=== PATIENT | female | born 1940 | race Caucasian/White ===

== ENCOUNTER → 2024-11-09 | Outpatient (CLI) | payer MEDICARE, SELFPAY ==
[2024-11-09 16:51] LABS: Collection Type, Urine Clean Catch; Squamous Epithelial Cell,Urine 0 /hpf (0-5)
[2024-11-09 17:40] LABS: Basophils % (Auto) 0 % (0-2.5); Eosinophils % (Auto) 0 % (0-10); Hematocrit 33.7 % (36.0-46.0); Hemoglobin 11.5 g/dL (12.0-16.0); Immature Granulocytes % (Auto) 2 % (0-0); Immature Granulocytes Auto 0.25 Thou/mm3 (0.00-0.00); Lymphocytes # (Auto) 0.7 Thou/mm3 (1.0-4.8); Lymphocytes % (Auto) 6 % (10-50); Mean Corpuscular HGB Conc 34.1 g/dl (31.0-37.0); Mean Corpuscular Hemoglobin 39.8 pg (25.0-35.0); Mean Corpuscular Volume 117 fL (80-100); Monocytes # (Auto) 0.1 Thou/mm3 (0.0-0.8); Monocytes % (Auto) 1 % (0-12); Neutrophils # (Auto) 10.2 Thou/mm3 (1.8-7.7); Neutrophils % (Auto) 90 % (37-80); Nucleated Red Blood Cell % 0 /100 WBC (0); Platelet Count 463 Thou/mm3 (140-440); RDW Standard Deviation 72.8 fL (36.4-46.3); Red Blood Count 2.89 Miln/mm3 (4.00-5.20); White Blood Count 11.3 Thou/mm3 (3.6-11.0)
[2024-11-09 17:53] LABS: B-Type Natriuretic Peptide 296 pg/mL (0-100)
[2024-11-09 18:02] LABS: Bacteria,Urine Rare; Bilirubin,Urine Negative (Negative); Blood,Urine Negative (Negative); Clarity,Urine Clear (Clear/Hazy); Color,Urine Lt-Yellow (Lt Yel-Yel); Glucose, Urine Negative (Negative); Hyaline Casts,Urine < 1 /hpf (0-1); Ketones,Urine Negative (Negative); Leukocyte Esterase,Urine Positive (Negative); Nitrite,Urine Negative (Negative); PH,Urine 6.5 (5.0-7.0); Protein,Urine Negative (Neg - Trace); RBC,Urine 1 /hpf (0-3); Specific Gravity,Urine 1.009 (1.001-1.035); Urobilinogen,Urine Negative mg/dL (0.0-1.0); WBC,Urine 2 /hpf (0-5)
[2024-11-09 18:11] LABS: Alanine Aminotransferase 16 U/L (10-49); Albumin/Globulin Ratio 1.5 (1.2-2.2); Alkaline Phosphatase 40 U/L (46-116); Anion Gap 7 (7-16); Aspartate Amino Transferase 26 U/L (0-34); BUN/Creatinine Ratio 20 Ratio (12-20); Bilirubin,Total 1.2 mg/dL (0.3-1.2); Blood Urea Nitrogen 22 mg/dL (9-23); Calcium 9.2 mg/dL (8.3-10.6); Calcium (Corrected) 9.2 mg/dL (8.5-10.1); Carbon Dioxide 29.4 mMol/L (20.0-31.0); Chloride 98 mMol/L (98-107); Creatinine (Component) 1.1 mg/dL (0.6-1.3); Globulin 2.6 gm/dL (2.3-3.5); Glucose 92 mg/dL (74-106); Osmolality,Calculated 271 (275-295); Potassium 4.9 mMol/L (3.4-5.1); Sodium 134 mMol/L (136-145); Total Protein 6.6 gm/dL (5.7-8.2); Troponin I < 0.020 ng/mL (0.0-0.045); eGFR 50 See Note
[2024-11-09 18:33] LABS: D-Dimer < 250 ng/mL (<600)
== END | disposition home or self-care (01) ==
LOC: COPL 16:17
PROVIDERS: PCP Specialist; Referring Provider Specialist; Visit Provider Specialist
DX: R22.43 Localized swelling, mass and lump, lower limb, bilateral (principal); R07.9 Chest pain, unspecified; R41.0 Disorientation, unspecified
CPT/HCPCS: 36415; 80053; 81001; 83880; 84484; 85025; 85379; 87077; 87086; 87186

== ENCOUNTER 2024-12-07 09:56 | Emergency (ER) | payer MEDICARE, SELFPAY ==
[2024-12-07 10:06] VITALS: BP 181/70; PULSE 83; RESP 18; TEMP 36.9; O2SAT 96
--- NOTE | 2024-12-07 11:02 | EKG_ITS ---
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: : 1940 Requested By: Landry Norton Order Number: [id number] Reading MD: Landry Norton Measurements Intervals Susan Rate: 84 P: MO: QRS: -54 QRSD: 91 T: 87 QT: 360 QTc: 426 Interpretive Statements ATRIAL FLUTTER/TACHYCARDIA LEFT AXIS DEVIATION [QRS AXIS < -30] POSSIBLE ANTERIOR MYOCARDIAL INFARCTION , PROBABLY OLD [30 ms Q WAVE IN V3/V4, OR R < 0.2 mV IN V4] Compared to ECG 01/14/2023 10:09:15 Left-axis deviation now present Atrial fibrillation no longer present Ventricular premature complex(es) no longer present Aberrant conduction of supraventricular beat(s) no longer present Myocardial infarct finding still present /store/S0/[id number].pdf
--- NOTE | 2024-12-07 11:02 | XR_ITS ---
Examination: PA chest single view Technique: Upright PA chest single view Exam date and time: December 07, 2024, 11:10 AM Indications: Onset of bleeding beginning 3 days ago. Findings: Moderate CHF. Mild enlargement cardiac contour. Prominent vascular congestion. Perihilar basilar edema. Consider superimposed pneumonia right base Impression: Moderate CHF Consider superimposed pneumonia right base.
--- NOTE | 2024-12-07 11:02 | PD.EDRME ---
Rapid Medical Screening Exam [facility] Arrival date/time: 12/07/24 09:56 CC: Shortness of breath HPI progressive worsening over the past 3 days now sitting upright oxygen increased from 2 to 3 L nasal cannula has a history of pulmonary fibrosis, COPD, CHF and is residing in a assisted care facility. Denies fever or chest pain. Chief Complaint: Shortness of Breath/Dyspnea Time Seen by Provider: 12/07/24 11:01 Vital signs: Vital Signs Temperature 98.4 F 12/07/24 10:06 Pulse Rate 83 12/07/24 10:06 Respiratory Rate 18 12/07/24 10:06 Blood Pressure 181/70 H 12/07/24 10:06 Pulse Oximetry (%) 96 12/07/24 10:06 Oxygen Delivery Method Nasal Cannula 12/07/24 10:06
[2024-12-07 11:33] LABS: Collection Type, Urine Clean Catch; Squamous Epithelial Cell,Urine 0 /hpf (0-5)
[2024-12-07 11:47] LABS: Bilirubin,Urine Negative (Negative); Blood,Urine Negative (Negative); Clarity,Urine Clear (Clear/Hazy); Color,Urine Lt-Yellow (Lt Yel-Yel); Glucose, Urine Negative (Negative); Ketones,Urine Negative (Negative); Leukocyte Esterase,Urine Negative (Negative); Nitrite,Urine Negative (Negative); Protein,Urine Trace (Neg - Trace); RBC,Urine 4 /hpf (0-3); Specific Gravity,Urine 1.011 (1.001-1.035); Urobilinogen,Urine Negative mg/dL (0.0-1.0); WBC,Urine 2 /hpf (0-5)
[2024-12-07 12:07] LABS: Basophils % (Auto) 0 % (0-2.5); Eosinophils % (Auto) 0 % (0-10); Hematocrit 32.8 % (36.0-46.0); Hemoglobin 11.1 g/dL (12.0-16.0); Immature Granulocytes % (Auto) 2 % (0-0); Immature Granulocytes Auto 0.22 Thou/mm3 (0.00-0.00); Lymphocytes # (Auto) 0.5 Thou/mm3 (1.0-4.8); Lymphocytes % (Auto) 5 % (10-50); Mean Corpuscular HGB Conc 33.8 g/dl (31.0-37.0); Mean Corpuscular Hemoglobin 39.5 pg (25.0-35.0); Mean Corpuscular Volume 117 fL (80-100); Monocytes # (Auto) 0.1 Thou/mm3 (0.0-0.8); Monocytes % (Auto) 1 % (0-12); Neutrophils # (Auto) 9.3 Thou/mm3 (1.8-7.7); Neutrophils % (Auto) 91 % (37-80); Nucleated Red Blood Cell % 0 /100 WBC (0); Platelet Count 350 Thou/mm3 (140-440); RDW Standard Deviation 71.6 fL (36.4-46.3); Red Blood Count 2.81 Miln/mm3 (4.00-5.20); White Blood Count 10.2 Thou/mm3 (3.6-11.0)
[2024-12-07 12:23] LABS: INR 1.3 (0.9-1.3); Partial Thromboplastin Time 34.5 Seconds (22.0-36.0); Prothrombin Time 13.7 Seconds (9.0-12.2)
[2024-12-07 12:39] LABS: Alanine Aminotransferase 14 U/L (10-49); Albumin, Serum 3.7 gm/dL (3.4-4.8); Albumin/Globulin Ratio 1.4 (1.2-2.2); Alkaline Phosphatase 40 U/L (46-116); Anion Gap 7 (7-16); Aspartate Amino Transferase 27 U/L (0-34); BUN/Creatinine Ratio 20 Ratio (12-20); Bilirubin,Total 1.4 mg/dL (0.3-1.2); Blood Urea Nitrogen 16 mg/dL (9-23); Calcium 9.4 mg/dL (8.3-10.6); Calcium (Corrected) 9.6 mg/dL (8.5-10.1); Carbon Dioxide 28.1 mMol/L (20.0-31.0); Chloride 98 mMol/L (98-107); Creatinine (Component) 0.8 mg/dL (0.6-1.3); Globulin 2.7 gm/dL (2.3-3.5); Glucose 102 mg/dL (74-106); Magnesium 1.5 mg/dL (1.6-2.6); Osmolality,Calculated 267 (275-295); Potassium 4.2 mMol/L (3.4-5.1); Sodium 133 mMol/L (136-145); Total Protein 6.4 gm/dL (5.7-8.2); Troponin I < 0.020 ng/mL (0.0-0.045); eGFR > 60 See Note
[2024-12-07 12:52] LABS: Amphetamine/Methamp Scrn,U Negative (Negative); Barbiturate Screen,Urine Negative (Negative); Benzodiazepines Screen,Urine Negative (Negative); Benzoylecgonine Screen, Ur Negative (Negative); Opiate Screen,Urine Negative (Negative); THC Screen,Urine Negative (Negative)
[2024-12-07 12:54] LABS: B-Type Natriuretic Peptide 301 pg/mL (0-100)
[2024-12-07 14:16] LABS: Fentanyl Screen,Urine Negative (Negative)
[2024-12-07 15:14] LABS: LDH (Lactate Dehydrogenase) 402 U/L (120-246)
[2024-12-07 15:38] VITALS: BP 123/69; PULSE 79; RESP 18; TEMP 36.6; O2SAT 100
--- NOTE | 2024-12-07 16:45 | EDNOTE_ITS ---
<Statement entered by Marlene Guerra MD - 12/07/24 17:38> As co-signing physician, I was present and available for consult prn. I concur with the plan and care as documented by the midlevel provider. ED SOB =RME/HPI General Chief Complaint: Shortness of Breath/Dyspnea Stated Complaint: SOB Time Seen by Provider: 12/07/24 11:01 Arrival date/time: 12/07/24 09:56 RME / HPI RME / HPI Narrative: 84-year-old female patient, with significant history of pulmonary fibrosis, COPD, congestive heart failure, residing in an assisted penitentiary, came in for evaluation regarding worsening shortness of breath. Has been having worsening shortness of breath for the last 3 days, worse this morning associated with cough. Denies any chest pain denies any fever denies any other complaints no medication was taken prior to arrival. Patient is on oxygen 24/7 2 to 3 L nasal cannula. Related Data Home Medications ?Medication ?Instructions ?Recorded ?Confirmed allopurinol 300 mg tablet 300 mg PO QDAY 10/11/1801/17 alpha lipoic acid 600 mg capsule 600 mg PO QDAY 07/09/23 atorvastatin 40 mg tablet 40 mg PO QDAY 01/14/2308/30 benazepril 10 mg tablet 10 mg PO BID 01/14/23 carvedilol 12.5 mg tablet 12.5 mg PO TID 01/14/2301/17 cetirizine 10 mg tablet 10 mg PO QDAY 01/14/2308/30 cholecalciferol (vitamin D3) 125 5,000 unit PO QDAY 08/30/23 mcg (5,000 unit) tablet (Vitamin D3) famotidine 40 mg tablet 40 mg PO QDAY 01/14/2308/30 folic acid 1 mg tablet 1 mg PO TID 01/14/23 3 mirabegron 50 mg tablet,extended 50 mg PO QDAY 3 08/30/23 release 24 hr (Myrbetriq) montelukast 10 mg tablet 10 mg PO QDAY 01/14/2308/30 omeprazole 40 mg capsule,delayed 40 mg PO QDAY 3 08/30/23 release apixaban 2.5 mg tablet (Eliquis) 2.5 mg PO BID 3 08/30/23 nitroglycerin 0.4 mg sublingual 0.4 mg buccal Q5M PRN Chest Pain 01/15/23 08/30/23 tablet ondansetron HCl 4 mg tablet 4 mg PO QDAY PRN Nausea 08/30/23 albuterol sulfate 90 mcg/actuation 1 inh inhalation BI D 07/09/23 08/30/23 aerosol inhaler bumetanide 1 mg tablet 1 mg PO QDAY 07/09/23 fluticasone 250 mcg-salmeterol 50 1 inh inhalation BID 07/09/23 08/30/23 mcg/dose blistr powdr for inhalation (Advair Diskus) guaifenesin 600 mg tablet,extended 600 mg PO BID 07/0907/09/23 release hydroxyurea 500 mg capsule 1,000 mg PO HS 07/09/2301/17 potassium chloride 10 mEq 10 meq PO QDAY 07/09/2306/27 capsule,extended release Previous Rx's ?Medication ?Instructions ?Recorded aspirin 81 mg tablet,delayed 81 mg PO QDAY #30 tabs release levofloxacin 500 mg tablet 500 mg PO Q24H 7 days #7 ta bs 12/07/24 Allergies Allergy/AdvReac Type Severity Reaction Status Date / Time iodine Allergy Severe Swelling Verified 12/07/24 10:25 of Lip/Tongue/Throat shellfish derived Allergy Severe Swelling Verified 12/07/24 10:25 of Lip/Tongue/Throat Review of Systems Review of Systems Narrative Review of Systems: Review of system reviewed and within normal limits except mentioned in HPI ED Exam Narrative Physical exam: VITAL SIGNS: Reviewed. GENERAL APPEARANCE: Alert and interactive, follows commands, no acute distress, cachectic HEAD AND FACE: Non-traumatic. ENT: PERRL, pink conjunctivitis, eyelid no trauma, Mucous membrane moist. NECK: Supple, nontender, no nuchal rigidity. CHEST: No tenderness, no crepitus, no paradoxical movement, no retractions. LUNGS: Clear, well ventilated, symmetric, no rales, no wheezing, no ronchi, no stridor, good breath sounds bilaterally. HEART: Regular rate, regular rhythm, no murmur, no gallops. ABDOMEN: Soft, positive bowel sounds, nondistended, no guarding, nontender, no rebound, no masses, RECTAL: Deferred. GENITAL: Deferred. NEUROLOGICAL: Gross motor function intact sensory function intact, Appropriate for age. MUSCULOSKELETAL: low back nontender, full range of motion. EXTREMITIES: Nontender, full range of motion. Bilateral lower extremity +2 edema SKIN: Color pink, dry, no rash, no lacerations, no abrasions, no contusions. LYMPHATICS: Deferred. Course Quality Measures none Orders Category Date Time Status Bedside COVID-19 Antigen Test NOW Care 12/07/24 11:02 Active Bedside Influenza A&B Antigen Test NOW Care 12/07/24 11:02 Completed EKG (ED ONLY) *Do not use* NOW Care 12/07/24 11:02 Completed EKG (ED Only) Stat Exams 12/07/24 11:02 Draft XR chest 1V Stat Exams 12/07/24 11:02 Completed B-Type Natriuretic Peptide Stat Lab 12/07/24 11:46 Completed CBC Stat Lab 12/07/24 11:46 Completed Comprehensive Metabolic Panel Stat Lab 12/07/24 11:46 Completed Drug Screen,Urine Stat Lab 12/07/24 11:27 Completed LDH (Lactate Dehydrogenase) Stat Lab 12/07/24 11:46 Completed Magnesium Stat Lab 12/07/24 11:46 Completed Partial Thromboplastin Time Stat Lab 12/07/24 11:46 Completed Prothrombin Time with INR Stat Lab 12/07/24 11:46 Completed Troponin I Stat Lab 12/07/24 11:46 Completed Urinalysis Stat Lab 12/07/24 11:27 Completed Vital Signs Vital signs: Vital Signs Temperature 98.4 F 12/07/24 10:06 Pulse Rate 83 12/07/24 10:06 Respiratory Rate 18 12/07/24 10:06 Blood Pressure 181/70 H 12/07/24 10:06 Pulse Oximetry (%) 96 12/07/24 10:06 Oxygen Delivery Method Nasal Cannula 12/07/24 10:06 Shortness of Breath / Dyspnea MDM Narrative MDM Narrative:: 84-year-old female patient, with 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 Has been having worsening shortness of breath for the last 3 days, worse this morning associated with cough. Denies any chest pain denies any fever denies any other complaints no medication was taken prior to arrival. Patient is on oxygen 24/7 2 to 3 L nasal cannula. Patient's laboratory workup came back with no leukocytosis, the rest of the labs unremarkable. Urinalysis no UTI. Chest x-ray showed beginning right base pneumonia, congestive heart failure. Results discussed with the patient and family. Patient will be sent home on Levaquin. Currently patient told me that her symptoms is better. Satting 100% on 2 L nasal cannula Patient data External records reviewed:: None Clinical information provided by:: patient Social determinants that could affect healthcare access:: none Patient has the following chronic illnesses:: COPD, pulmonary fibrosis, congestive heart failure How is presenting disease/condition affected by chronic disease/condition?: exacerbated by Evaluation data The following diagnostics were reviewed and interpreted by me:: lab results, radiology exam(s) and EKG tracing(s) Lab and/or radiology exams considered but not ordered:: None Interpretation Summary: See results in MDM. EKG showed normal sinus rhythm, no ST segment elevation or depression noted. Medications / Prescriptions Medications or Prescriptions considered but not ordered:: None Medication administrations:: None Consultations Consultation(s) initiated? (list below): No Diagnosis Shortness of Breath Differential Diagnosis: acute exacerbation of chronic obstructive airways disease, congestive heart failure and community acquired pneumonia Most likely diagnosis given after review of the tests above:: Shortness of breath, pneumonia Admission Indicated Admission indicated?: not indicated Admission Request Was there a request for admission?: No Disposition Plan Disposition Plan: Discharge Discharge Attestation Discharge Attestation: The patient and all family members were given an opportunity to ask questions and understood the discharge instructions. Discharge instructions specifically effects, indications for sooner follow up or return to the emergency department, and the expected course of current diagnosis. Patient condition: Stable Discharge Plan Plan Patient Disposition: HOME (Self Care) Disposition Comment: Stable Prescriptions/Referrals Prescriptions/Med Rec: New levofloxacin 500 mg tablet 500 mg PO Q24H 7 Days Qty: 7 0RF No Action allopurinol 300 mg Tablet 300 mg PO QDAY alpha lipoic acid 600 mg Capsule 600 mg PO QDAY omeprazole 40 mg capsule,delayed release(DR/EC) 40 mg PO QDAY atorvastatin 40 mg tablet 40 mg PO QDAY cetirizine 10 mg Tablet 10 mg PO QDAY famotidine 40 mg tablet 40 mg PO QDAY folic acid 1 mg tablet 1 mg PO TID montelukast 10 mg tablet 10 mg PO QDAY benazepril 10 mg tablet 10 mg PO BID cholecalciferol (vitamin D3) [Vitamin D3] 125 mcg (5,000 unit) Tablet 5,000 unit PO QDAY Myrbetriq 50 mg tablet extended release 24 hr 50 mg PO QDAY carvedilol 12.5 mg tablet 12.5 mg PO TID ondansetron HCl 4 mg tablet 4 mg PO QDAY PRN (Reason: Nausea) Patient Comments: TAKE 1 TABLET BY MOUTH EVERY DAY NEEDED FOR NAUSEA AND VOMITING FOR 15 DAYS nitroglycerin 0.4 mg tablet, sublingual 0.4 mg BUCCAL Q5M PRN (Reason: Chest Pain) Patient Comments: 1 TABLET SUBLINGUAL EVERY 5 MINUTES NEEDED CHEST PAIN MAXIMUM OF 3 DOSES 30 DAYS Eliquis 2.5 mg tablet 2.5 mg PO BID aspirin 81 mg tablet,delayed release (DR/EC) 81 mg PO QDAY Qty: 30 3RF hydroxyurea 500 mg capsule 1,000 mg PO HS fluticasone propion-salmeterol [Advair Diskus] 250-50 mcg/dose Blister With Device 1 inh INHALATION BID potassium chloride 10 mEq capsule, extended release 10 meq PO QDAY guaifenesin 600 mg Tablet Extended Release 600 mg PO BID bumetanide 1 mg tablet 1 mg PO QDAY albuterol sulfate 90 mcg/actuation Hfa Aerosol Inhaler 1 inh INHALATION BID Referrals: Burak Hebert MD [Primary Care Provider] - In 1 week Problem List Clinical Impression: Shortness of breath, Pneumonia Patient/Caregiver Discharge Instructions Discharge Activity: activity as tolerated Education Materials: ED Shortness of Breath (Dyspnea), ED Pneumonia (Adult) Additional Instructions: Thank you for the opportunity for serving you today. You are stable for discharged . You are advised to: Follow-up with your PCP in 1 to 2 days Return to ED for worsening of symptoms Print Language: French Stand Alone Forms: [facility]ena Award Info., Patient Portal Info Letter PA/AMAURI Supervising Physician SOLIS/AMAURI Supervising Physician: MD Mari
== END 2024-12-07 17:23 | disposition home or self-care (01) ==
PROVIDERS: Registered Nurse General Practice; Emergency Provider Emergency Medicine; PCP Specialist
DX: J18.9 Pneumonia, unspecified organism (principal); J44.0 Chronic obstructive pulmonary disease with (acute) lower respiratory infection; I50.9 Heart failure, unspecified; Z99.81 Dependence on supplemental oxygen
CPT/HCPCS: 36415; 71045; 80053; 80307; 81001; 83615; 83735; 83880; 84484; 85025; 85610; 85730; 87400; 87811; 93005; 99283

== ENCOUNTER 2024-12-18 07:34 | Observation (INO) | payer MEDICARE, SELFPAY ==
[2024-12-18] VITALS (8 sets, daily range): BP systolic 132–170; BP diastolic 57–83; PULSE 62–88; RESP 14–20; TEMP 36.4–37.1; O2SAT 92–100; BMI 24.0; BMI 23.8
--- NOTE | 2024-12-18 08:15 | XR_ITS ---
Examination: Venous duplex lower extremity sonogram, bilateral. Date and time of exam: December 18, 2024 1022 hours INDICATIONS: Bilateral leg pain redness and swelling beginning 2 days ago Technique: Multiple sonographic images of the deep venous system have been obtained. B-mode/2-D grayscale imaging of vascular structures and Doppler spectral analysis (waveforms) and color performed Both legs are examined. Findings: Deep venous systems do not demonstrate abnormal echogenicity. All visualized deep veins exhibit compressibility. All visualized deep veins exhibit augmentation. Leg edema Impression: Negative for deep vein thrombosis
--- NOTE | 2024-12-18 08:17 | PD.EDADULT ---
ED General RME/HPI General Chief complaint: Extremity Injury, Lower Stated complaint: RIGHT LEG PAIN Time Seen by Provider: 12/18/24 07:50 Arrival date/time: 12/18/24 07:34 RME / HPI RME / HPI narrative: DR. MOROCHO MAIN ED EVALUATION: 84 year old female with past medical history significant for pulmonary fibrosis, COPD, and congestive heart failure presents to the Emergency Department BIBA concerned about her right leg having ecchymosis and/or bruising under swelling but also states her left legs been swollen also. She has no known trauma. There was no known external bleeding. She does not recall any procedure done to that leg she was just in the hospital diagnosed with a pneumonia was put on levofloxacin. Patient states the strong antibiotic that she just got is the cause of this. Related Data Home Medications ?Medication ?Instructions ?Recorded ?Confirmed allopurinol 300 mg tablet 300 mg PO QDAY 10/11/18 08/30/23 alpha lipoic acid 600 mg capsule 600 mg PO QDAY 01/14/23 07/09/23 atorvastatin 40 mg tablet 40 mg PO QDAY 01/14/23 08/30/23 benazepril 10 mg tablet 10 mg PO BID 01/14/23 08/30/23 carvedilol 12.5 mg tablet 12.5 mg PO TID 01/14/23 08/30/23 cetirizine 10 mg tablet 10 mg PO QDAY 01/14/23 08/30/23 cholecalciferol (vitamin D3) 125 5,000 unit PO QDAY 01/14/23 08/30/23 mcg (5,000 unit) tablet (Vitamin D3) famotidine 40 mg tablet 40 mg PO QDAY 01/14/23 08/30/23 folic acid 1 mg tablet 1 mg PO TID 01/14/23 08/30/23 mirabegron 50 mg tablet,extended 50 mg PO QDAY 01/14/23 08/30/23 release 24 hr (Myrbetriq) montelukast 10 mg tablet 10 mg PO QDAY 01/14/23 08/30/23 omeprazole 40 mg capsule,delayed 40 mg PO QDAY 01/14/23 08/30/23 release apixaban 2.5 mg tablet (Eliquis) 2.5 mg PO BID 01/15/23 08/30/23 nitroglycerin 0.4 mg sublingual 0.4 mg buccal Q5M PRN Chest Pain 01/15/23 08/30/23 tablet ondansetron HCl 4 mg tablet 4 mg PO QDAY PRN Nausea 01/15/23 08/30/23 albuterol sulfate 90 mcg/actuation 1 inh inhalation BID 07/09/23 08/30/23 aerosol inhaler bumetanide 1 mg tablet 1 mg PO QDAY 07/09/23 08/30/23 fluticasone 250 mcg-salmeterol 50 1 inh inhalation BID 07/09/23 08/30/23 mcg/dose blistr powdr for inhalation (Advair Diskus) guaifenesin 600 mg tablet,extended 600 mg PO BID 07/09/23 07/09/23 release hydroxyurea 500 mg capsule 1,000 mg PO HS 07/09/23 08/30/23 potassium chloride 10 mEq 10 meq PO QDAY 07/09/23 07/09/23 capsule,extended release Previous Rx's ?Medication ?Instructions ?Recorded aspirin 81 mg tablet,delayed 81 mg PO QDAY #30 tabs 01/16/23 release Allergies Allergy/AdvReac Type Severity Reaction Status Date / Time iodine Allergy Severe Swelling Verified 12/07/24 10:25 of Lip/Tongue/Throat shellfish derived Allergy Severe Swelling Verified 12/07/24 10:25 of Lip/Tongue/Throat Review of Systems Review of Systems Systems Reviewed: All systems reviewed, normal except as documented Narrative Review of Systems: Constitutional: DENIES: fevers; Eyes: DENIES: loss of vision; Head/Ear/Nose: DENIES: loss of hearing. Throat: DENIES: dysphagia. Cardiovascular: DENIES: chest pain, dyspnea, or syncope. Respiratory: DENIES: shortness of breath; Gastrointestinal: DENIES: rectal bleeding or melena. Genitourinary: DENIES: dysuria (painful or difficult urination); Musculoskeletal: DENIES: arthralgia (pain in a joint); Skin: POSITIVES: right leg having ecchymosis and/or bruising under swelling but also states her left legs been swollen also; DENIES: rash; Neurological: DENIES: loss of function or movement; Psychiatric: DENIES: recent major life stressor, emotional problem, illicit drug use or abuse; Endocrinology: DENIES: weight change,; Hematologic/Lymphatic: DENIES: abnormal bruising. Allergic/Immunologic: DENIES: urticaria (hives). Past Medical History Past Medical History NEUROLOGIC: Positive Neurological Disorders, Cerebrovascular Accident, Transient Ischemic Attacks (TIA) and Peripheral Neuropathy; Negative Head Trauma CARDIAC: Positive Cardiac Arrhythmia, Atrial Fibrillation, Coronary Artery Disease, Edema, Deep Vein Thrombosis and Hypertension RESPIRATORY: Positive Asthma, Bronchitis and Pulmonary Fibrosis GASTROINTESTINAL: Positive Gastrointestinal Disorders, Gall Bladder Disease (removed), Gastrointestinal Bleed, Ulcer, Hiatal Hernia and Gastroesophageal Reflux Disease GENITOURINARY: Positive Genitourinary Disorders and Kidney Stones MUSCULOSKELETAL: Positive Musculoskeletal Disorders, Arthritis and Fibromyalgia ENT: Positive Cataracts and Deafness ([place]); Negative Glaucoma, Blind, Retinal Detachment, Macular Degeneration, Ear Infection, Head Trauma or Eye Prosthesis ENDOCRINE: Negative Endocrine Disorders, Diabetes Mellitus Type 1, Diabetes Mellitus Type 2, Hypoglycemia, Durham's Syndrome, Kevin's Disease, Hyperthyroidism, Hypothyroidism, Parathyroid Disease, Pituitary Disease, Systemic Lupus Erythematosus, Syndrome of Inappropriate Antidiuretic Hormone (SIADH), Adrenal Disease or Graves' Disease HEMATOLOGIC: Positive Blood Disorders and Clotting Problems; Negative Anemia, Leukemia, Hemophilia, Thalassemia or Sickle Cell Disease OTHER HISTORY: Positive Autoimmune Disease, Falls, Chemotherapy, Chicken Pox and Cancer Family History FAMILY HISTORY: Positive Family Respiratory Disorders, Family Cardiac Disorders, Family Gastrointestinal Problems, Family Cancer and Family Surgery; Negative Family Neurologic Problems, Family Psychiatric Problems or Family Anesthesia Reaction Surgical History SURGICAL: Positive Coronary Stent (4 total) and Hysterectomy; Negative Cardiac Surgery, Open Heart Surgery, Coronary Artery Bypass Graft, Valve Replacement, Vascular Surgery, Cardiac Catheterization, Pacemaker, Angiogram, Auto Implanted Cardiovert Defib, Carotid Endarterectomy, Endocrine Surgery, Thyroidectomy, Ear Surgery, Tympanostomy Tube, Eye Surgery, Nose Surgery, Oral Surgery, Tonsillectomy, Adenoidectomy, Cochlear Implant, Corneal Transplant, Throat Surgery, Abdominal Surgery, Tracheostomy, Gastric Bypass Surgery, Gastrostomy, Bowel Surgery, Nephrectomy, Transurethral Resection, Joint Replacement, Amputation, Open Reduction Internal Fixation, Arthroscopy, Neurologic Surgery, Brain Shunt, Mastectomy, Lumpectomy, Tubal Ligation, Section or Vasectomy Social History SMOKING STATUS: Never smoker SUBSTANCE USE: does not use ALCOHOL: Never ED Exam Narrative Physical exam: Physical Exam: General: The vital signs were reviewed. The patient is non-toxic, in no apparent distress and appears healthy with a patent airway, no respiratory distress and has no apparent circulatory problems. Head & Scalp: Normocephalic, atraumatic. Face: Appears normal and is without lesions, deformity. Ears: Left external pinna appears normal. Right external pinna appears normal. Eyes: The sclera is anicteric. No obvious photophobia. The Left and Right Orbit/Lid/Conjunctiva appears normal without swelling, discoloration or injection. Nose: The nose is without deformity, discharge or tenderness; Throat: Appears normal. The mucous membranes are pink and moist without exudates, redness or mass seen. The tongue appears normal. Neck: The neck is supple and no apparent mass or adenopathy. Chest: The chest wall is normal in size and symmetry and has no chest wall tenderness or crepitus. The patient displays normal ventilator effort without retractions, accessory muscle use and has adequate air movement bilaterally with no wheezes and no rales. Cardiovascular: Regular rate and rhythm; No murmurs, rubs, or gallops; Gastrointestinal: The abdomen appears normal. No obvious hernias or mass. The abdomen is soft and benign, non-distended, with no pain, no guarding and no rebound tenderness. Bowel sounds are present and normal sounding. No CVA tenderness. Genitourinary: Back/Spine: Extremities/Musculoskeletal/lymphatic: Bilateral lower leg are large probably chronicly this way but the right posterior leg from the calf up to the thigh posteriorly and laterally has a large amount of ecchymosis with no clear etiology is there is no wound or break in the skin seen. There does not appear to be any lymphangitis and it seems to be a dependent ecchymosis. Note patient is on Xarelto. The bilateral upper and lower extremities are warm. There is no evidence of arterial insufficiency. There is no evidence of venous insufficiency/edema. The patient spontaneously moves bilateral upper and lower extremities with no pain and no limitation of movement. There is no apparent, injury or trauma. Skin: The skin is warm, dry and intact. No rashes. No petechia. No purpura. No abnormal bruising. The color is appropriate with no cyanosis. Mental status/Psychiatric: Mental status is appropriate for age. The patient has no apparent delusions, visual hallucinations, no apparent audible hallucinations. The patient has no apparent suicidal thoughts/ideation and no apparent homicidal thoughts/ideation. Neurological: The patient is awake, alert, interactive, cordial, cooperative and is oriented to name and situation. The patient follows commands and answers historical question with no impairment. There is no visual disturbance apparent. The pupils are equal and reactive bilaterally with normal eye movements and no diplopia The bilateral upper and lower extremities have normal strength, normal range of motion and normal functioning. The gait, station and balance appear to be baseline with no acute change Course Quality Measures none Orders Category Date Time Status US venous doppler LE BI Stat Exams 12/18/24 08:15 Completed B-Type Natriuretic Peptide Stat Lab 12/18/24 09:05 Completed Blood Culture (Lab) Stat Lab 12/18/24 09:11 Received CBC Stat Lab 12/18/24 09:05 Completed Comprehensive Metabolic Panel Stat Lab 12/18/24 09:05 Completed Lactate (Lactic Acid) Stat Lab 12/18/24 09:05 Completed PTT [Partial Thromboplastin Time] Stat Lab 12/18/24 09:05 Completed Prothrombin Time with INR Stat Lab 12/18/24 09:05 Completed Troponin I Stat Lab 12/18/24 09:05 Completed Urinalysis Stat Lab 12/18/24 14:40 Completed Urinalysis, C/S if Indicated Stat Lab 12/18/24 14:40 Completed Venous Blood Gas Stat Lab 12/18/24 09:05 Completed Vital Signs Vital signs: Vital Signs Temperature 98.1 F 12/18/24 07:49 Pulse Rate 79 12/18/24 07:49 Respiratory Rate 15 12/18/24 07:49 Blood Pressure 170/83 H 12/18/24 07:49 Pulse Oximetry (%) 97 12/18/24 07:49 Oxygen Delivery Method Nasal Cannula 12/18/24 07:49 Oxygen Flow Rate 2 12/18/24 07:49 [facility] Patient data External records reviewed:: EMS form Clinical information provided by:: patient and EMS Social determinants that could affect healthcare access:: none Patient has the following chronic illnesses:: Pulmonary fibrosis, COPD, and congestive heart failure. She was just in the hospital diagnosed with a pneumonia was put on levofloxacin. How is presenting disease/condition affected by chronic disease/condition?: exacerbated by Evaluation data The following diagnostics were reviewed and interpreted by me:: lab results and radiology exam(s) Lab and/or radiology exams considered but not ordered:: none Interpretation Summary: See above under MDM narrative. RADIOLOGY Procedure(s): US venous doppler LE BI Accession Number(s): [id number] cc: Burak Hebert MD; Charles Morocho MD; Saeid Zavala MD~ Examination: Venous duplex lower extremity sonogram, bilateral. Date and time of exam: December 18, 2024 1022 hours INDICATIONS: Bilateral leg pain redness and swelling beginning 2 days ago Technique: Multiple sonographic images of the deep venous system have been obtained. B-mode/2-D grayscale imaging of vascular structures and Doppler spectral analysis (waveforms) and color performed Both legs are examined. Findings: Deep venous systems do not demonstrate abnormal echogenicity. All visualized deep veins exhibit compressibility. All visualized deep veins exhibit augmentation. Leg edema Impression: Negative for deep vein thrombosis Dictated By: Saeid Zavala MD Medications Medications considered but not ordered:: none Medication administrations:: Medication Administration History Acetaminophen (Acetaminophen 325 Mg Tablet) 650 mg PO Q6H PRN PRN Reason: Pain 1-3 and/or Fever >100.1 Stop: 01/17/25 13:46 Doxycycline Hyclate (Doxycycline 100 Mg Tablet) 100 mg PO BID [facility] Stop: 12/25/24 20:59 Ceftriaxone Sodium/Dextrose (Rocephin/D5w 1gm Iv Premix) 1 gm in 50 mls @ 100 mls/hr IV QDAY [facility] Stop: 12/25/24 14:44 Last Admin: 12/18/24 15:19 Dose: 100 mls/hr Documented By: LIA Ondansetron HCl (Ondansetron Inj 2 Mg/Ml Inj 2 Ml) 4 mg IV Q6H PRN; Protocol PRN Reason: NAUSEA OR VOMITING Stop: 01/17/25 13:46 Sennosides (Senna Tablet) 1 tab PO QDAY [facility]; Protocol Stop: 01/18/25 08:59 Discontinued Medications Heparin Sodium (Porcine) (Heparin Sod Inj 5000 Unit/Ml Vial) 5,000 unit SC Q12HR HEIKE Stop: 01/01/25 20:59 see above Consultations Consultation(s) initiated? (list below): Yes Consultation #1 (Physician, Specialty, Details): Discussed test HPI, PMHx, lab, radiology results and/or management with Dr. Iraheta. She will come and evaluate the patient at bedside. Time: 12:35 Consultation #2 (Physician, Specialty, Details): Discussed test HPI, PMHx, lab, radiology results and/or management with hospitalist. Will admit for further evaluation and management. Accepts patient for admission. Time: 13:40 Diagnosis Differential Diagnosis ED Complaint MDM: echymosis, medication side effect, CHF Most likely diagnosis given after review of the tests above:: See below. Admission Indicated Admission indicated?: indicated Explain why admission is indicated or not indicated:: Diagnoses meet admission criteria. Admission Request Was there a request for admission?: Yes Admission Attestation Admission request attestation: Discussed case with [] from Hospitalist service regarding admission. Discussed patients ED course, exam findings, labs, and radiology results. The Hospitalist [agrees,declines] to accept the patient for admission. Disposition Plan Disposition Plan: Admit Medical Decision Making MDM Narrative MDM Narrative: Patient presents with concerns of her purple discoloration of her right leg from the calf to the thigh posteriorly medially with the foot appears uninvolved ankle is spared there is no obvious redness or lymphangitic streak but a most likely a gravity dependent ecchymosis from lying flat. Patient is on Xarelto and appears to be superficial blood of an unknown etiology. Nonetheless she is concerned about her legs having blood clots she is on Eliquis she has had coronary disease and a stroke in the past. Medical workup reveals bilateral Doppler ultrasounds of lower extremities revealing no DVT. White count is 5.7 hemoglobin is 10.4 baselines are from 10.6-11.3. MCV is elevated at 116 going to add on to workup her macrocytosis. PT is 14.0 and INR is 1.3 PTT is 36.5 slightly elevated sodium 132 potassium 4.5 chloride 96 CO2 is 29 BUN 18 creatinine 0.8. Total bilirubin is 1.3 but this is close to her baseline. BNP slightly elevated 377 but this is close to baseline. No urine has been collected as of 1230 hrs. I went back and reevaluated rolled the patient and inspected the butt and back area there is no ecchymosis there. There is a few small scattered ecchymosis on the body otherwise. At this time it is unclear why she has this purpuric rapidly increasing subcutaneous what appears to be ecchymosis but cannot 100% exclude cellulitis though it is not tender in all the blood test rule out against anything like neck Fash or anything else I called the hospital spoke with Dr. Iraheta and she is albert come down and evaluate this patient. Dr. Iraheta came down then later the hospitalist team came down and they evaluated this patient and felt it was best to put the patient in for observation since is on clear what is going on on 1 level just seems like ecchymosis but there is no etiology for this pattern of bruising or layering out of blood and since patient says it is advancing rapidly they can monitor the changes as pen alamo were placed. Daax Tomlin, am scribing for and in the presence of Dr. Morocho. Differential Diagnosis Differential Diagnosis: echymosis, medication side effect, CHF Lab Data 12/18/24 09:05 12/18/24 09:05 Labs: Lab Results 12/18/24 Range/Units 09:05 WBC 5.7 (3.6-11.0) Thou/mm3 RBC 2.63 L (4.00-5.20) Miln/mm3 Hgb 10.4 L (12.0-16.0) g/dL Hct 30.4 L (36.0-46.0) % MCV 116 H (80-100) fL MCH 39.5 H (25.0-35.0) pg MCHC 34.2 (31.0-37.0) g/dl RDW Std Deviation 69.4 H (36.4-46.3) fL Plt Count 244 D (140-440) Thou/mm3 Neut % (Auto) 90 H (37-80) % Lymph % (Auto) 5 L (10-50) % Baldwin % (Auto) 3 (0-12) % Eos % (Auto) 0 (0-10) % Baso % (Auto) 1 (0-2.5) % Neut # (Auto) 5.1 (1.8-7.7) Thou/mm3 Lymph # (Auto) 0.3 L (1.0-4.8) Thou/mm3 Baldwin # (Auto) 0.2 (0.0-0.8) Thou/mm3 Eos # (Auto) 0.0 (0.0-0.5) Thou/mm3 Baso # (Auto) 0.0 (0.0-0.2) Thou/mm3 Immature Gran # (Auto) 0.11 H (0.00-0.00) Thou/mm3 Absolute Nucleated RBC 0.00 (0.00-0.00) Thou/mm3 Immature Gran % 2 H (0-0) % Nucleated RBC % 0 (0) /100 WBC PT 14.0 H (9.0-12.2) Seconds INR 1.3 (0.9-1.3) APTT 36.5 H (22.0-36.0) Seconds VBG pH 7.40 (7.33-7.66) VBG pCO2 51 (36-56) mmHg VBG pO2 28 (15-58) mmHg VBG O2 Sat (Sid) 51 L (96-97) % VBG Base Excess 6 H (-3-3) Sodium 132 L (136-145) mMol/L Potassium 4.5 (3.4-5.1) mMol/L Chloride 96 L (98-107) mMol/L Carbon Dioxide 29.3 (20.0-31.0) mMol/L Anion Gap 7 (7-16) BUN 18 (9-23) mg/dL Creatinine 0.8 (0.6-1.3) mg/dL Estim Creat Clear Calc 45.2 L (>60) mL/min eGFR > 60 (60 - ) See Note BUN/Creatinine Ratio 23 H (12-20) Ratio Glucose 99 (74-106) mg/dL Calculated Osmolality 266 L (275-295) Lactic Acid 1.0 (0.4-2.0) mMol/L Calcium 9.5 (8.3-10.6) mg/dL Corrected Calcium 10.0 (8.5-10.1) mg/dL Total Bilirubin 1.3 H (0.3-1.2) mg/dL AST 21 (0-34) U/L ALT 9 L (10-49) U/L Alkaline Phosphatase 35 L (46-116) U/L Troponin I < 0.020 (0.0-0.045) ng/mL B-Natriuretic Peptide 377 H (0-100) pg/mL Total Protein 5.7 (5.7-8.2) gm/dL Albumin 3.4 (3.4-4.8) gm/dL Globulin 2.3 (2.3-3.5) gm/dL Albumin/Globulin Ratio 1.5 (1.2-2.2) Discharge Plan Plan Patient Disposition: Admit Acute Care w/in Hospital Disposition Comment: Hospitalist to it sort out Problem List Clinical Impression: Ecchymosis, Congestive heart failure, Anticoagulated, History of CVA in adulthood, History of CAD (coronary artery disease)
[2024-12-18 09:34] LABS: Base Excess, Venous 6 (-3-3); O2 Saturation, Venous 51 % (96-97); PCO2, Venous 51 mmHg (36-56); PO2, Venous 28 mmHg (15-58)
[2024-12-18 09:39] LABS: Basophils % (Auto) 1 % (0-2.5); Eosinophils % (Auto) 0 % (0-10); Hematocrit 30.4 % (36.0-46.0); Hemoglobin 10.4 g/dL (12.0-16.0); Immature Granulocytes % (Auto) 2 % (0-0); Immature Granulocytes Auto 0.11 Thou/mm3 (0.00-0.00); Lymphocytes # (Auto) 0.3 Thou/mm3 (1.0-4.8); Lymphocytes % (Auto) 5 % (10-50); Mean Corpuscular HGB Conc 34.2 g/dl (31.0-37.0); Mean Corpuscular Hemoglobin 39.5 pg (25.0-35.0); Mean Corpuscular Volume 116 fL (80-100); Monocytes # (Auto) 0.2 Thou/mm3 (0.0-0.8); Monocytes % (Auto) 3 % (0-12); Neutrophils # (Auto) 5.1 Thou/mm3 (1.8-7.7); Neutrophils % (Auto) 90 % (37-80); Nucleated Red Blood Cell % 0 /100 WBC (0); Platelet Count 244 Thou/mm3 (140-440); RDW Standard Deviation 69.4 fL (36.4-46.3); Red Blood Count 2.63 Miln/mm3 (4.00-5.20); White Blood Count 5.7 Thou/mm3 (3.6-11.0)
[2024-12-18 10:02] LABS: B-Type Natriuretic Peptide 377 pg/mL (0-100)
[2024-12-18 10:05] LABS: Alanine Aminotransferase 9 U/L (10-49); Albumin, Serum 3.4 gm/dL (3.4-4.8); Albumin/Globulin Ratio 1.5 (1.2-2.2); Alkaline Phosphatase 35 U/L (46-116); Anion Gap 7 (7-16); Aspartate Amino Transferase 21 U/L (0-34); BUN/Creatinine Ratio 23 Ratio (12-20); Bilirubin,Total 1.3 mg/dL (0.3-1.2); Blood Urea Nitrogen 18 mg/dL (9-23); Calcium 9.5 mg/dL (8.3-10.6); Carbon Dioxide 29.3 mMol/L (20.0-31.0); Chloride 96 mMol/L (98-107); Creatinine (Component) 0.8 mg/dL (0.6-1.3); Estimated Creatinine Clearance 45.2 mL/min (>60); Globulin 2.3 gm/dL (2.3-3.5); Glucose 99 mg/dL (74-106); Osmolality,Calculated 266 (275-295); Potassium 4.5 mMol/L (3.4-5.1); Sodium 132 mMol/L (136-145); Total Protein 5.7 gm/dL (5.7-8.2); Troponin I < 0.020 ng/mL (0.0-0.045); eGFR > 60 See Note
[2024-12-18 10:10] LABS: INR 1.3 (0.9-1.3); Partial Thromboplastin Time 36.5 Seconds (22.0-36.0)
--- NOTE | 2024-12-18 14:07 | PD.RESHP ---
Documentation for date of: 12/18/24 HPI History of Present Illness Chief complaint: Right leg hematoma History of present illness: 84-year-old female with past medical history of coronary artery disease status post x 4 stents placement, primary hypertension, polycythemia vera, chronic/persistent atrial fibrillation, CHF, chronic UTI on Levaquin, idiopathic pulmonary fibrosis on 2 to 3 L of home oxygen presenting to the ED on 12/18 with an episode of right, posterior lower extremity hematoma which surfaced 1 day ago. Patient is a resident at [facility] and states that yesterday while putting on her cotton pants she noticed that her right lower extremity, posterior side had a large hematoma starting from her calf up to her thigh. Patient denies having any trauma to the area or any recent falls but states that she was recently started on Levaquin for urinary tract infection and she attributes the new findings to that medication. Patient is also on Eliquis but she has been taking that for a long time for the atrial fibrillation. She also follows Dr. Fountain outpatient cardiology for management of her heart conditions. Patient also follows Dr. Crooks, seaming machine operator, for the polycythemia vera and she is on hydroxyurea for it. Patient denies having any concerning symptoms such as chest pain, abdominal pain, fever/chills, hematuria, melena/hematochezia or hematemesis. 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 Pertinent lab findings include WBC 5.7, hemoglobin 10.4 with MCV of 116, platelet 244, sodium 132, lactic acid 1.0, T. bili 1.3, AST 21, ALT 9, alk phosphatase 35, troponin within normal limits, BNP 377. Venous Doppler study showed negative for DVT and hip/pelvis x-ray shows moderate narrowing of the hip joints. Patient will be admitted for observation of the right lower extremity hematoma/possible cellulitis although less likely; moreover, will treat with IV antibiotics and warm compress. Exam Vital Signs Temp Pulse Resp BP Pulse Ox O2 Del Method O2 Flow Rate 97.5 F 76 14 138/57 H 97 Nasal Cannula 2 12/18/24 13:50 12/18/24 13:50 12/18/24 13:50 12/18/24 13:50 12/18/24 13:50 12/18/24 13:50 12/18/24 13:50 Narrative Exam Physical Exam: GENERAL: Awake, answering questions appropriately, appears stated age HEENT: NC/AT. Moist mucosa. PERRLA/EOMI. CARDIO: Heart RRR, no obvious murmurs, no JVD. PULM: No coughing or visible SOB but the patient is on 2 L nasal cannula. Lungs CTA B/L. GI: Abdomen soft, NT/ND, +BS. SKIN/MSK/EXT: Extensive posterior, right lower extremity ecchymosis from the medial thigh to the medial calf. No wounds/rashes/edema/amputations noted. +Pedal pulses present B/L. NEURO: Oriented x3, Moves extremities x4, no focal neurologic deficits noted. Results: Labs 12/19/24 06:00 12/19/24 06:00 Labs: Short CBC 12/18/24 Range/Units 09:05 WBC 5.7 (3.6-11.0) Thou/mm3 Hgb 10.4 L (12.0-16.0) g/dL Hct 30.4 L (36.0-46.0) % Plt Count 244 D (140-440) Thou/mm3 BMP 12/18/24 09:05 Sodium 132 L Potassium 4.5 Chloride 96 L Carbon Dioxide 29.3 BUN 18 Creatinine 0.8 Glucose 99 Calcium 9.5 Cardiac Enzymes 12/18/24 Range/Units 09:05 Troponin I < 0.020 (0.0-0.045) ng/mL Liver Function 12/18/24 Range/Units 09:05 Total Bilirubin 1.3 H (0.3-1.2) mg/dL AST 21 (0-34) U/L ALT 9 L (10-49) U/L Alkaline Phosphatase 35 L (46-116) U/L Albumin 3.4 (3.4-4.8) gm/dL ABG Interpretation ABG results: 12/18/24 09:05 VBG pH 7.40 VBG pCO2 51 VBG pO2 28 VBG Base Excess 6 H Quality Measures Quality Measures none Advance care planning discussed with:: patient and child Medications Home Medications and Allergies Home Medications ?Medication ?Instructions ?Recorded ?Confirmed ?Type allopurinol 300 mg tablet 300 mg PO QDAY 10/11/18 12/18/24 History alpha lipoic acid 600 mg capsule 600 mg PO QDAY 01/14/23 12/18/24 History atorvastatin 40 mg tablet 40 mg PO QDAY 01/14/23 12/18/24 History benazepril 10 mg tablet 10 mg PO BID PRN hypertension 01/14/23 12/18/24 History carvedilol 12.5 mg tablet 12.5 mg PO BID 01/14/23 12/18/24 History cetirizine 10 mg tablet 10 mg PO QDAY 01/14/23 12/18/24 History cholecalciferol (vitamin D3) 125 5,000 unit PO QDAY 01/14/23 12/18/24 History mcg (5,000 unit) tablet (Vitamin D3) famotidine 40 mg tablet 40 mg PO QDAY 01/14/23 12/18/24 History folic acid 1 mg tablet 1 mg PO TID 01/14/23 12/18/24 History mirabegron 50 mg tablet,extended 50 mg PO QDAY 01/14/23 12/18/24 History release 24 hr (Myrbetriq) montelukast 10 mg tablet 10 mg PO QDAY 01/14/23 12/18/24 History omeprazole 40 mg capsule,delayed 40 mg PO QDAY 01/14/23 12/18/24 History release apixaban 2.5 mg tablet (Eliquis) 2.5 mg PO BID 01/15/23 12/18/24 History nitroglycerin 0.4 mg sublingual 0.4 mg buccal Q5M PRN Chest Pain 01/15/23 12/18/24 History tablet ondansetron HCl 4 mg tablet 4 mg PO QDAY PRN Nausea 01/15/23 12/18/24 History albuterol sulfate 90 mcg/actuation 1 inh inhalation BID 07/09/23 12/18/24 History aerosol inhaler bumetanide 1 mg tablet 1 mg PO QDAY 07/09/23 12/18/24 History guaifenesin 600 mg tablet,extended 600 mg PO BID 07/09/23 12/18/24 History release hydroxyurea 500 mg capsule 1,000 mg PO HS 07/09/23 12/18/24 History budesonide 160 mcg-glycopyr 9 2 inh inhalation BID 12/18/24 12/18/24 History mcg-formot 4.8 mcg/actuation HFA inhaler (Breztri Aerosphere) Allergies Allergy/AdvReac Type Severity Reaction Status Date / Time iodine Allergy Severe Swelling Verified 12/07/24 10:25 of Lip/Tongue/Throat shellfish derived Allergy Severe Swelling Verified 12/07/24 10:25 of Lip/Tongue/Throat Visit Medications Acetaminophen (Acetaminophen 325 Mg Tablet) 650 mg PO Q6H PRN PRN Reason: Pain 1-3 and/or Fever >100.1 Stop: 01/17/25 13:46 Heparin Sodium (Porcine) (Heparin Sod Inj 5000 Unit/Ml Vial) 5,000 unit SC Q12HR HEIKE Stop: 01/01/25 20:59 Ondansetron HCl (Ondansetron Inj 2 Mg/Ml Inj 2 Ml) 4 mg IV Q6H PRN; Protocol PRN Reason: NAUSEA OR VOMITING Stop: 01/17/25 13:46 Sennosides (Senna Tablet) 1 tab PO QDAY HEIKE; Protocol Stop: 01/18/25 08:59 Assessment & Plan Plan 84-year-old female with past medical history of coronary artery disease status post x 4 stents placement, primary hypertension, polycythemia vera, chronic/persistent atrial fibrillation, CHF, chronic UTI on Levaquin, idiopathic pulmonary fibrosis on 2 to 3 L of home oxygen presenting with an episode of right, posterior lower extremity hematoma which surfaced 1 day ago will be admitted for observation of the right lower extremity hematoma/possible cellulitis although less likely; moreover, will treat with IV antibiotics and warm compress. #Right lower extremity, posterior wound hematoma versus cellulitis Likely hematoma secondary to Eliquis use, trauma versus less likely tendon rupture secondary to Levaquin, cellulitis, lymphangitis Patient states that while putting on her pants yesterday she noticed that her right leg had a large hematoma; moreover, she denies any trauma or falls Patient was recently started on Levaquin for chronic UTIs Patient is able to ambulate using a walker at home and denies having any difficulties with ADLs WBC is within normal limits and the patient denies having any fever/chills at home Venous Doppler study is negative for any DVT Hip/pelvic x-ray is positive for some narrowing but no other concerning signs seen Plan: Started patient on broad-spectrum IV antibiotics, ceftriaxone and Doxy Warm compress Wound referral #Coronary artery disease, status post stent placement #Primary hypertension Patient has history of 4 stents placed in the past with Dr. Fountain Pending official med rec Plan: Will start home medications when appropriate #Polycythemia vera Patient follows with Dr. Crooks outpatient and is on hydroxyurea #Persistent atrial fibrillation Patient has chronic persistent atrial fibrillation on Eliquis; moreover currently in atrial fibrillation rate controlled, #Chronic UTI Patient recently started on Levaquin for chronic UTI; moreover, patient states that she has been having multiple UTIs for the past 2 years #Idiopathic pulmonary fibrosis Patient is on home oxygen, currently on oxygen saturating well in no acute respiratory distress Chronic medical conditions, not pertinent to the following presentation Plan: Will continue monitor for any acute changes Hospital Management: Lines: PIV Bowel: Senna Diet: Cardiac GI prophylaxis: Not needed DVT prophylaxis: Contraindicated at this point due to lower extremity hematoma Code: DNR, patient states to refer to POLST form Patient seen and assessed with attending Dr. Iraheta and senior resident Dr. Adilson Stoner, PGY-1 Attending Provider Attestation/Addendum Marian Tomlin, , attest that I was physically present for the woods portions of the service and evaluated the patient with the resident and I reviewed and discussed the case with the resident and agree with the resident's findings and plans of care as documented above Patient 84-year-old female with past medical history of CAD status post stent placement, hypertension, polycythemia vera, A-fib on chronic anticoagulation, CHF, recurrent UTI and idiopathic pulmonary fibrosis who uses 2 to 3 L on home O2 at home who was brought to the ED for erythema and edema of her right lower extremity. Patient denies any trauma or recent falls. She also states that she noted the lesion when she went to the bathroom. Her pants were loose and cotton. She does not feel that was the cause of her lesion. Patient reports pain in the area, but has b/l LE neuropathy. There is erythema in the medial aspect of the right thigh extending from mid thigh to mid lozoya, going to the posterior aspect of the LE. Patient has some edema in the region and tenderness to palpation, but no warmth. It appears to be a hematoma versus cellulitis. Will admit for observation and place warm compresses, elevate leg and start IV doxycycline and rocephin. If improvement is seen in AM, anticipate DC. Will hold eliquis for tonight and f/u H/H. Patient denies any fevers or chills otherwise.
--- NOTE | 2024-12-18 14:23 | XR_ITS ---
Examination: Bilateral hips, AP pelvis, 5 views Technique: AP, lateral views both hips, AP pelvis, 5 views Exam date and time: December 18, 2024 1329 hours INDICATIONS: Right hip pain today FINDINGS: Moderate narrowing hip joints Moderate osteopenia No hip or pelvic fracture IMPRESSION: Moderate narrowing hip joints
[2024-12-18 14:55] LABS: Collection Type, Urine Catheter; Squamous Epithelial Cell,Urine 0 /hpf (0-5); WBC,Urine 0 /hpf (0-5)
[2024-12-18 15:05] LABS: Bilirubin,Urine Negative (Negative); Blood,Urine Negative (Negative); Clarity,Urine Clear (Clear/Hazy); Color,Urine Lt-Yellow (Lt Yel-Yel); Culture Indicated,Urine Not Indicated; Glucose, Urine Negative (Negative); Ketones,Urine Negative (Negative); Leukocyte Esterase,Urine Negative (Negative); Nitrite,Urine Negative (Negative); PH,Urine 6.5 (5.0-7.0); Protein,Urine Negative (Neg - Trace); RBC,Urine 1 /hpf (0-3); Specific Gravity,Urine 1.013 (1.001-1.035); Urobilinogen,Urine Negative mg/dL (0.0-1.0)
[2024-12-18] MEDS: cefTRIAXone/D5w 1gm IV premix 1 GM/50 ML BAG IV (15:19)
--- NOTE | 2024-12-18 17:55 | PC.NURSE ---
telephone report received from Fatuma ROBISON. all questions answered.
--- NOTE | 2024-12-18 18:12 | PC.NURSE ---
pt to room from ED accompanied by son. mild headache, medicated with tylenol. no acute signs of distress.
[2024-12-18] MEDS: ACETAMINOPHEN 325 MG TABLET 650 MG PO (18:28)
[2024-12-18] MEDS: DOXYCYCLINE 100 MG TABLET PO (20:53)
[2024-12-18] MEDS: GABAPENTIN 100 MG CAPSULE PO (22:49)
[2024-12-19] VITALS (7 sets, daily range): BP systolic 124–181; BP diastolic 68–114; PULSE 72–97; RESP 18–21; TEMP 36.4–36.9; O2SAT 90–96
[2024-12-19 06:23] LABS: Basophils % (Auto) 0 % (0-2.5); Eosinophils % (Auto) 0 % (0-10); Hematocrit 32.6 % (36.0-46.0); Hemoglobin 11.1 g/dL (12.0-16.0); Immature Granulocytes % (Auto) 2 % (0-0); Immature Granulocytes Auto 0.15 Thou/mm3 (0.00-0.00); Lymphocytes # (Auto) 0.3 Thou/mm3 (1.0-4.8); Lymphocytes % (Auto) 4 % (10-50); Mean Corpuscular Hemoglobin 39.6 pg (25.0-35.0); Mean Corpuscular Volume 116 fL (80-100); Monocytes # (Auto) 0.2 Thou/mm3 (0.0-0.8); Monocytes % (Auto) 2 % (0-12); Neutrophils # (Auto) 7.1 Thou/mm3 (1.8-7.7); Neutrophils % (Auto) 91 % (37-80); Nucleated Red Blood Cell % 0 /100 WBC (0); Platelet Count 265 Thou/mm3 (140-440); RDW Standard Deviation 67.7 fL (36.4-46.3); White Blood Count 7.7 Thou/mm3 (3.6-11.0)
[2024-12-19 06:43] LABS: Alanine Aminotransferase 12 U/L (10-49); Albumin, Serum 3.5 gm/dL (3.4-4.8); Albumin/Globulin Ratio 1.5 (1.2-2.2); Alkaline Phosphatase 38 U/L (46-116); Anion Gap 5 (7-16); Aspartate Amino Transferase 22 U/L (0-34); BUN/Creatinine Ratio 18 Ratio (12-20); Bilirubin,Total 1.5 mg/dL (0.3-1.2); Blood Urea Nitrogen 14 mg/dL (9-23); Calcium 9.1 mg/dL (8.3-10.6); Calcium (Corrected) 9.5 mg/dL (8.5-10.1); Carbon Dioxide 28.6 mMol/L (20.0-31.0); Chloride 96 mMol/L (98-107); Creatinine (Component) 0.8 mg/dL (0.6-1.3); Estimated Creatinine Clearance 45.2 mL/min (>60); Globulin 2.4 gm/dL (2.3-3.5); Glucose 92 mg/dL (74-106); Osmolality,Calculated 261 (275-295); Potassium 4.7 mMol/L (3.4-5.1); Sodium 130 mMol/L (136-145); Total Protein 5.9 gm/dL (5.7-8.2); eGFR > 60 See Note
[2024-12-19] MEDS: carVEDILOL 12.5 MG TABLET PO (08:13)
[2024-12-19] MEDS: SENNA TABLET 1 TAB PO (08:14)
[2024-12-19] MEDS: cefTRIAXone/D5w 1gm IV premix 1 GM/50 ML BAG IV (08:14)
[2024-12-19] MEDS: DOXYCYCLINE 100 MG TABLET PO (08:14)
[2024-12-19] MEDS: BUMETANIDE 0.5 MG TABLET 1 MG PO (08:14)
[2024-12-19] MEDS: ONDANSETRON INJ 2 MG/ML INJ 2 ML 4 MG IV (08:14)
[2024-12-19] MEDS: MONTELUKAST SODIUM 10 MG TABLET PO (08:15)
--- NOTE | 2024-12-19 10:54 | XR_ITS ---
Examination: Ultrasound soft tissue extremity right thigh TECHNIQUE: Grayscale sonographic images soft tissue right thigh Exam date and time: December 19, 2024 1217 hours INDICATIONS: Redness swelling and pain medial right thigh extending to the medial calf note is beginning 3 days ago FINDINGS: Diffuse edema at the area of concern No soft tissue abscess IMPRESSION: No soft tissue abscess or hematoma
--- NOTE | 2024-12-19 13:42 | PD.RESPRO ---
Documentation for date of: 12/19/24 Exam Vital Signs Temp Pulse Resp BP Pulse Ox O2 Del Method O2 Flow Rate 97.6 F 80 21 H 124/68 96 Nasal Cannula 2 12/19/24 12:00 12/19/24 12:00 12/19/24 12:00 12/19/24 12:00 12/19/24 12:00 12/19/24 12:00 12/19/24 12:00 Objective Labs 12/19/24 06:00 12/19/24 06:00 Labs: Laboratory Results - last 24 hr 12/18/24 12/19/24 14:40 06:00 WBC 7.7 RBC 2.80 L Hgb 11.1 L Hct 32.6 L MCV 116 H MCH 39.6 H MCHC 34.0 RDW Std Deviation 67.7 H Plt Count 265 Neut % (Auto) 91 H Lymph % (Auto) 4 L [place] % (Auto) 2 Eos % (Auto) 0 Baso % (Auto) 0 Neut # (Auto) 7.1 Lymph # (Auto) 0.3 L [place] # (Auto) 0.2 Eos # (Auto) 0.0 Baso # (Auto) 0.0 Immature Gran # (Auto) 0.15 H Absolute Nucleated RBC 0.00 Immature Gran % 2 H Nucleated RBC % 0 Sodium 130 L Potassium 4.7 Chloride 96 L Carbon Dioxide 28.6 Anion Gap 5 L BUN 14 Creatinine 0.8 Estim Creat Clear Calc 45.2 L eGFR > 60 BUN/Creatinine Ratio 18 Glucose 92 Calculated Osmolality 261 L Calcium 9.1 Corrected Calcium 9.5 Total Bilirubin 1.5 H AST 22 ALT 12 Alkaline Phosphatase 38 L Total Protein 5.9 Albumin 3.5 Globulin 2.4 Albumin/Globulin Ratio 1.5 Ur Collection Type Catheter Urine Color Lt-Yellow Urine Clarity Clear Urine pH 6.5 Ur Specific [place] 1.013 Urine Protein Negative Urine Glucose (UA) Negative Urine Ketones Negative Urine Blood Negative Urine Nitrite Negative Urine Bilirubin Negative Urine Urobilinogen (Auto) Negative Ur Leukocyte Esterase Negative Urine RBC 1 Urine WBC 0 Ur Squamous Epith Cells 0 Urine Bacteria None Ur Culture Indicated? Not Indicated ABG Interpretation ABG results: 12/18/24 09:05 VBG pH 7.40 VBG pCO2 51 VBG pO2 28 VBG Base Excess 6 H Quality Measures Quality Measures none Assessment & Plan Assessment Current Active Medications: Generic Name Dose Route Start Last Admin Trade Name Freq PRN Reason Stop Dose Admin Acetaminophen 650 mg 12/18/24 13:47 12/18/24 18:28 Acetaminophen 325 Mg Tablet PO 01/17/25 13:46 650 mg Q6H PRN Administration Pain 1-3 and/or Fever >100.1 Bumetanide 1 mg 12/19/24 09:00 12/19/24 08:14 Bumetanide 0.5 Mg Tablet PO 01/18/25 08:59 1 mg QDAY HEIKE Administration Carvedilol 12.5 mg 12/19/24 09:00 12/19/24 08:13 Carvedilol 12.5 Mg Tablet PO 01/18/25 08:59 12.5 mg BID HEIKE Administration Doxycycline Hyclate 100 mg 12/18/24 21:00 12/19/24 08:14 Doxycycline 100 Mg Tablet PO 12/25/24 20:59 100 mg BID HEIKE Administration Ceftriaxone Sodium/Dextrose 1 gm in 50 mls @ 100 mls/hr 12/18/24 14:45 12/19/24 08:14 Rocephin/D5w 1gm Iv Premix IV 12/25/24 14:44 100 mls/hr QDAY HEIKE Administration Lisinopril 10 mg 12/19/24 07:57 Lisinopril 2.5 Mg Tablet PO 01/18/25 07:56 BID PRN HYPERTENSION SBP >145 Montelukast Sodium 10 mg 12/19/24 09:00 12/19/24 08:15 Montelukast Sodium 10 Mg Tablet PO 01/18/25 08:59 10 mg QDAY HEIKE Administration Ondansetron HCl 4 mg 12/18/24 13:47 12/19/24 08:14 Ondansetron Inj 2 Mg/Ml Inj 2 Ml IV 01/17/25 13:46 4 mg Q6H PRN Administration NAUSEA OR VOMITING Protocol Sennosides 1 tab 12/19/24 09:00 12/19/24 08:14 Senna Tablet PO 01/18/25 08:59 1 tab QDAY HEIKE Administration Protocol
--- NOTE | 2024-12-19 15:02 | ESDS_ITS ---
<Statement entered by Marian Iraheta DO - 12/20/24 08:57> I, Marian Iraheta DO, attest that I was physically present for the woods portions of the service and evaluated the patient with the resident and I reviewed and discussed the case with the resident and agree with the resident's findings and plans of care as documented above <Statement entered by Ariana Hansen MD - 12/20/24 08:09> Patient was seen and examined by me personally. I have reviewed the below documentation by the team resident and agree with its findings with any exceptions as below. Discharge plan was discussed with the attending, Dr. Iraheta. Ariana Hansen, PGY-2 Planned Discharge Date 12/19/24 DS: Providers Provider Date of admission: 12/18/24 13:47 Primary care physician: Burak Hebert MD Admitting Provider: Marian Iraheta DO Attending Provider on Admission: Marian Iraheta DO Consults: 12/18/24 13:49 Referral Wound Care Routine Comment: Warm compress on R leg hematoma Attending Provider on DC: Yong Stoner MD Discharging Provider: Yong Stoner MD DS: Diagnosis Problem List Completed Was Problem List Reviewed/Reconciled?: Yes Hospital Course Hospital Course Hospital course: 84-year-old female with past medical history of coronary artery disease status post stents x 4, primary hypertension, polycythemia vera, chronic persistent atrial fibrillation, CHF, chronic UTI on Levaquin, idiopathic pulmonary fibrosis on 2 to 3 L of home oxygen presented to the ED on 12/18 with episode of right posterior lower extremity hematoma versus cellulitis. In the ED, patient was hypertensive with a blood pressure 170/83, rest of the vitals were stable. Pertinent lab findings included hemoglobin 10.4 with MCV of 116, lactic acid 1.0, troponin within normal limits, BNP 377 and venous Doppler study was negative for any DVT along with hip pelvis x-ray which showed moderate narrowing of the hip joints. Patient was admitted for observation of the right lower extremity hematoma versus possible cellulitis and started on IV antibiotics and warm compression. Overnight the patient did not have any acute events and made significant improvement; moreover, region which was marked was not expanding and in fact was improving. Patient will be discharged from the hospital with an appointment with her PCP on 12/20 with the following strict instructions. Please complete antbiotic regimen for 5 days with cephalexin 500mg by mouth four times a day and doxycycline 100mg by mouth twice a day Please follow-up with wound care regarding the right lower extremity hematoma Use warm compress on the affected leg and keep leg elevated Continue taking all your home medications as prescribed Follow-up with your PCP within 1-2 weeks If your symptoms worsen or if you develop new chest pain, shortness of breath, difficulty ambulating or urinary/fecal incompetence - please come back to the ED immediately. Hospital Diagnosis: #Right lower extremity, posterior wound hematoma versus cellulitis #Coronary artery disease, status post stent placement #Primary hypertension #Polycythemia vera #Persistent atrial fibrillation #Chronic UTI #Idiopathic pulmonary fibrosis Yong Stoner, PGY-1 Status at Discharge Overall status at discharge: patient is progressing back to baseline Time Spent with Patient Time attestation: Total time spent providing and/or coordinating discharge services: 45 minutes Time spent: Greater than 30 minutes Exam Vital Signs Temp Pulse Resp BP Pulse Ox O2 Del Method O2 Flow Rate 97.6 F 80 21 H 124/68 96 Nasal Cannula 2 12/19/24 12:00 12/19/24 12:00 12/19/24 12:00 12/19/24 12:00 12/19/24 12:12/19/24 12:00 12/19/24 12:00 Narrative Exam Physical Exam: GENERAL: Awake, answering questions appropriately, appears stated age HEENT: NC/AT. Moist mucosa. PERRLA/EOMI. CARDIO: Heart RRR, no obvious murmurs, no JVD. PULM: No coughing or visible SOB but the patient is on 2 L nasal cannula. Lungs CTA B/L. GI: Abdomen soft, NT/ND, +BS. SKIN/MSK/EXT: Extensive posterior, right lower extremity ecchymosis from the medial thigh to the medial calf improving. No wounds/rashes/edema/amputations noted. +Pedal pulses present B/L. NEURO: Oriented x3, Moves extremities x4, no focal neurologic deficits noted. Discharge Plan Plan Patient Disposition: Home w/HOME HEALTH Patient condition on transfer: Stable Care Plan Goals: Please complete antbiotic regimen for 5 days with cephalexin 500mg by mouth four times a day and doxycycline 100mg by mouth twice a day Please follow-up with wound care regarding the right lower extremity hematoma Use warm compress on the affected leg and keep leg elevated Continue taking all your home medications as prescribed Follow-up with your PCP within 1-2 weeks If your symptoms worsen or if you develop new chest pain, shortness of breath, difficulty ambulating or urinary/fecal incompetence - please come back to the ED immediately. Prescriptions/Referrals Prescriptions/Med Rec: New doxycycline hyclate 100 mg Tablet 100 mg PO BID 5 Days Qty: 10 0RF cephalexin 500 mg capsule 500 mg PO QID 5 Days Qty: 20 0RF Continued allopurinol 300 mg Tablet 300 mg PO QDAY alpha lipoic acid 600 mg Capsule 600 mg PO QDAY omeprazole 40 mg capsule,delayed release(DR/EC) 40 mg PO QDAY atorvastatin 40 mg tablet 40 mg PO QDAY cetirizine 10 mg Tablet 10 mg PO QDAY famotidine 40 mg tablet 40 mg PO QDAY folic acid 1 mg tablet 1 mg PO TID montelukast 10 mg tablet 10 mg PO QDAY benazepril 10 mg tablet 10 mg PO BID PRN (Reason: hypertension) Rx Instructions: sbp >145 cholecalciferol (vitamin D3) [Vitamin D3] 125 mcg (5,000 unit) Tablet 5,000 unit PO QDAY mirabegron [Myrbetriq] 50 mg tablet extended release 24 hr 50 mg PO QDAY carvedilol 12.5 mg tablet 12.5 mg PO BID ondansetron HCl 4 mg tablet 4 mg PO QDAY PRN (Reason: Nausea) Patient Comments: TAKE 1 TABLET BY MOUTH EVERY DAY NEEDED FOR NAUSEA AND VOMITING FOR 15 DAYS nitroglycerin 0.4 mg tablet, sublingual 0.4 mg BUCCAL Q5M PRN (Reason: Chest Pain) Patient Comments: 1 TABLET SUBLINGUAL EVERY 5 MINUTES NEEDED CHEST PAIN MAXIMUM OF 3 DOSES 30 DAYS Eliquis 2.5 mg tablet 2.5 mg PO BID hydroxyurea 500 mg capsule 1,000 mg PO HS guaifenesin 600 mg Tablet Extended Release 600 mg PO BID bumetanide 1 mg tablet 1 mg PO QDAY albuterol sulfate 90 mcg/actuation Hfa Aerosol Inhaler 1 inh INHALATION BID Breztri Aerosphere 160-9-4.8 mcg/actuation HFA aerosol inhaler 2 inh inhalation BID Referrals: Burak Hebert MD [Primary Care Provider] - Doc - Wound Care,Generic [Physician] - Patient/Caregiver Discharge Instructions Education Materials: ED Contusion, Lower Extremity, ED Hematoma Print Language: [place] Stand Alone Forms: Mena Award Info., Patient Portal Info Letter, Work/Release Restrictions Discharge Order Discharge Orders: Discharge (Routine); Ordered 12/19/24 Ordered By: Yong Stoner Quality Discharge Quality Measures none (VTE prophylaxis encounter indicated as the patient had hematoma, SCDs were not appropriate nor were medications.)
--- NOTE | 2024-12-19 15:02 | PC.SS ---
SS met with patient regarding her d/c plan.? Pt is alert/oriented.? Pt was admitted for R Leg Hematoma.? Pt confirmed demographic and contact information is correct on facesheet.? Pt resides alone at [facility] but has a caregiver.? Pt ambulates using a walker.? Pt states she requires assistance sometimes with ADLs.? Pt staes she utilizes O2 at home and her son has portable O2 ready for transport.? SS provided verbal d/c options for d/c to home or SNF.? Pt refused SNF and her request is to return home upon dc.? Pt states her son can provide transport.? Pt named her son, Sammy Mccormack medical decision maker if he is unable.? Bedside nurse, Celestina is aware to contact patient's son after 5:30 to citrus picker pt.? Pt followed up with PCP 1 month ago. D/C plan:? Return home Next of Kin: Sammy Mccormack, son, phone# [phone] PCP:? Dr. Burak Hebert Address:? Correct on facesheet HH: No preference
--- NOTE | 2024-12-20 08:55 | PC.CC ---
Addendum entered by Phoebe Wing RN 12/20/24 10:48: Start of care date is 12/22/24. Addendum entered by Phoebe Wing RN 12/20/24 09:12: [facility] accepted the pt. Booked [facility]. Pending start of care date. Original Note: No preference of HH agency per SS notes. HH referral sent on [facility]. Awaiting responses. Pending Start of care date.
== END 2024-12-19 17:45 | disposition home health service (06) ==
LOC: SERX 08:20 → SERHOLD 13:54 → S3SX 12-19 07:34 → SERHOLD 12-19 09:22
PROVIDERS: Admitting Provider Internal Medicine; Emergency Provider Emergency Medicine; PCP Specialist; Visit Provider Internal Medicine
DX: S80.11XA Contusion of right lower leg, initial encounter (principal); I25.10 Atherosclerotic heart disease of native coronary artery without angina pectoris; D45 Polycythemia vera; I48.19 Other persistent atrial fibrillation; N39.0 Urinary tract infection, site not specified; J84.112 Idiopathic pulmonary fibrosis; I11.0 Hypertensive heart disease with heart failure; I50.9 Heart failure, unspecified
CPT/HCPCS: 36415; 73521; 76882; 80053; 81001; 82803; 83605; 83880; 84484; 85025; 85610; 85730; 87040; 93970; 96365; 99285; G0378; J0696; J2405; A9270

== ENCOUNTER 2025-02-10 15:09 | Inpatient (IN) | payer MEDICARE, SELFPAY ==
[2025-02-10] VITALS (11 sets, daily range): BP systolic 150–164; BP diastolic 72–84; PULSE 81–96; RESP 16–20; TEMP 36.5–36.8; O2SAT 84–100; BMI 21.6
--- NOTE | 2025-02-10 15:25 | XR_ITS ---
Examination: AP single view Technique one AP portable semiupright chest single view Date and time: February 10, 2025 1632 hours Comparison December 07, 2024 INDICATIONS: Chronic shortness of breath. FINDINGS: Moderate CHF Mild to moderate enlargement cardiac contour, pulmonary vascular congestion with perihilar edema Superimposed pneumonia at the right base Moderate bilateral pleural effusions 26 mm masslike area in the left midlung Prominent osteopenia IMPRESSION: Moderate CHF Significant pneumonia right base Recommend CT chest without contrast follow-up to exclude 26 mm pulmonary mass in the left upper lobe
--- NOTE | 2025-02-10 15:26 | PD.EDRME ---
Rapid Medical Screening Exam RME Arrival date/time: 02/10/25 15:09 Time Seen by Provider: 02/10/25 15:20 Vital signs: Vital Signs Temperature 98.0 F 02/10/25 15:10 Pulse Rate 96 02/10/25 15:10 Respiratory Rate 17 02/10/25 15:10 Blood Pressure 158/84 H 02/10/25 15:10 Pulse Oximetry (%) 100 02/10/25 15:10 84-year-old female with asthma , COPD , on 2 L of oxygen regularly who presents to the emergency room with concerns of low oxygen saturations at home. Patient states she has been short of breath for possibly several days, is currently on antibiotics for reason she does not and is not aware of. Patient possibly has a dementia limited history. She notes that her chest feels crowded and is unclear as to whether or not this is painful. On exam notes decreased breath sounds, by basilar Rales, trace bilateral lower extremity pitting edema. Focused workup and treatment has been initiated will be seen by additional provider.
--- NOTE | 2025-02-10 16:14 | PD.EDADULT ---
ED General RME/HPI General Chief complaint: Shortness of Breath/Dyspnea Stated complaint: SOB Time Seen by Provider: 02/10/25 15:20 Arrival date/time: 02/10/25 15:09 RME / HPI RME / HPI narrative: This patient is a 84-year-old female with past medical history of CAD post stents, hypertension, polycythemia vera, A-fib, CHF, chronic UTIs, pulmonary fibrosis on 4 L of oxygen was brought in by EMS with trouble breathing from past couple of weeks associated with lower extremity swelling. EMS stated that patient was recently diagnosed with right base pneumonia and was started on cefuroxime 500 mg twice daily which she was taking by her primary care doctor. She also started having new cough without phlegm. She was given albuterol breathing treatment x 3 and was placed on 6 L oxygen as she was desaturating as low as 70% and started improving to 84% to 90%. While assessment with the patient she reported that she had been having trouble breathing and uses 3-4 pillows to sleep at night and also had associated chest tightness rated as 3/10. She also endorsed to have cough without expectoration. She denied any fever chills. She endorsed pain in the epigastrium rated as 4/10 nonradiating related with a food intake associated with loose stools without blood from last 5 days. She also endorsed some nausea. She follows up Dr. Silva her PCP as outpatient. No burning in the urine was reported. Patients' son reported that she is still taking hydroxyurea for Polycythemia vera. PMH: As above PSH: Hysterectomy, cholecystectomy SH: Denies smoking, drinking alcohol or illicit drug use. Allergies: Allergic to shellfish causes angioedema Home medications: Allopurinol, omeprazole, atorvastatin, famotidine, montelukast, benazepril, mirabegron, Eliquis 2.5 twice daily, Bumex 1 mg once a day Differentials included shortness of breath related to fluid overload related to heart failure and pulmonary fibrosis and ?pneumonia or pleural effusion, diarrhea related to medication/viral, GERD Vitals showed blood pressure 158/84, pulse 96, respiratory rate 17. Patient was afebrile and saturating well on 6 L nasal cannula. Patient was given IV Lasix 40 mg x 1.CBC, CMP, troponin I and chest x-ray 2 view were ordered. Will follow-up with results. 16:53 CBC showed leukocytosis white count 15.1, macrocytic anemia hemoglobin 11.2. MCV 110. Thrombocytosis platelet count 545 chemistry panel is pending. Chest x-ray is significant for right-sided pleural effusion. 17:09 patient was given dose of Rocephin and doxycycline x 1 due to elevated white count and pneumonia seen on the left side with right-sided pleural effusion. She would need thoracentesis for Rt side Pleural effusion. admitted under care of hospitalist team. She was also found to have elevated troponin I 0.052. CHEM panel showed sodium 133, potassium 4.2, chloride 97, bicarbonate 28.4. Kidney functions showed BUN 25 and creatinine 0.9. Blood glucose 112. Total bilirubin 1.4. EKG showed A-fib with heart rate 88 with QTc 436. Left anterior fascicular block. 17:12 Discussed case with hospitalist team regarding admission. Discussed patient's ED course, exam findings, labs and radiology results. Hospitalist team agreed to accept the patient for admission. MD complaint: Trouble breathing with lower extremity swelling Onset (ago): week(s) (2-3) Radiation: non-radiation Severity: mild Severity scale (1-10): 5 Quality: aching Consistency: constant Relieving factors: none Exacerbating factors: eating Associated symptoms: chest pain, cough, nausea/vomiting, shortness of breath and other (Epigastric pain and loose stool) Treatments prior to arrival: other (Breathing treatments with albuterol x 3 and oxygen) Related Data Home Medications ?Medication ?Instructions ?Recorded ?Confirmed allopurinol 300 mg tablet 300 mg PO QDAY 10/11/18 02/10/25 alpha lipoic acid 600 mg capsule 600 mg PO QDAY 01/14/23 02/10/25 benazepril 10 mg tablet 10 mg PO BID PRN hypertension 01/14/23 02/11/25 carvedilol 12.5 mg tablet 12.5 mg PO BID 01/14/23 02/10/25 cetirizine 10 mg tablet 10 mg PO QDAY 01/14/23 02/10/25 cholecalciferol (vitamin D3) 125 5,000 unit PO QDAY 01/14/23 02/10/25 mcg (5,000 unit) tablet (Vitamin D3) folic acid 1 mg tablet 1 mg PO TID 01/14/23 02/10/25 mirabegron 50 mg tablet,extended 50 mg PO QDAY 01/14/23 02/10/25 release 24 hr (Myrbetriq) montelukast 10 mg tablet 10 mg PO QDAY 01/14/23 02/10/25 omeprazole 40 mg capsule,delayed 40 mg PO QDAY 01/14/23 02/10/25 release apixaban 2.5 mg tablet (Eliquis) 2.5 mg PO BID 01/15/23 02/10/25 nitroglycerin 0.4 mg sublingual 0.4 mg buccal Q5M PRN Chest Pain 01/15/23 02/11/25 tablet albuterol sulfate 90 mcg/actuation 1 inh inhalation BID 07/09/23 02/10/25 aerosol inhaler bumetanide 1 mg tablet 1 mg PO QDAY 07/09/23 02/10/25 guaifenesin 600 mg tablet,extended 600 mg PO BID 07/09/23 02/10/25 release hydroxyurea 500 mg capsule 1,000 mg PO HS 07/09/23 02/10/25 budesonide 160 mcg-glycopyr 9 2 inh inhalation BID 12/18/24 02/11/25 mcg-formot 4.8 mcg/actuation HFA inhaler (Breztri Aerosphere) Allergies Allergy/AdvReac Type Severity Reaction Status Date / Time iodine Allergy Severe Swelling Verified 02/10/25 15:35 of Lip/Tongue/Throat shellfish derived Allergy Severe Swelling Verified 02/10/25 15:35 of Lip/Tongue/Throat Review of Systems Review of Systems Systems Reviewed: All systems reviewed, normal except as documented Past Medical History Past Medical History NEUROLOGIC: Positive Neurological Disorders, Cerebrovascular Accident, Transient Ischemic Attacks (TIA) and Peripheral Neuropathy; Negative Head Trauma CARDIAC: Positive Cardiac Arrhythmia, Atrial Fibrillation, Coronary Artery Disease, Edema, Deep Vein Thrombosis and Hypertension RESPIRATORY: Positive Asthma, Bronchitis and Pulmonary Fibrosis GASTROINTESTINAL: Positive Gastrointestinal Disorders, Gall Bladder Disease (removed), Gastrointestinal Bleed, Ulcer, Hiatal Hernia and Gastroesophageal Reflux Disease GENITOURINARY: Positive Genitourinary Disorders and Kidney Stones MUSCULOSKELETAL: Positive Musculoskeletal Disorders, Arthritis and Fibromyalgia ENT: Positive Cataracts and Deafness (MENTASTA); Negative Glaucoma, Blind, Retinal Detachment, Macular Degeneration, Ear Infection, Head Trauma or Eye Prosthesis ENDOCRINE: Negative Endocrine Disorders, Diabetes Mellitus Type 1, Diabetes Mellitus Type 2, Hypoglycemia, Providence's Syndrome, Sussex's Disease, Hyperthyroidism, Hypothyroidism, Parathyroid Disease, Pituitary Disease, Systemic Lupus Erythematosus, Syndrome of Inappropriate Antidiuretic Hormone (SIADH), Adrenal Disease or Graves' Disease HEMATOLOGIC: Positive Blood Disorders and Clotting Problems; Negative Anemia, Leukemia, Hemophilia, Thalassemia or Sickle Cell Disease OTHER HISTORY: Positive Autoimmune Disease, Falls, Chemotherapy, Chicken Pox and Cancer Family History FAMILY HISTORY: Positive Family Respiratory Disorders, Family Cardiac Disorders, Family Gastrointestinal Problems, Family Cancer and Family Surgery; Negative Family Neurologic Problems, Family Psychiatric Problems or Family Anesthesia Reaction Surgical History SURGICAL: Positive Coronary Stent (4 total) and Hysterectomy; Negative Cardiac Surgery, Open Heart Surgery, Coronary Artery Bypass Graft, Valve Replacement, Vascular Surgery, Cardiac Catheterization, Pacemaker, Angiogram, Auto Implanted Cardiovert Defib, Carotid Endarterectomy, Endocrine Surgery, Thyroidectomy, Ear Surgery, Tympanostomy Tube, Eye Surgery, Nose Surgery, Oral Surgery, Tonsillectomy, Adenoidectomy, Cochlear Implant, Corneal Transplant, Throat Surgery, Abdominal Surgery, Tracheostomy, Gastric Bypass Surgery, Gastrostomy, Bowel Surgery, Nephrectomy, Transurethral Resection, Joint Replacement, Amputation, Open Reduction Internal Fixation, Arthroscopy, Neurologic Surgery, Brain Shunt, Mastectomy, Lumpectomy, Tubal Ligation, Section or Vasectomy Social History SMOKING STATUS: Never smoker SUBSTANCE USE: does not use ALCOHOL: Never ED Exam Narrative Physical exam: GENERAL APPEARANCE: AxOx4, generally well-appearing female in mild distress due to shortness of breath. Saturating well on 6 L NC. HEENT: NC, AT. MMM. EOMI, clear conjunctiva, oropharynx clear. JVD NECK: Supple without lymphadenopathy. No stiffness or restricted ROM. HEART: Irregular rate and irregular rhythm, normal S1/S2, Holosystolic murmur heard on apex LUNGS: Dec BS on ausc on Rt side of Lungs. Patient was wheezing before breathing treatments. ABDOMEN: Soft, mild epigastric tenderness, nondistended with good bowel sounds heard. BACK: No CVAT, no obvious deformity. EXTREMITIES: Bilateral lower extremity edema 3+ pitting in nature up to knees with chronic venous changes NEUROLOGICAL: Grossly nonfocal. Alert and oriented, moving all 4 extremities. CN not formally tested but appear grossly intact. Skin: Warm and dry without any rash. Psych: Appropriate mood and affect Course Course Course Narrative: This patient is a 84-year-old female with past medical history of CAD post stents, hypertension, polycythemia vera, A-fib, CHF, chronic UTIs, pulmonary fibrosis on 4 L of oxygen was brought in by EMS with trouble breathing from past couple of weeks associated with lower extremity swelling. EMS stated that patient was recently diagnosed with right base pneumonia and was started on cefuroxime 500 mg twice daily which she was taking by her primary care doctor. She also started having new cough without phlegm. She was given albuterol breathing treatment x 3 and was placed on 6 L oxygen as she was desaturating as low as 70% and started improving to 84% to 90%. While assessment with the patient she reported that she had been having trouble breathing and uses 3-4 pillows to sleep at night and also had associated chest tightness rated as 3/10. She also endorsed to have cough without expectoration. She denied any fever chills. She endorsed pain in the epigastrium rated as 4/10 nonradiating related with a food intake associated with loose stools without blood from last 5 days. She also endorsed some nausea. She follows up Dr. Silva as outpatient. No burning in the urine was reported. Differentials included shortness of breath related to fluid overload related to heart failure and pulmonary fibrosis and pneumonia or Pleural effusion , diarrhea related to medication/viral, GERD, Hypertensive emergency, Elevated Trop I Vitals showed blood pressure 158/84, pulse 96, respiratory rate 17. Patient was afebrile and saturating well on 6 L nasal cannula. Patient was given IV Lasix 40 mg x 1.CBC, CMP, troponin I and chest x-ray 2 view were ordered. Will follow-up with results. 16:53 CBC showed leukocytosis white count 15.1, macrocytic anemia hemoglobin 11.2. MCV 110. Thrombocytosis platelet count 545 chemistry panel is pending. Chest x-ray is significant for right-sided pleural effusion. 17:09 patient was given dose of Rocephin and doxycycline x 1 due to elevated white count and pneumonia seen on the left side with right-sided pleural effusion. She would need thoracentesis for Rt side Pleural effusion. admitted under care of hospitalist team. She was also found to have elevated troponin I 0.052. CHEM panel showed sodium 133, potassium 4.2, chloride 97, bicarbonate 28.4. Kidney functions showed BUN 25 and creatinine 0.9. Blood glucose 112. Total bilirubin 1.4. EKG showed A-fib with heart rate 88 with QTc 436. Left anterior fascicular block. 17:12 Discussed case with hospitalist team regarding admission. Discussed patient's ED course, exam findings, labs and radiology results. Hospitalist team agreed to accept the patient for admission. Quality Measures none Orders Category Date Time Status EKG (ED ONLY) *Do not use* NOW Care 02/10/25 16:27 Completed EKG (ED Only) Stat Exams 02/10/25 16:26 Draft XR chest 1V Stat Exams 02/10/25 15:25 Completed CBC Stat Lab 02/10/25 16:15 Completed CMP [Comprehensive Metabolic Panel] Stat Lab 02/10/25 16:15 Completed Troponin I Stat Lab 02/10/25 16:15 Completed Doxycycline [Vibramycin] Med 02/10/25 17:06 Discontinued 100 mg PO X1 ONE Furosemide Inj [Lasix Inj] Med 02/10/25 15:24 Discontinued 40 mg IVP X1 ONE cefTRIAXone/D5w 1gm IV premix [Rocephin/D5w 1gm IV Med 02/10/25 17:06 Discontinued premix] 1 gm in 50 ml IV X1 Vital Signs Vital signs: Vital Signs Temperature 98.0 F 02/10/25 15:10 Pulse Rate 96 02/10/25 15:10 Respiratory Rate 17 02/10/25 15:10 Blood Pressure 158/84 H 02/10/25 15:10 Pulse Oximetry (%) 100 02/10/25 15:10 Discharge Plan Plan Patient Disposition: Admit Acute Care w/in Hospital Problem List Clinical Impression: Shortness of breath, Pleural effusion on right, Community acquired pneumonia MDM Narrative MDM hospital course (for use when minimal MDM required): This patient is a 84-year-old female with past medical history of CAD post stents, hypertension, polycythemia vera, A-fib, CHF, chronic UTIs, pulmonary fibrosis on 4 L of oxygen was brought in by EMS with trouble breathing from past couple of weeks associated with lower extremity swelling. EMS stated that patient was recently diagnosed with right base pneumonia and was started on cefuroxime 500 mg twice daily which she was taking by her primary care doctor. She also started having new cough without phlegm. She was given albuterol breathing treatment x 3 and was placed on 6 L oxygen as she was desaturating as low as 70% and started improving to 84% to 90%. While assessment with the patient she reported that she had been having trouble breathing and uses 3-4 pillows to sleep at night and also had associated chest tightness rated as 3/10. She also endorsed to have cough without expectoration. She denied any fever chills. She endorsed pain in the epigastrium rated as 4/10 nonradiating related with a food intake associated with loose stools without blood from last 5 days. She also endorsed some nausea. She follows up Dr. Silva as outpatient. No burning in the urine was reported. Differentials included shortness of breath related to fluid overload related to heart failure and pulmonary fibrosis and pneumonia or pleural effusion , diarrhea related to medication/viral, GERD,Hypertensive emergency, Elevated Trop I Vitals showed blood pressure 158/84, pulse 96, respiratory rate 17. Patient was afebrile and saturating well on 6 L nasal cannula. Patient was given IV Lasix 40 mg x 1.CBC, CMP, troponin I and chest x-ray 2 view were ordered. Will follow-up with results. 16:53 CBC showed leukocytosis white count 15.1, macrocytic anemia hemoglobin 11.2. MCV 110. Thrombocytosis platelet count 545 chemistry panel is pending. Chest x-ray is significant for right-sided pleural effusion. 17:09 patient was given dose of Rocephin and doxycycline x 1 due to elevated white count and pneumonia seen on the left side with right-sided pleural effusion. She would need thoracentesis for Rt side Pleural effusion. admitted under care of hospitalist team. She was also found to have elevated troponin I 0.052. CHEM panel showed sodium 133, potassium 4.2, chloride 97, bicarbonate 28.4. Kidney functions showed BUN 25 and creatinine 0.9. Blood glucose 112. Total bilirubin 1.4. EKG showed A-fib with heart rate 88 with QTc 436. Left anterior fascicular block. 17:12 Discussed case with hospitalist team regarding admission. Discussed patient's ED course, exam findings, labs and radiology results. Hospitalist team agreed to accept the patient for admission. Imaging Imaging Interpretation(s): Chest x-ray significant for right-sided pleural effusion. Medication Administration(s) Medication Administration History Acetaminophen (Acetaminophen 325 Mg Tablet) 650 mg PO Q6H PRN PRN Reason: PAIN OR FEVER > 100.4 Stop: 03/12/25 17:58 Last Admin: 02/11/25 21:27 Dose: 650 mg Documented By: JULEE Albuterol/Ipratropium (Albuterol/Ipratropium (Duoneb) Rt Luciana 3 Ml Nebu) 3 ml INH Q4HRRT PRN PRN Reason: shortness of breath, wheezing Stop: 03/12/25 18:59 Allopurinol (Allopurinol 100 Mg Tablet) 300 mg PO QDAY HEIKE Stop: 03/13/25 08:59 Last Admin: 02/11/25 08:36 Dose: 300 mg Documented By: ROXI Apixaban (Apixaban 2.5 Mg Tablet) 2.5 mg PO BID HEIKE Stop: 03/12/25 20:59 Last Admin: 02/11/25 20:35 Dose: 2.5 mg Documented By: Admin: 02/11/25 08:34 Dose: 2.5 mg Documented By: Admin: 02/10/25 21:13 Dose: 2.5 mg Documented By: JOSEPH Bumetanide (Bumetanide Inj 0.25 Mg/Ml Vial 4 Ml) 1 mg IVP BID HEIKE Stop: 03/12/25 20:59 Last Admin: 02/11/25 20:35 Dose: 1 mg Documented By: Admin: 02/11/25 08:37 Dose: 1 mg Documented By: Admin: 02/10/25 21:13 Dose: 1 mg Documented By: JOSEPH Folic Acid (Folic Acid 1 Mg Tablet) 1 mg PO TID HEIKE Stop: 03/12/25 21:59 Last Admin: 02/12/25 05:24 Dose: 1 mg Documented By: Admin: 02/11/25 20:47 Dose: 1 mg Documented By: Admin: 02/11/25 14:30 Dose: 1 mg Documented By: Admin: 02/11/25 05:16 Dose: 1 mg Documented By: Admin: 02/10/25 21:13 Dose: 1 mg Documented By: JOSEPH Guaifenesin (Guaifenesin Er 600 Mg Tabcr) 600 mg PO BID HEIKE Stop: 03/12/25 20:59 Last Admin: 02/11/25 20:35 Dose: 600 mg Documented By: Admin: 02/11/25 08:34 Dose: 600 mg Documented By: Admin: 02/10/25 21:14 Dose: 600 mg Documented By: JOSEPH Heparin Sodium (Porcine) (Heparin Sod Inj 5000 Unit/Ml Vial) 5,000 unit SC BID HEIKE Stop: 02/24/25 20:59 Last Admin: 02/11/25 20:35 Dose: 5,000 unit Documented By: JULEE Co-signed By: VENUS Admin: 02/11/25 08:43 Dose: 5,000 unit Documented By: ROXI Co-signed By: STERLING Admin: 02/10/25 21:15 Dose: 5,000 unit Documented By: JOSEPH Co-signed By: ADITYA Hydroxyurea (Hydroxyurea 500 Mg Capsule) 1,000 mg PO HEIKE Stop: 03/12/25 20:59 Last Admin: 02/11/25 21:18 Dose: 1,000 mg Documented By: Admin: 02/10/25 21:15 Dose: 1,000 mg Documented By: JOSEPH Azithromycin 500 mg/ Sodium (Chloride) 250 mls @ 250 mls/hr IV QDAY@2100 HEIKE Stop: 02/18/25 20:59 Last Admin: 02/11/25 20:33 Dose: 250 mls/hr Documented By: JULEE Ceftriaxone Sodium/Dextrose (Rocephin/D5w 1gm Iv Premix) 1 gm in 50 mls @ 100 mls/hr IV QDAY@1400 HEIKE Stop: 02/18/25 08:59 Last Admin: 02/11/25 16:38 Dose: Not Given Documented By: STERLING Non-Admin Reason: initial dose ended at 1155 too close in time Infusion: 02/11/25 16:38 Dose: Infused Documented By: Admin: 02/11/25 08:50 Dose: 100 mls/hr Documented By: ROXI Comments: Medication given early as a computer downtime today. 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 Magnesium Sulfate (Magnesium Sulfate Ivpb) 4 gm in 50 mls @ 12.5 mls/hr IV X1 ONE Stop: 02/12/25 11:42 Montelukast Sodium (Montelukast Sodium 10 Mg Tablet) 10 mg PO HS HEIKE Stop: 03/13/25 20:59 Last Admin: 02/11/25 20:35 Dose: 10 mg Documented By: JULEE Home Medication- Please Speak With Patient Caregiver To Have Rx Brought To [facility] 600 mg PO QDAY [facility] Stop: 03/13/25 08:59 Last Admin: 02/11/25 08:37 Dose: Not Given Documented By: ROXI Non-Admin Reason: Medication Not Available Ondansetron HCl (Ondansetron Inj 2 Mg/Ml Inj 2 Ml) 4 mg IV Q6H PRN; Protocol PRN Reason: NAUSEA OR VOMITING Stop: 03/12/25 17:58 Pantoprazole Sodium (Pantoprazole 40 Mg Tablet) 40 mg PO QDAY [facility]1983 Stop: 03/13/25 08:59 Last Admin: 02/11/25 08:35 Dose: 40 mg Documented By: ROXI Vitamin D (Cholecalciferol (Vitamin D3) 1,000 Iu Tablet) 5,000 iu PO QDAY [facility], [facility]1983 Stop: 03/13/25 08:59 Last Admin: 02/11/25 08:34 Dose: 5,000 iu Documented By: ROXI Discontinued Medications Albuterol (Albuterol Inh 8 Gm) 1 puff INH BID PRN PRN Reason: SHORTNESS OF BREATH Stop: 03/12/25 20:59 Doxycycline Hyclate (Doxycycline 100 Mg Tablet) 100 mg PO X1 ONE Stop: 02/10/25 17:07 Last Admin: 02/10/25 17:25 Dose: 100 mg Documented By: ATA Furosemide (Furosemide Inj 10 Mg/Ml 4ml Vial) 40 mg IVP X1 ONE Stop: 02/10/25 15:25 Last Admin: 02/10/25 16:28 Dose: 40 mg Documented By: ATA Ceftriaxone Sodium/Dextrose (Rocephin/D5w 1gm Iv Premix) 1 gm in 50 mls @ 100 mls/hr IV X1 ONE Stop: 02/10/25 17:35 Last Infusion: 02/10/25 17:54 Dose: Infused Documented By: [facility] Admin: 02/10/25 17:27 Dose: 100 mls/hr Documented By: ATA Ceftriaxone Sodium/Dextrose (Rocephin/D5w 1gm Iv Premix) 1 gm in 50 mls @ 100 mls/hr IV QDAY@1400 [facility] Stop: 02/18/25 13:59 Azithromycin 500 mg/ Sodium (Chloride) 250 mls @ 250 mls/hr IV X1 ONE Stop: 02/10/25 19:14 Last Infusion: 02/10/25 20:00 Dose: Infused Documented By: Admin: 02/10/25 18:41 Dose: 250 mls/hr Documented By: SM Azithromycin 500 mg/ Sodium (Chloride) 250 mls @ 250 mls/hr IV X1 ONE Stop: 02/11/25 09:59 Magnesium Sulfate (Magnesium Sulfate Ivpb) 4 gm in 50 mls @ 12.5 mls/hr IV X1 ONE Stop: 02/11/25 11:54 Last Infusion: 02/11/25 16:41 Dose: Infused Documented By: Admin: 02/11/25 08:53 Dose: 12.5 mls/hr Documented By: WB Potassium Chloride (Potassium Chloride 20 Meq Tabcr) 20 meq PO X1 ONE Stop: 02/11/25 07:56 Last Admin: 02/11/25 08:35 Dose: 20 meq Documented By: WB Diagnosis Diagnoses ruled out and/or further discussions: 17:09 patient was given dose of Rocephin and doxycycline x 1 due to elevated white count and pneumonia seen on the left side with right-sided pleural effusion. She would need thoracentesis for Rt side Pleural effusion. admitted under care of hospitalist team.
--- NOTE | 2025-02-10 16:26 | EKG_ITS ---
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: : [id number] Requested By: Mele Meyer Order Number: [id number] Reading MD: Mele eMyer Measurements Intervals [place] Rate: 88 P: VT: QRS: -65 QRSD: 103 T: 118 QT: 391 QTc: 474 Interpretive Statements ATRIAL FIBRILLATION PATTERN CONSISTENT WITH PULMONARY DISEASE LEFT ANTERIOR FASCICULAR BLOCK [QRS AXIS <= -45, QR IN I, RS IN II] NONSPECIFIC ST & T-WAVE ABNORMALITY Compared to ECG 12/07/2024 11:10:15 Left anterior fascicular block now present T-wave abnormality now present Atrial flutter no longer present Left-axis deviation no longer present Myocardial infarct finding no longer present /store/[id number]
[2025-02-10] MEDS: FUROSEMIDE INJ 10 MG/ML 4ML VIAL 40 MG IVP (16:28)
[2025-02-10 16:32] LABS: Basophils # (Auto) 0.1 Thou/mm3 (0.0-0.2); Basophils % (Auto) 0 % (0-2.5); Eosinophils # (Auto) 0.1 Thou/mm3 (0.0-0.5); Eosinophils % (Auto) 1 % (0-10); Hematocrit 32.4 % (36.0-46.0); Hemoglobin 11.2 g/dL (12.0-16.0); Immature Granulocytes % (Auto) 2 % (0-0); Lymphocytes # (Auto) 0.5 Thou/mm3 (1.0-4.8); Lymphocytes % (Auto) 4 % (10-50); Mean Corpuscular HGB Conc 34.6 g/dl (31.0-37.0); Mean Corpuscular Hemoglobin 37.8 pg (25.0-35.0); Mean Corpuscular Volume 110 fL (80-100); Monocytes # (Auto) 0.3 Thou/mm3 (0.0-0.8); Monocytes % (Auto) 2 % (0-12); Neutrophils # (Auto) 13.8 Thou/mm3 (1.8-7.7); Neutrophils % (Auto) 92 % (37-80); Nucleated Red Blood Cell # 0.04 Thou/mm3 (0.00-0.00); Nucleated Red Blood Cell % 0 /100 WBC (0); Platelet Count 545 Thou/mm3 (140-440); RDW Standard Deviation 62.8 fL (36.4-46.3); Red Blood Count 2.96 Miln/mm3 (4.00-5.20); White Blood Count 15.1 Thou/mm3 (3.6-11.0)
[2025-02-10 16:57] LABS: Albumin, Serum 3.8 gm/dL (3.4-4.8); Albumin/Globulin Ratio 1.4 (1.2-2.2); Alkaline Phosphatase 42 U/L (46-116); Anion Gap 8 (7-16); Aspartate Amino Transferase 21 U/L (0-34); BUN/Creatinine Ratio 28 Ratio (12-20); Bilirubin,Total 1.4 mg/dL (0.3-1.2); Blood Urea Nitrogen 25 mg/dL (9-23); Calcium 8.6 mg/dL (8.3-10.6); Calcium (Corrected) 8.8 mg/dL (8.5-10.1); Carbon Dioxide 28.4 mMol/L (20.0-31.0); Chloride 97 mMol/L (98-107); Creatinine (Component) 0.9 mg/dL (0.6-1.3); Estimated Creatinine Clearance 41.9 mL/min (>60); Globulin 2.7 gm/dL (2.3-3.5); Glucose 112 mg/dL (74-106); Osmolality,Calculated 271 (275-295); Potassium 4.2 mMol/L (3.4-5.1); Sodium 133 mMol/L (136-145); Total Protein 6.5 gm/dL (5.7-8.2); eGFR > 60 See Note
[2025-02-10 16:58] LABS: Alanine Aminotransferase 10 U/L (10-49)
[2025-02-10 17:07] LABS: Troponin I 0.052 ng/mL (0.0-0.045)
[2025-02-10] MEDS: DOXYCYCLINE 100 MG TABLET PO (17:25)
[2025-02-10] MEDS: cefTRIAXone/D5w 1gm IV premix 1 GM/50 ML BAG IV (17:27)
--- NOTE | 2025-02-10 18:05 | ECHO_ITS ---
Transthoracic Echo Report Ht (in): 65 Wt (lb): 130 Exam Location: Echo Lab Status: Emergency Hose Inspector: Tarsha Hampton Indications: Procedure Performed: BP: / HR: Technical Quality: Technically difficult study MEASUREMENTS (Male / Female) Normal Values 2D ECHO LV Diastolic Diameter PLAX 3.7 cm 4.2 - 5.9 / 3.9 - 5.3 cm LV Systolic Diameter PLAX 2.7 cm IVS Diastolic Thickness 1.2 cm 0.6 - 1.0 / 0.6 - 0.9 cm LVPW Diastolic Thickness 1.2 cm 0.6 - 1.0 / 0.6 - 0.9 cm LV Relative Wall Thickness 0.6 LVOT Diameter 1.7 cm Aortic Root Diameter 2.4 cm LA Systolic Diameter LX 3.8 cm 3.0 - 4.0 / 2.7 - 3.8 cm LA Volume Index 60.3 cm?/m? 16 - 28 cm?/m? DOPPLER AV Peak Velocity 300.3 cm/s AV Peak Gradient 36.1 mmHg AV Mean Gradient 20.3 mmHg AV Velocity Time Integral 60.5 cm LVOT Peak Velocity 132.0 cm/s LVOT Peak Gradient 7.0 mmHg LVOT Velocity Time Integral 29.4 cm AV Area Cont Eq vti 1.1 cm? AV Area Cont Eq pk 1.0 cm? MV Peak Velocity 170.0 cm/s MV Peak Gradient 11.6 mmHg MV Mean Velocity 90.9 cm/s MV Mean Gradient 4.0 mmHg MV Area PHT 3.3 cm? MR Peak Velocity 574.5 cm/s MR Peak Gradient 132.0 mmHg Mitral E Point Velocity 146.0 cm/s LV E' Lateral Velocity 7.3 cm/s Mitral E to LV E' Lateral Ratio 20.0 LV E' Septal Velocity 5.4 cm/s Mitral E to LV E' Septal Ratio 26.8 TR Peak Velocity 415.0 cm/s TR Peak Gradient 68.9 mmHg FINDINGS Left Ventricle Normal left ventricular size, systolic function with no obvious regional wall motion abnormalities. Mild LVH. The ejection fraction is visually estimated at 55%. Right Ventricle The right ventricle is normal in size.the right ventricular systolic function is severely decreased. The estimated right ventricular systolic pressure, 56 mmHg. RAP 15. Left Atrium The left atrial cavity size is severely increased. Right Atrium The right atrial cavity size is moderately increased. Atrial Septum The interatrial septum appears normal with no evidence of a shunt. Aorta The aorta is normal by two-dimensional, color flow and Doppler interrogation. Mitral Valve [id number] mitral regurgitation. Moderate thickening of the mitral valve leaflets. Aortic Valve Severe thickening of the aortic valve leaflets. Moderate aortic valve stenosis, mean gradient 20.3 mmHg, ANITRA 1.1 cm?. Tricuspid Valve The tricuspid valve is normal by two-dimensional, color flow and Doppler interrogation. There is moderate tricuspid regurgitation. Pulmonic Valve The pulmonic valve is not well visualized. There is no significant pulmonic valve regurgitation. Vessels Dilated inferior vena cava. Pericardium The pericardium is normal by two-dimensional imaging. There is no significant pericardial effusion. CONCLUSIONS Indication: CHF exacerbation Aortic root appears mildly dilated. Aortic valve leaflets are heavy calcification appears to have severe calcific aortic stenosis opening appears with only 1 to 2 mm in both parasternal long axis view and apical views. Peak aortic velocity measured 3.2 m/s but was not parallel to the jet most likely Mr. Severe calcific aortic stenosis. Heavy mitral annulus calcification mitral valve thickening with evidence of mild to moderate 1-2+ mitral regurgitation. Normal-sized left ventricle with evidence of concentric left ventricle hypertrophy with normal left ventricle wall motion normal ejection fraction of 65%. RV is normal in size., right ventricle appears to be mildly dilated with RV dysfunction . The estimated right ventricular systolic pressure, 56 mmHg. RAP 15. There is significant biatrial enlargement. Moderate tricuspid regurgitation. Inferior vena cava is dilated. Nevin Richards (Electronically Signed) Final Date: 11 Feb 2025 19:41
--- NOTE | 2025-02-10 18:08 | PD.RESHP ---
Documentation for date of: 02/10/25 [facility] History of Present Illness History of present illness: Shereen Mccormack is an 84-year-old female with a past medical history of CAD status post stents, HFpEF (60-65% on 04/2023), A-fib on Eliquis, CVA 2018, polycythemia vera, pulmonary fibrosis on 2 L home O2 (baseline SpO2 95%), hypertension, gout, chronic UTIs who presents on 02/10 with worsening shortness of breath and lower extremity edema. She presented to the ED on 12/07/2024 for shortness of breath and CXR at that time showed possible pneumonia in the right base and was discharged with 7 days of levofloxacin. She was also recently seen by her PCP who prescribed cefuroxime on 01/31 for 10 days. Symptoms initially improved but over the past week she has experienced worsening shortness of breath with associated nonproductive cough. Denies fever, chills, sweats. However, she has noticed worsening lower extremity edema and does endorse orthopnea but no PND. States that she is been requiring more oxygen as of late as well. She is normally on 2 L but has had to go up as high as 4 L of home O2 and desaturates into the mid 80s with minimal exertion. Per chart review, upon EMS arrival she was saturating in the 70s and after albuterol breathing treatment x 3 and 6 L NC, she improved to 90%. In the ED, BP 158/84, afebrile, saturating 100% on 4 L NC. Leukocytosis of 15, macrocytic anemia with hemoglobin of 11 and MCV 110, platelets 545. T. bili 1.4 (elevated since 12/07), troponin 0.05, BNP 633. CXR showed moderate CHF, pneumonia of right base, moderate bilateral pleural effusions, 26 mm masslike area in left lung. EKG showed irregular rhythm but sinus with heart rate of 88. PMHx: CAD s/p stents, HFpEF (6 5% on 04/2023), A-fib on Eliquis, CVA 2018, polycythemia vera, pulmonary fibrosis on 2 L home O2, hypertension, gout, chronic UTIs Medications: Albuterol inhaler, allopurinol, bumetanide, carvedilol, cetirizine, Eliquis, folic acid, hydroxyurea, montelukast, omeprazole FHx: Denies family history of cancer, UT, stroke SHx: Denies cigarettes, alcohol use, illicit drug use PSHx: Total abdominal hysterectomy, cholecystectomy Review of Systems Review of Systems Systems Reviewed: All systems reviewed, normal except as documented Exam Vital Signs Temp Pulse Resp BP Pulse Ox O2 Flow Rate 97.7 F 82 16 162/74 H 99 4 02/10/25 17:59 02/10/25 17:59 02/10/25 17:59 02/10/25 17:59 02/10/25 17:59 02/10/25 17:31 Narrative Exam General: AOx3, no acute distress, able to speak full sentences, 4 L NC HEENT: NC/AT, mucous membranes moist, bilateral sclera anicteric Cardiovascular: systolic murmur in left sternal border, irregular rhythm, S1/S2 present Pulmonary: diminished right lung sounds, crackles in left lung bases, no wheezing; 4 L NC, not in respiratory distress Abdominal: soft, non-tender, non-distended, no rebound/guarding, normal bowel sounds present Musculoskeletal: normal ROM, 2+ BLE pitting edema Skin: shiny skin, missing toenails on bilateral feet, warm and dry, intact, no rashes Neuro: CN II-XII intact, no focal deficits Results: Labs 02/11/25 04:15 02/10/25 16:15 Labs: Short CBC 02/10/25 Range/Units 16:15 WBC 15.1 H (3.6-11.0) Thou/mm3 Hgb 11.2 L (12.0-16.0) g/dL Hct 32.4 L (36.0-46.0) % Plt Count 545 H (140-440) Thou/mm3 BMP 02/10/25 16:15 Sodium 133 L Potassium 4.2 Chloride 97 L Carbon Dioxide 28.4 BUN 25 H Creatinine 0.9 Glucose 112 H Calcium 8.6 Cardiac Enzymes 02/10/25 Range/Units 16:15 Troponin I 0.052 H* (0.0-0.045) ng/mL Liver Function 02/10/25 Range/Units 16:15 Total Bilirubin 1.4 H (0.3-1.2) mg/dL AST 21 (0-34) U/L ALT 10 (10-49) U/L Alkaline Phosphatase 42 L (46-116) U/L Albumin 3.8 (3.4-4.8) gm/dL Quality Measures Quality Measures none Advance care planning discussed with:: patient and child Medications Home Medications and Allergies Home Medications ?Medication ?Instructions ?Recorded ?Confirmed ?Type allopurinol 300 mg tablet 300 mg PO QDAY 10/11/18 02/10/25 History alpha lipoic acid 600 mg capsule 600 mg PO QDAY 01/14/23 02/10/25 History atorvastatin 40 mg tablet 40 mg PO QDAY 01/14/23 12/18/24 History benazepril 10 mg tablet 10 mg PO BID PRN hypertension 01/14/23 12/18/24 History carvedilol 12.5 mg tablet 12.5 mg PO BID 01/14/23 02/10/25 History cetirizine 10 mg tablet 10 mg PO QDAY 01/14/23 02/10/25 History cholecalciferol (vitamin D3) 125 5,000 unit PO QDAY 01/14/23 02/10/25 History mcg (5,000 unit) tablet (Vitamin D3) famotidine 40 mg tablet 40 mg PO QDAY 01/14/23 12/18/24 History folic acid 1 mg tablet 1 mg PO TID 01/14/23 02/10/25 History mirabegron 50 mg tablet,extended 50 mg PO QDAY 01/14/23 02/10/25 History release 24 hr (Myrbetriq) montelukast 10 mg tablet 10 mg PO QDAY 01/14/23 02/10/25 History omeprazole 40 mg capsule,delayed 40 mg PO QDAY 01/14/23 02/10/25 History release apixaban 2.5 mg tablet (Eliquis) 2.5 mg PO BID 01/15/23 02/10/25 History nitroglycerin 0.4 mg sublingual 0.4 mg buccal Q5M PRN Chest Pain 01/15/23 12/18/24 History tablet ondansetron HCl 4 mg tablet 4 mg PO QDAY PRN Nausea 01/15/23 12/18/24 History albuterol sulfate 90 mcg/actuation 1 inh inhalation BID 07/09/23 02/10/25 History aerosol inhaler bumetanide 1 mg tablet 1 mg PO QDAY 07/09/23 02/10/25 History guaifenesin 600 mg tablet,extended 600 mg PO BID 07/09/23 02/10/25 History release hydroxyurea 500 mg capsule 1,000 mg PO HS 07/09/23 02/10/25 History budesonide 160 mcg-glycopyr 9 2 inh inhalation BID 12/18/24 12/18/24 History mcg-formot 4.8 mcg/actuation HFA inhaler (Breztri Aerosphere) Allergies Allergy/AdvReac Type Severity Reaction Status Date / Time iodine Allergy Severe Swelling Verified 02/10/25 15:35 of Lip/Tongue/Throat shellfish derived Allergy Severe Swelling Verified 02/10/25 15:35 of Lip/Tongue/Throat Visit Medications Acetaminophen (Acetaminophen 325 Mg Tablet) 650 mg PO Q6H PRN PRN Reason: PAIN OR FEVER > 100.4 Stop: 03/12/25 17:58 Albuterol/Ipratropium (Albuterol/Ipratropium (Duoneb) Rt Luciana 3 Ml Nebu) 3 ml INH Q4HRRT PRN PRN Reason: shortness of breath, wheezing Stop: 03/12/25 18:59 Heparin Sodium (Porcine) (Heparin Sod Inj 5000 Unit/Ml Vial) 5,000 unit SC BID HEIKE Stop: 02/24/25 20:59 Ondansetron HCl (Ondansetron Inj 2 Mg/Ml Inj 2 Ml) 4 mg IV Q6H PRN; Protocol PRN Reason: NAUSEA OR VOMITING Stop: 03/12/25 17:58 Pantoprazole Sodium (Pantoprazole 40 Mg Tablet) 40 mg PO QDAY [facility] Stop: 03/13/25 08:59 Discontinued Medications Doxycycline Hyclate (Doxycycline 100 Mg Tablet) 100 mg PO X1 ONE Stop: 02/10/25 17:07 Last Admin: 02/10/25 17:25 Dose: 100 mg Furosemide (Furosemide Inj 10 Mg/Ml 4ml Vial) 40 mg IVP X1 ONE Stop: 02/10/25 15:25 Last Admin: 02/10/25 16:28 Dose: 40 mg Ceftriaxone Sodium/Dextrose (Rocephin/D5w 1gm Iv Premix) 1 gm in 50 mls @ 100 mls/hr IV X1 ONE Stop: 02/10/25 17:35 Last Infusion: 02/10/25 17:54 Dose: Infused Assessment & Plan Plan Shereen Mccormack is an 84-year-old female with a past medical history of CAD status post stents, HFpEF (6 5% on 04/2023), A-fib on Eliquis, CVA 2018, polycythemia vera, pulmonary fibrosis on 2 L home O2 (baseline SpO2 95%), hypertension, gout, chronic UTIs who presents on 02/10 with worsening shortness of breath and lower extremity edema and admitted for pneumonia and CHF exacerbation #Community acquired pneumonia Presented to ED on 12/07/2024 for SOB and CXR at that time showed possible pneumonia in right base and discharged with 7 days levofloxacin. Also seen by PCP afterwards and prescribed cefuroxime on 01/31 for 10 days. Symptoms initially improved but over the past week SOB worsened with associated nonproductive cough. Denies fever, chills, sweats. States that she is been requiring more oxygen as of late. Normally on 2 L but has had to go up as high as 4 L of home O2 and desaturates into the mid 80s with minimal exertion. WBC 15, CXR showed moderate CHF, pneumonia of right base, moderate bilateral pleural effusions, 26 mm masslike area in left lung. ? Ceftriaxone and azithromycin (02/10-) ? Follow-up blood cultures #Acute decompensated CHF exacerbation #HFpEF (EF 60-65% in 2022) #NSTEMI II, demand ischemia Noticed worsening lower extremity edema and does endorse orthopnea but no PND in association with above symptoms. BNP 633, troponin 0.052. ? Cardiology consulted, appreciate recommendations ? Bumex 1 mg IV twice daily ? Hold home coreg in setting of CHF exacerbation ? Strict I/O's, fluid restriction (1.5 L/day), low sodium diet ? Echo ordered ? Trend troponins until negative delta #Pulmonary fibrosis on 2 L home O2 ? Duonebs q4h prn ? Montelukast 10 mg p.o. HS ? Outpatient follow-up ? Recommend outpatient referral to pulmonology #CAD s/p stents #CVA ? Med rec does not have aspirin or statin #A-fib on eliquis ? Eliquis 2.5 mg p.o. BID #Polycythemia vera ? Hydroxyurea 1,000 mg p.o. HS #GERD ? Pantoprazole 40 mg p.o. daily #Hypertension ? Pending med rec #Gout ? Allopurinol 300 mg p.o. daily Hospital management: Disposition: CAP pneumonia on IV abx, CHF exacerbation Fluids: none Diet: cardiac, low sodium diet Lines: PIV DVT prophylaxis: heparin SC BID GI prophylaxis: pantoprazole p.o. CODE STATUS: DNR ----- After examining the patient and reviewing their clinical data, they would benefit from being admitted to the hospital for further management. Plan discussed with attending physician Dr. Franco Alvarez MD PGY-1 Internal Medicine Attending Provider Attestation/Addendum I reviewed labs, imaging, EKG, home medications and prior available records. Face to face evaluation was performed by me. I have personally examined the patient and discussed assessment and plan with the IM team. I reviewed the resident note and agree with the plan with exceptions as below. Patient is a 84-year-old female with extensive cardiac history who presented with a chief complaint of shortness of breath. She was found to have acute on chronic hypoxic respiratory failure in the setting of CHF exacerbation and possible community-acquired pneumonia. Acute hypoxic respiratory failure CHF exacerbation HFpEF EF 60% in 2022 Non-STEMI Right-sided pleural effusion CAD status post stenting Pulmonary fibrosis Pulmonary hypertension Atrial fibrillation with controlled ventricular rhythm Chronic hypoxic respiratory failure Start IV Bumex 1 mg twice daily Monitor I's and O's Continue oxygen and wean off as tolerated Consulted cardiology Trend troponin Ordered echocardiogram Started IV ceftriaxone/azithromycin Started Tai
[2025-02-10 18:40] LABS: B-Type Natriuretic Peptide 633 pg/mL (0-100)
[2025-02-10] MEDS: AZITHROMYCIN INJ 500 MG in SODIUM CHLORIDE 0.9% 250 ML 250 ML 250 MG IV (18:41)
[2025-02-10] MEDS: BUMETANIDE INJ 0.25 MG/ML VIAL 4 ML 1 MG IVP (21:13)
[2025-02-10] MEDS: FOLIC ACID 1 MG TABLET PO (21:13)
[2025-02-10] MEDS: APIXABAN 2.5 MG TABLET PO (21:13)
[2025-02-10] MEDS: guaiFENesin ER 600 MG TABCR PO (21:14)
[2025-02-10] MEDS: HYDROXYUREA 500 MG CAPSULE 1000 MG PO (21:15)
[2025-02-10] MEDS: HEPARIN SOD INJ 5000 UNIT/ML VIAL SC (21:15)
--- NOTE | 2025-02-10 22:43 | PC.CC ---
THAO King attempted to complete an initial assessment with pt, but pt was unable to speak due to being out of breath and tired. SS to complete initial assessment.
--- NOTE | 2025-02-10 23:01 | PC.NURSE ---
Report given to ENRIQUETA Meltonmechanical project engineer
[2025-02-11] VITALS (10 sets, daily range): BP systolic 114–152; BP diastolic 62–86; PULSE 73–101; RESP 16–19; TEMP 36.2–37.3; O2SAT 93–97; BMI 22.4
[2025-02-11 00:01] LABS: Troponin I 0.055 ng/mL (0.0-0.045)
[2025-02-11] MEDS: FOLIC ACID 1 MG TABLET PO ×3 (05:16→20:47)
[2025-02-11 05:40] LABS: Basophils % (Auto) 0 % (0-2.5); Eosinophils % (Auto) 0 % (0-10); Hemoglobin 10.4 g/dL (12.0-16.0); Immature Granulocytes % (Auto) 2 % (0-0); Immature Granulocytes Auto 0.25 Thou/mm3 (0.00-0.00); Lymphocytes # (Auto) 0.6 Thou/mm3 (1.0-4.8); Lymphocytes % (Auto) 5 % (10-50); Mean Corpuscular HGB Conc 33.5 g/dl (31.0-37.0); Mean Corpuscular Hemoglobin 38.1 pg (25.0-35.0); Mean Corpuscular Volume 114 fL (80-100); Monocytes # (Auto) 0.2 Thou/mm3 (0.0-0.8); Monocytes % (Auto) 2 % (0-12); Neutrophils % (Auto) 90 % (37-80); Nucleated Red Blood Cell # 0.04 Thou/mm3 (0.00-0.00); Nucleated Red Blood Cell % 0 /100 WBC (0); Platelet Count 424 Thou/mm3 (140-440); RDW Standard Deviation 64.5 fL (36.4-46.3); Red Blood Count 2.73 Miln/mm3 (4.00-5.20); White Blood Count 11.1 Thou/mm3 (3.6-11.0)
[2025-02-11 06:28] LABS: Alanine Aminotransferase 9 U/L (10-49); Albumin, Serum 3.4 gm/dL (3.4-4.8); Albumin/Globulin Ratio 1.4 (1.2-2.2); Alkaline Phosphatase 40 U/L (46-116); Anion Gap 8 (7-16); Aspartate Amino Transferase 21 U/L (0-34); BUN/Creatinine Ratio 29 Ratio (12-20); Bilirubin,Total 1.1 mg/dL (0.3-1.2); Blood Urea Nitrogen 23 mg/dL (9-23); Calcium 8.5 mg/dL (8.3-10.6); Carbon Dioxide 30.1 mMol/L (20.0-31.0); Cardiac Risk Estimate 3.5 RATIO (3.7-5.6); Chloride 97 mMol/L (98-107); Cholesterol 104 mg/dL (132-200); Creatinine (Component) 0.8 mg/dL (0.6-1.3); Estimated Creatinine Clearance 47.1 mL/min (>60); Globulin 2.4 gm/dL (2.3-3.5); Glucose 89 mg/dL (74-106); HDL Cholesterol 30 mg/dL (40-60); LDL Cholesterol,Calculated 55 mg/dL (0-130); Magnesium 1.4 mg/dL (1.6-2.6); Osmolality,Calculated 272 (275-295); Phosphorous 3.3 mg/dL (2.4-5.1); Potassium 3.8 mMol/L (3.4-5.1); Sodium 135 mMol/L (136-145); Total Protein 5.8 gm/dL (5.7-8.2); Triglycerides 95 mg/dL (30-150); eGFR > 60 See Note
[2025-02-11 06:32] LABS: Troponin I 0.047 ng/mL (0.0-0.045)
[2025-02-11 06:54] LABS: Path Review Blood Smear Sent to Pathologist
--- NOTE | 2025-02-11 07:16 | PC.SS ---
SS follow up note; Patient is on IV ABX. Pending Cultures.
--- NOTE | 2025-02-11 07:23 | PD.RESPRO ---
Documentation for date of: 02/11/25 Subjective Subjective Interval history: No acute overnight events noted. Seen and examined at bedside and patient states that her shortness of breath has improved. Denies any chest pain, fever, chills, nausea, vomiting. Vital signs stable for her, on 2 L NC saturating 94%, afebrile. K 3.8, Mg 1.4, troponin downtrended. TG 95, cholesterol 104, LDL 55, HDL 30. Blood culture spending. Otherwise, continue with diuresis, IV antibiotics, and follow-up cultures. Exam Vital Signs Temp Pulse Resp BP Pulse Ox O2 Del Method O2 Flow Rate 97.1 F 73 16 128/66 97 Nasal Cannula 2 02/11/25 04:20 02/11/25 04:20 02/11/25 04:20 02/11/25 04:20 02/11/25 04:20 02/11/25 04:20 02/11/25 04:20 Narrative Exam General: AOx3, no acute distress, able to speak full sentences, 4 L NC HEENT: NC/AT, mucous membranes moist, bilateral sclera anicteric Cardiovascular: systolic murmur in left sternal border, irregular rhythm, S1/S2 present Pulmonary: diminished right lung sounds, crackles in left lung bases, no wheezing; 4 L NC, not in respiratory distress Abdominal: soft, non-tender, non-distended, no rebound/guarding, normal bowel sounds present Musculoskeletal: normal ROM, 2+ BLE pitting edema Skin: shiny skin, missing toenails on bilateral feet, warm and dry, intact, no rashes Neuro: CN II-XII intact, no focal deficits Objective Labs 02/11/25 04:15 02/11/25 04:15 Labs: Laboratory Results - last 24 hr 02/10/25 02/10/25 02/11/25 16:15 22:50 04:15 WBC 15.1 H 11.1 H RBC 2.96 L 2.73 L Hgb 11.2 L 10.4 L Hct 32.4 L 31.0 L MCV 110 H 114 H MCH 37.8 H 38.1 H MCHC 34.6 33.5 RDW Std Deviation 62.8 H 64.5 H Plt Count 545 H 424 D Neut % (Auto) 92 H 90 H Lymph % (Auto) 4 L 5 L [place] % (Auto) 2 2 Eos % (Auto) 1 0 Baso % (Auto) 0 0 Neut # (Auto) 13.8 H 10.0 H Lymph # (Auto) 0.5 L 0.6 L [place] # (Auto) 0.3 0.2 Eos # (Auto) 0.1 0.0 Baso # (Auto) 0.1 0.0 Immature Gran # (Auto) 0.30 H 0.25 H Absolute Nucleated RBC 0.04 H 0.04 H Immature Gran % 2 H 2 H Nucleated RBC % 0 0 Smear Path Review Sent to Pathologist Sodium 133 L 135 L Potassium 4.2 3.8 Chloride 97 L 97 L Carbon Dioxide 28.4 30.1 Anion Gap 8 8 BUN 25 H 23 Creatinine 0.9 0.8 Estim Creat Clear Calc 41.9 L 47.1 L eGFR > 60 > 60 BUN/Creatinine Ratio 28 H 29 H Glucose 112 H 89 Calculated Osmolality 271 L 272 L Calcium 8.6 8.5 Corrected Calcium 8.8 9.0 Phosphorus 3.3 Magnesium 1.4 L Total Bilirubin 1.4 H 1.1 AST 21 21 ALT 10 9 L Alkaline Phosphatase 42 L 40 L Troponin I 0.052 H* 0.055 H* 0.047 H* B-Natriuretic Peptide 633 H* Total Protein 6.5 5.8 Albumin 3.8 3.4 Globulin 2.7 2.4 Albumin/Globulin Ratio 1.4 1.4 Triglycerides 95 Cholesterol 104 L LDL Cholesterol, Calc 55 HDL Cholesterol 30 L Cholesterol/HDL Ratio 3.5 L Quality Measures Quality Measures none Advance care planning discussed with:: patient Assessment & Plan Assessment Current Active Medications: Generic Name Dose Route Start Last Admin Trade Name Freq PRN Reason Stop Dose Admin Acetaminophen 650 mg 02/10/25 17:59 Acetaminophen 325 Mg Tablet PO 03/12/25 17:58 Q6H PRN PAIN OR FEVER > 100.4 Albuterol/Ipratropium 3 ml 02/10/25 17:59 Albuterol/Ipratropium (Duoneb) Rt Luciana 3 Ml Nebu INH 03/12/25 18:59 Q4HRRT PRN shortness of breath, wheezing Allopurinol 300 mg 02/11/25 09:00 Allopurinol 100 Mg Tablet PO 03/13/25 08:59 QDAY HEIKE Apixaban 2.5 mg 02/10/25 21:00 02/10/25 21:13 Apixaban 2.5 Mg Tablet PO 03/12/25 20:59 2.5 mg BID HEIKE Administration Bumetanide 1 mg 02/10/25 21:00 02/10/25 21:13 Bumetanide Inj 0.25 Mg/Ml Vial 4 Ml IVP 03/12/25 20:59 1 mg BID HEIKE Administration Folic Acid 1 mg 02/10/25 22:00 02/11/25 05:16 Folic Acid 1 Mg Tablet PO 03/12/25 21:59 1 mg TID HEIKE Administration Guaifenesin 600 mg 02/10/25 21:00 02/10/25 21:14 Guaifenesin Er 600 Mg Tabcr PO 03/12/25 20:59 600 mg BID HEIKE Administration Heparin Sodium (Porcine) 5,000 unit 02/10/25 21:00 02/10/25 21:15 Heparin Sod Inj 5000 Unit/Ml Vial SC 02/24/25 20:59 5,000 unit BID HEIKE Administration Hydroxyurea 1,000 mg 02/10/25 21:00 02/10/25 21:15 Hydroxyurea 500 Mg Capsule PO 03/12/25 20:59 1,000 mg HS HEIKE Administration Azithromycin 500 mg/ Sodium 250 mls @ 250 mls/hr 02/11/25 21:00 Chloride IV 02/18/25 20:59 QDAY@2100 [facility] Ceftriaxone Sodium/Dextrose 1 gm in 50 mls @ 100 mls/hr 02/11/25 09:00 Rocephin/D5w 1gm Iv Premix IV 02/18/25 08:59 QDAY@1400 [facility] Montelukast Sodium 10 mg 02/11/25 21:00 Montelukast Sodium 10 Mg Tablet PO 03/13/25 20:59 HS [facility] Home Medication- 600 mg 02/11/25 09:00 Please Speak With PO 03/13/25 08:59 Patient Caregiver To QDAY [facility] Have Rx Brought To [facility] Ondansetron HCl 4 mg 02/10/25 17:59 Ondansetron Inj 2 Mg/Ml Inj 2 Ml IV 03/12/25 17:58 Q6H PRN NAUSEA OR VOMITING Protocol Pantoprazole Sodium 40 mg 02/11/25 09:00 Pantoprazole 40 Mg Tablet PO 03/13/25 08:59 QDAY [facility] Vitamin D 5,000 iu 02/11/25 09:00 Cholecalciferol (Vitamin D3) 1,000 Iu Tablet PO 03/13/25 08:59 QDAY [facility] Plan Shereen Mccormack is an 84-year-old female with a past medical history of CAD status post stents, HFpEF (6 5% on 04/2023), A-fib on Eliquis, CVA 2018, polycythemia vera, pulmonary fibrosis on 2 L home O2 (baseline SpO2 95%), hypertension, gout, chronic UTIs who presents on 02/10 with worsening shortness of breath and lower extremity edema and admitted for pneumonia and CHF exacerbation #Community acquired pneumonia Presented to ED on 12/07/2024 for SOB and CXR at that time showed possible pneumonia in right base and discharged with 7 days levofloxacin. Also seen by PCP afterwards and prescribed cefuroxime on 01/31 for 10 days. Symptoms initially improved but over the past week SOB worsened with associated nonproductive cough. Denies fever, chills, sweats. States that she is been requiring more oxygen as of late. Normally on 2 L but has had to go up as high as 4 L of home O2 and desaturates into the mid 80s with minimal exertion. WBC 15, CXR showed moderate CHF, pneumonia of right base, moderate bilateral pleural effusions, 26 mm masslike area in left lung. ? Ceftriaxone and azithromycin (02/10-) ? Follow-up blood cultures #Acute decompensated CHF exacerbation #HFpEF (EF 60-65% in 2022) #NSTEMI II, demand ischemia Noticed worsening lower extremity edema and does endorse orthopnea but no PND in association with above symptoms. BNP 633, troponin 0.052. ? Cardiology consulted, appreciate recommendations ? Bumex 1 mg IV twice daily ? Hold home coreg in setting of CHF exacerbation ? Strict I/O's, fluid restriction (1.5 L/day), low sodium diet ? Echo ordered #Pulmonary fibrosis on 2 L home O2 ? Duonebs q4h prn ? Montelukast 10 mg p.o. HS ? Outpatient follow-up ? Recommend outpatient referral to pulmonology #CAD s/p stents #CVA ? Patient states she does not take aspirin or statin and not on home medication list #A-fib on eliquis ? Eliquis 2.5 mg p.o. BID #Polycythemia vera ? Hydroxyurea 1,000 mg p.o. HS #GERD ? Pantoprazole 40 mg p.o. daily #Hypertension ? Pending med rec #Gout ? Allopurinol 300 mg p.o. daily Hospital management: Disposition: CAP pneumonia on IV abx, CHF exacerbation Fluids: none Diet: cardiac, low sodium diet Lines: PIV DVT prophylaxis: heparin SC BID GI prophylaxis: pantoprazole p.o. CODE STATUS: DNR ----- Plan discussed with attending physician Dr. Franco Alvarez MD PGY-1 Internal Medicine Attending Provider Attestation/Addendum I reviewed labs, imaging, EKG, home medications and prior available records. Face to face evaluation was performed by me. I have personally examined the patient and discussed assessment and plan with the IM team. I reviewed the resident note and agree with the plan with exceptions as below. Patient is a 84-year-old female with extensive cardiac history who presented with a chief complaint of shortness of breath. She was found to have acute on chronic hypoxic respiratory failure in the setting of CHF exacerbation and possible community-acquired pneumonia. Acute hypoxic respiratory failure CHF exacerbation HFpEF EF 60% in 2022 Non-STEMI Right-sided pleural effusion CAD status post stenting Pulmonary fibrosis Pulmonary hypertension Atrial fibrillation with controlled ventricular rhythm Chronic hypoxic respiratory failure Start IV Bumex 1 mg twice daily Monitor I's and O's Continue oxygen and wean off as tolerated Consulted cardiology Trend troponin: Peaked Ordered echocardiogram Started IV ceftriaxone/azithromycin Follow-up cultures: Negative to date Started Tai
--- NOTE | 2025-02-11 07:32 | PC.SS ---
Patient Shereen Mccormack is a 84 Year old female admitted for Pneumonia, Pleural Effusion.?Patient confirmed demographic and contact information. Patient resides alone at [facility], however reports she has a occasional caregiver. ?Patient reports she utilizes a walker to assist with ambulation.?Patient reports she does requires minimal assistance completing ADL's. Patient states she utilizes O2 at 2L.? Pt states she wishes to return back to [facility] when medically cleared.? Pt named her son, Sammy Mccormack medical decision maker. ? D/C plan:? Return home Next of Kin: Sammy Mccormack, son, phone# [phone] PCP:? Dr. Burak Hebert
[2025-02-11] MEDS: guaiFENesin ER 600 MG TABCR PO ×2 (08:34→20:35)
[2025-02-11] MEDS: CHOLECALCIFEROL (Vitamin D3) 1,000 IU TABLET 5000 IU PO (08:34)
[2025-02-11] MEDS: APIXABAN 2.5 MG TABLET PO ×2 (08:34→20:35)
[2025-02-11] MEDS: PANTOPRAZOLE 40 MG TABLET PO (08:35)
[2025-02-11] MEDS: POTASSIUM CHLORIDE 20 mEq TABCR PO (08:35)
[2025-02-11] MEDS: allopurinoL 100 MG TABLET 300 MG PO (08:36)
[2025-02-11] MEDS: BUMETANIDE INJ 0.25 MG/ML VIAL 4 ML 1 MG IVP ×2 (08:37→20:35)
[2025-02-11] MEDS: HEPARIN SOD INJ 5000 UNIT/ML VIAL SC ×2 (08:43→20:35)
[2025-02-11] MEDS: cefTRIAXone/D5w 1gm IV premix 1 GM/50 ML BAG IV (08:50)
[2025-02-11] MEDS: Magnesium Sulfate 4 GM Ivpb 4 GM/50 ML BAG IV (08:53)
[2025-02-11] MEDS: ACETAMINOPHEN 325 MG TABLET 650 MG PO ×2 (14:35→21:27)
--- NOTE | 2025-02-11 16:46 | PC.NURSE ---
[facility] 0900 to 1600.
[2025-02-11] MEDS: AZITHROMYCIN INJ 500 MG in SODIUM CHLORIDE 0.9% 250 ML 250 ML 250 MG IV (20:33)
[2025-02-11] MEDS: MONTELUKAST SODIUM 10 MG TABLET PO (20:35)
[2025-02-11] MEDS: HYDROXYUREA 500 MG CAPSULE 1000 MG PO (21:18)
[2025-02-12] VITALS (12 sets, daily range): BP systolic 136–161; BP diastolic 74–94; PULSE 81–120; RESP 16–21; TEMP 36.2–36.9; O2SAT 93–96; BMI 27.1
--- NOTE | 2025-02-12 | XR_ITS ---
Examination: AP chest single view TECHNIQUE: AP upright portable chest single view Date and time: February 12, 2025 1510 hours Comparison February 10, 2025 INDICATIONS: Post right thoracentesis. FINDINGS: No pneumothorax postright thoracentesis Normal heart size Pulmonary mass left midlung again identified IMPRESSION: No pneumothorax postright thoracentesis today
--- NOTE | 2025-02-12 01:06 | ESCONSULT_ITS ---
RE: TORREY SALMON : 1940 DATE OF CONSULTATION: 02/11/2025 CONSULTING PHYSICIANS: and hospitalist team. REASON FOR CONSULTATION: Evaluation of shortness of breath, possible pneumonia and congestive heart failure. CHIEF COMPLAINT: Shortness of breath. HISTORY OF PRESENT ILLNESS: The patient is an 84-year-old female very well known to me for many years, more than 20 years, has a longstanding history of multiple medical problems including known CAD, status post multiple stent placements and most recent stent placement with an angioplasty was in 2017. She has a longstanding history of polycythemia vera and medical management and also history of hypertension, chronic atrial fibrillation, interstitial lung disease, pulmonary fibrosis, on home oxygen therapy, lives in assisted living center, hypertension, hyperuricemia and multiple medical issues. Doing fairly well until recently. She presented to the hospital because of shortness of breath on minimal exertion. Shortness of breath was quite significant. Also has been losing some weight as well. The patient was having infiltrate in the right lung and diagnosed with heart failure and pneumonia and admitted to the hospital for further management and evaluation. The patient also has history of moderate to severe aortic stenosis in the past. Previous stent placed in RCA, LAD multiple times. ALLERGIES: NONE. The patient's EKG does show evidence of atrial fibrillation, nonspecific ST segment changes, rate controlled well. Initial lab data reviewed, showed evidence of white count mildly elevated at 15.1, now down to 11. Chemistry panel showed BNP elevation to 633. Troponin slightly elevated at 0.05 and 0.04. MEDICATIONS: At home, the patient is on: 1. Allopurinol 300 daily. 2. Benazepril 10 mg for blood pressure management. 3. Bumetanide 1 mg daily. 4. Carvedilol 12.5 mg twice daily. 5. Eliquis 2.5 mg b.i.d. for AFib. 6. Hydroxyurea 1000 mg at bedtime for polycythemia vera. 7. Myrbetriq 50 mg daily. 8. Omeprazole 40 daily. 9. Folic acid 1 mg daily. 10. Vitamin D 5000 units daily. PAST MEDICAL HISTORY: CAD, status post stent placement of the left anterior descending artery initially in 2005, subsequently stent placed in the right coronary artery in 2007. In 2017, had angioplasty of the left anterior descending artery proximal, mid segments. All of them at a [facility] hospital. History of polycythemia vera, hypertension, chronic interstitial lung disease, chronic atrial fibrillation, hyperuricemia. SOCIAL HISTORY: The patient lives in longterm facility. Has been losing some weight, poor appetite. Does not smoke or drink alcoholic beverages. FAMILY HISTORY: Nothing contributory. REVIEW OF SYSTEMS: CARDIOVASCULAR: Shortness of breath, no chest pain, fatigue and tiredness. GASTROINTESTINAL: No history of vomiting, nausea or bleeding. Genitourinary: No history of frequency or dysuria. Central Nervous System: No neurologic symptoms. PHYSICAL EXAMINATION: GENERAL: Well-nourished elderly female, thin-built female who is alert, awake, in no acute distress. Chronically ill. VITAL SIGNS: Her weight is about 160 pounds, height 5 feet 5 inches, BMI is 27. Blood pressure 142/86, pulse rate is 90 and irregular, respiratory rate is 18, temperature normal, saturation 94% on room air. HEAD: Atraumatic. NECK: Supple. No JVD. CHEST: Symmetrical. LUNGS: Decreased breath sounds on the right side mostly, dullness on right side. HEART: S1, S2 irregular. A loud systolic murmur at the aortic area. ABDOMEN: Thin and soft. EXTREMITIES: Mild edema of both feet. AND RECTAL: Not performed. NEUROLOGIC: . Electrocardiogram showed atrial fibrillation, nonspecific changes. Enzymes 0.05. BNP is elevated at more than 600. Chest x-ray showed evidence of mild cardiomegaly, congestive heart failure pattern, right pleural effusion and possible pneumonia, left pleural effusion also seen. Cardiac echo performed this evening showed evidence of fairly severe aortic stenosis, aortic velocity 3.2 meters per second, but the valve is not opening at all, suggestive of critical aortic stenosis. Echo missed the severity of aortic stenosis. The patient also has right heart enlargement. Right ventricle, right atrium were enlarged with evidence of moderate pulmonary hypertension. PA pressure mmHg. There is heavy calcification of mitral valve annulus along with moderate mitral regurgitation. There is a definite worsening aortic stenosis. IMPRESSION/ASSESSMENT: 1. Shortness of breath secondary to congestive heart failure and possible pneumonia. 2. Interstitial lung disease, pulmonary fibrosis. 3. Severe and critical aortic stenosis, significant worsening from previous study, now appears to be severe aortic stenosis with evidence of mild to moderate aortic regurgitation. 4. Mitral regurgitation. 5. Coronary artery disease, status post multivessel stent placement of left anterior descending and right coronary artery in the past with mild troponin elevation. 6. Congestive heart failure with preserved ejection fraction. RECOMMENDATIONS: The patient will continue on medical management. The patient may have a fairly significant pleural effusion. Consider thoracentesis of the right chest. The patient does have fairly severe aortic stenosis, definite worsening of aortic stenosis from the last year. Aortic velocity is 3.2 meters per second, but appears to be even worse than the velocity as the aortic valve opening is only 1 mm to 2 mm on the short axis and long axis view. The patient also will be continued on apixaban 2.5 b.i.d., bumetanide 1 mg twice daily for heart failure, antibody therapy for possible pneumonia, ceftriaxone. We will see if we can get any fluid on ultrasound-guided thoracentesis tomorrow. Once the patient has stabilized medically, I will discuss about options of right and left-heart cardiac catheterization. She may benefit from TAVR. The patient still has significant and critical aortic stenosis on echocardiogram examination. I would like to confirm on cardiac catheterization. She may benefit from transcutaneous aortic valve replacement once the condition is stabilized. I would like to thank you for referring this patient for cardiovascular evaluation. I will be glad to follow the patient with you. DT: 23:07:47 TT: 23:43:00 Ref: [id number] - TID: [id number]
[2025-02-12] MEDS: FOLIC ACID 1 MG TABLET PO ×3 (05:24→21:05)
[2025-02-12 06:53] LABS: Basophils # (Auto) 0.1 Thou/mm3 (0.0-0.2); Basophils % (Auto) 1 % (0-2.5); Eosinophils # (Auto) 0.1 Thou/mm3 (0.0-0.5); Eosinophils % (Auto) 0 % (0-10); Hemoglobin 11.6 g/dL (12.0-16.0); Immature Granulocytes % (Auto) 1 % (0-0); Immature Granulocytes Auto 0.19 Thou/mm3 (0.00-0.00); Lymphocytes # (Auto) 0.6 Thou/mm3 (1.0-4.8); Lymphocytes % (Auto) 4 % (10-50); Mean Corpuscular HGB Conc 33.1 g/dl (31.0-37.0); Mean Corpuscular Hemoglobin 37.7 pg (25.0-35.0); Mean Corpuscular Volume 114 fL (80-100); Monocytes # (Auto) 0.2 Thou/mm3 (0.0-0.8); Monocytes % (Auto) 1 % (0-12); Neutrophils # (Auto) 12.6 Thou/mm3 (1.8-7.7); Neutrophils % (Auto) 92 % (37-80); Nucleated Red Blood Cell % 0 /100 WBC (0); Platelet Count 480 Thou/mm3 (140-440); RDW Standard Deviation 65.8 fL (36.4-46.3); Red Blood Count 3.08 Miln/mm3 (4.00-5.20); White Blood Count 13.6 Thou/mm3 (3.6-11.0)
[2025-02-12 07:14] LABS: Alanine Aminotransferase 9 U/L (10-49); Albumin, Serum 3.7 gm/dL (3.4-4.8); Albumin/Globulin Ratio 1.4 (1.2-2.2); Alkaline Phosphatase 43 U/L (46-116); Anion Gap 8 (7-16); Aspartate Amino Transferase 19 U/L (0-34); BUN/Creatinine Ratio 26 Ratio (12-20); Bilirubin,Total 1.4 mg/dL (0.3-1.2); Blood Urea Nitrogen 23 mg/dL (9-23); Calcium 8.8 mg/dL (8.3-10.6); Carbon Dioxide 31.7 mMol/L (20.0-31.0); Chloride 95 mMol/L (98-107); Creatinine (Component) 0.9 mg/dL (0.6-1.3); Estimated Creatinine Clearance 45.8 mL/min (>60); Globulin 2.6 gm/dL (2.3-3.5); Glucose 109 mg/dL (74-106); Magnesium 1.6 mg/dL (1.6-2.6); Osmolality,Calculated 274 (275-295); Phosphorous 3.2 mg/dL (2.4-5.1); Potassium 4.2 mMol/L (3.4-5.1); Sodium 135 mMol/L (136-145); Total Protein 6.3 gm/dL (5.7-8.2); eGFR > 60 See Note
--- NOTE | 2025-02-12 07:44 | ESPR_ITS ---
Documentation for date of: 02/12/25 Subjective Subjective Interval history: Overnight, no acute events reported. Patient seen and examined at bedside. Per x-ray, patient does appear to have some pleural fluid on right chest. Patient also is unable to lay flat, and is requiring oxygen. Patient states that she is laying flat, she is going to choke. Cardiology recommended patient to undergo a right and left heart catheterization for possible TAVR in the future. Echo showed: Aortic root mildly dilated, aortic valve leaflets are heavily calcified with severe calcific aortic stenosis at opening, heavy mitral annulus calcification mitral valve thickening with evidence of mild to moderate 1-2+ mitral regurgitation, normal-sized left ventricle with evidence of concentric left ventricle hypertrophy with normal left ventricle wall motion normal ejection fraction of 65%, mild RV ventricle dilatuion with RV dysfunction, significant biatrial enlargement, moderate tricuspid regurgitation, and inferior vena cava is dilated. Patient is aware of the findings from echocardiogram and is concerned about the contrast used during angiogram due to her allergy to shellfish. However, patient is willing to have thoracentesis procedure as patient does feel congested. In addition, labs today show elevated T. bili of 1.4, and low Mag, will replete. All questions asked and answered. Exam Vital Signs Temp Pulse Resp BP Pulse Ox O2 Del Method O2 Flow Rate 97.2 F 85 17 136/75 H 96 Nasal Cannula 2 02/12/25 04:00 02/12/25 04:00 02/12/25 04:00 02/12/25 04:00 02/12/25 04:00 02/12/25 04:00 02/12/25 04:00 Narrative Exam General: AOx3, in mild acute distress, able to speak full sentences, 4 L NC HEENT: NC/AT, mucous membranes moist, bilateral sclera anicteric Cardiovascular: systolic murmur in left sternal border, irregular rhythm, S1/S2 present Pulmonary: diminished right lung sounds, crackles in left lung bases, no wheezing; 4 L NC Abdominal: soft, non-tender, non-distended, no rebound/guarding, normal bowel sounds present Musculoskeletal: normal ROM, 2+ BLE pitting edema Skin: shiny skin, missing toenails on bilateral feet, warm and dry, intact, no rashes Neuro: CN II-XII intact, no focal deficits Objective Labs 02/12/25 05:39 02/12/25 05:39 Labs: Laboratory Results - last 24 hr 02/12/25 05:39 WBC 13.6 H RBC 3.08 L Hgb 11.6 L Hct 35.0 L MCV 114 H MCH 37.7 H MCHC 33.1 RDW Std Deviation 65.8 H Plt Count 480 H D Neut % (Auto) 92 H Lymph % (Auto) 4 L [place] % (Auto) 1 Eos % (Auto) 0 Baso % (Auto) 1 Neut # (Auto) 12.6 H Lymph # (Auto) 0.6 L [place] # (Auto) 0.2 Eos # (Auto) 0.1 Baso # (Auto) 0.1 Immature Gran # (Auto) 0.19 H Absolute Nucleated RBC 0.00 Immature Gran % 1 H Nucleated RBC % 0 Sodium 135 L Potassium 4.2 Chloride 95 L Carbon Dioxide 31.7 H Anion Gap 8 BUN 23 Creatinine 0.9 Estim Creat Clear Calc 45.8 L eGFR > 60 BUN/Creatinine Ratio 26 H Glucose 109 H Calculated Osmolality 274 L Calcium 8.8 Corrected Calcium 9.0 Phosphorus 3.2 Magnesium 1.6 Total Bilirubin 1.4 H AST 19 ALT 9 L Alkaline Phosphatase 43 L Total Protein 6.3 Albumin 3.7 Globulin 2.6 Albumin/Globulin Ratio 1.4 Quality Measures Quality Measures none Advance care planning discussed with:: patient Assessment & Plan Assessment Current Active Medications: Generic Name Dose Route Start Last Admin Trade Name Freq PRN Reason Stop Dose Admin Acetaminophen 650 mg 02/10/25 17:59 02/11/25 21:27 Acetaminophen 325 Mg Tablet PO 03/12/25 17:58 650 mg Q6H PRN Administration PAIN OR FEVER > 100.4 Albuterol/Ipratropium 3 ml 02/10/25 17:59 Albuterol/Ipratropium (Duoneb) Rt Luciana 3 Ml Nebu INH 03/12/25 18:59 Q4HRRT PRN shortness of breath, wheezing Allopurinol 300 mg 02/11/25 09:00 02/11/25 08:36 Allopurinol 100 Mg Tablet PO 03/13/25 08:59 300 mg QDAY HEIKE Administration Apixaban 2.5 mg 02/10/25 21:00 02/11/25 20:35 Apixaban 2.5 Mg Tablet PO 03/12/25 20:59 2.5 mg BID HEIKE Administration Bumetanide 1 mg 02/10/25 21:00 02/11/25 20:35 Bumetanide Inj 0.25 Mg/Ml Vial 4 Ml IVP 03/12/25 20:59 1 mg BID HEIKE Administration Folic Acid 1 mg 02/10/25 22:00 02/12/25 05:24 Folic Acid 1 Mg Tablet PO 03/12/25 21:59 1 mg TID HEIKE Administration Guaifenesin 600 mg 02/10/25 21:00 02/11/25 20:35 Guaifenesin Er 600 Mg Tabcr PO 03/12/25 20:59 600 mg BID HEIKE Administration Heparin Sodium (Porcine) 5,000 unit 02/10/25 21:00 02/11/25 20:35 Heparin Sod Inj 5000 Unit/Ml Vial SC 02/24/25 20:59 5,000 unit BID HEIKE Administration Hydroxyurea 1,000 mg 02/10/25 21:00 02/11/25 21:18 Hydroxyurea 500 Mg Capsule PO 03/12/25 20:59 1,000 mg HS HEIKE Administration Azithromycin 500 mg/ Sodium 250 mls @ 250 mls/hr 02/11/25 21:00 02/11/25 20:33 Chloride IV 02/18/25 20:59 250 mls/hr QDAY@2100 HEIKE Administration Ceftriaxone Sodium/Dextrose 1 gm in 50 mls @ 100 mls/hr 02/11/25 09:00 02/11/25 16:38 Rocephin/D5w 1gm Iv Premix IV 02/18/25 08:59 Infused QDAY@1400 HEIKE Infusion Magnesium Sulfate 4 gm in 50 mls @ 12.5 mls/hr 02/12/25 07:43 Magnesium Sulfate Ivpb IV 02/12/25 11:42 X1 ONE Montelukast Sodium 10 mg 02/11/25 21:00 02/11/25 20:35 Montelukast Sodium 10 Mg Tablet PO 03/13/25 20:59 10 mg HS HEIKE Administration Home Medication- 600 mg 02/11/25 09:00 02/11/25 08:37 Please Speak With PO 03/13/25 08:59 Not Given Patient Caregiver To QDAY HEIKE Have Rx Brought To [facility] Ondansetron HCl 4 mg 02/10/25 17:59 Ondansetron Inj 2 Mg/Ml Inj 2 Ml IV 03/12/25 17:58 Q6H PRN NAUSEA OR VOMITING Protocol Pantoprazole Sodium 40 mg 02/11/25 09:00 02/11/25 08:35 Pantoprazole 40 Mg Tablet PO 03/13/25 08:59 40 mg QDAY HEIKE Administration Vitamin D 5,000 iu 02/11/25 09:00 02/11/25 08:34 Cholecalciferol (Vitamin D3) 1,000 Iu Tablet PO 03/13/25 08:59 5,000 iu QDAY HEIKE Administration Plan Shereen Mccormack is an 84-year-old female with a past medical history of CAD status post stents, HFpEF (6 5% on 04/2023), A-fib on Eliquis, CVA 2017, polycythemia vera, pulmonary fibrosis on 2 L home O2 (baseline SpO2 95%), hypertension, gout, chronic UTIs who presents on 02/10 with worsening shortness of breath and lower extremity edema and admitted for pneumonia and CHF exacerbation #Community acquired pneumonia Presented to ED on 12/07/2024 for SOB and CXR at that time showed possible pneumonia in right base and discharged with 7 days levofloxacin. Also seen by PCP afterwards and prescribed cefuroxime on 01/31 for 10 days. Symptoms initially improved but over the past week SOB worsened with associated nonproductive cough. Denies fever, chills, sweats. States that she is been requiring more oxygen as of late. Normally on 2 L but has had to go up as high as 4 L of home O2 and desaturates into the mid 80s with minimal exertion. WBC 15, CXR showed moderate CHF, pneumonia of right base, moderate bilateral pleural effusions, 26 mm masslike area in left lung. Blood cultures negative in the last 24 hours ? Ceftriaxone and azithromycin (02/10-) ? Follow-up blood cultures #Acute decompensated CHF exacerbation #HFpEF (EF 60-65% in 2022) #NSTEMI II, demand ischemia Noticed worsening lower extremity edema and does endorse orthopnea but no PND in association with above symptoms. BNP 633, troponin 0.052. Echo showed: Aortic root mildly dilated, aortic valve leaflets are heavily calcified with severe calcific aortic stenosis at opening, heavy mitral annulus calcification mitral valve thickening with evidence of mild to moderate 1-2+ mitral regurgitation, normal-sized left ventricle with evidence of concentric left ventricle hypertrophy with normal left ventricle wall motion normal ejection fraction of 65%, mild RV ventricle dilatuion with RV dysfunction, significant biatrial enlargement, moderate tricuspid regurgitation, and inferior vena cava is dilated. ? Cardiology consulted, appreciate recommendations ? Bumex 1 mg IV twice daily ? Hold home coreg in setting of CHF exacerbation ? Strict I/O's, fluid restriction (1.5 L/day), low sodium diet ? At this time, will order right thoracentesis to see if patient is able to decrease her oxygen requirements for possible right/left heart catheterization procedure #Pulmonary fibrosis on 2 L home O2 ? Duonebs q4h prn ? Montelukast 10 mg p.o. HS ? Outpatient follow-up ? Recommend outpatient referral to pulmonology #CAD s/p stents #CVA ? Patient states she does not take aspirin or statin and not on home medication list #A-fib on eliquis ? Eliquis 2.5 mg p.o. BID #Polycythemia vera ? Hydroxyurea 1,000 mg p.o. HS #GERD ? Pantoprazole 40 mg p.o. daily #Hypertension ? Pending med rec #Gout ? Allopurinol 300 mg p.o. daily Hospital management: Disposition: CAP pneumonia on IV abx, CHF exacerbation Fluids: none Diet: cardiac, low sodium diet Lines: PIV DVT prophylaxis: heparin SC BID GI prophylaxis: pantoprazole p.o. CODE STATUS: DNR Patient's plan and care discussed with my attending, Dr. Franco Chowdhury MD PGY-2 Attending Provider Attestation/Addendum I reviewed labs, imaging, EKG, home medications and prior available records. Face to face evaluation was performed by me. I have personally examined the patient and discussed assessment and plan with the IM team. I reviewed the resident note and agree with the plan with exceptions as below. Patient is a 84-year-old female with extensive cardiac history who presented with a chief complaint of shortness of breath. She was found to have acute on chronic hypoxic respiratory failure in the setting of CHF exacerbation and possible community-acquired pneumonia. Acute hypoxic respiratory failure CHF exacerbation HFpEF EF 60% in 2022 Non-STEMI Right-sided pleural effusion CAD status post stenting Pulmonary fibrosis Pulmonary hypertension Atrial fibrillation with controlled ventricular rhythm Chronic hypoxic respiratory failure Status post cardiac catheterization that showed severe aortic stenosis and preserved EF Discussed with cardiology: Will evaluate for repair. Plan for cardiac catheterization Ordered IR guided thoracentesis for the right-sided effusion Continue IV Bumex 1 mg twice daily Monitor I's and O's Continue oxygen and wean off as tolerated Cardiology is following Trend troponin: Peaked Continue IV ceftriaxone/azithromycin Follow-up cultures: Negative to date Continue Tai
--- NOTE | 2025-02-12 07:49 | XR_ITS ---
Examination: Ultrasound-guided right thoracentesis Ultrasound right hemithorax Ultrasound left hemithorax Date and time: February 12, 2025 1428 hours INDICATIONS: Difficulty breathing this week, moderate bilateral pleural effusions on chest x-ray February 10, 2025 TECHNIQUE AND FINDINGS: Grayscale sonographic images right and left hemithoraces, large right moderate left pleural effusions Informed consent provided. Timeout performed. Skin prepped over the right hemithorax and sterile drape applied maximum sterile barrier technique hand hygiene ultrasound sterile technique 1% lidocaine administered for local anesthesia Utilizing ultrasonographic guidance 5 [place] catheter placed in the right pleural space 1600 cc pleural fluid removed Estimated blood loss 0 cc IMPRESSION: Successful ultrasound-guided right thoracentesis, 1600 cc pleural fluid removed
[2025-02-12 08:23] LABS: INR 1.3 (0.9-1.3); Partial Thromboplastin Time 34.2 Seconds (22.0-36.0); Prothrombin Time 13.9 Seconds (9.0-12.2)
[2025-02-12] MEDS: CHOLECALCIFEROL (Vitamin D3) 1,000 IU TABLET 5000 IU PO (09:04)
[2025-02-12] MEDS: APIXABAN 2.5 MG TABLET PO ×2 (09:04→20:52)
[2025-02-12] MEDS: BUMETANIDE INJ 0.25 MG/ML VIAL 4 ML 1 MG IVP ×2 (09:04→20:52)
[2025-02-12] MEDS: PANTOPRAZOLE 40 MG TABLET PO (09:05)
[2025-02-12] MEDS: guaiFENesin ER 600 MG TABCR PO ×2 (09:05→20:53)
[2025-02-12] MEDS: allopurinoL 100 MG TABLET 300 MG PO (09:05)
[2025-02-12] MEDS: Magnesium Sulfate 4 GM Ivpb 4 GM/50 ML BAG IV (09:06)
[2025-02-12] MEDS: HEPARIN SOD INJ 5000 UNIT/ML VIAL SC ×2 (09:06→20:53)
--- NOTE | 2025-02-12 12:28 | ESPR_ITS ---
<Statement entered by Tiffani Fountain MD - 02/13/25 08:30> I personally examined evaluated the patient has multiple medical problems including known CAD multiple stents placed and aortic stenosis cardiac echo showed fairly significant worsening of aortic no severe aortic stenosis will probably require intervention at a later date patient's current status is stable she is feeling little better with the current regimens antibiotics her symptoms are due to combination of factors including aortic stenosis and congestive heart failure we will continue medical management IV antibiotics once she is feeling better discharged home to have further evaluation as an outpatient with cardiac catheterization to assess if she is a candidate for TAVR procedure evaluate the patient with resident physician Dr. Hill will continue to monitor the patient closely while in the hospital Documentation for date of: 02/12/25 Subjective Subjective Interval history: Patient was seen and examined at bedside. No acute overnight events. Patient continues to complain of shortness of breath, she is on 4 L NC. Patient is in A-fib but rate controlled at 100s. Otherwise her vital signs are stable. Pending IR guided thoracocentesis. Continue current management with antibiotics for pneumonia. Continue apixaban and Bumex. Resume home Coreg. Possible cardiac catheterization during this admission and very likely will need TAVR. Exam Vital Signs Temp Pulse Resp BP Pulse Ox O2 Del Method O2 Flow Rate 98.5 F 89 20 154/80 H 93 L Nasal Cannula 2 02/12/25 08:00 02/12/25 12:00 02/12/25 08:00 02/12/25 09:04 02/12/25 08:00 02/12/25 08:00 02/12/25 08:00 Narrative Exam Gen: Well-developed and well-nourished female. HEENT: NCAT, PERRLA, EOMI, MMM, anicteric conjunctivae. CVS: normal S1 and S2. Irregularly irregular. Systolic murmur best heard over right sternal border. Resp: Decreased breath sounds over right lung. No rhonchi, rales, crackles or wheezing. Abd: soft, non-tender, non-distended. BS+ in all 4 quadrants. MSK: Good ROM in BUE & BLE. No rash. 2+ pitting edema BLE. Neuro: CN II-XII grossly intact. Strength 5/5 in BUE & BLE. Alert and oriented x3. Psych: appropriate mood and affect. Objective Labs 02/12/25 05:39 02/12/25 05:39 Labs: Laboratory Results - last 24 hr 02/12/25 05:39 WBC 13.6 H RBC 3.08 L Hgb 11.6 L Hct 35.0 L MCV 114 H MCH 37.7 H MCHC 33.1 RDW Std Deviation 65.8 H Plt Count 480 H D Neut % (Auto) 92 H Lymph % (Auto) 4 L [place] % (Auto) 1 Eos % (Auto) 0 Baso % (Auto) 1 Neut # (Auto) 12.6 H Lymph # (Auto) 0.6 L [place] # (Auto) 0.2 Eos # (Auto) 0.1 Baso # (Auto) 0.1 Immature Gran # (Auto) 0.19 H Absolute Nucleated RBC 0.00 Immature Gran % 1 H Nucleated RBC % 0 PT 13.9 H INR 1.3 APTT 34.2 Sodium 135 L Potassium 4.2 Chloride 95 L Carbon Dioxide 31.7 H Anion Gap 8 BUN 23 Creatinine 0.9 Estim Creat Clear Calc 45.8 L eGFR > 60 BUN/Creatinine Ratio 26 H Glucose 109 H Calculated Osmolality 274 L Calcium 8.8 Corrected Calcium 9.0 Phosphorus 3.2 Magnesium 1.6 Total Bilirubin 1.4 H AST 19 ALT 9 L Alkaline Phosphatase 43 L Total Protein 6.3 Albumin 3.7 Globulin 2.6 Albumin/Globulin Ratio 1.4 Quality Measures Quality Measures VTE prophylaxis Advance care planning discussed with:: patient Assessment & Plan Assessment Current Active Medications: Generic Name Dose Route Start Last Admin Trade Name Freq PRN Reason Stop Dose Admin Acetaminophen 650 mg 02/10/25 17:59 02/11/25 21:27 Acetaminophen 325 Mg Tablet PO 03/12/25 17:58 650 mg Q6H PRN Administration PAIN OR FEVER > 100.4 Albuterol/Ipratropium 3 ml 02/10/25 17:59 Albuterol/Ipratropium (Duoneb) Rt Luciana 3 Ml Nebu INH 03/12/25 18:59 Q4HRRT PRN shortness of breath, wheezing Allopurinol 300 mg 02/11/25 09:00 02/12/25 09:05 Allopurinol 100 Mg Tablet PO 03/13/25 08:59 300 mg QDAY HEIKE Administration Apixaban 2.5 mg 02/10/25 21:00 02/12/25 09:04 Apixaban 2.5 Mg Tablet PO 03/12/25 20:59 2.5 mg BID HEIKE Administration Bumetanide 1 mg 02/10/25 21:00 02/12/25 09:04 Bumetanide Inj 0.25 Mg/Ml Vial 4 Ml IVP 03/12/25 20:59 1 mg BID HEIKE Administration Folic Acid 1 mg 02/10/25 22:00 02/12/25 05:24 Folic Acid 1 Mg Tablet PO 03/12/25 21:59 1 mg TID HEIKE Administration Guaifenesin 600 mg 02/10/25 21:00 02/12/25 09:05 Guaifenesin Er 600 Mg Tabcr PO 03/12/25 20:59 600 mg BID HEIKE Administration Heparin Sodium (Porcine) 5,000 unit 02/10/25 21:00 02/12/25 09:06 Heparin Sod Inj 5000 Unit/Ml Vial SC 02/24/25 20:59 5,000 unit BID HEIKE Administration Hydroxyurea 1,000 mg 02/10/25 21:00 02/11/25 21:18 Hydroxyurea 500 Mg Capsule PO 03/12/25 20:59 1,000 mg HS HEIKE Administration Azithromycin 500 mg/ Sodium 250 mls @ 250 mls/hr 02/11/25 21:00 02/11/25 20:33 Chloride IV 02/18/25 20:59 250 mls/hr QDAY@2100 HEIKE Administration Ceftriaxone Sodium/Dextrose 1 gm in 50 mls @ 100 mls/hr 02/11/25 09:00 02/11/25 16:38 Rocephin/D5w 1gm Iv Premix IV 02/18/25 08:59 Infused QDAY@1400 HEIKE Infusion Montelukast Sodium 10 mg 02/11/25 21:00 02/11/25 20:35 Montelukast Sodium 10 Mg Tablet PO 03/13/25 20:59 10 mg HS HEIKE Administration Home Medication- 600 mg 02/11/25 09:00 02/12/25 11:44 Please Speak With PO 03/13/25 08:59 Not Given Patient Caregiver To QDAY HEIKE Have Rx Brought To [facility] Ondansetron HCl 4 mg 02/10/25 17:59 Ondansetron Inj 2 Mg/Ml Inj 2 Ml IV 03/12/25 17:58 Q6H PRN NAUSEA OR VOMITING Protocol Pantoprazole Sodium 40 mg 02/11/25 09:00 02/12/25 09:05 Pantoprazole 40 Mg Tablet PO 03/13/25 08:59 40 mg QDAY HEIKE Administration Vitamin D 5,000 iu 02/11/25 09:00 02/12/25 09:04 Cholecalciferol (Vitamin D3) 1,000 Iu Tablet PO 03/13/25 08:59 5,000 iu QDAY HEIKE Administration Plan Patient is 84 years old female with past medical history of CAD status post stents, HFpEF (65% on 04/2023), A-fib on Eliquis, CVA 2018, polycythemia vera, pulmonary fibrosis on 2 L home O2 (baseline SpO2 95%), hypertension, gout, chronic UTIs, aortic stenosis presented to the ED due to worsening shortness of breath over the last 2 weeks and was admitted for further management and evaluation. #Severe aortic stenosis. #Acute decompensated CHF exacerbation. #HFpEF (EF 60-65% in 2022). Patient presented with chief complaint of shortness of breath worsening significantly over the last 2 weeks. On admission labs showed BNP 633, troponin 0.052. Prior echo in 2022 showed ejection fraction 65%. At home patient is taking carvedilol 12.5 mg twice daily, Bumex 1 mg daily. Echo showed Aortic root appears mildly dilated. Aortic valve leaflets are heavy calcification appears to have severe calcific aortic stenosis opening appears with only 1 to 2 mm in both parasternal long axis view and apical views. Peak aortic velocity measured 3.2 m/s but was not parallel to the jet most likely Mr. Severe calcific aortic stenosis. Heavy mitral annulus calcification mitral valve thickening with evidence of mild to moderate 1-2+ mitral regurgitation. Normal- sized left ventricle with evidence of concentric left ventricle hypertrophy with normal left ventricle wall motion normal ejection fraction of 65%. RV is normal in size., right ventricle appears to be mildly dilated with RV dysfunction. The estimated right ventricular systolic pressure, 56 mmHg. RAP 15. There is significant biatrial enlargement. Moderate tricuspid regurgitation. Inferior vena cava is dilated. Plan: ? resume home Coreg 12.5 mg BID. ? Bumex 1 mg IV twice daily. ? Strict I/O's, fluid restriction (1.5 L/day), low sodium diet, and daily weights. ? Continue current management for pneumonia and proceed with thoracocentesis. Patient will need to have left heart catheterization due to severe aortic stenosis and possible need for TAVR. # Troponinemia. #CAD s/p stents placement. # History of CVA ? Patient states she does not take aspirin or statin and not on home medication list. ? Troponin peaked at 0.055 and down trended, last reading 0.047. #A-fib on Eliquis. -Patient is irregularly irregular appears to be in A-fib, rate controlled at 100's. Plan: ? Continue home Eliquis 2.5 mg p.o. BID. #Polycytemia vera. - continue hydroxyuria. Management of other problems as per primary team. Plan of care discussed with attending Dr. Fountain. Sergio Herbert MD, PGY 2. Disclaimer: This note was dictated by speech recognition. Minor errors in chute worker may be present due to voice recognition software.
--- NOTE | 2025-02-12 15:27 | PC.SS ---
SS follow up note: Pending IR guided thoracocentesis. Possible discharge within 3-4 Days. Patient will discharge home when medically cleared.
[2025-02-12] MEDS: cefTRIAXone/D5w 1gm IV premix 1 GM/50 ML BAG IV (15:46)
[2025-02-12 16:23] LABS: Amylase,Pleural Fluid 32 IU/L; Glucose,Pleural Fluid 132 mg/dL; LDH,Pleural Fluid 99 IU/L; Protein Total,Pleural Fluid < 2.0 g/dL
[2025-02-12 16:43] LABS: Pleural Fluid RBC 0 /cmm; Pleural Fluid WBC 144 /cmm
[2025-02-12 16:57] LABS: Pleural Fluid Appearance Clear; Pleural Fluid Color Yellow; Pleural Fluid Mononuclear 60 %; Pleural Fluid Polynuclear 40 %
[2025-02-12] MEDS: carVEDILOL 12.5 MG TABLET PO (17:20)
[2025-02-12] MEDS: ACETAMINOPHEN 325 MG TABLET 650 MG PO (19:21)
[2025-02-12] MEDS: AZITHROMYCIN INJ 500 MG in SODIUM CHLORIDE 0.9% 250 ML 250 ML 250 MG IV (20:52)
[2025-02-12] MEDS: MONTELUKAST SODIUM 10 MG TABLET PO (20:53)
[2025-02-12] MEDS: HYDROXYUREA 500 MG CAPSULE 1000 MG PO (20:53)
[2025-02-13] VITALS (13 sets, daily range): BP systolic 119–145; BP diastolic 67–80; PULSE 70–94; RESP 13–18; TEMP 36.3–37.3; O2SAT 95–99; BMI 27.1
[2025-02-13] MEDS: FOLIC ACID 1 MG TABLET PO ×3 (05:24→21:00)
[2025-02-13 05:53] LABS: Basophils # (Auto) 0.1 Thou/mm3 (0.0-0.2); Basophils % (Auto) 0 % (0-2.5); Eosinophils % (Auto) 0 % (0-10); Hematocrit 34.8 % (36.0-46.0); Hemoglobin 11.4 g/dL (12.0-16.0); Immature Granulocytes % (Auto) 2 % (0-0); Immature Granulocytes Auto 0.29 Thou/mm3 (0.00-0.00); Lymphocytes # (Auto) 0.5 Thou/mm3 (1.0-4.8); Lymphocytes % (Auto) 4 % (10-50); Mean Corpuscular HGB Conc 32.8 g/dl (31.0-37.0); Mean Corpuscular Hemoglobin 37.4 pg (25.0-35.0); Mean Corpuscular Volume 114 fL (80-100); Monocytes # (Auto) 0.2 Thou/mm3 (0.0-0.8); Monocytes % (Auto) 1 % (0-12); Neutrophils # (Auto) 11.9 Thou/mm3 (1.8-7.7); Neutrophils % (Auto) 92 % (37-80); Nucleated Red Blood Cell # 0.02 Thou/mm3 (0.00-0.00); Nucleated Red Blood Cell % 0 /100 WBC (0); Platelet Count 500 Thou/mm3 (140-440); RDW Standard Deviation 64.3 fL (36.4-46.3); Red Blood Count 3.05 Miln/mm3 (4.00-5.20)
[2025-02-13 06:26] LABS: Alanine Aminotransferase 7 U/L (10-49); Albumin, Serum 3.4 gm/dL (3.4-4.8); Albumin/Globulin Ratio 1.3 (1.2-2.2); Alkaline Phosphatase 43 U/L (46-116); Anion Gap 6 (7-16); Aspartate Amino Transferase 20 U/L (0-34); BUN/Creatinine Ratio 30 Ratio (12-20); Bilirubin,Total 1.5 mg/dL (0.3-1.2); Blood Urea Nitrogen 24 mg/dL (9-23); Calcium 8.7 mg/dL (8.3-10.6); Calcium (Corrected) 9.2 mg/dL (8.5-10.1); Carbon Dioxide 32.7 mMol/L (20.0-31.0); Chloride 94 mMol/L (98-107); Creatinine (Component) 0.8 mg/dL (0.6-1.3); Estimated Creatinine Clearance 51.6 mL/min (>60); Globulin 2.6 gm/dL (2.3-3.5); Glucose 100 mg/dL (74-106); Magnesium 1.9 mg/dL (1.6-2.6); Osmolality,Calculated 270 (275-295); Phosphorous 3.5 mg/dL (2.4-5.1); Potassium 3.8 mMol/L (3.4-5.1); Sodium 133 mMol/L (136-145); eGFR > 60 See Note
--- NOTE | 2025-02-13 09:00 | ESPR_ITS ---
Documentation for date of: 02/13/25 Subjective Subjective Interval history: Overnight, no acute events reported. Patient states that her breathing is a lot better after 1.6 L of fluid with pulled out from her right lungs. Patient is progressing back to her baseline oxygen requirements. Will reach out to cardiology for further recommendations on angiogram either inpatient or outpatient. Patient also informed about her enlarging pulmonary mass that is 26 mm in the left upper lobe. Patient was informed that she can follow-up outpatient in regards to having a biopsy. Anticipate discharge within 24 hours. Patient's family would also like physical therapy evaluation. Exam Vital Signs Temp Pulse Resp BP Pulse Ox O2 Del Method O2 Flow Rate 97.6 F 80 17 134/69 H 98 Nasal Cannula 2 02/13/25 04:00 02/13/25 04:00 02/13/25 04:00 02/13/25 04:00 02/13/25 04:00 02/13/25 04:00 02/13/25 04:00 Narrative Exam General: AOx3, in mild acute distress, able to speak full sentences, 4 L NC HEENT: NC/AT, mucous membranes moist, bilateral sclera anicteric Cardiovascular: systolic murmur in left sternal border, irregular rhythm, S1/S2 present Pulmonary: diminished right lung sounds, crackles in left lung bases, no wheezing; 4 L NC Abdominal: soft, non-tender, non-distended, no rebound/guarding, normal bowel sounds present Musculoskeletal: normal ROM, 2+ BLE pitting edema Skin: shiny skin, missing toenails on bilateral feet, warm and dry, intact, no rashes Neuro: CN II-XII intact, no focal deficits Objective Labs 02/13/25 04:10 02/13/25 04:10 Labs: Laboratory Results - last 24 hr 02/12/25 02/13/25 15:50 04:10 WBC 13.0 H RBC 3.05 L Hgb 11.4 L Hct 34.8 L MCV 114 H MCH 37.4 H MCHC 32.8 RDW Std Deviation 64.3 H Plt Count 500 H Neut % (Auto) 92 H Lymph % (Auto) 4 L [place] % (Auto) 1 Eos % (Auto) 0 Baso % (Auto) 0 Neut # (Auto) 11.9 H Lymph # (Auto) 0.5 L [place] # (Auto) 0.2 Eos # (Auto) 0.0 Baso # (Auto) 0.1 Immature Gran # (Auto) 0.29 H Absolute Nucleated RBC 0.02 H Immature Gran % 2 H Nucleated RBC % 0 Sodium 133 L Potassium 3.8 Chloride 94 L Carbon Dioxide 32.7 H Anion Gap 6 L BUN 24 H Creatinine 0.8 Estim Creat Clear Calc 51.6 L eGFR > 60 BUN/Creatinine Ratio 30 H Glucose 100 Calculated Osmolality 270 L Calcium 8.7 Corrected Calcium 9.2 Phosphorus 3.5 Magnesium 1.9 Total Bilirubin 1.5 H AST 20 ALT 7 L Alkaline Phosphatase 43 L Total Protein 6.0 Albumin 3.4 Globulin 2.6 Albumin/Globulin Ratio 1.3 Pleural Color Yellow Pleural Appearance Clear Pleural WBC 144 Pleural RBC 0 Pleural Polynuclear WBC 40 Pleural Mononuclear WBC 60 Pleural Total Protein < 2.0 Pleural LDH 99 Pleural Glucose 132 Pleural Amylase 32 Quality Measures Quality Measures VTE prophylaxis Advance care planning discussed with:: patient Assessment & Plan Assessment Current Active Medications: Generic Name Dose Route Start Last Admin Trade Name Freq PRN Reason Stop Dose Admin Acetaminophen 650 mg 02/10/25 17:59 02/12/25 19:21 Acetaminophen 325 Mg Tablet PO 03/12/25 17:58 650 mg Q6H PRN Administration PAIN OR FEVER > 100.4 Albuterol/Ipratropium 3 ml 02/10/25 17:59 Albuterol/Ipratropium (Duoneb) Rt Luc[place] 3 Ml Nebu INH 03/12/25 18:59 Q4HRRT PRN shortness of breath, wheezing Allopurinol 300 mg 02/11/25 09:00 02/12/25 09:05 Allopurinol 100 Mg Tablet PO 03/13/25 08:59 300 mg QDAY HEIKE Administration Apixaban 2.5 mg 02/10/25 21:00 02/12/25 20:52 Apixaban 2.5 Mg Tablet PO 03/12/25 20:59 2.5 mg BID HEIKE Administration Bumetanide 1 mg 02/10/25 21:00 02/12/25 20:52 Bumetanide Inj 0.25 Mg/Ml Vial 4 Ml IVP 03/12/25 20:59 1 mg BID HEIKE Administration Carvedilol 12.5 mg 02/12/25 17:30 02/12/25 17:20 Carvedilol 12.5 Mg Tablet PO 03/14/25 17:29 12.5 mg BIDWM HEIKE Administration Folic Acid 1 mg 02/10/25 22:00 02/13/25 05:24 Folic Acid 1 Mg Tablet PO 03/12/25 21:59 1 mg TID HEIKE Administration Guaifenesin 600 mg 02/10/25 21:00 02/12/25 20:53 Guaifenesin Er 600 Mg Tabcr PO 03/12/25 20:59 600 mg BID HEIKE Administration Heparin Sodium (Porcine) 5,000 unit 02/10/25 21:00 02/12/25 20:53 Heparin Sod Inj 5000 Unit/Ml Vial SC 02/24/25 20:59 5,000 unit BID HEIKE Administration Hydroxyurea 1,000 mg 02/10/25 21:00 02/12/25 20:53 Hydroxyurea 500 Mg Capsule PO 03/12/25 20:59 1,000 mg HS HEIKE Administration Azithromycin 500 mg/ Sodium 250 mls @ 250 mls/hr 02/11/25 21:00 02/12/25 20:52 Chloride IV 02/18/25 20:59 250 mls/hr QDAY@2100 HEIKE Administration Ceftriaxone Sodium/Dextrose 1 gm in 50 mls @ 100 mls/hr 02/11/25 09:00 02/12/25 15:46 Rocephin/D5w 1gm Iv Premix IV 02/18/25 08:59 100 mls/hr QDAY@1400 HEIKE Administration Montelukast Sodium 10 mg 02/11/25 21:00 02/12/25 20:53 Montelukast Sodium 10 Mg Tablet PO 03/13/25 20:59 10 mg HS HEIKE Administration Home Medication- 600 mg 02/11/25 09:00 02/12/25 11:44 Please Speak With PO 03/13/25 08:59 Not Given Patient Caregiver To QDAY HEIKE Have Rx Brought To [facility] Ondansetron HCl 4 mg 02/10/25 17:59 Ondansetron Inj 2 Mg/Ml Inj 2 Ml IV 03/12/25 17:58 Q6H PRN NAUSEA OR VOMITING Protocol Pantoprazole Sodium 40 mg 02/11/25 09:00 02/12/25 09:05 Pantoprazole 40 Mg Tablet PO 03/13/25 08:59 40 mg QDAY HEIKE Administration Vitamin D 5,000 iu 02/11/25 09:00 02/12/25 09:04 Cholecalciferol (Vitamin D3) 1,000 Iu Tablet PO 03/13/25 08:59 5,000 iu QDAY HEIKE Administration Plan Shereen Mccormack is an 84-year-old female with a past medical history of CAD status post stents, HFpEF (6 5% on 04/2023), A-fib on Eliquis, CVA 2018, polycythemia vera, pulmonary fibrosis on 2 L home O2 (baseline SpO2 95%), hypertension, gout, chronic UTIs who presents on 02/10 with worsening shortness of breath and lower extremity edema and admitted for pneumonia and CHF exacerbation #Community acquired pneumonia Presented to ED on 12/07/2024 for SOB and CXR at that time showed possible pneumonia in right base and discharged with 7 days levofloxacin. Also seen by PCP afterwards and prescribed cefuroxime on 01/31 for 10 days. Symptoms initially improved but over the past week SOB worsened with associated nonproductive cough. Denies fever, chills, sweats. States that she is been requiring more oxygen as of late. Normally on 2 L but has had to go up as high as 4 L of home O2 and desaturates into the mid 80s with minimal exertion. WBC 15, CXR showed moderate CHF, pneumonia of right base, moderate bilateral pleural effusions, 26 mm masslike area in left lung. Blood cultures negative in the last 24 hours ? Ceftriaxone and azithromycin (02/10-) ? Follow-up blood cultures #Acute decompensated CHF exacerbation #HFpEF (EF 60-65% in 2022) #NSTEMI II, demand ischemia Noticed worsening lower extremity edema and does endorse orthopnea but no PND in association with above symptoms. BNP 633, troponin 0.052. Echo showed: Aortic root mildly dilated, aortic valve leaflets are heavily calcified with severe calcific aortic stenosis at opening, heavy mitral annulus calcification mitral valve thickening with evidence of mild to moderate 1-2+ mitral regurgitation, normal-sized left ventricle with evidence of concentric left ventricle hypertrophy with normal left ventricle wall motion normal ejection fraction of 65%, mild RV ventricle dilatuion with RV dysfunction, significant biatrial enlargement, moderate tricuspid regurgitation, and inferior vena cava is dilated. Removed 1.6L pleural fluid from right lung. Fluid analysis showed transudative effusion. ? Cardiology consulted, appreciate recommendations ? Bumex 1 mg IV twice daily ? Hold home coreg in setting of CHF exacerbation ? 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 Duonebs q4h prn ? Montelukast 10 mg p.o. HS ? Outpatient follow-up ? Recommend outpatient referral to pulmonology #CAD s/p stents #CVA ? Patient states she does not take aspirin or statin and not on home medication list #A-fib on eliquis ? Eliquis 2.5 mg p.o. BID #Polycythemia vera ? Hydroxyurea 1,000 mg p.o. HS #GERD ? Pantoprazole 40 mg p.o. daily #Hypertension ? Pending med rec #Gout ? Allopurinol 300 mg p.o. daily Hospital management: Disposition: CAP pneumonia on IV abx, CHF exacerbation Fluids: none Diet: cardiac, low sodium diet Lines: PIV DVT prophylaxis: heparin SC BID GI prophylaxis: pantoprazole p.o. CODE STATUS: DNR Patient's plan and care discussed with my attending, Dr. Monserrat Chowdhury MD PGY-2 Attending Provider Attestation/Addendum I attest that I was physically present for the evaluation, physical examination, lab and imaging review of the patient with the residents. I discussed the case with the residents and agree with the findings and plans of care as documented above. At bedside today, patient states she is feeling better, her shortness of breath have improved. Patient had thoracentesis yesterday with removal of 1.6 L fluid, pleural fluid studies are suggestive of transudative effusion. Continues to be on Rocephin and azithromycin, pending culture results. Continues to be on diuresis with Bumex 1 mg twice daily, fluid restriction and low-sodium diet. Patient noted to have 26 mm left upper lobe mass on chest x-ray, informed the patient and her son about the mass in detail and need for further workup outpatient. Continues to be rate controlled on Eliquis and carvedilol. Cardiology following closely, plans to perform cardiac catheterization outpatient after discharge. Awaiting PT evaluation and liver ultrasound. Maynor German MD
[2025-02-13] MEDS: carVEDILOL 12.5 MG TABLET PO ×2 (09:21→17:15)
[2025-02-13] MEDS: Magnesium Sulfate 1 gm Ivpb 1 GM/100 ML BAG IV (09:22)
[2025-02-13] MEDS: guaiFENesin ER 600 MG TABCR PO ×2 (09:22→20:54)
[2025-02-13] MEDS: CHOLECALCIFEROL (Vitamin D3) 1,000 IU TABLET 5000 IU PO (09:22)
[2025-02-13] MEDS: allopurinoL 100 MG TABLET 300 MG PO (09:22)
[2025-02-13] MEDS: PANTOPRAZOLE 40 MG TABLET PO (09:22)
[2025-02-13] MEDS: APIXABAN 2.5 MG TABLET PO ×2 (09:22→20:54)
[2025-02-13] MEDS: POTASSIUM CHLORIDE 20 mEq TABCR PO (09:22)
[2025-02-13] MEDS: HEPARIN SOD INJ 5000 UNIT/ML VIAL SC (09:22)
[2025-02-13] MEDS: BUMETANIDE INJ 0.25 MG/ML VIAL 4 ML 1 MG IVP ×2 (09:23→20:54)
--- NOTE | 2025-02-13 10:00 | PC.SS ---
Update: Patient had fluid removed yesterday. Angiogram is pending.
[2025-02-13] MEDS: cefTRIAXone/D5w 1gm IV premix 1 GM/50 ML BAG IV (13:07)
--- NOTE | 2025-02-13 13:50 | ESPR_ITS ---
<Statement entered by Tiffani Fountain MD - 02/14/25 12:44> I personally examined evaluate the patient who has congestive heart failure with aortic stenosis and has fairly large right pleural effusion underwent thoracentesis successfully breathing improved a lot more than 1.5 L fluid was removed evaluate the patient with resident physician Dr. Hill agree with the treatment plan recommendation as documented patient will require cardiac workup as an outpatient for aortic stenosis assess if she is a candidate for TAVR procedure but no need to do angiogram or catheterization during this hospitalization Documentation for date of: 02/13/25 Subjective Subjective Interval history: Patient was seen and examined at the bedside. No acute overnight events. Patient underwent thoracocentesis yesterday with 1600 cc of fluid removal. Continue current management for pneumonia. Patient will need to have cardiac catheterization outpatient and possible TAVR. She is on Bumex 1 mg IV twice daily, her edema is improving. Carvedilol was resumed yesterday. Continue current regimen. Exam Vital Signs Temp Pulse Resp BP Pulse Ox O2 Del Method O2 Flow Rate 98.3 F 84 18 145/80 H 97 Nasal Cannula 2 02/13/25 12:00 02/13/25 12:13 02/13/25 12:13 02/13/25 12:00 02/13/25 12:13 02/13/25 12:00 02/13/25 12:13 Narrative Exam Gen: Well-developed and well-nourished female. HEENT: NCAT, PERRLA, EOMI, MMM, anicteric conjunctivae. CVS: normal S1 and S2. Irregularly irregular. Systolic murmur best heard over right sternal border. Resp: Decreased breath sounds over right lung. No rhonchi, rales, crackles or wheezing. Abd: soft, non-tender, non-distended. BS+ in all 4 quadrants. MSK: Good ROM in BUE & BLE. No rash. 2+ pitting edema BLE. Neuro: CN II-XII grossly intact. Strength 5/5 in BUE & BLE. Alert and oriented x3. Psych: appropriate mood and affect. Objective Labs 02/13/25 04:10 02/13/25 04:10 Labs: Laboratory Results - last 24 hr 02/12/25 02/13/25 15:50 04:10 WBC 13.0 H RBC 3.05 L Hgb 11.4 L Hct 34.8 L MCV 114 H MCH 37.4 H MCHC 32.8 RDW Std Deviation 64.3 H Plt Count 500 H Neut % (Auto) 92 H Lymph % (Auto) 4 L [place] % (Auto) 1 Eos % (Auto) 0 Baso % (Auto) 0 Neut # (Auto) 11.9 H Lymph # (Auto) 0.5 L [place] # (Auto) 0.2 Eos # (Auto) 0.0 Baso # (Auto) 0.1 Immature Gran # (Auto) 0.29 H Absolute Nucleated RBC 0.02 H Immature Gran % 2 H Nucleated RBC % 0 Sodium 133 L Potassium 3.8 Chloride 94 L Carbon Dioxide 32.7 H Anion Gap 6 L BUN 24 H Creatinine 0.8 Estim Creat Clear Calc 51.6 L eGFR > 60 BUN/Creatinine Ratio 30 H Glucose 100 Calculated Osmolality 270 L Calcium 8.7 Corrected Calcium 9.2 Phosphorus 3.5 Magnesium 1.9 Total Bilirubin 1.5 H AST 20 ALT 7 L Alkaline Phosphatase 43 L Total Protein 6.0 Albumin 3.4 Globulin 2.6 Albumin/Globulin Ratio 1.3 Pleural Color Yellow Pleural Appearance Clear Pleural WBC 144 Pleural RBC 0 Pleural Polynuclear WBC 40 Pleural Mononuclear WBC 60 Pleural Total Protein < 2.0 Pleural LDH 99 Pleural Glucose 132 Pleural Amylase 32 Quality Measures Quality Measures VTE prophylaxis Advance care planning discussed with:: patient Assessment & Plan Assessment Current Active Medications: Generic Name Dose Route Start Last Admin Trade Name Freq PRN Reason Stop Dose Admin Acetaminophen 650 mg 02/10/25 17:59 02/12/25 19:21 Acetaminophen 325 Mg Tablet PO 03/12/25 17:58 650 mg Q6H PRN Administration PAIN OR FEVER > 100.4 Albuterol/Ipratropium 3 ml 02/10/25 17:59 Albuterol/Ipratropium (Duoneb) Rt Luciana 3 Ml Nebu INH 03/12/25 18:59 Q4HRRT PRN shortness of breath, wheezing Allopurinol 300 mg 02/11/25 09:00 02/13/25 09:22 Allopurinol 100 Mg Tablet PO 03/13/25 08:59 300 mg QDAY HEIKE Administration Apixaban 2.5 mg 02/10/25 21:00 02/13/25 09:22 Apixaban 2.5 Mg Tablet PO 03/12/25 20:59 2.5 mg BID HEIKE Administration Bumetanide 1 mg 02/10/25 21:00 02/13/25 09:23 Bumetanide Inj 0.25 Mg/Ml Vial 4 Ml IVP 03/12/25 20:59 1 mg BID HEIKE Administration Carvedilol 12.5 mg 02/12/25 17:30 02/13/25 09:21 Carvedilol 12.5 Mg Tablet PO 03/14/25 17:29 12.5 mg BIDWM HEIKE Administration Folic Acid 1 mg 02/10/25 22:00 02/13/25 13:07 Folic Acid 1 Mg Tablet PO 03/12/25 21:59 1 mg TID HEIKE Administration Guaifenesin 600 mg 02/10/25 21:00 02/13/25 09:22 Guaifenesin Er 600 Mg Tabcr PO 03/12/25 20:59 600 mg BID HEIKE Administration Hydroxyurea 1,000 mg 02/10/25 21:00 02/12/25 20:53 Hydroxyurea 500 Mg Capsule PO 03/12/25 20:59 1,000 mg HS HEIKE Administration Azithromycin 500 mg/ Sodium 250 mls @ 250 mls/hr 02/11/25 21:00 02/12/25 20:52 Chloride IV 02/18/25 20:59 250 mls/hr QDAY@2100 HEIKE Administration Ceftriaxone Sodium/Dextrose 1 gm in 50 mls @ 100 mls/hr 02/11/25 09:00 02/13/25 13:07 Rocephin/D5w 1gm Iv Premix IV 02/18/25 08:59 100 mls/hr QDAY@1400 HEIKE Administration Montelukast Sodium 10 mg 02/11/25 21:00 02/12/25 20:53 Montelukast Sodium 10 Mg Tablet PO 03/13/25 20:59 10 mg HS HEIKE Administration Home Medication- 600 mg 02/11/25 09:00 02/13/25 09:23 Please Speak With PO 03/13/25 08:59 Not Given Patient Caregiver To QDAY HEIKE Have Rx Brought To [facility] Ondansetron HCl 4 mg 02/10/25 17:59 Ondansetron Inj 2 Mg/Ml Inj 2 Ml IV 03/12/25 17:58 Q6H PRN NAUSEA OR VOMITING Protocol Pantoprazole Sodium 40 mg 02/11/25 09:00 05/20/25 09:22 Pantoprazole 40 Mg Tablet PO 03/13/25 08:59 40 mg QDAY HEIKE Administration Vitamin D 5,000 iu 02/11/25 09:00 02/13/25 09:22 Cholecalciferol (Vitamin D3) 1,000 Iu Tablet PO 03/13/25 08:59 5,000 iu QDAY HEIKE Administration Plan Patient is 84 years old female with past medical history of CAD status post stents, HFpEF (65% on 04/2023), A-fib on Eliquis, CVA 2018, polycythemia vera, pulmonary fibrosis on 2 L home O2 (baseline SpO2 95%), hypertension, gout, chronic UTIs, aortic stenosis presented to the ED due to worsening shortness of breath over the last 2 weeks and was admitted for further management and evaluation. #Severe aortic stenosis. #HFpEF (EF 60-65% in 2022). Patient presented with chief complaint of shortness of breath worsening significantly over the last 2 weeks. On admission labs showed BNP 633, troponin 0.052. Prior echo in 2022 showed ejection fraction 65%. At home patient is taking carvedilol 12.5 mg twice daily, Bumex 1 mg daily. Echo showed Aortic root appears mildly dilated. Aortic valve leaflets are heavy calcification appears to have severe calcific aortic stenosis opening appears with only 1 to 2 mm in both parasternal long axis view and apical views. Peak aortic velocity measured 3.2 m/s but was not parallel to the jet most likely Mr. Severe calcific aortic stenosis. Heavy mitral annulus calcification mitral valve thickening with evidence of mild to moderate 1-2+ mitral regurgitation. Normal- sized left ventricle with evidence of concentric left ventricle hypertrophy with normal left ventricle wall motion normal ejection fraction of 65%. RV is normal in size., right ventricle appears to be mildly dilated with RV dysfunction. The estimated right ventricular systolic pressure, 56 mmHg. RAP 15. There is significant biatrial enlargement. Moderate tricuspid regurgitation. Inferior vena cava is dilated. Plan: ? Continue home Coreg 12.5 mg BID. ? Bumex 1 mg IV twice daily. ? Strict I/O's, fluid restriction (1.5 L/day), low sodium diet, and daily weights. ? Continue current management for pneumonia. Patient will need to have left heart catheterization outpatient after discharge due to severe aortic stenosis and possible need for TAVR. # Troponinemia. #CAD s/p stents placement. # History of CVA ? Patient states she does not take aspirin or statin and not on home medication list. ? Troponin peaked at 0.055 and down trended, last reading 0.047. #A-fib on Eliquis. -Patient is irregularly irregular appears to be in A-fib, rate controlled at 100's. Plan: ? Continue home Eliquis 2.5 mg p.o. BID. #Polycytemia vera. - continue hydroxyuria. Management of other problems as per primary team. Plan of care discussed with attending Dr. Fountain. Sergio Herbert MD, PGY 2. Disclaimer: This note was dictated by speech recognition. Minor errors in alternative dispute resolution mediator may be present due to voice recognition software.
--- NOTE | 2025-02-13 14:29 | PC.SS ---
Update: Cardiology recommendations pending. Possible liver ultrasound tomorrow. D/C tomorrow.
--- NOTE | 2025-02-13 14:40 | XR_ITS ---
Examination: Abdomen sonogram, Limited Date and time of exam: February 13, 2025 1628 hours INDICATIONS: Elevated total bilirubin on laboratory examination today Technique: Real-time godoy scale transabdominal sonographic images of the upper abdomen obtained. Findings: Absent gallbladder Common bile duct 0.5 cm no stones Pancreatic head 1.4 cm Liver 17.7 cm smooth contour trace ascites Normal hepatopedal portal venous flow Patent IVC IMPRESSION: Normal common bile duct Moderate hepatomegaly Trace ascites
--- NOTE | 2025-02-13 16:31 | PC.PT ---
Patient is safe to ambulate to the bathroom with a FWW and 1 staff assist along with her O2. RN made aware.
[2025-02-13] MEDS: AZITHROMYCIN INJ 500 MG in SODIUM CHLORIDE 0.9% 250 ML 250 ML 250 MG IV (20:54)
[2025-02-13] MEDS: HYDROXYUREA 500 MG CAPSULE 1000 MG PO (20:54)
[2025-02-13] MEDS: MONTELUKAST SODIUM 10 MG TABLET PO (20:55)
[2025-02-14] VITALS (13 sets, daily range): BP systolic 108–158; BP diastolic 55–79; PULSE 72–94; RESP 16–25; TEMP 36.1–36.4; O2SAT 95–99; BMI 21.7
--- NOTE | 2025-02-14 04:16 | PC.NURSE ---
gave report to Will RN for patient transfer to room 364.
[2025-02-14] MEDS: FOLIC ACID 1 MG TABLET PO ×3 (05:07→21:00)
[2025-02-14 06:01] LABS: Basophils % (Auto) 0 % (0-2.5); Eosinophils % (Auto) 0 % (0-10); Hemoglobin 10.4 g/dL (12.0-16.0); Immature Granulocytes % (Auto) 2 % (0-0); Immature Granulocytes Auto 0.23 Thou/mm3 (0.00-0.00); Lymphocytes # (Auto) 0.6 Thou/mm3 (1.0-4.8); Lymphocytes % (Auto) 5 % (10-50); Mean Corpuscular HGB Conc 33.5 g/dl (31.0-37.0); Mean Corpuscular Hemoglobin 37.8 pg (25.0-35.0); Mean Corpuscular Volume 113 fL (80-100); Monocytes # (Auto) 0.2 Thou/mm3 (0.0-0.8); Monocytes % (Auto) 2 % (0-12); Neutrophils # (Auto) 11.5 Thou/mm3 (1.8-7.7); Neutrophils % (Auto) 92 % (37-80); Nucleated Red Blood Cell # 0.02 Thou/mm3 (0.00-0.00); Nucleated Red Blood Cell % 0 /100 WBC (0); Platelet Count 370 Thou/mm3 (140-440); RDW Standard Deviation 63.9 fL (36.4-46.3); Red Blood Count 2.75 Miln/mm3 (4.00-5.20); White Blood Count 12.6 Thou/mm3 (3.6-11.0)
[2025-02-14 06:35] LABS: Alanine Aminotransferase < 7 U/L (10-49); Albumin, Serum 3.2 gm/dL (3.4-4.8); Albumin/Globulin Ratio 1.3 (1.2-2.2); Alkaline Phosphatase 36 U/L (46-116); Anion Gap 8 (7-16); Aspartate Amino Transferase 23 U/L (0-34); BUN/Creatinine Ratio 33 Ratio (12-20); Blood Urea Nitrogen 30 mg/dL (9-23); Calcium 8.4 mg/dL (8.3-10.6); Carbon Dioxide 32.4 mMol/L (20.0-31.0); Chloride 93 mMol/L (98-107); Creatinine (Component) 0.9 mg/dL (0.6-1.3); Estimated Creatinine Clearance 40.2 mL/min (>60); Globulin 2.4 gm/dL (2.3-3.5); Glucose 101 mg/dL (74-106); Magnesium 1.6 mg/dL (1.6-2.6); Osmolality,Calculated 272 (275-295); Phosphorous 3.4 mg/dL (2.4-5.1); Potassium 4.2 mMol/L (3.4-5.1); Sodium 133 mMol/L (136-145); Total Protein 5.6 gm/dL (5.7-8.2); eGFR > 60 See Note
[2025-02-14] MEDS: carVEDILOL 12.5 MG TABLET PO ×2 (07:22→17:42)
[2025-02-14] MEDS: CHOLECALCIFEROL (Vitamin D3) 1,000 IU TABLET 5000 IU PO (08:59)
[2025-02-14] MEDS: guaiFENesin ER 600 MG TABCR PO ×2 (08:59→20:55)
[2025-02-14] MEDS: APIXABAN 2.5 MG TABLET PO ×2 (09:00→20:55)
[2025-02-14] MEDS: allopurinoL 100 MG TABLET 300 MG PO (09:00)
[2025-02-14] MEDS: BUMETANIDE INJ 0.25 MG/ML VIAL 4 ML 1 MG IVP ×2 (09:00→20:55)
[2025-02-14] MEDS: Magnesium Sulfate 2 GM Ivpb 2 GM/50 ML BAG IV (09:14)
[2025-02-14] MEDS: PANTOPRAZOLE 40 MG TABLET PO (09:35)
--- NOTE | 2025-02-14 12:06 | PC.SS ---
Addendum entered by ANGEL Velez 02/14/25 16:55: Updated patient's son Sammy via phone call on current status for SNF placement as patient requested this. Patient requires authorization for placement. Sammy verbalized understanding. Addendum entered by ANGEL Velez 02/14/25 16:39: Provided SNF choices to patient, she selected [facility]. Reached out to Debo at [facility] to determine if she can begin insurance authorization process. Pending response. Addendum entered by ANGEL Velez 02/14/25 14:34: PASRR completed. Addendum entered by ANGEL Velez 02/14/25 12:22: SNF inquiry sent via [employer]. Pending responses. Addendum entered by ANGEL Velez 02/14/25 12:11: Per bedside RN Tiffanie, medical team to cancel DC orders. recommendation for SNF. Original Note: SS spoke with [facility] staff, they inform they can transport the patient before 1pm.
[2025-02-14] MEDS: cefTRIAXone/D5w 1gm IV premix 1 GM/50 ML BAG IV (13:07)
--- NOTE | 2025-02-14 13:10 | PD.RESPRO ---
Documentation for date of: 02/14/25 Subjective Subjective Interval history: No acute events overnight. Seen and examined at bedside patient does not have any complaints. Plan for discharge today but shares that she is worried going home to [facility] by herself and spoke to son over the phone who is also worried. Requested PT to reevaluate given falls that she has had when walking to and from the restroom given that she is on a diuretic and recommended to be discharged to intermediate facility. line out worker aware and working on insurances at this time. Exam Vital Signs Temp Pulse Resp BP Pulse Ox O2 Del Method O2 Flow Rate 97.3 F 83 20 129/66 96 Nasal Cannula 2 02/14/25 12:00 02/14/25 12:00 02/14/25 12:00 02/14/25 12:00 02/14/25 12:00 02/14/25 12:00 02/14/25 12:00 Narrative Exam General: AOx3, in mild acute distress, able to speak full sentences, 2 L NC HEENT: NC/AT, mucous membranes moist, bilateral sclera anicteric Cardiovascular: systolic murmur in left sternal border, irregular rhythm, S1/S2 present Pulmonary: diminished right lung sounds, crackles in left lung bases, no wheezing; 2 L NC Abdominal: soft, non-tender, non-distended, no rebound/guarding, normal bowel sounds present Musculoskeletal: normal ROM, 1+ BLE pitting edema Skin: shiny skin, missing toenails on bilateral feet, warm and dry, intact, no rashes Neuro: CN II-XII intact, no focal deficits Objective Labs 02/14/25 04:47 02/14/25 04:47 Labs: Laboratory Results - last 24 hr 02/14/25 04:47 WBC 12.6 H RBC 2.75 L Hgb 10.4 L Hct 31.0 L MCV 113 H MCH 37.8 H MCHC 33.5 RDW Std Deviation 63.9 H Plt Count 370 D Neut % (Auto) 92 H Lymph % (Auto) 5 L [place] % (Auto) 2 Eos % (Auto) 0 Baso % (Auto) 0 Neut # (Auto) 11.5 H Lymph # (Auto) 0.6 L [place] # (Auto) 0.2 Eos # (Auto) 0.0 Baso # (Auto) 0.0 Immature Gran # (Auto) 0.23 H Absolute Nucleated RBC 0.02 H Immature Gran % 2 H Nucleated RBC % 0 Sodium 133 L Potassium 4.2 Chloride 93 L Carbon Dioxide 32.4 H Anion Gap 8 BUN 30 H Creatinine 0.9 Estim Creat Clear Calc 40.2 L eGFR > 60 BUN/Creatinine Ratio 33 H Glucose 101 Calculated Osmolality 272 L Calcium 8.4 Corrected Calcium 9.0 Phosphorus 3.4 Magnesium 1.6 Total Bilirubin 1.0 D AST 23 ALT < 7 L Alkaline Phosphatase 36 L Total Protein 5.6 L Albumin 3.2 L Globulin 2.4 Albumin/Globulin Ratio 1.3 Quality Measures Quality Measures VTE prophylaxis Advance care planning discussed with:: patient and child Assessment & Plan Assessment Current Active Medications: Generic Name Dose Route Start Last Admin Trade Name Freq PRN Reason Stop Dose Admin Acetaminophen 650 mg 02/10/25 17:59 02/12/25 19:21 Acetaminophen 325 Mg Tablet PO 03/12/25 17:58 650 mg Q6H PRN Administration PAIN OR FEVER > 100.4 Albuterol/Ipratropium 3 ml 02/10/25 17:59 Albuterol/Ipratropium (Duoneb) Rt Luciana 3 Ml Nebu INH 03/12/25 18:59 Q4HRRT PRN shortness of breath, wheezing Allopurinol 300 mg 02/11/25 09:00 02/14/25 09:00 Allopurinol 100 Mg Tablet PO 03/13/25 08:59 300 mg QDAY HEIKE Administration Apixaban 2.5 mg 02/10/25 21:00 02/14/25 09:00 Apixaban 2.5 Mg Tablet PO 03/12/25 20:59 2.5 mg BID HEIKE Administration Bumetanide 1 mg 02/10/25 21:00 02/14/25 09:00 Bumetanide Inj 0.25 Mg/Ml Vial 4 Ml IVP 03/12/25 20:59 1 mg BID HEIKE Administration Carvedilol 12.5 mg 02/12/25 17:30 02/14/25 07:22 Carvedilol 12.5 Mg Tablet PO 03/14/25 17:29 12.5 mg BIDWM HEIKE Administration Folic Acid 1 mg 02/10/25 22:00 02/14/25 13:07 Folic Acid 1 Mg Tablet PO 03/12/25 21:59 1 mg TID HEIKE Administration Guaifenesin 600 mg 02/10/25 21:00 02/14/25 08:59 Guaifenesin Er 600 Mg Tabcr PO 03/12/25 20:59 600 mg BID HEIKE Administration Hydroxyurea 1,000 mg 02/10/25 21:00 02/13/25 20:54 Hydroxyurea 500 Mg Capsule PO 03/12/25 20:59 1,000 mg HS HEIKE Administration Azithromycin 500 mg/ Sodium 250 mls @ 250 mls/hr 02/11/25 21:00 02/13/25 20:54 Chloride IV 02/18/25 20:59 250 mls/hr QDAY@2100 HEIKE Administration Ceftriaxone Sodium/Dextrose 1 gm in 50 mls @ 100 mls/hr 02/11/25 09:00 02/14/25 13:07 Rocephin/D5w 1gm Iv Premix IV 02/18/25 08:59 100 mls/hr QDAY@1400 HEIKE Administration Montelukast Sodium 10 mg 02/11/25 21:00 02/13/25 20:55 Montelukast Sodium 10 Mg Tablet PO 03/13/25 20:59 10 mg HS HEIKE Administration Home Medication- 600 mg 02/11/25 09:00 02/14/25 09:33 Please Speak With PO 03/13/25 08:59 Not Given Patient Caregiver To QDAY HEIKE Have Rx Brought To [facility] Ondansetron HCl 4 mg 02/10/25 17:59 Ondansetron Inj 2 Mg/Ml Inj 2 Ml IV 03/12/25 17:58 Q6H PRN NAUSEA OR VOMITING Protocol Pantoprazole Sodium 40 mg 02/11/25 09:00 02/14/25 09:35 Pantoprazole 40 Mg Tablet PO 03/13/25 08:59 40 mg QDAY HEIKE Administration Vitamin D 5,000 iu 02/11/25 09:00 02/14/25 08:59 Cholecalciferol (Vitamin D3) 1,000 Iu Tablet PO 03/13/25 08:59 5,000 iu QDAY HEIKE Administration Plan Shereen Mccormack is an 84-year-old female with a past medical history of CAD status post stents, HFpEF (6 5% on 04/2023), A-fib on Eliquis, CVA 2017, polycythemia vera, pulmonary fibrosis on 2 L home O2 (baseline SpO2 95%), hypertension, gout, chronic UTIs who presents on 02/10 with worsening shortness of breath and lower extremity edema and admitted for pneumonia and CHF exacerbation #Community acquired pneumonia, suspect bacterial vs viral #Right-sided pleural effusion s/p thoracentesis Presented to ED on 12/07/2024 for SOB and CXR at that time showed possible pneumonia in right base and discharged with 7 days levofloxacin. Also seen by PCP afterwards and prescribed cefuroxime on 01/31 for 10 days. Symptoms initially improved but over the past week SOB worsened with associated nonproductive cough. Denies fever, chills, sweats. States that she is been requiring more oxygen as of late. Normally on 2 L but has had to go up as high as 4 L of home O2 and desaturates into the mid 80s with minimal exertion. WBC 15, CXR showed moderate CHF, pneumonia of right base, moderate bilateral pleural effusions, 26 mm masslike area in left lung. Status-post right-sided thoracentesis with removal of 1.6 L of fluid and transudative in nature per fluid analysis. ? Ceftriaxone and azithromycin (02/10-) ? Blood cultures: NGTD ? Medically cleared for discharge, currently awaiting SNF placement #Acute decompensated CHF exacerbation #HFpEF (EF 60-65% in 2022) #NSTEMI II, demand ischemia Noticed worsening lower extremity edema and does endorse orthopnea but no PND in association with above symptoms. BNP 633, troponin 0.052. Echo showed: Aortic root mildly dilated, aortic valve leaflets are heavily calcified with severe calcific aortic stenosis at opening, heavy mitral annulus calcification mitral valve thickening with evidence of mild to moderate 1-2+ mitral regurgitation, normal-sized left ventricle with evidence of concentric left ventricle hypertrophy with normal left ventricle wall motion normal ejection fraction of 65%, mild RV ventricle dilatuion with RV dysfunction, significant biatrial enlargement, moderate tricuspid regurgitation, and inferior vena cava is dilated. Removed 1.6L pleural fluid from right lung. Fluid analysis showed transudative effusion. ? Cardiology consulted, appreciate recommendations ? Bumex 1 mg IV twice daily ? Carvedilol 12.5 mg p.o. twice daily ? 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 Informed patient and patient's son on findings ? Patient can follow up outpatient for CT and biopsy if preferred #Pulmonary fibrosis on 2 L home O2 ? Duonebs q4h prn ? Montelukast 10 mg p.o. HS ? Outpatient follow-up ? Recommend outpatient referral to pulmonology #CAD s/p stents #CVA ? Patient states she does not take aspirin or statin and not on home medication list #A-fib on eliquis ? Eliquis 2.5 mg p.o. BID #Polycythemia vera ? Hydroxyurea 1,000 mg p.o. HS #GERD ? Pantoprazole 40 mg p.o. daily #Hypertension ? Pending med rec #Gout ? Allopurinol 300 mg p.o. daily Hospital management: Disposition: pending SNF placement Fluids: none Diet: cardiac, low sodium diet Lines: PIV DVT prophylaxis: heparin SC BID GI prophylaxis: pantoprazole p.o. CODE STATUS: DNR ----- Plan discussed with attending physician Dr. Monserrat Alvarez MD PGY-1 Internal Medicine Attending Provider Attestation/Addendum I attest that I was physically present for the evaluation, physical examination, lab and imaging review of the patient with the residents. I discussed the case with the residents and agree with the findings and plans of care as documented above. At bedside today, patient states he is feeling well and denies new complaints. Has been saturating well on 2 L nasal cannula. Lab results show improving WBC count. She also has improving bilirubin level. Liver ultrasound was done yesterday which only showed moderate hepatomegaly. PT was done, recommended continuation of physical therapy. Patient is medically stable for discharge, awaiting SNF placement. Maynor German MD
--- NOTE | 2025-02-14 13:19 | ESPR_ITS ---
<Statement entered by Tiffani Fountain MD - 02/15/25 13:01> I personally examined and evaluated the patient she is doing a lot better now does not complain of chest pain shortness of breath heart failure symptoms improved significantly pleural effusion was drained successfully. She does have severe aortic stenosis require workup later patient is clinically improved but she has generalized weakness fatigue and shortness of breath on minimal exertion due to conditioning issues will require physical therapy rehabilitation possible discharge to SNF [facility] facility for a week or so and I will see her for follow-up following discharge from SNF. Agree with the treatment plan recommendations probably by Dr. Hill PGY 2 will continue to monitor the patient thank you Documentation for date of: 02/14/25 Subjective Subjective Interval history: Patient was seen and examined at the bedside. No overnight events. She is doing better, her edema has improved. Vitals are stable. Patient is pending [facility] authorization, will need to follow up with Dr. Fountian in 1 week for possible left heart cath and further assessment for TAVR. Exam Vital Signs Temp Pulse Resp BP Pulse Ox O2 Del Method O2 Flow Rate 97.3 F 83 20 129/66 96 Nasal Cannula 2 02/14/25 12:00 02/14/25 12:00 02/14/25 12:00 02/14/25 12:00 02/14/25 12:00 02/14/25 12:00 02/14/25 12:00 Narrative Exam Gen: Well-developed and well-nourished female. HEENT: NCAT, PERRLA, EOMI, MMM, anicteric conjunctivae. CVS: normal S1 and S2. Irregularly irregular. Systolic murmur best heard over right sternal border. Resp: Decreased breath sounds over right lung. No rhonchi, rales, crackles or wheezing. Abd: soft, non-tender, non-distended. BS+ in all 4 quadrants. MSK: Good ROM in BUE & BLE. No rash. 1+ pitting edema BLE. Neuro: CN II-XII grossly intact. Strength 5/5 in BUE & BLE. Alert and oriented x3. Psych: appropriate mood and affect. Objective Labs 02/14/25 04:47 02/14/25 04:47 Labs: Laboratory Results - last 24 hr 02/14/25 04:47 WBC 12.6 H RBC 2.75 L Hgb 10.4 L Hct 31.0 L MCV 113 H MCH 37.8 H MCHC 33.5 RDW Std Deviation 63.9 H Plt Count 370 D Neut % (Auto) 92 H Lymph % (Auto) 5 L [place] % (Auto) 2 Eos % (Auto) 0 Baso % (Auto) 0 Neut # (Auto) 11.5 H Lymph # (Auto) 0.6 L [place] # (Auto) 0.2 Eos # (Auto) 0.0 Baso # (Auto) 0.0 Immature Gran # (Auto) 0.23 H Absolute Nucleated RBC 0.02 H Immature Gran % 2 H Nucleated RBC % 0 Sodium 133 L Potassium 4.2 Chloride 93 L Carbon Dioxide 32.4 H Anion Gap 8 BUN 30 H Creatinine 0.9 Estim Creat Clear Calc 40.2 L eGFR > 60 BUN/Creatinine Ratio 33 H Glucose 101 Calculated Osmolality 272 L Calcium 8.4 Corrected Calcium 9.0 Phosphorus 3.4 Magnesium 1.6 Total Bilirubin 1.0 D AST 23 ALT < 7 L Alkaline Phosphatase 36 L Total Protein 5.6 L Albumin 3.2 L Globulin 2.4 Albumin/Globulin Ratio 1.3 Quality Measures Quality Measures VTE prophylaxis Advance care planning discussed with:: patient Assessment & Plan Assessment Current Active Medications: Generic Name Dose Route Start Last Admin Trade Name Freq PRN Reason Stop Dose Admin Acetaminophen 650 mg 02/10/25 17:59 02/12/25 19:21 Acetaminophen 325 Mg Tablet PO 03/12/25 17:58 650 mg Q6H PRN Administration PAIN OR FEVER > 100.4 Albuterol/Ipratropium 3 ml 02/10/25 17:59 Albuterol/Ipratropium (Duoneb) Rt Luciana 3 Ml Nebu INH 03/12/25 18:59 Q4HRRT PRN shortness of breath, wheezing Allopurinol 300 mg 02/11/25 09:00 02/14/25 09:00 Allopurinol 100 Mg Tablet PO 03/13/25 08:59 300 mg QDAY HEIKE Administration Apixaban 2.5 mg 02/10/25 21:00 02/14/25 09:00 Apixaban 2.5 Mg Tablet PO 03/12/25 20:59 2.5 mg BID HEIKE Administration Bumetanide 1 mg 02/10/25 21:00 02/14/25 09:00 Bumetanide Inj 0.25 Mg/Ml Vial 4 Ml IVP 03/12/25 20:59 1 mg BID HEIKE Administration Carvedilol 12.5 mg 02/12/25 17:30 02/14/25 07:22 Carvedilol 12.5 Mg Tablet PO 03/14/25 17:29 12.5 mg BIDWM HEIKE Administration Folic Acid 1 mg 02/10/25 22:00 02/14/25 13:07 Folic Acid 1 Mg Tablet PO 03/12/25 21:59 1 mg TID HEIKE Administration Guaifenesin 600 mg 02/10/25 21:00 02/14/25 08:59 Guaifenesin Er 600 Mg Tabcr PO 03/12/25 20:59 600 mg BID HEIKE Administration Hydroxyurea 1,000 mg 02/10/25 21:00 02/13/25 20:54 Hydroxyurea 500 Mg Capsule PO 03/12/25 20:59 1,000 mg HS HEIKE Administration Azithromycin 500 mg/ Sodium 250 mls @ 250 mls/hr 02/11/25 21:00 02/13/25 20:54 Chloride IV 02/18/25 20:59 250 mls/hr QDAY@2100 HEIKE Administration Ceftriaxone Sodium/Dextrose 1 gm in 50 mls @ 100 mls/hr 02/11/25 09:00 02/14/25 13:07 Rocephin/D5w 1gm Iv Premix IV 02/18/25 08:59 100 mls/hr QDAY@1400 HEIKE Administration Montelukast Sodium 10 mg 02/11/25 21:00 02/13/25 20:55 Montelukast Sodium 10 Mg Tablet PO 03/13/25 20:59 10 mg HS HEIKE Administration Home Medication- 600 mg 02/11/25 09:00 02/14/25 09:33 Please Speak With PO 03/13/25 08:59 Not Given Patient Caregiver To QDAY HEIKE Have Rx Brought To [facility] Ondansetron HCl 4 mg 02/10/25 17:59 Ondansetron Inj 2 Mg/Ml Inj 2 Ml IV 03/12/25 17:58 Q6H PRN NAUSEA OR VOMITING Protocol Pantoprazole Sodium 40 mg 02/11/25 09:00 02/14/25 09:35 Pantoprazole 40 Mg Tablet PO 03/13/25 08:59 40 mg QDAY HEIKE Administration Vitamin D 5,000 iu 02/11/25 09:00 02/14/25 08:59 Cholecalciferol (Vitamin D3) 1,000 Iu Tablet PO 03/13/25 08:59 5,000 iu QDAY HEIKE Administration Plan Patient is 84 years old female with past medical history of CAD status post stents, HFpEF (65% on 04/2023), A-fib on Eliquis, CVA 2018, polycythemia vera, pulmonary fibrosis on 2 L home O2 (baseline SpO2 95%), hypertension, gout, chronic UTIs, aortic stenosis presented to the ED due to worsening shortness of breath over the last 2 weeks and was admitted for further management and evaluation. #Severe aortic stenosis. #HFpEF (EF 60-65% in 2022). Patient presented with chief complaint of shortness of breath worsening significantly over the last 2 weeks. On admission labs showed BNP 633, troponin 0.052. Prior echo in 2022 showed ejection fraction 65%. At home patient is taking carvedilol 12.5 mg twice daily, Bumex 1 mg daily. Echo showed Aortic root appears mildly dilated. Aortic valve leaflets are heavy calcification appears to have severe calcific aortic stenosis opening appears with only 1 to 2 mm in both parasternal long axis view and apical views. Peak aortic velocity measured 3.2 m/s but was not parallel to the jet most likely Mr. Severe calcific aortic stenosis. Heavy mitral annulus calcification mitral valve thickening with evidence of mild to moderate 1-2+ mitral regurgitation. Normal- sized left ventricle with evidence of concentric left ventricle hypertrophy with normal left ventricle wall motion normal ejection fraction of 65%. RV is normal in size., right ventricle appears to be mildly dilated with RV dysfunction. The estimated right ventricular systolic pressure, 56 mmHg. RAP 15. There is significant biatrial enlargement. Moderate tricuspid regurgitation. Inferior vena cava is dilated. Plan: ? Continue home Coreg 12.5 mg BID. ? Bumex 1 mg IV twice daily. Can be discharged on Bumex 1 mg PO QD. ? Strict I/O's, fluid restriction (1.5 L/day), low sodium diet, and daily weights. ? Continue current management for pneumonia. Patient will need to have left heart catheterization outpatient after discharge due to severe aortic stenosis and possible need for TAVR. #Troponinemia. #CAD s/p stents placement. #History of CVA ? Patient states she does not take aspirin or statin and not on home medication list. ? Troponin peaked at 0.055 and down trended, last reading 0.047. #A-fib on Eliquis. -Patient is irregularly irregular appears to be in A-fib, rate controlled at 100's. Plan: ? Continue home Eliquis 2.5 mg PO BID and Coreg 12.5 mg PO BID. #Polycytemia vera. - continue home hydroxyuria. Management of other problems as per primary team. Plan of care discussed with attending Dr. Fountain. Sergio Herbert MD, PGY 2. Disclaimer: This note was dictated by speech recognition. Minor errors in fiber drier operator may be present due to voice recognition software.
[2025-02-14] MEDS: MONTELUKAST SODIUM 10 MG TABLET PO (20:54)
[2025-02-14] MEDS: HYDROXYUREA 500 MG CAPSULE 1000 MG PO (20:55)
[2025-02-14] MEDS: AZITHROMYCIN INJ 500 MG in SODIUM CHLORIDE 0.9% 250 ML 250 ML 250 MG IV (20:58)
[2025-02-14] MEDS: ACETAMINOPHEN 325 MG TABLET 650 MG PO (22:07)
[2025-02-15] VITALS (11 sets, daily range): BP systolic 114–156; BP diastolic 57–77; PULSE 67–81; RESP 15–20; TEMP 36.1–36.9; O2SAT 95–99; BMI 14.0
[2025-02-15 05:53] LABS: Basophils # (Auto) 0.1 Thou/mm3 (0.0-0.2); Basophils % (Auto) 0 % (0-2.5); Eosinophils # (Auto) 0.1 Thou/mm3 (0.0-0.5); Eosinophils % (Auto) 1 % (0-10); Hematocrit 30.5 % (36.0-46.0); Hemoglobin 10.3 g/dL (12.0-16.0); Immature Granulocytes % (Auto) 2 % (0-0); Immature Granulocytes Auto 0.25 Thou/mm3 (0.00-0.00); Lymphocytes # (Auto) 0.6 Thou/mm3 (1.0-4.8); Lymphocytes % (Auto) 4 % (10-50); Mean Corpuscular HGB Conc 33.8 g/dl (31.0-37.0); Mean Corpuscular Hemoglobin 36.8 pg (25.0-35.0); Mean Corpuscular Volume 109 fL (80-100); Monocytes # (Auto) 0.2 Thou/mm3 (0.0-0.8); Monocytes % (Auto) 2 % (0-12); Neutrophils # (Auto) 11.9 Thou/mm3 (1.8-7.7); Neutrophils % (Auto) 91 % (37-80); Nucleated Red Blood Cell % 0 /100 WBC (0); Platelet Count 305 Thou/mm3 (140-440); RDW Standard Deviation 62.1 fL (36.4-46.3); White Blood Count 13.1 Thou/mm3 (3.6-11.0)
[2025-02-15] MEDS: FOLIC ACID 1 MG TABLET PO ×2 (05:56→14:58)
[2025-02-15 06:06] LABS: Alanine Aminotransferase 8 U/L (10-49); Albumin, Serum 3.2 gm/dL (3.4-4.8); Albumin/Globulin Ratio 1.3 (1.2-2.2); Alkaline Phosphatase 35 U/L (46-116); Anion Gap 10 (7-16); Aspartate Amino Transferase 27 U/L (0-34); BUN/Creatinine Ratio 30 Ratio (12-20); Bilirubin,Total 0.8 mg/dL (0.3-1.2); Blood Urea Nitrogen 24 mg/dL (9-23); Calcium 8.5 mg/dL (8.3-10.6); Calcium (Corrected) 9.1 mg/dL (8.5-10.1); Carbon Dioxide 29.2 mMol/L (20.0-31.0); Chloride 90 mMol/L (98-107); Creatinine (Component) 0.8 mg/dL (0.6-1.3); Estimated Creatinine Clearance 45.2 mL/min (>60); Globulin 2.4 gm/dL (2.3-3.5); Glucose 100 mg/dL (74-106); Magnesium 1.7 mg/dL (1.6-2.6); Osmolality,Calculated 262 (275-295); Phosphorous 3.9 mg/dL (2.4-5.1); Potassium 3.9 mMol/L (3.4-5.1); Sodium 129 mMol/L (136-145); Total Protein 5.6 gm/dL (5.7-8.2); eGFR > 60 See Note
[2025-02-15] MEDS: CHOLECALCIFEROL (Vitamin D3) 1,000 IU TABLET 5000 IU PO (08:18)
[2025-02-15] MEDS: PANTOPRAZOLE 40 MG TABLET PO (08:19)
[2025-02-15] MEDS: APIXABAN 2.5 MG TABLET PO (08:19)
[2025-02-15] MEDS: guaiFENesin ER 600 MG TABCR PO (08:19)
[2025-02-15] MEDS: carVEDILOL 12.5 MG TABLET PO ×2 (08:20→17:50)
[2025-02-15] MEDS: allopurinoL 100 MG TABLET 300 MG PO (08:20)
[2025-02-15] MEDS: BUMETANIDE INJ 0.25 MG/ML VIAL 4 ML 1 MG IVP (08:21)
--- NOTE | 2025-02-15 09:23 | ESPR_ITS ---
Documentation for date of: 02/15/25 Subjective Subjective Interval history: No acute overnight events. Seen and examined at bedside and states that her shortness of breath is improved compared to when she came in. Also states that she experiences intermittent dysuria but has finished course of antibiotics, including ceftriaxone. Vital signs stable, WBC waxes and wanes around 12-13, hemoglobin stable. Na noted to be slowly downtrending, now at 129 so will remove sodium restriction on diet and decrease bumex from BID to daily. Otherwise, still pending SNF authorization at this time. Exam Vital Signs Temp Pulse Resp BP Pulse Ox O2 Del Method O2 Flow Rate 97.3 F 80 18 156/76 H 99 Nasal Cannula 2 02/15/25 08:00 02/15/25 08:21 02/15/25 08:00 02/15/25 08:21 02/15/25 08:00 02/15/25 08:00 02/15/25 08:00 Narrative Exam General: AOx3, in mild acute distress, able to speak full sentences, 2 L NC HEENT: NC/AT, mucous membranes moist, bilateral sclera anicteric Cardiovascular: systolic murmur in left sternal border, irregular rhythm, S1/S2 present Pulmonary: diminished right lung sounds, crackles in left lung bases, no wheezing; 2 L NC Abdominal: soft, non-tender, non-distended, no rebound/guarding, normal bowel sounds present Musculoskeletal: normal ROM, 1+ BLE pitting edema Skin: shiny skin, missing toenails on bilateral feet, warm and dry, intact, no rashes Neuro: CN II-XII intact, no focal deficits Objective Labs 02/15/25 05:14 02/15/25 05:14 Labs: Laboratory Results - last 24 hr 02/15/25 05:14 WBC 13.1 H RBC 2.80 L Hgb 10.3 L Hct 30.5 L MCV 109 H MCH 36.8 H MCHC 33.8 RDW Std Deviation 62.1 H Plt Count 305 D Neut % (Auto) 91 H Lymph % (Auto) 4 L [place] % (Auto) 2 Eos % (Auto) 1 Baso % (Auto) 0 Neut # (Auto) 11.9 H Lymph # (Auto) 0.6 L [place] # (Auto) 0.2 Eos # (Auto) 0.1 Baso # (Auto) 0.1 Immature Gran # (Auto) 0.25 H Absolute Nucleated RBC 0.00 Immature Gran % 2 H Nucleated RBC % 0 Sodium 129 L Potassium 3.9 Chloride 90 L Carbon Dioxide 29.2 Anion Gap 10 BUN 24 H Creatinine 0.8 Estim Creat Clear Calc 45.2 L eGFR > 60 BUN/Creatinine Ratio 30 H Glucose 100 Calculated Osmolality 262 L Calcium 8.5 Corrected Calcium 9.1 Phosphorus 3.9 Magnesium 1.7 Total Bilirubin 0.8 AST 27 ALT 8 L Alkaline Phosphatase 35 L Total Protein 5.6 L Albumin 3.2 L Globulin 2.4 Albumin/Globulin Ratio 1.3 Quality Measures Quality Measures VTE prophylaxis Advance care planning discussed with:: patient Assessment & Plan Assessment Current Active Medications: Generic Name Dose Route Start Last Admin Trade Name Freq PRN Reason Stop Dose Admin Acetaminophen 650 mg 02/10/25 17:59 02/14/25 22:07 Acetaminophen 325 Mg Tablet PO 03/12/25 17:58 650 mg Q6H PRN Administration PAIN OR FEVER > 100.4 Albuterol/Ipratropium 3 ml 02/10/25 17:59 Albuterol/Ipratropium (Duoneb) Rt Luciana 3 Ml Nebu INH 03/12/25 18:59 Q4HRRT PRN shortness of breath, wheezing Allopurinol 300 mg 02/11/25 09:00 02/15/25 08:20 Allopurinol 100 Mg Tablet PO 03/13/25 08:59 300 mg QDAY HEIKE Administration Apixaban 2.5 mg 02/10/25 21:00 02/15/25 08:19 Apixaban 2.5 Mg Tablet PO 03/12/25 20:59 2.5 mg BID HEIKE Administration Azithromycin 500 mg 02/15/25 21:00 Azithromycin 250 Mg Tablet PO 02/18/25 20:59 QPM HEIKE Bumetanide 1 mg 02/10/25 21:00 02/15/25 08:21 Bumetanide Inj 0.25 Mg/Ml Vial 4 Ml IVP 03/12/25 20:59 1 mg BID HEIKE Administration Carvedilol 12.5 mg 02/12/25 17:30 02/15/25 08:20 Carvedilol 12.5 Mg Tablet PO 03/14/25 17:29 12.5 mg BIDWM HEIKE Administration Folic Acid 1 mg 02/10/25 22:00 02/15/25 05:56 Folic Acid 1 Mg Tablet PO 03/12/25 21:59 1 mg TID HEIKE Administration Guaifenesin 600 mg 02/10/25 21:00 02/15/25 08:19 Guaifenesin Er 600 Mg Tabcr PO 03/12/25 20:59 600 mg BID HEIKE Administration Hydroxyurea 1,000 mg 02/10/25 21:00 02/14/25 20:55 Hydroxyurea 500 Mg Capsule PO 03/12/25 20:59 1,000 mg HS HEIKE Administration Ceftriaxone Sodium/Dextrose 1 gm in 50 mls @ 100 mls/hr 02/11/25 09:00 02/14/25 13:07 Rocephin/D5w 1gm Iv Premix IV 02/18/25 08:59 100 mls/hr QDAY@1400 HEIKE Administration Montelukast Sodium 10 mg 02/11/25 21:00 02/14/25 20:54 Montelukast Sodium 10 Mg Tablet PO 03/13/25 20:59 10 mg HS HEIKE Administration Home Medication- 600 mg 02/11/25 09:00 02/14/25 09:33 Please Speak With PO 03/13/25 08:59 Not Given Patient Caregiver To QDAY HEIKE Have Rx Brought To [facility] Ondansetron HCl 4 mg 02/10/25 17:59 Ondansetron Inj 2 Mg/Ml Inj 2 Ml IV 03/12/25 17:58 Q6H PRN NAUSEA OR VOMITING Protocol Pantoprazole Sodium 40 mg 02/11/25 09:00 02/15/25 08:19 Pantoprazole 40 Mg Tablet PO 03/13/25 08:59 40 mg QDAY HEIKE Administration Vitamin D 5,000 iu 02/11/25 09:00 02/15/25 08:18 Cholecalciferol (Vitamin D3) 1,000 Iu Tablet PO 03/13/25 08:59 5,000 iu QDAY HEIKE Administration Plan Shereen Mccormack is an 84-year-old female with a past medical history of CAD status post stents, HFpEF (6 5% on 04/2023), A-fib on Eliquis, CVA 2018, polycythemia vera, pulmonary fibrosis on 2 L home O2 (baseline SpO2 95%), hypertension, gout, chronic UTIs who presents on 02/10 with worsening shortness of breath and lower extremity edema and admitted for pneumonia and CHF exacerbation #Community acquired pneumonia, suspect bacterial vs viral #Right-sided pleural effusion s/p thoracentesis Presented to ED on 12/07/2024 for SOB and CXR at that time showed possible pneumonia in right base and discharged with 7 days levofloxacin. Also seen by PCP afterwards and prescribed cefuroxime on 01/31 for 10 days. Symptoms initially improved but over the past week SOB worsened with associated nonproductive cough. Denies fever, chills, sweats. States that she is been requiring more oxygen as of late. Normally on 2 L but has had to go up as high as 4 L of home O2 and desaturates into the mid 80s with minimal exertion. WBC 15, CXR showed moderate CHF, pneumonia of right base, moderate bilateral pleural effusions, 26 mm masslike area in left lung. Status-post right-sided thoracentesis with removal of 1.6 L of fluid and transudative in nature per fluid analysis. Ceftriaxone and azithromycin (02/10-02/15) ? Medically cleared for discharge, currently awaiting SNF placement ? Blood cultures: NGTD #Acute decompensated CHF exacerbation #HFpEF (EF 60-65% in 2022) #NSTEMI II, demand ischemia Noticed worsening lower extremity edema and does endorse orthopnea but no PND in association with above symptoms. BNP 633, troponin 0.052. Echo showed: Aortic root mildly dilated, aortic valve leaflets are heavily calcified with severe calcific aortic stenosis at opening, heavy mitral annulus calcification mitral valve thickening with evidence of mild to moderate 1-2+ mitral regurgitation, normal-sized left ventricle with evidence of concentric left ventricle hypertrophy with normal left ventricle wall motion normal ejection fraction of 65%, mild RV ventricle dilatuion with RV dysfunction, significant biatrial enlargement, moderate tricuspid regurgitation, and inferior vena cava is dilated. Removed 1.6L pleural fluid from right lung. Fluid analysis showed transudative effusion. ? Cardiology consulted, appreciate recommendations ? Bumex 1 mg IV daily ? Carvedilol 12.5 mg p.o. twice daily ? Strict I/O's, fluid restriction (1.5 L/day), low sodium diet #Hypotonic hyponatremia ? Sodium restriction removed from diet ? 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 Informed patient and patient's son on findings ? Patient can follow up outpatient for CT and biopsy if preferred #Pulmonary fibrosis on 2 L home O2 ? Duonebs q4h prn ? Montelukast 10 mg p.o. HS ? Outpatient follow-up ? Recommend outpatient referral to pulmonology #CAD s/p stents #CVA ? Patient states she does not take aspirin or statin and not on home medication list #A-fib on eliquis ? Eliquis 2.5 mg p.o. BID #Polycythemia vera ? Hydroxyurea 1,000 mg p.o. HS #GERD ? Pantoprazole 40 mg p.o. daily #Hypertension ? Pending med rec #Gout ? Allopurinol 300 mg p.o. daily Hospital management: Disposition: pending SNF placement Fluids: none Diet: cardiac, low sodium diet Lines: PIV DVT prophylaxis: heparin SC BID GI prophylaxis: pantoprazole p.o. CODE STATUS: DNR ----- Plan discussed with attending physician Dr. Monserrat Alvarez MD PGY-1 Internal Medicine Attending Provider Attestation/Addendum I attest that I was physically present for the evaluation, physical examination, lab and imaging review of the patient with the residents. I discussed the case with the residents and agree with the findings and plans of care as documented above. At bedside today, patient is complaints. Saturating well on 2 L nasal cannula. Lab results have been stable except for mild hyponatremia, sodium of 129 today. Possibly secondary to aggressive diuresis, we will decrease her Bumex dosing from 1 mg twice daily to once daily. Patient is stable for discharge insurance authorization for SNF placement. Maynor German MD
--- NOTE | 2025-02-15 16:42 | PC.SS ---
Addendum entered by ANGLE Velez 02/15/25 16:55: PASRR sent via file exchange to [facility]. Addendum entered by ANGEL Velez 02/15/25 16:52: Bed side nurse Debo Ellison at [facility], patient son Sammy and patient updated with ETA 1800. Original Note: SS received a call from Debo at [facility] informing that insurance authorization for SNF was obtained. Notified patient's son Sammy to make aware, he is agreeable with d/c to SNF today. Medical team aware and DC orders are in. Patient requires transportation to be arranged as she is on 2L of O2. OC obtained by transfer nurse. ETA with [facility] 1800.
--- NOTE | 2025-02-15 17:22 | ESDS_ITS ---
Planned Discharge Date 02/15/25 DS: Providers Provider Date of admission: 02/10/25 17:54 Primary care physician: Burak Hebert MD Admitting Provider: Derick Gamez MD Attending Provider on Admission: Maynor German MD Consults: 02/10/25 18:07 Consult to Cardiology Stat Comment: CHF exacerbation Consulting Provider: Tiffani Fountain 02/11/25 03:36 Referral Wound Care Routine Comment: Instructions: new admit with blisters, some popped, on top of toes, bilateral 02/13/25 11:37 Referral Physical Therapy Routine Comment: Physician Instructions: Attending Provider on DC: Sharad Alvarez MD Discharging Provider: Sharad Alvarez MD DS: Diagnosis Problem List Completed Was Problem List Reviewed/Reconciled?: Yes Hospital Course Hospital Course Hospital course: Shereen Mccormack is an 84-year-old female with a past medical history of CAD status post stents, HFpEF (60-65% on 04/2023), A-fib on Eliquis, CVA 2017, polycythemia vera, pulmonary fibrosis on 2 L home O2 (baseline SpO2 95%), hypertension, gout, chronic UTIs who presents on 02/10 with worsening shortness of breath and lower extremity edema. She presented to the ED on 12/07/2024 for shortness of breath and CXR at that time showed possible pneumonia in the right base and was discharged with 7 days of levofloxacin. She was also recently seen by her PCP who prescribed cefuroxime on 01/31 for 10 days. Symptoms initially improved after one week she has experienced worsening shortness of breath with associated nonproductive cough. Denies fever, chills, sweats. However, she has noticed worsening lower extremity edema and does endorse orthopnea but no PND. States that she is been requiring more oxygen as of late as well. She is normally on 2 L but has had to go up as high as 4 L of home O2 and desaturates into the mid 80s with minimal exertion. Per chart review, upon EMS arrival she was saturating in the 70s and after albuterol breathing treatment x 3 and 6 L NC, she improved to 90%. Throughout hospital course, no acute events occurred. She was started on received a 6-day course of ceftriaxone and azithromycin, and blood cultures obtained on 02/10 remain negative. WBC down trended from initial value on admission but remains slightly elevated, but did not spike any fevers. Patient additionally underwent right-sided thoracentesis with removal of 1.6 L of fluid and per fluid analysis, effusion transudative in nature. Given symptoms of decompensated heart failure, cardiology consulted and Bumex was increased from 1 mg daily to BID and eventually restarted her home Coreg after shortness of breath improved. Also noted to have a pulmonary mass measuring 26 mm in the left upper lobe and recommended to follow-up outpatient for CT-guided biopsy. Patient eventually returned to her baseline oxygen requirements of 2 L nasal cannula and was ready for discharge with home health PT. However, she and her son expressed concerns regarding frequent urination and difficulty with going back and forth to the restroom. Thus, upon PT reevaluation, recommended to be discharged to SNF. Will discharge with Bumex 1 mg daily per original dosage as she appeared euvolemic at time of discharge and will not require further antibiotics. 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 Continue taking all other home medications as prescribed ? Follow-up with PCP within 1-2 weeks of discharge ? Obtain referral for biopsy of lung mass as seen on imaging ? Please get a repeat BMP in 3-4 days ? Follow-up with cardiology within 1-2 weeks of discharge for possible cardiac catheterization and possible TAVR ? If you do not have a PCP, you can follow-up at the [facility] (you can call [phone] to make an appointment) ? If you wish to follow-up with Dr. Alvarez, schedule appointment on Wednesday afternoons ? Return to ED if symptoms worsen or recur ----- Plan discussed with attending physician Dr. Monserrat Alvarez MD PGY-1 Internal Medicine Time Spent with Patient Time attestation: Total time spent providing and/or coordinating discharge services: Time spent: Less than 30 minutes Exam Vital Signs Temp Pulse Resp BP Pulse Ox O2 Del Method O2 Flow Rate 98.3 F 67 18 114/57 L 99 Nasal Cannula 2 02/15/25 16:00 02/15/25 16:00 02/15/25 16:00 02/15/25 16:00 02/15/25 16:00 02/15/25 16:00 02/15/25 16:00 Narrative Exam General: AOx3, in mild acute distress, able to speak full sentences, 2 L NC HEENT: NC/AT, mucous membranes moist, bilateral sclera anicteric Cardiovascular: systolic murmur in left sternal border, irregular rhythm, S1/S2 present Pulmonary: clear to auscultation bilaterally, on 2 L NC Abdominal: soft, non-tender, non-distended, no rebound/guarding, normal bowel sounds present Musculoskeletal: normal ROM, 1+ BLE pitting edema Skin: shiny skin, missing toenails on bilateral feet, warm and dry, intact, no rashes Neuro: CN II-XII intact, no focal deficits Discharge Plan Plan Patient Disposition: Xfer Skilled Nsg Fac (SNF) Care Plan Goals: ? Continue taking all other home medications as prescribed ? Follow-up with PCP within 1-2 weeks of discharge ? Obtain referral for biopsy of lung mass as seen on imaging ? Please get a repeat BMP in 3-4 days ? Follow-up with cardiology within 1-2 weeks of discharge for possible cardiac catheterization and possible TAVR ? If you do not have a PCP, you can follow-up at the [facility] (you can call [phone] to make an appointment) ? If you wish to follow-up with Dr. Alvarez, schedule appointment on Wednesday afternoons ? Return to ED if symptoms worsen or recur Prescriptions/Referrals Prescriptions/Med Rec: Continued allopurinol 300 mg Tablet 300 mg PO QDAY alpha lipoic acid 600 mg Capsule 600 mg PO QDAY omeprazole 40 mg capsule,delayed release(/EC) 40 mg PO QDAY cetirizine 10 mg Tablet 10 mg PO QDAY folic acid 1 mg tablet 1 mg PO TID montelukast 10 mg tablet 10 mg PO QDAY benazepril 10 mg tablet 10 mg PO BID PRN (Reason: hypertension) Rx Instructions: sbp >145 cholecalciferol (vitamin D3) [Vitamin D3] 125 mcg (5,000 unit) Tablet 5,000 unit PO QDAY mirabegron [Myrbetriq] 50 mg tablet extended release 24 hr 50 mg PO QDAY carvedilol 12.5 mg tablet 12.5 mg PO BID nitroglycerin 0.4 mg tablet, sublingual 0.4 mg BUCCAL Q5M PRN (Reason: Chest Pain) Patient Comments: 1 TABLET SUBLINGUAL EVERY 5 MINUTES NEEDED CHEST PAIN MAXIMUM OF 3 DOSES 30 DAYS Eliquis 2.5 mg tablet 2.5 mg PO BID hydroxyurea 500 mg capsule 1,000 mg PO HS guaifenesin 600 mg Tablet Extended Release 600 mg PO BID bumetanide 1 mg tablet 1 mg PO QDAY albuterol sulfate 90 mcg/actuation Hfa Aerosol Inhaler 1 inh INHALATION BID Breztri Aerosphere 160-9-4.8 mcg/actuation HFA aerosol inhaler 2 inh inhalation BID Referrals: Burak Hebert MD [Primary Care Provider] - Patient/Caregiver Discharge Instructions Education Materials: Thoracentesis Dc Print Language: Maltese Stand Alone Forms: [facility]ena Award Info., Patient Portal Info Letter Discharge Order Discharge Orders: Discharge (Routine); Ordered 02/15/25 Ordered By: Yong Stoner Quality Discharge Quality Measures VTE prophylaxis Attestestation MD Attestation I attest that I was physically present for the evaluation, physical examination, lab and imaging review of the patient with the residents. I discussed the case with the residents and agree with the findings and plans of care as documented above. Maynor German MD
--- NOTE | 2025-02-15 17:26 | ESPR_ITS ---
<Statement entered by Tiffani Fountain MD - 02/16/25 09:01> The patient is clinically doing well continues to improve congestive heart failure symptom improved not have any chest pain or shortness of breath has severe aortic stenosis will be addressed as an outpatient patient still generally weak recommended rehabilitation for a week or so awaiting the transfer to group home facility patient appears clinically well compensated reduce the dose of Bumex to 1 mg which is appropriate Documentation for date of: 02/15/25 Subjective Subjective Interval history: Patient was seen and examined at the bedside. No acute overnight events. She has no new complaints today. Here Bumex was decreased to 1 mg once a day, patient appears to be euvolemic. Patient is pending placement for SNF. Continue current management. Can be discharged on home medications. Exam Vital Signs Temp Pulse Resp BP Pulse Ox O2 Del Method O2 Flow Rate 98.3 F 67 18 114/57 L 99 Nasal Cannula 2 02/15/25 16:00 02/15/25 16:00 02/15/25 16:00 02/15/25 16:00 02/15/25 16:00 02/15/25 16:00 02/15/25 16:00 Narrative Exam Gen: Well-developed and well-nourished female. HEENT: NCAT, PERRLA, EOMI, MMM, anicteric conjunctivae. CVS: normal S1 and S2. Irregularly irregular. Systolic murmur best heard over right sternal border. Resp: Decreased breath sounds over right lung. No rhonchi, rales, crackles or wheezing. Abd: soft, non-tender, non-distended. BS+ in all 4 quadrants. MSK: Good ROM in BUE & BLE. No rash. 1+ pitting edema BLE. Neuro: CN II-XII grossly intact. Strength 5/5 in BUE & BLE. Alert and oriented x3. Psych: appropriate mood and affect. Objective Labs 02/15/25 05:14 02/15/25 05:14 Labs: Laboratory Results - last 24 hr 02/15/25 05:14 WBC 13.1 H RBC 2.80 L Hgb 10.3 L Hct 30.5 L MCV 109 H MCH 36.8 H MCHC 33.8 RDW Std Deviation 62.1 H Plt Count 305 D Neut % (Auto) 91 H Lymph % (Auto) 4 L Harlan % (Auto) 2 Eos % (Auto) 1 Baso % (Auto) 0 Neut # (Auto) 11.9 H Lymph # (Auto) 0.6 L Harlan # (Auto) 0.2 Eos # (Auto) 0.1 Baso # (Auto) 0.1 Immature Gran # (Auto) 0.25 H Absolute Nucleated RBC 0.00 Immature Gran % 2 H Nucleated RBC % 0 Sodium 129 L Potassium 3.9 Chloride 90 L Carbon Dioxide 29.2 Anion Gap 10 BUN 24 H Creatinine 0.8 Estim Creat Clear Calc 45.2 L eGFR > 60 BUN/Creatinine Ratio 30 H Glucose 100 Calculated Osmolality 262 L Calcium 8.5 Corrected Calcium 9.1 Phosphorus 3.9 Magnesium 1.7 Total Bilirubin 0.8 AST 27 ALT 8 L Alkaline Phosphatase 35 L Total Protein 5.6 L Albumin 3.2 L Globulin 2.4 Albumin/Globulin Ratio 1.3 Quality Measures Quality Measures VTE prophylaxis Advance care planning discussed with:: patient Assessment & Plan Assessment Current Active Medications: Generic Name Dose Route Start Last Admin Trade Name Freq PRN Reason Stop Dose Admin Acetaminophen 650 mg 02/10/25 17:59 02/14/25 22:07 Acetaminophen 325 Mg Tablet PO 03/12/25 17:58 650 mg Q6H PRN Administration PAIN OR FEVER > 100.4 Albuterol/Ipratropium 3 ml 02/10/25 17:59 Albuterol/Ipratropium (Duoneb) Rt Luciana 3 Ml Nebu INH 03/12/25 18:59 Q4HRRT PRN shortness of breath, wheezing Allopurinol 300 mg 02/11/25 09:00 02/15/25 08:20 Allopurinol 100 Mg Tablet PO 03/13/25 08:59 300 mg QDAY HEIKE Administration Apixaban 2.5 mg 02/10/25 21:00 02/15/25 08:19 Apixaban 2.5 Mg Tablet PO 03/12/25 20:59 2.5 mg BID HEIKE Administration Bumetanide 1 mg 02/16/25 09:00 Bumetanide Inj 0.25 Mg/Ml Vial 4 Ml IVP 03/18/25 08:59 QDAY HEIKE Carvedilol 12.5 mg 02/12/25 17:30 02/15/25 08:20 Carvedilol 12.5 Mg Tablet PO 03/14/25 17:29 12.5 mg BIDWM HEIKE Administration Folic Acid 1 mg 02/10/25 22:00 02/15/25 14:58 Folic Acid 1 Mg Tablet PO 03/12/25 21:59 1 mg TID HEIKE Administration Guaifenesin 600 mg 02/10/25 21:00 02/15/25 08:19 Guaifenesin Er 600 Mg Tabcr PO 03/12/25 20:59 600 mg BID HEIKE Administration Hydroxyurea 1,000 mg 02/10/25 21:00 02/14/25 20:55 Hydroxyurea 500 Mg Capsule PO 03/12/25 20:59 1,000 mg HS HEIKE Administration Montelukast Sodium 10 mg 02/11/25 21:00 02/14/25 20:54 Montelukast Sodium 10 Mg Tablet PO 03/13/25 20:59 10 mg HS HEIKE Administration Home Medication- 600 mg 02/11/25 09:00 02/15/25 09:00 Please Speak With PO 03/13/25 08:59 Not Given Patient Caregiver To QDAY HEIKE Have Rx Brought To [facility] Ondansetron HCl 4 mg 02/10/25 17:59 Ondansetron Inj 2 Mg/Ml Inj 2 Ml IV 03/12/25 17:58 Q6H PRN NAUSEA OR VOMITING Protocol Pantoprazole Sodium 40 mg 02/11/25 09:00 02/15/25 08:19 Pantoprazole 40 Mg Tablet PO 03/13/25 08:59 40 mg QDAY HEIKE Administration Vitamin D 5,000 iu 02/11/25 09:00 02/15/25 08:18 Cholecalciferol (Vitamin D3) 1,000 Iu Tablet PO 03/13/25 08:59 5,000 iu QDAY HEIKE Administration Plan Patient is 84 years old female with past medical history of CAD status post stents, HFpEF (65% on 04/2023), A-fib on Eliquis, CVA 2018, polycythemia vera, pulmonary fibrosis on 2 L home O2 (baseline SpO2 95%), hypertension, gout, chronic UTIs, aortic stenosis presented to the ED due to worsening shortness of breath over the last 2 weeks and was admitted for further management and evaluation. #Severe aortic stenosis. #HFpEF (EF 60-65% in 2022). Patient presented with chief complaint of shortness of breath worsening significantly over the last 2 weeks. On admission labs showed BNP 633, troponin 0.052. Prior echo in 2022 showed ejection fraction 65%. At home patient is taking carvedilol 12.5 mg twice daily, Bumex 1 mg daily. Echo showed Aortic root appears mildly dilated. Aortic valve leaflets are heavy calcification appears to have severe calcific aortic stenosis opening appears with only 1 to 2 mm in both parasternal long axis view and apical views. Peak aortic velocity measured 3.2 m/s but was not parallel to the jet most likely Mr. Severe calcific aortic stenosis. Heavy mitral annulus calcification mitral valve thickening with evidence of mild to moderate 1-2+ mitral regurgitation. Normal- sized left ventricle with evidence of concentric left ventricle hypertrophy with normal left ventricle wall motion normal ejection fraction of 65%. RV is normal in size., right ventricle appears to be mildly dilated with RV dysfunction. The estimated right ventricular systolic pressure, 56 mmHg. RAP 15. There is significant biatrial enlargement. Moderate tricuspid regurgitation. Inferior vena cava is dilated. Plan: ? Continue home Coreg 12.5 mg BID. ? Bumex 1 mg IV QD. Can be discharged on Bumex 1 mg PO QD. ? Strict I/O's, fluid restriction (1.5 L/day), low sodium diet, and daily weights. ? Continue current management for pneumonia. Patient will need to have left heart catheterization outpatient after discharge due to severe aortic stenosis and possible need for TAVR. #Troponinemia. #CAD s/p stents placement. #History of CVA ? Patient states she does not take aspirin or statin and not on home medication list. ? Troponin peaked at 0.055 and down trended, last reading 0.047. #A-fib on Eliquis. -Patient is irregularly irregular appears to be in A-fib, rate controlled at 100's. Plan: ? Continue home Eliquis 2.5 mg PO BID and Coreg 12.5 mg PO BID. #Polycytemia vera. - continue home hydroxyuria. Management of other problems as per primary team. Plan of care discussed with attending Dr. Fountain. Sergio Herbert MD, PGY 2. Disclaimer: This note was dictated by speech recognition. Minor errors in rubber and pounder may be present due to voice recognition software.
== END 2025-02-15 18:00 | disposition skilled nursing facility (03) | DRG 280 ==
LOC: SERX 17:04 → SERHOLD 18:14 → S2NX 23:24 → S3NX 02-14 04:46
PROVIDERS: Admitting Provider Student in an Organized Health Care Education/Training Program; Emergency Provider Emergency Medicine; PCP Specialist; Visit Provider Student in an Organized Health Care Education/Training Program
DX: I11.0 Hypertensive heart disease with heart failure (principal); I50.33 Acute on chronic diastolic (congestive) heart failure; I21.A1 Myocardial infarction type 2; J96.21 Acute and chronic respiratory failure with hypoxia; I48.20 Chronic atrial fibrillation, unspecified; J84.9 Interstitial pulmonary disease, unspecified; E87.1 Hypo-osmolality and hyponatremia; J91.8 Pleural effusion in other conditions classified elsewhere; D45 Polycythemia vera; I27.20 Pulmonary hypertension, unspecified; J84.10 Pulmonary fibrosis, unspecified; M10.9 Gout, unspecified; D53.9 Nutritional anemia, unspecified; I25.10 Atherosclerotic heart disease of native coronary artery without angina pectoris; Z95.5 Presence of coronary angioplasty implant and graft; Z86.73 Personal history of transient ischemic attack (TIA), and cerebral infarction without residual deficits; Z79.01 Long term (current) use of anticoagulants; K21.9 Gastro-esophageal reflux disease without esophagitis; Z66 Do not resuscitate; Z99.81 Dependence on supplemental oxygen; I08.0 Rheumatic disorders of both mitral and aortic valves; I44.4 Left anterior fascicular block; Z91.013 Allergy to seafood; Z75.1 Person awaiting admission to adequate facility elsewhere; Z79.899 Other long term (current) drug therapy; Z90.710 Acquired absence of both cervix and uterus
CPT/HCPCS: 36415; 71045; 76705; 80053; 80061; 82150; 82945; 83615; 83735; 83880; 84100; 84157; 84295; 84484; 85025; 85610; 85730; 87040; 87070; 87075; 87205; 87811; 89051; 93005; 93306; 94664; 96365; 96366; 96372; 96375; 97162; 99285; C1729; J0456; J0696; J1644; J1938; J3475; J3490; J7050; A9270

== ENCOUNTER 2025-03-07 13:49 | Inpatient (IN) | payer MEDICARE, SELFPAY ==
[2025-03-07] VITALS (14 sets, daily range): BP systolic 111–179; BP diastolic 64–99; PULSE 80–93; RESP 14–20; TEMP 36.2–36.7; O2SAT 91–98; BMI 24.2
--- NOTE | 2025-03-07 14:14 | EKG_ITS ---
[facility] Test Date: 2025-03-07 Pat Name: TORREY SALMON Department: Room: - Gender: Female Director Of Accounting: : 1940 Requested By: Charles Morocho Order Number: [id number] Reading MD: Charles Morocho Measurements Intervals [place] Rate: 91 P: CT: QRS: -70 QRSD: 102 T: 93 QT: 391 QTc: 481 Interpretive Statements ATRIAL FIBRILLATION LEFT ANTERIOR FASCICULAR BLOCK [QRS AXIS <= -45, QR IN I, RS IN II] POSSIBLE ANTERIOR MYOCARDIAL INFARCTION , OF INDETERMINATE AGE [30 ms Q WAVE IN V3/V4, OR R < 0.2 mV IN V4] Compared to ECG 02/10/2025 17:01:00 Myocardial infarct finding now present T-wave abnormality no longer present /store/S0/[id number].pdf
--- NOTE | 2025-03-07 14:14 | XR_ITS ---
Examination: AP chest single view Technique one AP portable upright chest single view Date and time: March 07, 2025 1507 hours Comparison February 12, 2025 INDICATIONS: Chest pain shortness of breath weakness today FINDINGS: Moderate CHF Mild enlargement cardiac contour Prominent vascular congestion with perihilar edema Consider superimposed pneumonia both lungs Pulmonary mass in the left midlung again noted, 19 mm Prominent osteopenia IMPRESSION: Moderate CHF Superimposed pneumonia both lungs Pulmonary mass left midlung measures actually smaller, 19 mm, compared to 28 mm on February 02, 2025
--- NOTE | 2025-03-07 14:17 | PD.EDADULT ---
ED General RME/HPI General Chief complaint: Syncope / Near Syncope Stated complaint: SYNCOPAL EPISODE Time Seen by Provider: 03/07/25 14:14 Arrival date/time: 03/07/25 13:49 RME / HPI RME / HPI narrative: DR. MOROCHO MAIN ED EVALUATION: 84 year old female presents to the Emergency Department BIBA with complaint of syncopal episode today. Patient comes from rehab center for a past stroke. Also, rehab was concerned for bilateral leg weakness. Patient reports right hand pain after fall last week. PMHx: CAD status post stents, HFpEF (65% on 04/2023), A-fib on Eliquis, CVA 2017, polycythemia vera, pulmonary fibrosis on 2 L home O2 (baseline SpO2 95%), hypertension, gout, chronic UTIs, aortic stenosis. Social Hx: No tobacco, alcohol, or substance use. Related Data Home Medications ?Medication ?Instructions ?Recorded ?Confirmed allopurinol 300 mg tablet 300 mg PO QDAY 10/11/18 02/10/25 alpha lipoic acid 600 mg capsule 600 mg PO QDAY 01/14/23 02/10/25 benazepril 10 mg tablet 10 mg PO BID PRN hypertension 01/14/23 02/11/25 carvedilol 12.5 mg tablet 12.5 mg PO BID 01/14/23 02/10/25 cetirizine 10 mg tablet 10 mg PO QDAY 01/14/23 02/10/25 cholecalciferol (vitamin D3) 125 5,000 unit PO QDAY 01/14/23 02/10/25 mcg (5,000 unit) tablet (Vitamin D3) folic acid 1 mg tablet 1 mg PO TID 01/14/23 02/10/25 mirabegron 50 mg tablet,extended 50 mg PO QDAY 01/14/23 02/10/25 release 24 hr (Myrbetriq) montelukast 10 mg tablet 10 mg PO QDAY 01/14/23 02/10/25 omeprazole 40 mg capsule,delayed 40 mg PO QDAY 01/14/23 02/10/25 release apixaban 2.5 mg tablet (Eliquis) 2.5 mg PO BID 01/15/23 02/10/25 nitroglycerin 0.4 mg sublingual 0.4 mg buccal Q5M PRN Chest Pain 01/15/23 02/11/25 tablet albuterol sulfate 90 mcg/actuation 1 inh inhalation BID 07/09/23 02/10/25 aerosol inhaler bumetanide 1 mg tablet 1 mg PO QDAY 07/09/23 02/10/25 guaifenesin 600 mg tablet,extended 600 mg PO BID 07/09/23 02/10/25 release hydroxyurea 500 mg capsule 1,000 mg PO HS 07/09/23 02/10/25 budesonide 160 mcg-glycopyr 9 2 inh inhalation BID 12/18/24 02/11/25 mcg-formot 4.8 mcg/actuation HFA inhaler (Breztri Aerosphere) Allergies Allergy/AdvReac Type Severity Reaction Status Date / Time iodine Allergy Severe Swelling Verified 02/10/25 15:35 of Lip/Tongue/Throat shellfish derived Allergy Severe Swelling Verified 02/10/25 15:35 of Lip/Tongue/Throat Review of Systems Review of Systems Systems Reviewed: All systems reviewed, normal except as documented Narrative Review of Systems: Constitutional: DENIES: fevers; Eyes: DENIES: loss of vision; Head/Ear/Nose: DENIES: loss of hearing. Throat: DENIES: dysphagia. Cardiovascular: DENIES: chest pain, dyspnea, or syncope. Respiratory: DENIES: shortness of breath; Gastrointestinal: DENIES: rectal bleeding or melena. Genitourinary: DENIES: dysuria (painful or difficult urination); Musculoskeletal: POSITIVES: right hand pain after fall last week Skin: DENIES: rash; Neurological: POSITIVES: syncopal episode; bilateral leg weakness Psychiatric: DENIES: recent major life stressor, emotional problem, illicit drug use or abuse; Endocrinology: DENIES: weight change,; Hematologic/Lymphatic: DENIES: abnormal bruising. Allergic/Immunologic: DENIES: urticaria (hives). Past Medical History Past Medical History NEUROLOGIC: Positive Neurological Disorders, Cerebrovascular Accident, Transient Ischemic Attacks (TIA) and Peripheral Neuropathy CARDIAC: Positive Cardiac Disorders, Myocardial Infarction, Cardiac Arrhythmia, Atrial Fibrillation, Angina, Coronary Artery Disease, Atherosclerotic Heart Disease, Aneurysm, Congestive Heart Failure, Edema, Deep Vein Thrombosis, Hypertension, Hypotension and Varicose Veins RESPIRATORY: Positive Asthma, Bronchitis and Pulmonary Fibrosis GASTROINTESTINAL: Positive Gastrointestinal Disorders, Gall Bladder Disease, Gastrointestinal Bleed, Ulcer, Hiatal Hernia and Gastroesophageal Reflux Disease GENITOURINARY: Positive Genitourinary Disorders and Kidney Stones MUSCULOSKELETAL: Positive Musculoskeletal Disorders, Muscular Dystrophy, Arthritis and Fibromyalgia ENT: Positive Cataracts and Deafness HEMATOLOGIC: Positive Blood Disorders and Clotting Problems OTHER HISTORY: Positive Autoimmune Disease, Falls, Chemotherapy, Chicken Pox and Cancer Family History FAMILY HISTORY: Positive Family Respiratory Disorders, Family Cardiac Disorders, Family Gastrointestinal Problems, Family Cancer and Family Surgery Surgical History SURGICAL: Positive Coronary Stent Social History SMOKING STATUS: Never smoker SUBSTANCE USE: does not use ALCOHOL: Never ED Exam Narrative Physical exam: Physical Exam: General: The vital signs were reviewed. The patient is non-toxic, in no apparent distress and appears healthy with a patent airway, no respiratory distress and has no apparent circulatory problems. Head & Scalp: Normocephalic, atraumatic. Face: Appears normal and is without lesions, deformity. Ears: Left external pinna appears normal. Right external pinna appears normal. Eyes: The sclera is anicteric. No obvious photophobia. The Left and Right Orbit/Lid/Conjunctiva appears normal without swelling, discoloration or injection. Nose: The nose is without deformity, discharge or tenderness; Throat: Appears normal. The mucous membranes are pink and moist without exudates, redness or mass seen. The tongue appears normal. Neck: The neck is supple and no apparent mass or adenopathy. Chest: The chest wall is normal in size and symmetry and has no chest wall tenderness or crepitus. The patient displays normal ventilator effort without retractions, accessory muscle use and has adequate air movement bilaterally with no wheezes and no rales. Cardiovascular: Regular rate and rhythm; No murmurs, rubs, or gallops; Gastrointestinal: The abdomen appears normal. No obvious hernias or mass. The abdomen is soft and benign, non-distended, with no pain, no guarding and no rebound tenderness. Bowel sounds are present and normal sounding. No CVA tenderness. Genitourinary: Back/Spine: Normal inspection nontender Extremities/Musculoskeletal/lymphatic: The right hand has ecchymosis and swelling especially in the fingers just distal to the MCP and the 2nd and 3rd fingers. There is some tenderness there there is no obvious deformity. The wrist is intact there is no snuffbox tenderness. The forearm elbow arm and shoulder clavicle on the right side are unremarkable. The left arm is unremarkable with full range of motion at all components. The bilateral upper and lower extremities are warm. There is no evidence of arterial insufficiency. There is no evidence of venous insufficiency/edema. The patient spontaneously moves bilateral upper and lower extremities with no pain and no limitation of movement. Except as pain and swelling to the right hand with decreased There is no apparent, injury or trauma. Skin: The skin is warm, dry and intact. No rashes. No petechia. No purpura. No abnormal bruising. The color is appropriate with no cyanosis. Mental status/Psychiatric: Mental status is appropriate for age. The patient has no apparent delusions, visual hallucinations, no apparent audible hallucinations. The patient has no apparent suicidal thoughts/ideation and no apparent homicidal thoughts/ideation. Neurological: The patient is awake, alert, interactive, cordial, cooperative and is oriented to name and situation. The patient follows commands and answers historical question with no impairment. There is no visual disturbance apparent. The pupils are equal and reactive bilaterally with normal eye movements and no diplopia The bilateral upper and lower extremities have normal strength, normal range of motion and normal functioning. The gait, station and balance were not tested due to acuity Course Quality Measures none Orders Category Date Time Status EKG (ED ONLY) *Do not use* NOW Care 03/07/25 14:[address] head/brain wo con Stat Exams 03/07/25 17:34 Taken EKG (ED Only) Stat Exams 03/07/25 14:14 Draft XR chest 1V portable Stat Exams 03/07/25 14:14 Completed XR hand comp RT min 3V Stat Exams 03/07/25 14:47 Completed B-Type Natriuretic Peptide Stat Lab 03/07/25 14:41 Completed Blood Culture (Lab) Stat Lab 03/07/25 14:36 Ordered CBC Stat Lab 03/07/25 14:41 Completed Comprehensive Metabolic Panel Stat Lab 03/07/25 14:41 Completed Drug Screen,Urine Stat Lab 03/07/25 15:45 Completed Lactate (Lactic Acid) Stat Lab 03/07/25 14:41 Completed Lipase Stat Lab 03/07/25 14:41 Completed Magnesium Stat Lab 03/07/25 14:41 Completed Troponin I Stat Lab 03/07/25 14:41 Completed Urinalysis Stat Lab 03/07/25 15:45 Completed Urinalysis, C/S if Indicated Stat Lab 03/07/25 15:45 Completed Urine Culture Stat Lab 03/07/25 15:45 Received Venous Blood Gas Stat Lab 03/07/25 14:41 Completed Furosemide Inj [Lasix Inj] Med 03/07/25 17:34 Discontinued 40 mg IVP X1 ONE Vital Signs Vital signs: Vital Signs Temperature 98.1 F 03/07/25 13:51 Pulse Rate 86 03/07/25 13:51 Respiratory Rate 16 03/07/25 13:51 Blood Pressure 179/99 H 03/07/25 13:51 Pulse Oximetry (%) 96 03/07/25 13:51 Oxygen Delivery Method Nasal Cannula 03/07/25 13:51 Oxygen Flow Rate 6 03/07/25 13:51 Discharge Plan Plan Patient Disposition: Admit Acute Care w/in Hospital Prescriptions/Referrals Prescriptions/Med Rec: No Action allopurinol 300 mg Tablet 300 mg PO QDAY alpha lipoic acid 600 mg Capsule 600 mg PO QDAY omeprazole 40 mg capsule,delayed release(DR/EC) 40 mg PO QDAY cetirizine 10 mg Tablet 10 mg PO QDAY folic acid 1 mg tablet 1 mg PO TID montelukast 10 mg tablet 10 mg PO QDAY benazepril 10 mg tablet 10 mg PO BID PRN (Reason: hypertension) Rx Instructions: sbp >145 cholecalciferol (vitamin D3) [Vitamin D3] 125 mcg (5,000 unit) Tablet 5,000 unit PO QDAY mirabegron [Myrbetriq] 50 mg tablet extended release 24 hr 50 mg PO QDAY carvedilol 12.5 mg tablet 12.5 mg PO BID nitroglycerin 0.4 mg tablet, sublingual 0.4 mg BUCCAL Q5M PRN (Reason: Chest Pain) Patient Comments: 1 TABLET SUBLINGUAL EVERY 5 MINUTES NEEDED CHEST PAIN MAXIMUM OF 3 DOSES 30 DAYS Eliquis 2.5 mg tablet 2.5 mg PO BID hydroxyurea 500 mg capsule 1,000 mg PO HS guaifenesin 600 mg Tablet Extended Release 600 mg PO BID bumetanide 1 mg tablet 1 mg PO QDAY albuterol sulfate 90 mcg/actuation Hfa Aerosol Inhaler 1 inh INHALATION BID Breztri Aerosphere 160-9-4.8 mcg/actuation HFA aerosol inhaler 2 inh inhalation BID Referrals: Burak Hebert MD [Primary Care Provider] - In 1 week Problem List Clinical Impression: Syncope, Congestive heart failure, Multiple falls, Multiple contusions, Hand injury, Bilateral leg weakness Patient/Caregiver Discharge Instructions Print Language: Georgian Stand Alone Forms: Mena Award Info., Patient Portal Info Letter MDM Narrative [facility] hospital course: I, Daxa Knapp, am scribing for and in the presence of Dr. Morocho. Patient 84-year-old whose in rehab who had a syncopal event while going to the bathroom. There was a short episode of LOC reported today. Patient does not recall that. She also had a similar event last week where she injured her right hand and has ecchymosis. Evidently she passed out or had some similar event then. Medical workup is ordered and pending. Clinical Information Provided by patient and EMS Medical Records Reviewed [facility] Meds/Rx Considered, not Ordered None Labs/Rad/Tests considered, not Ordered None Chronic Illness/Social Conditions Add or document further as needed: CAD status post stents, HFpEF (65% on 04/2023), A-fib on Eliquis, CVA 2017, polycythemia vera, pulmonary fibrosis on 2 L home O2 (baseline SpO2 95%), hypertension, gout, chronic UTIs, aortic stenosis. EKG Interpretation EKG #1: Date/time of EK03/07/25 1421 hours EKG interpretation: atrial fibrillation, rate 91, no STEMI Lab Interpretation Labs: see narrative above Imaging Imaging interpretation: see narrative above Radiology reports / interpretation(s): Procedure(s): XR chest 1V portable Accession Number(s): [id number] cc: Burak Hebert MD; Charles Morocho MD; Saeid Zavala MD~ Examination: AP chest single view Technique one AP portable upright chest single view Date and time: March 07, 2025 1507 hours Comparison February 12, 2025 INDICATIONS: Chest pain shortness of breath weakness today FINDINGS: Moderate CHF Mild enlargement cardiac contour Prominent vascular congestion with perihilar edema Consider superimposed pneumonia both lungs Pulmonary mass in the left midlung again noted, 19 mm Prominent osteopenia IMPRESSION: Moderate CHF Superimposed pneumonia both lungs Pulmonary mass left midlung measures actually smaller, 19 mm, compared to 28 mm on February 02, 2025 Dictated By: Saeid Zavala MD Procedure(s): XR hand comp RT min 3V Accession Number(s): [id number] cc: Burak Hebert MD; Charles Morocho MD; Saeid Zavala MD~ Examination: Hand, right 3 views Technique: Hand AP, oblique, lateral 3 views Date and time of exam: March 07, 2025 1808 hours INDICATIONS: Hand pain months FINDINGS: Severe osteopenia Differential narrowing of the metacarpophalangeal joints Significant arthritic change involving the interphalangeal joints fusion distal interphalangeal joint fourth digit No fractures No cortical bone destruction IMPRESSION: Diffuse significant arthritic change, differential would include rheumatoid arthritis Dictated By: Saeid Zavala MD Medication Administration(s) none Medication Administration History Discontinued Medications Furosemide (Furosemide Inj 10 Mg/Ml 4ml Vial) 40 mg IVP X1 ONE Stop: 03/07/25 17:35 Consultations/Discussions re: Management Consult #1: Date/time: 03/07/25 6:07 pm Physician, specialty, service, details: Discussed test HPI, PMHx, lab, radiology results and/or management with resident working with the hospitalist. Will admit for further evaluation and management. Accepts patient for admission. Diagnosis Differential diagnosis: fall, dehydration, electrolyte imbalance Most likely dx, and/or detailed dx discussion: Syncope CHF Multiple falls Multiple contusions Hand injury Bilateral leg weakness Dispositon Disposition: Admit
--- NOTE | 2025-03-07 14:47 | XR_ITS ---
Examination: Hand, right 3 views Technique: Hand AP, oblique, lateral 3 views Date and time of exam: March 07, 2025 1808 hours INDICATIONS: Hand pain months FINDINGS: Severe osteopenia Differential narrowing of the metacarpophalangeal joints Significant arthritic change involving the interphalangeal joints fusion distal interphalangeal joint fourth digit No fractures No cortical bone destruction IMPRESSION: Diffuse significant arthritic change, differential would include rheumatoid arthritis
[2025-03-07 14:49] LABS: Base Excess, Venous 5 (-3-3); O2 Saturation, Venous 84 % (96-97); PCO2, Venous 37 mmHg (36-56); PO2, Venous 43 mmHg (15-58); pH, Venous 7.49 (7.33-7.66)
[2025-03-07 14:50] LABS: Lactate (Lactic Acid) 1.7 mMol/L (0.4-2.0)
[2025-03-07 14:55] LABS: Basophils % (Auto) 0 % (0-2.5); Eosinophils # (Auto) 0.1 Thou/mm3 (0.0-0.5); Eosinophils % (Auto) 1 % (0-10); Hematocrit 32.2 % (36.0-46.0); Hemoglobin 10.7 g/dL (12.0-16.0); Immature Granulocytes % (Auto) 2 % (0-0); Immature Granulocytes Auto 0.25 Thou/mm3 (0.00-0.00); Lymphocytes # (Auto) 0.6 Thou/mm3 (1.0-4.8); Lymphocytes % (Auto) 4 % (10-50); Mean Corpuscular HGB Conc 33.2 g/dl (31.0-37.0); Mean Corpuscular Hemoglobin 37.2 pg (25.0-35.0); Mean Corpuscular Volume 112 fL (80-100); Monocytes # (Auto) 0.2 Thou/mm3 (0.0-0.8); Monocytes % (Auto) 2 % (0-12); Neutrophils # (Auto) 12.2 Thou/mm3 (1.8-7.7); Neutrophils % (Auto) 91 % (37-80); Nucleated Red Blood Cell # 0.03 Thou/mm3 (0.00-0.00); Nucleated Red Blood Cell % 0 /100 WBC (0); Platelet Count 454 Thou/mm3 (140-440); RDW Standard Deviation 67.3 fL (36.4-46.3); Red Blood Count 2.88 Miln/mm3 (4.00-5.20); White Blood Count 13.3 Thou/mm3 (3.6-11.0)
[2025-03-07 15:14] LABS: Alanine Aminotransferase 13 U/L (10-49); Albumin, Serum 3.4 gm/dL (3.4-4.8); Albumin/Globulin Ratio 1.5 (1.2-2.2); Alkaline Phosphatase 47 U/L (46-116); Anion Gap 8 (7-16); BUN/Creatinine Ratio 28 Ratio (12-20); Blood Urea Nitrogen 22 mg/dL (9-23); Calcium 8.4 mg/dL (8.3-10.6); Calcium (Corrected) 8.9 mg/dL (8.5-10.1); Carbon Dioxide 29.3 mMol/L (20.0-31.0); Chloride 96 mMol/L (98-107); Creatinine (Component) 0.8 mg/dL (0.6-1.3); Estimated Creatinine Clearance 48.9 mL/min (>60); Globulin 2.3 gm/dL (2.3-3.5); Glucose 121 mg/dL (74-106); Lipase 29 U/L (12-53); Magnesium 1.2 mg/dL (1.6-2.6); Osmolality,Calculated 270 (275-295); Sodium 133 mMol/L (136-145); Total Protein 5.7 gm/dL (5.7-8.2); Troponin I 0.027 ng/mL (0.0-0.045); eGFR > 60 See Note
[2025-03-07 15:15] LABS: B-Type Natriuretic Peptide 704 pg/mL (0-100)
[2025-03-07 15:51] LABS: Collection Type, Urine Clean Catch
[2025-03-07 15:56] LABS: Bilirubin,Urine Negative (Negative); Blood,Urine Negative (Negative); Clarity,Urine Clear (Clear/Hazy); Color,Urine Lt-Yellow (Lt Yel-Yel); Glucose, Urine Negative (Negative); Hyaline Casts,Urine < 1 /hpf (0-1); Ketones,Urine Negative (Negative); Leukocyte Esterase,Urine Positive (Negative); Nitrite,Urine Negative (Negative); Protein,Urine 1+ (Neg - Trace); RBC,Urine 6 /hpf (0-3); Squamous Epithelial Cell,Urine < 1 /hpf (0-5); Urobilinogen,Urine Negative mg/dL (0.0-1.0); WBC,Urine 20 /hpf (0-5)
[2025-03-07 16:03] LABS: Culture Indicated,Urine Yes
[2025-03-07 16:15] LABS: Amphetamine/Methamp Scrn,U Negative (Negative); Barbiturate Screen,Urine Negative (Negative); Benzodiazepines Screen,Urine Negative (Negative); Benzoylecgonine Screen, Ur Negative (Negative); Fentanyl Screen,Urine Negative (Negative); Opiate Screen,Urine Negative (Negative); THC Screen,Urine Negative (Negative)
--- NOTE | 2025-03-07 17:34 | XR_ITS ---
Examination: CT brain head without contrast. 2-D sagittal coronal reconstructions Date and time of exam:March 07, 2025 8007 hours Comparison May 23, 2019 INDICATIONS: Patient fell today with injury to the head, followed by headache and nausea CTDI: vol (mGy):45.4 DLP: (mGycm):916 Technique: Multiple CT axial sections of the brain have been obtained, 5 mm slice thickness. Contrast has not been administered. 2-D sagittal, coronal reconstructions have been obtained Low dose protocols were performed. One or more of the following dose reduction techniques were used; automated exposure control, adjustment of the mA and/or KV according to patient size, use of iterative reconstruction technique. Findings: No significant ventricular enlargement. Again noted old infarct right basal ganglia Intra-axial or extra-axial hemorrhage density is not seen. No mass effect or midline shift Basal cisterns are not remarkable. Fourth ventricle is midline. Cranial vault intact. Impression: Negative for acute hemorrhage, mass effect or midline shift
--- NOTE | 2025-03-07 18:40 | PD.RESEVENT ---
Documentation for date of: 03/07/25 Event Note Event Note: 17:[address] Morocho to request admission for ED 5, 84-year-old female came due to fall/syncope and found to have possible CHF exacerbation requiring O2. As patient presented with a fall and is on Eliquis, ED provider will order head CT. 18:[address] returned negative, will hand off admission to night hospitalist team. Patient plan of care was discussed with the attending physician, Dr. Castro. Ariana Hansen, PGY-2
[2025-03-07] MEDS: FUROSEMIDE INJ 10 MG/ML 4ML VIAL 40 MG IVP (19:25)
--- NOTE | 2025-03-07 20:05 | PD.RESHP ---
Documentation for date of: 03/07/25 [facility] History of Present Illness Chief complaint: syncopal episode History of present illness: 84-year-old female with a past medical history of severe aortic stenosis, CAD status post stents, HFpEF (60-65% on 04/2023), A-fib on Eliquis, CVA 2018, polycythemia vera, pulmonary fibrosis on 2 L home O2 (baseline SpO2 95%), hypertension, gout, chronic UTIs was admitted to the hospital on 03/07/2025 after coming to the ER with a syncopal episode. Patient is a very poor historian, but was able to give some history and the rest of the history was taken from patient's son who is her surrogate. Per patient she was back at the rehab center and she has been getting better, but today she was walking to the bathroom and all of a sudden she just remembers waking up in an ambulance. Patient mentioned that she has had a cough ever since she was discharged last month and that has been present on and off throughout the days. She states that her breathing is okay and she has not had any issues. She denied any chest pain, dizziness, palpitations, nausea, vomiting prior to the syncopal episode. Patient has that we speak to her son as he could give us more information. We spoke with the patient's son who stated that the staff at the rehab center told him that patient today had a fall and seemed that she lost consciousness and then she later woke up with feelings like she had a stroke therefore they decided to bring her to the ER. Of note patient was recently discharged on 02/15/2025 and she was supposed to follow-up with cardiology for possible cardiac catheterization and possible TAVR for her aortic stenosis. ED course: Initially patient came in hypertensive and afebrile. Initial labs were remarkable for leukocytosis, low hemoglobin, hyponatremia, hypomagnesemia, and elevated BNP. Patient's imaging included chest x-ray which showed CHF pattern and some possible superimposed pneumonia of both lungs, but is more consistent with pulmonary edema. Additional imaging can have an x-ray which was significant only for arthritic changes, head CT which was unremarkable, and EKG which showed A-fib. PMH: As above Social Hx: Denies any drugs, smoking, alcohol Allergies: Shellfish derived products Surgical Hx: Cholecystectomy and stent placement Review of Systems Review of Systems Narrative Review of Systems: Constitutional: Denies sweats, Denies weight loss/gain, Denies fever, Denies chills. HEENT: Denies hearing loss, Denies ear pain, Denies postnasal drip, Denies double vision, Denies blurry vision. Respiratory: Denies shortness of breath, Admits cough, Denies wheezing. Cardiovascular: Denies chest pain, Denies palpitations, Admits sudden loss of consciousness. GI: Denies blood in stool, Denies constipation, Denies abdominal pain, Denies difficulty swallowing, Denies nausea or vomit. : Denies urinary incontinence, Denies pain while urinating, Denies increased urinary frequency. MSK: Denies joint pain, Denies joint swelling, Denies numbness. Skin: Denies rash, Denies itching, Denies easy bruising. Neuro: Denies headaches, Denies dizziness, Denies seizures. Past Medical History Past Medical History NEUROLOGIC: Positive Neurological Disorders, Cerebrovascular Accident, Transient Ischemic Attacks (TIA) and Peripheral Neuropathy CARDIAC: Positive Cardiac Disorders, Myocardial Infarction, Cardiac Arrhythmia, Atrial Fibrillation, Angina, Coronary Artery Disease, Atherosclerotic Heart Disease, Aneurysm, Congestive Heart Failure, Edema, Deep Vein Thrombosis, Hypertension, Hypotension and Varicose Veins RESPIRATORY: Positive Asthma, Bronchitis and Pulmonary Fibrosis GASTROINTESTINAL: Positive Gastrointestinal Disorders, Gall Bladder Disease, Gastrointestinal Bleed, Ulcer, Hiatal Hernia and Gastroesophageal Reflux Disease GENITOURINARY: Positive Genitourinary Disorders and Kidney Stones MUSCULOSKELETAL: Positive Musculoskeletal Disorders, Muscular Dystrophy, Arthritis and Fibromyalgia ENT: Positive Cataracts and Deafness HEMATOLOGIC: Positive Blood Disorders and Clotting Problems OTHER HISTORY: Positive Autoimmune Disease, Falls, Chemotherapy, Chicken Pox and Cancer Family History FAMILY HISTORY: Positive Family Respiratory Disorders, Family Cardiac Disorders, Family Gastrointestinal Problems, Family Cancer and Family Surgery Surgical History SURGICAL: Positive Coronary Stent Social History SMOKING STATUS: Never smoker SUBSTANCE USE: does not use ALCOHOL: Never Exam Vital Signs Temp Pulse Resp BP Pulse Ox O2 Del Method O2 Flow Rate 98.0 F 80 17 155/83 H 94 L Nasal Cannula 6 03/07/25 18:00 03/07/25 19:25 03/07/25 18:00 03/07/25 19:25 03/07/25 18:00 03/07/25 18:00 03/07/25 18:00 Narrative Exam General: A/O x3, no acute distress Eyes: PERRL, EOMI. Anicteric, vision grossly intact. Ears: No ear pain, no ear discharge, Hearing grossly intact. Nose: No nasal discharge. Mouth/Throat: Moist mucous membranes, no redness, no lesions. Neck: Neck supple, non-tender, no cervical lymphadenopathy. Lungs: Clear CANDE to auscultation and percussion, No accessory muscle use. Cardio: Normal S1/S2, regular rhythm, systolic murmur appreciated, no JVD Abdomen: Soft, non-tender, no palpable masses, peristalsis present, no guarding or rebound. Extremities: Symmetrical, no significant deformities, 1+ peripheral edema , non-tender, peripheral pulses presents. Skin: No rashes, no lesions, warm to touch. Neuro: No focal neurological deficits. motor and sensory intact Psych: Cooperative, appropriate mood and effect. Results: Labs 03/08/25 05:05 03/07/25 14:41 Labs: Short CBC 03/07/25 Range/Units 14:41 WBC 13.3 H (3.6-11.0) Thou/mm3 Hgb 10.7 L (12.0-16.0) g/dL Hct 32.2 L (36.0-46.0) % Plt Count 454 H D (140-440) Thou/mm3 BMP 03/07/25 14:41 Sodium 133 L Potassium 4.0 Chloride 96 L Carbon Dioxide 29.3 BUN 22 Creatinine 0.8 Glucose 121 H Calcium 8.4 Cardiac Enzymes 03/07/25 Range/Units 14:41 Troponin I 0.027 (0.0-0.045) ng/mL Liver Function 03/07/25 Range/Units 14:41 Total Bilirubin 1.0 (0.3-1.2) mg/dL ALT 13 (10-49) U/L Alkaline Phosphatase 47 (46-116) U/L Albumin 3.4 (3.4-4.8) gm/dL Urine 03/07/25 Range/Units 15:45 Urine Color Lt-Yellow (Lt Yel-Yel) Urine Clarity Clear (Clear/Hazy) Urine pH 6.0 (5.0-7.0) Ur Specific [place] 1.010 (1.001-1.035) Urine Protein 1+ A (Neg - Trace) Urine Glucose (UA) Negative (Negative) ABG Interpretation ABG results: 03/07/25 14:41 VBG pH 7.49 VBG pCO2 37 VBG pO2 43 VBG Base Excess 5 H Quality Measures Quality Measures none Advance care planning discussed with:: patient and child Medications Home Medications and Allergies Home Medications ?Medication ?Instructions ?Recorded ?Confirmed ?Type allopurinol 300 mg tablet 300 mg PO QDAY 10/11/18 02/10/25 History alpha lipoic acid 600 mg capsule 600 mg PO QDAY 01/14/23 02/10/25 History benazepril 10 mg tablet 10 mg PO BID PRN hypertension 01/14/23 02/11/25 History carvedilol 12.5 mg tablet 12.5 mg PO BID 01/14/23 02/10/25 History cetirizine 10 mg tablet 10 mg PO QDAY 01/14/23 02/10/25 History cholecalciferol (vitamin D3) 125 5,000 unit PO QDAY 01/14/23 02/10/25 History mcg (5,000 unit) tablet (Vitamin D3) folic acid 1 mg tablet 1 mg PO TID 01/14/23 02/10/25 History mirabegron 50 mg tablet,extended 50 mg PO QDAY 01/14/23 02/10/25 History release 24 hr (Myrbetriq) montelukast 10 mg tablet 10 mg PO QDAY 01/14/23 02/10/25 History omeprazole 40 mg capsule,delayed 40 mg PO QDAY 01/14/23 02/10/25 History release apixaban 2.5 mg tablet (Eliquis) 2.5 mg PO BID 01/15/23 02/10/25 History nitroglycerin 0.4 mg sublingual 0.4 mg buccal Q5M PRN Chest Pain 01/15/23 02/11/25 History tablet albuterol sulfate 90 mcg/actuation 1 inh inhalation BID 07/09/23 02/10/25 History aerosol inhaler bumetanide 1 mg tablet 1 mg PO QDAY 07/09/23 02/10/25 History guaifenesin 600 mg tablet,extended 600 mg PO BID 07/09/23 02/10/25 History release hydroxyurea 500 mg capsule 1,000 mg PO HS 07/09/23 02/10/25 History budesonide 160 mcg-glycopyr 9 2 inh inhalation BID 12/18/24 02/11/25 History mcg-formot 4.8 mcg/actuation HFA inhaler (Breztri Barak ITCphere) Allergies Allergy/AdvReac Type Severity Reaction Status Date / Time iodine Allergy Severe Swelling Verified 02/10/25 15:35 of Lip/Tongue/Throat shellfish derived Allergy Severe Swelling Verified 02/10/25 15:35 of Lip/Tongue/Throat Visit Medications Acetaminophen (Acetaminophen 325 Mg Tablet) 650 mg PO Q6H PRN PRN Reason: pain and Fever >100.4 Stop: 04/06/25 19:54 Hydrocodone Bitart/Acetaminophen (Hydrocodone/Apap 5/325 Tablet) 1 tab PO Q4HR PRN PRN Reason: PAIN SCALE 4-10(Mod-Sev Stop: 03/12/25 19:54 Albuterol/Ipratropium (Albuterol/Ipratropium (Duoneb) Rt Luciana 3 Ml Nebu) 3 ml INH Q4HRRT PRN PRN Reason: SOB or Wheezing Stop: 04/06/25 22:59 Bumetanide (Bumetanide Inj 0.25 Mg/Ml Vial 4 Ml) 1 mg IVP BID HEIKE Stop: 04/06/25 20:59 Magnesium Sulfate (Magnesium Sulfate Ivpb) 4 gm in 50 mls @ 12.5 mls/hr IV X1 ONE Stop: 03/07/25 23:59 Ondansetron HCl (Ondansetron Inj 2 Mg/Ml Inj 2 Ml) 4 mg IVP Q6H PRN; Protocol PRN Reason: NAUSEA OR VOMITING Stop: 04/06/25 19:54 Discontinued Medications Furosemide (Furosemide Inj 10 Mg/Ml 4ml Vial) 40 mg IVP X1 ONE Stop: 03/07/25 17:35 Last Admin: 03/07/25 19:25 Dose: 40 mg Assessment & Plan Plan 84-year-old female with a past medical history of severe aortic stenosis, CAD status post stents, HFpEF (65% EF on 01/2025), A-fib on Eliquis, CVA 2017, polycythemia vera, pulmonary fibrosis on 2 L home O2 (baseline SpO2 95%), hypertension, gout, chronic UTIs was admitted to the hospital on 03/07/2025 for syncopal episode likely in the setting of severe aortic stenosis and for acute decompensated heart failure exacerbation. #Syncopal episode #Acute decompensated heart failure exacerbation #Hx of severe aortic stenosis #Hx of HFpEF (65% EF on 01/2025) #Hx of CAD s/p stents #Hx of A-fib (on Eliquis) Patient came in after having a syncopal episode today in the rehab center where she went to the bathroom. Patient does have a history of severe aortic stenosis seen on echo on previous admission on January and she was supposed to follow-up with cardiology for possible TAVR. Patient has not follow-up with cardiology for TAVR as per patient's son. Patient head CT was negative and EKG showed A-fib. Patient's chest x-ray again showed CHF pattern and some possible superimposed pneumonia, but seems more like pulmonary edema than actual pneumonia. Patient has 1+ peripheral edema Plan: Admit to telemetry Bumex 1 mg twice daily IV Restart carvedilol 12.5 mg twice daily and Eliquis 2.5 mg twice daily Strict ALEX's Daily weights Low-sodium diet Fluid restrictions at 1800 Keep potassium magnesium above 4 and 2 respectively Order procalcitonin to evaluate if patient could be having underlying pneumonia, will start antibiotics if procalcitonin comes back elevated, otherwise more likely CHF exacerbation. Cardiology consulted, appreciate commendations Will continue to monitor Chronic diseases: #Hx of polycythemia vera #Hx of pulmonary fibrosis on 2 L home O2 #Hx of gout #Hx of chronic UTIs #Hx of CVA 2018 #Hx of hypertension #Hx of macrocytic anemia No active signs of bleeding and hemoglobin stable Blood pressure was mildly elevated on admission Pending med reconciliation for rest of medications Disposition: Patient admitted to telemetry for syncopal episode. Diet: Cardiac, 1800 ml GI prophylaxis: protonix DVT prophylaxis: Eliquis Code:DNR/DNI Case disclosed with Attending Dr. Franco Bajwa PGY1 Disclaimer: Even though this this note was dictated by speech recognition and even though it was carefully revised there may still be minor errors in gold blower due to voice recognition software. Attending Provider Attestation/Addendum I reviewed labs, imaging, EKG, home medications and prior available records. Face to face evaluation was performed by me. I have personally examined the patient and discussed assessment and plan with the IM team. I reviewed the resident note and agree with the plan with exceptions as below. Syncope Acute hypoxic respiratory failure Aortic stenosis HFpEF exacerbation History of CVA Polycythemia vera Pulmonary fibrosis Atrial fibrillation on Eliquis Leukocytosis Syncope is likely in setting of hypoxia versus aortic stenosis Start IV diuresis Send procalcitonin. Low threshold to start antibiotics to cover for bilateral pneumonia Trend WBC Consult cardiology Monitor H&H Continue oxygen as needed and wean off as tolerated Resume home Eliquis
[2025-03-07 20:42] LABS: Procalcitonin 0.13 ng/ml (0.0-0.49)
[2025-03-07] MEDS: Magnesium Sulfate 4 GM Ivpb 4 GM/50 ML BAG IV (20:47)
[2025-03-07] MEDS: APIXABAN 2.5 MG TABLET PO (20:47)
[2025-03-07] MEDS: BUMETANIDE INJ 0.25 MG/ML VIAL 4 ML 1 MG IVP (20:47)
--- NOTE | 2025-03-07 21:06 | PC.NURSE ---
pt resting quietly. meds have been given. call light given to pt with instructions how to use.
[2025-03-08] VITALS (16 sets, daily range): BP systolic 119–176; BP diastolic 60–94; PULSE 77–112; RESP 15–20; TEMP 36.1–36.7; O2SAT 93–99; BMI 24.2
--- NOTE | 2025-03-08 00:12 | PC.NURSE ---
Patient arrived to unit with belongings but not with her home medications. Nurse asked patient if she know the medications that she takes from home. Patient replied I don't know the medication I take at home. There is so many of them. Nurse notified patient that since she does not know the medication that she takes at home, her son would be able to bring her medication from home.
[2025-03-08] MEDS: SIMETHICONE 80 MG CHEW PO (00:35)
--- NOTE | 2025-03-08 04:18 | PC.NURSE ---
Late post: at time of admission of patient, patient was asked if she had her home medications with her. To which he patient replied yes, but my son has it with him when I was in the ER. Nurse asked patient if she is able to recall her medication that she takes at home. Patient replied no. Nurse asked patient if her son is able to bring her medication to the hospital when he comes and visit. Patient replied yes.
[2025-03-08] MEDS: HYDROcodone/APAP 5/325 TABLET 1 TAB PO ×2 (04:27→10:48)
[2025-03-08] MEDS: ALBUTEROL/IPRATROPIUM (Duoneb) RT SOL 3 ML NEBU INH (04:28)
[2025-03-08 05:55] LABS: Basophils # (Auto) 0.1 Thou/mm3 (0.0-0.2); Basophils % (Auto) 0 % (0-2.5); Eosinophils % (Auto) 0 % (0-10); Hematocrit 36.3 % (36.0-46.0); Hemoglobin 12.2 g/dL (12.0-16.0); Immature Granulocytes % (Auto) 3 % (0-0); Immature Granulocytes Auto 0.45 Thou/mm3 (0.00-0.00); Lymphocytes # (Auto) 0.6 Thou/mm3 (1.0-4.8); Lymphocytes % (Auto) 4 % (10-50); Mean Corpuscular HGB Conc 33.6 g/dl (31.0-37.0); Mean Corpuscular Volume 110 fL (80-100); Monocytes # (Auto) 0.2 Thou/mm3 (0.0-0.8); Monocytes % (Auto) 1 % (0-12); Neutrophils # (Auto) 15.7 Thou/mm3 (1.8-7.7); Neutrophils % (Auto) 92 % (37-80); Nucleated Red Blood Cell # 0.04 Thou/mm3 (0.00-0.00); Nucleated Red Blood Cell % 0 /100 WBC (0); Platelet Count 482 Thou/mm3 (140-440); RDW Standard Deviation 66.5 fL (36.4-46.3)
[2025-03-08 06:24] LABS: Alanine Aminotransferase 11 U/L (10-49); Albumin, Serum 3.7 gm/dL (3.4-4.8); Albumin/Globulin Ratio 1.4 (1.2-2.2); Alkaline Phosphatase 53 U/L (46-116); Anion Gap 12 (7-16); BUN/Creatinine Ratio 26 Ratio (12-20); Bilirubin,Total 1.6 mg/dL (0.3-1.2); Blood Urea Nitrogen 18 mg/dL (9-23); Calcium (Corrected) 9.2 mg/dL (8.5-10.1); Chloride 93 mMol/L (98-107); Creatinine (Component) 0.7 mg/dL (0.6-1.3); Estimated Creatinine Clearance 55.9 mL/min (>60); Globulin 2.6 gm/dL (2.3-3.5); Glucose 123 mg/dL (74-106); Magnesium 1.7 mg/dL (1.6-2.6); Osmolality,Calculated 273 (275-295); Potassium 3.5 mMol/L (3.4-5.1); Sodium 135 mMol/L (136-145); Total Protein 6.3 gm/dL (5.7-8.2); eGFR > 60 See Note
[2025-03-08] MEDS: BUMETANIDE INJ 0.25 MG/ML VIAL 4 ML 1 MG IVP ×2 (09:24→20:39)
[2025-03-08] MEDS: PANTOPRAZOLE 40 MG TABLET PO (09:25)
[2025-03-08] MEDS: carVEDILOL 12.5 MG TABLET PO ×2 (09:25→17:41)
[2025-03-08] MEDS: APIXABAN 2.5 MG TABLET PO ×2 (09:25→20:38)
[2025-03-08] MEDS: Magnesium Sulfate 4 GM Ivpb 4 GM/50 ML BAG IV (09:26)
[2025-03-08] MEDS: POTASSIUM CHLORIDE 20 mEq TABCR 40 MEQ PO (09:26)
--- NOTE | 2025-03-08 11:13 | PC.SS ---
Pt is from [facility]. SS spoke to son who is requesting pt to return to [facility] upon dc. SS has spoken to Debo at [facility] who explained pt will require PT evaluation for insurance authorization to return to [facility] due to already having a notice of Medicare non coverage.
--- NOTE | 2025-03-08 11:22 | XR_ITS ---
Examination: Abdomen sonogram, complete Date and time of exam: March 08, 2025 1543 hours INDICATIONS: Right-sided abdominal pain today. Technique: Multiple real-time grayscale transabdominal sonographic images of the abdomen have been obtained. Findings: Absent gallbladder Common bile duct 0.6 cm Pancreatic head 3.8 cm Aorta is not enlarged Liver 18.7 cm lobular contour fatty infiltration Normal hepatopedal portal venous on Date and IVC Right kidney incompletely visualized 20 mm mid pole cyst 70 mm upper pole cyst Left kidney 11.8 cm cortex 1.6 cm 4.7 cm lower pole cyst Spleen 17.0 cm IMPRESSION: No common bile duct stones Cirrhosis Significant splenomegaly Prominent pancreas, clinical correlation advised, consider CT abdomen postcontrast follow-up
--- NOTE | 2025-03-08 11:38 | PC.SS ---
SS met with patient and spoken to her son, Sammy (by phone) regarding d/c plan. Pt is alert/oriented. Pt was admitted for Syncopal Episode. Pt is from [facility] and will require insurance authorization upon dc. Pt confirmed demographic and contact information is correct on facesheet. Pt resides with. Pt ambulates utilizing a walker. Pt requires assistance with all ADLs. Pt named her son, Sammy Mccormack medical decision maker if she is unable. SS provided verbal options for d/c to home or SNF. Pt is currently on 3 liters of O2. Pt utilizes O2 at SNF. Per Debo at [facility], pt will require PT evaluation for insurance authorization upon d.c. Dr. Hansen is aware. D/C plan: Return to [facility] Next of Kin: Sammy Mccormack, son, phone# [phone] PCP: Dr. Burak Hebert Address: Correct on facesheet
--- NOTE | 2025-03-08 11:41 | PD.RESPRO ---
Documentation for date of: 03/08/25 Subjective Subjective Interval history: No acute overnight evetns reported, pt is seen and examined at bedside this morning. Pt continues to have shortness of breath, currently saturating 96% on 4L oxygen. Pt denies diziness, orthopnea, PND adn is able to lay flat. Pt states due to her comorbidities and age she and her son Sammy had decided against the TAVR procedure. Pt states the syncopal episode was isolated episode not recurrent. she states she landed on her hand which caused bruising. Denies any pain. vitals and labs are reviewed. Exam Vital Signs Temp Pulse Resp BP Pulse Ox O2 Del Method O2 Flow Rate 97.0 F 94 15 149/91 H 94 L Nasal Cannula 3 03/08/25 08:00 03/08/25 09:03/08/25 08:00 03/08/25 09:03/08/25 08:00 03/08/25 08:00 03/08/25 08:00 Narrative Exam GENERAL: A&Ox3 . Awake, Not in acute distress NEURO: no focal neurological deficits HEENT: Atraumatic, Normocephalic. mucous membranes moist. Eyes open, symmetrical, & clear HEART: systolic murmur heard LUNGS: Clear to auscultation with no wheezing or crackles. ABDOMEN: soft, non-distended, non-tender, bowel sounds heard, no guarding or rebound tenderness SKIN: No Rash or ecchymoses EXTREMITIES: 1+ non pitting edema bilaterally in LE, no tenderness, able to move all 4 extremities, pedal pulses palpated Objective Labs 03/20/25 04:35 03/20/25 04:35 Labs: Laboratory Results - last 24 hr 03/07/25 03/07/25 03/08/25 14:41 15:45 05:05 WBC 13.3 H 17.0 H RBC 2.88 L 3.30 L Hgb 10.7 L 12.2 Hct 32.2 L 36.3 MCV 112 H 110 H MCH 37.2 H 37.0 H MCHC 33.2 33.6 RDW Std Deviation 67.3 H 66.5 H Plt Count 454 H D 482 H Neut % (Auto) 91 H 92 H Lymph % (Auto) 4 L 4 L [place] % (Auto) 2 1 Eos % (Auto) 1 0 Baso % (Auto) 0 0 Neut # (Auto) 12.2 H 15.7 H Lymph # (Auto) 0.6 L 0.6 L [place] # (Auto) 0.2 0.2 Eos # (Auto) 0.1 0.0 Baso # (Auto) 0.0 0.1 Immature Gran # (Auto) 0.25 H 0.45 H Absolute Nucleated RBC 0.03 H 0.04 H Immature Gran % 2 H 3 H Nucleated RBC % 0 0 VBG pH 7.49 VBG pCO2 37 VBG pO2 43 VBG O2 Sat (Sid) 84 L VBG Base Excess 5 H Sodium 133 L 135 L Potassium 4.0 3.5 D Chloride 96 L 93 L Carbon Dioxide 29.3 30.0 Anion Gap 8 12 BUN 22 18 Creatinine 0.8 0.7 Estim Creat Clear Calc 48.9 L 55.9 L eGFR > 60 > 60 BUN/Creatinine Ratio 28 H 26 H Glucose 121 H 123 H Calculated Osmolality 270 L 273 L Lactic Acid 1.7 Calcium 8.4 9.0 Corrected Calcium 8.9 9.2 Magnesium 1.2 L 1.7 Total Bilirubin 1.0 1.6 H D ALT 13 11 Alkaline Phosphatase 47 53 Troponin I 0.027 B-Natriuretic Peptide 704 H* Total Protein 5.7 6.3 Albumin 3.4 3.7 Globulin 2.3 2.6 Albumin/Globulin Ratio 1.5 1.4 Lipase 29 Procalcitonin 0.13 Ur Collection Type Clean Catch Urine Color Lt-Yellow Urine Clarity Clear Urine pH 6.0 Ur Specific [place] 1.010 Urine Protein 1+ A Urine Glucose (UA) Negative Urine Ketones Negative Urine Blood Negative Urine Nitrite Negative Urine Bilirubin Negative Urine Urobilinogen (Auto) Negative Ur Leukocyte Esterase Positive Urine RBC 6 H Urine WBC 20 H Ur Squamous Epith Cells < 1 Urine Bacteria None Hyaline Casts < 1 Ur Culture Indicated? Yes Urine Opiates Screen Negative Urine Fentanyl Screen Negative Ur Barbiturates Screen Negative U Amphetamin/Meth Scrn Negative U Benzodiazepines Scrn Negative U Cocaine Metab Screen Negative U Marijuana (THC) Screen Negative ABG Interpretation ABG results: 03/07/25 14:41 VBG pH 7.49 VBG pCO2 37 VBG pO2 43 VBG Base Excess 5 H Quality Measures Quality Measures none Advance care planning discussed with:: patient Assessment & Plan Assessment Current Active Medications: Generic Name Dose Route Start Last Admin Trade Name Freq PRN Reason Stop Dose Admin Acetaminophen 650 mg 03/08/25 09:19 Acetaminophen 325 Mg Tablet PO 04/06/25 19:54 Q6H PRN pain(1-3) and Fever >100.4 Hydrocodone Bitart/Acetaminophen 1 tab 03/07/25 19:55 03/08/25 10:48 Hydrocodone/Apap 5/325 Tablet PO 03/12/25 19:54 1 tab Q4HR PRN Administration PAIN SCALE 4-10(Mod-Sev Albuterol/Ipratropium 3 ml 03/07/25 19:55 03/08/25 04:28 Albuterol/Ipratropium (Duoneb) Rt Luciana 3 Ml Nebu INH 04/06/25 22:59 3 ml Q4HRRT PRN Administration SOB or Wheezing Apixaban 2.5 mg 03/07/25 21:00 03/08/25 09:25 Apixaban 2.5 Mg Tablet PO 04/06/25 20:59 2.5 mg BID HEIKE Administration Bumetanide 1 mg 03/07/25 21:00 03/08/25 09:24 Bumetanide Inj 0.25 Mg/Ml Vial 4 Ml IVP 04/06/25 20:59 1 mg BID HEIKE Administration Carvedilol 12.5 mg 03/08/25 08:00 03/08/25 09:25 Carvedilol 12.5 Mg Tablet PO 04/07/25 07:59 12.5 mg BIDWM EHIKE Administration Magnesium Sulfate 4 gm in 50 mls @ 12.5 mls/hr 03/08/25 08:44 03/08/25 09:26 Magnesium Sulfate Ivpb IV 03/08/25 12:43 12.5 mls/hr X1 ONE Administration Ondansetron HCl 4 mg 03/07/25 19:55 Ondansetron Inj 2 Mg/Ml Inj 2 Ml IVP 04/06/25 19:54 Q6H PRN NAUSEA OR VOMITING Protocol Pantoprazole Sodium 40 mg 03/08/25 09:00 03/08/25 09:25 Pantoprazole 40 Mg Tablet PO 04/07/25 08:59 40 mg QDAY HEIKE Administration Plan Ms. Mccormack is a 84-year-old female with a past medical history of severe aortic stenosis, CAD status post stents, HFpEF (65% EF on 01/2025), A-fib on Eliquis, CVA 2018, polycythemia vera, pulmonary fibrosis on 2 L home O2 (baseline SpO2 95%), hypertension, gout, chronic UTIs was admitted to the hospital on 03/07/2025 for syncopal episode likely in the setting of severe aortic stenosis and for acute decompensated heart failure exacerbation. #Syncopal episode #Acute decompensated heart failure exacerbation #Hx of severe aortic stenosis #Hx of HFpEF (65% EF on 01/2025) #Hx of CAD s/p stents #Hx of A-fib (on Eliquis) Patient came in after having a syncopal episode today in the rehab center where she went to the bathroom. Patient does have a history of severe aortic stenosis seen on echo on previous admission on January and she was supposed to follow-up with cardiology for possible TAVR. Patient has not follow-up with cardiology for TAVR as per patient's son. Patient head CT was negative and EKG showed A-fib. Patient's chest x-ray again showed CHF pattern and some possible superimposed pneumonia, but seems more like pulmonary edema than actual pneumonia. Patient has 1+ peripheral edema Plan: Admit to telemetry Bumex 1 mg twice daily IV Restart carvedilol 12.5 mg twice daily and Eliquis 2.5 mg twice daily Strict ALEX's Daily weights Low-sodium diet Fluid restrictions at 1800 Keep potassium magnesium above 4 and 2 respectively Order procalcitonin to evaluate if patient could be having underlying pneumonia, will start antibiotics if procalcitonin comes back elevated, otherwise more likely CHF exacerbation. Cardiology consulted, appreciate commendations Will continue to monitor Chronic diseases: #Hx of polycythemia vera #Hx of pulmonary fibrosis on 2 L home O2 #Hx of gout #Hx of chronic UTIs #Hx of CVA 2018 #Hx of hypertension #Hx of macrocytic anemia No active signs of bleeding and hemoglobin stable Blood pressure was mildly elevated on admission Pending med reconciliation for rest of medications Disposition: Patient admitted to telemetry for syncopal episode. Diet: Cardiac, 1800 ml GI prophylaxis: protonix DVT prophylaxis: Eliquis Code:DNR/DNI Assessment and plan discussed with my attending physician Dr. Matthew Ladd (PGY-1)- Internal medicine resident Attending Provider Attestation/Addendum 84-year-old female with multiple comorbidities including hypertension, atrial fibrillation on Eliquis, coronary artery disease status post stents, heart failure with preserved EF with EF 65%, severe aortic stenosis who is currently following up with outpatient cardiology for possible TAVR, pulmonary fibrosis on 2 L supplemental oxygen at home who presented status post syncopal episode with differential diagnoses including severe aortic stenosis versus decompensated heart failure. As of now, we are diuresing the patient with improvement in symptoms and for severe aortic stenosis cardiology has been consulted and appreciate their recommendations. Furthermore, patient also noted to have significant pleural effusion requiring thoracentesis and likely related to possible CHF exacerbation.I reviewed above note and agree with findings and plans. I have also personally examined the patient with medicine team and went over assessment and plan with medical team including public health internship and resident physician.
[2025-03-09] VITALS (13 sets, daily range): BP systolic 131–171; BP diastolic 64–90; PULSE 64–97; RESP 15–20; TEMP 36.1–36.3; O2SAT 94–99
[2025-03-09] MEDS: ALBUTEROL/IPRATROPIUM (Duoneb) RT SOL 3 ML NEBU INH (05:24)
[2025-03-09 05:55] LABS: Basophils # (Auto) 0.1 Thou/mm3 (0.0-0.2); Basophils % (Auto) 0 % (0-2.5); Eosinophils # (Auto) 0.1 Thou/mm3 (0.0-0.5); Eosinophils % (Auto) 0 % (0-10); Hematocrit 31.8 % (36.0-46.0); Immature Granulocytes % (Auto) 2 % (0-0); Immature Granulocytes Auto 0.32 Thou/mm3 (0.00-0.00); Lymphocytes # (Auto) 0.6 Thou/mm3 (1.0-4.8); Lymphocytes % (Auto) 4 % (10-50); Mean Corpuscular HGB Conc 34.6 g/dl (31.0-37.0); Mean Corpuscular Hemoglobin 36.7 pg (25.0-35.0); Mean Corpuscular Volume 106 fL (80-100); Monocytes # (Auto) 0.2 Thou/mm3 (0.0-0.8); Monocytes % (Auto) 1 % (0-12); Neutrophils % (Auto) 92 % (37-80); Nucleated Red Blood Cell % 0 /100 WBC (0); Platelet Count 428 Thou/mm3 (140-440); RDW Standard Deviation 63.8 fL (36.4-46.3); White Blood Count 15.3 Thou/mm3 (3.6-11.0)
[2025-03-09 06:31] LABS: Alanine Aminotransferase 9 U/L (10-49); Albumin, Serum 3.3 gm/dL (3.4-4.8); Albumin/Globulin Ratio 1.4 (1.2-2.2); Alkaline Phosphatase 46 U/L (46-116); Anion Gap 10 (7-16); Aspartate Amino Transferase 20 U/L (0-34); BUN/Creatinine Ratio 24 Ratio (12-20); Bilirubin,Total 1.4 mg/dL (0.3-1.2); Blood Urea Nitrogen 17 mg/dL (9-23); Calcium 8.6 mg/dL (8.3-10.6); Calcium (Corrected) 9.2 mg/dL (8.5-10.1); Carbon Dioxide 30.6 mMol/L (20.0-31.0); Chloride 94 mMol/L (98-107); Creatinine (Component) 0.7 mg/dL (0.6-1.3); Estimated Creatinine Clearance 56.6 mL/min (>60); Globulin 2.4 gm/dL (2.3-3.5); Glucose 103 mg/dL (74-106); Magnesium 1.7 mg/dL (1.6-2.6); Osmolality,Calculated 271 (275-295); Potassium 3.7 mMol/L (3.4-5.1); Sodium 135 mMol/L (136-145); Total Protein 5.7 gm/dL (5.7-8.2); eGFR > 60 See Note
--- NOTE | 2025-03-09 07:22 | ESCONSULT_ITS ---
RE: TORREY SALMON : 1940 DATE OF CONSULTATION: 03/08/2025 CONSULTING PHYSICIANS: Dr. eDrick Gamez. REASON FOR CONSULTATION: Evaluation of syncopal episode, aortic stenosis. HISTORY OF PRESENT ILLNESS: The patient is very well known to me. He has a very long-standing history of known coronary artery disease for more than 20 years, long-standing history of multiple medical issues including CAD, status post multiple stent placements in LAD, angioplasty, the last procedure was in 2017, chronic atrial fibrillation, interstitial fibrosis, interstitial lung disease and stent placement in LAD multiple times and right coronary artery stent placement as well. She was recently hospitalized, in fact, only 3 weeks ago. She was in the hospital 02/10/2025 until 02/15/2025 with a diagnosis of pneumonia, large right pleural effusion. Thoracentesis performed. She was given antibiotics and discharged home to a residential facility on 02/15/2025. At that time, echocardiogram showed what appeared to be heavily calcified severely stenotic aortic valve, aortic velocity 3.2 m per second, possibly severe aortic stenosis, and mild to moderate mitral regurgitation. Ejection fraction was 65%. She was mostly having atrial fibrillation as well as pneumonia, treated and released and she was doing fairly well, recovering slowly until today. The patient presented to the hospital because she was apparently extremely weak. She had a syncopal episode according to the nursing staff at the long-term. The patient does not recall the event, but the patient was told that she might have passed out. She had extreme generalized weakness and was not able to hold herself. She apparently walked to the bathroom and all of a sudden, she just remembers waking up in the ambulance. Clearly had a syncopal episode. She did not complain of any cough or expectoration. She does not have any chest pain. She has signs of dizziness. She complains of palpitations. She is known to have chronic atrial fibrillation. There is clear suggestion that the patient might have lost consciousness, but there is no documentation of tachycardia or bradycardia. She is admitted with a diagnosis of syncopal episode, etiology uncertain, possibly from aortic stenosis and diagnosis of acutely decompensated congestive heart failure, preserved ejection fraction. I reviewed the chest x-ray. There is still evidence of small pleural effusion and there may be some pneumonia as well. ALLERGIES: UNKNOWN. MEDICATIONS: The patient is on multiple medications as listed. She takes allopurinol 300 daily. She has a history of polycythemia, on hydroxyurea 1000 mg at bedtime. Also takes inhalers, albuterol and budesonide. Apixaban 2.5 b.i.d. for chronic AFib and benazepril 10 mg daily, carvedilol 12.5 mg b.i.d. for hypertension, vitamin D3, folic acid supplements, Myrbetriq 50 mg every day, montelukast 10 mg every day, omeprazole 40 daily, bumetanide 1 mg daily. PAST MEDICAL HISTORY: Known history of chronic paroxysmal atrial fibrillation for many years, CAD, stent placement to RCA and LAD, last procedure was 2017. History of polycythemia vera, congestive heart failure, preserved ejection fraction, history of possible stroke, pulmonary fibrosis diagnosed recently and has been on 2 L oxygen via nasal cannula. SOCIAL HISTORY: The patient lives in a residential facility since last admission. Nonsmoker. Does not drink any alcoholic beverages. FAMILY HISTORY: Noncontributory. PHYSICAL EXAMINATION: GENERAL: Well-nourished, chronically ill, acutely ill female, thin, alert, awake, in no acute distress. VITAL SIGNS: Her blood pressure is 119/60, pulse rate is 95, respirations 18, temperature 97. HEENT: Head is atraumatic. NECK: Supple. No JVD. CHEST: Symmetrical. LUNGS: Decreased breath sounds on right side, coarse crackles. HEART: S1, S2 irregular. Atrial fibrillation. ABDOMEN: Thin and soft. EXTREMITIES: Mild edema. GENITOURINARY AND RECTAL: Not performed. CENTRAL NERVOUS SYSTEM: The patient is alert, awake, no acute distress. No focal neurologic deficits. IMPRESSION/ASSESSMENT: 1. Syncopal episode, possibly secondary to aortic valve stenosis. 2. Right lower lobe infiltrate and interstitial lung disease and pleural effusion. 3. Congestive heart failure, preserved ejection fraction. 4. Polycythemia vera, on hydroxyurea. 5. Hypertension. 6. Early dementia. RECOMMENDATIONS/DISCUSSION: The patient is an 84-year-old lady known to me. Has a long-standing history of multivessel CAD, stent placement in the past. Has ejection fraction normal, but severe calcific aortic stenosis, possibly causing syncopal episodes. The patient will require right and left heart cardiac catheterization and coronary angiogram once she is stabilized medically. She does have white count elevation of 17,000 and possible right lower lobe infiltrate. Might consider giving antibiotics as well for pneumonia. If the patient is able to undergo right and left heart cardiac catheterization in preparation for TAVR, especially if she is willing to go through it, we may consider doing right and left heart cardiac catheterization, either this admission or possibly following discharge once she is stronger. As far as the medical management is concerned, continue the present medications including her home medication for hypertension. Strongly recommend antibiotic therapy as the white count is going up steadily. We would like to thank for referring this patient for cardiovascular evaluation. We will be glad to follow the patient with you. DT: 21:36:35 TT: 22:24:00 Ref: [id number] - TID: [id number]
[2025-03-09] MEDS: BUMETANIDE INJ 0.25 MG/ML VIAL 4 ML 1 MG IVP ×2 (08:10→20:58)
[2025-03-09] MEDS: PANTOPRAZOLE 40 MG TABLET PO (08:10)
[2025-03-09] MEDS: carVEDILOL 12.5 MG TABLET PO ×2 (08:10→19:31)
[2025-03-09 09:19] LABS: INR 1.3 (0.9-1.3); Partial Thromboplastin Time 35.3 Seconds (22.0-36.0)
--- NOTE | 2025-03-09 09:28 | PC.SS ---
Addendum entered by Marci Villanueva 03/09/25 15:41: LOYD communicated with Debo at [facility] she has started insurance authorization. Original Note: Follow up note: NPO last night. Cath today. LOYD has sent inquiry to [facility] using [facility] for insurance authorization. LOYD has informed Debo from [facility].
--- NOTE | 2025-03-09 10:15 | XR_ITS ---
Examination: Carotid arterial duplex scan, ultrasound. Date and time of exam: March 09, 2025 1051 hours INDICATIONS: Syncopal episode 3 days ago Technique: Multiple sonographic images have been obtained of the carotid arteries and vertebral arteries, B-mode/grayscale imaging and Doppler spectral analysis and color flow Peak systolic and diastolic velocities have been recorded. Systolic diastolic ratios have been calculated. Findings: Right peak systolic velocities: Distal internal carotid artery peak systolic velocity is 0.8 M/sec Proximal internal carotid artery peak systolic velocity is 0.8 M/sec Carotid bifurcation peak systolic velocity is 0.5 M/sec External carotid artery peak systolic velocity is 0.4 M/sec Vertebral artery flow is antegrade. Left peak systolic velocities: Distal internal carotid artery peak systolic velocity is 0.4 M/sec Proximal internal carotid artery peak systolic velocity is 0.3 M/sec Carotid bifurcation peak systolic velocity is 0.5 M/sec External carotid artery peak systolic velocity is 0.7 M/sec Vertebral artery flow is antegrade Doppler waveform analysis demonstrates no spectral broadening Impression: Right internal carotid artery demonstrates 0-10% stenosis. Left internal carotid artery demonstrates 0-10% stenosis.
--- NOTE | 2025-03-09 11:05 | CHAP ---
Patient was visited by the Spiritual Care Volunteer who prayed for them. (Volunteer was in the hospital from 09:30-11:05)
--- NOTE | 2025-03-09 17:03 | PD.RESPRO ---
Documentation for date of: 03/09/25 Subjective Subjective Interval history: No acute overnight events reported. Patient seen and examined at bedside this morning. Currently patient is saturating 95% on 2 L of oxygen. Although patient's chest x-ray are suspicious for pneumonia however patient received antibiotics treatment 2 weeks ago currently patient is afebrile and has remained afebrile, denies coughing, no white count, oxygen requirement has decreased therefore we will continue to monitor without antibiotics. If patient's symptoms worsen then we will consider adding a course of antibiotics. Vitals are stable, labs are reviewed. Pending further cardio recs regarding if patient will undergo cardiac catheterization during this hospitalization. Patient states she was unable to sleep last night due to constant disturbance and noise and requested if she can try melatonin at night. Will add melatonin as needed. Patient has no other complaints Exam Vital Signs Temp Pulse Resp BP Pulse Ox O2 Del Method O2 Flow Rate 97.3 F 91 16 131/64 H 94 L Nasal Cannula 3 03/09/25 12:25 03/09/25 12:25 03/09/25 12:03/09/25 12:03/09/25 12:25 03/09/25 12:03/09/25 12:25 Narrative Exam GENERAL: A&Ox3 . Awake, Not in acute distress NEURO: no focal neurological deficits HEENT: Atraumatic, Normocephalic. mucous membranes moist. Eyes open, symmetrical, & clear HEART: systolic murmur heard LUNGS: Clear to auscultation with no wheezing or crackles. ABDOMEN: soft, non-distended, non-tender, bowel sounds heard, no guarding or rebound tenderness SKIN: No Rash or ecchymoses EXTREMITIES: 1+ non pitting edema bilaterally in LE, no tenderness, able to move all 4 extremities, pedal pulses palpated Objective Labs 03/13/25 05:42 03/13/25 05:42 Labs: Laboratory Results - last 24 hr 03/09/25 04:40 WBC 15.3 H RBC 3.00 L Hgb 11.0 L Hct 31.8 L MCV 106 H MCH 36.7 H MCHC 34.6 RDW Std Deviation 63.8 H Plt Count 428 D Neut % (Auto) 92 H Lymph % (Auto) 4 L [place] % (Auto) 1 Eos % (Auto) 0 Baso % (Auto) 0 Neut # (Auto) 14.0 H Lymph # (Auto) 0.6 L [place] # (Auto) 0.2 Eos # (Auto) 0.1 Baso # (Auto) 0.1 Immature Gran # (Auto) 0.32 H Absolute Nucleated RBC 0.00 Immature Gran % 2 H Nucleated RBC % 0 PT 14.0 H INR 1.3 APTT 35.3 Sodium 135 L Potassium 3.7 Chloride 94 L Carbon Dioxide 30.6 Anion Gap 10 BUN 17 Creatinine 0.7 Estim Creat Clear Calc 56.6 L eGFR > 60 BUN/Creatinine Ratio 24 H Glucose 103 Calculated Osmolality 271 L Calcium 8.6 Corrected Calcium 9.2 Magnesium 1.7 Total Bilirubin 1.4 H AST 20 ALT 9 L Alkaline Phosphatase 46 Total Protein 5.7 Albumin 3.3 L Globulin 2.4 Albumin/Globulin Ratio 1.4 ABG Interpretation ABG results: 03/07/25 14:41 VBG pH 7.49 VBG pCO2 37 VBG pO2 43 VBG Base Excess 5 H Quality Measures Quality Measures none Advance care planning discussed with:: patient Assessment & Plan Assessment Current Active Medications: Generic Name Dose Route Start Last Admin Trade Name Freq PRN Reason Stop Dose Admin Acetaminophen 650 mg 03/08/25 09:19 Acetaminophen 325 Mg Tablet PO 04/06/25 19:54 Q6H PRN pain(1-3) and Fever >100.4 Hydrocodone Bitart/Acetaminophen 1 tab 03/07/25 19:55 03/08/25 10:48 Hydrocodone/Apap 5/325 Tablet PO 03/12/25 19:54 1 tab Q4HR PRN Administration PAIN SCALE 4-10(Mod-Sev Albuterol/Ipratropium 3 ml 03/07/25 19:55 03/09/25 05:24 Albuterol/Ipratropium (Duoneb) Rt Luciana 3 Ml Nebu INH 04/06/25 22:59 3 ml Q4HRRT PRN Administration SOB or Wheezing Apixaban 2.5 mg 03/07/25 21:00 03/09/25 09:00 Apixaban 2.5 Mg Tablet PO 04/06/25 20:59 Not Given BID HEIKE Bumetanide 1 mg 03/07/25 21:00 03/09/25 08:10 Bumetanide Inj 0.25 Mg/Ml Vial 4 Ml IVP 04/06/25 20:59 1 mg BID HEIKE Administration Carvedilol 12.5 mg 03/08/25 08:00 03/09/25 08:10 Carvedilol 12.5 Mg Tablet PO 04/07/25 07:59 12.5 mg BIDWM HEIKE Administration Ondansetron HCl 4 mg 03/07/25 19:55 Ondansetron Inj 2 Mg/Ml Inj 2 Ml IVP 04/06/25 19:54 Q6H PRN NAUSEA OR VOMITING Protocol Pantoprazole Sodium 40 mg 03/08/25 09:00 03/09/25 08:10 Pantoprazole 40 Mg Tablet PO 04/07/25 08:59 40 mg QDAY HEIKE Administration Plan Ms. Mccormack is a 84-year-old female with a past medical history of severe aortic stenosis, CAD status post stents, HFpEF (65% EF on 01/2025), A-fib on Eliquis, CVA 2017, polycythemia vera, pulmonary fibrosis on 2 L home O2 (baseline SpO2 95%), hypertension, gout, chronic UTIs was admitted to the hospital on 03/07/2025 for syncopal episode likely in the setting of severe aortic stenosis and for acute decompensated heart failure exacerbation. #Syncopal episode #Acute decompensated heart failure exacerbation #Hx of severe aortic stenosis #Hx of HFpEF (65% EF on 01/2025) #Hx of CAD s/p stents #Hx of A-fib (on Eliquis) Patient came in after having a syncopal episode today in the rehab center where she went to the bathroom. Patient does have a history of severe aortic stenosis seen on echo on previous admission on January and she was supposed to follow-up with cardiology for possible TAVR. Patient has not follow-up with cardiology for TAVR as per patient's son. Patient head CT was negative and EKG showed A-fib. Patient's chest x-ray again showed CHF pattern and some possible superimposed pneumonia, but seems more like pulmonary edema than actual pneumonia. Patient has 1+ peripheral edema Plan: Admit to telemetry Bumex 1 mg twice daily IV Restart carvedilol 12.5 mg twice daily and Eliquis 2.5 mg twice daily Strict ALEX's Daily weights Low-sodium diet Fluid restrictions at 1800 Keep potassium magnesium above 4 and 2 respectively Order procalcitonin to evaluate if patient could be having underlying pneumonia, will start antibiotics if procalcitonin comes back elevated, otherwise more likely CHF exacerbation. Cardiology consulted, appreciate commendations Will continue to monitor #Hx of polycythemia vera #Hx of pulmonary fibrosis on 2 L home O2 #Hx of gout #Hx of chronic UTIs #Hx of CVA 2018 #Hx of hypertension #Hx of macrocytic anemia No active signs of bleeding and hemoglobin stable Blood pressure was mildly elevated on admission Pending med reconciliation for rest of medications Disposition: Patient admitted to telemetry for syncopal episode. Diet: Cardiac, 1800 ml GI prophylaxis: protonix DVT prophylaxis: Eliquis Code:DNR/DNI Assessment and plan discussed with my attending physician Dr. Danielle Ladd (PGY-1)- Internal medicine resident Attending Provider Attestation/Addendum Face to face evaluation was performed by me. I have personally seen and examined the patient. I discussed the assessment and plan with the entire medicine team. I reviewed available medical records, imaging studies, laboratory results. I agree with the above subjective data, objective findings, assessment and plan except as corrected by me or noted below Syncope, could be cardiac from severe aortic stenosis Severe arctic stenosis Acute hypoxic respiratory failure Acute on chronic diastolic heart failure decompensated coronary artery disease Cough - IV diuresis Bumex, cardiology on board appreciate help - Considering adding antibiotics procalcitonin was not elevated - Cardiology recommending left heart catheterization if patient is agreeable?timing to be decided More than > 30 minutes spent on the encounter
[2025-03-09] MEDS: MELATONIN 3 MG TABLET PO (21:52)
[2025-03-09] MEDS: BENZONATATE 100 MG CAPSULE PO (22:11)
[2025-03-10] VITALS (15 sets, daily range): BP systolic 111–154; BP diastolic 62–81; PULSE 68–86; RESP 14–20; TEMP 36.1–36.3; O2SAT 94–98; BMI 23.2
[2025-03-10 06:27] LABS: Basophils # (Auto) 0.1 Thou/mm3 (0.0-0.2); Basophils % (Auto) 0 % (0-2.5); Eosinophils # (Auto) 0.1 Thou/mm3 (0.0-0.5); Eosinophils % (Auto) 0 % (0-10); Hematocrit 32.6 % (36.0-46.0); Hemoglobin 11.2 g/dL (12.0-16.0); Immature Granulocytes % (Auto) 3 % (0-0); Immature Granulocytes Auto 0.36 Thou/mm3 (0.00-0.00); Lymphocytes # (Auto) 0.5 Thou/mm3 (1.0-4.8); Lymphocytes % (Auto) 4 % (10-50); Mean Corpuscular HGB Conc 34.4 g/dl (31.0-37.0); Mean Corpuscular Volume 108 fL (80-100); Monocytes # (Auto) 0.2 Thou/mm3 (0.0-0.8); Monocytes % (Auto) 2 % (0-12); Neutrophils # (Auto) 12.9 Thou/mm3 (1.8-7.7); Neutrophils % (Auto) 91 % (37-80); Nucleated Red Blood Cell # 0.02 Thou/mm3 (0.00-0.00); Nucleated Red Blood Cell % 0 /100 WBC (0); Platelet Count 412 Thou/mm3 (140-440); RDW Standard Deviation 67.2 fL (36.4-46.3); Red Blood Count 3.03 Miln/mm3 (4.00-5.20); White Blood Count 14.1 Thou/mm3 (3.6-11.0)
[2025-03-10 07:09] LABS: Alanine Aminotransferase < 7 U/L (10-49); Albumin, Serum 3.3 gm/dL (3.4-4.8); Albumin/Globulin Ratio 1.5 (1.2-2.2); Alkaline Phosphatase 45 U/L (46-116); Anion Gap 11 (7-16); Aspartate Amino Transferase 17 U/L (0-34); BUN/Creatinine Ratio 21 Ratio (12-20); Bilirubin,Total 1.4 mg/dL (0.3-1.2); Blood Urea Nitrogen 15 mg/dL (9-23); Calcium 8.6 mg/dL (8.3-10.6); Calcium (Corrected) 9.2 mg/dL (8.5-10.1); Carbon Dioxide 31.6 mMol/L (20.0-31.0); Chloride 92 mMol/L (98-107); Creatinine (Component) 0.7 mg/dL (0.6-1.3); Estimated Creatinine Clearance 51.7 mL/min (>60); Globulin 2.2 gm/dL (2.3-3.5); Glucose 103 mg/dL (74-106); Magnesium 1.4 mg/dL (1.6-2.6); Osmolality,Calculated 270 (275-295); Potassium 3.4 mMol/L (3.4-5.1); Sodium 135 mMol/L (136-145); Total Protein 5.5 gm/dL (5.7-8.2); eGFR > 60 See Note
[2025-03-10] MEDS: carVEDILOL 12.5 MG TABLET PO ×2 (09:20→17:51)
[2025-03-10] MEDS: BUMETANIDE INJ 0.25 MG/ML VIAL 4 ML 1 MG IVP ×2 (09:21→20:19)
[2025-03-10] MEDS: PANTOPRAZOLE 40 MG TABLET PO (09:21)
[2025-03-10] MEDS: guaiFENesin ER 600 MG TABCR PO ×2 (09:21→20:21)
--- NOTE | 2025-03-10 11:11 | PC.NURSE ---
per Dr Hansen, hold eliquis for now, she will check with Dr. Richards re: possible angiogram
[2025-03-10] MEDS: POTASSIUM CHLORIDE 20 mEq TABCR 40 MEQ PO (11:20)
[2025-03-10] MEDS: Magnesium Sulfate 4 GM Ivpb 4 GM/50 ML BAG IV (11:20)
[2025-03-10] MEDS: cefTRIAXone/D5w 1gm IV premix 1 GM/50 ML BAG IV (13:05)
[2025-03-10] MEDS: APIXABAN 2.5 MG TABLET PO ×2 (13:05→20:21)
[2025-03-10] MEDS: AZITHROMYCIN INJ 500 MG in SODIUM CHLORIDE 0.9% 250 ML 250 ML 250 MG IV (13:56)
--- NOTE | 2025-03-10 14:28 | ESPR_ITS ---
Documentation for date of: 03/10/25 Subjective Subjective Interval history: No acute events overnight.?Patient seen and examined at bedside this AM.?Patient reports that she had cough at night, benzonatate was initiated which helped with symptoms. Due to cough with phelgm, IV antibiotics ceftriaxone and azithromycin were initiated for suspicion of pneumonia. Patient reports that melatonin also helped her sleep. Labs and vitals were reviewed. No fevers overnight. Patient remains on 3L nasal cannula. WBC is downtrending.?Potassium 3.4 repleted with 40 mEq and magnesium 1.4 repleted with 4 g IV. Fluids output has not been recorded as patient is incontinent using brief. Will continue diuresis with Bumex 1 mg BID and monitor labs closely. Patient is expressing hesitancy towards having cath procedure, she does not feel that it is worth the risk at her current age as she would not want aggressive intervention. She feels that it has been difficult to express her opinion to the doctors as she wants to go along with the plan. Discussed with Cardiology, will follow up with recommendations. Continue Eliquis for now. No further complaints at this time. Review of systems otherwise negative except what is mentioned above. Exam Vital Signs Temp Pulse Resp BP Pulse Ox O2 Del Method O2 Flow Rate 97.1 F 68 15 111/63 96 Nasal Cannula 3 03/10/25 12:00 03/10/25 12:00 03/10/25 12:00 03/10/25 12:00 03/10/25 12:00 03/10/25 12:00 03/10/25 12:00 Narrative Exam GENERAL: A&Ox3 . Awake, Not in acute distress NEURO: no focal neurological deficits HEENT: Atraumatic, Normocephalic. mucous membranes moist. Eyes open, symmetrical, & clear HEART: systolic murmur heard LUNGS: Clear to auscultation with no wheezing or crackles. ABDOMEN: soft, non-distended, non-tender, bowel sounds heard, no guarding or rebound tenderness SKIN: No Rash or ecchymoses EXTREMITIES: 1+ non pitting edema bilaterally in LE, no tenderness, able to move all 4 extremities, pedal pulses palpated Objective Labs 03/13/25 05:42 03/13/25 05:42 Labs: Laboratory Results - last 24 hr 03/10/25 05:20 WBC 14.1 H RBC 3.03 L Hgb 11.2 L Hct 32.6 L MCV 108 H MCH 37.0 H MCHC 34.4 RDW Std Deviation 67.2 H Plt Count 412 Neut % (Auto) 91 H Lymph % (Auto) 4 L [place] % (Auto) 2 Eos % (Auto) 0 Baso % (Auto) 0 Neut # (Auto) 12.9 H Lymph # (Auto) 0.5 L [place] # (Auto) 0.2 Eos # (Auto) 0.1 Baso # (Auto) 0.1 Immature Gran # (Auto) 0.36 H Absolute Nucleated RBC 0.02 H Immature Gran % 3 H Nucleated RBC % 0 Sodium 135 L Potassium 3.4 Chloride 92 L Carbon Dioxide 31.6 H Anion Gap 11 BUN 15 Creatinine 0.7 Estim Creat Clear Calc 51.7 L eGFR > 60 BUN/Creatinine Ratio 21 H Glucose 103 Calculated Osmolality 270 L Calcium 8.6 Corrected Calcium 9.2 Magnesium 1.4 L Total Bilirubin 1.4 H AST 17 ALT < 7 L Alkaline Phosphatase 45 L Total Protein 5.5 L Albumin 3.3 L Globulin 2.2 L Albumin/Globulin Ratio 1.5 ABG Interpretation ABG results: 03/07/25 14:41 VBG pH 7.49 VBG pCO2 37 VBG pO2 43 VBG Base Excess 5 H Quality Measures Quality Measures none Advance care planning discussed with:: patient Assessment & Plan Assessment Current Active Medications: Generic Name Dose Route Start Last Admin Trade Name Freq PRN Reason Stop Dose Admin Acetaminophen 650 mg 03/08/25 09:19 Acetaminophen 325 Mg Tablet PO 04/06/25 19:54 Q6H PRN pain(1-3) and Fever >100.4 Hydrocodone Bitart/Acetaminophen 1 tab 03/07/25 19:55 03/08/25 10:48 Hydrocodone/Apap 5/325 Tablet PO 03/12/25 19:54 1 tab Q4HR PRN Administration PAIN SCALE 4-10(Mod-Sev Albuterol/Ipratropium 3 ml 03/07/25 19:55 03/09/25 05:24 Albuterol/Ipratropium (Duoneb) Rt Luciana 3 Ml Nebu INH 04/06/25 22:59 3 ml Q4HRRT PRN Administration SOB or Wheezing Apixaban 2.5 mg 03/07/25 21:00 03/10/25 13:05 Apixaban 2.5 Mg Tablet PO 04/06/25 20:59 2.5 mg BID HEIKE Administration Benzonatate 100 mg 03/09/25 21:57 03/09/25 22:11 Benzonatate 100 Mg Capsule PO 04/08/25 21:56 100 mg Q8HR PRN Administration COUGH Protocol Bumetanide 1 mg 03/07/25 21:00 03/10/25 09:21 Bumetanide Inj 0.25 Mg/Ml Vial 4 Ml IVP 04/06/25 20:59 1 mg BID HEIKE Administration Carvedilol 12.5 mg 03/08/25 08:00 03/10/25 09:20 Carvedilol 12.5 Mg Tablet PO 04/07/25 07:59 12.5 mg BIDWM HEIKE Administration Guaifenesin 600 mg 03/10/25 09:00 03/10/25 09:21 Guaifenesin Er 600 Mg Tabcr PO 04/09/25 08:59 600 mg BID HEIKE Administration Ceftriaxone Sodium/Dextrose 1 gm in 50 mls @ 100 mls/hr 03/10/25 12:37 03/10/25 13:05 Rocephin/D5w 1gm Iv Premix IV 03/17/25 12:36 100 mls/hr QDAY HEIKE Administration Azithromycin 500 mg/ Sodium 250 mls @ 250 mls/hr 03/10/25 12:37 03/10/25 13:56 Chloride IV 03/17/25 12:36 250 mls/hr QDAY HEIKE Administration Melatonin 3 mg 03/09/25 17:21 Melatonin 3 Mg Tablet PO 04/08/25 20:59 HS PRN insomnia Ondansetron HCl 4 mg 03/07/25 19:55 Ondansetron Inj 2 Mg/Ml Inj 2 Ml IVP 04/06/25 19:54 Q6H PRN NAUSEA OR VOMITING Protocol Pantoprazole Sodium 40 mg 03/08/25 09:00 03/10/25 09:21 Pantoprazole 40 Mg Tablet PO 04/07/25 08:59 40 mg QDAY HEIKE Administration Plan Ms. Mccormack is a 84-year-old female with a past medical history of severe aortic stenosis, CAD status post stents, HFpEF (65% EF on 01/2025), A-fib on Eliquis, CVA 2018, polycythemia vera, pulmonary fibrosis on 2 L home O2 (baseline SpO2 95%), hypertension, gout, chronic UTIs was admitted to the hospital on 03/07/2025 for syncopal episode likely in the setting of severe aortic stenosis and for acute decompensated heart failure exacerbation. #Syncopal episode #Acute decompensated heart failure exacerbation #Hx of severe aortic stenosis #Hx of HFpEF (65% EF on 01/2025) #Hx of CAD s/p stents #Hx of A-fib (on Eliquis) Patient came in after having a syncopal episode today in the rehab center where she went to the bathroom. Patient does have a history of severe aortic stenosis seen on echo on previous admission on January and she was supposed to follow-up with cardiology for possible TAVR. Patient has not follow-up with cardiology for TAVR as per patient's son. Patient head CT was negative and EKG showed A-fib. Patient's chest x-ray again showed CHF pattern and some possible superimposed pneumonia, but seems more like pulmonary edema than actual pneumonia. Patient has 1+ peripheral edema -Continue Bumex 1 mg twice daily IV -Continue carvedilol 12.5 mg twice daily -Continue Eliquis 2.5 mg twice daily -Strict ALEX's -Daily weights -Cardiac diet, dysphagia 3 chopped -Fluid restrictions at 1800 -Keep potassium magnesium above 4 and 2 respectively -Cardiology following, appreciate recommendations -Will continue to monitor #Hx of polycythemia vera #Hx of pulmonary fibrosis on 2 L home O2 #Hx of gout #Hx of chronic UTIs #Hx of CVA 2018 #Hx of hypertension #Hx of macrocytic anemia No active signs of bleeding and hemoglobin stable Blood pressure was mildly elevated on admission -Holding home benazepril due to normotension Disposition: Patient admitted to telemetry for syncopal episode. Diet: Cardiac, 1800 ml GI prophylaxis: protonix DVT prophylaxis: Eliquis Code:DNR/DNI Patient plan of care was discussed with the attending physician, Dr. Santos. Ariana Hansen, PGY-2 Attending Provider Attestation/Addendum Face to face evaluation was performed by me. I have personally seen and examined the patient. I discussed the assessment and plan with the entire medicine team. I reviewed available medical records, imaging studies, laboratory results. I agree with the above subjective data, objective findings, assessment and plan except as corrected by me or noted below Syncope, could be cardiac from severe aortic stenosis Severe arctic stenosis Acute hypoxic respiratory failure Acute on chronic diastolic heart failure decompensated coronary artery disease Cough - IV diuresis Bumex, cardiology on board appreciate help consider weaning down Bumex - Empiric antibiotics added / monitor clinical course closely - Cardiology recommending left heart catheterization if patient is agreeable?timing to be decided More than > 30 minutes spent on the encounter
--- NOTE | 2025-03-10 15:51 | PC.SS ---
SS follow up note; Cardiolist following, on IV dieresis. Patient will discharge back to [facility], Auth pending
[2025-03-10] MEDS: POTASSIUM CHL 10 mEq IVPB 10 MEQ/100 ML BAG 100 MEQ IV ×2 (17:08→20:09)
[2025-03-10] MEDS: MELATONIN 3 MG TABLET PO (20:21)
[2025-03-11] VITALS (11 sets, daily range): BP systolic 120–156; BP diastolic 69–77; PULSE 81–97; RESP 14–19; TEMP 36.1–36.6; O2SAT 94–97; BMI 23.8
--- NOTE | 2025-03-11 00:16 | ESPR_ITS ---
RE: TORREY MCCORMACK : 1940 DATE OF SERVICE: 03/10/2025 SUBJECTIVE: Torrey Mccormack appears to be doing reasonably well, but still having a lot of weakness and shortness of breath. She does not complain of any chest pain. Still having a lot of cough and phlegm. The patient has extensive infiltrate in the right lung, possible pneumonia. Started on antibiotic therapy, saturating well. Initial white count was high, though it is trending downwards. The patient is still feeling extremely weak, not able to do coronary angiogram. The patient has severe clinical and critical aortic stenosis, definitely contributing to her shortness of breath. ALLERGIES: NONE. MEDICATIONS: She was started on antibiotic therapy upon discussion with resident physician. OBJECTIVE: Vital Signs: Blood pressure 140/60, pulse 74. Neck: Supple. Lungs: Decreased breath sounds. Heart: S1, S2. regular. Loud systolic murmur is heard. Abdomen: Thin and soft. Extremities: Mild edema. IMPRESSION: 1. Right lower lobe pneumonia, possibly causing shortness of breath. 2. Severe and critical aortic stenosis. 3. Coronary artery disease status post multivessel stent placement. 4. General weakness. 5. History of polycythemia. RECOMMENDATIONS: Continue intravenous antibiotic therapy. She has chronic atrial fibrillation, Eliquis will be continued. If the patient is not willing to have any intervention, we will not require coronary angiogram, but if she does have willingness to intervene, we will do cardiac catheterization but not right now. DT: 21:03:38 TT: 00:14:00 Ref: [id number] - TID: [id number]
[2025-03-11 06:27] LABS: Basophils # (Auto) 0.1 Thou/mm3 (0.0-0.2); Basophils % (Auto) 0 % (0-2.5); Eosinophils # (Auto) 0.1 Thou/mm3 (0.0-0.5); Eosinophils % (Auto) 0 % (0-10); Hematocrit 31.7 % (36.0-46.0); Hemoglobin 11.2 g/dL (12.0-16.0); Immature Granulocytes % (Auto) 2 % (0-0); Immature Granulocytes Auto 0.31 Thou/mm3 (0.00-0.00); Lymphocytes # (Auto) 0.6 Thou/mm3 (1.0-4.8); Lymphocytes % (Auto) 3 % (10-50); Mean Corpuscular HGB Conc 35.3 g/dl (31.0-37.0); Mean Corpuscular Hemoglobin 38.4 pg (25.0-35.0); Mean Corpuscular Volume 109 fL (80-100); Monocytes # (Auto) 0.4 Thou/mm3 (0.0-0.8); Monocytes % (Auto) 2 % (0-12); Neutrophils # (Auto) 17.3 Thou/mm3 (1.8-7.7); Neutrophils % (Auto) 93 % (37-80); Nucleated Red Blood Cell # 0.02 Thou/mm3 (0.00-0.00); Nucleated Red Blood Cell % 0 /100 WBC (0); Platelet Count 352 Thou/mm3 (140-440); RDW Standard Deviation 66.8 fL (36.4-46.3); Red Blood Count 2.92 Miln/mm3 (4.00-5.20); White Blood Count 18.6 Thou/mm3 (3.6-11.0)
[2025-03-11] MEDS: BUMETANIDE INJ 0.25 MG/ML VIAL 4 ML 1 MG IVP (08:03)
[2025-03-11] MEDS: cefTRIAXone/D5w 1gm IV premix 1 GM/50 ML BAG IV (08:03)
[2025-03-11] MEDS: AZITHROMYCIN INJ 500 MG in SODIUM CHLORIDE 0.9% 250 ML 250 ML 250 MG IV (08:03)
[2025-03-11] MEDS: guaiFENesin ER 600 MG TABCR PO ×2 (08:04→20:22)
[2025-03-11] MEDS: MONTELUKAST SODIUM 10 MG TABLET PO (08:04)
[2025-03-11] MEDS: APIXABAN 2.5 MG TABLET PO ×2 (08:05→20:22)
[2025-03-11] MEDS: allopurinoL 100 MG TABLET 300 MG PO (08:05)
[2025-03-11] MEDS: carVEDILOL 12.5 MG TABLET PO ×2 (08:05→18:52)
[2025-03-11] MEDS: PANTOPRAZOLE 40 MG TABLET PO (08:05)
[2025-03-11 10:18] LABS: Alanine Aminotransferase < 7 U/L (10-49); Albumin, Serum 3.5 gm/dL (3.4-4.8); Albumin/Globulin Ratio 1.5 (1.2-2.2); Alkaline Phosphatase 50 U/L (46-116); Anion Gap 9 (7-16); Aspartate Amino Transferase 19 U/L (0-34); BUN/Creatinine Ratio 19 Ratio (12-20); Bilirubin,Total 1.1 mg/dL (0.3-1.2); Blood Urea Nitrogen 15 mg/dL (9-23); Calcium 8.6 mg/dL (8.3-10.6); Carbon Dioxide 29.7 mMol/L (20.0-31.0); Chloride 91 mMol/L (98-107); Creatinine (Component) 0.8 mg/dL (0.6-1.3); Estimated Creatinine Clearance 45.2 mL/min (>60); Globulin 2.4 gm/dL (2.3-3.5); Glucose 144 mg/dL (74-106); Magnesium 1.5 mg/dL (1.6-2.6); Osmolality,Calculated 264 (275-295); Phosphorous 3.2 mg/dL (2.4-5.1); Sodium 130 mMol/L (136-145); Total Protein 5.9 gm/dL (5.7-8.2); eGFR > 60 See Note
--- NOTE | 2025-03-11 10:18 | PD.RESPRO ---
Documentation for date of: 03/11/25 Subjective Subjective Interval history: No acute overnight events reported patient seen and examined at bedside this morning. Patient is currently saturating above 94% on 2 L oxygen. Patient states she is very tired because she did not sleep last night. She continues to have some shortness of breath but denies any chest pain, palpitation or dizziness. 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 Will continue to monitor patient for improvement. Per cardiology recommendation, will continue to monitor patient's symptomatic improvement and will continue IV antibiotics and when patient is well will consider cardiac cath likely outpatient. Vitals are stable labs are reviewed leukocyte count is uptrending 18.6 patient is currently on azithromycin and Rocephin for treatment of pneumonia. Due to hyponatremia noted in labs (Na 130) will decrease bumex to once daily). Exam Vital Signs Temp Pulse Resp BP Pulse Ox O2 Del Method O2 Flow Rate 97.4 F 81 16 156/75 H 94 L Nasal Cannula 2 03/11/25 08:00 03/11/25 08:05 03/11/25 08:00 03/11/25 08:05 03/11/25 08:00 03/11/25 08:00 03/11/25 08:00 Narrative Exam GENERAL: A&Ox3 . Awake, Not in acute distress NEURO: no focal neurological deficits HEENT: Atraumatic, Normocephalic. mucous membranes moist. Eyes open, symmetrical, & clear HEART: systolic murmur heard LUNGS: Clear to auscultation with no wheezing or crackles. ABDOMEN: soft, non-distended, non-tender, bowel sounds heard, no guarding or rebound tenderness SKIN: No Rash or ecchymoses EXTREMITIES: 1+ non pitting edema bilaterally in LE, no tenderness, able to move all 4 extremities, pedal pulses palpated Objective Labs 03/13/25 05:42 03/13/25 05:42 Labs: Laboratory Results - last 24 hr 03/11/25 05:50 WBC 18.6 H RBC 2.92 L Hgb 11.2 L Hct 31.7 L MCV 109 H MCH 38.4 H MCHC 35.3 RDW Std Deviation 66.8 H Plt Count 352 D Neut % (Auto) 93 H Lymph % (Auto) 3 L [place] % (Auto) 2 Eos % (Auto) 0 Baso % (Auto) 0 Neut # (Auto) 17.3 H Lymph # (Auto) 0.6 L [place] # (Auto) 0.4 Eos # (Auto) 0.1 Baso # (Auto) 0.1 Immature Gran # (Auto) 0.31 H Absolute Nucleated RBC 0.02 H Immature Gran % 2 H Nucleated RBC % 0 ABG Interpretation ABG results: 03/07/25 14:41 VBG pH 7.49 VBG pCO2 37 VBG pO2 43 VBG Base Excess 5 H Quality Measures Quality Measures none Advance care planning discussed with:: patient Assessment & Plan Assessment Current Active Medications: Generic Name Dose Route Start Last Admin Trade Name Freq PRN Reason Stop Dose Admin Acetaminophen 650 mg 03/08/25 09:19 Acetaminophen 325 Mg Tablet PO 04/06/25 19:54 Q6H PRN pain(1-3) and Fever >100.4 Hydrocodone Bitart/Acetaminophen 1 tab 03/07/25 19:55 03/08/25 10:48 Hydrocodone/Apap 5/325 Tablet PO 03/12/25 19:54 1 tab Q4HR PRN Administration PAIN SCALE 4-10(Mod-Sev Albuterol/Ipratropium 3 ml 03/07/25 19:55 03/09/25 05:24 Albuterol/Ipratropium (Duoneb) Rt Luciana 3 Ml Nebu INH 04/06/25 22:59 3 ml Q4HRRT PRN Administration SOB or Wheezing Allopurinol 300 mg 03/11/25 09:00 03/11/25 08:05 Allopurinol 100 Mg Tablet PO 04/10/25 08:59 300 mg QDAY HEIKE Administration Apixaban 2.5 mg 03/07/25 21:00 03/11/25 08:05 Apixaban 2.5 Mg Tablet PO 04/06/25 20:59 2.5 mg BID HEIKE Administration Benzonatate 100 mg 03/09/25 21:57 03/09/25 22:11 Benzonatate 100 Mg Capsule PO 04/08/25 21:56 100 mg Q8HR PRN Administration COUGH Protocol Bumetanide 1 mg 03/07/25 21:00 03/11/25 08:03 Bumetanide Inj 0.25 Mg/Ml Vial 4 Ml IVP 04/06/25 20:59 1 mg BID HEIKE Administration Carvedilol 12.5 mg 03/08/25 08:00 03/11/25 08:05 Carvedilol 12.5 Mg Tablet PO 04/07/25 07:59 12.5 mg BIDWM HEIKE Administration Guaifenesin 600 mg 03/10/25 09:00 03/11/25 08:04 Guaifenesin Er 600 Mg Tabcr PO 04/09/25 08:59 600 mg BID HEIKE Administration Ceftriaxone Sodium/Dextrose 1 gm in 50 mls @ 100 mls/hr 03/10/25 12:37 03/11/25 08:03 Rocephin/D5w 1gm Iv Premix IV 03/17/25 12:36 100 mls/hr QDAY HEIKE Administration Azithromycin 500 mg/ Sodium 250 mls @ 250 mls/hr 03/10/25 12:37 03/11/25 08:03 Chloride IV 03/17/25 12:36 250 mls/hr QDAY HEIKE Administration Melatonin 3 mg 03/09/25 17:21 03/10/25 20:21 Melatonin 3 Mg Tablet PO 04/08/25 20:59 3 mg HS PRN Administration insomnia Montelukast Sodium 10 mg 03/11/25 09:00 03/11/25 08:04 Montelukast Sodium 10 Mg Tablet PO 04/10/25 08:59 10 mg QDAY HEIKE Administration Nitroglycerin 0.4 mg 03/10/25 16:53 Nitroglycerin 0.4 Mg Subl Btl #25 SL 03/15/25 16:52 Q5M PRN Chest Pain Ondansetron HCl 4 mg 03/07/25 19:55 Ondansetron Inj 2 Mg/Ml Inj 2 Ml IVP 04/06/25 19:54 Q6H PRN NAUSEA OR VOMITING Protocol Pantoprazole Sodium 40 mg 03/08/25 09:00 03/11/25 08:05 Pantoprazole 40 Mg Tablet PO 04/07/25 08:59 40 mg QDAY HEIKE Administration Plan Ms. Mccormack is a 84-year-old female with a past medical history of severe aortic stenosis, CAD status post stents, HFpEF (65% EF on 01/2025), A-fib on Eliquis, CVA 2017, polycythemia vera, pulmonary fibrosis on 2 L home O2 (baseline SpO2 95%), hypertension, gout, chronic UTIs was admitted to the hospital on 03/07/2025 for syncopal episode likely in the setting of severe aortic stenosis and for acute decompensated heart failure exacerbation. #Acute hypoxic respiratory failure #Community-acquired pneumonia - Although patient's oxygen requirement increased from her home oxygen of 2 L to 4 L on admission. Patient's symptoms were initially likely attributed to acute CHF exacerbation. However chest x-ray is suspicious for superimposed pneumonia and patient did complain of cough with increased phlegm. Plan: - DuoNebs as needed - Supplemental oxygen - Patient is afebrile therefore no blood cultures were needed as previous blood cultures from March 07 had no growth at 48 hours - Started ceftriaxone and azithromycin on 03/10- #Syncopal episode #Acute decompensated heart failure exacerbation #Hx of severe aortic stenosis #Hx of HFpEF (65% EF on 01/2025) #Hx of CAD s/p stents #Hx of A-fib (on Eliquis) Patient came in after having a syncopal episode today in the rehab center where she went to the bathroom. Patient does have a history of severe aortic stenosis seen on echo on previous admission on January and she was supposed to follow-up with cardiology for possible TAVR. Patient has not follow-up with cardiology for TAVR as per patient's son. Patient head CT was negative and EKG showed A-fib. Patient's chest x-ray again showed CHF pattern and some possible superimposed pneumonia, but seems more like pulmonary edema than actual pneumonia. Patient has 1+ peripheral edema -Continue Bumex 1 mg IV once daily -Continue carvedilol 12.5 mg twice daily -Continue Eliquis 2.5 mg twice daily -Strict ALEX's -Daily weights -Cardiac diet, dysphagia 3 chopped -Fluid restrictions at 1800 -Keep potassium magnesium above 4 and 2 respectively -Cardiology following, appreciate recommendations -Will continue to monitor #Hx of polycythemia vera #Hx of pulmonary fibrosis on 2 L home O2 #Hx of gout #Hx of chronic UTIs #Hx of CVA 2018 #Hx of hypertension #Hx of macrocytic anemia No active signs of bleeding and hemoglobin stable Blood pressure was mildly elevated on admission -Holding home benazepril due to normotension Disposition: Patient admitted to telemetry for syncopal episode. Diet: Cardiac, 1800 ml GI prophylaxis: protonix DVT prophylaxis: Eliquis Code:DNR/DNI Assessment and plan discussed with my attending physician Dr. Danielle Ladd (PGY-1)- Internal medicine resident Attending Provider Attestation/Addendum Face to face evaluation was performed by me. I have personally seen and examined the patient. I discussed the assessment and plan with the entire medicine team. I reviewed available medical records, imaging studies, laboratory results. I agree with the above subjective data, objective findings, assessment and plan except as corrected by me or noted below Syncope, could be cardiac from severe aortic stenosis Severe arctic stenosis Acute hypoxic respiratory failure Acute on chronic diastolic heart failure decompensated coronary artery disease Cough Hyponatremia suspect multifactorial could be hypovolemic from diuresis as well as SIADH from pulmonary edema and pneumonia. - IV diuresis Bumex , dosage decreased to 1 mg daily cardiology on board. Greatly appreciate help - Continue antibiotics as ordered - Cardiology recommending left heart catheterization if patient is agreeable?timing to be decided More than > 30 minutes spent on the encounter
[2025-03-11] MEDS: Magnesium Sulfate 4 GM Ivpb 4 GM/50 ML BAG IV (11:57)
--- NOTE | 2025-03-11 19:59 | ESPR_ITS ---
RE: TORREY MCCORMACK : 1940 DATE OF SERVICE: 03/11/2025 SUBJECTIVE: Torrey Mccormack is an 84-year-old had multiple medical problems including , chronic atrial fibrillation, coronary artery disease, and severe aortic stenosis. She presented with definite generalized weakness and tiredness. She has had white blood cell count elevation, today once again 18.6. Chest x-ray on admission showed pneumonia. Did not have a repeat chest x-ray since then. She was tried on multiple antibiotics yesterday. Clinically, she is not doing _ well. She is really weak and complains of cough but no expectoration. OBJECTIVE: Vital Signs: Blood pressure 148/74, pulse . Neck: Supple. No JVD. Lungs: Clear. Heart: Heart sounds are regular. Systolic murmur is heard loud of aortic stenosis. Abdomen: Thin and soft. Extremities: Mild edema. Neurologic: Overall, she lost a lot of weight with muscle mass and failure to thrive. IMPRESSION: 1. Extensive right lower lobe pneumonia. 2. Chronic atrial fibrillation. 3. Severe calcific aortic stenosis. 4. Failure to thrive with significant weight loss. RECOMMENDATIONS: 1. Continue antibiotic therapy. 2. No plans for cardiac catheterization since she is too weak and she may not be a candidate for transcatheter aortic valve replacement at this point unless she improves significantly. DT: 18:02:22 TT: 19:57:00 Ref: [id number] - TID: [id number] [facility]
[2025-03-11] MEDS: BENZONATATE 100 MG CAPSULE PO (20:22)
[2025-03-11] MEDS: MELATONIN 3 MG TABLET PO (20:22)
[2025-03-12] VITALS (12 sets, daily range): BP systolic 115–147; BP diastolic 65–95; PULSE 73–128; RESP 18–22; TEMP 36.1–36.6; O2SAT 95–99; BMI 23.8; BMI 13.0
[2025-03-12 06:11] LABS: Basophils # (Auto) 0.1 Thou/mm3 (0.0-0.2); Basophils % (Auto) 0 % (0-2.5); Eosinophils # (Auto) 0.1 Thou/mm3 (0.0-0.5); Eosinophils % (Auto) 0 % (0-10); Hematocrit 32.5 % (36.0-46.0); Immature Granulocytes % (Auto) 2 % (0-0); Immature Granulocytes Auto 0.42 Thou/mm3 (0.00-0.00); Lymphocytes # (Auto) 0.7 Thou/mm3 (1.0-4.8); Lymphocytes % (Auto) 3 % (10-50); Mean Corpuscular HGB Conc 33.8 g/dl (31.0-37.0); Mean Corpuscular Hemoglobin 36.5 pg (25.0-35.0); Mean Corpuscular Volume 108 fL (80-100); Monocytes # (Auto) 0.4 Thou/mm3 (0.0-0.8); Monocytes % (Auto) 2 % (0-12); Neutrophils % (Auto) 93 % (37-80); Nucleated Red Blood Cell % 0 /100 WBC (0); Platelet Count 493 Thou/mm3 (140-440); RDW Standard Deviation 67.4 fL (36.4-46.3); Red Blood Count 3.01 Miln/mm3 (4.00-5.20); White Blood Count 25.7 Thou/mm3 (3.6-11.0)
[2025-03-12 06:45] LABS: Alanine Aminotransferase < 7 U/L (10-49); Albumin, Serum 3.2 gm/dL (3.4-4.8); Albumin/Globulin Ratio 1.5 (1.2-2.2); Alkaline Phosphatase 47 U/L (46-116); Anion Gap 11 (7-16); Aspartate Amino Transferase 18 U/L (0-34); BUN/Creatinine Ratio 18 Ratio (12-20); Blood Urea Nitrogen 14 mg/dL (9-23); Calcium 8.3 mg/dL (8.3-10.6); Calcium (Corrected) 8.9 mg/dL (8.5-10.1); Carbon Dioxide 28.5 mMol/L (20.0-31.0); Chloride 91 mMol/L (98-107); Creatinine (Component) 0.8 mg/dL (0.6-1.3); Estimated Creatinine Clearance 45.2 mL/min (>60); Globulin 2.2 gm/dL (2.3-3.5); Glucose 108 mg/dL (74-106); Osmolality,Calculated 262 (275-295); Sodium 130 mMol/L (136-145); Total Protein 5.4 gm/dL (5.7-8.2); eGFR > 60 See Note
[2025-03-12] MEDS: ALBUTEROL/IPRATROPIUM (Duoneb) RT SOL 3 ML NEBU INH ×2 (07:12→21:02)
[2025-03-12] MEDS: MONTELUKAST SODIUM 10 MG TABLET PO (08:18)
[2025-03-12] MEDS: allopurinoL 100 MG TABLET 300 MG PO (08:18)
[2025-03-12] MEDS: APIXABAN 2.5 MG TABLET PO ×2 (08:18→20:48)
[2025-03-12] MEDS: cefTRIAXone/D5w 1gm IV premix 1 GM/50 ML BAG IV (08:18)
[2025-03-12] MEDS: guaiFENesin ER 600 MG TABCR PO ×2 (08:18→20:49)
[2025-03-12] MEDS: PANTOPRAZOLE 40 MG TABLET PO (08:18)
[2025-03-12] MEDS: SODIUM CHLORIDE 1 GM TABLET PO (08:19)
[2025-03-12] MEDS: BUMETANIDE INJ 0.25 MG/ML VIAL 4 ML 1 MG IVP (08:19)
[2025-03-12] MEDS: carVEDILOL 12.5 MG TABLET PO ×2 (08:19→16:44)
[2025-03-12] MEDS: AZITHROMYCIN INJ 500 MG in SODIUM CHLORIDE 0.9% 250 ML 250 ML 250 MG IV (08:47)
--- NOTE | 2025-03-12 10:01 | XR_ITS ---
Examination: AP lateral chest 2 views TECHNIQUE: AP upright lateral chest 2 views Date and time: March 12, 2025 1114 hours Comparison March 07, 2025 INDICATIONS: Inpatient with pneumonia difficulty breathing this week. FINDINGS: Mild enlargement cardiac contour with prominent vascular congestion including central vascular engorgement Perihilar basilar edema with significant pleural effusions noted on the lateral view Pulmonary mass left midlung again noted, 19 mm IMPRESSION: Mild heart failure Bilateral pneumonia Bilateral significant pleural effusions
[2025-03-12 10:27] LABS: Magnesium 2.1 mg/dL (1.6-2.6)
--- NOTE | 2025-03-12 11:07 | ESPR_ITS ---
RE: TORREY MCCORMACK : 1940 DATE OF SERVICE: 03/12/2025 SUBJECTIVE: Torrey Mccormack is an 84-year-old with a history of multiple medical problems admitted to the hospital with shortness of breath and cough, found to have pneumonia. White blood cell count continues to go up. She was quite lethargic yesterday. Today, she is little better. Still white blood cell count is 25,000 today despite antibiotics. Primary team already giving broad-spectrum antibiotics. She was continued on ceftriaxone and azithromycin. Diuretics dose have reduced because of hyponatremia. OBJECTIVE: Vital Signs: Blood pressure 140/90, pulse rate 95. Neck: Supple. No jugular venous distention. Lungs: Decreased breath sounds. No rales or rhonchi. Heart: S1, S2. Irregularly irregular, atrial fibrillation. Abdomen: Thin, soft. Extremities: No edema. ASSESSMENT: 1. Right lower lobe pneumonia. 2. Atrial fibrillation, chronic. 3. Coronary artery disease, multivessel stent placement. 4. Severe aortic stenosis. RECOMMENDATIONS: Continue antibiotic therapy. Aggressive management of pneumonia. The patient is extremely frail and weak. No plans for coronary angiogram or cardiac catheterization. DT: 10:05:10 TT: 11:06:00 Ref: [id number] - TID: [id number]
--- NOTE | 2025-03-12 11:37 | PD.RESPRO ---
Documentation for date of: 03/12/25 Subjective Subjective Interval history: No acute overnight events reported. Patient seen and examined at bedside this morning. Patient appears to be well rested and states that she was able to get some sleep. Patient is saturating above 94% on 2 L of oxygen, continues to have some shortness of breath. Family is at bedside and patient endorses to feeling significantly better than yesterday. Labs are reviewed patient's leukocyte count is uptrending to 25.7 we will continue IV antibiotics and order repeat chest x-rays and will order CT scan to further evaluate the pulmonary mass that was found on previous imaging. The remainder of the labs are stable with the exception of sodium at 130 we will order salt tablet and Bumex was decreased to once daily yesterday. will order PT for further evaluation of pt's mobility and strength. Exam Vital Signs Temp Pulse Resp BP Pulse Ox O2 Del Method O2 Flow Rate 97.1 F 95 18 141/95 H 96 Nasal Cannula 2 03/12/25 08:00 03/12/25 08:19 03/12/25 08:00 03/12/25 08:19 03/12/25 08:00 03/12/25 08:00 03/12/25 08:00 Narrative Exam GENERAL: A&Ox3 . Awake, Not in acute distress NEURO: no focal neurological deficits HEENT: Atraumatic, Normocephalic. mucous membranes moist. Eyes open, symmetrical, & clear HEART: systolic murmur heard LUNGS: Clear to auscultation with no wheezing or crackles. ABDOMEN: soft, non-distended, non-tender, bowel sounds heard, no guarding or rebound tenderness SKIN: No Rash or ecchymoses EXTREMITIES: 1+ non pitting edema bilaterally in LE, no tenderness, able to move all 4 extremities, pedal pulses palpated Objective Labs 03/13/25 05:42 03/13/25 05:42 Labs: Laboratory Results - last 24 hr 03/12/25 03/12/25 05:30 09:22 WBC 25.7 H D RBC 3.01 L Hgb 11.0 L Hct 32.5 L MCV 108 H MCH 36.5 H MCHC 33.8 RDW Std Deviation 67.4 H Plt Count 493 H D Neut % (Auto) 93 H Lymph % (Auto) 3 L [place] % (Auto) 2 Eos % (Auto) 0 Baso % (Auto) 0 Neut # (Auto) 24.0 H Lymph # (Auto) 0.7 L [place] # (Auto) 0.4 Eos # (Auto) 0.1 Baso # (Auto) 0.1 Immature Gran # (Auto) 0.42 H Absolute Nucleated RBC 0.00 Immature Gran % 2 H Nucleated RBC % 0 Sodium 130 L Potassium 4.0 Chloride 91 L Carbon Dioxide 28.5 Anion Gap 11 BUN 14 Creatinine 0.8 Estim Creat Clear Calc 45.2 L eGFR > 60 BUN/Creatinine Ratio 18 Glucose 108 H Calculated Osmolality 262 L Calcium 8.3 Corrected Calcium 8.9 Magnesium 2.1 Total Bilirubin 1.0 AST 18 ALT < 7 L Alkaline Phosphatase 47 Total Protein 5.4 L Albumin 3.2 L Globulin 2.2 L Albumin/Globulin Ratio 1.5 Procalcitonin 0.10 ABG Interpretation ABG results: 03/07/25 14:41 VBG pH 7.49 VBG pCO2 37 VBG pO2 43 VBG Base Excess 5 H Quality Measures Quality Measures none Advance care planning discussed with:: patient Assessment & Plan Assessment Current Active Medications: Generic Name Dose Route Start Last Admin Trade Name Freq PRN Reason Stop Dose Admin Acetaminophen 650 mg 03/08/25 09:19 Acetaminophen 325 Mg Tablet PO 04/06/25 19:54 Q6H PRN pain(1-3) and Fever >100.4 Hydrocodone Bitart/Acetaminophen 1 tab 03/07/25 19:55 03/08/25 10:48 Hydrocodone/Apap 5/325 Tablet PO 03/12/25 19:54 1 tab Q4HR PRN Administration PAIN SCALE 4-10(Mod-Sev Albuterol/Ipratropium 3 ml 03/07/25 19:55 03/12/25 07:12 Albuterol/Ipratropium (Duoneb) Rt Luciana 3 Ml Nebu INH 04/06/25 22:59 3 ml Q4HRRT PRN Administration SOB or Wheezing Allopurinol 300 mg 03/11/25 09:00 03/12/25 08:18 Allopurinol 100 Mg Tablet PO 04/10/25 08:59 300 mg QDAY HEIKE Administration Apixaban 2.5 mg 03/07/25 21:00 03/12/25 08:18 Apixaban 2.5 Mg Tablet PO 04/06/25 20:59 2.5 mg BID HEIKE Administration Benzonatate 100 mg 03/09/25 21:57 03/11/25 20:22 Benzonatate 100 Mg Capsule PO 04/08/25 21:56 100 mg Q8HR PRN Administration COUGH Protocol Bumetanide 1 mg 03/11/25 12:15 03/12/25 08:19 Bumetanide Inj 0.25 Mg/Ml Vial 4 Ml IVP 04/10/25 12:14 1 mg QDAY HEIKE Administration Carvedilol 12.5 mg 03/08/25 08:00 03/12/25 08:19 Carvedilol 12.5 Mg Tablet PO 04/07/25 07:59 12.5 mg BIDWM HEIKE Administration Guaifenesin 600 mg 03/10/25 09:00 03/12/25 08:18 Guaifenesin Er 600 Mg Tabcr PO 04/09/25 08:59 600 mg BID HEIKE Administration Ceftriaxone Sodium/Dextrose 1 gm in 50 mls @ 100 mls/hr 03/10/25 12:37 03/12/25 08:18 Rocephin/D5w 1gm Iv Premix IV 03/17/25 12:36 100 mls/hr QDAY HEIKE Administration Azithromycin 500 mg/ Sodium 250 mls @ 250 mls/hr 03/10/25 12:37 03/12/25 08:47 Chloride IV 03/17/25 12:36 250 mls/hr QDAY HEIKE Administration Melatonin 3 mg 03/09/25 17:21 03/11/25 20:22 Melatonin 3 Mg Tablet PO 04/08/25 20:59 3 mg HS PRN Administration insomnia Montelukast Sodium 10 mg 03/11/25 09:00 03/12/25 08:18 Montelukast Sodium 10 Mg Tablet PO 04/10/25 08:59 10 mg QDAY HEIKE Administration Nitroglycerin 0.4 mg 03/10/25 16:53 Nitroglycerin 0.4 Mg Subl Btl #25 SL 03/15/25 16:52 Q5M PRN Chest Pain Ondansetron HCl 4 mg 03/07/25 19:55 Ondansetron Inj 2 Mg/Ml Inj 2 Ml IVP 04/06/25 19:54 Q6H PRN NAUSEA OR VOMITING Protocol Pantoprazole Sodium 40 mg 03/08/25 09:00 03/12/25 08:18 Pantoprazole 40 Mg Tablet PO 04/07/25 08:59 40 mg QDAY HEIKE Administration Plan Ms. Mccormack is a 84-year-old female with a past medical history of severe aortic stenosis, CAD status post stents, HFpEF (65% EF on 01/2025), A-fib on Eliquis, CVA 2018, polycythemia vera, pulmonary fibrosis on 2 L home O2 (baseline SpO2 95%), hypertension, gout, chronic UTIs was admitted to the hospital on 03/07/2025 for syncopal episode likely in the setting of severe aortic stenosis and for acute decompensated heart failure exacerbation. #Acute hypoxic respiratory failure #Community-acquired pneumonia #Pleural effusions, bilateral - Although patient's oxygen requirement increased from her home oxygen of 2 L to 4 L on admission. Patient's symptoms were initially likely attributed to acute CHF exacerbation. However chest x-ray is suspicious for superimposed pneumonia and patient did complain of cough with increased phlegm. Plan: - DuoNebs as needed - Supplemental oxygen - Patient is afebrile therefore no blood cultures were needed as previous blood cultures from March 07 had no growth at 48 hours - Started ceftriaxone and azithromycin on 03/10- -Repeat chest xray showed bilateraly pleural effusions, will order CT without contrast (as pt is allergic to contrast) to evaluation if effusions are large enough to require thoracenthesis. #Syncopal episode #Acute decompensated heart failure exacerbation #Hx of severe aortic stenosis #Hx of HFpEF (65% EF on 01/2025) #Hx of CAD s/p stents #Hx of A-fib (on Eliquis) Patient came in after having a syncopal episode today in the rehab center where she went to the bathroom. Patient does have a history of severe aortic stenosis seen on echo on previous admission on January and she was supposed to follow-up with cardiology for possible TAVR. Patient has not follow-up with cardiology for TAVR as per patient's son. Patient head CT was negative and EKG showed A-fib. Patient's chest x-ray again showed CHF pattern and some possible superimposed pneumonia, but seems more like pulmonary edema than actual pneumonia. Patient has 1+ peripheral edema -Continue Bumex 1 mg IV once daily -Continue carvedilol 12.5 mg twice daily -Continue Eliquis 2.5 mg twice daily -Strict ALEX's -Daily weights -Cardiac diet, dysphagia 3 chopped -Fluid restrictions at 1800 -Keep potassium magnesium above 4 and 2 respectively -Cardiology following, appreciate recommendations -Will continue to monitor #Pulmonary mass, left lung -chest xrays reveals 19mm pulmonary mass which appears to be decreasing in size. -CT ordered to evaluate the mass in the left lung #Hx of polycythemia vera #Hx of pulmonary fibrosis on 2 L home O2 #Hx of gout #Hx of chronic UTIs #Hx of CVA 2018 #Hx of hypertension #Hx of macrocytic anemia No active signs of bleeding and hemoglobin stable Blood pressure was mildly elevated on admission -Holding home benazepril due to normotension Disposition: Patient admitted to telemetry for syncopal episode. Diet: Cardiac, 1800 ml and high protein ensure GI prophylaxis: protonix DVT prophylaxis: Eliquis Code:DNR/DNI Assessment and plan discussed with my attending physician Dr. Danielle Ladd (PGY-1)- Internal medicine resident Attending Provider Attestation/Addendum Face to face evaluation was performed by me. I have personally seen and examined the patient. I discussed the assessment and plan with the entire medicine team. I reviewed available medical records, imaging studies, laboratory results. I agree with the above subjective data, objective findings, assessment and plan except as corrected by me or noted below Syncope, could be cardiac from severe aortic stenosis Severe arctic stenosis Acute hypoxic respiratory failure Acute on chronic diastolic heart failure decompensated coronary artery disease Cough Hyponatremia suspect multifactorial could be hypovolemic from diuresis as well as SIADH from pulmonary edema and pneumonia. - IV diuresis Bumex , dosage decreased to 1 mg daily cardiology on board. Greatly appreciate help - Continue antibiotics as ordered - Cardiology recommending left heart catheterization if patient is agreeable?timing to be decided - Check urine electrolytes , Consider nephrology consultation if hyponatremia worsens - obtain lung imaging More than > 30 minutes spent on the encounter check urine electrolytes
[2025-03-12] MEDS: BENZONATATE 100 MG CAPSULE PO (13:58)
--- NOTE | 2025-03-12 15:16 | XR_ITS ---
Examination: CT chest, without intravenous contrast. Sagittal and coronal 2-D reconstructions. Exam date and time: March 12, 2025 1630 hours Comparison December 28, 2022 INDICATIONS: Shortness of breath chest pain this week, bilateral pleural effusions, 19 mm pulmonary mass left mid lung on chest x-ray March 12, 2025 CTDI:vol (mGy) 7.72 DLP: (mGycm) 289 Technique: Multiple 3.0 mm axial sections of the chest to been obtained. Bone and lung density settings are obtained. Sagittal and coronal 2-D reconstructions have been obtained. Low dose protocols were performed. One or more of the following dose reduction techniques were used; automated exposure control, adjustment of the mA and/or KV according to patient size, use of iterative reconstruction technique. Findings: Thoracic aortic calcification, no thoracic aortic aneurysm dilatation Heavy calcification left main and left anterior descending and left circumflex right coronary arteries Mild to moderate enlargement cardiac contour with vascular congestion, large right mild left pleural effusions Atelectasis right lower lobe Pulmonary mass spiculated margins left upper lobe image 165 6 mm pulmonary nodule right upper lobe image 165 3 mm pulmonary nodule left upper lobe image 80 Partially visualized hepatosplenomegaly Absent gallbladder No pancreatic mass Atrophic appearing right kidney Prominent osteopenia IMPRESSION: Heart failure pattern with large right pleural effusion Pulmonary masses as above, the largest 20 mm in the left upper lobe with spiculated margins, highest on the differential list lung cancer
--- NOTE | 2025-03-12 16:29 | PC.SS ---
Follow up note: SS followed up with Debo at [facility] who states she has contacted patient's health insurance and they are requesting a peer to peer. SS has provided Dr. Ladd with the information for peer to peer phone# [phone] option 5. Ref# [id number]. Per Dr. Ladd when pt is closer to d/c they (patient's health insurance) will review information.
[2025-03-12] MEDS: MELATONIN 3 MG TABLET PO (20:47)
[2025-03-12] MEDS: ACETAMINOPHEN 325 MG TABLET 650 MG PO (20:48)
[2025-03-13] VITALS (10 sets, daily range): BP systolic 120–167; BP diastolic 66–82; PULSE 63–93; RESP 17–21; TEMP 36.1–36.5; O2SAT 97–99
[2025-03-13 06:02] LABS: Basophils # (Auto) 0.1 Thou/mm3 (0.0-0.2); Basophils % (Auto) 0 % (0-2.5); Eosinophils # (Auto) 0.1 Thou/mm3 (0.0-0.5); Eosinophils % (Auto) 1 % (0-10); Hemoglobin 10.6 g/dL (12.0-16.0); Immature Granulocytes % (Auto) 2 % (0-0); Lymphocytes # (Auto) 0.8 Thou/mm3 (1.0-4.8); Lymphocytes % (Auto) 3 % (10-50); Mean Corpuscular HGB Conc 34.2 g/dl (31.0-37.0); Mean Corpuscular Hemoglobin 37.3 pg (25.0-35.0); Mean Corpuscular Volume 109 fL (80-100); Monocytes # (Auto) 0.5 Thou/mm3 (0.0-0.8); Monocytes % (Auto) 2 % (0-12); Neutrophils # (Auto) 22.1 Thou/mm3 (1.8-7.7); Neutrophils % (Auto) 92 % (37-80); Nucleated Red Blood Cell % 0 /100 WBC (0); Platelet Count 482 Thou/mm3 (140-440); RDW Standard Deviation 66.1 fL (36.4-46.3); Red Blood Count 2.84 Miln/mm3 (4.00-5.20)
[2025-03-13 06:36] LABS: Alanine Aminotransferase < 7 U/L (10-49); Albumin/Globulin Ratio 1.4 (1.2-2.2); Alkaline Phosphatase 43 U/L (46-116); Anion Gap 7 (7-16); Aspartate Amino Transferase 13 U/L (0-34); BUN/Creatinine Ratio 24 Ratio (12-20); Bilirubin,Total 0.8 mg/dL (0.3-1.2); Blood Urea Nitrogen 19 mg/dL (9-23); Calcium 8.1 mg/dL (8.3-10.6); Calcium (Corrected) 8.9 mg/dL (8.5-10.1); Carbon Dioxide 30.6 mMol/L (20.0-31.0); Chloride 91 mMol/L (98-107); Creatinine (Component) 0.8 mg/dL (0.6-1.3); Estimated Creatinine Clearance 45.2 mL/min (>60); Globulin 2.1 gm/dL (2.3-3.5); Glucose 107 mg/dL (74-106); Osmolality,Calculated 261 (275-295); Sodium 129 mMol/L (136-145); Total Protein 5.1 gm/dL (5.7-8.2); eGFR > 60 See Note
[2025-03-13] MEDS: allopurinoL 100 MG TABLET 300 MG PO (08:18)
[2025-03-13] MEDS: guaiFENesin ER 600 MG TABCR PO ×2 (08:19→21:24)
[2025-03-13] MEDS: PANTOPRAZOLE 40 MG TABLET PO (08:20)
[2025-03-13] MEDS: APIXABAN 2.5 MG TABLET PO (08:20)
[2025-03-13] MEDS: MONTELUKAST SODIUM 10 MG TABLET PO (08:20)
[2025-03-13] MEDS: BUMETANIDE INJ 0.25 MG/ML VIAL 4 ML 1 MG IVP (08:20)
[2025-03-13] MEDS: carVEDILOL 12.5 MG TABLET PO ×2 (08:20→16:51)
[2025-03-13] MEDS: cefTRIAXone/D5w 1gm IV premix 1 GM/50 ML BAG IV (08:21)
[2025-03-13] MEDS: AZITHROMYCIN INJ 500 MG in SODIUM CHLORIDE 0.9% 250 ML 250 ML 250 MG IV (09:23)
[2025-03-13 10:06] LABS: Chloride,Urine Random 36.1 mMol/L (55.0-125.0); Potassium,Urine Random 31 mMol/L (12-62); Sodium,Urine Random 31.7 mMol/L (20.0-110.0)
--- NOTE | 2025-03-13 10:43 | CHAP ---
Patient was [facility] a spiritual care volunteer [facility] 1030 and received comfort, encouragement and/or prayer.
--- NOTE | 2025-03-13 11:30 | PC.SS ---
Addendum entered by ANGEL Velez 03/14/25 14:50: Patient will require insurance authorization to return back to [facility], however Debo at [facility] informs to be submit for insurance authorization closer to discharge. Patient's insurance is [employer] phone: [phone]. Addendum entered by ANGEL Velez 03/13/25 15:10: Rounding note: possible biopsy and pending thorasenthesis later this week on 03/15. Original Note: SS follow up: sent updated clinicals to [facility] via [employer].
--- NOTE | 2025-03-13 11:42 | ESCONSULT_ITS ---
HPI Data of Consult Consult date: 03/13/25 Requesting Physician: oYung Santos MD Admitting Provider: Derick Gamez MD Attending Provider: Young Santos MD Primary Care Provider: Burak Hebert MD Consult Narrative Reason for consult: DAYAN History of present illness: Shereen is a 84-year-old female with a past medical history of severe aortic stenosis, CAD status post stents, HFpEF (60-65% on 04/2023), A-fib on Eliquis, CVA 2018, polycythemia vera, pulmonary fibrosis on 2 L home O2 (baseline SpO2 95%), pulmonary mass, hypertension, gout, chronic UTIs who was admitted to [facility] on 03/07/2025 after a syncopal episode. It was noted that patient was recently discharged from hospital in January 2025 and was supposed to get cardiac catheterization and TAVR for aortic stenosis leading to her recurrent respiratory failure. She was recently admitted into rehab after her hospitalization and came again after her syncopal episode. She was taking her medicines as prescribed. Her package pick up is Dr. Fountain. She does not want aggressive treatment at this time, and is agreeable to getting a thoracentesis, however does not want cardiac catheterization at this time. She endorses about 130 pound weight loss over the past 3 years (unsure if this is true). She says she was 3 years ago from her . She denies being on any SSRIs. She denies having history of low sodium. No other complaints this time. ED Course: Initially patient came in hypertensive and afebrile. Initial labs were remarkable for leukocytosis, low hemoglobin, hyponatremia, hypomagnesemia, and elevated BNP. Patient's imaging included chest x-ray which showed CHF pattern and some possible superimposed pneumonia of both lungs, but is more consistent with pulmonary edema. Additional imaging can have an x-ray which was significant only for arthritic changes, head CT which was unremarkable, and EKG which showed A-fib. PMHx: As above Surgeries: Cholecystectomy, CAD s/p 4x Stents Meds:Pending Med rec Allergies: Shellfish derived products Family Hx: Limited Family Hx Social Hx: Born in [place], came to [place] in 60s, was for 60+ years, 3 years ago, has never been a heavy drinker, no smoking history, no history of oral or IV drug use. 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 cc:: cc: Young Santos MD Review of Systems Review of Systems Narrative Review of Systems: 12 point reviewed and is otherwise negative unless stated directly in HPI Exam Vital Signs Temp Pulse Resp BP Pulse Ox O2 Del Method O2 Flow Rate 97 F 70 18 167/80 H 97 Nasal Cannula 3 03/13/25 04:00 03/13/25 08:20 03/13/25 04:00 03/13/25 08:20 03/13/25 04:00 03/13/25 04:00 03/13/25 04:00 Narrative Exam General: AAOx3, NAD, elderly pleasant woman wearing glasses, poor musculature, appears to be weak HEENT: Moist mucous membranes, conjunctiva clear, EOMI, PERRLA, Cardiovascular: S1, S2, EJM, irregularly irregular, radial pulses +2 bilat Pulmonary: Poor airway entry and right lower lobe, some breath sounds heard in right lobe, no cough GI: No tenderness to light or deep palpitation, no guarding, rigidity, rebound tenderness or distension Extremities: +1 pitting edema in lower extremities bilaterally, dorsalis pedis pulses +2 bilaterally Skin: Poor skin turgor (likely related to age) Neuro: AAOx3, no focal motor or sensory deficits in the UE or LE bilat Psych: Good judgement, thought and behavior. Cooperative Results Labs 03/13/25 05:42 03/13/25 05:42 Labs: Short CBC 03/13/25 Range/Units 05:42 WBC 24.0 H (3.6-11.0) Thou/mm3 Hgb 10.6 L (12.0-16.0) g/dL Hct 31.0 L (36.0-46.0) % Plt Count 482 H (140-440) Thou/mm3 BMP 03/13/25 05:42 Sodium 129 L Potassium 4.0 Chloride 91 L Carbon Dioxide 30.6 BUN 19 Creatinine 0.8 Glucose 107 H Calcium 8.1 L Liver Function 03/13/25 Range/Units 05:42 Total Bilirubin 0.8 (0.3-1.2) mg/dL AST 13 (0-34) U/L ALT < 7 L (10-49) U/L Alkaline Phosphatase 43 L (46-116) U/L Albumin 3.0 L (3.4-4.8) gm/dL ABG Interpretation ABG results: 03/07/25 14:41 VBG pH 7.49 VBG pCO2 37 VBG pO2 43 VBG Base Excess 5 H Quality Measures Quality Measures none Advance care planning discussed with:: patient Medications Home Medications and Allergies Home Medications ?Medication ?Instructions ?Recorded ?Confirmed ?Type allopurinol 300 mg tablet 300 mg PO QDAY 10/11/1802/25 History alpha lipoic acid 600 mg capsule 600 mg PO QDAY 03/08/25 History benazepril 10 mg tablet 10 mg PO BID PRN hypertensio n 01/14/23 03/08/25 History carvedilol 12.5 mg tablet 12.5 mg PO BID 01/14/2302/25 History cetirizine 10 mg tablet 10 mg PO QDAY 01/14/2303/08 History cholecalciferol (vitamin D3) 125 5,000 unit PO QDAY 03/08/25 History mcg (5,000 unit) tablet (Vitamin D3) folic acid 1 mg tablet 1 mg PO TID 01/14/23 5 History mirabegron 50 mg tablet,extended 50 mg PO QDAY 3 03/08/25 History release 24 hr (Myrbetriq) montelukast 10 mg tablet 10 mg PO QDAY 01/14/2303/08 History omeprazole 40 mg capsule,delayed 40 mg PO QDAY 3 03/08/25 History release apixaban 2.5 mg tablet (Eliquis) 2.5 mg PO BID 3 03/08/25 History nitroglycerin 0.4 mg sublingual 0.4 mg buccal Q5M PRN Chest Pain 01/15/23 03/08/25 History tablet albuterol sulfate 90 mcg/actuation 1 inh inhalation BI D 07/09/23 03/08/25 History aerosol inhaler bumetanide 1 mg tablet 1 mg PO QDAY 07/09/23 History guaifenesin 600 mg tablet,extended 600 mg PO BID 07/0903/08/25 History release hydroxyurea 500 mg capsule 1,000 mg PO HS 07/09/2309/20 History budesonide 160 mcg-glycopyr 9 2 inh inhalation BID 03/08/25 History mcg-formot 4.8 mcg/actuation HFA inhaler (Breztri Aerosphere) Allergies Allergy/AdvReac Type Severity Reaction Status Date / Time iodine Allergy Severe Swelling Verified 03/12/25 19:50 of Lip/Tongue/Throat shellfish derived Allergy Severe Swelling Verified 03/12/25 19:50 of Lip/Tongue/Throat Visit Medications Acetaminophen (Acetaminophen 325 Mg Tablet) 650 mg PO Q6H PRN PRN Reason: pain(1-3) and Fever >100.4 Stop: 04/06/25 19:54 Last Admin: 03/12/25 20:48 Dose: 650 mg Albuterol/Ipratropium (Albuterol/Ipratropium (Duoneb) Rt Luciana 3 Ml Nebu) 3 ml INH Q4HRRT PRN PRN Reason: SOB or Wheezing Stop: 04/06/25 22:59 Last Admin: 03/12/25 21:02 Dose: 3 ml Allopurinol (Allopurinol 100 Mg Tablet) 300 mg PO QDAY [facility] Stop: 04/10/25 08:59 Last Admin: 03/13/25 08:18 Dose: 300 mg Benzonatate (Benzonatate 100 Mg Capsule) 100 mg PO Q8HR PRN; Protocol PRN Reason: COUGH Stop: 04/08/25 21:56 Last Admin: 03/12/25 13:58 Dose: 100 mg Bumetanide (Bumetanide Inj 0.25 Mg/Ml Vial 4 Ml) 1 mg IVP QDAY [facility] Stop: 04/10/25 12:14 Last Admin: 03/13/25 08:20 Dose: 1 mg Carvedilol (Carvedilol 12.5 Mg Tablet) 12.5 mg PO BIDWM [facility] Stop: 04/07/25 07:59 Last Admin: 03/13/25 08:20 Dose: 12.5 mg Guaifenesin (Guaifenesin Er 600 Mg Tabcr) 600 mg PO BID [facility] Stop: 04/09/25 08:59 Last Admin: 03/13/25 08:19 Dose: 600 mg Heparin Sodium (Porcine) (Heparin Sod Inj 5000 Unit/Ml Vial) 5,000 unit SC Q8HR [facility] Stop: 03/27/25 13:59 Ceftriaxone Sodium/Dextrose (Rocephin/D5w 1gm Iv Premix) 1 gm in 50 mls @ 100 mls/hr IV QDAY [facility] Stop: 03/17/25 12:36 Last Admin: 03/13/25 08:21 Dose: 100 mls/hr Azithromycin 500 mg/ Sodium (Chloride) 250 mls @ 250 mls/hr IV QDAY [facility] Stop: 03/17/25 12:36 Last Admin: 03/13/25 09:23 Dose: 250 mls/hr Melatonin (Melatonin 3 Mg Tablet) 3 mg PO HS PRN PRN Reason: insomnia Stop: 04/08/25 20:59 Last Admin: 03/12/25 20:47 Dose: 3 mg Montelukast Sodium (Montelukast Sodium 10 Mg Tablet) 10 mg PO QDAY [facility] Stop: 04/10/25 08:59 Last Admin: 03/13/25 08:20 Dose: 10 mg Nitroglycerin (Nitroglycerin 0.4 Mg Subl Btl #25) 0.4 mg SL Q5M PRN PRN Reason: Chest Pain Stop: 03/15/25 16:52 Ondansetron HCl (Ondansetron Inj 2 Mg/Ml Inj 2 Ml) 4 mg IVP Q6H PRN; Protocol PRN Reason: NAUSEA OR VOMITING Stop: 04/06/25 19:54 Pantoprazole Sodium (Pantoprazole 40 Mg Tablet) 40 mg PO QDAY [facility] Stop: 04/07/25 08:59 Last Admin: 03/13/25 08:20 Dose: 40 mg Discontinued Medications Acetaminophen (Acetaminophen 325 Mg Tablet) 650 mg PO Q6H PRN PRN Reason: pain and Fever >100.4 Stop: 04/06/25 19:54 Hydrocodone Bitart/Acetaminophen (Hydrocodone/Apap 5/325 Tablet) 1 tab PO Q4HR PRN PRN Reason: PAIN SCALE 4-10(Mod-Sev Stop: 03/12/25 19:54 Last Admin: 03/08/25 10:48 Dose: 1 tab Apixaban (Apixaban 2.5 Mg Tablet) 2.5 mg PO BID [facility] Stop: 04/06/25 20:59 Last Admin: 03/13/25 08:20 Dose: 2.5 mg Benzonatate (Benzonatate 100 Mg Capsule) 100 mg PO X1 ONE; Protocol Stop: 03/10/25 06:02 Bumetanide (Bumetanide Inj 0.25 Mg/Ml Vial 4 Ml) 1 mg IVP BID [facility] Stop: 04/06/25 20:59 Last Admin: 03/11/25 08:03 Dose: 1 mg Furosemide (Furosemide Inj 10 Mg/Ml 4ml Vial) 40 mg IVP X1 ONE Stop: 03/07/25 17:35 Last Admin: 03/07/25 19:25 Dose: 40 mg Magnesium Sulfate (Magnesium Sulfate Ivpb) 4 gm in 50 mls @ 12.5 mls/hr IV X1 ONE Stop: 03/07/25 23:59 Last Admin: 03/07/25 20:47 Dose: 12.5 mls/hr Magnesium Sulfate (Magnesium Sulfate Ivpb) 4 gm in 50 mls @ 12.5 mls/hr IV X1 ONE Stop: 03/08/25 12:43 Last Admin: 03/08/25 09:26 Dose: 12.5 mls/hr Magnesium Sulfate (Magnesium Sulfate Ivpb) 4 gm in 50 mls @ 12.5 mls/hr IV X1 ONE Stop: 03/10/25 14:26 Magnesium Sulfate (Magnesium Sulfate Ivpb) 4 gm in 50 mls @ 12.5 mls/hr IV X1 ONE Stop: 03/10/25 14:26 Last Admin: 03/10/25 11:20 Dose: 12.5 mls/hr Potassium Chloride (Kcl Ivpb) 10 meq in 100 mls @ 100 mls/hr IV Q1H HEIKE Stop: 03/10/25 14:27 Last Admin: 03/10/25 22:22 Dose: Not Given Magnesium Sulfate (Magnesium Sulfate Ivpb) 4 gm in 50 mls @ 12.5 mls/hr IV X1 ONE Stop: 03/11/25 14:43 Last Admin: 03/11/25 11:57 Dose: 12.5 mls/hr Melatonin (Melatonin 3 Mg Tablet) 3 mg PO HS ONE Stop: 03/09/25 21:46 Last Admin: 03/09/25 21:52 Dose: 3 mg Potassium Chloride (Potassium Chloride 20 Meq Tabcr) 40 meq PO X1 ONE Stop: 03/08/25 08:44 Last Admin: 03/08/25 09:26 Dose: 40 meq Potassium Chloride (Potassium Chloride 20 Meq Tabcr) 40 meq PO X1 ONE Stop: 03/10/25 10:27 Last Admin: 03/10/25 11:20 Dose: 40 meq Simethicone (Simethicone 80 Mg Chew) 80 mg PO X1 ONE Stop: 03/08/25 00:24 Last Admin: 03/08/25 00:35 Dose: 80 mg Sodium Chloride (Sodium Chloride Rt 10% 15 Ml Nebu) 5 ml INH X1 ONE Stop: 03/10/25 14:29 Sodium Chloride (Sodium Chloride 1 Gm Tablet) 1 gm PO X1 ONE Stop: 03/12/25 08:07 Last Admin: 03/12/25 08:19 Dose: 1 gm Assessment & Plan Plan Assessment Shereen is a 84-year-old female with a past medical history of severe aortic stenosis, CAD status post stents, HFpEF (60-65% on 04/2023), A-fib on Eliquis, CVA 2018, polycythemia vera, pulmonary fibrosis on 2 L home O2 (baseline SpO2 95%), pulmonary mass, hypertension, gout, chronic UTIs #Hypoosmolar hypervolemic hyponatremia Serum osmolarity: 261 Urine sodium normal, urine chloride low, urine potassium normal This is usually unexpected with diuresis with Bumex There could be diuresis resistance or not enough diuretic or the timing of the urine was taken after Bumex was given Unlikely SIADH as patient's urine sodium is also low Hyponatremia likely related to heart failure and diuresis This could be a combination of water retention with RAAS and heart failure and also diuresis Plan: ? Continue CMP ? Consider rechecking urine lytes ? Free water restriction ? Continue with diuresis ? Daily weights #Acute hypoxic respiratory failure #Community-acquired pneumonia #Pleural effusions, bilateral #Syncopal episode #Acute decompensated heart failure exacerbation #Hx of severe aortic stenosis #Hx of HFpEF (65% EF on 01/2025) #Hx of CAD s/p stents #Hx of A-fib (on Eliquis) #Pulmonary mass, left lung #Hx of polycythemia vera #Hx of pulmonary fibrosis on 2 L home O2 #Hx of gout #Hx of chronic UTIs #Hx of CVA 2018 #Hx of hypertension #Hx of macrocytic anemia Above handeled by primary hospitalist team Patient seen and care discussed with my attending physician, Dr. Last Herbert, PGY-1 Attending Provider Attestation/Addendum Patient seen and examined with resident physician Dr. Garcia, Note reviewed, agree with findings and recommendations. Patient with hypervolemic hyponatremia in the setting of CHF. Urine sodium low due to RAAS activation. Agree with diuretics. Thank you Derick for allowing me to participate in the care of Ms. Mccormack
--- NOTE | 2025-03-13 12:12 | PD.RESPRO ---
Documentation for date of: 03/13/25 Subjective Subjective Interval history: No overnight events reported. Patient seen and examined at bedside this morning. Patient is currently saturating above 92% on 3L of oxygen. Patient denies any shortness of breath or cough. Patient states she feels a little better and is well rested. She has no complaints. Informed the patient regarding chest x-ray findings and CT findings of pulmonary nodules and possibly needing a another thoracentesis, if agreeable then lung mass biopsy. Patient requested to update son Sammy who I informed via phone. Son was aware of the lung mass found on chest xrays previously, updated him of CT findings which are consistent with large right pleural effusions and additional masses seen on CT. IR is not available tomorrow therefore will schedule thoracentesis for and will order cell cytology for the pleural effusion. Per patient's son stated they will think about the lung biopsy and will let the team know by . Although patient's Bumex was decreased to once daily 2 days ago due to mild hyponatremia sodium was 130 at that time patient continue to show no improvement in the sodium and today's lab sodium was 129 despite salt tablets as well as Bumex decreased to once daily. Will consult nephrology for further recommendations as patient may need hypertonic saline however patient does have history of heart failure as well as severe aortic stenosis and we have already decreased the Bumex to once daily. Urine electrolytes are ordered. Patient has no complaints she is alert and oriented and is not altered. labs are reviewed. Exam Vital Signs Temp Pulse Resp BP Pulse Ox O2 Del Method O2 Flow Rate 97 F 70 18 167/80 H 97 Nasal Cannula 3 03/13/25 04:00 03/13/25 08:20 03/13/25 04:00 03/13/25 08:20 03/13/25 04:00 03/13/25 04:00 03/13/25 04:00 Narrative Exam GENERAL: A&Ox3 . Awake, Not in acute distress NEURO: no focal neurological deficits HEENT: Atraumatic, Normocephalic. mucous membranes moist. Eyes open, symmetrical, & clear HEART: systolic murmur heard LUNGS: Clear to auscultation with no wheezing or crackles. ABDOMEN: soft, non-distended, non-tender, bowel sounds heard, no guarding or rebound tenderness SKIN: No Rash or ecchymoses EXTREMITIES: 1+ non pitting edema bilaterally in LE, no tenderness, able to move all 4 extremities, pedal pulses palpated Objective Labs 03/13/25 05:42 03/13/25 05:42 Labs: Laboratory Results - last 24 hr 03/13/25 03/13/25 05:42 09:35 WBC 24.0 H RBC 2.84 L Hgb 10.6 L Hct 31.0 L MCV 109 H MCH 37.3 H MCHC 34.2 RDW Std Deviation 66.1 H Plt Count 482 H Neut % (Auto) 92 H Lymph % (Auto) 3 L [place] % (Auto) 2 Eos % (Auto) 1 Baso % (Auto) 0 Neut # (Auto) 22.1 H Lymph # (Auto) 0.8 L [place] # (Auto) 0.5 Eos # (Auto) 0.1 Baso # (Auto) 0.1 Immature Gran # (Auto) 0.40 H Absolute Nucleated RBC 0.00 Immature Gran % 2 H Nucleated RBC % 0 Sodium 129 L Potassium 4.0 Chloride 91 L Carbon Dioxide 30.6 Anion Gap 7 BUN 19 Creatinine 0.8 Estim Creat Clear Calc 45.2 L eGFR > 60 BUN/Creatinine Ratio 24 H Glucose 107 H Calculated Osmolality 261 L Calcium 8.1 L Corrected Calcium 8.9 Total Bilirubin 0.8 AST 13 ALT < 7 L Alkaline Phosphatase 43 L Total Protein 5.1 L Albumin 3.0 L Globulin 2.1 L Albumin/Globulin Ratio 1.4 Ur Random Sodium 31.7 Ur Random Potassium 31 Ur Random Chloride 36.1 L ABG Interpretation ABG results: 03/07/25 14:41 VBG pH 7.49 VBG pCO2 37 VBG pO2 43 VBG Base Excess 5 H Quality Measures Quality Measures none Advance care planning discussed with:: patient and child Assessment & Plan Assessment Current Active Medications: Generic Name Dose Route Start Last Admin Trade Name Freq PRN Reason Stop Dose Admin Acetaminophen 650 mg 03/08/25 09:19 03/12/25 20:48 Acetaminophen 325 Mg Tablet PO 04/06/25 19:54 650 mg Q6H PRN Administration pain(1-3) and Fever >100.4 Albuterol/Ipratropium 3 ml 03/07/25 19:55 03/12/25 21:02 Albuterol/Ipratropium (Duoneb) Rt Luciana 3 Ml Nebu INH 04/06/25 22:59 3 ml Q4HRRT PRN Administration SOB or Wheezing Allopurinol 300 mg 03/11/25 09:00 03/13/25 08:18 Allopurinol 100 Mg Tablet PO 04/10/25 08:59 300 mg QDAY HEIKE Administration Benzonatate 100 mg 03/09/25 21:57 03/12/25 13:58 Benzonatate 100 Mg Capsule PO 04/08/25 21:56 100 mg Q8HR PRN Administration COUGH Protocol Bumetanide 1 mg 03/11/25 12:15 03/13/25 08:20 Bumetanide Inj 0.25 Mg/Ml Vial 4 Ml IVP 04/10/25 12:14 1 mg QDAY HEIKE Administration Carvedilol 12.5 mg 03/08/25 08:00 03/13/25 08:20 Carvedilol 12.5 Mg Tablet PO 04/07/25 07:59 12.5 mg BIDWM HEIKE Administration Guaifenesin 600 mg 03/10/25 09:00 03/13/25 08:19 Guaifenesin Er 600 Mg Tabcr PO 04/09/25 08:59 600 mg BID HEIKE Administration Heparin Sodium (Porcine) 5,000 unit 03/13/25 14:00 Heparin Sod Inj 5000 Unit/Ml Vial SC 03/27/25 13:59 Q8HR HEIKE Ceftriaxone Sodium/Dextrose 1 gm in 50 mls @ 100 mls/hr 03/10/25 12:37 03/13/25 08:21 Rocephin/D5w 1gm Iv Premix IV 03/17/25 12:36 100 mls/hr QDAY HEIKE Administration Azithromycin 500 mg/ Sodium 250 mls @ 250 mls/hr 03/10/25 12:37 03/13/25 09:23 Chloride IV 03/17/25 12:36 250 mls/hr QDAY HEIKE Administration Melatonin 3 mg 03/09/25 17:21 03/12/25 20:47 Melatonin 3 Mg Tablet PO 04/08/25 20:59 3 mg HS PRN Administration insomnia Montelukast Sodium 10 mg 03/11/25 09:00 03/13/25 08:20 Montelukast Sodium 10 Mg Tablet PO 04/10/25 08:59 10 mg QDAY HEIKE Administration Nitroglycerin 0.4 mg 03/10/25 16:53 Nitroglycerin 0.4 Mg Subl Btl #25 SL 03/15/25 16:52 Q5M PRN Chest Pain Ondansetron HCl 4 mg 03/07/25 19:55 Ondansetron Inj 2 Mg/Ml Inj 2 Ml IVP 04/06/25 19:54 Q6H PRN NAUSEA OR VOMITING Protocol Pantoprazole Sodium 40 mg 03/08/25 09:00 03/13/25 08:20 Pantoprazole 40 Mg Tablet PO 04/07/25 08:59 40 mg QDAY HEIKE Administration Plan Ms. Mccormack is a 84-year-old female with a past medical history of severe aortic stenosis, CAD status post stents, HFpEF (65% EF on 01/2025), A-fib on Eliquis, CVA 2017, polycythemia vera, pulmonary fibrosis on 2 L home O2 (baseline SpO2 95%), hypertension, gout, chronic UTIs was admitted to the hospital on 03/07/2025 for syncopal episode likely in the setting of severe aortic stenosis and for acute decompensated heart failure exacerbation. #Euvolemic hypoosmolar hyponatremia - Sodium 129, serum osmolality 261 - Patient's diuretics (Bumex 1 mg twice daily) is decreased to once daily - Urine electrolytes ordered - Nephrology consulted, appreciate recommendations #Acute hypoxic respiratory failure #Community-acquired pneumonia #Pleural effusions, right - Although patient's oxygen requirement increased from her home oxygen of 2 L to 4 L on admission. Patient's symptoms were initially likely attributed to acute CHF exacerbation. However chest x-ray is suspicious for superimposed pneumonia and patient did complain of cough with increased phlegm. Plan: - DuoNebs as needed - Supplemental oxygen - Patient is afebrile therefore no blood cultures were needed as previous blood cultures from March 07 had no growth at 48 hours - Started ceftriaxone and azithromycin on 03/10- -Repeat chest xray showed bilateraly pleural effusions, will order CT without contrast (as pt is allergic to contrast) to evaluation if effusions are large enough to require thoracenthesis. #Pulmonary mass, left and lung -chest x-rays reveals 19mm pulmonary mass which appears to be decreasing in size. -CT of chest wo contrast - Heart failure pattern with large right pleural effusion, Pulmonary mass spiculated margins left upper lobe , 6 mm pulmonary nodule right upper lobe, 3 mm pulmonary nodule left upper -US guided thoracenthesis with cell cytology ordered for -Per son, decision to biopsy the mass is pending #Syncopal episode #Acute decompensated heart failure exacerbation #Hx of severe aortic stenosis #Hx of HFpEF (65% EF on 01/2025) #Hx of CAD s/p stents #Hx of A-fib (on Eliquis) Patient came in after having a syncopal episode today in the rehab center where she went to the bathroom. Patient does have a history of severe aortic stenosis seen on echo on previous admission on January and she was supposed to follow-up with cardiology for possible TAVR. Patient has not follow-up with cardiology for TAVR as per patient's son. Patient head CT was negative and EKG showed A-fib. Patient's chest x-ray again showed CHF pattern and some possible superimposed pneumonia, but seems more like pulmonary edema than actual pneumonia. Patient has 1+ peripheral edema -Continue Bumex 1 mg IV once daily -Continue carvedilol 12.5 mg twice daily -Continue Eliquis 2.5 mg twice daily -Strict ALEX's -Daily weights -Cardiac diet, dysphagia 3 chopped -Fluid restrictions at 1800 -Keep potassium magnesium above 4 and 2 respectively -Cardiology following, appreciate recommendations -Will continue to monitor #Hx of polycythemia vera #Hx of pulmonary fibrosis on 2 L home O2 #Hx of gout #Hx of chronic UTIs #Hx of CVA 2018 #Hx of hypertension #Hx of macrocytic anemia No active signs of bleeding and hemoglobin stable Blood pressure was mildly elevated on admission -Holding home benazepril due to normotension Disposition: Patient admitted to telemetry for syncopal episode. Diet: Cardiac, 1800 ml and high protein ensure GI prophylaxis: protonix DVT prophylaxis: Eliquis Code:DNR/DNI Assessment and plan discussed with my attending physician Dr. Danielle Ladd (PGY-1)- Internal medicine resident Attending Provider Attestation/Addendum Face to face evaluation was performed by me. I have personally seen and examined the patient. I discussed the assessment and plan with the entire medicine team. I reviewed available medical records, imaging studies, laboratory results. I agree with the above subjective data, objective findings, assessment and plan except as corrected by me or noted below Syncope Severe Aortic Stenosis Acute on chronic diastolic HF, exacerbated Lung mass Lung nodules Cough Acute hypoxic respite failure with pulmonary edema CAP, bacterial likely GPC Hyponatremia, likely combination of hypobulimic from diuresis as well as SIADH from the above - Lung mass 2 cm, multiple lung nodules - On diuresis, consult nephrology for hyponatremia, sodium 129 - Cardiology on board, [facility] per cardiology recs and timing - Finish antibiotic course, wean oxygen as able - lung mass 2 cm as well as other nodules per radiology report?recommend further workup with biopsy once more stable, as well as obtain CT abdomen pelvis without contrast?she is allergic to iodine contrast apparently. Patient is aware of this plan. - Monitor labs and vitals and clinical course closely More than > 30 minutes spent on the encounter
[2025-03-13 12:44] LABS: Cocci Serology, IgM Negative (Negative)
--- NOTE | 2025-03-13 13:16 | PD.ADDDSCHGE ---
Addendum Discharge Addendum Date of report being addended: 03/13/25 Narrative: Face to face evaluation was performed by me. I have personally seen and examined the patient. I discussed the assessment and plan with the entire medicine team. I reviewed available medical records, imaging studies, laboratory results. I agree with the above subjective data, objective findings, assessment and plan except as corrected by me or noted below Syncope Severe Aortic Stenosis Acute on chronic diastolic HF, exacerbated Lung mass Lung nodules Cough Acute hypoxic respite failure with pulmonary edema CAP, bacterial likely GPC Hyponatremia, likely combination of hypobulimic from diuresis as well as SIADH from the above - Lung mass 2 cm, multiple lung nodules - On diuresis, consult nephrology for hyponatremia, sodium 129 - Cardiology on board, [facility] per cardiology recs and timing - Finish antibiotic course, wean oxygen as able - lung mass 2 cm as well as other nodules per radiology report?recommend further workup with biopsy once more stable, as well as obtain CT abdomen pelvis without contrast?she is allergic to iodine contrast apparently. Patient is aware of this plan. - Monitor labs and vitals and clinical course closely More than > 30 minutes spent on the encounter
[2025-03-13] MEDS: HEPARIN SOD INJ 5000 UNIT/ML VIAL SC ×2 (13:17→21:41)
--- NOTE | 2025-03-13 13:40 | XR_ITS ---
Examination: CT abdomen and pelvis without contrast. Coronal 3-D reconstructions. Sagittal 2-D reconstructions. Date and time of exam:March 13, 2025 1418 hours INDICATIONS: Clinical diagnosis malignancy, CT chest bilateral pulmonary masses March 12, 2025 CTDI: vol (mGy): 8.02 DLP: (mGycm): 443 Technique: Axial images of the abdomen have been obtained, 3 mm slice thickness Intravenous contrast material has not been administered. Low dose protocols were performed. One or more of the following dose reduction techniques were used; automated exposure control, adjustment of the mA and/or KV according to patient size, use of iterative reconstruction technique. Findings: Please see the CT chest report, large right moderate left pleural effusions Liver is mildly irregular in contour and enlarged, at least 16 cm Mild splenomegaly Absent gallbladder No pancreatic mass End-stage atrophic left kidney Mild left hydronephrosis without visualized ureteral calculi, which may relate to markedly distended urinary bladder Heavy abdominal aortic calcification no aneurysmal dilatation No pericecal inflammatory change Normal appendix Colonic diverticulosis Fat-containing femoral hernia No pelvic mass Prominent osteopenia Focal areas of radiolucency in both hips IMPRESSION: Hepatosplenomegaly Suspect primary hepatocellular disease End-stage atrophic left kidney Mild left hydronephrosis, likely related to significantly distended urinary bladder Normal appendix No bowel obstruction Colonic diverticulosis, no diverticulitis 3 cm focal areas of radiolucency in both hips, recommend MRI pelvis follow-up pre and postcontrast
[2025-03-13] MEDS: ALBUTEROL/IPRATROPIUM (Duoneb) RT SOL 3 ML NEBU INH (13:48)
[2025-03-13] MEDS: ACETAMINOPHEN 325 MG TABLET 650 MG PO (16:09)
[2025-03-13] MEDS: HYDROcodone/APAP 5/325 TABLET 1 TAB PO (19:32)
[2025-03-13] MEDS: MELATONIN 3 MG TABLET PO (21:25)
[2025-03-14] VITALS (13 sets, daily range): BP systolic 116–147; BP diastolic 57–81; PULSE 66–86; RESP 16–22; TEMP 36.1–36.6; O2SAT 94–99; BMI 23.3
--- NOTE | 2025-03-14 00:53 | ESPR_ITS ---
RE: TORREY SALMON : 1940 DATE OF SERVICE: 03/13/2025 Torrey is an 84-year-old lady with a history of chronic AFib, hypertension, CAD, multiple problems including polycythemia vera. Came to the hospital with severe shortness of breath and pneumonia. Still having problems with breathing, cough, shortness of breath. Not having any chest pain. White count continues to be slightly high. Hemoglobin 10. Platelet count is 482 . Clinically, she is still having some shortness of breath, weakness, general tiredness and fatigue, but improving gradually. Bumex dose was decreased already, tolerating well. Not having any heart failure exacerbation. PHYSICAL EXAMINATION: Vital Signs: On today's exam, blood pressure 160/80, pulse 60, temperature normal. Neck: Supple. Lungs: Decreased breath sounds. No rales. Heart: S1, S2 regular, distant. Abdomen: Thin and soft. Extremities: No edema. IMPRESSION/ASSESSMENT: 1. Hypoxic respiratory failure secondary to pneumonia. 2. Pleural effusion, recent admission. 3. Hyponatremia, resolved. Slightly low, but improving. 4. Congestive heart failure with preserved ejection fraction. 5. Chronic atrial fibrillation. 6. Severe and critical aortic stenosis. RECOMMENDATIONS: Continue medical management. She is still too weak to have angiogram. We will probably do as an outpatient if she improves significantly in overall condition. DT: 23:44:53 TT: 00:26:00 Ref: [id number] - TID: [id number]
[2025-03-14 05:23] LABS: Basophils # (Auto) 0.1 Thou/mm3 (0.0-0.2); Basophils % (Auto) 0 % (0-2.5); Eosinophils # (Auto) 0.2 Thou/mm3 (0.0-0.5); Eosinophils % (Auto) 1 % (0-10); Hematocrit 31.3 % (36.0-46.0); Hemoglobin 10.8 g/dL (12.0-16.0); Immature Granulocytes % (Auto) 2 % (0-0); Immature Granulocytes Auto 0.46 Thou/mm3 (0.00-0.00); Lymphocytes # (Auto) 0.9 Thou/mm3 (1.0-4.8); Lymphocytes % (Auto) 4 % (10-50); Mean Corpuscular HGB Conc 34.5 g/dl (31.0-37.0); Mean Corpuscular Hemoglobin 36.6 pg (25.0-35.0); Mean Corpuscular Volume 106 fL (80-100); Monocytes # (Auto) 0.6 Thou/mm3 (0.0-0.8); Monocytes % (Auto) 3 % (0-12); Neutrophils % (Auto) 91 % (37-80); Nucleated Red Blood Cell % 0 /100 WBC (0); Platelet Count 534 Thou/mm3 (140-440); RDW Standard Deviation 63.9 fL (36.4-46.3); Red Blood Count 2.95 Miln/mm3 (4.00-5.20); White Blood Count 23.2 Thou/mm3 (3.6-11.0)
[2025-03-14] MEDS: HEPARIN SOD INJ 5000 UNIT/ML VIAL SC ×2 (05:39→13:11)
[2025-03-14 06:10] LABS: Alanine Aminotransferase < 7 U/L (10-49); Albumin, Serum 3.1 gm/dL (3.4-4.8); Albumin/Globulin Ratio 1.4 (1.2-2.2); Alkaline Phosphatase 51 U/L (46-116); Anion Gap 8 (7-16); Aspartate Amino Transferase 13 U/L (0-34); BUN/Creatinine Ratio 31 Ratio (12-20); Bilirubin,Total 0.6 mg/dL (0.3-1.2); Blood Urea Nitrogen 25 mg/dL (9-23); Calcium 8.3 mg/dL (8.3-10.6); Carbon Dioxide 30.5 mMol/L (20.0-31.0); Chloride 89 mMol/L (98-107); Creatinine (Component) 0.8 mg/dL (0.6-1.3); Estimated Creatinine Clearance 45.2 mL/min (>60); Globulin 2.2 gm/dL (2.3-3.5); Glucose 100 mg/dL (74-106); LDH (Lactate Dehydrogenase) 425 U/L (120-246); Magnesium 1.6 mg/dL (1.6-2.6); Osmolality,Calculated 259 (275-295); Sodium 127 mMol/L (136-145); Total Protein 5.3 gm/dL (5.7-8.2); eGFR > 60 See Note
[2025-03-14] MEDS: BUMETANIDE INJ 0.25 MG/ML VIAL 4 ML 1 MG IVP (08:16)
[2025-03-14] MEDS: PANTOPRAZOLE 40 MG TABLET PO (08:17)
[2025-03-14] MEDS: allopurinoL 100 MG TABLET 300 MG PO (08:17)
[2025-03-14] MEDS: guaiFENesin ER 600 MG TABCR PO ×2 (08:17→20:13)
[2025-03-14] MEDS: MONTELUKAST SODIUM 10 MG TABLET PO (08:17)
[2025-03-14] MEDS: carVEDILOL 12.5 MG TABLET PO ×2 (08:17→16:53)
[2025-03-14] MEDS: cefTRIAXone/D5w 1gm IV premix 1 GM/50 ML BAG IV (08:17)
[2025-03-14] MEDS: AZITHROMYCIN INJ 500 MG in SODIUM CHLORIDE 0.9% 250 ML 250 ML 250 MG IV (09:23)
--- NOTE | 2025-03-14 11:07 | PD.RESPRO ---
Documentation for date of: 03/14/25 Subjective Subjective Interval history: Shereen is a 84-year-old female with a past medical history of severe aortic stenosis, CAD status post stents, HFpEF (60-65% on 04/2023), A-fib on Eliquis, CVA 2018, polycythemia vera, pulmonary fibrosis on 2 L home O2 (baseline SpO2 95%), pulmonary mass, hypertension, gout, chronic UTIs who was admitted to [facility] on 03/07/2025 after a syncopal episode. It was noted that patient was recently discharged from hospital in January 2025 and was supposed to get cardiac catheterization and TAVR for aortic stenosis leading to her recurrent respiratory failure. She was recently admitted into rehab after her hospitalization and came again after her syncopal episode. She was taking her medicines as prescribed. Her typing element machine operator is Dr. Fountain. She does not want aggressive treatment at this time, and is agreeable to getting a thoracentesis, however does not want cardiac catheterization at this time. She endorses about 130 pound weight loss over the past 3 years (unsure if this is true). She says she was 3 years ago from her . She denies being on any SSRIs. She denies having history of low sodium. No other complaints this time. ED Course: Initially patient came in hypertensive and afebrile. Initial labs were remarkable for leukocytosis, low hemoglobin, hyponatremia, hypomagnesemia, and elevated BNP. Patient's imaging included chest x-ray which showed CHF pattern and some possible superimposed pneumonia of both lungs, but is more consistent with pulmonary edema. Additional imaging can have an x-ray which was significant only for arthritic changes, head CT which was unremarkable, and EKG which showed A-fib. 03/14/2025: Patient examined at bedside today. No acute overnight events. Patient reports she slept okay. She says she is still agreeable for thoracentesis tomorrow. Her sodium today is 127, potassium 4, bicarb 31, chloride 89, BUN/creatinine 25 and 0.8 respectively, glucose 100, calcium 9, magnesium 1.6, white count 23, hemoglobin 11. Urine output 1 L. Vitals are stable. Exam Vital Signs Temp Pulse Resp BP Pulse Ox O2 Del Method O2 Flow Rate 97.0 F 83 16 147/74 H 99 Nasal Cannula 3 03/14/25 08:00 03/14/25 08:17 03/14/25 08:00 03/14/25 08:17 03/14/25 08:00 03/14/25 08:00 03/14/25 08:00 Narrative Exam General: AAOx3, NAD, elderly pleasant woman wearing glasses, poor musculature, appears to be weak HEENT: Moist mucous membranes, conjunctiva clear, EOMI, PERRLA, Cardiovascular: S1, S2, EJM, irregularly irregular, radial pulses +2 bilat Pulmonary: Poor airway entry and right lower lobe, some breath sounds heard in right lobe, no cough GI: No tenderness to light or deep palpitation, no guarding, rigidity, rebound tenderness or distension Extremities: +1 pitting edema in lower extremities bilaterally, dorsalis pedis pulses +2 bilaterally Skin: Poor skin turgor (likely related to age) Neuro: AAOx3, no focal motor or sensory deficits in the UE or LE bilat Psych: Good judgement, thought and behavior. Cooperative Objective Labs 03/14/25 04:43 03/14/25 04:43 Labs: Laboratory Results - last 24 hr 03/13/25 03/14/25 11:00 04:43 WBC 23.2 H RBC 2.95 L Hgb 10.8 L Hct 31.3 L MCV 106 H MCH 36.6 H MCHC 34.5 RDW Std Deviation 63.9 H Plt Count 534 H D Neut % (Auto) 91 H Lymph % (Auto) 4 L [place] % (Auto) 3 Eos % (Auto) 1 Baso % (Auto) 0 Neut # (Auto) 21.0 H Lymph # (Auto) 0.9 L [place] # (Auto) 0.6 Eos # (Auto) 0.2 Baso # (Auto) 0.1 Immature Gran # (Auto) 0.46 H Absolute Nucleated RBC 0.00 Immature Gran % 2 H Nucleated RBC % 0 Sodium 127 L Potassium 4.0 Chloride 89 L Carbon Dioxide 30.5 Anion Gap 8 BUN 25 H Creatinine 0.8 Estim Creat Clear Calc 45.2 L eGFR > 60 BUN/Creatinine Ratio 31 H Glucose 100 Calculated Osmolality 259 L Calcium 8.3 Corrected Calcium 9.0 Magnesium 1.6 Total Bilirubin 0.6 AST 13 ALT < 7 L Alkaline Phosphatase 51 Lactate Dehydrogenase 425 H Total Protein 5.3 L Albumin 3.1 L Globulin 2.2 L Albumin/Globulin Ratio 1.4 Coccidioides IgM Ab Negative ABG Interpretation ABG results: 03/07/25 14:41 VBG pH 7.49 VBG pCO2 37 VBG pO2 43 VBG Base Excess 5 H Quality Measures Quality Measures none Advance care planning discussed with:: patient Assessment & Plan Assessment Current Active Medications: Generic Name Dose Route Start Last Admin Trade Name Freq PRN Reason Stop Dose Admin Acetaminophen 650 mg 03/08/25 09:19 03/13/25 16:09 Acetaminophen 325 Mg Tablet PO 04/06/25 19:54 650 mg Q6H PRN Administration pain(1-3) and Fever >100.4 Hydrocodone Bitart/Acetaminophen 1 tab 03/13/25 19:08 03/13/25 19:32 Hydrocodone/Apap 5/325 Tablet PO 03/18/25 19:07 1 tab Q6HR PRN Administration PAIN SCALE 4-10(Mod-Sev Albuterol/Ipratropium 3 ml 03/07/25 19:55 03/13/25 13:48 Albuterol/Ipratropium (Duoneb) Rt Luciana 3 Ml Nebu INH 04/06/25 22:59 3 ml Q4HRRT PRN Administration SOB or Wheezing Allopurinol 300 mg 03/11/25 09:00 03/14/25 08:17 Allopurinol 100 Mg Tablet PO 04/10/25 08:59 300 mg QDAY HEIKE Administration Benzonatate 100 mg 03/09/25 21:57 03/12/25 13:58 Benzonatate 100 Mg Capsule PO 04/08/25 21:56 100 mg Q8HR PRN Administration COUGH Protocol Bumetanide 1 mg 03/11/25 12:15 03/14/25 08:16 Bumetanide Inj 0.25 Mg/Ml Vial 4 Ml IVP 04/10/25 12:14 1 mg QDAY HEIKE Administration Carvedilol 12.5 mg 03/08/25 08:00 03/14/25 08:17 Carvedilol 12.5 Mg Tablet PO 04/07/25 07:59 12.5 mg BIDWM HEIKE Administration Guaifenesin 600 mg 03/10/25 09:00 03/14/25 08:17 Guaifenesin Er 600 Mg Tabcr PO 04/09/25 08:59 600 mg BID HEIKE Administration Heparin Sodium (Porcine) 5,000 unit 03/13/25 14:00 03/14/25 05:39 Heparin Sod Inj 5000 Unit/Ml Vial SC 03/27/25 13:59 5,000 unit Q8HR HEIKE Administration Ceftriaxone Sodium/Dextrose 1 gm in 50 mls @ 100 mls/hr 03/10/25 12:37 03/14/25 08:17 Rocephin/D5w 1gm Iv Premix IV 03/17/25 12:36 100 mls/hr QDAY HEIKE Administration Azithromycin 500 mg/ Sodium 250 mls @ 250 mls/hr 03/10/25 12:37 03/14/25 09:23 Chloride IV 03/17/25 12:36 250 mls/hr QDAY HEIKE Administration Melatonin 3 mg 03/09/25 17:21 03/13/25 21:25 Melatonin 3 Mg Tablet PO 04/08/25 20:59 3 mg HS PRN Administration insomnia Montelukast Sodium 10 mg 03/11/25 09:00 03/14/25 08:17 Montelukast Sodium 10 Mg Tablet PO 04/10/25 08:59 10 mg QDAY EHIKE Administration Nitroglycerin 0.4 mg 03/10/25 16:53 Nitroglycerin 0.4 Mg Subl Btl #25 SL 03/15/25 16:52 Q5M PRN Chest Pain Ondansetron HCl 4 mg 03/07/25 19:55 Ondansetron Inj 2 Mg/Ml Inj 2 Ml IVP 04/06/25 19:54 Q6H PRN NAUSEA OR VOMITING Protocol Pantoprazole Sodium 40 mg 03/08/25 09:00 03/14/25 08:17 Pantoprazole 40 Mg Tablet PO 04/07/25 08:59 40 mg QDAY HEIKE Administration Plan Assessment Shereen is a 84-year-old female with a past medical history of severe aortic stenosis, CAD status post stents, HFpEF (60-65% on 04/2023), A-fib on Eliquis, CVA 2018, polycythemia vera, pulmonary fibrosis on 2 L home O2 (baseline SpO2 95%), pulmonary mass, hypertension, gout, chronic UTIs. #Hypoosmolar hypervolemic hyponatremia Serum osmolarity: 259 Urine sodium normal, urine chloride low, urine potassium normal This is usually unexpected with diuresis with Bumex There could be diuresis resistance or not enough diuretic or the timing of the urine was taken after Bumex was given Unlikely SIADH as patient's urine sodium is also low Hyponatremia likely related to heart failure and diuresis This could be a combination of water retention with RAAS and heart failure and also diuresis 03/14/2025: Patient sodium today is 127, chloride 89, bicarb 30.5 Sodium continues to trend down, bicarb is increasing and patient may go into contraction alkalosis Patient will continue to need diuresis at this time Plan: ? Continue CMP ? Consider rechecking urine lytes ? Free water restriction ? Continue with diuresis ? Daily weights #Acute hypoxic respiratory failure #Community-acquired pneumonia #Pleural effusions, bilateral #Syncopal episode #Acute decompensated heart failure exacerbation #Hx of severe aortic stenosis #Hx of HFpEF (65% EF on 01/2025) #Hx of CAD s/p stents #Hx of A-fib (on Eliquis) #Pulmonary mass, left lung #Hx of polycythemia vera #Hx of pulmonary fibrosis on 2 L home O2 #Hx of gout #Hx of chronic UTIs #Hx of CVA 2018 #Hx of hypertension #Hx of macrocytic anemia Above handeled by primary hospitalist team Patient seen and care discussed with my attending physician, Dr. Last Herbert, PGY-1 Attending Provider Attestation/Addendum Patient seen and examined with resident physician Dr. Gracia, Note reviewed, agree with findings and recommendations. Patient with hypervolemic hyponatremia in the setting of CHF. Urine sodium low due to RAAS activation. Agree with diuretics. Markedly improved. Under Dr. Richards. Sodium 127-will start salt tablets as patient needs diuretics for her CHF. Congestive heart failure with hyponatremia portends poor prognosis.
[2025-03-14 13:25] LABS: Cocci Serology, IgG Negative (Negative)
--- NOTE | 2025-03-14 14:48 | PC.SS ---
Rounding note: patient is pending thorasenthesis planned for tomorrow 03/15.
--- NOTE | 2025-03-14 17:34 | ESPR_ITS ---
Documentation for date of: 03/14/25 Subjective Subjective Interval history: Patient seen at bedside. There are no acute overnight events. Her 02 saturation is 92% on 3L NC. She denies fevers and chills but still endorsing shortness of breath. Discussed that she will undergo thoracentesis tomorrow with IR and she is in agreement. She denies chest pain and abdominal pain. She is in agreement to continue to hold eliquis until after thoracentesis. Exam Vital Signs Temp Pulse Resp BP Pulse Ox O2 Del Method O2 Flow Rate 97.0 F 81 18 116/57 L 97 Nasal Cannula 3 03/14/25 16:00 03/14/25 16:53 03/14/25 16:00 03/14/25 16:53 03/14/25 16:00 03/14/25 16:00 03/14/25 16:00 Narrative Exam GENERAL: A&Ox3 . Awake, Not in acute distress NEURO: no focal neurological deficits HEENT: Atraumatic, Normocephalic. mucous membranes moist. Eyes open, symmetrical, & clear HEART: systolic murmur heard LUNGS: Clear to auscultation with no wheezing or crackles. ABDOMEN: soft, non-distended, non-tender, bowel sounds heard, no guarding or rebound tenderness SKIN: No Rash or ecchymoses EXTREMITIES: 1+ non pitting edema bilaterally in LE, no tenderness, able to move all 4 extremities, pedal pulses palpated Objective Labs 03/20/25 04:35 03/20/25 04:35 Labs: Laboratory Results - last 24 hr 03/13/25 03/14/25 11:00 04:43 WBC 23.2 H RBC 2.95 L Hgb 10.8 L Hct 31.3 L MCV 106 H MCH 36.6 H MCHC 34.5 RDW Std Deviation 63.9 H Plt Count 534 H D Neut % (Auto) 91 H Lymph % (Auto) 4 L [place] % (Auto) 3 Eos % (Auto) 1 Baso % (Auto) 0 Neut # (Auto) 21.0 H Lymph # (Auto) 0.9 L [place] # (Auto) 0.6 Eos # (Auto) 0.2 Baso # (Auto) 0.1 Immature Gran # (Auto) 0.46 H Absolute Nucleated RBC 0.00 Immature Gran % 2 H Nucleated RBC % 0 Sodium 127 L Potassium 4.0 Chloride 89 L Carbon Dioxide 30.5 Anion Gap 8 BUN 25 H Creatinine 0.8 Estim Creat Clear Calc 45.2 L eGFR > 60 BUN/Creatinine Ratio 31 H Glucose 100 Calculated Osmolality 259 L Calcium 8.3 Corrected Calcium 9.0 Magnesium 1.6 Total Bilirubin 0.6 AST 13 ALT < 7 L Alkaline Phosphatase 51 Lactate Dehydrogenase 425 H Total Protein 5.3 L Albumin 3.1 L Globulin 2.2 L Albumin/Globulin Ratio 1.4 Coccidioides IgG Ab Negative ABG Interpretation ABG results: 03/07/25 14:41 VBG pH 7.49 VBG pCO2 37 VBG pO2 43 VBG Base Excess 5 H Quality Measures Quality Measures none Advance care planning discussed with:: patient Assessment & Plan Assessment Current Active Medications: Generic Name Dose Route Start Last Admin Trade Name Freq PRN Reason Stop Dose Admin Acetaminophen 650 mg 03/08/25 09:19 03/13/25 16:09 Acetaminophen 325 Mg Tablet PO 04/06/25 19:54 650 mg Q6H PRN Administration pain(1-3) and Fever >100.4 Hydrocodone Bitart/Acetaminophen 1 tab 03/13/25 19:08 03/13/25 19:32 Hydrocodone/Apap 5/325 Tablet PO 03/18/25 19:07 1 tab Q6HR PRN Administration PAIN SCALE 4-10(Mod-Sev Albuterol/Ipratropium 3 ml 03/07/25 19:55 03/13/25 13:48 Albuterol/Ipratropium (Duoneb) Rt Luciana 3 Ml Nebu INH 04/06/25 22:59 3 ml Q4HRRT PRN Administration SOB or Wheezing Allopurinol 300 mg 03/11/25 09:00 03/14/25 08:17 Allopurinol 100 Mg Tablet PO 04/10/25 08:59 300 mg QDAY HEIKE Administration Benzonatate 100 mg 03/09/25 21:57 03/12/25 13:58 Benzonatate 100 Mg Capsule PO 04/08/25 21:56 100 mg Q8HR PRN Administration COUGH Protocol Bumetanide 1 mg 03/11/25 12:15 03/14/25 08:16 Bumetanide Inj 0.25 Mg/Ml Vial 4 Ml IVP 04/10/25 12:14 1 mg QDAY HEIKE Administration Carvedilol 12.5 mg 03/08/25 08:00 03/14/25 16:53 Carvedilol 12.5 Mg Tablet PO 04/07/25 07:59 12.5 mg BIDWM HEIKE Administration Guaifenesin 600 mg 03/10/25 09:00 03/14/25 08:17 Guaifenesin Er 600 Mg Tabcr PO 04/09/25 08:59 600 mg BID HEIKE Administration Ceftriaxone Sodium/Dextrose 1 gm in 50 mls @ 100 mls/hr 03/10/25 12:37 03/14/25 08:17 Rocephin/D5w 1gm Iv Premix IV 03/17/25 12:36 100 mls/hr QDAY HEIKE Administration Azithromycin 500 mg/ Sodium 250 mls @ 250 mls/hr 03/10/25 12:37 03/14/25 09:23 Chloride IV 03/17/25 12:36 250 mls/hr QDAY HEIKE Administration Melatonin 3 mg 03/09/25 17:21 03/13/25 21:25 Melatonin 3 Mg Tablet PO 04/08/25 20:59 3 mg HS PRN Administration insomnia Montelukast Sodium 10 mg 03/11/25 09:00 03/14/25 08:17 Montelukast Sodium 10 Mg Tablet PO 04/10/25 08:59 10 mg QDAY HEIKE Administration Nitroglycerin 0.4 mg 03/10/25 16:53 Nitroglycerin 0.4 Mg Subl Btl #25 SL 03/15/25 16:52 Q5M PRN Chest Pain Ondansetron HCl 4 mg 03/07/25 19:55 Ondansetron Inj 2 Mg/Ml Inj 2 Ml IVP 04/06/25 19:54 Q6H PRN NAUSEA OR VOMITING Protocol Pantoprazole Sodium 40 mg 03/08/25 09:00 03/14/25 08:17 Pantoprazole 40 Mg Tablet PO 04/07/25 08:59 40 mg QDAY HEIKE Administration Plan Ms. Mccormack is a 84-year-old female with a past medical history of severe aortic stenosis, CAD status post stents, HFpEF (65% EF on 01/2025), A-fib on Eliquis, CVA 2018, polycythemia vera, pulmonary fibrosis on 2 L home O2 (baseline SpO2 95%), hypertension, gout, chronic UTIs was admitted to the hospital on 03/07/2025 for syncopal episode likely in the setting of severe aortic stenosis and for acute decompensated heart failure exacerbation. #Euvolemic hypoosmolar hyponatremia - most likely 2/2 to diuretics - On admission: Sodium 129, serum osmolality 261 - Patient's diuretics (Bumex 1 mg twice daily) is decreased to once daily - Urine electrolytes ordered - Nephrology consulted, appreciate recommendations - Plan: Nephrology following, diuretic was decreased however sodium slightly declined to 127. Will follow-up nephro recommendations #Acute on Chronic hypoxic respiratory failure 2/2 CAP +/- CHF exacerbation #Community-acquired pneumonia #Pulmonary fibrosis #Pleural effusions, right - Baseline 02 requirement 2L NC, on admission requiring between 4L-5L - Patient Endorses productive cough, fevers, and shortness of breath - CXR: Bilateral Pneumonia most likely 2/2 GNRs Plan: - DuoNebs as needed - Continue Supplemental oxygen, wean as tolerated - Continue ceftriaxone and azithromycin on 03/10- -Plan: Patient will go for thoracentesis in am 03/15 with IR. Continue to hold home eliquis. Will send pleural fluid for cell count, protein, LDH, gram stain/culture, and cytology #Pulmonary mass #Pulmonary nodules - findings concerning for malignancy -chest x-rays reveals 19mm pulmonary mass which appears to be decreasing in size. -CT of chest wo contrast - Heart failure pattern with large right pleural effusion, Pulmonary mass spiculated margins left upper lobe , 6 mm pulmonary nodule right upper lobe, 3 mm pulmonary nodule left upper -US guided thoracenthesis with cell cytology ordered for -Per son, decision to biopsy the mass is pending, Continue goals of care #Syncopal episode #Acute decompensated heart failure exacerbation #HFpEF (65% EF on 01/2025) #severe aortic stenosis #Hx of CAD s/p stents #Hx A-fib (on Eliquis) Patient came in after having a syncopal episode today in the rehab center where she went to the bathroom. Patient does have a history of severe aortic stenosis seen on echo on previous admission on January and she was supposed to follow-up with cardiology for possible TAVR. Patient has not follow-up with cardiology for TAVR as per patient's son. Patient head CT was negative and EKG showed A-fib. -Continue Bumex 1 mg IV once daily -Continue carvedilol 12.5 mg twice daily -Hold Eliquis 2.5 mg twice daily for thoracentesis -Strict ALEX's -Daily weights -Cardiac diet, dysphagia 3 chopped -Fluid restrictions at 1800 -Keep potassium magnesium above 4 and 2 respectively -Cardiology following, appreciate recommendations -Will continue to monitor #Hx of gout #Hx of chronic UTIs #Hx of CVA 2018 #Hx of hypertension #Hx of macrocytic anemia No active signs of bleeding and hemoglobin stable Blood pressure was mildly elevated on admission -Holding home benazepril due to normotension, Continue allopurionol Disposition: Patient originally admitted to telemetry for syncopal episode, pending further work-up of pleural effusions and pulmonary masses. Diet: Cardiac, 1800 ml and high protein ensure GI prophylaxis: protonix DVT prophylaxis: Eliquis Code:DNR/DNI Assessment and plan discussed with my attending physician Dr. Matthew Ladd (PGY-1)- Internal medicine resident Attending Provider Attestation/Addendum 84-year-old female with multiple comorbidities including hypertension, atrial fibrillation on Eliquis, coronary artery disease status post stents, heart failure with preserved EF with EF 65%, severe aortic stenosis who is currently following up with outpatient cardiology for possible TAVR, pulmonary fibrosis on 2 L supplemental oxygen at home who presented status post syncopal episode with differential diagnoses including severe aortic stenosis versus decompensated heart failure. As of now, we are diuresing the patient with improvement in symptoms and for severe aortic stenosis cardiology has been consulted and appreciate their recommendations. Furthermore, patient also noted to have significant pleural effusion requiring thoracentesis and likely related to possible CHF exacerbation.I reviewed above note and agree with findings and plans. I have also personally examined the patient with medicine team and went over assessment and plan with medical team including r d internship and resident physician.
[2025-03-14] MEDS: HYDROcodone/APAP 5/325 TABLET 1 TAB PO (17:43)
[2025-03-15] VITALS (11 sets, daily range): BP systolic 122–155; BP diastolic 54–99; PULSE 71–89; RESP 14–22; TEMP 36.2–36.8; O2SAT 92–99; BMI 24.5
--- NOTE | 2025-03-15 01:18 | ESPR_ITS ---
RE: TORREY SALMON : 1940 DATE OF SERVICE: 03/12/2025 SUBJECTIVE: The patient is an 84-year-old lady admitted to the hospital with multiple problems, history of polycythemia, CAD with stent placement, aortic stenosis, and pneumonia. He came to the hospital with these findings. He continues to have shortness of breath. He has moved to a different room today. He does not complain of any chest pain or shortness of breath. He did have a pelvic CT because of abdominal discomfort which showed evidence of no bowel obstruction. There was some diverticulosis _hepatosplenomegaly and some liver disease present. There is also atrophic left kidney, mild hydronephrosis as well. Clinically, she is still having some shortness of breath. No chest pain, orthopnea, or PND. _ The CT scan of the chest showed a pulmonary mass, large 20 cm, in the left upper lobe with spiculated margins. There is also heart failure pattern with large right pleural effusion seen. X-ray continues to show evidence of pleural effusion and possible pneumonia. IMPRESSION: 1. Pneumonia with parapneumonic effusion. 2. Congestive heart failure. 3. Positive pulmonary mass. 4. Coronary artery disease with stent placement. 5. Aortic stenosis severe and critical. RECOMMENDATIONS: Continue medical management. He has multi-system disease. For now, he is not doing that well. We will continue supportive care and monitor the patient closely. DNR status is reinstituted. DT: 00:03:47 TT: 01:17:00 Ref: [id number] - TID: [id number] [facility]
--- NOTE | 2025-03-15 05:38 | PC.NURSE ---
0566 patient received to 264 alert oriented resting comfortably vss pt denies pain at this time
[2025-03-15 06:15] LABS: Basophils # (Auto) 0.1 Thou/mm3 (0.0-0.2); Basophils % (Auto) 0 % (0-2.5); Eosinophils # (Auto) 0.2 Thou/mm3 (0.0-0.5); Eosinophils % (Auto) 1 % (0-10); Hematocrit 32.5 % (36.0-46.0); Immature Granulocytes % (Auto) 3 % (0-0); Lymphocytes # (Auto) 0.9 Thou/mm3 (1.0-4.8); Lymphocytes % (Auto) 4 % (10-50); Mean Corpuscular HGB Conc 33.8 g/dl (31.0-37.0); Mean Corpuscular Hemoglobin 36.8 pg (25.0-35.0); Mean Corpuscular Volume 109 fL (80-100); Monocytes # (Auto) 0.5 Thou/mm3 (0.0-0.8); Monocytes % (Auto) 2 % (0-12); Neutrophils # (Auto) 20.3 Thou/mm3 (1.8-7.7); Neutrophils % (Auto) 90 % (37-80); Nucleated Red Blood Cell % 0 /100 WBC (0); Platelet Count 545 Thou/mm3 (140-440); RDW Standard Deviation 64.1 fL (36.4-46.3); Red Blood Count 2.99 Miln/mm3 (4.00-5.20); White Blood Count 22.5 Thou/mm3 (3.6-11.0)
[2025-03-15 06:18] LABS: Alanine Aminotransferase 7 U/L (10-49); Albumin, Serum 3.3 gm/dL (3.4-4.8); Albumin/Globulin Ratio 1.5 (1.2-2.2); Alkaline Phosphatase 49 U/L (46-116); Anion Gap 9 (7-16); Aspartate Amino Transferase 20 U/L (0-34); BUN/Creatinine Ratio 31 Ratio (12-20); Bilirubin,Total 0.7 mg/dL (0.3-1.2); Blood Urea Nitrogen 22 mg/dL (9-23); Calcium 8.4 mg/dL (8.3-10.6); Carbon Dioxide 29.3 mMol/L (20.0-31.0); Chloride 88 mMol/L (98-107); Creatinine (Component) 0.7 mg/dL (0.6-1.3); Estimated Creatinine Clearance 56.3 mL/min (>60); Globulin 2.2 gm/dL (2.3-3.5); Glucose 113 mg/dL (74-106); Magnesium 1.5 mg/dL (1.6-2.6); Osmolality,Calculated 257 (275-295); Potassium 4.3 mMol/L (3.4-5.1); Sodium 126 mMol/L (136-145); Total Protein 5.5 gm/dL (5.7-8.2); eGFR > 60 See Note
[2025-03-15] MEDS: cefTRIAXone/D5w 1gm IV premix 1 GM/50 ML BAG IV (08:23)
[2025-03-15] MEDS: carVEDILOL 12.5 MG TABLET PO ×2 (08:24→17:28)
[2025-03-15] MEDS: BUMETANIDE INJ 0.25 MG/ML VIAL 4 ML 1 MG IVP (08:24)
[2025-03-15] MEDS: SODIUM CHLORIDE 1 GM TABLET PO (08:24)
[2025-03-15] MEDS: allopurinoL 100 MG TABLET 300 MG PO (08:24)
[2025-03-15] MEDS: MONTELUKAST SODIUM 10 MG TABLET PO (08:25)
[2025-03-15] MEDS: AZITHROMYCIN INJ 500 MG in SODIUM CHLORIDE 0.9% 250 ML 250 ML 250 MG IV (08:25)
[2025-03-15] MEDS: PANTOPRAZOLE 40 MG TABLET PO (08:25)
[2025-03-15] MEDS: guaiFENesin ER 600 MG TABCR PO ×2 (08:25→20:06)
--- NOTE | 2025-03-15 10:20 | PD.PUCONS ---
[facility] Pulmonology Consult Data of Consult Requesting Physician: Saskia Castro MD Primary Care Provider: Burak Hebert MD Consult Narrative History of present illness: Shereen is a 84-year-old female with a past medical history of severe aortic stenosis, CAD status post stents, HFpEF (60-65% on 04/2023), A-fib on Eliquis, CVA 2018, polycythemia vera, pulmonary fibrosis on 2 L home O2 (baseline SpO2 95%), pulmonary mass, hypertension, gout, chronic UTIs who was admitted to [facility] on 03/07/2025 after a syncopal episode. It was noted that patient was recently discharged from hospital in January 2025 and was supposed to get cardiac catheterization and TAVR for aortic stenosis leading to her recurrent respiratory failure. She was recently admitted into rehab after her hospitalization and came again after her syncopal episode. She was taking her medicines as prescribed. Her moulder operator is Dr. Fountain. She does not want aggressive treatment at this time, and is agreeable to getting a thoracentesis, however does not want cardiac catheterization at this time. She endorses about 130 pound weight loss over the past 3 years (unsure if this is true). She says she was 3 years ago from her . She denies being on any SSRIs. She denies having history of low sodium. No other complaints this time. ED Course: Initially patient came in hypertensive and afebrile. Initial labs were remarkable for leukocytosis, low hemoglobin, hyponatremia, hypomagnesemia, and elevated BNP. Patient's imaging included chest x-ray which showed CHF pattern and some possible superimposed pneumonia of both lungs, but is more consistent with pulmonary edema. Additional imaging can have an x-ray which was significant only for arthritic changes, head CT which was unremarkable, and EKG which showed A-fib. 03/14/2025: Patient examined at bedside today. No acute overnight events. Patient reports she slept okay. She says she is still agreeable for thoracentesis tomorrow. Her sodium today is 127, potassium 4, bicarb 31, chloride 89, BUN/creatinine 25 and 0.8 respectively, glucose 100, calcium 9, magnesium 1.6, white count 23, hemoglobin 11. Urine output 1 L. Vitals are stable. cc:: cc: Saskia Castro MD Meds Home Medications and Allergies Home Medications ?Medication ?Instructions ?Recorded ?Confirmed ?Type allopurinol 300 mg tablet 300 mg PO QDAY 10/11/18 03/08/25 History alpha lipoic acid 600 mg capsule 600 mg PO QDAY 01/14/23 03/08/25 History benazepril 10 mg tablet 10 mg PO BID PRN hypertension 01/14/23 03/08/25 History carvedilol 12.5 mg tablet 12.5 mg PO BID 01/14/23 03/08/25 History cetirizine 10 mg tablet 10 mg PO QDAY 01/14/23 03/08/25 History cholecalciferol (vitamin D3) 125 5,000 unit PO QDAY 01/14/23 03/08/25 History mcg (5,000 unit) tablet (Vitamin D3) folic acid 1 mg tablet 1 mg PO TID 01/14/23 03/08/25 History montelukast 10 mg tablet 10 mg PO QDAY 01/14/23 03/08/25 History omeprazole 40 mg capsule,delayed 40 mg PO QDAY 01/14/23 03/08/25 History release apixaban 2.5 mg tablet (Eliquis) 2.5 mg PO BID 01/15/23 03/08/25 History nitroglycerin 0.4 mg sublingual 0.4 mg buccal Q5M PRN Chest Pain 01/15/23 03/08/25 History tablet albuterol sulfate 90 mcg/actuation 1 inh inhalation BID 07/09/23 03/08/25 History aerosol inhaler bumetanide 1 mg tablet 1 mg PO QDAY 07/09/23 03/08/25 History guaifenesin 600 mg tablet,extended 600 mg PO BID 07/09/23 03/08/25 History release hydroxyurea 500 mg capsule 1,000 mg PO HS 07/09/23 03/08/25 History budesonide 160 mcg-glycopyr 9 2 inh inhalation BID 12/18/24 03/08/25 History mcg-formot 4.8 mcg/actuation HFA inhaler (Breztri Aerosphere) Allergies Allergy/AdvReac Type Severity Reaction Status Date / Time iodine Allergy Severe Swelling Verified 03/12/25 19:50 of Lip/Tongue/Throat shellfish derived Allergy Severe Swelling Verified 03/12/25 19:50 of Lip/Tongue/Throat Exam Vital Signs Temp Pulse Resp BP Pulse Ox O2 Del Method O2 Flow Rate 98.2 F 81 15 133/73 H 95 Nasal Cannula 2 03/15/25 12:00 03/15/25 12:00 03/15/25 12:00 03/15/25 12:00 03/15/25 12:00 03/15/25 12:00 03/15/25 12:00 Results - Obstetric Anaesthetist Labs 03/23/25 04:58 03/23/25 04:58 Labs: Short CBC 03/15/25 Range/Units 05:13 WBC 22.5 H (3.6-11.0) Thou/mm3 Hgb 11.0 L (12.0-16.0) g/dL Hct 32.5 L (36.0-46.0) % Plt Count 545 H (140-440) Thou/mm3 BMP 03/15/25 05:13 Sodium 126 L Potassium 4.3 Chloride 88 L Carbon Dioxide 29.3 BUN 22 Creatinine 0.7 Glucose 113 H Calcium 8.4 Liver Function 03/15/25 Range/Units 05:13 Total Bilirubin 0.7 (0.3-1.2) mg/dL AST 20 (0-34) U/L ALT 7 L (10-49) U/L Alkaline Phosphatase 49 (46-116) U/L Albumin 3.3 L (3.4-4.8) gm/dL ABG Interpretation ABG results: 03/07/25 14:41 VBG pH 7.49 VBG pCO2 37 VBG pO2 43 VBG Base Excess 5 H Assessment & Plan Additional Plan Additional Plan: PLAN: See MD orders and discussion above. Will continue supportive care of the organ system problems, diagnoses, and failures noted above. [A central line continues to be necessary for infusion of medications and IV fluids, it is to be removed when other adequate venous access is accomplished.] [Cannot be safely managed without restraints as potential for harm secondary to inadvertent movement and loss of tubes and lines outweighs the burdens of restraint.] This patient is critically ill and required [] minutes of my time to provide documentation, evaluate, manage and maintain or prevent deterioration of the organ systems and problems noted above. This critical care time does not include time I spent performing procedures that are reported separately. [If barrios catheter present, it remains necessary to monitor urine output continuously, and/or divert urine from the skin. It will be removed per policy when it is not needed for these purposes.] Provider Notation Provider Notation: Although this document has been carefully reviewed, there may still be some phonetic and other typographical errors. These errors are purely grammatical due to imperfections in the software program and should not be construed in any way to compromise the substance of the patient's medical care during this visit. Thank you for the opportunity and privilege in assisting you with this patient's care and management.
[2025-03-15] MEDS: HYDROcodone/APAP 5/325 TABLET 1 TAB PO ×2 (11:49→17:27)
[2025-03-15 12:33] LABS: Band Neutrophils (Manual) 12 % (0-6); Lymphocytes (Manual) 4 % (20-44); Monocytes (Manual) 3 % (2-9); Neutrophils (Manual) 81 % (50-70)
--- NOTE | 2025-03-15 12:42 | XR_ITS ---
Examination: AP chest single view Technique one AP portable upright chest single view Date and time: March 15, 2025 at 1250 hours Comparison March 12, 2025 INDICATIONS: Status post thoracentesis FINDINGS: No pneumothorax post thoracentesis Mild enlargement cardiac contour with prominent vascular congestion Pneumonia left base Small bilateral pleural effusions IMPRESSION: No pneumothorax post thoracentesis
[2025-03-15 13:24] LABS: Pleural Fluid WBC 83 /cmm
[2025-03-15 13:25] LABS: Pleural Fluid Appearance Hazy; Pleural Fluid Color Yellow; Pleural Fluid Mononuclear 69 %; Pleural Fluid Polynuclear 31 %; Pleural Fluid RBC 224 /cmm
--- NOTE | 2025-03-15 13:43 | PD.RESPRO ---
Documentation for date of: 03/15/25 Subjective Subjective Interval history: No acute overnight events reported. Pt is seen and examined at bedside this morning. Pt continues to have SOB, saturating well on 3L of oxygen. Pt states she is tired because of lack of sleep. However appetite is stable. labs are reviewed, pt continues to have hyponatremia likely secondary to diueretics use. Per nephrology recommendations will transition Bumex IV to PO and started pt on salt tablets. Pt continues to have leukocyte count of 22.5, Hgb is stable. Pt underwent thoracenthesis and 1.9L of fluid was removed, pleural fluid was sent for cytology. will continue IV antibiotics and continue to monitor the pt. Exam Vital Signs Temp Pulse Resp BP Pulse Ox O2 Del Method O2 Flow Rate 98.2 F 81 15 133/73 H 95 Nasal Cannula 2 03/15/25 12:00 03/15/25 12:00 03/15/25 12:00 03/15/25 12:00 03/15/25 12:00 03/15/25 12:03/15/25 12:00 Narrative Exam GENERAL: A&Ox3 . Awake, Not in acute distress NEURO: no focal neurological deficits noted HEENT: Atraumatic, Normocephalic. mucous membranes moist. Eyes open, symmetrical, & clear HEART: systolic murmur heard LUNGS: Clear to auscultation with no wheezing or crackles. ABDOMEN: soft, non-distended, non-tender, bowel sounds heard, no guarding or rebound tenderness SKIN: No Rash or ecchymoses EXTREMITIES: 1+ non pitting edema bilaterally in LE, no tenderness, able to move all 4 extremities, pedal pulses palpated Objective Labs 03/20/25 04:35 03/20/25 04:35 Labs: Laboratory Results - last 24 hr 03/15/25 03/15/25 05:13 12:41 WBC 22.5 H RBC 2.99 L Hgb 11.0 L Hct 32.5 L MCV 109 H MCH 36.8 H MCHC 33.8 RDW Std Deviation 64.1 H Plt Count 545 H Neut % (Auto) 90 H Lymph % (Auto) 4 L Barnes % (Auto) 2 Eos % (Auto) 1 Baso % (Auto) 0 Neut # (Auto) 20.3 H Lymph # (Auto) 0.9 L Barnes # (Auto) 0.5 Eos # (Auto) 0.2 Baso # (Auto) 0.1 Immature Gran # (Auto) 0.60 H Absolute Nucleated RBC 0.00 Immature Gran % 3 H Neutrophils % (Manual) 81 H Monocytes % (Manual) 3 Nucleated RBC % 0 Band Neutrophils 12 H Lymphocytes (Manual) 4 L Sodium 126 L Potassium 4.3 Chloride 88 L Carbon Dioxide 29.3 Anion Gap 9 BUN 22 Creatinine 0.7 Estim Creat Clear Calc 56.3 L eGFR > 60 BUN/Creatinine Ratio 31 H Glucose 113 H Calculated Osmolality 257 L Calcium 8.4 Corrected Calcium 9.0 Magnesium 1.5 L Total Bilirubin 0.7 AST 20 ALT 7 L Alkaline Phosphatase 49 Total Protein 5.5 L Albumin 3.3 L Globulin 2.2 L Albumin/Globulin Ratio 1.5 Pleural Color Yellow Pleural Appearance Hazy Pleural WBC 83 Pleural RBC 224 Pleural Polynuclear WBC 31 Pleural Mononuclear WBC 69 ABG Interpretation ABG results: 03/07/25 14:41 VBG pH 7.49 VBG pCO2 37 VBG pO2 43 VBG Base Excess 5 H Quality Measures Quality Measures none Advance care planning discussed with:: patient and child Assessment & Plan Assessment Current Active Medications: Generic Name Dose Route Start Last Admin Trade Name Freq PRN Reason Stop Dose Admin Acetaminophen 650 mg 03/08/25 09:19 03/13/25 16:09 Acetaminophen 325 Mg Tablet PO 04/06/25 19:54 650 mg Q6H PRN Administration pain(1-3) and Fever >100.4 Hydrocodone Bitart/Acetaminophen 1 tab 03/13/25 19:08 03/15/25 11:49 Hydrocodone/Apap 5/325 Tablet PO 03/18/25 19:07 1 tab Q6HR PRN Administration PAIN SCALE 4-10(Mod-Sev Albuterol/Ipratropium 3 ml 03/07/25 19:55 03/13/25 13:48 Albuterol/Ipratropium (Duoneb) Rt Luciana 3 Ml Nebu INH 04/06/25 22:59 3 ml Q4HRRT PRN Administration SOB or Wheezing Allopurinol 300 mg 03/11/25 09:00 03/15/25 08:24 Allopurinol 100 Mg Tablet PO 04/10/25 08:59 300 mg QDAY HEIKE Administration Benzonatate 100 mg 03/09/25 21:57 03/12/25 13:58 Benzonatate 100 Mg Capsule PO 04/08/25 21:56 100 mg Q8HR PRN Administration COUGH Protocol Bumetanide 1 mg 03/16/25 09:00 Bumetanide 0.5 Mg Tablet PO 04/15/25 08:59 QDAY HEIKE Carvedilol 12.5 mg 03/08/25 08:00 03/15/25 08:24 Carvedilol 12.5 Mg Tablet PO 04/07/25 07:59 12.5 mg BIDWM HEIKE Administration Guaifenesin 600 mg 03/10/25 09:00 03/15/25 08:25 Guaifenesin Er 600 Mg Tabcr PO 04/09/25 08:59 600 mg BID HEIKE Administration Ceftriaxone Sodium/Dextrose 1 gm in 50 mls @ 100 mls/hr 03/10/25 12:37 03/15/25 08:23 Rocephin/D5w 1gm Iv Premix IV 03/17/25 12:36 100 mls/hr QDAY HEIKE Administration Azithromycin 500 mg/ Sodium 250 mls @ 250 mls/hr 03/10/25 12:37 03/15/25 08:25 Chloride IV 03/17/25 12:36 250 mls/hr QDAY HEIKE Administration Melatonin 3 mg 03/09/25 17:21 03/13/25 21:25 Melatonin 3 Mg Tablet PO 04/08/25 20:59 3 mg HS PRN Administration insomnia Montelukast Sodium 10 mg 03/11/25 09:00 03/15/25 08:25 Montelukast Sodium 10 Mg Tablet PO 04/10/25 08:59 10 mg QDAY HEIKE Administration Nitroglycerin 0.4 mg 03/10/25 16:53 Nitroglycerin 0.4 Mg Subl Btl #25 SL 03/15/25 16:52 Q5M PRN Chest Pain Ondansetron HCl 4 mg 03/07/25 19:55 Ondansetron Inj 2 Mg/Ml Inj 2 Ml IVP 04/06/25 19:54 Q6H PRN NAUSEA OR VOMITING Protocol Pantoprazole Sodium 40 mg 03/08/25 09:00 03/15/25 08:25 Pantoprazole 40 Mg Tablet PO 04/07/25 08:59 40 mg QDAY HEIKE Administration Sodium Chloride 1 gm 03/15/25 09:00 03/15/25 08:24 Sodium Chloride 1 Gm Tablet PO 04/14/25 08:59 1 gm QDAY HEIKE Administration Plan Ms. Mccormack is a 84-year-old female with a past medical history of severe aortic stenosis, CAD status post stents, HFpEF (65% EF on 01/2025), A-fib on Eliquis, CVA 2018, polycythemia vera, pulmonary fibrosis on 2 L home O2 (baseline SpO2 95%), hypertension, gout, chronic UTIs was admitted to the hospital on 03/07/2025 for syncopal episode likely in the setting of severe aortic stenosis and for acute decompensated heart failure exacerbation. #Euvolemic hypoosmolar hyponatremia - most likely 2/2 to diuretics - On admission: Sodium 129, serum osmolality 261 - Patient's diuretics (Bumex 1 mg twice daily) is decreased to once daily - Urine electrolytes WNL - Nephrology consulted, appreciate recommendations - Plan: Nephrology following, diuretic was decreased to 1mg PO daily and added salt tablets #Acute on Chronic hypoxic respiratory failure 2/2 CAP +/- CHF exacerbation #Community-acquired pneumonia #Pleural effusions, right #Pulmonary fibrosis - Baseline 02 requirement 2L NC, on admission requiring between 4L-5L - Patient Endorses productive cough, fevers, and shortness of breath - CXR: Bilateral Pneumonia most likely 2/2 GNRs -Pt is s/p thoracenthesis and 1.9L of plural fluid is removed. Plan: - DuoNebs as needed - Continue Supplemental oxygen, wean as tolerated - Continue ceftriaxone and azithromycin on 03/10- -Plan: Patient is s/p thoracentesis 03/15. Continue to hold home eliquis. Sent pleural fluid for cell count, protein, LDH, gram stain/culture, and cytology #Pulmonary mass #Pulmonary nodules - findings concerning for malignancy -chest x-rays reveals 19mm pulmonary mass which appears to be decreasing in size. -CT of chest wo contrast - Heart failure pattern with large right pleural effusion, Pulmonary mass spiculated margins left upper lobe , 6 mm pulmonary nodule right upper lobe, 3 mm pulmonary nodule left upper -US guided thoracenthesis with cell cytology ordered for -Per son, family and pt have decided to not undergo lung biopsy as pt is very frail and weak, will wait for cell cytology of the pleural fluid. #Syncopal episode #Acute decompensated heart failure exacerbation #HFpEF (65% EF on 01/2025) #severe aortic stenosis #Hx of CAD s/p stents #Hx A-fib (on Eliquis) Patient came in after having a syncopal episode today in the rehab center where she went to the bathroom. Patient does have a history of severe aortic stenosis seen on echo on previous admission on January and she was supposed to follow-up with cardiology for possible TAVR. Patient has not follow-up with cardiology for TAVR as per patient's son. Patient head CT was negative and EKG showed A-fib. -Continue Bumex 1 mg IV once daily -Continue carvedilol 12.5 mg twice daily -Hold Eliquis 2.5 mg twice daily for thoracentesis -Strict ALEX's -Daily weights -Cardiac diet, dysphagia 3 chopped -Fluid restrictions at 1800 -Keep potassium magnesium above 4 and 2 respectively -Cardiology following, appreciate recommendations -Will continue to monitor #Hx of gout #Hx of chronic UTIs #Hx of CVA 2017 #Hx of hypertension #Hx of macrocytic anemia No active signs of bleeding and hemoglobin stable Blood pressure was mildly elevated on admission -Holding home benazepril due to normotension, Continue allopurionol Disposition: Patient originally admitted to telemetry for syncopal episode, pending further work-up of pleural effusions and pulmonary masses. Diet: Cardiac, 1800 ml and high protein ensure GI prophylaxis: protonix DVT prophylaxis: Eliquis Code:DNR/DNI Assessment and plan discussed with my attending physician Dr. Matthew Ladd (PGY-1)- Internal medicine resident Attending Provider Attestation/Addendum 84-year-old female with multiple comorbidities including hypertension, atrial fibrillation on Eliquis, coronary artery disease status post stents, heart failure with preserved EF with EF 65%, severe aortic stenosis who is currently following up with outpatient cardiology for possible TAVR, pulmonary fibrosis on 2 L supplemental oxygen at home who presented status post syncopal episode with differential diagnoses including severe aortic stenosis versus decompensated heart failure. As of now, we are diuresing the patient with improvement in symptoms and for severe aortic stenosis cardiology has been consulted and appreciate their recommendations. Furthermore, patient also noted to have significant pleural effusion requiring thoracentesis and likely related to possible CHF exacerbation. As of now, patient's oxygen requirement is going down however continued to be fluid overloaded for which we will continue IV diuretic therapy. I reviewed above note and agree with findings and plans. I have also personally examined the patient with medicine team and went over assessment and plan with medical team including hospitality intern and resident physician.
--- NOTE | 2025-03-15 14:15 | PC.SS ---
Addendum entered by Nimco Keating 03/15/25 14:48: SS follow up note; SS was contacted by Debo from [facility] and informed SS that auth was submitted, auth # [id number]. Addendum entered by Nimco Keating 03/15/25 14:34: SS follow up note; SS faxed auth referral to [employer] at [phone]. SS also sent updated Clinicals to Debo from [facility] also to submitt. Original Note: SS follow up note; SS followed up with Patient's insurance is [employer] phone: [phone]. Julita from [employer] informed SS that insurance denied SNF on 03/12. contacted Debo from [facility] and she informed SS that at the time insurance had notified her that patient was not medically cleared and therefore auth could be resubmitted once patient was medically cleared. Debo informed SS that patient's insurance had reported that patient could appeal however it could take up to 10 days. Debo informed SS that she would resubmit for auth again. will sent all clinicals to Debo for her to resubmit for auth.
[2025-03-15 14:34] LABS: Glucose,Pleural Fluid 128 mg/dL; LDH,Pleural Fluid 92 IU/L; Protein Total,Pleural Fluid < 2.0 g/dL
--- NOTE | 2025-03-15 14:44 | ESOP_ITS ---
Procedures Procedure Date / Time 03/15/25 1444 Procedure Narrative Procedure Narrative: Attending Attestation: I was present for the entire procedure. Tolerated well with no blood loss. No immediate complications. No evidence of PTX on follow up chest film with re-expansion of the right lung completely. There is small meniscus sign suggesting minimal reminant pleural effusion. Thoracentesis Indication(s): symptomatic Pleural Effusion Informed consent obtained from: patient Time out done, and the following verified: correct patient, side and site, procedure and patient position Ultrasound used: Yes Procedure location: rt. post pleural space Amount pleural fluid removed (ml): 1,900 EBL(ml): 1 Procedure comment: PROCEDURE SUMMARY: Informed consent was obtained from the patient with consent form signed and placed in the chart. Bedside US was performed which identified an appropriate pocket sufficient for pleural drainage on the right side. The appropriate side was confirmed and marked with syringe suction. Alcohol-based playground worker was used, surgical hair net was worn, and mask was worn. Sterile gown and sterile gloves were donned in sterile technique and kept on throughout the procedure. The p atient was prepped and draped in a sterile manner using chlorhexidine scrub. 1% lidocaine was used to anesthesize the skin, subcutaneous tissue, superior aspect of the rib periosteum and parietal pleura. A finder needle was then introduced over the superior aspect of the rib to locate the pleural fluid; straw-colored pleural fluid was aspirated at a depth of approximately 1 cm. A 10-blade scalpel was used to iqra the skin at the insertion site. The [id number] needle was then introduced through the skin incision into the pleural space using negative aspiration pressure. The thoracentesis catheter was then threaded without difficulty. 50 ml of translucent straw colored fluid was removed without difficulty and part was sent for pleural fluid studies. Pleural fluid was subsequently drained into an evacuation suction bottle with the total amount measuring 800 ml. The catheter was then removed with pressure held to the site until no further bleeding or leakage was noted. No immediate complications were noted during the procedure and the patient tolerated the procedure very well. A post-procedure chest X-ray is pending at the time of this note. The fluid will be sent for studies including LDH, amylase, glucose, protein, cell count, culture, anaerobic culture, and gram stain. Estimated blood loss is 0 mL. Procedure completed with the supervising attending corduroy cutting supervisor, Dr. Barrett, and senior resident, Ariana Hansen PGY-2. Larry Ladd, PGY-1
--- NOTE | 2025-03-15 15:26 | ESPR_ITS ---
Documentation for date of: 03/15/25 Subjective Subjective Interval history: Shereen is a 84-year-old female with a past medical history of severe aortic stenosis, CAD status post stents, HFpEF (60-65% on 04/2023), A-fib on Eliquis, CVA 2018, polycythemia vera, pulmonary fibrosis on 2 L home O2 (baseline SpO2 95%), pulmonary mass, hypertension, gout, chronic UTIs who was admitted to [facility] on 03/07/2025 after a syncopal episode. It was noted that patient was recently discharged from hospital in January 2025 and was supposed to get cardiac catheterization and TAVR for aortic stenosis leading to her recurrent respiratory failure. She was recently admitted into rehab after her hospitalization and came again after her syncopal episode. She was taking her medicines as prescribed. Her occupational therapy aides teacher is Dr. Fountain. She does not want aggressive treatment at this time, and is agreeable to getting a thoracentesis, however does not want cardiac catheterization at this time. She endorses about 130 pound weight loss over the past 3 years (unsure if this is true). She says she was 3 years ago from her . She denies being on any SSRIs. She denies having history of low sodium. No other complaints this time. ED Course: Initially patient came in hypertensive and afebrile. Initial labs were remarkable for leukocytosis, low hemoglobin, hyponatremia, hypomagnesemia, and elevated BNP. Patient's imaging included chest x-ray which showed CHF pattern and some possible superimposed pneumonia of both lungs, but is more consistent with pulmonary edema. Additional imaging can have an x-ray which was significant only for arthritic changes, head CT which was unremarkable, and EKG which showed A-fib. 03/14/2025: Patient examined at bedside today. No acute overnight events. Patient reports she slept okay. She says she is still agreeable for thoracentesis tomorrow. Her sodium today is 127, potassium 4, bicarb 31, chloride 89, BUN/creatinine 25 and 0.8 respectively, glucose 100, calcium 9, magnesium 1.6, white count 23, hemoglobin 11. Urine output 1 L. Vitals are stable. 03/15/2025: Patient examined at bedside today. No acute overnight events. Patient reports he is ready for thoracentesis. Her sodium today is 126, potassium 4.3, chloride 88, bicarb 29, BUN/creatinine 22 and 0.7 respectively, glucose 113, white count 22, hemoglobin 11, urine output 1.7 L. Vitals are stable at this time Exam Vital Signs Temp Pulse Resp BP Pulse Ox O2 Del Method O2 Flow Rate 98.2 F 81 15 133/73 H 95 Nasal Cannula 2 03/15/25 12:00 03/15/25 12:00 03/15/25 12:00 03/15/25 12:00 03/15/25 12:00 03/15/25 12:00 03/15/25 12:00 Narrative Exam General: AAOx3, NAD, elderly pleasant woman wearing glasses, poor musculature, appears to be weak HEENT: Moist mucous membranes, conjunctiva clear, EOMI, PERRLA, Cardiovascular: S1, S2, EJM, irregularly irregular, radial pulses +2 bilat Pulmonary: Poor airway entry and right lower lobe, some breath sounds heard in right lobe, no cough GI: No tenderness to light or deep palpitation, no guarding, rigidity, rebound tenderness or distension Extremities: +1 pitting edema in lower extremities bilaterally, dorsalis pedis pulses +2 bilaterally Skin: Poor skin turgor (likely related to age) Neuro: AAOx3, no focal motor or sensory deficits in the UE or LE bilat Psych: Good judgement, thought and behavior. Cooperative Objective Labs 03/15/25 05:13 03/15/25 17:53 Labs: Laboratory Results - last 24 hr 03/15/25 03/15/25 05:13 12:41 WBC 22.5 H RBC 2.99 L Hgb 11.0 L Hct 32.5 L MCV 109 H MCH 36.8 H MCHC 33.8 RDW Std Deviation 64.1 H Plt Count 545 H Neut % (Auto) 90 H Lymph % (Auto) 4 L Bailey % (Auto) 2 Eos % (Auto) 1 Baso % (Auto) 0 Neut # (Auto) 20.3 H Lymph # (Auto) 0.9 L Bailey # (Auto) 0.5 Eos # (Auto) 0.2 Baso # (Auto) 0.1 Immature Gran # (Auto) 0.60 H Absolute Nucleated RBC 0.00 Immature Gran % 3 H Neutrophils % (Manual) 81 H Monocytes % (Manual) 3 Nucleated RBC % 0 Band Neutrophils 12 H Lymphocytes (Manual) 4 L Sodium 126 L Potassium 4.3 Chloride 88 L Carbon Dioxide 29.3 Anion Gap 9 BUN 22 Creatinine 0.7 Estim Creat Clear Calc 56.3 L eGFR > 60 BUN/Creatinine Ratio 31 H Glucose 113 H Calculated Osmolality 257 L Calcium 8.4 Corrected Calcium 9.0 Magnesium 1.5 L Total Bilirubin 0.7 AST 20 ALT 7 L Alkaline Phosphatase 49 Total Protein 5.5 L Albumin 3.3 L Globulin 2.2 L Albumin/Globulin Ratio 1.5 Pleural Color Yellow Pleural Appearance Hazy Pleural WBC 83 Pleural RBC 224 Pleural Polynuclear WBC 31 Pleural Mononuclear WBC 69 Pleural Total Protein < 2.0 Pleural LDH 92 Pleural Glucose 128 ABG Interpretation ABG results: 03/07/25 14:41 VBG pH 7.49 VBG pCO2 37 VBG pO2 43 VBG Base Excess 5 H Quality Measures Quality Measures none Advance care planning discussed with:: patient Assessment & Plan Assessment Current Active Medications: Generic Name Dose Route Start Last Admin Trade Name Freq PRN Reason Stop Dose Admin Acetaminophen 650 mg 03/08/25 09:19 03/13/25 16:09 Acetaminophen 325 Mg Tablet PO 04/06/25 19:54 650 mg Q6H PRN Administration pain(1-3) and Fever >100.4 Hydrocodone Bitart/Acetaminophen 1 tab 03/13/25 19:08 03/15/25 11:49 Hydrocodone/Apap 5/325 Tablet PO 03/18/25 19:07 1 tab Q6HR PRN Administration PAIN SCALE 4-10(Mod-Sev Albuterol/Ipratropium 3 ml 03/07/25 19:55 03/13/25 13:48 Albuterol/Ipratropium (Duoneb) Rt Luciana 3 Ml Nebu INH 04/06/25 22:59 3 ml Q4HRRT PRN Administration SOB or Wheezing Allopurinol 300 mg 03/11/25 09:00 03/15/25 08:24 Allopurinol 100 Mg Tablet PO 04/10/25 08:59 300 mg QDAY HEIKE Administration Benzonatate 100 mg 03/09/25 21:57 03/12/25 13:58 Benzonatate 100 Mg Capsule PO 04/08/25 21:56 100 mg Q8HR PRN Administration COUGH Protocol Bumetanide 1 mg 03/16/25 09:00 Bumetanide 0.5 Mg Tablet PO 04/15/25 08:59 QDAY HEIKE Carvedilol 12.5 mg 03/08/25 08:00 03/15/25 08:24 Carvedilol 12.5 Mg Tablet PO 04/07/25 07:59 12.5 mg BIDWM HEIKE Administration Guaifenesin 600 mg 03/10/25 09:00 03/15/25 08:25 Guaifenesin Er 600 Mg Tabcr PO 04/09/25 08:59 600 mg BID HEIKE Administration Ceftriaxone Sodium/Dextrose 1 gm in 50 mls @ 100 mls/hr 03/10/25 12:37 03/15/25 08:23 Rocephin/D5w 1gm Iv Premix IV 03/17/25 12:36 100 mls/hr QDAY HEIKE Administration Azithromycin 500 mg/ Sodium 250 mls @ 250 mls/hr 03/10/25 12:37 03/15/25 08:25 Chloride IV 03/17/25 12:36 250 mls/hr QDAY HEIKE Administration Melatonin 3 mg 03/09/25 17:21 03/13/25 21:25 Melatonin 3 Mg Tablet PO 04/08/25 20:59 3 mg HS PRN Administration insomnia Montelukast Sodium 10 mg 03/11/25 09:00 03/15/25 08:25 Montelukast Sodium 10 Mg Tablet PO 04/10/25 08:59 10 mg QDAY HEIKE Administration Nitroglycerin 0.4 mg 03/10/25 16:53 Nitroglycerin 0.4 Mg Subl Btl #25 SL 03/15/25 16:52 Q5M PRN Chest Pain Ondansetron HCl 4 mg 03/07/25 19:55 Ondansetron Inj 2 Mg/Ml Inj 2 Ml IVP 04/06/25 19:54 Q6H PRN NAUSEA OR VOMITING Protocol Pantoprazole Sodium 40 mg 03/08/25 09:00 03/15/25 08:25 Pantoprazole 40 Mg Tablet PO 04/07/25 08:59 40 mg QDAY HEIKE Administration Sodium Chloride 1 gm 03/15/25 09:00 03/15/25 08:24 Sodium Chloride 1 Gm Tablet PO 04/14/25 08:59 1 gm QDAY HEIKE Administration Plan Assessment Shereen is a 84-year-old female with a past medical history of severe aortic stenosis, CAD status post stents, HFpEF (60-65% on 04/2023), A-fib on Eliquis, CVA 2018, polycythemia vera, pulmonary fibrosis on 2 L home O2 (baseline SpO2 95%), pulmonary mass, hypertension, gout, chronic UTIs. #Hypoosmolar hypervolemic hyponatremia Urine sodium normal, urine chloride low, urine potassium normal This is usually unexpected with diuresis with Bumex There could be diuresis resistance or not enough diuretic or the timing of the urine was taken after Bumex was given Unlikely SIADH as patient's urine sodium is also low Hyponatremia likely related to heart failure and diuresis This could be a combination of water retention with RAAS and heart failure and also diuresis 03/14/2025: Patient sodium today is 127, chloride 89, bicarb 30.5 Sodium continues to trend down, bicarb is increasing and patient may go into contraction alkalosis Patient will continue to need diuresis at this time 03/15/2025: Serum osmolarity 257; serum sodium 126 Patient sodium will continue to decrease, we will address it with salt tabs at this time We will switch diuresis from IV to oral Patients that have heart failure and hyponatremia can have poor prognosis due to constant activation of RAAS (stress) Patient's most recent echo showed EF of 30%, this could be stress related or tachycardia cardiomyopathy, cardiology on case Plan: ? Continue CMP ? Free water restriction ? Continue with diuresis ? Daily weights ? Bumex 1 mg p.o. daily ? Salt tabs 1 g daily #Acute hypoxic respiratory failure #Community-acquired pneumonia #Pleural effusions, bilateral #Syncopal episode #Acute decompensated heart failure exacerbation #Hx of severe aortic stenosis #Hx of HFpEF (65% EF on 01/2025) #Hx of CAD s/p stents #Hx of A-fib (on Eliquis) #Pulmonary mass, left lung #Hx of polycythemia vera #Hx of pulmonary fibrosis on 2 L home O2 #Hx of gout #Hx of chronic UTIs #Hx of CVA 2018 #Hx of hypertension #Hx of macrocytic anemia Above handeled by primary hospitalist team Patient seen and care discussed with my attending physician, Dr. Last Herbert, PGY-1 Attending Provider Attestation/Addendum Patient seen and examined with resident physician Dr. Garcia. Note reviewed, agree with findings and recommendations. Patient currently seen in telemetry. Still having some shortness of breath. Going for thoracentesis. Edema improved. Sodium low-salt tablets added
[2025-03-15] MEDS: TAMSULOSIN HCL 0.4 MG CAPSULE PO (16:21)
[2025-03-15 18:15] LABS: Sodium 126 mMol/L (136-145)
[2025-03-15] MEDS: APIXABAN 2.5 MG TABLET PO (20:06)
[2025-03-15] MEDS: MELATONIN 3 MG TABLET PO (20:06)
--- NOTE | 2025-03-15 22:43 | ESPR_ITS ---
RE: TORREY MCCORMACK : 1940 DATE OF SERVICE: 03/15/2025 Torrey Mccormack is doing a little better. Does not complain of any chest pain or shortness of breath. She is transferred to telemetry now. She underwent a thoracentesis, 1900 of fluid removed successfully. The patient improved significantly. She is back in telemetry floor. Not complaining of any chest pain or shortness of breath. She is somewhat drowsy and sleepy today. PHYSICAL EXAMINATION: Vital Signs: Blood pressure 133/73, pulse . Neck: Supple. No JVD. Chest: Symmetrical. Lungs: Clear. Heart: Irregular atrial fibrillation. Abdomen: Thin and soft. Extremities: Mild edema. IMPRESSION/ASSESSMENT: 1. Large right pleural effusion secondary to congestive heart failure, improved, nearly 2 liters of fluid removed. 2. Severe aortic stenosis. 3. Multivessel coronary artery disease, multivessel stent placed. 4. Pneumonia. RECOMMENDATIONS: Continue present medical management. White count is still elevated at 22.5. Monitor renal function closely, which appears to be excellent. DT: 20:50:03 TT: 21:12:00 Ref: [id number] - TID: [id number]
[2025-03-16] VITALS (11 sets, daily range): BP systolic 97–158; BP diastolic 54–86; PULSE 58–85; RESP 16–19; TEMP 36.1–36.4; O2SAT 95–100; BMI 24.3
[2025-03-16 05:36] LABS: Basophils # (Auto) 0.1 Thou/mm3 (0.0-0.2); Basophils % (Auto) 0 % (0-2.5); Eosinophils # (Auto) 0.1 Thou/mm3 (0.0-0.5); Eosinophils % (Auto) 1 % (0-10); Hematocrit 32.7 % (36.0-46.0); Immature Granulocytes % (Auto) 2 % (0-0); Immature Granulocytes Auto 0.32 Thou/mm3 (0.00-0.00); Lymphocytes # (Auto) 0.8 Thou/mm3 (1.0-4.8); Lymphocytes % (Auto) 4 % (10-50); Mean Corpuscular HGB Conc 33.6 g/dl (31.0-37.0); Mean Corpuscular Hemoglobin 35.8 pg (25.0-35.0); Mean Corpuscular Volume 107 fL (80-100); Monocytes # (Auto) 0.4 Thou/mm3 (0.0-0.8); Monocytes % (Auto) 2 % (0-12); Neutrophils # (Auto) 16.7 Thou/mm3 (1.8-7.7); Neutrophils % (Auto) 90 % (37-80); Nucleated Red Blood Cell # 0.02 Thou/mm3 (0.00-0.00); Nucleated Red Blood Cell % 0 /100 WBC (0); Platelet Count 483 Thou/mm3 (140-440); RDW Standard Deviation 63.1 fL (36.4-46.3); Red Blood Count 3.07 Miln/mm3 (4.00-5.20); White Blood Count 18.5 Thou/mm3 (3.6-11.0)
[2025-03-16 06:00] LABS: Alanine Aminotransferase < 7 U/L (10-49); Albumin, Serum 3.1 gm/dL (3.4-4.8); Albumin/Globulin Ratio 1.4 (1.2-2.2); Alkaline Phosphatase 47 U/L (46-116); Anion Gap 6 (7-16); Aspartate Amino Transferase 18 U/L (0-34); BUN/Creatinine Ratio 26 Ratio (12-20); Bilirubin,Total 0.7 mg/dL (0.3-1.2); Blood Urea Nitrogen 21 mg/dL (9-23); Calcium 8.4 mg/dL (8.3-10.6); Calcium (Corrected) 9.1 mg/dL (8.5-10.1); Carbon Dioxide 31.5 mMol/L (20.0-31.0); Chloride 90 mMol/L (98-107); Creatinine (Component) 0.8 mg/dL (0.6-1.3); Globulin 2.2 gm/dL (2.3-3.5); Glucose 108 mg/dL (74-106); Magnesium 1.6 mg/dL (1.6-2.6); Osmolality,Calculated 259 (275-295); Potassium 4.2 mMol/L (3.4-5.1); Sodium 127 mMol/L (136-145); Total Protein 5.3 gm/dL (5.7-8.2); eGFR > 60 See Note
[2025-03-16] MEDS: Magnesium Sulfate 4 GM Ivpb 4 GM/50 ML BAG IV (08:09)
[2025-03-16] MEDS: cefTRIAXone/D5w 1gm IV premix 1 GM/50 ML BAG IV (08:10)
[2025-03-16] MEDS: TAMSULOSIN HCL 0.4 MG CAPSULE PO (08:10)
[2025-03-16] MEDS: guaiFENesin ER 600 MG TABCR PO ×2 (08:10→21:02)
[2025-03-16] MEDS: APIXABAN 2.5 MG TABLET PO ×2 (08:10→21:02)
[2025-03-16] MEDS: SODIUM CHLORIDE 1 GM TABLET PO ×2 (08:10→21:01)
[2025-03-16] MEDS: PANTOPRAZOLE 40 MG TABLET PO (08:11)
[2025-03-16] MEDS: MONTELUKAST SODIUM 10 MG TABLET PO (08:11)
[2025-03-16] MEDS: HYDROcodone/APAP 5/325 TABLET 1 TAB PO ×3 (08:11→21:02)
[2025-03-16] MEDS: BUMETANIDE 0.5 MG TABLET 1 MG PO (08:11)
[2025-03-16] MEDS: carVEDILOL 12.5 MG TABLET PO ×2 (08:12→17:02)
[2025-03-16] MEDS: AZITHROMYCIN INJ 500 MG in SODIUM CHLORIDE 0.9% 250 ML 250 ML 250 MG IV (08:12)
[2025-03-16] MEDS: allopurinoL 100 MG TABLET 300 MG PO (08:12)
--- NOTE | 2025-03-16 08:41 | PC.SS ---
Addendum entered by Marci Villanueva 03/16/25 10:04: SS was informed by Debo at [facility] they have received insurance authorization. Pt is aware. Original Note: Follow up note: Pt had thoracentesis. On IV antibiotic. Pt is from [facility] and is awaiting insurance authorization.
--- NOTE | 2025-03-16 11:40 | CHAP ---
Patient was visited by the Spiritual Care Volunteer who prayed for them. (Volunteer was in the hospital from 11:00-11:40)
--- NOTE | 2025-03-16 12:26 | ESPR_ITS ---
RE: TORREY MCCORMACK : 1940 DATE OF SERVICE: 03/16/2025 SUBJECTIVE: Torrey Mccormack is doing better today. She had pleural effusion drained yesterday, continues to improve. White count came down to 18.5, not having chest pain, still general weakness and fatigue, but no shortness of breath. OBJECTIVE: Vital Signs: Blood pressure 146/60, pulse 70, respirations 19, temperature normal, saturating well on one liter nasal cannula, significantly improved after . Lungs: Decreased breath sounds, but mostly improved. Heart: S1 and S2 irregular, atrial fibrillation, systolic murmur, aortic stenosis heard. Abdomen: Thin and soft. Extremities: No significant edema. IMPRESSION: 1. Pneumonia with parapneumonic effusion. 2. Congestive heart failure, preserved ejection fraction. 3. Severe aortic stenosis. 4. Polycythemia. RECOMMENDATIONS: Continue current regimen and monitor for IV antibiotics. Once she improves, I will plan on doing cardiac workup for aortic stenosis if she is willing to have a TAVR as an outpatient, but for now, no plans for cardiac intervention or coronary angiogram. DT: 11:17:51 TT: 12:05:00 Ref: [id number] - TID: [id number]
--- NOTE | 2025-03-16 14:49 | PD.RESPRO ---
Documentation for date of: 03/16/25 Subjective Subjective Interval history: No Acute overnight events reported. Pt is seen and examined at bedside this morning. Patient is saturating 97% on 1 L oxygen via nasal cannula. Patient endorses to significant improvement in her shortness of breath and overall feeling better since the thoracentesis. Patient is tolerating oral diet. Pleural fluid analysis are consistent with transudative effusions and the cell cytology is still pending. Labs are reviewed leukocyte count is downtrending to 18.5, sodium is 127 patient was started on salt tablets by nephrology team once daily which will increase to twice daily and Bumex p.o. once daily. Patient has been experiencing urinary retention and had undergone several straight cath. Decision is made to order Barrios and patient will need to follow-up with urology outpatient. Exam Vital Signs Temp Pulse Resp BP Pulse Ox O2 Del Method O2 Flow Rate 97.5 F 70 19 146/67 H 100 Nasal Cannula 1 03/16/25 08:00 03/16/25 08:12 03/16/25 08:00 03/16/25 08:12 03/16/25 08:00 03/16/25 08:00 03/16/25 08:00 Narrative Exam GENERAL: A&Ox3 . weak, frail, lethargic appearing, Not in acute distress NEURO: no focal neurological deficits noted HEENT: Atraumatic, Normocephalic. mucous membranes moist. Eyes open, symmetrical, & clear HEART: systolic murmur heard LUNGS: Clear to auscultation with no wheezing or crackles. ABDOMEN: soft, non-distended, non-tender, bowel sounds heard, no guarding or rebound tenderness SKIN: No Rash or ecchymoses EXTREMITIES: 1+ non pitting edema bilaterally in LE, no tenderness, able to move all 4 extremities, pedal pulses palpated Objective Labs 03/20/25 04:35 03/20/25 04:35 Labs: Laboratory Results - last 24 hr 03/15/25 03/16/25 03/16/25 17:53 05:00 05:09 WBC 18.5 H RBC 3.07 L Hgb 11.0 L Hct 32.7 L MCV 107 H MCH 35.8 H MCHC 33.6 RDW Std Deviation 63.1 H Plt Count 483 H D Neut % (Auto) 90 H Lymph % (Auto) 4 L [place] % (Auto) 2 Eos % (Auto) 1 Baso % (Auto) 0 Neut # (Auto) 16.7 H Lymph # (Auto) 0.8 L [place] # (Auto) 0.4 Eos # (Auto) 0.1 Baso # (Auto) 0.1 Immature Gran # (Auto) 0.32 H Absolute Nucleated RBC 0.02 H Immature Gran % 2 H Nucleated RBC % 0 Sodium 126 L 127 L Potassium 4.2 Chloride 90 L Carbon Dioxide 31.5 H Anion Gap 6 L BUN 21 Creatinine 0.8 Estim Creat Clear Calc 49.0 L eGFR > 60 BUN/Creatinine Ratio 26 H Glucose 108 H Calculated Osmolality 259 L Calcium 8.4 Corrected Calcium 9.1 Magnesium 1.6 Total Bilirubin 0.7 AST 18 ALT < 7 L Alkaline Phosphatase 47 Total Protein 5.3 L Albumin 3.1 L Globulin 2.2 L Albumin/Globulin Ratio 1.4 ABG Interpretation ABG results: 03/07/25 14:41 VBG pH 7.49 VBG pCO2 37 VBG pO2 43 VBG Base Excess 5 H Quality Measures Quality Measures none Advance care planning discussed with:: patient Assessment & Plan Assessment Current Active Medications: Generic Name Dose Route Start Last Admin Trade Name Freq PRN Reason Stop Dose Admin Acetaminophen 650 mg 03/08/25 09:19 03/13/25 16:09 Acetaminophen 325 Mg Tablet PO 04/06/25 19:54 650 mg Q6H PRN Administration pain(1-3) and Fever >100.4 Hydrocodone Bitart/Acetaminophen 1 tab 03/13/25 19:08 03/16/25 14:47 Hydrocodone/Apap 5/325 Tablet PO 03/18/25 19:07 1 tab Q6HR PRN Administration PAIN SCALE 4-10(Mod-Sev Albuterol/Ipratropium 3 ml 03/07/25 19:55 03/13/25 13:48 Albuterol/Ipratropium (Duoneb) Rt Luciana 3 Ml Nebu INH 04/06/25 22:59 3 ml Q4HRRT PRN Administration SOB or Wheezing Allopurinol 300 mg 03/11/25 09:00 03/16/25 08:12 Allopurinol 100 Mg Tablet PO 04/10/25 08:59 300 mg QDAY HEIKE Administration Apixaban 2.5 mg 03/15/25 21:00 03/16/25 08:10 Apixaban 2.5 Mg Tablet PO 04/14/25 20:59 2.5 mg BID HEIKE Administration Benzonatate 100 mg 03/09/25 21:57 03/12/25 13:58 Benzonatate 100 Mg Capsule PO 04/08/25 21:56 100 mg Q8HR PRN Administration COUGH Protocol Bumetanide 1 mg 03/16/25 09:00 03/16/25 08:11 Bumetanide 0.5 Mg Tablet PO 04/15/25 08:59 1 mg QDAY HEIKE Administration Carvedilol 12.5 mg 03/08/25 08:00 03/16/25 08:12 Carvedilol 12.5 Mg Tablet PO 04/07/25 07:59 12.5 mg BIDWM HEIKE Administration Guaifenesin 600 mg 03/10/25 09:00 03/16/25 08:10 Guaifenesin Er 600 Mg Tabcr PO 04/09/25 08:59 600 mg BID HEIKE Administration Ceftriaxone Sodium/Dextrose 1 gm in 50 mls @ 100 mls/hr 03/10/25 12:37 03/16/25 08:10 Rocephin/D5w 1gm Iv Premix IV 03/17/25 12:36 100 mls/hr QDAY HEIKE Administration Azithromycin 500 mg/ Sodium 250 mls @ 250 mls/hr 03/10/25 12:37 03/16/25 08:12 Chloride IV 03/17/25 12:36 250 mls/hr QDAY HEIKE Administration Melatonin 3 mg 03/15/25 21:00 03/15/25 20:06 Melatonin 3 Mg Tablet PO 04/14/25 20:59 3 mg HS HEIKE Administration Montelukast Sodium 10 mg 03/11/25 09:00 03/16/25 08:11 Montelukast Sodium 10 Mg Tablet PO 04/10/25 08:59 10 mg QDAY HEIKE Administration Ondansetron HCl 4 mg 03/07/25 19:55 Ondansetron Inj 2 Mg/Ml Inj 2 Ml IVP 04/06/25 19:54 Q6H PRN NAUSEA OR VOMITING Protocol Pantoprazole Sodium 40 mg 03/08/25 09:00 03/16/25 08:11 Pantoprazole 40 Mg Tablet PO 04/07/25 08:59 40 mg QDAY HEIKE Administration Sodium Chloride 1 gm 03/16/25 09:00 03/16/25 08:10 Sodium Chloride 1 Gm Tablet PO 04/15/25 08:59 1 gm BID HEIKE Administration Tamsulosin HCl 0.4 mg 03/15/25 16:00 03/16/25 08:10 Tamsulosin Hcl 0.4 Mg Capsule PO 04/14/25 15:59 0.4 mg QDAY HEIKE Administration Plan Ms. Mccormack is a 84-year-old female with a past medical history of severe aortic stenosis, CAD status post stents, HFpEF (65% EF on 01/2025), A-fib on Eliquis, CVA 2017, polycythemia vera, pulmonary fibrosis on 2 L home O2 (baseline SpO2 95%), hypertension, gout, chronic UTIs was admitted to the hospital on 03/07/2025 for syncopal episode likely in the setting of severe aortic stenosis and for acute decompensated heart failure exacerbation. #Acute on Chronic hypoxic respiratory failure 2/2 CAP +/- CHF exacerbation - improving #Community-acquired pneumonia #Pleural effusions, right s/p thoracenthesis #Pulmonary fibrosis - Baseline 02 requirement 2L NC, on admission requiring between 4L-5L - Patient Endorses productive cough, fevers, and shortness of breath - CXR: Bilateral Pneumonia with right pleural effusions -Pt is s/p thoracenthesis and 1.9L of plural fluid is removed on 03/15/25 Plan: -DuoNebs as needed -Continue Supplemental oxygen, wean as tolerated -Continue ceftriaxone 03/10- -Azithromycin on 03/10- 03/16 -Plan: Patient is s/p thoracentesis 03/15. Sent pleural fluid for cell count, protein, LDH, gram stain/culture, and cytology #Euvolemic hypoosmolar hyponatremia - most likely 2/2 to diuretics - On admission: Sodium 129, serum osmolality 261 - Patient's diuretics (Bumex 1 mg twice daily) is decreased to once daily - Urine electrolytes WNL - Nephrology consulted, appreciate recommendations - Plan: Nephrology following, diuretic was decreased to 1mg PO daily and added salt tablets BID #Pulmonary mass #Pulmonary nodules - findings concerning for malignancy -chest x-rays reveals 19mm pulmonary mass which appears to be decreasing in size. -CT of chest wo contrast - Heart failure pattern with large right pleural effusion, Pulmonary mass spiculated margins left upper lobe , 6 mm pulmonary nodule right upper lobe, 3 mm pulmonary nodule left upper -US guided thoracenthesis with cell cytology ordered for -Per son, family and pt have decided to not undergo lung biopsy as pt is very frail and weak, will wait for cell cytology of the pleural fluid. #Urinary Retention -Pt has urinary retention evident on CT scan of abdomen and pelvis -Bladder scans Q4H showed urinary retention requiring straight cath multiple times a day daily. -On 03/15 trail of tamsulosin was ordered without improvement -Barrios cath is ordered, pt will be discharged on barrios and will need outpatient urology appointment #Syncopal episode- resolved #Acute decompensated heart failure exacerbation #HFpEF (65% EF on 01/2025) #severe aortic stenosis #Hx of CAD s/p stents #Hx A-fib (on Eliquis) Patient came in after having a syncopal episode today in the rehab center where she went to the bathroom. Patient does have a history of severe aortic stenosis seen on echo on previous admission on January and she was supposed to follow-up with cardiology for possible TAVR. Patient has not follow-up with cardiology for TAVR as per patient's son. Patient head CT was negative and EKG showed A-fib. CHADsVASc 5 -Continue Bumex 1 mg IV once daily -Continue carvedilol 12.5 mg twice daily -Eliquis 2.5 mg twice daily -Strict ALEX's -Daily weights -Cardiac diet, dysphagia 3 chopped -Fluid restrictions at 1800 -Keep potassium magnesium above 4 and 2 respectively -Cardiology following, appreciate recommendations -Will continue to monitor #Hx of gout #Hx of chronic UTIs #Hx of CVA 2018 #Hx of hypertension #Hx of macrocytic anemia No active signs of bleeding and hemoglobin stable Blood pressure was mildly elevated on admission -Holding home benazepril due to normotension, Continue allopurionol Disposition: Patient originally admitted to telemetry for syncopal episode, pending further work-up of pleural effusions and pulmonary masses. Diet: Cardiac, 1800 ml and high protein ensure GI prophylaxis: protonix DVT prophylaxis: Eliquis Code:DNR/DNI Assessment and plan discussed with my attending physician Dr. Matthew Ladd (PGY-1)- Internal medicine resident Attending Provider Attestation/Addendum 84-year-old female with multiple comorbidities including hypertension, atrial fibrillation on Eliquis, coronary artery disease status post stents, heart failure with preserved EF with EF 65%, severe aortic stenosis who is currently following up with outpatient cardiology for possible TAVR, pulmonary fibrosis on 2 L supplemental oxygen at home who presented status post syncopal episode with differential diagnoses including severe aortic stenosis versus decompensated heart failure. As of now, we are diuresing the patient with improvement in symptoms and for severe aortic stenosis cardiology has been consulted and appreciate their recommendations. Furthermore, patient also noted to have significant pleural effusion requiring thoracentesis and likely related to possible CHF exacerbation. As of now, patient's oxygen requirement is going down however continued to be fluid overloaded for which we will continue IV diuretic therapy. I reviewed above note and agree with findings and plans. I have also personally examined the patient with medicine team and went over assessment and plan with medical team including inclusion internship and resident physician.
--- NOTE | 2025-03-16 14:56 | PD.RESPRO ---
Documentation for date of: 03/16/25 Subjective Subjective Interval history: Shereen is a 84-year-old female with a past medical history of severe aortic stenosis, CAD status post stents, HFpEF (60-65% on 04/2023), A-fib on Eliquis, CVA 2018, polycythemia vera, pulmonary fibrosis on 2 L home O2 (baseline SpO2 95%), pulmonary mass, hypertension, gout, chronic UTIs who was admitted to [facility] on 03/07/2025 after a syncopal episode. It was noted that patient was recently discharged from hospital in January 2025 and was supposed to get cardiac catheterization and TAVR for aortic stenosis leading to her recurrent respiratory failure. She was recently admitted into rehab after her hospitalization and came again after her syncopal episode. She was taking her medicines as prescribed. 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 She does not want aggressive treatment at this time, and is agreeable to getting a thoracentesis, however does not want cardiac catheterization at this time. She endorses about 130 pound weight loss over the past 3 years (unsure if this is true). She says she was 3 years ago from her . She denies being on any SSRIs. She denies having history of low sodium. No other complaints this time. ED Course: Initially patient came in hypertensive and afebrile. Initial labs were remarkable for leukocytosis, low hemoglobin, hyponatremia, hypomagnesemia, and elevated BNP. Patient's imaging included chest x-ray which showed CHF pattern and some possible superimposed pneumonia of both lungs, but is more consistent with pulmonary edema. Additional imaging can have an x-ray which was significant only for arthritic changes, head CT which was unremarkable, and EKG which showed A-fib. 03/14/2025: Patient examined at bedside today. No acute overnight events. Patient reports she slept okay. She says she is still agreeable for thoracentesis tomorrow. Her sodium today is 127, potassium 4, bicarb 31, chloride 89, BUN/creatinine 25 and 0.8 respectively, glucose 100, calcium 9, magnesium 1.6, white count 23, hemoglobin 11. Urine output 1 L. Vitals are stable. 03/15/2025: Patient examined at bedside today. No acute overnight events. Patient reports he is ready for thoracentesis. Her sodium today is 126, potassium 4.3, chloride 88, bicarb 29, BUN/creatinine 22 and 0.7 respectively, glucose 113, white count 22, hemoglobin 11, urine output 1.7 L. Vitals are stable at this time 03/16/2025: Patient examined at bedside, reported improvement in swelling, s/p thoracentesis, noted improvement in serum sodium, sodium 127, potassium 4.2, BUN 21, creatinine 0.8, increase salt tabs to twice daily. Patient serum sodium has been stable, can continue with salt tabs, continue Bumex 1 mg p.o., nephrology will sign off of the patient, please do not hesitate to contact again if any further queries. Exam Vital Signs Temp Pulse Resp BP Pulse Ox O2 Del Method O2 Flow Rate 97.5 F 70 19 146/67 H 100 Nasal Cannula 1 03/16/25 08:00 03/16/25 08:12 03/16/25 08:00 03/16/25 08:12 03/16/25 08:00 03/16/25 08:00 03/16/25 08:00 Narrative Exam General: AAOx3, NAD, elderly pleasant woman wearing glasses, poor musculature, appears to be weak HEENT: Moist mucous membranes, conjunctiva clear, EOMI, PERRLA, Cardiovascular: S1, S2, EJM, irregularly irregular, radial pulses +2 bilat Pulmonary: Poor airway entry and right lower lobe, some breath sounds heard in right lobe, no cough GI: No tenderness to light or deep palpitation, no guarding, rigidity, rebound tenderness or distension Extremities: +1 pitting edema in lower extremities bilaterally, dorsalis pedis pulses +2 bilaterally Skin: Poor skin turgor (likely related to age) Neuro: AAOx3, no focal motor or sensory deficits in the UE or LE bilat Psych: Good judgement, thought and behavior. Cooperative Objective Labs 03/18/25 06:05 03/18/25 06:05 Labs: Laboratory Results - last 24 hr 03/15/25 03/16/25 03/16/25 17:53 05:00 05:09 WBC 18.5 H RBC 3.07 L Hgb 11.0 L Hct 32.7 L MCV 107 H MCH 35.8 H MCHC 33.6 RDW Std Deviation 63.1 H Plt Count 483 H D Neut % (Auto) 90 H Lymph % (Auto) 4 L [place] % (Auto) 2 Eos % (Auto) 1 Baso % (Auto) 0 Neut # (Auto) 16.7 H Lymph # (Auto) 0.8 L [place] # (Auto) 0.4 Eos # (Auto) 0.1 Baso # (Auto) 0.1 Immature Gran # (Auto) 0.32 H Absolute Nucleated RBC 0.02 H Immature Gran % 2 H Nucleated RBC % 0 Sodium 126 L 127 L Potassium 4.2 Chloride 90 L Carbon Dioxide 31.5 H Anion Gap 6 L BUN 21 Creatinine 0.8 Estim Creat Clear Calc 49.0 L eGFR > 60 BUN/Creatinine Ratio 26 H Glucose 108 H Calculated Osmolality 259 L Calcium 8.4 Corrected Calcium 9.1 Magnesium 1.6 Total Bilirubin 0.7 AST 18 ALT < 7 L Alkaline Phosphatase 47 Total Protein 5.3 L Albumin 3.1 L Globulin 2.2 L Albumin/Globulin Ratio 1.4 ABG Interpretation ABG results: 03/07/25 14:41 VBG pH 7.49 VBG pCO2 37 VBG pO2 43 VBG Base Excess 5 H Quality Measures Quality Measures none Advance care planning discussed with:: patient Assessment & Plan Assessment Current Active Medications: Generic Name Dose Route Start Last Admin Trade Name Freq PRN Reason Stop Dose Admin Acetaminophen 650 mg 03/08/25 09:19 03/13/25 16:09 Acetaminophen 325 Mg Tablet PO 04/06/25 19:54 650 mg Q6H PRN Administration pain(1-3) and Fever >100.4 Hydrocodone Bitart/Acetaminophen 1 tab 03/13/25 19:08 03/16/25 14:47 Hydrocodone/Apap 5/325 Tablet PO 03/18/25 19:07 1 tab Q6HR PRN Administration PAIN SCALE 4-10(Mod-Sev Albuterol/Ipratropium 3 ml 03/07/25 19:55 03/13/25 13:48 Albuterol/Ipratropium (Duoneb) Rt Luciana 3 Ml Nebu INH 04/06/25 22:59 3 ml Q4HRRT PRN Administration SOB or Wheezing Allopurinol 300 mg 03/11/25 09:00 03/16/25 08:12 Allopurinol 100 Mg Tablet PO 04/10/25 08:59 300 mg QDAY HEIKE Administration Apixaban 2.5 mg 03/15/25 21:00 03/16/25 08:10 Apixaban 2.5 Mg Tablet PO 04/14/25 20:59 2.5 mg BID HEIKE Administration Benzonatate 100 mg 03/09/25 21:57 03/12/25 13:58 Benzonatate 100 Mg Capsule PO 04/08/25 21:56 100 mg Q8HR PRN Administration COUGH Protocol Bumetanide 1 mg 03/16/25 09:00 03/16/25 08:11 Bumetanide 0.5 Mg Tablet PO 04/15/25 08:59 1 mg QDAY HEIKE Administration Carvedilol 12.5 mg 03/08/25 08:00 03/16/25 08:12 Carvedilol 12.5 Mg Tablet PO 04/07/25 07:59 12.5 mg BIDWM HEIKE Administration Guaifenesin 600 mg 03/10/25 09:00 03/16/25 08:10 Guaifenesin Er 600 Mg Tabcr PO 04/09/25 08:59 600 mg BID HEIKE Administration Ceftriaxone Sodium/Dextrose 1 gm in 50 mls @ 100 mls/hr 03/10/25 12:37 03/16/25 08:10 Rocephin/D5w 1gm Iv Premix IV 03/17/25 12:36 100 mls/hr QDAY HEIKE Administration Azithromycin 500 mg/ Sodium 250 mls @ 250 mls/hr 03/10/25 12:37 03/16/25 08:12 Chloride IV 03/17/25 12:36 250 mls/hr QDAY HEIKE Administration Melatonin 3 mg 03/15/25 21:00 03/15/25 20:06 Melatonin 3 Mg Tablet PO 04/14/25 20:59 3 mg HS HEIKE Administration Montelukast Sodium 10 mg 03/11/25 09:00 03/16/25 08:11 Montelukast Sodium 10 Mg Tablet PO 04/10/25 08:59 10 mg QDAY HEIKE Administration Ondansetron HCl 4 mg 03/07/25 19:55 Ondansetron Inj 2 Mg/Ml Inj 2 Ml IVP 04/06/25 19:54 Q6H PRN NAUSEA OR VOMITING Protocol Pantoprazole Sodium 40 mg 03/08/25 09:00 03/16/25 08:11 Pantoprazole 40 Mg Tablet PO 04/07/25 08:59 40 mg QDAY HEIKE Administration Sodium Chloride 1 gm 03/16/25 09:00 03/16/25 08:10 Sodium Chloride 1 Gm Tablet PO 04/15/25 08:59 1 gm BID HEIKE Administration Tamsulosin HCl 0.4 mg 03/15/25 16:00 03/16/25 08:10 Tamsulosin Hcl 0.4 Mg Capsule PO 04/14/25 15:59 0.4 mg QDAY HEIKE Administration Plan Assessment Shereen is a 84-year-old female with a past medical history of severe aortic stenosis, CAD status post stents, HFpEF (60-65% on 04/2023), A-fib on Eliquis, CVA 2018, polycythemia vera, pulmonary fibrosis on 2 L home O2 (baseline SpO2 95%), pulmonary mass, hypertension, gout, chronic UTIs. #Hypoosmolar hypervolemic hyponatremia Urine sodium normal, urine chloride low, urine potassium normal This is usually unexpected with diuresis with Bumex There could be diuresis resistance or not enough diuretic or the timing of the urine was taken after Bumex was given Unlikely SIADH as patient's urine sodium is also low Hyponatremia likely related to heart failure and diuresis This could be a combination of water retention with RAAS and heart failure and also diuresis 03/14/2025: Patient sodium today is 127, chloride 89, bicarb 30.5 Sodium continues to trend down, bicarb is increasing and patient may go into contraction alkalosis Patient will continue to need diuresis at this time 03/15/2025: Serum osmolarity 257; serum sodium 126 Patient sodium will continue to decrease, we will address it with salt tabs at this time We will switch diuresis from IV to oral Patients that have heart failure and hyponatremia can have poor prognosis due to constant activation of RAAS (stress) Patient's most recent echo showed EF of 30%, this could be stress related or tachycardia cardiomyopathy, cardiology on case 03/16/2025: Noted improvement in swelling, s/p thoracentesis, noted improvement in serum sodium, sodium 127, potassium 4.2, BUN 21, creatinine 0.8, increase salt tabs to twice daily. Patient serum sodium has been stable, can continue with salt tabs, nephrology will sign off of the patient, please do not hesitate to contact again if any further queries. Plan: ? Continue CMP ? Free water restriction ? Continue with diuresis ? Daily weights ? Bumex 1 mg p.o. daily ? Salt tabs 1 g BID #Acute hypoxic respiratory failure #Community-acquired pneumonia #Pleural effusions, bilateral #Syncopal episode #Acute decompensated heart failure exacerbation #Hx of severe aortic stenosis #Hx of HFpEF (65% EF on 01/2025) #Hx of CAD s/p stents #Hx of A-fib (on Eliquis) #Pulmonary mass, left lung #Hx of polycythemia vera #Hx of pulmonary fibrosis on 2 L home O2 #Hx of gout #Hx of chronic UTIs #Hx of CVA 2018 #Hx of hypertension #Hx of macrocytic anemia Above handeled by primary hospitalist team Patient seen and care discussed with my attending physician, Dr. Last Carmona PGY2 Attending Provider Attestation/Addendum Patient seen and examined with resident physician Dr. Carmona. Note reviewed, agree with findings and recommendations. Patient currently seen in telemetry. Still having some shortness of breath. s/p thoracentesis. Edema improved. Sodium low-salt tablets added.
[2025-03-16] MEDS: MELATONIN 3 MG TABLET PO (21:02)
[2025-03-17] VITALS (16 sets, daily range): BP systolic 118–145; BP diastolic 60–74; PULSE 62–86; RESP 14–18; TEMP 36.1–36.2; O2SAT 90–99
[2025-03-17] MEDS: BUMETANIDE 0.5 MG TABLET 1 MG PO (08:29)
[2025-03-17] MEDS: carVEDILOL 12.5 MG TABLET PO ×2 (08:30→17:38)
[2025-03-17] MEDS: SODIUM CHLORIDE 1 GM TABLET PO ×2 (08:30→21:22)
[2025-03-17] MEDS: MONTELUKAST SODIUM 10 MG TABLET PO (08:30)
[2025-03-17] MEDS: APIXABAN 2.5 MG TABLET PO ×2 (08:30→21:22)
[2025-03-17] MEDS: TAMSULOSIN HCL 0.4 MG CAPSULE PO (08:32)
[2025-03-17] MEDS: PANTOPRAZOLE 40 MG TABLET PO (08:32)
[2025-03-17] MEDS: allopurinoL 100 MG TABLET 300 MG PO (08:32)
[2025-03-17] MEDS: guaiFENesin ER 600 MG TABCR PO ×2 (08:32→21:22)
[2025-03-17] MEDS: cefTRIAXone/D5w 1gm IV premix 1 GM/50 ML BAG IV (08:32)
[2025-03-17 09:15] LABS: Basophils % (Auto) 0 % (0-2.5); Eosinophils # (Auto) 0.2 Thou/mm3 (0.0-0.5); Eosinophils % (Auto) 1 % (0-10); Hematocrit 29.5 % (36.0-46.0); Hemoglobin 10.3 g/dL (12.0-16.0); Immature Granulocytes % (Auto) 2 % (0-0); Immature Granulocytes Auto 0.27 Thou/mm3 (0.00-0.00); Lymphocytes # (Auto) 0.5 Thou/mm3 (1.0-4.8); Lymphocytes % (Auto) 3 % (10-50); Mean Corpuscular HGB Conc 34.9 g/dl (31.0-37.0); Mean Corpuscular Volume 103 fL (80-100); Monocytes # (Auto) 0.6 Thou/mm3 (0.0-0.8); Monocytes % (Auto) 4 % (0-12); Neutrophils # (Auto) 15.8 Thou/mm3 (1.8-7.7); Neutrophils % (Auto) 91 % (37-80); Nucleated Red Blood Cell # 0.02 Thou/mm3 (0.00-0.00); Nucleated Red Blood Cell % 0 /100 WBC (0); Platelet Count 482 Thou/mm3 (140-440); RDW Standard Deviation 59.8 fL (36.4-46.3); Red Blood Count 2.86 Miln/mm3 (4.00-5.20); White Blood Count 17.4 Thou/mm3 (3.6-11.0)
[2025-03-17 09:28] LABS: Anion Gap 9 (7-16); BUN/Creatinine Ratio 30 Ratio (12-20); Blood Urea Nitrogen 24 mg/dL (9-23); Calcium 8.2 mg/dL (8.3-10.6); Chloride 88 mMol/L (98-107); Creatinine (Component) 0.8 mg/dL (0.6-1.3); Estimated Creatinine Clearance 50.7 mL/min (>60); Glucose 149 mg/dL (74-106); Magnesium 1.8 mg/dL (1.6-2.6); Osmolality,Calculated 258 (275-295); Potassium 4.2 mMol/L (3.4-5.1); Sodium 125 mMol/L (136-145); eGFR > 60 See Note
[2025-03-17] MEDS: AZITHROMYCIN INJ 500 MG in SODIUM CHLORIDE 0.9% 250 ML 250 ML 250 MG IV (10:17)
--- NOTE | 2025-03-17 13:03 | PD.RESPRO ---
Documentation for date of: 03/17/25 Subjective Subjective Interval history: CC: swelling of legs Patient is an 84-year-old female with a past medical history of CAD multi-vessel disease status post PCI LAD and RCA (2017), severe aortic stenosis, CHF HFpEF 65% (), chronic atrial fibrillation, history of hypertension, hyperlipidemia, gout history of CVA, interstitial fibrosis, interstitial lung with home oxygen 2 L, disease to the emergency room by EMS on 03/07/2025 with a chief complaint of syncopal episodes and bilateral leg swelling and weakness. Patient was admitted overnight for syncope acute on chronic decompensated heart failure. Nephrology consulted for hyper-osmolar hypo-volemic hyponatremia. Cardiology consulted for CHF exacerbation. 03/17/2025: No overnight events reported. Patient examined at bedside. Patient complaining of a temporal headache. Patient denied chest pain or shortness of breath. Patient denied palpitations. Patient still continues to have significant edema and most of it is in the sacral area. BNP also is 584. Her dry weight also did not change much since admission. Patient's sodium is still 125 and is minimally confused. Heart failure mostly secondary to the severe aortic stenosis in the setting of HFpEF. Recommend aggressive diuresis for now with Bumex 1 mg IV twice daily and fluid restriction of at least 1.5 L/day. Needs to be net -1 to 2 L/day. Exam Vital Signs Temp Pulse Resp BP Pulse Ox O2 Del Method O2 Flow Rate 97.1 F 72 18 129/65 99 Nasal Cannula 3 03/17/25 08:00 03/17/25 10:12 03/17/25 08:00 03/17/25 08:30 03/17/25 08:00 03/17/25 08:00 03/17/25 08:00 Narrative Exam General Appearance: Alert & Oriented X3, thin female who is lying in bed in no acute distress HEENT: Skull symmetrical and atraumatic. Conjunctivae pale pink and moist. Pupils equal, round, reactive to light and accommodation (PERRL). Cardio: Normal Rate and irregular rhythm with S1 and S2 heart sounds. Systolic Murmur noted. No bruits on carotid auscultation. Trace peripheral edema. Lungs: Symmetric with equal expansion. Chest and back non-tender. Breath sounds vesicular without crackles, wheezing or rhonchi Abdomen: Non-tender, Non-distended, Normal Reactive Bowel Sounds Neuro: Alert, cooperative, oriented to person, place, and time. Speech clear. CN grossly intact. Upper motor strength 5/5 and Lower motor strength 3/5. Sensation intact. Objective Labs 03/18/25 06:05 03/18/25 06:05 Labs: Laboratory Results - last 24 hr 03/17/25 08:44 WBC 17.4 H RBC 2.86 L Hgb 10.3 L Hct 29.5 L MCV 103 H MCH 36.0 H MCHC 34.9 RDW Std Deviation 59.8 H Plt Count 482 H Neut % (Auto) 91 H Lymph % (Auto) 3 L Chase % (Auto) 4 Eos % (Auto) 1 Baso % (Auto) 0 Neut # (Auto) 15.8 H Lymph # (Auto) 0.5 L Chase # (Auto) 0.6 Eos # (Auto) 0.2 Baso # (Auto) 0.0 Immature Gran # (Auto) 0.27 H Absolute Nucleated RBC 0.02 H Immature Gran % 2 H Nucleated RBC % 0 Sodium 125 L Potassium 4.2 Chloride 88 L Carbon Dioxide 28.0 Anion Gap 9 BUN 24 H Creatinine 0.8 Estim Creat Clear Calc 50.7 L eGFR > 60 BUN/Creatinine Ratio 30 H Glucose 149 H Calculated Osmolality 258 L Calcium 8.2 L Magnesium 1.8 ABG Interpretation ABG results: 03/07/25 14:41 VBG pH 7.49 VBG pCO2 37 VBG pO2 43 VBG Base Excess 5 H Quality Measures Quality Measures none Advance care planning discussed with:: patient Assessment & Plan Assessment Current Active Medications: Generic Name Dose Route Start Last Admin Trade Name Prashant PRN Reason Stop Dose Admin Acetaminophen 650 mg 03/08/25 09:19 03/13/25 16:09 Acetaminophen 325 Mg Tablet PO 04/06/25 19:54 650 mg Q6H PRN Administration pain(1-3) and Fever >100.4 Hydrocodone Bitart/Acetaminophen 1 tab 03/13/25 19:08 03/16/25 21:02 Hydrocodone/Apap 5/325 Tablet PO 03/18/25 19:07 1 tab Q6HR PRN Administration PAIN SCALE 4-10(Mod-Sev Albuterol/Ipratropium 3 ml 03/07/25 19:55 03/13/25 13:48 Albuterol/Ipratropium (Duoneb) Rt Luciana 3 Ml Nebu INH 04/06/25 22:59 3 ml Q4HRRT PRN Administration SOB or Wheezing Allopurinol 300 mg 03/11/25 09:00 03/17/25 08:32 Allopurinol 100 Mg Tablet PO 04/10/25 08:59 300 mg QDAY HEIKE Administration Apixaban 2.5 mg 03/15/25 21:00 03/17/25 08:30 Apixaban 2.5 Mg Tablet PO 04/14/25 20:59 2.5 mg BID HEIKE Administration Benzonatate 100 mg 03/09/25 21:57 03/12/25 13:58 Benzonatate 100 Mg Capsule PO 04/08/25 21:56 100 mg Q8HR PRN Administration COUGH Protocol Bumetanide 1 mg 03/16/25 09:00 03/17/25 08:29 Bumetanide 0.5 Mg Tablet PO 04/15/25 08:59 1 mg QDAY HEIKE Administration Carvedilol 12.5 mg 03/08/25 08:00 03/17/25 08:30 Carvedilol 12.5 Mg Tablet PO 04/07/25 07:59 12.5 mg BIDWM HEIKE Administration Guaifenesin 600 mg 03/10/25 09:00 03/17/25 08:32 Guaifenesin Er 600 Mg Tabcr PO 04/09/25 08:59 600 mg BID HEIKE Administration Melatonin 3 mg 03/15/25 21:00 03/16/25 21:02 Melatonin 3 Mg Tablet PO 04/14/25 20:59 3 mg HS HEIKE Administration Montelukast Sodium 10 mg 03/11/25 09:00 03/17/25 08:30 Montelukast Sodium 10 Mg Tablet PO 04/10/25 08:59 10 mg QDAY HEIKE Administration Ondansetron HCl 4 mg 03/07/25 19:55 Ondansetron Inj 2 Mg/Ml Inj 2 Ml IVP 04/06/25 19:54 Q6H PRN NAUSEA OR VOMITING Protocol Pantoprazole Sodium 40 mg 03/08/25 09:00 03/17/25 08:32 Pantoprazole 40 Mg Tablet PO 04/07/25 08:59 40 mg QDAY HEIKE Administration Sodium Chloride 1 gm 03/16/25 09:00 03/17/25 08:30 Sodium Chloride 1 Gm Tablet PO 04/15/25 08:59 1 gm BID HEIKE Administration Tamsulosin HCl 0.4 mg 03/15/25 16:00 03/17/25 08:32 Tamsulosin Hcl 0.4 Mg Capsule PO 04/14/25 15:59 0.4 mg QDAY HEIKE Administration Plan Patient is an 84-year-old female with a past medical history of CAD multi-vessel disease status post PCI LAD and RCA (2016), severe aortic stenosis, CHF HFpEF 65% (), chronic atrial fibrillation, history of hypertension, hyperlipidemia, gout history of CVA, interstitial fibrosis, interstitial lung with home oxygen 2 L, disease to the emergency room by EMS on 03/07/2025 with a chief complaint of syncopal episodes who was admitted for acute on chronic CHF exacerbation. #Acute on chronic congestive heart failure #CHF HFrEF EF 65% #Severe calcified aortic stenosis, 3.2 m/s #RSVP 56 mmHg #Pleural effusion status post thoracentesis (03/15/2025) Past medical history of congestive heart failure with sever aortic stenosis and pulmonary arterial hypertension. Patient may not be adherent to fluid restriction and salt restrictions. Patient would benefit from aortic valve replacement given severe aortic stenosis. Peak velocity of 3.2 m/s. Echo (02/10/2025)Aortic root appears mildly dilated.Aortic valve leaflets are heavy calcification appears to have severe calcific aortic stenosis opening appears with only 1 to 2 mm in both parasternal long axis view and apical views.Peak aortic velocity measured 3.2 m/s but was not parallel to the jet most likely Mr. Severe calcific aortic stenosis.Heavy mitral annulus calcification mitral valve thickening with evidence of mild to moderate 1-2+ mitral regurgitation.Normal-sized left ventricle with evidence of concentric left ventricle hypertrophy with normal left ventricle wall motion normal ejection fraction of 65%. RV is normal in size., right ventricle appears to be mildly dilated with RV dysfunction. The estimated right ventricular systolic pressure, 56 mmHg. RAP 15.There is significant biatrial enlargement. Moderate tricuspid regurgitation. current weight 71.2 kg, dry weight during previous discharge 61.008 BNP 704 TSH: not obtained Plan -Patient still continues to have significant edema and most of it is in the sacral area. BNP also is 584. Her dry weight also did not change much since admission. Patient's sodium is still 125 and is minimally confused. Heart failure mostly secondary to the severe aortic stenosis in the setting of HFpEF. Recommend aggressive diuresis for now with Bumex 1 mg IV twice daily and fluid restriction of at least 1.5 L/day. -Needs to be net -1 to 2 L/day. -Carvedilol 12.5 BID -K>4 and Mg >2 -SpO <90%, support PRN -Daily Weights, Strict Ins and Outs, Fluid Strictions (1500), Sodium Restriction 2 grams per day Regarding the severe aortic stenosis patient recommended to follow-up as outpatient with me for further evaluation of severe aortic stenosis but prior to that patient will need complete workup of her left lung pulmonary mass which is measured at close to 2 cm and appears spiculated raising a suspicion for cancer. Family does not want any kind of biopsy at the present point of time. Recommended to follow-up outpatient with oncology possible PET scan if needed. For now continue to treat the CHF exacerbation and afterload reduction. #Atrial fibrillation, rate controlled Past medical history of atrial fibrillation, rate controlled on carvedilol 12.5 mg BID and Eliquis 2.5 mg BID CHADSVAs 4 points Plan -Continue home medicating of Carvedilol and Eliquis -Monitor for signs of bleeding -K>4 and Mg >2 #CAD s/p PCI #Hyperlipidemia Given patient's past medical history of CAD s/p PCI continue patient would benefit from Aspirin and high intensity statins, age not being aplicable fo ACSVD. Lipid: Triglycerides 95, Choleterol 104, LDL 55, HDL 30 Plan -Continue home Atorvastin 40 mg HS, consider high intensivity of AST/ALTs permit -Asprin 81 mg qday #Hypertension Home medication of Benazepril Plan -continue home medication -Hold inf SBP <120 #Hypo-somolar Hypervolemic Hyponatremia Likely in the setting of congestive heart failure as patient appeared to be fluid overloaded upon admisison give urine sodium noted to 31, thus greater than >20 mEq of NA, which would place patient in renal failure, but this is unlikely given no failure noted. CT abdomen note dot have left kindy atrophic. Urine sodium likely off given use of diuretis. Hyponatremia likely in the setting of CHF vs Abdomen US noted for Cirrhosis. Na 125, Osmo 258 Sodium Deficit 495.8 mmol Plan -Per Nephrology -Water Restriction -Salt Tablet BID #Syncope On arrival patient complaing of syncopal event. Syncopal event likely secondary to acute on chronic chf exacerbation given pleural effusion noted once again as well as history of atrial fibrillation. CT head netative for acute hemorrhage or mass effect. L. and R. Carotid reported 0-10% stenosis. Plan -Treat undelrying, CHF exacerbation -consider orthostatic vitals -continue to monitor BP and heart rate. #CAP, likely GPC #Leukocytosis Bilateral pneumonia noted on chest x-ray Plan -Patient started Day 7 Ceftriaxone (03/10/2025) and azithromythin (03/10/2025) -MRSA Negative -Pleural Fluid No growthin, pending anaerobic #Macroytic Anemia Likely in the setting of of hydroxyurea treatment for polycythemia likely secondary to bone marrow supression. Previous Folate >24 (12/28/2022). Plan -consider B12 and Folate levels -Continue Folic Acid #Polycythemia Home medication of Hydroxyurea 1000 mg #Gout Allopurinol 300 mg #History of CVA 2017 #Pulmonary mass left midlung measures actually smaller, 19 mm, compared to 28 mm on February 02, 2025 Health Maintenance: Disp: Pt is currently admitted to floors for further management of CHF exacerbation and hyponatremia, cardiology following FEN: cardiac diet DVT: compression device Code: DNR - The patient's plan was discussed with attending Dr. Yves Trujillo MD PGY1 Internal Medicine Attending Provider Attestation/Addendum I have personally seen and examined the patient separately on the above date of service and discussed the plan of care with the resident. I reviewed the resident Dr. Allyssa Trujillo consultation progress note and agree with the resident findings and plan in the note above and have also edited the documentation to reflect my findings and plan. Patient still continues to have significant edema and most of it is in the sacral area. BNP also is 584. Her dry weight also did not change much since admission. Patient's sodium is still 125 and is minimally confused. Heart failure mostly secondary to the severe aortic stenosis in the setting of HFpEF. Recommend aggressive diuresis for now with Bumex 1 mg IV twice daily and fluid restriction of at least 1.5 L/day. Needs to be net -1 to 2 L/day. Strict input output, daily weights and 2 g sodium diet. Keep potassium greater than 4 and magnesium greater than 2.0 at all times. Regarding the severe aortic stenosis patient recommended to follow-up as outpatient with me for further evaluation of severe aortic stenosis but prior to that patient will need complete workup of her left lung pulmonary mass which is measured at close to 2 cm and appears spiculated raising a suspicion for cancer. Family does not want any kind of biopsy at the present point of time. Recommended to follow-up outpatient with oncology possible PET scan if needed. For now continue to treat the CHF exacerbation and afterload reduction. Management of rest of the medical conditions as per primary team and other consultants. Thank you for the consult and allowing me to participate in the care of the patient. Cardiology will continue to follow. Oumar Marinelli M.D. Interventional Cardiology
--- NOTE | 2025-03-17 14:18 | PD.RESDS ---
Planned Discharge Date 03/17/25 DS: Providers Provider Date of admission: 03/07/25 19:55 Primary care physician: Burak Hebert MD Admitting Provider: Derick Gamez MD Attending Provider on Admission: Saskia Castro MD Consults: 03/07/25 20:00 Consult to Cardiology Routine Comment: Consulting Provider: Tiffani Fountain 03/08/25 00:04 Referral [place] Routine Comment: 03/08/25 11:03 Referral Physical Therapy Routine Comment: Physician Instructions: 03/10/25 10:27 Referral Physical Therapy Routine Comment: Physician Instructions: 03/12/25 10:19 Referral Physical Therapy Routine Comment: Physician Instructions: 03/13/25 10:51 Consult to Nephrology Routine Comment: Consulting Provider: Jarrett Ni 03/15/25 09:50 Consult to Calendering Supervisor Routine Comment: US guided right thoracenthesis Consulting Provider: Nando Barrett I Attending Provider on DC: Ariana Hansen MD Discharging Provider: Ariana Hansen MD Hospital Course Hospital Course Hospital course: CC: swelling of legs Patient is an 84-year-old female with a past medical history of CAD multi-vessel disease status post PCI LAD and RCA (2017), severe aortic stenosis, CHF HFpEF 65% (), chronic atrial fibrillation, history of hypertension, hyperlipidemia, gout history of CVA, interstitial fibrosis, interstitial lung with home oxygen 2 L, disease to the emergency room by EMS on 03/07/2025 with a chief complaint of syncopal episodes and bilateral leg swelling and weakness. Patient was admitted overnight for syncope acute on chronic decompensated heart failure. Nephrology consulted for hyper-osmolar hypo-volemic hyponatremia. Cardiology consulted for CHF exacerbation. 03/17/2025: No overnight events reported. Patient examined at bedside. Patient complaining of a temporal headache. Patient denied chest pain or shortness of breath. Patient denied palpitations. Stated improved lower peripheral edema. Time Spent with Patient Time attestation: Total time spent providing and/or coordinating discharge services: Exam Vital Signs Temp Pulse Resp BP Pulse Ox O2 Del Method O2 Flow Rate 97.0 F 73 16 118/60 97 Room Air 3 03/17/25 12:00 03/17/25 13:29 03/17/25 12:00 03/17/25 12:03/17/25 12:00 03/17/25 12:00 03/17/25 08:00 Discharge Plan Plan Patient Disposition: Xfer Skilled Nsg Fac (SNF) Disposition Comment: [facility] Patient condition on transfer: Stable Care Plan Goals: Discharge recommendations: -Follow up with PCP within 1 week of discharge -Follow up with your Coarse Wire Drawer Dr. Fountain within 2-3 weeks of discharge -Follow up with your Honey Extractor Dr. Robison within 3-4 weeks of discharge Reynolds catheter instructions: -Patient will have Reynolds upon discharge due to bladder retention -Patient has been started on tamsulosin 0.4 mg qday to help with urination -On 03/21, perform bladder training on the patient for about 1 day by clamping for 1 hour, allowing the patient to void by unclamping, then increase clamp to 2 hours, then increase to 4 hours. Ask patient at each interval if they feel bladder fullness before unclamping to let void. Continue with 4 hour clamp intervals and after 24 hours total have passed, remove the Reynolds. Do not continue process more than 24 hours as this puts the patient at risk for UTIs and infections. The Reynolds should be removed by 03/22. -Reynolds can be removed earlier if there is any reason otherwise for removal -If patient continues to have urinary retention, have patient referred to a Urologist Hospital course: -Patient has completed a 1-week course of antibiotics for possible pneumonia -Patient has has a thoracentesis procedure with removal of about 1.7 L of fluid beneath the right lung -Please follow up with fluid cytology results from [facility] Pathology Medications: -Start taking salt tablets 1 g BID for low sodium level -Stop taking mirabegron as this can cause urinary retention -Continue rest of medications as previously prescribed -Return to the ED or call EMS if symptoms return and/or worsen Prescriptions/Referrals Prescriptions/Med Rec: New sodium chloride 1,000 mg tablet,soluble 1,000 mg PO QDAY Qty: 30 0RF Continued allopurinol 300 mg Tablet 300 mg PO QDAY alpha lipoic acid 600 mg Capsule 600 mg PO QDAY omeprazole 40 mg capsule,delayed release(DR/EC) 40 mg PO QDAY cetirizine 10 mg Tablet 10 mg PO QDAY folic acid 1 mg tablet 1 mg PO TID montelukast 10 mg tablet 10 mg PO QDAY benazepril 10 mg tablet 10 mg PO BID PRN (Reason: hypertension) Rx Instructions: sbp >145 cholecalciferol (vitamin D3) [Vitamin D3] 125 mcg (5,000 unit) Tablet 5,000 unit PO QDAY carvedilol 12.5 mg tablet 12.5 mg PO BID nitroglycerin 0.4 mg tablet, sublingual 0.4 mg BUCCAL Q5M PRN (Reason: Chest Pain) Patient Comments: 1 TABLET SUBLINGUAL EVERY 5 MINUTES NEEDED CHEST PAIN MAXIMUM OF 3 DOSES 30 DAYS Eliquis 2.5 mg tablet 2.5 mg PO BID hydroxyurea 500 mg capsule 1,000 mg PO HS guaifenesin 600 mg Tablet Extended Release 600 mg PO BID bumetanide 1 mg tablet 1 mg PO QDAY albuterol sulfate 90 mcg/actuation Hfa Aerosol Inhaler 1 inh INHALATION BID Breztri Aerosphere 160-9-4.8 mcg/actuation HFA aerosol inhaler 2 inh inhalation BID Discontinued mirabegron [Myrbetriq] 50 mg tablet extended release 24 hr 50 mg PO QDAY Referrals: Burak Hebert MD [Primary Care Provider] - Patient/Caregiver Discharge Instructions Discharge Activity: as per physical therapy, activity as tolerated and wear oxygen at all times Education Materials: Chest Lung Problems Dx, Reynolds Catheter Removal, Thoracentesis Dc, Aortic Stenosis, Pulmonary Fibrosis, ED Reynolds Catheter, Care, ED Pulmonary Nodule, Solitary Print Language: Belarusian Stand Alone Forms: [facility] Award Info., Patient Portal Info Letter Discharge Order Discharge Orders: Discharge (Routine); Ordered 03/17/25 Ordered By: Ariana Hansen
--- NOTE | 2025-03-17 15:16 | PC.SS ---
Addendum entered by Nohemi Jacobs 03/17/25 16:32: SS recieved call from [facility] who stated transportation ETA will be moved to 1730 due to being short staffed today. ENRIQUETA Ellison and AUGUSTA informed. SS received call from Patient's son Sammy who explained he was told patient was not being discharged due to a doctor tellling him patient's upper thigh and pelvic area is swollen. contacted Dr. Hansen to inform her of son's concern. Dr. Hansen stated patient to stay an additional night to due IV diuresing. [facility], patient's son Sammy, and ENRIQUETA Ellison informed of discharge cancellation. Addendum entered by Nohemi Jacobs 03/17/25 15:44: SS received call from patient's son Sammy, informed Sammy patient will be transporting to [facility] at [address]. Original Note: SS informed patient is ready for discharge, [facility] stated she can recieve patient today. [facility] contacted and transportation is scheduled for [address]. SS attempted to contact patient's son Sammy to inform of discharge, no answer. A message was left requesting a return call. AUGUSTA Corral and ENRIQUETA Ellison informed of ETA 1600 for transportation via [address].
[2025-03-17 16:04] LABS: B-Type Natriuretic Peptide 584 pg/mL (0-100)
--- NOTE | 2025-03-17 17:08 | ESPR_ITS ---
Documentation for date of: 03/17/25 Subjective Subjective Interval history: No acute events overnight.?Patient seen and examined at bedside this AM.?Patient feeling well. Labs and vitals were reviewed.?Sodium continues to be low at 125. Discussed with Nephrology team, could consider increasing the supplemental sodium. However, sodium may cause water retention. Must ensure fluid restriction. Patient was about to be discharged back to [facility], transport was set up. However Cardiology felt that patient was still fluid overloaded and not ready to discharge, given dependent edema, therefore repeat BNP was drawn and was 584. Cardiology felt that low sodium was due to fluid overload rather than from diuretic loss. Initiated IV Bumex again BID. Review of systems otherwise negative except what is mentioned above. Exam Vital Signs Temp Pulse Resp BP Pulse Ox O2 Del Method O2 Flow Rate 97.2 F 77 14 119/61 97 Nasal Cannula 3 03/17/25 16:00 03/17/25 16:45 03/17/25 16:00 03/17/25 16:00 03/17/25 16:00 03/17/25 16:00 03/17/25 16:00 Narrative Exam GENERAL: A&Ox3 . weak, frail, lethargic appearing, Not in acute distress NEURO: no focal neurological deficits noted HEENT: Atraumatic, Normocephalic. mucous membranes moist. Eyes open, symmetrical, & clear HEART: systolic murmur heard LUNGS: Clear to auscultation with no wheezing or crackles. ABDOMEN: soft, non-distended, non-tender, bowel sounds heard, no guarding or rebound tenderness SKIN: No Rash or ecchymoses EXTREMITIES: 1+ non pitting edema bilaterally in LE, no tenderness, able to move all 4 extremities, pedal pulses palpated Objective Labs 03/20/25 04:35 03/20/25 04:35 Labs: Laboratory Results - last 24 hr 03/17/25 08:44 WBC 17.4 H RBC 2.86 L Hgb 10.3 L Hct 29.5 L MCV 103 H MCH 36.0 H MCHC 34.9 RDW Std Deviation 59.8 H Plt Count 482 H Neut % (Auto) 91 H Lymph % (Auto) 3 L [place] % (Auto) 4 Eos % (Auto) 1 Baso % (Auto) 0 Neut # (Auto) 15.8 H Lymph # (Auto) 0.5 L [place] # (Auto) 0.6 Eos # (Auto) 0.2 Baso # (Auto) 0.0 Immature Gran # (Auto) 0.27 H Absolute Nucleated RBC 0.02 H Immature Gran % 2 H Nucleated RBC % 0 Sodium 125 L Potassium 4.2 Chloride 88 L Carbon Dioxide 28.0 Anion Gap 9 BUN 24 H Creatinine 0.8 Estim Creat Clear Calc 50.7 L eGFR > 60 BUN/Creatinine Ratio 30 H Glucose 149 H Calculated Osmolality 258 L Calcium 8.2 L Magnesium 1.8 B-Natriuretic Peptide 584 H* ABG Interpretation ABG results: 03/07/25 14:41 VBG pH 7.49 VBG pCO2 37 VBG pO2 43 VBG Base Excess 5 H Quality Measures Quality Measures none Advance care planning discussed with:: patient Assessment & Plan Assessment Current Active Medications: Generic Name Dose Route Start Last Admin Trade Name Freq PRN Reason Stop Dose Admin Acetaminophen 650 mg 03/08/25 09:19 03/13/25 16:09 Acetaminophen 325 Mg Tablet PO 04/06/25 19:54 650 mg Q6H PRN Administration pain(1-3) and Fever >100.4 Hydrocodone Bitart/Acetaminophen 1 tab 03/13/25 19:08 03/16/25 21:02 Hydrocodone/Apap 5/325 Tablet PO 03/18/25 19:07 1 tab Q6HR PRN Administration PAIN SCALE 4-10(Mod-Sev Albuterol/Ipratropium 3 ml 03/07/25 19:55 03/13/25 13:48 Albuterol/Ipratropium (Duoneb) Rt Luciana 3 Ml Nebu INH 04/06/25 22:59 3 ml Q4HRRT PRN Administration SOB or Wheezing Allopurinol 300 mg 03/11/25 09:00 03/17/25 08:32 Allopurinol 100 Mg Tablet PO 04/10/25 08:59 300 mg QDAY HEIKE Administration Apixaban 2.5 mg 03/15/25 21:00 03/17/25 08:30 Apixaban 2.5 Mg Tablet PO 04/14/25 20:59 2.5 mg BID HEIKE Administration Benzonatate 100 mg 03/09/25 21:57 03/12/25 13:58 Benzonatate 100 Mg Capsule PO 04/08/25 21:56 100 mg Q8HR PRN Administration COUGH Protocol Bumetanide 1 mg 03/17/25 21:00 Bumetanide Inj 0.25 Mg/Ml Vial 4 Ml IVP 04/16/25 20:59 BIDD HEIKE Carvedilol 12.5 mg 03/08/25 08:00 03/17/25 08:30 Carvedilol 12.5 Mg Tablet PO 04/07/25 07:59 12.5 mg BIDWM HEIKE Administration Guaifenesin 600 mg 03/10/25 09:00 03/17/25 08:32 Guaifenesin Er 600 Mg Tabcr PO 04/09/25 08:59 600 mg BID HEIKE Administration Melatonin 3 mg 03/15/25 21:00 03/16/25 21:02 Melatonin 3 Mg Tablet PO 04/14/25 20:59 3 mg HS HEIKE Administration Montelukast Sodium 10 mg 03/11/25 09:00 03/17/25 08:30 Montelukast Sodium 10 Mg Tablet PO 04/10/25 08:59 10 mg QDAY HEIKE Administration Ondansetron HCl 4 mg 03/07/25 19:55 Ondansetron Inj 2 Mg/Ml Inj 2 Ml IVP 04/06/25 19:54 Q6H PRN NAUSEA OR VOMITING Protocol Pantoprazole Sodium 40 mg 03/08/25 09:00 03/17/25 08:32 Pantoprazole 40 Mg Tablet PO 04/07/25 08:59 40 mg QDAY HEIKE Administration Sodium Chloride 1 gm 03/16/25 09:00 03/17/25 08:30 Sodium Chloride 1 Gm Tablet PO 04/15/25 08:59 1 gm BID HEIKE Administration Tamsulosin HCl 0.4 mg 03/15/25 16:00 03/17/25 08:32 Tamsulosin Hcl 0.4 Mg Capsule PO 04/14/25 15:59 0.4 mg QDAY HEIKE Administration Plan Ms. Mccormack is a 84-year-old female with a past medical history of severe aortic stenosis, CAD status post stents, HFpEF (65% EF on 01/2025), A-fib on Eliquis, CVA 2018, polycythemia vera, pulmonary fibrosis on 2 L home O2 (baseline SpO2 95%), hypertension, gout, chronic UTIs was admitted to the hospital on 03/07/2025 for syncopal episode likely in the setting of severe aortic stenosis and for acute decompensated heart failure exacerbation. #Acute on Chronic hypoxic respiratory failure 2/2 CAP +/- CHF exacerbation - improving #Community-acquired pneumonia #Pleural effusions, right s/p thoracenthesis #Pulmonary fibrosis - Baseline 02 requirement 2L NC, on admission requiring between 4L-5L - Patient Endorses productive cough, fevers, and shortness of breath - CXR: Bilateral Pneumonia with right pleural effusions -Pt is s/p thoracenthesis and 1.9L of plural fluid is removed on 03/15/25 -pleural fluid for cell count, protein, LDH transudative, gram stain/culture negative, and cytology pending Plan: -DuoNebs as needed -Continue Supplemental oxygen, wean as tolerated -Continue ceftriaxone 03/10- -Azithromycin on 03/10- 03/16 #Euvolemic hypoosmolar hyponatremia - most likely 2/2 to diuretics versus fluid overload - On admission: Sodium 129, serum osmolality 261 - Patient's diuretics increased to Bumex 1 mg twice daily - Urine electrolytes WNL - Nephrology consulted, appreciate recommendations - Plan: Nephrology following, continue salt tablets BID #Pulmonary mass #Pulmonary nodules - findings concerning for malignancy -chest x-rays reveals 19mm pulmonary mass which appears to be decreasing in size. -CT of chest wo contrast - Heart failure pattern with large right pleural effusion, Pulmonary mass spiculated margins left upper lobe , 6 mm pulmonary nodule right upper lobe, 3 mm pulmonary nodule left upper -US guided thoracenthesis with cell cytology ordered for -Per son, family and pt have decided to not undergo lung biopsy as pt is very frail and weak, will wait for cell cytology of the pleural fluid. #Urinary Retention -Pt has urinary retention evident on CT scan of abdomen and pelvis -Bladder scans Q4H showed urinary retention requiring straight cath multiple times a day daily. -On 03/15 trail of tamsulosin was ordered without improvement -Barrios cath is ordered, pt will be discharged on barrios and will need outpatient urology appointment #Syncopal episode- resolved #Acute decompensated heart failure exacerbation #HFpEF (65% EF on 01/2025) #severe aortic stenosis #Hx of CAD s/p stents #Hx A-fib (on Eliquis) Patient came in after having a syncopal episode today in the rehab center where she went to the bathroom. Patient does have a history of severe aortic stenosis seen on echo on previous admission on January and she was supposed to follow-up with cardiology for possible TAVR. Patient has not follow-up with cardiology for TAVR as per patient's son. Patient head CT was negative and EKG showed A-fib. CHADsVASc 5 -Continue Bumex 1 mg IV BID -Continue carvedilol 12.5 mg twice daily -Eliquis 2.5 mg twice daily -Strict ALEX's -Daily weights -Cardiac diet, dysphagia 3 chopped -Fluid restrictions at 1500 -Keep potassium magnesium above 4 and 2 respectively -Cardiology following, appreciate recommendations -Will continue to monitor #Hx of gout #Hx of chronic UTIs #Hx of CVA 2018 #Hx of hypertension #Hx of macrocytic anemia No active signs of bleeding and hemoglobin stable Blood pressure was mildly elevated on admission -Holding home benazepril due to normotension, Continue allopurionol Disposition: Patient originally admitted to telemetry for syncopal episode, pending further work-up of pleural effusions and pulmonary masses. Diet: Cardiac, 1800 ml and high protein ensure GI prophylaxis: protonix DVT prophylaxis: Eliquis Code:DNR/DNI Patient plan of care was discussed with the attending physician, Dr. Castro. Ariana Hansen, PGY-2 Attending Provider Attestation/Addendum 84-year-old female with multiple comorbidities including hypertension, atrial fibrillation on Eliquis, coronary artery disease status post stents, heart failure with preserved EF with EF 65%, severe aortic stenosis who is currently following up with outpatient cardiology for possible TAVR, pulmonary fibrosis on 2 L supplemental oxygen at home who presented status post syncopal episode with differential diagnoses including severe aortic stenosis versus decompensated heart failure. As of now, we are diuresing the patient with improvement in symptoms and for severe aortic stenosis cardiology has been consulted and appreciate their recommendations. Furthermore, patient also noted to have significant pleural effusion requiring thoracentesis and likely related to possible CHF exacerbation. As of now, patient's oxygen requirement is going down however continued to be fluid overloaded for which we will continue IV diuretic therapy. I reviewed above note and agree with findings and plans. I have also personally examined the patient with medicine team and went over assessment and plan with medical team including manager internet and resident physician.
[2025-03-17] MEDS: BUMETANIDE INJ 0.25 MG/ML VIAL 4 ML 1 MG IVP (21:22)
[2025-03-17] MEDS: MELATONIN 3 MG TABLET PO (21:22)
[2025-03-17] MEDS: HYDROcodone/APAP 5/325 TABLET 1 TAB PO (21:25)
--- NOTE | 2025-03-17 21:34 | PD.RESPRO ---
Documentation for date of: 03/17/25 Subjective Subjective Interval history: Shereen is a 84-year-old female with a past medical history of severe aortic stenosis, CAD status post stents, HFpEF (60-65% on 04/2023), A-fib on Eliquis, CVA 2018, polycythemia vera, pulmonary fibrosis on 2 L home O2 (baseline SpO2 95%), pulmonary mass, hypertension, gout, chronic UTIs who was admitted to [facility] on 03/07/2025 after a syncopal episode. It was noted that patient was recently discharged from hospital in January 2025 and was supposed to get cardiac catheterization and TAVR for aortic stenosis leading to her recurrent respiratory failure. She was recently admitted into rehab after her hospitalization and came again after her syncopal episode. She was taking her medicines as prescribed. 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 She does not want aggressive treatment at this time, and is agreeable to getting a thoracentesis, however does not want cardiac catheterization at this time. She endorses about 130 pound weight loss over the past 3 years (unsure if this is true). She says she was 3 years ago from her . She denies being on any SSRIs. She denies having history of low sodium. No other complaints this time. ED Course: Initially patient came in hypertensive and afebrile. Initial labs were remarkable for leukocytosis, low hemoglobin, hyponatremia, hypomagnesemia, and elevated BNP. Patient's imaging included chest x-ray which showed CHF pattern and some possible superimposed pneumonia of both lungs, but is more consistent with pulmonary edema. Additional imaging can have an x-ray which was significant only for arthritic changes, head CT which was unremarkable, and EKG which showed A-fib. 03/15/2025: Patient examined at bedside today. No acute overnight events. Patient reports he is ready for thoracentesis. Her sodium today is 126, potassium 4.3, chloride 88, bicarb 29, BUN/creatinine 22 and 0.7 respectively, glucose 113, white count 22, hemoglobin 11, urine output 1.7 L. Vitals are stable at this time 03/16/2025: Patient examined at bedside, reported improvement in swelling, s/p thoracentesis, noted improvement in serum sodium, sodium 127, potassium 4.2, BUN 21, creatinine 0.8, increase salt tabs to twice daily. Patient serum sodium has been stable, can continue with salt tabs, continue Bumex 1 mg p.o., nephrology will sign off of the patient, please do not hesitate to contact again if any further queries. 03/17/2025: Patient evaluated at the bedside reviewed, complaining of discomfort in her ankles. This a.m. serum sodium decreased to 125, patient is asymptomatic, mental status at baseline. I spoke to primary team, recommended increasing salt tabs to 3 times daily, patient is on a low-salt cardiac diet. Repeat labs in the a.m., will reassess tomorrow. Exam Vital Signs Temp Pulse Resp BP Pulse Ox O2 Del Method O2 Flow Rate 97.0 F 83 18 118/74 97 Nasal Cannula 3.5 03/17/25 20:00 03/17/25 21:22 03/17/25 20:00 03/17/25 21:22 03/17/25 20:00 03/17/25 20:00 03/17/25 20:00 Narrative Exam GENERAL: A&Ox3 . weak, frail, lethargic appearing, Not in acute distress NEURO: no focal neurological deficits noted HEENT: Atraumatic, Normocephalic. mucous membranes moist. Eyes open, symmetrical, & clear HEART: systolic murmur heard LUNGS: Clear to auscultation with no wheezing or crackles. ABDOMEN: soft, non-distended, non-tender, bowel sounds heard, no guarding or rebound tenderness SKIN: No Rash or ecchymoses EXTREMITIES: 1+ non pitting edema bilaterally in LE, no tenderness, able to move all 4 extremities, pedal pulses palpated Objective Labs 03/18/25 06:05 03/18/25 06:05 Labs: Laboratory Results - last 24 hr 03/17/25 08:44 WBC 17.4 H RBC 2.86 L Hgb 10.3 L Hct 29.5 L MCV 103 H MCH 36.0 H MCHC 34.9 RDW Std Deviation 59.8 H Plt Count 482 H Neut % (Auto) 91 H Lymph % (Auto) 3 L [place] % (Auto) 4 Eos % (Auto) 1 Baso % (Auto) 0 Neut # (Auto) 15.8 H Lymph # (Auto) 0.5 L [place] # (Auto) 0.6 Eos # (Auto) 0.2 Baso # (Auto) 0.0 Immature Gran # (Auto) 0.27 H Absolute Nucleated RBC 0.02 H Immature Gran % 2 H Nucleated RBC % 0 Sodium 125 L Potassium 4.2 Chloride 88 L Carbon Dioxide 28.0 Anion Gap 9 BUN 24 H Creatinine 0.8 Estim Creat Clear Calc 50.7 L eGFR > 60 BUN/Creatinine Ratio 30 H Glucose 149 H Calculated Osmolality 258 L Calcium 8.2 L Magnesium 1.8 B-Natriuretic Peptide 584 H* ABG Interpretation ABG results: 03/07/25 14:41 VBG pH 7.49 VBG pCO2 37 VBG pO2 43 VBG Base Excess 5 H Quality Measures Quality Measures none Advance care planning discussed with:: patient Assessment & Plan Assessment Current Active Medications: Generic Name Dose Route Start Last Admin Trade Name Freq PRN Reason Stop Dose Admin Acetaminophen 650 mg 03/08/25 09:19 03/13/25 16:09 Acetaminophen 325 Mg Tablet PO 04/06/25 19:54 650 mg Q6H PRN Administration pain(1-3) and Fever >100.4 Hydrocodone Bitart/Acetaminophen 1 tab 03/13/25 19:08 03/17/25 21:25 Hydrocodone/Apap 5/325 Tablet PO 03/18/25 19:07 1 tab Q6HR PRN Administration PAIN SCALE 4-10(Mod-Sev Albuterol/Ipratropium 3 ml 03/07/25 19:55 03/13/25 13:48 Albuterol/Ipratropium (Duoneb) Rt Luciana 3 Ml Nebu INH 04/06/25 22:59 3 ml Q4HRRT PRN Administration SOB or Wheezing Allopurinol 300 mg 03/11/25 09:00 03/17/25 08:32 Allopurinol 100 Mg Tablet PO 04/10/25 08:59 300 mg QDAY HEIKE Administration Apixaban 2.5 mg 03/15/25 21:00 03/17/25 21:22 Apixaban 2.5 Mg Tablet PO 04/14/25 20:59 2.5 mg BID HEIKE Administration Benzonatate 100 mg 03/09/25 21:57 03/12/25 13:58 Benzonatate 100 Mg Capsule PO 04/08/25 21:56 100 mg Q8HR PRN Administration COUGH Protocol Bumetanide 1 mg 03/17/25 21:00 03/17/25 21:22 Bumetanide Inj 0.25 Mg/Ml Vial 4 Ml IVP 04/16/25 20:59 1 mg BIDD HEIKE Administration Carvedilol 12.5 mg 03/08/25 08:00 03/17/25 17:38 Carvedilol 12.5 Mg Tablet PO 04/07/25 07:59 12.5 mg BIDWM HEIKE Administration Guaifenesin 600 mg 03/10/25 09:00 03/17/25 21:22 Guaifenesin Er 600 Mg Tabcr PO 04/09/25 08:59 600 mg BID HEIKE Administration Melatonin 3 mg 03/15/25 21:00 03/17/25 21:22 Melatonin 3 Mg Tablet PO 04/14/25 20:59 3 mg HS HEIKE Administration Montelukast Sodium 10 mg 03/11/25 09:00 03/17/25 08:30 Montelukast Sodium 10 Mg Tablet PO 04/10/25 08:59 10 mg QDAY HEIKE Administration Ondansetron HCl 4 mg 03/07/25 19:55 Ondansetron Inj 2 Mg/Ml Inj 2 Ml IVP 04/06/25 19:54 Q6H PRN NAUSEA OR VOMITING Protocol Pantoprazole Sodium 40 mg 03/08/25 09:00 03/17/25 08:32 Pantoprazole 40 Mg Tablet PO 04/07/25 08:59 40 mg QDAY HEIKE Administration Sodium Chloride 1 gm 03/16/25 09:00 03/17/25 21:22 Sodium Chloride 1 Gm Tablet PO 04/15/25 08:59 1 gm BID HEIKE Administration Tamsulosin HCl 0.4 mg 03/15/25 16:00 03/17/25 08:32 Tamsulosin Hcl 0.4 Mg Capsule PO 04/14/25 15:59 0.4 mg QDAY HEIKE Administration Plan Assessment Shereen is a 84-year-old female with a past medical history of severe aortic stenosis, CAD status post stents, HFpEF (60-65% on 04/2023), A-fib on Eliquis, CVA 2018, polycythemia vera, pulmonary fibrosis on 2 L home O2 (baseline SpO2 95%), pulmonary mass, hypertension, gout, chronic UTIs. #Hypoosmolar hypervolemic hyponatremia Urine sodium normal, urine chloride low, urine potassium normal This is usually unexpected with diuresis with Bumex There could be diuresis resistance or not enough diuretic or the timing of the urine was taken after Bumex was given Unlikely SIADH as patient's urine sodium is also low Hyponatremia likely related to heart failure and diuresis This could be a combination of water retention with RAAS and heart failure and also diuresis Plan: ? Continue CMP ? Free water restriction ? Continue with diuresis ? Daily weights ? Bumex 1 mg p.o. daily ? Salt tabs 1 g 3 times daily #Acute hypoxic respiratory failure #Community-acquired pneumonia #Pleural effusions, bilateral #Syncopal episode #Acute decompensated heart failure exacerbation #Hx of severe aortic stenosis #Hx of HFpEF (65% EF on 01/2025) #Hx of CAD s/p stents #Hx of A-fib (on Eliquis) #Pulmonary mass, left lung #Hx of polycythemia vera #Hx of pulmonary fibrosis on 2 L home O2 #Hx of gout #Hx of chronic UTIs #Hx of CVA 2017 #Hx of hypertension #Hx of macrocytic anemia Above handeled by primary hospitalist team Patient seen and care discussed with my attending physician, Dr. Last Carmona PGY2 Attending Provider Attestation/Addendum Patient seen and examined with resident physician Dr. Carmona. Note reviewed, agree with findings and recommendations. Patient currently seen in telemetry. Still having some shortness of breath. s/p thoracentesis. Edema improved. Sodium low-salt tablets increased to 2 times daily. 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 CHF with hyponatremia portends poor prognosis.
[2025-03-18] VITALS (14 sets, daily range): BP systolic 117–144; BP diastolic 49–89; PULSE 66–87; RESP 14–19; TEMP 36.1–36.6; O2SAT 95–100
--- NOTE | 2025-03-18 01:19 | PC.NURSE ---
MT reported that pt had a run of PVCs and bigeminy. Pt is lying down in bed and denies any chest pain, discomfort. Dr. Martinez was made aware. waiting for new orders for pt.
[2025-03-18] MEDS: Magnesium Sulfate 2 GM Ivpb 2 GM/50 ML BAG IV (01:41)
[2025-03-18] MEDS: BUMETANIDE INJ 0.25 MG/ML VIAL 4 ML 1 MG IVP ×3 (05:18→20:41)
[2025-03-18 06:32] LABS: Basophils % (Auto) 0 % (0-2.5); Eosinophils # (Auto) 0.2 Thou/mm3 (0.0-0.5); Eosinophils % (Auto) 1 % (0-10); Hematocrit 32.6 % (36.0-46.0); Immature Granulocytes % (Auto) 2 % (0-0); Immature Granulocytes Auto 0.35 Thou/mm3 (0.00-0.00); Lymphocytes # (Auto) 1.1 Thou/mm3 (1.0-4.8); Lymphocytes % (Auto) 6 % (10-50); Mean Corpuscular HGB Conc 33.7 g/dl (31.0-37.0); Mean Corpuscular Hemoglobin 36.4 pg (25.0-35.0); Mean Corpuscular Volume 108 fL (80-100); Monocytes # (Auto) 0.5 Thou/mm3 (0.0-0.8); Monocytes % (Auto) 3 % (0-12); Neutrophils # (Auto) 16.5 Thou/mm3 (1.8-7.7); Neutrophils % (Auto) 88 % (37-80); Nucleated Red Blood Cell % 0 /100 WBC (0); Platelet Count 473 Thou/mm3 (140-440); RDW Standard Deviation 62.7 fL (36.4-46.3); Red Blood Count 3.02 Miln/mm3 (4.00-5.20); White Blood Count 18.8 Thou/mm3 (3.6-11.0)
[2025-03-18 06:45] LABS: Anion Gap 8 (7-16); BUN/Creatinine Ratio 30 Ratio (12-20); Blood Urea Nitrogen 24 mg/dL (9-23); Calcium 8.2 mg/dL (8.3-10.6); Carbon Dioxide 30.2 mMol/L (20.0-31.0); Chloride 88 mMol/L (98-107); Creatinine (Component) 0.8 mg/dL (0.6-1.3); Estimated Creatinine Clearance 50.7 mL/min (>60); Glucose 130 mg/dL (74-106); Osmolality,Calculated 259 (275-295); Potassium 4.2 mMol/L (3.4-5.1); Sodium 126 mMol/L (136-145); eGFR > 60 See Note
--- NOTE | 2025-03-18 07:06 | XR_ITS ---
Examination: AP chest single view TECHNIQUE: AP portable upright chest single view Date and time: March 18, 2025 0718 hours Comparison March 15, 2025 INDICATIONS: Difficulty breathing this week. FINDINGS: Moderate CHF Mild to moderate enlargement cardiac contour. Prominent vascular congestion. Perihilar basilar edema. Consider superimposed pneumonia right base. Large right and moderate left pleural effusions Pulmonary mass in the left upper lobe Please see the CT chest report March 12, 2025 IMPRESSION: Moderate CHF Consider superimposed pneumonia right lung base
--- NOTE | 2025-03-18 07:32 | ESPR_ITS ---
Documentation for date of: 03/18/25 Subjective Subjective Interval history: Shereen is a 84-year-old female with a past medical history of severe aortic stenosis, CAD status post stents, HFpEF (60-65% on 04/2023), A-fib on Eliquis, CVA 2018, polycythemia vera, pulmonary fibrosis on 2 L home O2 (baseline SpO2 95%), pulmonary mass, hypertension, gout, chronic UTIs who was admitted to [facility] on 03/07/2025 after a syncopal episode. It was noted that patient was recently discharged from hospital in January 2025 and was supposed to get cardiac catheterization and TAVR for aortic stenosis leading to her recurrent respiratory failure. She was recently admitted into rehab after her hospitalization and came again after her syncopal episode. She was taking her medicines as prescribed. Her xerox machine operator is Dr. Fountain. She does not want aggressive treatment at this time, and is agreeable to getting a thoracentesis, however does not want cardiac catheterization at this time. She endorses about 130 pound weight loss over the past 3 years (unsure if this is true). She says she was 3 years ago from her . She denies being on any SSRIs. She denies having history of low sodium. No other complaints this time. ED Course: Initially patient came in hypertensive and afebrile. Initial labs were remarkable for leukocytosis, low hemoglobin, hyponatremia, hypomagnesemia, and elevated BNP. Patient's imaging included chest x-ray which showed CHF pattern and some possible superimposed pneumonia of both lungs, but is more consistent with pulmonary edema. Additional imaging can have an x-ray which was significant only for arthritic changes, head CT which was unremarkable, and EKG which showed A-fib. 03/15/2025: Patient examined at bedside today. No acute overnight events. Patient reports he is ready for thoracentesis. Her sodium today is 126, potassium 4.3, chloride 88, bicarb 29, BUN/creatinine 22 and 0.7 respectively, glucose 113, white count 22, hemoglobin 11, urine output 1.7 L. Vitals are stable at this time 03/16/2025: Patient examined at bedside, reported improvement in swelling, s/p thoracentesis, noted improvement in serum sodium, sodium 127, potassium 4.2, BUN 21, creatinine 0.8, increase salt tabs to twice daily. Patient serum sodium has been stable, can continue with salt tabs, continue Bumex 1 mg p.o., nephrology will sign off of the patient, please do not hesitate to contact again if any further queries. 03/17/2025: Patient evaluated at the bedside reviewed, complaining of discomfort in her ankles. This a.m. serum sodium decreased to 125, patient is asymptomatic, mental status at baseline. I spoke to primary team, recommended increasing salt tabs to 3 times daily, patient is on a low-salt cardiac diet. Repeat labs in the a.m., will reassess tomorrow. 03/18/2025 patient currently seen in medical floor. Resting comfortably. Sodium still low-gave salt tablets. Review of Systems Review of Systems Narrative Review of Systems: Denies any chest pain shortness of breath better. Does have gait imbalance. Exam Vital Signs Temp Pulse Resp BP Pulse Ox O2 Del Method O2 Flow Rate 36.1 C 82 19 134/89 H 97 Nasal Cannula 3.5 03/18/25 04:00 03/18/25 05:18 03/18/25 04:00 03/18/25 05:18 03/18/25 04:00 03/18/25 04:00 03/17/25 20:00 Narrative Exam GENERAL: A&Ox3 . weak, frail, lethargic appearing, Not in acute distress NEURO: no focal neurological deficits noted HEENT: Atraumatic, Normocephalic. mucous membranes moist. Eyes open, symmetrical, & clear HEART: systolic murmur heard LUNGS: Clear to auscultation with no wheezing or crackles. ABDOMEN: soft, non-distended, non-tender, bowel sounds heard, no guarding or rebound tenderness SKIN: No Rash or ecchymoses EXTREMITIES: 1+ non pitting edema bilaterally in LE, no tenderness, able to move all 4 extremities, pedal pulses palpated Objective Labs 03/21/25 05:23 03/21/25 05:23 Labs: Laboratory Results - last 24 hr 03/17/25 03/18/25 08:44 06:05 WBC 17.4 H 18.8 H RBC 2.86 L 3.02 L Hgb 10.3 L 11.0 L Hct 29.5 L 32.6 L MCV 103 H 108 H MCH 36.0 H 36.4 H MCHC 34.9 33.7 RDW Std Deviation 59.8 H 62.7 H Plt Count 482 H 473 H Neut % (Auto) 91 H 88 H Lymph % (Auto) 3 L 6 L [place] % (Auto) 4 3 Eos % (Auto) 1 1 Baso % (Auto) 0 0 Neut # (Auto) 15.8 H 16.5 H Lymph # (Auto) 0.5 L 1.1 [place] # (Auto) 0.6 0.5 Eos # (Auto) 0.2 0.2 Baso # (Auto) 0.0 0.0 Immature Gran # (Auto) 0.27 H 0.35 H Absolute Nucleated RBC 0.02 H 0.00 Immature Gran % 2 H 2 H Nucleated RBC % 0 0 Sodium 125 L 126 L Potassium 4.2 4.2 Chloride 88 L 88 L Carbon Dioxide 28.0 30.2 Anion Gap 9 8 BUN 24 H 24 H Creatinine 0.8 0.8 Estim Creat Clear Calc 50.7 L 50.7 L eGFR > 60 > 60 BUN/Creatinine Ratio 30 H 30 H Glucose 149 H 130 H Calculated Osmolality 258 L 259 L Calcium 8.2 L 8.2 L Magnesium 1.8 B-Natriuretic Peptide 584 H* ABG Interpretation ABG results: 03/07/25 14:41 VBG pH 7.49 VBG pCO2 37 VBG pO2 43 VBG Base Excess 5 H Assessment & Plan Additional Assessment & Plan Additional Plan: Shereen is a 84-year-old female with a past medical history of severe aortic stenosis, CAD status post stents, HFpEF (60-65% on 04/2023), A-fib on Eliquis, CVA 2018, polycythemia vera, pulmonary fibrosis on 2 L home O2 (baseline SpO2 95%), pulmonary mass, hypertension, gout, chronic UTIs. #Hypoosmolar hypervolemic hyponatremia Urine sodium normal, urine chloride low, urine potassium normal This is usually unexpected with diuresis with Bumex There could be diuresis resistance or not enough diuretic or the timing of the urine was taken after Bumex was given Unlikely SIADH as patient's urine sodium is also low Hyponatremia likely related to heart failure and diuresis This could be a combination of water retention with RAAS and heart failure and also diuresis Plan: ? Continue CMP ? Free water restriction ? Continue with diuresis ? Daily weights ? Bumex 1 mg p.o. daily ? Salt tabs 1 g 3 times daily #Acute hypoxic respiratory failure #Community-acquired pneumonia #Pleural effusions, bilateral #Syncopal episode #Acute decompensated heart failure exacerbation #Hx of severe aortic stenosis #Hx of HFpEF (65% EF on 01/2025) #Hx of CAD s/p stents #Hx of A-fib (on Eliquis) #Pulmonary mass, left lung #Hx of polycythemia vera #Hx of pulmonary fibrosis on 2 L home O2 #Hx of gout #Hx of chronic UTIs #Hx of CVA 2017 #Hx of hypertension #Hx of macrocytic anemia Above handeled by primary hospitalist team
[2025-03-18] MEDS: MONTELUKAST SODIUM 10 MG TABLET PO (08:12)
[2025-03-18] MEDS: Magnesium Sulfate 4 GM Ivpb 4 GM/50 ML BAG IV (08:12)
[2025-03-18] MEDS: carVEDILOL 12.5 MG TABLET PO ×2 (08:13→16:58)
[2025-03-18] MEDS: TAMSULOSIN HCL 0.4 MG CAPSULE PO (08:13)
[2025-03-18] MEDS: PANTOPRAZOLE 40 MG TABLET PO (08:13)
[2025-03-18] MEDS: APIXABAN 2.5 MG TABLET PO ×2 (08:13→20:39)
[2025-03-18] MEDS: SODIUM CHLORIDE 1 GM TABLET PO ×2 (08:13→20:39)
[2025-03-18] MEDS: allopurinoL 100 MG TABLET 300 MG PO (08:14)
--- NOTE | 2025-03-18 11:04 | PD.RESPRO ---
Documentation for date of: 03/18/25 Subjective Subjective Interval history: NO acute overnight events reported. Pt is seen and examined at bedside this morning. Pt appears to be comfortable, eating breakfast, saturating 95% on 3L oxygen. Pt continues to be tired. denies any chest pian, or palpitations, continues to have improvement in shortness of breath. Pt has discomfort in how LE, more prominent on right. Pt's right foot is in a brace and pillow for support under the ankles. total fluid balance is 1L, with total urine output of 1300ml . Labs are reviewed, WBC 18.8, sodium is 126. Bumex is increased to BID by the cardiology team, nephrology team wants to continue salt tabs BID. Will continue to monitor daily labs closely. Repeat CXR shows Large right and moderate left pleural effusions and Moderate CHF. Exam Vital Signs Temp Pulse Resp BP Pulse Ox O2 Del Method O2 Flow Rate 97.2 F 74 19 144/83 H 95 Nasal Cannula 3.5 03/18/25 08:00 03/18/25 08:13 03/18/25 08:00 03/18/25 08:13 03/18/25 08:00 03/18/25 08:00 03/17/25 20:00 Narrative Exam GENERAL: A&Ox3 . weak, frail, lethargic appearing, Not in acute distress NEURO: no focal neurological deficits noted HEENT: Atraumatic, Normocephalic. mucous membranes moist. Eyes open, symmetrical, & clear HEART: systolic murmur heard LUNGS: Clear to auscultation with no wheezing or crackles. ABDOMEN: soft, non-distended, non-tender, bowel sounds heard, no guarding or rebound tenderness SKIN: No Rash or ecchymoses EXTREMITIES: 1+ non pitting edema bilaterally in LE, tenderness bilaterally in LE , able to move all 4 extremities, pedal pulses palpated Objective Labs 03/20/25 04:35 03/20/25 04:35 Labs: Laboratory Results - last 24 hr 03/17/25 03/18/25 08:44 06:05 WBC 18.8 H RBC 3.02 L Hgb 11.0 L Hct 32.6 L MCV 108 H MCH 36.4 H MCHC 33.7 RDW Std Deviation 62.7 H Plt Count 473 H Neut % (Auto) 88 H Lymph % (Auto) 6 L [place] % (Auto) 3 Eos % (Auto) 1 Baso % (Auto) 0 Neut # (Auto) 16.5 H Lymph # (Auto) 1.1 [place] # (Auto) 0.5 Eos # (Auto) 0.2 Baso # (Auto) 0.0 Immature Gran # (Auto) 0.35 H Absolute Nucleated RBC 0.00 Immature Gran % 2 H Nucleated RBC % 0 Sodium 126 L Potassium 4.2 Chloride 88 L Carbon Dioxide 30.2 Anion Gap 8 BUN 24 H Creatinine 0.8 Estim Creat Clear Calc 50.7 L eGFR > 60 BUN/Creatinine Ratio 30 H Glucose 130 H Calculated Osmolality 259 L Calcium 8.2 L B-Natriuretic Peptide 584 H* ABG Interpretation ABG results: 03/07/25 14:41 VBG pH 7.49 VBG pCO2 37 VBG pO2 43 VBG Base Excess 5 H Quality Measures Quality Measures none Advance care planning discussed with:: patient and child (Son Sammy ) Assessment & Plan Assessment Current Active Medications: Generic Name Dose Route Start Last Admin Trade Name Freq PRN Reason Stop Dose Admin Acetaminophen 650 mg 03/08/25 09:19 03/13/25 16:09 Acetaminophen 325 Mg Tablet PO 04/06/25 19:54 650 mg Q6H PRN Administration pain(1-3) and Fever >100.4 Hydrocodone Bitart/Acetaminophen 1 tab 03/13/25 19:08 03/17/25 21:25 Hydrocodone/Apap 5/325 Tablet PO 03/18/25 19:07 1 tab Q6HR PRN Administration PAIN SCALE 4-10(Mod-Sev Albuterol/Ipratropium 3 ml 03/07/25 19:55 03/13/25 13:48 Albuterol/Ipratropium (Duoneb) Rt Luciana 3 Ml Nebu INH 04/06/25 22:59 3 ml Q4HRRT PRN Administration SOB or Wheezing Allopurinol 300 mg 03/11/25 09:00 03/18/25 08:14 Allopurinol 100 Mg Tablet PO 04/10/25 08:59 300 mg QDAY HEIKE Administration Apixaban 2.5 mg 03/15/25 21:00 03/18/25 08:13 Apixaban 2.5 Mg Tablet PO 04/14/25 20:59 2.5 mg BID HEIKE Administration Benzonatate 100 mg 03/09/25 21:57 03/12/25 13:58 Benzonatate 100 Mg Capsule PO 04/08/25 21:56 100 mg Q8HR PRN Administration COUGH Protocol Bumetanide 1 mg 03/17/25 21:00 03/18/25 05:18 Bumetanide Inj 0.25 Mg/Ml Vial 4 Ml IVP 04/16/25 20:59 1 mg BIDD HEIKE Administration Carvedilol 12.5 mg 03/08/25 08:00 03/18/25 08:13 Carvedilol 12.5 Mg Tablet PO 04/07/25 07:59 12.5 mg BIDWM HEIKE Administration Magnesium Sulfate 4 gm in 50 mls @ 12.5 mls/hr 03/18/25 07:47 03/18/25 08:12 Magnesium Sulfate Ivpb IV 03/18/25 11:46 12.5 mls/hr X1 ONE Administration Melatonin 3 mg 03/15/25 21:00 03/17/25 21:22 Melatonin 3 Mg Tablet PO 04/14/25 20:59 3 mg HS HEIKE Administration Montelukast Sodium 10 mg 03/11/25 09:00 03/18/25 08:12 Montelukast Sodium 10 Mg Tablet PO 04/10/25 08:59 10 mg QDAY HEIKE Administration Ondansetron HCl 4 mg 03/07/25 19:55 Ondansetron Inj 2 Mg/Ml Inj 2 Ml IVP 04/06/25 19:54 Q6H PRN NAUSEA OR VOMITING Protocol Pantoprazole Sodium 40 mg 03/08/25 09:00 03/18/25 08:13 Pantoprazole 40 Mg Tablet PO 04/07/25 08:59 40 mg QDAY HEIKE Administration Sodium Chloride 1 gm 03/16/25 09:00 03/18/25 08:13 Sodium Chloride 1 Gm Tablet PO 04/15/25 08:59 1 gm BID HEIKE Administration Tamsulosin HCl 0.4 mg 03/15/25 16:00 03/18/25 08:13 Tamsulosin Hcl 0.4 Mg Capsule PO 04/14/25 15:59 0.4 mg QDAY HEIKE Administration Plan Ms. Mccormack is a 84-year-old female with a past medical history of severe aortic stenosis, CAD status post stents, HFpEF (65% EF on 01/2025), A-fib on Eliquis, CVA 2018, polycythemia vera, pulmonary fibrosis on 2 L home O2 (baseline SpO2 95%), hypertension, gout, chronic UTIs was admitted to the hospital on 03/07/2025 for syncopal episode likely in the setting of severe aortic stenosis and for acute decompensated heart failure exacerbation. #Acute on Chronic hypoxic respiratory failure 2/2 CAP +/- CHF exacerbation - improving #Community-acquired pneumonia #Pleural effusions, right s/p thoracenthesis #Pulmonary fibrosis - Baseline 02 requirement 2L NC, on admission requiring between 4L-5L - Patient Endorses productive cough, fevers, and shortness of breath - CXR: Bilateral Pneumonia with right pleural effusions -Pt is s/p thoracenthesis and 1.9L of plural fluid is removed on 03/15/25 -pleural fluid for cell count, protein, LDH transudative, gram stain/culture negative, and cytology pending Plan: -DuoNebs as needed -Continue Supplemental oxygen, wean as tolerated -Azithromycin on 03/10- 03/16 -Continue ceftriaxone 03/10- #Hypoosmolar Hypervolemic hyponatremia - most likely 2/2 to diuretics versus fluid overload - On admission: Sodium 129, serum osmolality 261 - Patient's diuretics increased to Bumex 1 mg twice daily - Urine electrolytes WNL - Nephrology consulted, appreciate recommendations - Plan: Nephrology following, continue salt tablets BID #Pulmonary mass #Pulmonary nodules - findings concerning for malignancy -chest x-rays reveals 19mm pulmonary mass which appears to be decreasing in size. -CT of chest wo contrast - Heart failure pattern with large right pleural effusion, Pulmonary mass spiculated margins left upper lobe , 6 mm pulmonary nodule right upper lobe, 3 mm pulmonary nodule left upper -US guided thoracenthesis with cell cytology ordered -Per son, family and pt have decided to not undergo lung biopsy as pt is very frail and weak, will wait for cell cytology of the pleural fluid. #Urinary Retention -Pt has urinary retention evident on CT scan of abdomen and pelvis -Bladder scans Q4H showed urinary retention requiring straight cath multiple times a day daily. -On 03/15 trail of tamsulosin was ordered without improvement -Barrios cath is ordered, pt will be discharged on barrios and will need outpatient urology appointment #Syncopal episode- resolved #Acute decompensated heart failure exacerbation #HFpEF (65% EF on 01/2025) #severe aortic stenosis #Hx of CAD s/p stents #Hx A-fib (on Eliquis) Patient came in after having a syncopal episode today in the rehab center where she went to the bathroom. Patient does have a history of severe aortic stenosis seen on echo on previous admission on January and she was supposed to follow-up with cardiology for possible TAVR. Patient has not follow-up with cardiology for TAVR as per patient's son. Patient head CT was negative and EKG showed A-fib. CHADsVASc 5 -Continue Bumex 1 mg IV BID -Continue carvedilol 12.5 mg twice daily -Eliquis 2.5 mg twice daily -Strict ALEX's -Daily weights -Cardiac diet, dysphagia 3 chopped -Fluid restrictions at 1500 -Keep potassium magnesium above 4 and 2 respectively -Cardiology following, appreciate recommendations -Will continue to monitor #Primary Hypertension -Holding home benazepril due to normotension -Pt is on Coreg 12.5mg BID, SARAH is stable with systolic < 150, will continue to monitor closely and will add another agent if pt become hypertensive #Hx of Gout -Resumed home allopurinol #Macrocytic anemia -Hgb 11.0, Hct 32.6, MCV 108 No active signs of bleeding and hemoglobin stable #Hx of CVA 2018 -no residual deficit Disposition: Patient originally admitted to telemetry for syncopal episode, currently in AHRF 2/2 CHF exacerbation and bilateral pleural effusions Diet: Cardiac, 1800 ml and high protein ensure GI prophylaxis: protonix DVT prophylaxis: Eliquis Code:DNR/DNI Assessment and plan discussed with my attending physician Dr. Matthew Ladd ([id number])- Internal medicine resident Attending Provider Attestation/Addendum 84-year-old female with multiple comorbidities including hypertension, atrial fibrillation on Eliquis, coronary artery disease status post stents, heart failure with preserved EF with EF 65%, severe aortic stenosis who is currently following up with outpatient cardiology for possible TAVR, pulmonary fibrosis on 2 L supplemental oxygen at home who presented status post syncopal episode with differential diagnoses including severe aortic stenosis versus decompensated heart failure. As of now, we are diuresing the patient with improvement in symptoms and for severe aortic stenosis cardiology has been consulted and appreciate their recommendations. Furthermore, patient also noted to have significant pleural effusion requiring thoracentesis and likely related to possible CHF exacerbation. As of now, patient's oxygen requirement is going down however continued to be fluid overloaded for which we will continue IV diuretic therapy. Overnight, obtain an x-ray however Noted to have reaccumulationof pleural effusion requiring thoracenthesis. I reviewed above note and agree with findings and plans. I have also personally examined the patient with medicine team and went over assessment and plan with medical team including director internal audit and resident physician.
--- NOTE | 2025-03-18 13:29 | ESPR_ITS ---
Documentation for date of: 03/18/25 Subjective Subjective Interval history: Patient is an 84-year-old female with a past medical history of CAD multi-vessel disease status post PCI LAD and RCA (2017), severe aortic stenosis, CHF HFpEF 65% (), chronic atrial fibrillation, history of hypertension, hyperlipidemia, gout history of CVA, interstitial fibrosis, interstitial lung with home oxygen 2 L, disease to the emergency room by EMS on 03/07/2025 with a chief complaint of syncopal episodes and bilateral leg swelling and weakness. Patient was admitted overnight for syncope acute on chronic decompensated heart failure. Nephrology consulted for hyper-osmolar hypo-volemic hyponatremia. Cardiology consulted for CHF exacerbation. 03/17/2025: No overnight events reported. Patient examined at bedside. Patient complaining of a temporal headache. Patient denied chest pain or shortness of breath. Patient denied palpitations. Patient still continues to have significant edema and most of it is in the sacral area. BNP also is 584. Her dry weight also did not change much since admission. Patient's sodium is still 125 and is minimally confused. Heart failure mostly secondary to the severe aortic stenosis in the setting of HFpEF. Recommend aggressive diuresis for now with Bumex 1 mg IV twice daily and fluid restriction of at least 1.5 L/day. Needs to be net -1 to 2 L/day. 03/18/2025: Patient examined at bedside this morning. Patient stated she felt fluids was inside her lungs with some dyspnea. Per chart review, repeat chest x- ray obtained with left pleural effusion noted with possible superimpsed right base pneumonia. Continue diuresis. Upper thigh edema still noted. In and Outs: 2300/1300/+1000 Cumulative balance 9485 Exam Vital Signs Temp Pulse Resp BP Pulse Ox O2 Del Method O2 Flow Rate 97.4 F 76 18 123/63 96 Nasal Cannula 3 03/18/25 12:00 03/18/25 13:10 03/18/25 13:10 03/18/25 12:00 03/18/25 13:10 03/18/25 12:00 03/18/25 13:10 Narrative Exam General Appearance: Alert & Oriented X3, thin female who is lying in bed in no acute distress HEENT: Skull symmetrical and atraumatic. Conjunctivae pale pink and moist. Pupils equal, round, reactive to light and accommodation (PERRL). Cardio: Normal Rate and irregular rhythm with S1 and S2 heart sounds. Systolic Murmur noted. No bruits on carotid auscultation. Trace peripheral edema. Lungs: Symmetric with equal expansion. Chest and back non-tender. Breath sound with mild crackles noted this morning. Abdomen: Non-tender, Non-distended, Normal Reactive Bowel Sounds Neuro: Alert, cooperative, oriented to person, place, and time. Speech clear. CN grossly intact. Upper motor strength 5/5 and Lower motor strength 3/5. Sensation intact. Objective Labs 03/18/25 06:05 03/18/25 06:05 Labs: Laboratory Results - last 24 hr 03/17/25 03/18/25 08:44 06:05 WBC 18.8 H RBC 3.02 L Hgb 11.0 L Hct 32.6 L MCV 108 H MCH 36.4 H MCHC 33.7 RDW Std Deviation 62.7 H Plt Count 473 H Neut % (Auto) 88 H Lymph % (Auto) 6 L [place] % (Auto) 3 Eos % (Auto) 1 Baso % (Auto) 0 Neut # (Auto) 16.5 H Lymph # (Auto) 1.1 [place] # (Auto) 0.5 Eos # (Auto) 0.2 Baso # (Auto) 0.0 Immature Gran # (Auto) 0.35 H Absolute Nucleated RBC 0.00 Immature Gran % 2 H Nucleated RBC % 0 Sodium 126 L Potassium 4.2 Chloride 88 L Carbon Dioxide 30.2 Anion Gap 8 BUN 24 H Creatinine 0.8 Estim Creat Clear Calc 50.7 L eGFR > 60 BUN/Creatinine Ratio 30 H Glucose 130 H Calculated Osmolality 259 L Calcium 8.2 L B-Natriuretic Peptide 584 H* ABG Interpretation ABG results: 03/07/25 14:41 VBG pH 7.49 VBG pCO2 37 VBG pO2 43 VBG Base Excess 5 H Quality Measures Quality Measures none Advance care planning discussed with:: patient Assessment & Plan Assessment Current Active Medications: Generic Name Dose Route Start Last Admin Trade Name Freq PRN Reason Stop Dose Admin Acetaminophen 650 mg 03/08/25 09:19 03/13/25 16:09 Acetaminophen 325 Mg Tablet PO 04/06/25 19:54 650 mg Q6H PRN Administration pain(1-3) and Fever >100.4 Hydrocodone Bitart/Acetaminophen 1 tab 03/13/25 19:08 03/17/25 21:25 Hydrocodone/Apap 5/325 Tablet PO 03/18/25 19:07 1 tab Q6HR PRN Administration PAIN SCALE 4-10(Mod-Sev Albuterol/Ipratropium 3 ml 03/07/25 19:55 03/13/25 13:48 Albuterol/Ipratropium (Duoneb) Rt Luciana 3 Ml Nebu INH 04/06/25 22:59 3 ml Q4HRRT PRN Administration SOB or Wheezing Allopurinol 300 mg 03/11/25 09:00 03/18/25 08:14 Allopurinol 100 Mg Tablet PO 04/10/25 08:59 300 mg QDAY HEIKE Administration Apixaban 2.5 mg 03/15/25 21:00 03/18/25 08:13 Apixaban 2.5 Mg Tablet PO 04/14/25 20:59 2.5 mg BID HEIKE Administration Benzonatate 100 mg 03/09/25 21:57 03/12/25 13:58 Benzonatate 100 Mg Capsule PO 04/08/25 21:56 100 mg Q8HR PRN Administration COUGH Protocol Bumetanide 1 mg 03/17/25 21:00 03/18/25 05:18 Bumetanide Inj 0.25 Mg/Ml Vial 4 Ml IVP 04/16/25 20:59 1 mg BIDD HEIKE Administration Carvedilol 12.5 mg 03/08/25 08:00 03/18/25 08:13 Carvedilol 12.5 Mg Tablet PO 04/07/25 07:59 12.5 mg BIDWM HEIKE Administration Melatonin 3 mg 03/15/25 21:00 03/17/25 21:22 Melatonin 3 Mg Tablet PO 04/14/25 20:59 3 mg HS HEIKE Administration Montelukast Sodium 10 mg 03/11/25 09:00 03/18/25 08:12 Montelukast Sodium 10 Mg Tablet PO 04/10/25 08:59 10 mg QDAY HEIKE Administration Ondansetron HCl 4 mg 03/07/25 19:55 Ondansetron Inj 2 Mg/Ml Inj 2 Ml IVP 04/06/25 19:54 Q6H PRN NAUSEA OR VOMITING Protocol Pantoprazole Sodium 40 mg 03/08/25 09:00 03/18/25 08:13 Pantoprazole 40 Mg Tablet PO 04/07/25 08:59 40 mg QDAY HEIKE Administration Sodium Chloride 1 gm 03/16/25 09:00 03/18/25 08:13 Sodium Chloride 1 Gm Tablet PO 04/15/25 08:59 1 gm BID HEIKE Administration Tamsulosin HCl 0.4 mg 03/15/25 16:00 03/18/25 08:13 Tamsulosin Hcl 0.4 Mg Capsule PO 04/14/25 15:59 0.4 mg QDAY HEIKE Administration Plan Patient is an 84-year-old female with a past medical history of CAD multi-vessel disease status post PCI LAD and RCA (2016), severe aortic stenosis, CHF HFpEF 65% (), chronic atrial fibrillation, history of hypertension, hyperlipidemia, gout history of CVA, interstitial fibrosis, interstitial lung with home oxygen 2 L, disease to the emergency room by EMS on 03/07/2025 with a chief complaint of syncopal episodes who was admitted for acute on chronic CHF exacerbation. #Acute on chronic congestive heart failure #CHF HFrEF EF 65% #Severe calcified aortic stenosis, 3.2 m/s #RSVP 56 mmHg #Pleural effusion status post thoracentesis (03/15/2025) Past medical history of congestive heart failure with sever aortic stenosis and pulmonary arterial hypertension. Patient may not be adherent to fluid restriction and salt restrictions. Patient would benefit from aortic valve replacement given severe aortic stenosis. Peak velocity of 3.2 m/s. Cxr (03/18/2025): Mild to moderate enlargment of cardiac contour Prominent vascular congestion, perihilar basilar edema, consider superimposed pneumonia or right base. Large right and moderate left pleural effusion. Echo (02/10/2025)Aortic root appears mildly dilated.Aortic valve leaflets are heavy calcification appears to have severe calcific aortic stenosis opening appears with only 1 to 2 mm in both parasternal long axis view and apical views.Peak aortic velocity measured 3.2 m/s but was not parallel to the jet most likely Mr. Severe calcific aortic stenosis.Heavy mitral annulus calcification mitral valve thickening with evidence of mild to moderate 1-2+ mitral regurgitation.Normal-sized left ventricle with evidence of concentric left ventricle hypertrophy with normal left ventricle wall motion normal ejection fraction of 65%. RV is normal in size., right ventricle appears to be mildly dilated with RV dysfunction. The estimated right ventricular systolic pressure, 56 mmHg. RAP 15.There is significant biatrial enlargement. Moderate tricuspid regurgitation. current weight 71.2 kg, dry weight during previous discharge 61.008 BNP 704 TSH: not obtained In and Outs: 2300/1300/+1000 Cumulative balance 9485 Plan -Bumex 1 mg IV BID -Patient still continues to have significant edema and most of it is in the sacral area. BNP also is 584. Her dry weight also did not change much since admission. Patient's sodium is still 125 and is minimally confused. Heart failure mostly secondary to the severe aortic stenosis in the setting of HFpEF. Recommend aggressive diuresis for now with Bumex 1 mg IV twice daily and fluid restriction of at least 1.5 L/day. -Needs to be net -1 to 2 L/day. -Carvedilol 12.5 BID -K>4 and Mg >2 -SpO <90%, support PRN -Daily Weights, Strict Ins and Outs, Fluid Strictions (1500), Sodium Restriction 2 grams per day #Severe Aortic Stenosis Regarding the severe aortic stenosis patient recommended to follow-up as outpatient with me for further evaluation of severe aortic stenosis but prior to that patient will need complete workup of her left lung pulmonary mass which is measured at close to 2 cm and appears spiculated raising a suspicion for cancer. Family does not want any kind of biopsy at the present point of time. Recommended to follow-up outpatient with oncology possible PET scan if needed. For now continue to treat the CHF exacerbation and afterload reduction. #Atrial fibrillation, rate controlled Past medical history of atrial fibrillation, rate controlled on carvedilol 12.5 mg BID and Eliquis 2.5 mg BID CHADSVAs 4 points Plan -Continue home medicating of Carvedilol and Eliquis -Monitor for signs of bleeding -K>4 and Mg >2 #CAD s/p PCI #Hyperlipidemia Given patient's past medical history of CAD s/p PCI continue patient would benefit from Aspirin and high intensity statins, age not being aplicable fo ACSVD. Lipid: Triglycerides 95, Choleterol 104, LDL 55, HDL 30 Plan -Continue home Atorvastin 40 mg HS, consider high intensivity of AST/ALTs permit -Asprin 81 mg qday #Hypertension Home medication of Benazepril Plan -continue home medication -Hold inf SBP <120 #Hypo-somolar Hypervolemic Hyponatremia Likely in the setting of congestive heart failure as patient appeared to be fluid overloaded upon admisison give urine sodium noted to 31, thus greater than >20 mEq of NA, which would place patient in renal failure, but this is unlikely given no failure noted. CT abdomen note dot have left kindy atrophic. Urine sodium likely off given use of diuretis. Hyponatremia likely in the setting of CHF vs Abdomen US noted for Cirrhosis. Na 125, Osmo 258 -->126 (03/18/2025) Sodium Deficit 495.8 mmol Plan -Per Nephrology -Water Restriction -Salt Tablet BID #Syncope On arrival patient complaing of syncopal event. Syncopal event likely secondary to acute on chronic chf exacerbation given pleural effusion noted once again as well as history of atrial fibrillation. CT head netative for acute hemorrhage or mass effect. L. and R. Carotid reported 0-10% stenosis. Plan -Treat undelrying, CHF exacerbation -consider orthostatic vitals -continue to monitor BP and heart rate. #CAP, likely GPC #Leukocytosis Bilateral pneumonia noted on chest x-ray Cxr (03/18/2025): Mild to moderate enlargment of cardiac contour Prominent vascular congestion, perihilar basilar edema, consider superimposed pneumonia or right base. Large right and moderate left pleural effusion. Plan -Ceftriaxone (03/10/2025-03/18/2025) and azithromythin (03/10/2025) -MRSA Negative -Pleural Fluid No growthin, pending anaerobic #Macroytic Anemia Likely in the setting of of hydroxyurea treatment for polycythemia likely secondary to bone marrow supression. Previous Folate >24 (12/28/2022). Plan -consider B12 and Folate levels -Continue Folic Acid #Polycythemia Home medication of Hydroxyurea 1000 mg #Gout Allopurinol 300 mg #History of CVA 2018 #Pulmonary mass left midlung measures actually smaller, 19 mm, compared to 28 mm on February 02, 2025 Health Maintenance: Disp: Pt is currently admitted to floors for further management of CHF exacerbation and hyponatremia, cardiology following FEN: cardiac diet DVT: compression device Code: DNR - The patient's plan was discussed with attending Dr. Yves Trujillo MD PGY1 Internal Medicine Attending Provider Attestation/Addendum I have personally seen and examined the patient separately on the above date of service and discussed the plan of care with the resident. I reviewed the resident Dr. Allyssa Trujillo consultation progress note and agree with the resident findings and plan in the note above and have also edited the documentation to reflect my findings and plan. Patient still continues to have significant edema and most of it is in the sacral area. BNP also is 584. Her dry weight also did not change much since admission. Patient's sodium is still 125 and is minimally confused. Heart failure mostly secondary to the severe aortic stenosis in the setting of HFpEF. Recommend aggressive diuresis for now with Bumex 1 mg IV twice daily and fluid restriction of at least 1.5 L/day. Needs to be net -1 to 2 L/day. Strict input output, daily weights and 2 g sodium diet. Keep potassium greater than 4 and magnesium greater than 2.0 at all times. 03/18/2025-patient still continues to be fluid overloaded, complaining of shortness of breath and is net positive as per the input output chart. Repeat chest x-ray was performed today and showed worsening pleural effusions along with vascular congestion. Give additional Bumex 1 mg this evening and monitor the input output and again recommend to keep the intake to 1500 mL. Will monitor the and function along with input output tomorrow morning and increase Bumex if needed. Regarding the severe aortic stenosis patient recommended to follow-up as outpatient with me for further evaluation of severe aortic stenosis but prior to that patient will need complete workup of her left lung pulmonary mass which is measured at close to 2 cm and appears spiculated raising a suspicion for cancer. Family does not want any kind of biopsy at the present point of time. Recommended to follow-up outpatient with oncology possible PET scan if needed. For now continue to treat the CHF exacerbation and afterload reduction. Management of rest of the medical conditions as per primary team and other consultants. Thank you for the consult and allowing me to participate in the care of the patient. Cardiology will continue to follow. Oumar Marinelli M.D. Interventional Cardiology
[2025-03-18] MEDS: MELATONIN 3 MG TABLET PO (20:39)
[2025-03-18] MEDS: HYDROcodone/APAP 5/325 TABLET 1 TAB PO (20:40)
[2025-03-19] VITALS (15 sets, daily range): BP systolic 102–149; BP diastolic 55–75; PULSE 68–97; RESP 14–18; TEMP 36.1–36.2; O2SAT 90–100; BMI 26.3
[2025-03-19] MEDS: BUMETANIDE INJ 0.25 MG/ML VIAL 4 ML 1 MG IVP ×2 (05:47→11:28)
[2025-03-19 05:55] LABS: Basophils # (Auto) 0.1 Thou/mm3 (0.0-0.2); Basophils % (Auto) 0 % (0-2.5); Eosinophils # (Auto) 0.2 Thou/mm3 (0.0-0.5); Eosinophils % (Auto) 1 % (0-10); Hematocrit 30.6 % (36.0-46.0); Hemoglobin 10.4 g/dL (12.0-16.0); Immature Granulocytes % (Auto) 2 % (0-0); Immature Granulocytes Auto 0.35 Thou/mm3 (0.00-0.00); Lymphocytes % (Auto) 6 % (10-50); Mean Corpuscular Hemoglobin 36.2 pg (25.0-35.0); Mean Corpuscular Volume 107 fL (80-100); Monocytes # (Auto) 0.5 Thou/mm3 (0.0-0.8); Monocytes % (Auto) 3 % (0-12); Neutrophils # (Auto) 16.4 Thou/mm3 (1.8-7.7); Neutrophils % (Auto) 89 % (37-80); Nucleated Red Blood Cell # 0.02 Thou/mm3 (0.00-0.00); Nucleated Red Blood Cell % 0 /100 WBC (0); Platelet Count 513 Thou/mm3 (140-440); RDW Standard Deviation 60.7 fL (36.4-46.3); Red Blood Count 2.87 Miln/mm3 (4.00-5.20); White Blood Count 18.5 Thou/mm3 (3.6-11.0)
[2025-03-19 06:19] LABS: Anion Gap 7 (7-16); BUN/Creatinine Ratio 37 Ratio (12-20); Blood Urea Nitrogen 26 mg/dL (9-23); Calcium 8.2 mg/dL (8.3-10.6); Carbon Dioxide 30.3 mMol/L (20.0-31.0); Chloride 89 mMol/L (98-107); Creatinine (Component) 0.7 mg/dL (0.6-1.3); Estimated Creatinine Clearance 58.1 mL/min (>60); Glucose 107 mg/dL (74-106); Magnesium 1.6 mg/dL (1.6-2.6); Osmolality,Calculated 258 (275-295); Potassium 4.1 mMol/L (3.4-5.1); Sodium 126 mMol/L (136-145); eGFR > 60 See Note
[2025-03-19] MEDS: allopurinoL 100 MG TABLET 300 MG PO (09:41)
[2025-03-19] MEDS: MONTELUKAST SODIUM 10 MG TABLET PO (09:41)
[2025-03-19] MEDS: TAMSULOSIN HCL 0.4 MG CAPSULE PO (09:41)
[2025-03-19] MEDS: carVEDILOL 12.5 MG TABLET PO ×2 (09:42→16:37)
[2025-03-19] MEDS: SODIUM CHLORIDE 1 GM TABLET PO ×2 (09:42→20:35)
[2025-03-19] MEDS: APIXABAN 2.5 MG TABLET PO (09:42)
[2025-03-19] MEDS: PANTOPRAZOLE 40 MG TABLET PO (09:42)
--- NOTE | 2025-03-19 09:49 | ESPR_ITS ---
Documentation for date of: 03/19/25 Subjective Subjective Interval history: Patient is an 84-year-old female with a past medical history of CAD multi-vessel disease status post PCI LAD and RCA (2017), severe aortic stenosis, CHF HFpEF 65% (), chronic atrial fibrillation, history of hypertension, hyperlipidemia, gout history of CVA, interstitial fibrosis, interstitial lung with home oxygen 2 L, disease to the emergency room by EMS on 03/07/2025 with a chief complaint of syncopal episodes and bilateral leg swelling and weakness. Patient was admitted overnight for syncope acute on chronic decompensated heart failure. Nephrology consulted for hyper-osmolar hypo-volemic hyponatremia. Cardiology consulted for CHF exacerbation. 03/17/2025: No overnight events reported. Patient examined at bedside. Patient complaining of a temporal headache. Patient denied chest pain or shortness of breath. Patient denied palpitations. Patient still continues to have significant edema and most of it is in the sacral area. BNP also is 584. Her dry weight also did not change much since admission. Patient's sodium is still 125 and is minimally confused. Heart failure mostly secondary to the severe aortic stenosis in the setting of HFpEF. Recommend aggressive diuresis for now with Bumex 1 mg IV twice daily and fluid restriction of at least 1.5 L/day. Needs to be net -1 to 2 L/day. 03/18/2025: Patient examined at bedside this morning. Patient stated she felt fluids was inside her lungs with some dyspnea. Per chart review, repeat chest x- ray obtained with left pleural effusion noted with possible superimpsed right base pneumonia. Continue diuresis. Upper thigh edema still noted. In and Outs: 2300/1300/+1000 Cumulative balance 9485 03/19/2025: Patient examined at bedside. Patient denied chest pain or palpitations. Patient saturating well on 2 liters of oxygen. Patient is scheduled for thoracentesis. Eliquis now on hold. Additional dose of bumex 1 mg IV X 1 given and Bumex 2 mg IV BID. Continue to monitor kidney function. Exam Vital Signs Temp Pulse Resp BP Pulse Ox O2 Del Method O2 Flow Rate 97.1 F 76 16 149/75 H 98 Nasal Cannula 3 03/19/25 07:52 03/19/25 09:42 03/19/25 07:52 03/19/25 09:42 03/19/25 07:52 03/19/25 07:52 03/19/25 07:52 Narrative Exam General Appearance: Alert & Oriented X3, thin female who is lying in bed in no acute distress HEENT: Skull symmetrical and atraumatic. Conjunctivae pale pink and moist. Pupils equal, round, reactive to light and accommodation (PERRL). Cardio: Normal Rate and irregular rhythm with S1 and S2 heart sounds. Systolic Murmur noted. No bruits on carotid auscultation. Trace peripheral edema. Lungs: Symmetric with equal expansion. Chest and back non-tender. Breath sound with mild crackles noted this morning. Abdomen: Non-tender, Non-distended, Normal Reactive Bowel Sounds Neuro: Alert, cooperative, oriented to person, place, and time. Speech clear. CN grossly intact. Upper motor strength 5/5 and Lower motor strength 3/5. Sensation intact. Objective Labs 03/23/25 04:58 03/23/25 04:58 Labs: Laboratory Results - last 24 hr 03/19/25 05:13 WBC 18.5 H RBC 2.87 L Hgb 10.4 L Hct 30.6 L MCV 107 H MCH 36.2 H MCHC 34.0 RDW Std Deviation 60.7 H Plt Count 513 H D Neut % (Auto) 89 H Lymph % (Auto) 6 L Beckham % (Auto) 3 Eos % (Auto) 1 Baso % (Auto) 0 Neut # (Auto) 16.4 H Lymph # (Auto) 1.0 Beckham # (Auto) 0.5 Eos # (Auto) 0.2 Baso # (Auto) 0.1 Immature Gran # (Auto) 0.35 H Absolute Nucleated RBC 0.02 H Immature Gran % 2 H Nucleated RBC % 0 Sodium 126 L Potassium 4.1 Chloride 89 L Carbon Dioxide 30.3 Anion Gap 7 BUN 26 H Creatinine 0.7 Estim Creat Clear Calc 58.1 L eGFR > 60 BUN/Creatinine Ratio 37 H Glucose 107 H Calculated Osmolality 258 L Calcium 8.2 L Magnesium 1.6 ABG Interpretation ABG results: 03/07/25 14:41 VBG pH 7.49 VBG pCO2 37 VBG pO2 43 VBG Base Excess 5 H Quality Measures Quality Measures none Advance care planning discussed with:: patient Assessment & Plan Assessment Current Active Medications: Generic Name Dose Route Start Last Admin Trade Name Freq PRN Reason Stop Dose Admin Acetaminophen 650 mg 03/08/25 09:19 03/13/25 16:09 Acetaminophen 325 Mg Tablet PO 04/06/25 19:54 650 mg Q6H PRN Administration pain(1-3) and Fever >100.4 Hydrocodone Bitart/Acetaminophen 1 tab 03/18/25 19:54 03/18/25 20:40 Hydrocodone/Apap 5/325 Tablet PO 03/23/25 19:53 1 tab Q6HR PRN Administration PAIN SCALE 4-10(Mod-Sev Albuterol/Ipratropium 3 ml 03/07/25 19:55 03/13/25 13:48 Albuterol/Ipratropium (Duoneb) Rt Luciana 3 Ml Nebu INH 04/06/25 22:59 3 ml Q4HRRT PRN Administration SOB or Wheezing Allopurinol 300 mg 03/11/25 09:00 03/19/25 09:41 Allopurinol 100 Mg Tablet PO 04/10/25 08:59 300 mg QDAY HEIKE Administration Apixaban 2.5 mg 03/15/25 21:00 03/19/25 09:42 Apixaban 2.5 Mg Tablet PO 04/14/25 20:59 2.5 mg BID HEIKE Administration Benzonatate 100 mg 03/09/25 21:57 03/12/25 13:58 Benzonatate 100 Mg Capsule PO 04/08/25 21:56 100 mg Q8HR PRN Administration COUGH Protocol Bumetanide 1 mg 03/17/25 21:00 03/19/25 05:47 Bumetanide Inj 0.25 Mg/Ml Vial 4 Ml IVP 04/16/25 20:59 1 mg BIDD HEIKE Administration Carvedilol 12.5 mg 03/08/25 08:00 03/19/25 09:42 Carvedilol 12.5 Mg Tablet PO 04/07/25 07:59 12.5 mg BIDWM HEIKE Administration Melatonin 3 mg 03/15/25 21:00 03/18/25 20:39 Melatonin 3 Mg Tablet PO 04/14/25 20:59 3 mg HS HEIKE Administration Montelukast Sodium 10 mg 03/11/25 09:00 03/19/25 09:41 Montelukast Sodium 10 Mg Tablet PO 04/10/25 08:59 10 mg QDAY HEIKE Administration Ondansetron HCl 4 mg 03/07/25 19:55 Ondansetron Inj 2 Mg/Ml Inj 2 Ml IVP 04/06/25 19:54 Q6H PRN NAUSEA OR VOMITING Protocol Pantoprazole Sodium 40 mg 03/08/25 09:00 03/19/25 09:42 Pantoprazole 40 Mg Tablet PO 04/07/25 08:59 40 mg QDAY HEIKE Administration Sodium Chloride 1 gm 03/16/25 09:00 03/19/25 09:42 Sodium Chloride 1 Gm Tablet PO 04/15/25 08:59 1 gm BID HEIKE Administration Tamsulosin HCl 0.4 mg 03/15/25 16:00 03/19/25 09:41 Tamsulosin Hcl 0.4 Mg Capsule PO 04/14/25 15:59 0.4 mg QDAY HEIKE Administration Plan Patient is an 84-year-old female with a past medical history of CAD multi-vessel disease status post PCI LAD and RCA (2016), severe aortic stenosis, CHF HFpEF 65% (), chronic atrial fibrillation, history of hypertension, hyperlipidemia, gout history of CVA, interstitial fibrosis, interstitial lung with home oxygen 2 L, disease to the emergency room by EMS on 03/07/2025 with a chief complaint of syncopal episodes who was admitted for acute on chronic CHF exacerbation. #Acute on chronic congestive heart failure #CHF HFrEF EF 65% #Severe calcified aortic stenosis, 3.2 m/s #RSVP 56 mmHg #Pleural effusion status post thoracentesis (03/15/2025) Past medical history of congestive heart failure with sever aortic stenosis and pulmonary arterial hypertension. Patient may not be adherent to fluid restriction and salt restrictions. Patient would benefit from aortic valve replacement given severe aortic stenosis. Peak velocity of 3.2 m/s. Cxr (03/18/2025): Mild to moderate enlargment of cardiac contour Prominent vascular congestion, perihilar basilar edema, consider superimposed pneumonia or right base. Large right and moderate left pleural effusion. Echo (02/10/2025)Aortic root appears mildly dilated.Aortic valve leaflets are heavy calcification appears to have severe calcific aortic stenosis opening appears with only 1 to 2 mm in both parasternal long axis view and apical views.Peak aortic velocity measured 3.2 m/s but was not parallel to the jet most likely Mr. Severe calcific aortic stenosis.Heavy mitral annulus calcification mitral valve thickening with evidence of mild to moderate 1-2+ mitral regurgitation.Normal-sized left ventricle with evidence of concentric left ventricle hypertrophy with normal left ventricle wall motion normal ejection fraction of 65%. RV is normal in size., right ventricle appears to be mildly dilated with RV dysfunction. The estimated right ventricular systolic pressure, 56 mmHg. RAP 15.There is significant biatrial enlargement. Moderate tricuspid regurgitation. current weight 71.2 kg, dry weight during previous discharge 61.008 BNP 704 Ins and Outs: 1910/1680/230 Wt 71.753 Plan -Bumex 2 mg IV BID, monitor kidney function -Patient still continues to have significant edema and most of it is in the sacral area. BNP also is 584. Her dry weight also did not change much since admission. Patient's sodium is still 125 and is minimally confused. Heart failure mostly secondary to the severe aortic stenosis in the setting of HFpEF. -Recommend aggressive diuresis for now with Bumex 2 mg IV twice daily and fluid restriction of at least 1.5 L/day. -Needs to be net -1 to 2 L/day. -Carvedilol 12.5 BID -K>4 and Mg >2 -SpO <90%, support PRN -Daily Weights, Strict Ins and Outs, Fluid Strictions (1500), Sodium Restriction 2 grams per day #Severe Aortic Stenosis Regarding the severe aortic stenosis patient recommended to follow-up as outpatient with me for further evaluation of severe aortic stenosis but prior to that patient will need complete workup of her left lung pulmonary mass which is measured at close to 2 cm and appears spiculated raising a suspicion for cancer. Family does not want any kind of biopsy at the present point of time. Recommended to follow-up outpatient with oncology possible PET scan if needed. For now continue to treat the CHF exacerbation and afterload reduction. #Atrial fibrillation, rate controlled Past medical history of atrial fibrillation, rate controlled on carvedilol 12.5 mg BID and Eliquis 2.5 mg BID CHADSVAs 4 points Plan -Eliquis on HOLD given thoracentesis, plan resume after procedure if no amelia bleeding noted. -Continue home medicating of Carvedilol -Monitor for signs of bleeding -K>4 and Mg >2 #CAD s/p PCI #Hyperlipidemia Given patient's past medical history of CAD s/p PCI continue patient would benefit from Aspirin and high intensity statins, age not being aplicable fo ACSVD. Lipid: Triglycerides 95, Choleterol 104, LDL 55, HDL 30 Plan -Continue home Atorvastin 40 mg HS, consider high intensivity of AST/ALTs permit -Asprin 81 mg qday #Hypertension Home medication of Benazepril Plan -continue home medication -Hold inf SBP <120 #Hypo-somolar Hypervolemic Hyponatremia Likely in the setting of congestive heart failure as patient appeared to be fluid overloaded upon admisison give urine sodium noted to 31, thus greater than >20 mEq of NA, which would place patient in renal failure, but this is unlikely given no failure noted. CT abdomen note dot have left kindy atrophic. Urine sodium likely off given use of diuretis. Hyponatremia likely in the setting of CHF vs Abdomen US noted for Cirrhosis. Na 126 Plan -Per Nephrology -Water Restriction -Salt Tablet BID #Syncope On arrival patient complaing of syncopal event. Syncopal event likely secondary to acute on chronic chf exacerbation given pleural effusion noted once again as well as history of atrial fibrillation. CT head netative for acute hemorrhage or mass effect. L. and R. Carotid reported 0-10% stenosis. Plan -Treat undelrying, CHF exacerbation -consider orthostatic vitals -continue to monitor BP and heart rate. #CAP, likely GPC #Leukocytosis Bilateral pneumonia noted on chest x-ray Cxr (03/18/2025): Mild to moderate enlargment of cardiac contour Prominent vascular congestion, perihilar basilar edema, consider superimposed pneumonia or right base. Large right and moderate left pleural effusion. Plan -Ceftriaxone (03/10/2025-03/18/2025) and azithromythin (03/10/2025) -MRSA Negative -Pleural Fluid No growthin, pending anaerobic #Macroytic Anemia Likely in the setting of of hydroxyurea treatment for polycythemia likely secondary to bone marrow supression. Previous Folate >24 (12/28/2022). Plan -consider B12 and Folate levels -Continue Folic Acid #Polycythemia Home medication of Hydroxyurea 1000 mg #Gout Allopurinol 300 mg #History of CVA 2017 #Pulmonary mass left midlung measures actually smaller, 19 mm, compared to 28 mm on February 02, 2025 Health Maintenance: Disp: Pt is currently admitted to floors for further management of CHF exacerbation and hyponatremia, cardiology following FEN: cardiac diet DVT: compression device Code: DNR - The patient's plan was discussed with attending Dr. Yves Trujillo MD PGY1 Internal Medicine Attending Provider Attestation/Addendum I have personally seen and examined the patient separately on the above date of service and discussed the plan of care with the resident. I reviewed the resident Dr. Allyssa Trujillo consultation progress note and agree with the resident findings and plan in the note above and have also edited the documentation to reflect my findings and plan. Oumar Marinelli M.D. Interventional Cardiology
--- NOTE | 2025-03-19 11:19 | PC.SS ---
Addendum entered by Nohemi Jacobs 03/19/25 17:03: Rounding note: Patient will have another thoracentesis completed, will discharge in a few days. Per [facility], Auth. will be good up until tomorrow, 03/20/25. Original Note: consulted with [facility] to confirm how long auth is valid for. [facility] stated auth. is only good up until today,03/19/25. Request for auth. will need to be re-submitted.
--- NOTE | 2025-03-19 13:23 | ECHO_ITS ---
Transthoracic Echo Report Ht (in): 64 Wt (lb): 158 Exam Location: Echo Lab Status: Inpatient Distiller: Tasia Ko Indications: Procedure Performed: BP: 125 / 69 HR: 83 Technical Quality: Adequate. MEASUREMENTS (Male / Female) Normal Values 2D ECHO LVOT Diameter 1.8 cm DOPPLER AV Peak Velocity 292.3 cm/s AV Peak Gradient 34.2 mmHg AV Mean Gradient 23.7 mmHg AV Velocity Time Integral 56.0 cm LVOT Peak Velocity 81.7 cm/s LVOT Peak Gradient 2.7 mmHg LVOT Velocity Time Integral 21.1 cm LVOT Cardiac Index 2453.5 cm?/min?m? AV Area Cont Eq vti 1.0 cm? AV Area Cont Eq pk 0.7 cm? FINDINGS Right Ventricle . Aortic Valve The aortic valve is severely calcified with moderate aortic stenosis. Aortic Vmax of 2.92m/s and MPG of 23.7mmHg. Mild aortic regurgitation. CONCLUSIONS Indications: Aortic Stenosis Limited Aortic Valve Study AV severely calcified with moderate to severe . V Max of 3.2m/s. MPG 30 mmHg. Aortic valve area was 0.9 sq cm by VTI and Vmax indicating Severe and only shows minimal AV excursion with heavy calcification. LV function appears to be normal Oumar Marinelli (Electronically Signed) Final Date: 20 March 2025 10:51
--- NOTE | 2025-03-19 15:32 | ESPR_ITS ---
Documentation for date of: 03/19/25 Subjective Subjective Interval history: NO acute overnight events reported. Pt is seen and examined at bedside this morning. Pt is saturating 97% on 3L oxygen.Pt states she feels a little worse today, states she feels like she is unable to take deep breaths in. denies any chest pain, palpitations, and no changes in appetite. Pt does have mild shortness of breath. total fluid balance is 1.1L, with total urine output of 2.3L. Pt is scheduled to undergo thoracenhesis and pleural fluid will be sent for cytology tomorrow. Labs are reviewed, WBC 18.5, sodium is 126. Will continue to monitor daily labs closely. -son Sammy is updated with plan and is agreeable. Exam Vital Signs Temp Pulse Resp BP Pulse Ox O2 Del Method O2 Flow Rate 97.1 F 83 16 125/69 90 L Nasal Cannula 2 03/19/25 12:00 03/19/25 12:00 03/19/25 12:00 03/19/25 12:00 03/19/25 12:00 03/19/25 12:00 03/19/25 12:00 Narrative Exam GENERAL: A&Ox3 . weak, frail, lethargic appearing, Not in acute distress NEURO: no focal neurological deficits noted HEENT: Atraumatic, Normocephalic. mucous membranes moist. Eyes open, symmetrical, & clear HEART: systolic murmur heard LUNGS: Clear to auscultation with no wheezing or crackles. ABDOMEN: soft, non-distended, non-tender, bowel sounds heard, no guarding or rebound tenderness SKIN: No Rash or ecchymoses EXTREMITIES: non pitting edema bilaterally in LE, tenderness bilaterally in LE , able to move all 4 extremities, pedal pulses palpated Objective Labs 03/20/25 04:35 03/20/25 04:35 Labs: Laboratory Results - last 24 hr 03/19/25 05:13 WBC 18.5 H RBC 2.87 L Hgb 10.4 L Hct 30.6 L MCV 107 H MCH 36.2 H MCHC 34.0 RDW Std Deviation 60.7 H Plt Count 513 H D Neut % (Auto) 89 H Lymph % (Auto) 6 L [place] % (Auto) 3 Eos % (Auto) 1 Baso % (Auto) 0 Neut # (Auto) 16.4 H Lymph # (Auto) 1.0 [place] # (Auto) 0.5 Eos # (Auto) 0.2 Baso # (Auto) 0.1 Immature Gran # (Auto) 0.35 H Absolute Nucleated RBC 0.02 H Immature Gran % 2 H Nucleated RBC % 0 Sodium 126 L Potassium 4.1 Chloride 89 L Carbon Dioxide 30.3 Anion Gap 7 BUN 26 H Creatinine 0.7 Estim Creat Clear Calc 58.1 L eGFR > 60 BUN/Creatinine Ratio 37 H Glucose 107 H Calculated Osmolality 258 L Calcium 8.2 L Magnesium 1.6 ABG Interpretation ABG results: 03/07/25 14:41 VBG pH 7.49 VBG pCO2 37 VBG pO2 43 VBG Base Excess 5 H Quality Measures Quality Measures none Advance care planning discussed with:: patient and child Assessment & Plan Assessment Current Active Medications: Generic Name Dose Route Start Last Admin Trade Name Freq PRN Reason Stop Dose Admin Acetaminophen 650 mg 03/08/25 09:19 03/13/25 16:09 Acetaminophen 325 Mg Tablet PO 04/06/25 19:54 650 mg Q6H PRN Administration pain(1-3) and Fever >100.4 Hydrocodone Bitart/Acetaminophen 1 tab 03/18/25 19:54 03/18/25 20:40 Hydrocodone/Apap 5/325 Tablet PO 03/23/25 19:53 1 tab Q6HR PRN Administration PAIN SCALE 4-10(Mod-Sev Albuterol/Ipratropium 3 ml 03/07/25 19:55 03/13/25 13:48 Albuterol/Ipratropium (Duoneb) Rt Luciana 3 Ml Nebu INH 04/06/25 22:59 3 ml Q4HRRT PRN Administration SOB or Wheezing Allopurinol 300 mg 03/11/25 09:00 03/19/25 09:41 Allopurinol 100 Mg Tablet PO 04/10/25 08:59 300 mg QDAY HEIKE Administration Apixaban 2.5 mg 03/15/25 21:00 03/19/25 09:42 Apixaban 2.5 Mg Tablet PO 04/14/25 20:59 2.5 mg BID HEIKE Administration Benzonatate 100 mg 03/09/25 21:57 03/12/25 13:58 Benzonatate 100 Mg Capsule PO 04/08/25 21:56 100 mg Q8HR PRN Administration COUGH Protocol Bumetanide 2 mg 03/19/25 09:52 Bumetanide Inj 0.25 Mg/Ml Vial 4 Ml IVP 04/16/25 20:59 BIDD HEIKE Carvedilol 12.5 mg 03/08/25 08:00 03/19/25 09:42 Carvedilol 12.5 Mg Tablet PO 04/07/25 07:59 12.5 mg BIDWM HEIKE Administration Melatonin 3 mg 03/15/25 21:00 03/18/25 20:39 Melatonin 3 Mg Tablet PO 04/14/25 20:59 3 mg HS HEIKE Administration Montelukast Sodium 10 mg 03/11/25 09:00 03/19/25 09:41 Montelukast Sodium 10 Mg Tablet PO 04/10/25 08:59 10 mg QDAY HEIKE Administration Ondansetron HCl 4 mg 03/07/25 19:55 Ondansetron Inj 2 Mg/Ml Inj 2 Ml IVP 04/06/25 19:54 Q6H PRN NAUSEA OR VOMITING Protocol Pantoprazole Sodium 40 mg 03/08/25 09:00 03/19/25 09:42 Pantoprazole 40 Mg Tablet PO 04/07/25 08:59 40 mg QDAY HEIKE Administration Sodium Chloride 1 gm 03/16/25 09:00 03/19/25 09:42 Sodium Chloride 1 Gm Tablet PO 04/15/25 08:59 1 gm BID HEIKE Administration Tamsulosin HCl 0.4 mg 03/15/25 16:00 03/19/25 09:41 Tamsulosin Hcl 0.4 Mg Capsule PO 04/14/25 15:59 0.4 mg QDAY HEIKE Administration Plan Ms. Mccormack is a 84-year-old female with a past medical history of severe aortic stenosis, CAD status post stents, HFpEF (65% EF on 01/2025), A-fib on Eliquis, CVA 2018, polycythemia vera, pulmonary fibrosis on 2 L home O2 (baseline SpO2 95%), hypertension, gout, chronic UTIs was admitted to the hospital on 03/07/2025 for syncopal episode likely in the setting of severe aortic stenosis and for acute decompensated heart failure exacerbation. #Acute on Chronic hypoxic respiratory failure 2/2 CAP +/- CHF exacerbation - improving #Community-acquired pneumonia #Pleural effusions, right s/p thoracenthesis #Pulmonary fibrosis - Baseline 02 requirement 2L NC, on admission requiring between 4L-5L - Patient Endorses productive cough, fevers, and shortness of breath - CXR: Bilateral Pneumonia with right pleural effusions -Pt is s/p thoracenthesis and 1.9L of plural fluid is removed on 03/15/25 -pleural fluid for cell count, protein, LDH transudative, gram stain/culture negative, and cytology pending -Repeat CXR on 03/18 shows Large right and moderate left pleural effusions and Moderate CHF. Plan: -DuoNebs as needed -Continue Supplemental oxygen, wean as tolerated -Azithromycin on 03/10- 03/16 -Continue ceftriaxone 03/10- #Hypoosmolar Hypervolemic hyponatremia - most likely 2/2 to diuretics versus fluid overload - On admission: Sodium 129, serum osmolality 261 - Patient's diuretics increased to Bumex 1 mg twice daily - Urine electrolytes WNL - Nephrology consulted, appreciate recommendations - Plan: Nephrology following, continue salt tablets BID #Pulmonary mass #Pulmonary nodules - findings concerning for malignancy -chest x-rays reveals 19mm pulmonary mass which appears to be decreasing in size. -CT of chest wo contrast - Heart failure pattern with large right pleural effusion, Pulmonary mass spiculated margins left upper lobe , 6 mm pulmonary nodule right upper lobe, 3 mm pulmonary nodule left upper -US guided thoracenthesis with cell cytology ordered -Per son, family and pt have decided to not undergo lung biopsy as pt is very frail and weak, will wait for cell cytology of the pleural fluid. #Urinary Retention -Pt has urinary retention evident on CT scan of abdomen and pelvis -Bladder scans Q4H showed urinary retention requiring straight cath multiple times a day daily. -On 03/15 trail of tamsulosin was ordered without improvement -Barrios cath is ordered, pt will be discharged on barrios and will need outpatient urology appointment #Syncopal episode- resolved #Acute decompensated heart failure exacerbation #HFpEF (65% EF on 01/2025) #severe aortic stenosis #Hx of CAD s/p stents #Hx A-fib (on Eliquis) Patient came in after having a syncopal episode today in the rehab center where she went to the bathroom. Patient does have a history of severe aortic stenosis seen on echo on previous admission on January and she was supposed to follow-up with cardiology for possible TAVR. Patient has not follow-up with cardiology for TAVR as per patient's son. Patient head CT was negative and EKG showed A-fib. CHADsVASc 5 -Continue Bumex 1 mg IV BID -Continue carvedilol 12.5 mg twice daily -Eliquis 2.5 mg twice daily -Strict ALEX's -Daily weights -Cardiac diet, dysphagia 3 chopped -Fluid restrictions at 1500 -Keep potassium magnesium above 4 and 2 respectively -Cardiology following, appreciate recommendations -Will continue to monitor #Primary Hypertension -Holding home benazepril due to normotension -Pt is on Coreg 12.5mg BID, BP is stable with systolic < 150, will continue to monitor closely and will add another agent if pt become hypertensive #Hx of Gout -Resumed home allopurinol #Macrocytic anemia -Hgb 11.0, Hct 32.6, MCV 108 No active signs of bleeding and hemoglobin stable #Hx of CVA 2018 -no residual deficit Disposition: Patient originally admitted to telemetry for syncopal episode, currently in AHRF 2/2 CHF exacerbation and bilateral pleural effusions Diet: Cardiac, 1800 ml and high protein ensure GI prophylaxis: protonix DVT prophylaxis: Eliquis Code:DNR/DNI Assessment and plan discussed with my attending physician Dr. Matthew Ladd (PGY-1)- Internal medicine resident Attending Provider Attestation/Addendum 84-year-old female with multiple comorbidities including hypertension, atrial fibrillation on Eliquis, coronary artery disease status post stents, heart failure with preserved EF with EF 65%, severe aortic stenosis who is currently following up with outpatient cardiology for possible TAVR, pulmonary fibrosis on 2 L supplemental oxygen at home who presented status post syncopal episode with differential diagnoses including severe aortic stenosis versus decompensated heart failure. As of now, we are diuresing the patient with improvement in symptoms and for severe aortic stenosis cardiology has been consulted and appreciate their recommendations. Furthermore, patient also noted to have significant pleural effusion requiring thoracentesis and likely related to possible CHF exacerbation. As of now, patient's oxygen requirement is going down however continued to be fluid overloaded for which we will continue IV diuretic therapy. Overnight, obtain an x-ray however Noted to have reaccumulation of pleural effusion requiring thoracenthesis. I reviewed above note and agree with findings and plans. I have also personally examined the patient with medicine team and went over assessment and plan with medical team including international representative and resident physician.
[2025-03-19] MEDS: Magnesium Sulfate 4 GM Ivpb 4 GM/50 ML BAG IV (16:37)
[2025-03-19] MEDS: HYDROcodone/APAP 5/325 TABLET 1 TAB PO (17:16)
[2025-03-19] MEDS: BUMETANIDE INJ 0.25 MG/ML VIAL 4 ML 2 MG IVP (17:17)
[2025-03-19] MEDS: MELATONIN 3 MG TABLET PO (20:35)
[2025-03-19] MEDS: ALBUTEROL/IPRATROPIUM (Duoneb) RT SOL 3 ML NEBU INH (22:24)
[2025-03-20] VITALS (15 sets, daily range): BP systolic 107–139; BP diastolic 53–72; PULSE 56–78; RESP 14–20; TEMP 36.3–36.7; O2SAT 94–99
[2025-03-20] MEDS: ALBUTEROL/IPRATROPIUM (Duoneb) RT SOL 3 ML NEBU INH (04:46)
[2025-03-20] MEDS: BUMETANIDE INJ 0.25 MG/ML VIAL 4 ML 2 MG IVP ×2 (05:12→17:46)
[2025-03-20] MEDS: HYDROcodone/APAP 5/325 TABLET 1 TAB PO ×2 (05:16→11:34)
[2025-03-20 05:26] LABS: INR 1.3 (0.9-1.3); Partial Thromboplastin Time 36.2 Seconds (22.0-36.0); Prothrombin Time 13.9 Seconds (9.0-12.2)
[2025-03-20 05:27] LABS: Basophils # (Auto) 0.1 Thou/mm3 (0.0-0.2); Basophils % (Auto) 0 % (0-2.5); Eosinophils # (Auto) 0.2 Thou/mm3 (0.0-0.5); Eosinophils % (Auto) 1 % (0-10); Hematocrit 30.7 % (36.0-46.0); Hemoglobin 10.4 g/dL (12.0-16.0); Immature Granulocytes % (Auto) 3 % (0-0); Immature Granulocytes Auto 0.51 Thou/mm3 (0.00-0.00); Lymphocytes # (Auto) 1.1 Thou/mm3 (1.0-4.8); Lymphocytes % (Auto) 5 % (10-50); Mean Corpuscular HGB Conc 33.9 g/dl (31.0-37.0); Mean Corpuscular Hemoglobin 36.4 pg (25.0-35.0); Mean Corpuscular Volume 107 fL (80-100); Monocytes # (Auto) 0.5 Thou/mm3 (0.0-0.8); Monocytes % (Auto) 3 % (0-12); Neutrophils % (Auto) 89 % (37-80); Nucleated Red Blood Cell # 0.02 Thou/mm3 (0.00-0.00); Nucleated Red Blood Cell % 0 /100 WBC (0); Platelet Count 525 Thou/mm3 (140-440); RDW Standard Deviation 61.4 fL (36.4-46.3); Red Blood Count 2.86 Miln/mm3 (4.00-5.20); White Blood Count 20.3 Thou/mm3 (3.6-11.0)
[2025-03-20 05:30] LABS: Anion Gap 5 (7-16); BUN/Creatinine Ratio 31 Ratio (12-20); Blood Urea Nitrogen 25 mg/dL (9-23); Calcium 8.1 mg/dL (8.3-10.6); Carbon Dioxide 30.6 mMol/L (20.0-31.0); Chloride 89 mMol/L (98-107); Creatinine (Component) 0.8 mg/dL (0.6-1.3); Estimated Creatinine Clearance 50.8 mL/min (>60); Glucose 118 mg/dL (74-106); Magnesium 2.1 mg/dL (1.6-2.6); Osmolality,Calculated 256 (275-295); Potassium 3.8 mMol/L (3.4-5.1); Sodium 125 mMol/L (136-145); eGFR > 60 See Note
[2025-03-20] MEDS: SODIUM CHLORIDE 1 GM TABLET PO ×2 (10:07→20:05)
[2025-03-20] MEDS: MONTELUKAST SODIUM 10 MG TABLET PO (10:08)
[2025-03-20] MEDS: carVEDILOL 12.5 MG TABLET PO ×2 (10:08→17:48)
[2025-03-20] MEDS: PANTOPRAZOLE 40 MG TABLET PO (10:09)
[2025-03-20] MEDS: TAMSULOSIN HCL 0.4 MG CAPSULE PO (10:09)
[2025-03-20] MEDS: allopurinoL 100 MG TABLET 300 MG PO (10:09)
--- NOTE | 2025-03-20 10:57 | CHAP ---
ie was visited by a Spiritual Care Volunteer on 03/20/2025 between 0900 and 0920 and received comfort, encouragement and/or prayer.
--- NOTE | 2025-03-20 12:52 | PD.ONCCONS ---
HPI Data of Consult Requesting Physician: Saskia Castro MD Primary Care Provider: Burak Hebert MD Consult Narrative Reason for consult: Suspected lung malignancy History of present illness: Patient is an 84-year-old lady resident of [facility] with significant cardiac history of severe aortic stenosis coronary artery disease A-fib on Eliquis, pulmonary fibrosis on 2 L of O2 was admitted with syncopal episode. Chest CT 03/12/2025 revealed heart failure pattern with large right pleural effusion with pulmonary masses with spiculated left upper lobe 20 mm with subcentimeter lesion noted on both right upper and left upper lobe. Highest differential is lung cancer. When biopsy was suggested, patient declined although was willing to undergo thoracentesis with pleural fluid being checked for cytology. Being followed by cardiology for severe aortic stenosis but has turned down TAVR procedure thus far. Patient now referred for oncological consultation. cc:: cc: Saskia Castro MD Past Medical History Family History OTHER FAMILY HX: Noncontributory Surgical History OTHER SURGICAL HX: History of DONATO cholecystectomy Social History SOCIAL: Has 6 children denies tobacco alcohol or drug use Past Medical History Comments PMH COMMENT: History of pulmonary fibrosis pneumonia prior CVA coronary artery disease with stents severe aortic stenosis CHF atrial fibrillation hypertension Meds Home Medications and Allergies Home Medications ?Medication ?Instructions ?Recorded ?Confirmed ?Type allopurinol 300 mg tablet 300 mg PO QDAY 10/11/18 03/08/25 History alpha lipoic acid 600 mg capsule 600 mg PO QDAY 01/14/23 03/08/25 History benazepril 10 mg tablet 10 mg PO BID PRN hypertension 01/14/23 03/08/25 History carvedilol 12.5 mg tablet 12.5 mg PO BID 01/14/23 03/08/25 History cetirizine 10 mg tablet 10 mg PO QDAY 01/14/23 03/08/25 History cholecalciferol (vitamin D3) 125 5,000 unit PO QDAY 01/14/23 03/08/25 History mcg (5,000 unit) tablet (Vitamin D3) folic acid 1 mg tablet 1 mg PO TID 01/14/23 03/08/25 History montelukast 10 mg tablet 10 mg PO QDAY 01/14/23 03/08/25 History omeprazole 40 mg capsule,delayed 40 mg PO QDAY 01/14/23 03/08/25 History release apixaban 2.5 mg tablet (Eliquis) 2.5 mg PO BID 01/15/23 03/08/25 History nitroglycerin 0.4 mg sublingual 0.4 mg buccal Q5M PRN Chest Pain 01/15/23 03/08/25 History tablet albuterol sulfate 90 mcg/actuation 1 inh inhalation BID 07/09/23 03/08/25 History aerosol inhaler bumetanide 1 mg tablet 1 mg PO QDAY 07/09/23 03/08/25 History guaifenesin 600 mg tablet,extended 600 mg PO BID 07/09/23 03/08/25 History release hydroxyurea 500 mg capsule 1,000 mg PO HS 07/09/23 03/08/25 History budesonide 160 mcg-glycopyr 9 2 inh inhalation BID 12/18/24 03/08/25 History mcg-formot 4.8 mcg/actuation HFA inhaler (Breztri Aerosphere) Allergies Allergy/AdvReac Type Severity Reaction Status Date / Time iodine Allergy Severe Swelling Verified 03/12/25 19:50 of Lip/Tongue/Throat shellfish derived Allergy Severe Swelling Verified 03/12/25 19:50 of Lip/Tongue/Throat Exam Vital Signs Temp Pulse Resp BP Pulse Ox O2 Del Method O2 Flow Rate 98.0 F 75 19 128/64 95 Nasal Cannula 2 03/20/25 12:00 03/20/25 12:00 03/20/25 12:00 03/20/25 12:00 03/20/25 12:00 03/20/25 12:00 03/20/25 12:00 Narrative Exam Appearing comfortable this p.m. having lunch answering questions haltingly but appropriately Results Labs 03/20/25 04:35 03/20/25 04:35 Labs: Short CBC 03/20/25 Range/Units 04:35 WBC 20.3 H (3.6-11.0) Thou/mm3 Hgb 10.4 L (12.0-16.0) g/dL Hct 30.7 L (36.0-46.0) % Plt Count 525 H (140-440) Thou/mm3 BMP 03/20/25 04:35 Sodium 125 L Potassium 3.8 Chloride 89 L Carbon Dioxide 30.6 BUN 25 H Creatinine 0.8 Glucose 118 H Calcium 8.1 L ABG Interpretation ABG results: 03/07/25 14:41 VBG pH 7.49 VBG pCO2 37 VBG pO2 43 VBG Base Excess 5 H Assessment and Plan Additional Assessment & Plan Additional Plan: 1. History of coronary artery disease hypertension A-fib CHF severe aortic stenosis pulmonary fibrosis on O2 admitted with shortness of breath. 2. CT shows heart failure pattern with large right pleural effusion along with several nodules including a prominent left upper lobe 20 mm likely malignancy. 3. Patient agrees to thoracentesis for comfort but declines biopsy. Cytology even if showing malignancy, will limit choices such as checking tissue molecules for possible benefit from immunotherapy or targeted therapy. 4. Patient and son Sammy already has had conversation about receiving just comfort measures via hospice program not wishing cancer treatment or other forms of major care.
--- NOTE | 2025-03-20 13:55 | ESPR_ITS ---
Documentation for date of: 03/20/25 Subjective Subjective Interval history: Shereen is a 84-year-old female with a past medical history of severe aortic stenosis, CAD status post stents, HFpEF (60-65% on 04/2023), A-fib on Eliquis, CVA 2017, polycythemia vera, pulmonary fibrosis on 2 L home O2 (baseline SpO2 95%), pulmonary mass, hypertension, gout, chronic UTIs who was admitted to [facility] on 03/07/2025 after a syncopal episode. It was noted that patient was recently discharged from hospital in January 2025 and was supposed to get cardiac catheterization and TAVR for aortic stenosis leading to her recurrent respiratory failure. She was recently admitted into rehab after her hospitalization and came again after her syncopal episode. She was taking her medicines as prescribed. Her cognos consultant is Dr. Fountain. She does not want aggressive treatment at this time, and is agreeable to getting a thoracentesis, however does not want cardiac catheterization at this time. She endorses about 130 pound weight loss over the past 3 years (unsure if this is true). She says she was 3 years ago from her . She denies being on any SSRIs. She denies having history of low sodium. No other complaints this time. ED Course: Initially patient came in hypertensive and afebrile. Initial labs were remarkable for leukocytosis, low hemoglobin, hyponatremia, hypomagnesemia, and elevated BNP. Patient's imaging included chest x-ray which showed CHF pattern and some possible superimposed pneumonia of both lungs, but is more consistent with pulmonary edema. Additional imaging can have an x-ray which was significant only for arthritic changes, head CT which was unremarkable, and EKG which showed A-fib. 03/20/2025 Patient evaluated at bedside, reported no acute discomfort. Primary team had talked to the patient regarding biopsy of lung mass, radiation oncologist Dr. Linh Lopez also followed the patient, but patient has decided to hold off on any aggressive interventions and testing. Will get thoracentesis for symptomatic relief and fluid will be sent for cytology. Patient has SIADH and CHF, serum sodium fails to improve after adding salt tabs, chart review shows patient is fluid restricted to 1500 cc, but her fluid intake exceeds the regulated amount. Currently on diuresis and volume overload complicating SIADH, recommended further restricting daily fluid intake to 1200 cc, continue with salt tabs. Exam Vital Signs Temp Pulse Resp BP Pulse Ox O2 Del Method O2 Flow Rate 98.0 F 75 19 128/64 95 Nasal Cannula 2 03/20/25 12:00 03/20/25 12:00 03/20/25 12:00 03/20/25 12:00 03/20/25 12:00 03/20/25 12:00 03/20/25 12:00 Narrative Exam GENERAL: A&Ox3 . weak, frail, lethargic appearing, Not in acute distress NEURO: no focal neurological deficits noted HEENT: Atraumatic, Normocephalic. mucous membranes moist. Eyes open, symmetrical, & clear HEART: systolic murmur heard LUNGS: Clear to auscultation with no wheezing or crackles. ABDOMEN: soft, non-distended, non-tender, bowel sounds heard, no guarding or rebound tenderness SKIN: No Rash or ecchymoses EXTREMITIES: non pitting edema bilaterally in LE, tenderness bilaterally in LE , able to move all 4 extremities, pedal pulses palpated Objective Labs 03/21/25 05:23 03/20/25 04:35 Labs: Laboratory Results - last 24 hr 03/20/25 04:35 WBC 20.3 H RBC 2.86 L Hgb 10.4 L Hct 30.7 L MCV 107 H MCH 36.4 H MCHC 33.9 RDW Std Deviation 61.4 H Plt Count 525 H Neut % (Auto) 89 H Lymph % (Auto) 5 L [place] % (Auto) 3 Eos % (Auto) 1 Baso % (Auto) 0 Neut # (Auto) 18.0 H Lymph # (Auto) 1.1 [place] # (Auto) 0.5 Eos # (Auto) 0.2 Baso # (Auto) 0.1 Immature Gran # (Auto) 0.51 H Absolute Nucleated RBC 0.02 H Immature Gran % 3 H Nucleated RBC % 0 PT 13.9 H INR 1.3 APTT 36.2 H Sodium 125 L Potassium 3.8 Chloride 89 L Carbon Dioxide 30.6 Anion Gap 5 L BUN 25 H Creatinine 0.8 Estim Creat Clear Calc 50.8 L eGFR > 60 BUN/Creatinine Ratio 31 H Glucose 118 H Calculated Osmolality 256 L Calcium 8.1 L Magnesium 2.1 ABG Interpretation ABG results: 03/07/25 14:41 VBG pH 7.49 VBG pCO2 37 VBG pO2 43 VBG Base Excess 5 H Quality Measures Quality Measures none Advance care planning discussed with:: patient Assessment & Plan Assessment Current Active Medications: Generic Name Dose Route Start Last Admin Trade Name Freq PRN Reason Stop Dose Admin Acetaminophen 650 mg 03/08/25 09:19 03/13/25 16:09 Acetaminophen 325 Mg Tablet PO 04/06/25 19:54 650 mg Q6H PRN Administration pain(1-3) and Fever >100.4 Hydrocodone Bitart/Acetaminophen 1 tab 03/18/25 19:54 03/20/25 11:34 Hydrocodone/Apap 5/325 Tablet PO 03/23/25 19:53 1 tab Q6HR PRN Administration PAIN SCALE 4-10(Mod-Sev Albuterol/Ipratropium 3 ml 03/07/25 19:55 03/20/25 04:46 Albuterol/Ipratropium (Duoneb) Rt Luciana 3 Ml Nebu INH 04/06/25 22:59 3 ml Q4HRRT PRN Administration SOB or Wheezing Allopurinol 300 mg 03/11/25 09:00 03/20/25 10:09 Allopurinol 100 Mg Tablet PO 04/10/25 08:59 300 mg QDAY HEIKE Administration Apixaban 2.5 mg 03/15/25 21:00 03/19/25 09:42 Apixaban 2.5 Mg Tablet PO 04/14/25 20:59 2.5 mg BID HEIKE Administration Benzonatate 100 mg 03/09/25 21:57 03/12/25 13:58 Benzonatate 100 Mg Capsule PO 04/08/25 21:56 100 mg Q8HR PRN Administration COUGH Protocol Bumetanide 2 mg 03/19/25 09:52 03/20/25 05:12 Bumetanide Inj 0.25 Mg/Ml Vial 4 Ml IVP 04/16/25 20:59 2 mg BIDD HEIKE Administration Carvedilol 12.5 mg 03/08/25 08:00 03/20/25 10:08 Carvedilol 12.5 Mg Tablet PO 04/07/25 07:59 12.5 mg BIDWM HEIKE Administration Melatonin 3 mg 03/15/25 21:00 03/19/25 20:35 Melatonin 3 Mg Tablet PO 04/14/25 20:59 3 mg HS HEIKE Administration Montelukast Sodium 10 mg 03/11/25 09:00 03/20/25 10:08 Montelukast Sodium 10 Mg Tablet PO 04/10/25 08:59 10 mg QDAY HEIKE Administration Ondansetron HCl 4 mg 03/07/25 19:55 Ondansetron Inj 2 Mg/Ml Inj 2 Ml IVP 04/06/25 19:54 Q6H PRN NAUSEA OR VOMITING Protocol Pantoprazole Sodium 40 mg 03/08/25 09:00 03/20/25 10:09 Pantoprazole 40 Mg Tablet PO 04/07/25 08:59 40 mg QDAY HEIKE Administration Sodium Chloride 1 gm 03/16/25 09:00 03/20/25 10:07 Sodium Chloride 1 Gm Tablet PO 04/15/25 08:59 1 gm BID HEIKE Administration Tamsulosin HCl 0.4 mg 03/15/25 16:00 03/20/25 10:09 Tamsulosin Hcl 0.4 Mg Capsule PO 04/14/25 15:59 0.4 mg QDAY HEIKE Administration Plan Assessment Shereen is a 84-year-old female with a past medical history of severe aortic stenosis, CAD status post stents, HFpEF (60-65% on 04/2023), A-fib on Eliquis, CVA 2017, polycythemia vera, pulmonary fibrosis on 2 L home O2 (baseline SpO2 95%), pulmonary mass, hypertension, gout, chronic UTIs. #Hypoosmolar hypervolemic hyponatremia #SIADH #CHF Urine sodium normal, urine chloride low, urine potassium normal This is usually unexpected with diuresis with Bumex There could be diuresis resistance or not enough diuretic or the timing of the urine was taken after Bumex was given SIADH as patient's urine sodium is also low Hyponatremia likely related to heart failure and diuresis This could be a combination of water retention with RAAS and heart failure and also diuresis Plan: ? Continue CMP ? Free water restriction 1200 cc/day ? Continue with diuresis for management of CHF ? Daily weights ? Bumex 1 mg p.o. daily ? Salt tabs 1 g 3 times daily #Acute hypoxic respiratory failure #Community-acquired pneumonia #Pleural effusions, bilateral #Syncopal episode #Acute decompensated heart failure exacerbation #Hx of severe aortic stenosis #Hx of HFpEF (65% EF on 01/2025) #Hx of CAD s/p stents #Hx of A-fib (on Eliquis) #Pulmonary mass, left lung #Hx of polycythemia vera #Hx of pulmonary fibrosis on 2 L home O2 #Hx of gout #Hx of chronic UTIs #Hx of CVA 2018 #Hx of hypertension #Hx of macrocytic anemia Above handeled by primary hospitalist team Patient seen and care discussed with my attending physician, Dr. Last Carmona PGY2 Attending Provider Attestation/Addendum Patient seen and examined with resident physician Dr. Carmona. Note reviewed, agree with findings and recommendations. Patient currently seen in telemetry. Still having some shortness of breath. s/p thoracentesis. Edema improved. Sodium low-salt tablets increased to 2 times daily. 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 CHF with hyponatremia portends poor prognosis.
--- NOTE | 2025-03-20 15:11 | PD.RESPRO ---
Documentation for date of: 03/20/25 Subjective Subjective Interval history: Patient is an 84-year-old female with a past medical history of CAD multi-vessel disease status post PCI LAD and RCA (2017), severe aortic stenosis, CHF HFpEF 65% (), chronic atrial fibrillation, history of hypertension, hyperlipidemia, gout history of CVA, interstitial fibrosis, interstitial lung with home oxygen 2 L, disease to the emergency room by EMS on 03/07/2025 with a chief complaint of syncopal episodes and bilateral leg swelling and weakness. Patient was admitted overnight for syncope acute on chronic decompensated heart failure. Nephrology consulted for hyper-osmolar hypo-volemic hyponatremia. Cardiology consulted for CHF exacerbation. 03/18/2025: Patient examined at bedside this morning. Patient stated she felt fluids was inside her lungs with some dyspnea. Per chart review, repeat chest x-ray obtained with left pleural effusion noted with possible superimpsed right base pneumonia. Continue diuresis. Upper thigh edema still noted. In and Outs: 2300/1300/+1000 Cumulative balance 9485 03/19/2025: Patient examined at bedside. Patient denied chest pain or palpitations. Patient saturating well on 2 liters of oxygen. Patient is scheduled for thoracentesis. Eliquis now on hold. Additional dose of bumex 1 mg IV X 1 given and Bumex 2 mg IV BID. Continue to monitor kidney function. 03/20/2025: No overnight events. Patient continues to complain of some shortness of breath and feeling liquid in her lungs. Patient denied palpitations or chest pain. Nephrology recommending salt tablets TID. Continue Bumex 2 mg BID given patient was allowed to drink 4200 ml overnight. Discussed at length with the entire nursing staff regarding the need to do strict input output and keep 1500 mL intake only so the patient can be net negative. Patient has not been net negative since admission. Her hyponatremia will only improve once she is diuresed well. Regarding the left pulmonary mass, Dr. Melton consulted once again for possible CT biopsy, declined. Pending thoracentesis and cytology. (03/20/2025): Ins and Outs 4200/2950/+1250 Exam Vital Signs Temp Pulse Resp BP Pulse Ox O2 Del Method O2 Flow Rate 98.0 F 75 19 128/64 95 Nasal Cannula 2 03/20/25 12:00 03/20/25 12:00 03/20/25 12:03/20/25 12:00 03/20/25 12:00 03/20/25 12:03/20/25 12:00 Narrative Exam General Appearance: Alert & Oriented X3, thin female who is lying in bed in no acute distress HEENT: Skull symmetrical and atraumatic. Conjunctivae pale pink and moist. Pupils equal, round, reactive to light and accommodation (PERRL). Cardio: Normal Rate and irregular rhythm with S1 and S2 heart sounds. Systolic Murmur noted. No bruits on carotid auscultation. Trace peripheral edema. Lungs: Symmetric with equal expansion. Chest and back non-tender. Breath sound with mild crackles noted this morning. Abdomen: Non-tender, Non-distended, Normal Reactive Bowel Sounds Neuro: Alert, cooperative, oriented to person, place, and time. Speech clear. CN grossly intact. Upper motor strength 5/5 and Lower motor strength 3/5. Sensation intact. Objective Labs 03/21/25 05:23 03/21/25 05:23 Labs: Laboratory Results - last 24 hr 03/20/25 04:35 WBC 20.3 H RBC 2.86 L Hgb 10.4 L Hct 30.7 L MCV 107 H MCH 36.4 H MCHC 33.9 RDW Std Deviation 61.4 H Plt Count 525 H Neut % (Auto) 89 H Lymph % (Auto) 5 L Brewster % (Auto) 3 Eos % (Auto) 1 Baso % (Auto) 0 Neut # (Auto) 18.0 H Lymph # (Auto) 1.1 Brewster # (Auto) 0.5 Eos # (Auto) 0.2 Baso # (Auto) 0.1 Immature Gran # (Auto) 0.51 H Absolute Nucleated RBC 0.02 H Immature Gran % 3 H Nucleated RBC % 0 PT 13.9 H INR 1.3 APTT 36.2 H Sodium 125 L Potassium 3.8 Chloride 89 L Carbon Dioxide 30.6 Anion Gap 5 L BUN 25 H Creatinine 0.8 Estim Creat Clear Calc 50.8 L eGFR > 60 BUN/Creatinine Ratio 31 H Glucose 118 H Calculated Osmolality 256 L Calcium 8.1 L Magnesium 2.1 ABG Interpretation ABG results: 03/07/25 14:41 VBG pH 7.49 VBG pCO2 37 VBG pO2 43 VBG Base Excess 5 H Quality Measures Quality Measures none Advance care planning discussed with:: patient Assessment & Plan Assessment Current Active Medications: Generic Name Dose Route Start Last Admin Trade Name Freq PRN Reason Stop Dose Admin Acetaminophen 650 mg 03/08/25 09:19 03/13/25 16:09 Acetaminophen 325 Mg Tablet PO 04/06/25 19:54 650 mg Q6H PRN Administration pain(1-3) and Fever >100.4 Hydrocodone Bitart/Acetaminophen 1 tab 03/18/25 19:54 03/20/25 11:34 Hydrocodone/Apap 5/325 Tablet PO 03/23/25 19:53 1 tab Q6HR PRN Administration PAIN SCALE 4-10(Mod-Sev Albuterol/Ipratropium 3 ml 03/07/25 19:55 03/20/25 04:46 Albuterol/Ipratropium (Duoneb) Rt Luciana 3 Ml Nebu INH 04/06/25 22:59 3 ml Q4HRRT PRN Administration SOB or Wheezing Allopurinol 300 mg 03/11/25 09:00 03/20/25 10:09 Allopurinol 100 Mg Tablet PO 04/10/25 08:59 300 mg QDAY HEIKE Administration Apixaban 2.5 mg 03/15/25 21:00 03/19/25 09:42 Apixaban 2.5 Mg Tablet PO 04/14/25 20:59 2.5 mg BID HEIKE Administration Benzonatate 100 mg 03/09/25 21:57 03/12/25 13:58 Benzonatate 100 Mg Capsule PO 04/08/25 21:56 100 mg Q8HR PRN Administration COUGH Protocol Bumetanide 2 mg 03/19/25 09:52 03/20/25 05:12 Bumetanide Inj 0.25 Mg/Ml Vial 4 Ml IVP 04/16/25 20:59 2 mg BIDD HEIKE Administration Carvedilol 12.5 mg 03/08/25 08:00 03/20/25 10:08 Carvedilol 12.5 Mg Tablet PO 04/07/25 07:59 12.5 mg BIDWM HEIKE Administration Melatonin 3 mg 03/15/25 21:00 03/19/25 20:35 Melatonin 3 Mg Tablet PO 04/14/25 20:59 3 mg HS HEIKE Administration Montelukast Sodium 10 mg 03/11/25 09:00 03/20/25 10:08 Montelukast Sodium 10 Mg Tablet PO 04/10/25 08:59 10 mg QDAY HEIKE Administration Ondansetron HCl 4 mg 03/07/25 19:55 Ondansetron Inj 2 Mg/Ml Inj 2 Ml IVP 04/06/25 19:54 Q6H PRN NAUSEA OR VOMITING Protocol Pantoprazole Sodium 40 mg 03/08/25 09:00 03/20/25 10:09 Pantoprazole 40 Mg Tablet PO 04/07/25 08:59 40 mg QDAY HEIKE Administration Sodium Chloride 1 gm 03/16/25 09:00 03/20/25 10:07 Sodium Chloride 1 Gm Tablet PO 04/15/25 08:59 1 gm BID HEIKE Administration Tamsulosin HCl 0.4 mg 03/15/25 16:00 03/20/25 10:09 Tamsulosin Hcl 0.4 Mg Capsule PO 04/14/25 15:59 0.4 mg QDAY HEIKE Administration Plan Patient is an 84-year-old female with a past medical history of CAD multi-vessel disease status post PCI LAD and RCA (2016), severe aortic stenosis, CHF HFpEF 65% (), chronic atrial fibrillation, history of hypertension, hyperlipidemia, gout history of CVA, interstitial fibrosis, interstitial lung with home oxygen 2 L, disease to the emergency room by EMS on 03/07/2025 with a chief complaint of syncopal episodes who was admitted for acute on chronic CHF exacerbation. #Acute on chronic congestive heart failure #CHF HFrEF EF 65% #Severe calcified aortic stenosis, 3.2 m/s #RSVP 56 mmHg #Pleural effusion status post thoracentesis (03/15/2025) Past medical history of congestive heart failure with sever aortic stenosis and pulmonary arterial hypertension. Patient may not be adherent to fluid restriction and salt restrictions. Patient would benefit from aortic valve replacement given severe aortic stenosis. Peak velocity of 3.2 m/s. Cxr (03/18/2025): Mild to moderate enlargment of cardiac contour Prominent vascular congestion, perihilar basilar edema, consider superimposed pneumonia or right base. Large right and moderate left pleural effusion. Echo (02/10/2025)Aortic root appears mildly dilated.Aortic valve leaflets are heavy calcification appears to have severe calcific aortic stenosis opening appears with only 1 to 2 mm in both parasternal long axis view and apical views.Peak aortic velocity measured 3.2 m/s but was not parallel to the jet most likely Mr. Severe calcific aortic stenosis.Heavy mitral annulus calcification mitral valve thickening with evidence of mild to moderate 1-2+ mitral regurgitation.Normal-sized left ventricle with evidence of concentric left ventricle hypertrophy with normal left ventricle wall motion normal ejection fraction of 65%. RV is normal in size., right ventricle appears to be mildly dilated with RV dysfunction. The estimated right ventricular systolic pressure, 56 mmHg. RAP 15.There is significant biatrial enlargement. Moderate tricuspid regurgitation. current weight 72.37 (increase) kg, dry weight during previous discharge 61.008 BNP 704 (03/20/2025): Ins and Outs 4200/2950/+1250 Plan -Bumex 2 mg IV BID, monitor kidney function, consider increasing to 2 mg BID. -Patient still continues to have significant edema and most of it is in the sacral area. BNP also is 584. Her dry weight also did not change much since admission. Patient's sodium is still 125 and is minimally confused. Heart failure mostly secondary to the severe aortic stenosis in the setting of HFpEF. - Discussed at length with the entire nursing staff regarding the need to do strict input output and keep 1500 mL intake only so the patient can be net negative. Patient has not been net negative since admission. Her hyponatremia will only improve once she is diuresed well. -Recommend aggressive diuresis for now with Bumex 2 mg IV twice daily and fluid restriction of at least 1.5 L/day. -Needs to be net -1 to 2 L/day. -Carvedilol 12.5 BID -K>4 and Mg >2 -SpO <90%, support PRN -Daily Weights, Strict Ins and Outs, Fluid Strictions (1500), Sodium Restriction 2 grams per day #Severe Aortic Stenosis Regarding the severe aortic stenosis patient recommended to follow-up as outpatient with me for further evaluation of severe aortic stenosis but prior to that patient will need complete workup of her left lung pulmonary mass which is measured at close to 2 cm and appears spiculated raising a suspicion for cancer. Family does not want any kind of biopsy at the present point of time. Recommended to follow-up outpatient with oncology possible PET scan if needed. For now continue to treat the CHF exacerbation and afterload reduction. #Atrial fibrillation, rate controlled Past medical history of atrial fibrillation, rate controlled on carvedilol 12.5 mg BID and Eliquis 2.5 mg BID CHADSVAs 4 points Plan -Eliquis on HOLD given thoracentesis, plan resume after procedure if no amelia bleeding noted. -Continue home medicating of Carvedilol -Monitor for signs of bleeding -K>4 and Mg >2 #CAD s/p PCI #Hyperlipidemia Given patient's past medical history of CAD s/p PCI continue patient would benefit from Aspirin and high intensity statins, age not being aplicable fo ACSVD. Lipid: Triglycerides 95, Choleterol 104, LDL 55, HDL 30 Plan -Continue home Atorvastin 40 mg HS, consider high intensivity of AST/ALTs permit -Asprin 81 mg qday #Hypertension Home medication of Benazepril Plan -continue home medication -Hold inf SBP <120 #Hypo-somolar Hypervolemic Hyponatremia Likely in the setting of congestive heart failure as patient appeared to be fluid overloaded upon admission give urine sodium noted to 31, thus greater than >20 mEq of NA, which would place patient in renal failure, but this is unlikely given no failure noted. CT abdomen note dot have left kidney atrophic. Urine sodium likely off given use of diuretis. Hyponatremia likely in the setting of CHF vs Abdomen US noted for Cirrhosis, Although patient does not appear euvolemic urine Na is in range to SIADH levels. Na 125 (03/20/2025)-->Osmolality 256 Na 125 Plan -Fluid restriction -Per Nephrology -Salt Tablet TID #Syncope On arrival patient complaing of syncopal event. Syncopal event likely secondary to acute on chronic chf exacerbation given pleural effusion noted once again as well as history of atrial fibrillation. CT head netative for acute hemorrhage or mass effect. L. and R. Carotid reported 0-10% stenosis. Plan -Treat undelrying, CHF exacerbation -consider orthostatic vitals -continue to monitor BP and heart rate. #CAP, likely GPC #Leukocytosis Bilateral pneumonia noted on chest x-ray Cxr (03/18/2025): Mild to moderate enlargment of cardiac contour Prominent vascular congestion, perihilar basilar edema, consider superimposed pneumonia or right base. Large right and moderate left pleural effusion. Plan -Ceftriaxone (03/10/2025-03/18/2025) and azithromythin (03/10/2025) -MRSA Negative -Pleural Fluid No growthin, pending anaerobic #Macroytic Anemia Likely in the setting of of hydroxyurea treatment for polycythemia likely secondary to bone marrow supression. Previous Folate >24 (12/28/2022). Plan -consider B12 and Folate levels -Continue Folic Acid #Polycythemia Home medication of Hydroxyurea 1000 mg #Gout Allopurinol 300 mg #History of CVA 2018 #Pulmonary mass left midlung Regarding the left pulmonary mass, Dr. Melton consulted once again for possible CT biopsy, declined. Pending thoracentesis and cytology. Patient will need possible PET scan as outpatient to rule out any kind of metastasis if she does not want to have any invasive procedures including a biopsy and recommended to follow-up with oncology as outpatient. Health Maintenance: Disp: Pt is currently admitted to floors for further management of CHF exacerbation and hyponatremia, cardiology following FEN: cardiac diet DVT: compression device Code: DNR - The patient's plan was discussed with attending Dr. Yves Trujillo MD PGY1 Internal Medicine Attending Provider Attestation/Addendum I have personally seen and examined the patient separately on the above date of service and discussed the plan of care with the resident. I reviewed the resident Dr. Allyssa Trujillo consultation progress note and agree with the resident findings and plan in the note above and have also edited the documentation to reflect my findings and plan. Oumar Marinelli M.D. Interventional Cardiology
--- NOTE | 2025-03-20 15:18 | PC.SS ---
SS update: patient will require insurance authorization to return to [facility], per Debo at [facility], the patient's insurance is requesting an updated PT note, PT is aware. Additionally, the patient is pending a pleurx catheter.
--- NOTE | 2025-03-20 16:54 | PD.RESPRO ---
Documentation for date of: 03/20/25 Subjective Subjective Interval history: No acute overnight events reported. Patient seen and examined at bedside this morning. Patient is net +860 mL with total urine output of 1650. Patient is saturating 94% on 3 L oxygen. Today patient states she is not feeling that well, she complains of fatigue. She denies shortness of breath, chest pain or palpitations. Patient was originally planned to undergo repeat thoracentesis, however due to recurrent reaccumulation effusions and probability of malignancy patient requires a Pleurx cath which she is scheduled for morning. Per cardio recommendation Bumex will continue to closely monitor. Vitals are stable labs are reviewed patient's leukocyte count is 20.3 patient already completed week of antibiotics. Sodium is 125 we will continue salt tablets as per nephro recommendation. Patient has no other complaints Exam Vital Signs Temp Pulse Resp BP Pulse Ox O2 Del Method O2 Flow Rate 98.0 F 75 19 128/64 95 Nasal Cannula 2 03/20/25 12:00 03/20/25 12:03/20/25 12:03/20/25 12:03/20/25 12:03/20/25 12:03/20/25 12:00 Narrative Exam GENERAL: A&Ox3 . weak, frail, lethargic appearing elderly female, Not in acute distress NEURO: no focal neurological deficits noted HEENT: Atraumatic, Normocephalic. mucous membranes moist. Eyes open, symmetrical, & clear HEART: systolic murmur heard LUNGS: Clear to auscultation with no wheezing or crackles. ABDOMEN: soft, non-distended, non-tender, bowel sounds heard, no guarding or rebound tenderness SKIN: No Rash or ecchymoses EXTREMITIES: non pitting edema bilaterally in LE, tenderness bilaterally in LE , able to move all 4 extremities, pedal pulses palpated Objective Labs 03/20/25 04:35 03/20/25 04:35 Labs: Laboratory Results - last 24 hr 03/20/25 04:35 WBC 20.3 H RBC 2.86 L Hgb 10.4 L Hct 30.7 L MCV 107 H MCH 36.4 H MCHC 33.9 RDW Std Deviation 61.4 H Plt Count 525 H Neut % (Auto) 89 H Lymph % (Auto) 5 L Kimball % (Auto) 3 Eos % (Auto) 1 Baso % (Auto) 0 Neut # (Auto) 18.0 H Lymph # (Auto) 1.1 Kimball # (Auto) 0.5 Eos # (Auto) 0.2 Baso # (Auto) 0.1 Immature Gran # (Auto) 0.51 H Absolute Nucleated RBC 0.02 H Immature Gran % 3 H Nucleated RBC % 0 PT 13.9 H INR 1.3 APTT 36.2 H Sodium 125 L Potassium 3.8 Chloride 89 L Carbon Dioxide 30.6 Anion Gap 5 L BUN 25 H Creatinine 0.8 Estim Creat Clear Calc 50.8 L eGFR > 60 BUN/Creatinine Ratio 31 H Glucose 118 H Calculated Osmolality 256 L Calcium 8.1 L Magnesium 2.1 ABG Interpretation ABG results: 03/07/25 14:41 VBG pH 7.49 VBG pCO2 37 VBG pO2 43 VBG Base Excess 5 H Quality Measures Quality Measures none Advance care planning discussed with:: patient and child Assessment & Plan Assessment Current Active Medications: Generic Name Dose Route Start Last Admin Trade Name Freq PRN Reason Stop Dose Admin Acetaminophen 650 mg 03/08/25 09:19 03/13/25 16:09 Acetaminophen 325 Mg Tablet PO 04/06/25 19:54 650 mg Q6H PRN Administration pain(1-3) and Fever >100.4 Hydrocodone Bitart/Acetaminophen 1 tab 03/18/25 19:54 03/20/25 11:34 Hydrocodone/Apap 5/325 Tablet PO 03/23/25 19:53 1 tab Q6HR PRN Administration PAIN SCALE 4-10(Mod-Sev Albuterol/Ipratropium 3 ml 03/07/25 19:55 03/20/25 04:46 Albuterol/Ipratropium (Duoneb) Rt Luciana 3 Ml Nebu INH 04/06/25 22:59 3 ml Q4HRRT PRN Administration SOB or Wheezing Allopurinol 300 mg 03/11/25 09:00 03/20/25 10:09 Allopurinol 100 Mg Tablet PO 04/10/25 08:59 300 mg QDAY HEIKE Administration Apixaban 2.5 mg 03/15/25 21:00 03/19/25 09:42 Apixaban 2.5 Mg Tablet PO 04/14/25 20:59 2.5 mg BID HEIKE Administration Benzonatate 100 mg 03/09/25 21:57 03/12/25 13:58 Benzonatate 100 Mg Capsule PO 04/08/25 21:56 100 mg Q8HR PRN Administration COUGH Protocol Bumetanide 2 mg 03/19/25 09:52 03/20/25 05:12 Bumetanide Inj 0.25 Mg/Ml Vial 4 Ml IVP 04/16/25 20:59 2 mg BIDD HEIKE Administration Carvedilol 12.5 mg 03/08/25 08:00 03/20/25 10:08 Carvedilol 12.5 Mg Tablet PO 04/07/25 07:59 12.5 mg BIDWM HEIKE Administration Melatonin 3 mg 03/15/25 21:00 03/19/25 20:35 Melatonin 3 Mg Tablet PO 04/14/25 20:59 3 mg HS HEIKE Administration Montelukast Sodium 10 mg 03/11/25 09:00 03/20/25 10:08 Montelukast Sodium 10 Mg Tablet PO 04/10/25 08:59 10 mg QDAY HEIKE Administration Ondansetron HCl 4 mg 03/07/25 19:55 Ondansetron Inj 2 Mg/Ml Inj 2 Ml IVP 04/06/25 19:54 Q6H PRN NAUSEA OR VOMITING Protocol Pantoprazole Sodium 40 mg 03/08/25 09:00 03/20/25 10:09 Pantoprazole 40 Mg Tablet PO 04/07/25 08:59 40 mg QDAY HEIKE Administration Sodium Chloride 1 gm 03/16/25 09:00 03/20/25 10:07 Sodium Chloride 1 Gm Tablet PO 04/15/25 08:59 1 gm BID HEIKE Administration Tamsulosin HCl 0.4 mg 03/15/25 16:00 03/20/25 10:09 Tamsulosin Hcl 0.4 Mg Capsule PO 04/14/25 15:59 0.4 mg QDAY HEIKE Administration Plan Ms. Mccormack is a 84-year-old female with a past medical history of severe aortic stenosis, CAD status post stents, HFpEF (65% EF on 01/2025), A-fib on Eliquis, CVA 2018, polycythemia vera, pulmonary fibrosis on 2 L home O2 (baseline SpO2 95%), hypertension, gout, chronic UTIs was admitted to the hospital on 03/07/2025 for syncopal episode likely in the setting of severe aortic stenosis and for acute decompensated heart failure exacerbation. #Acute on Chronic hypoxic respiratory failure 2/2 to #Acute decompensated heart failure exacerbation #HFpEF (65% EF on 01/2025) #Pleural effusions, right s/p Thoracentesis, transudative - CXR: Bilateral Pneumonia with right pleural effusions -Pt is s/p Thoracentesis and 1.9L of plural fluid is removed on 03/15/25 -pleural fluid for cell count, protein, LDH transudative, gram stain/culture negative, and cytology pending -Repeat CXR on 03/18 shows Large right and moderate left pleural effusions and Moderate CHF. -Pt continues to have significant dependent edema, and recurrent pleural effusions Plan: -Continue Bumex 2 mg IV BID -Strict ALEX's -Daily weights -Cardiac diet, dysphagia 3 chopped -Fluid restrictions at 1500 -Cardiology following, appreciate recommendations -Patient is scheduled for Pleurx cath placement on -Will continue to monitor #Hypoosmolar Hypervolemic hyponatremia - most likely 2/2 to diuretics versus fluid overload - On admission: Sodium 129, serum osmolality 261 - Patient's diuretics increased to Bumex 1 mg twice daily - Urine electrolytes WNL - Nephrology consulted, appreciate recommendations - Plan: Nephrology following, continue salt tablets BID #Pulmonary mass #Pulmonary nodules #Pulmonary fibrosis - findings concerning for malignancy -chest x-rays reveals 19mm pulmonary mass which appears to be decreasing in size. -CT of chest wo contrast - Heart failure pattern with large right pleural effusion, Pulmonary mass spiculated margins left upper lobe , 6 mm pulmonary nodule right upper lobe, 3 mm pulmonary nodule left upper Plan: -US guided thoracenthesis with cell cytology ordered to rule out malignancy -Per son, family and pt have decided to not undergo lung biopsy as pt is very frail and weak, will wait for cell cytology of the pleural fluid. #Urinary Retention -Pt has urinary retention evident on CT scan of abdomen and pelvis -Bladder scans Q4H showed urinary retention requiring straight cath multiple times a day daily. -On 03/15 trail of tamsulosin was ordered without improvement -Reynolds cath is ordered, pt will be discharged on Reynolds and will need outpatient urology appointment #Syncopal episode- resolved #Severe aortic stenosis #Hx of CAD s/p stents #Hx A-fib, rate controlled On admission Patient came in after having a syncopal episode today in the rehab center where she went to the bathroom. Patient does have a history of severe aortic stenosis seen on echo on previous admission on January and she was supposed to follow-up with cardiology for possible TAVR, Pt follows Dr. Fountain outpatient EKG showed A-fib CHADsVASc 5 Plan: -Resumed home carvedilol 12.5 mg twice daily -Hold home Eliquis 2.5 mg twice daily for procedure on (03/22) -Keep potassium magnesium above 4 and 2 #Community-acquired pneumonia -Pt completed course of antibiotics with Azithromycin on 03/10- 03/16 and ceftriaxone 03/10- 03/19 #Primary Hypertension -Holding home benazepril due to normotension -Pt is on Coreg 12.5mg BID, BP is stable with systolic < 150, will continue to monitor closely and will add another agent if pt become hypertensive #Hx of Gout -Resumed home allopurinol #Macrocytic anemia -Hgb 11.0, Hct 32.6, MCV 108 No active signs of bleeding and hemoglobin stable #Hx of CVA 2018 -no residual deficit Disposition: Patient originally admitted to telemetry for syncopal episode, currently in AHRF 2/2 CHF exacerbation and bilateral pleural effusions Diet: Cardiac, 1800 ml and high protein ensure GI prophylaxis: protonix DVT prophylaxis: Eliquis Code:DNR/DNI Assessment and plan discussed with my attending physician Dr. Matthew Ladd (PGY-1)- Internal medicine resident
[2025-03-20] MEDS: MELATONIN 3 MG TABLET PO (20:05)
[2025-03-21] VITALS (14 sets, daily range): BP systolic 109–140; BP diastolic 56–76; PULSE 70–788; RESP 16–19; TEMP 36.2–36.8; O2SAT 91–97; BMI 11.0
[2025-03-21] MEDS: BUMETANIDE INJ 0.25 MG/ML VIAL 4 ML 2 MG IVP ×2 (05:41→17:44)
[2025-03-21 06:01] LABS: Basophils # (Auto) 0.1 Thou/mm3 (0.0-0.2); Basophils % (Auto) 0 % (0-2.5); Eosinophils # (Auto) 0.1 Thou/mm3 (0.0-0.5); Eosinophils % (Auto) 1 % (0-10); Hematocrit 32.6 % (36.0-46.0); Hemoglobin 11.2 g/dL (12.0-16.0); Immature Granulocytes % (Auto) 3 % (0-0); Lymphocytes # (Auto) 1.1 Thou/mm3 (1.0-4.8); Lymphocytes % (Auto) 5 % (10-50); Mean Corpuscular HGB Conc 34.4 g/dl (31.0-37.0); Mean Corpuscular Hemoglobin 35.3 pg (25.0-35.0); Mean Corpuscular Volume 103 fL (80-100); Monocytes # (Auto) 0.6 Thou/mm3 (0.0-0.8); Monocytes % (Auto) 2 % (0-12); Neutrophils # (Auto) 21.6 Thou/mm3 (1.8-7.7); Neutrophils % (Auto) 90 % (37-80); Nucleated Red Blood Cell # 0.02 Thou/mm3 (0.00-0.00); Nucleated Red Blood Cell % 0 /100 WBC (0); Platelet Count 559 Thou/mm3 (140-440); RDW Standard Deviation 57.9 fL (36.4-46.3); Red Blood Count 3.17 Miln/mm3 (4.00-5.20)
[2025-03-21 06:35] LABS: Anion Gap 9 (7-16); BUN/Creatinine Ratio 29 Ratio (12-20); Blood Urea Nitrogen 23 mg/dL (9-23); Calcium 8.4 mg/dL (8.3-10.6); Chloride 89 mMol/L (98-107); Creatinine (Component) 0.8 mg/dL (0.6-1.3); Glucose 103 mg/dL (74-106); Magnesium 1.8 mg/dL (1.6-2.6); Osmolality,Calculated 257 (275-295); Potassium 4.2 mMol/L (3.4-5.1); Sodium 126 mMol/L (136-145); eGFR > 60 See Note
--- NOTE | 2025-03-21 07:38 | PC.SS ---
Addendum entered by ANGEL Velez 03/21/25 16:11: Rounding note: patient is pending pleurex cath for . Plan is to d/c the patient back to [facility] on Wednesday if insurance authorization is obtained. Debo at [facility] is aware. Addendum entered by ANGEL Velez 03/21/25 09:43: SS update: Debo at [facility] informs insurance will need another PT note from tomorrow for the patient. Updated PT Nohemi, who informs they will see patient daily for PT needs. Original Note: SS follow up: latest PT note and progress notes sent to [facility] via [employer], to submit for insurance authorization for SNF.
[2025-03-21] MEDS: TAMSULOSIN HCL 0.4 MG CAPSULE PO (08:41)
[2025-03-21] MEDS: Magnesium Sulfate 4 GM Ivpb 4 GM/50 ML BAG IV (08:41)
[2025-03-21] MEDS: PANTOPRAZOLE 40 MG TABLET PO (08:41)
[2025-03-21] MEDS: carVEDILOL 12.5 MG TABLET PO ×2 (08:41→17:45)
[2025-03-21] MEDS: SODIUM CHLORIDE 1 GM TABLET PO ×2 (08:42→20:14)
[2025-03-21] MEDS: allopurinoL 100 MG TABLET 300 MG PO (08:42)
[2025-03-21] MEDS: MONTELUKAST SODIUM 10 MG TABLET PO (08:42)
--- NOTE | 2025-03-21 09:39 | ESPR_ITS ---
Documentation for date of: 03/21/25 Subjective Subjective Interval history: Shereen is a 84-year-old female with a past medical history of severe aortic stenosis, CAD status post stents, HFpEF (60-65% on 04/2023), A-fib on Eliquis, CVA 2017, polycythemia vera, pulmonary fibrosis on 2 L home O2 (baseline SpO2 95%), pulmonary mass, hypertension, gout, chronic UTIs who was admitted to [facility] on 03/07/2025 after a syncopal episode. It was noted that patient was recently discharged from hospital in January 2025 and was supposed to get cardiac catheterization and TAVR for aortic stenosis leading to her recurrent respiratory failure. She was recently admitted into rehab after her hospitalization and came again after her syncopal episode. She was taking her medicines as prescribed. 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 Fountain. She does not want aggressive treatment at this time, and is agreeable to getting a thoracentesis, however does not want cardiac catheterization at this time. She endorses about 130 pound weight loss over the past 3 years (unsure if this is true). She says she was 3 years ago from her . She denies being on any SSRIs. She denies having history of low sodium. No other complaints this time. ED Course: Initially patient came in hypertensive and afebrile. Initial labs were remarkable for leukocytosis, low hemoglobin, hyponatremia, hypomagnesemia, and elevated BNP. Patient's imaging included chest x-ray which showed CHF pattern and some possible superimposed pneumonia of both lungs, but is more consistent with pulmonary edema. Additional imaging can have an x-ray which was significant only for arthritic changes, head CT which was unremarkable, and EKG which showed A-fib. 03/20/2025 Patient evaluated at bedside, reported no acute discomfort. Primary team had talked to the patient regarding biopsy of lung mass, radiation oncologist Dr. Linh Lopez also followed the patient, but patient has decided to hold off on any aggressive interventions and testing. Will get thoracentesis for symptomatic relief and fluid will be sent for cytology. Patient has SIADH and CHF, serum sodium fails to improve after adding salt tabs, chart review shows patient is fluid restricted to 1500 cc, but her fluid intake exceeds the regulated amount. Currently on diuresis and volume overload complicating SIADH, recommended further restricting daily fluid intake to 1200 cc, continue with salt tabs. 03/21/2025: Patient evaluated bedside, noted improvement in serum sodium, serum sodium 126, after fluid restriction to 1200 cc. Patient continues to stay on Bumex 2 mg twice daily, in setting of CHF. Continue salt tabs. Sodium 126, K4.2, chloride 89, bicarb 28 BUN 23, creatinine 0.8 Exam Vital Signs Temp Pulse Resp BP Pulse Ox O2 Del Method O2 Flow Rate 97.2 F 79 17 134/63 H 96 Nasal Cannula 4 03/21/25 08:00 03/21/25 08:41 03/21/25 08:00 03/21/25 08:41 03/21/25 08:00 03/21/25 08:00 03/20/25 20:24 Narrative Exam GENERAL: A&Ox3 . weak, frail, lethargic appearing, Not in acute distress NEURO: no focal neurological deficits noted HEENT: Atraumatic, Normocephalic. mucous membranes moist. Eyes open, symmetrical, & clear HEART: systolic murmur heard LUNGS: Clear to auscultation with no wheezing or crackles. ABDOMEN: soft, non-distended, non-tender, bowel sounds heard, no guarding or rebound tenderness SKIN: No Rash or ecchymoses EXTREMITIES: non pitting edema bilaterally in LE, tenderness bilaterally in LE , able to move all 4 extremities, pedal pulses palpated Objective Labs 03/21/25 05:23 03/21/25 05:23 Labs: Laboratory Results - last 24 hr 03/21/25 05:23 WBC 24.0 H RBC 3.17 L Hgb 11.2 L Hct 32.6 L MCV 103 H MCH 35.3 H MCHC 34.4 RDW Std Deviation 57.9 H Plt Count 559 H D Neut % (Auto) 90 H Lymph % (Auto) 5 L [place] % (Auto) 2 Eos % (Auto) 1 Baso % (Auto) 0 Neut # (Auto) 21.6 H Lymph # (Auto) 1.1 [place] # (Auto) 0.6 Eos # (Auto) 0.1 Baso # (Auto) 0.1 Immature Gran # (Auto) 0.60 H Absolute Nucleated RBC 0.02 H Immature Gran % 3 H Nucleated RBC % 0 Sodium 126 L Potassium 4.2 Chloride 89 L Carbon Dioxide 28.0 Anion Gap 9 BUN 23 Creatinine 0.8 Estim Creat Clear Calc 51.0 L eGFR > 60 BUN/Creatinine Ratio 29 H Glucose 103 Calculated Osmolality 257 L Calcium 8.4 Magnesium 1.8 ABG Interpretation ABG results: 03/07/25 14:41 VBG pH 7.49 VBG pCO2 37 VBG pO2 43 VBG Base Excess 5 H Quality Measures Quality Measures none Advance care planning discussed with:: patient Assessment & Plan Assessment Current Active Medications: Generic Name Dose Route Start Last Admin Trade Name Freq PRN Reason Stop Dose Admin Acetaminophen 650 mg 03/08/25 09:19 03/13/25 16:09 Acetaminophen 325 Mg Tablet PO 04/06/25 19:54 650 mg Q6H PRN Administration pain(1-3) and Fever >100.4 Hydrocodone Bitart/Acetaminophen 1 tab 03/18/25 19:54 03/20/25 11:34 Hydrocodone/Apap 5/325 Tablet PO 03/23/25 19:53 1 tab Q6HR PRN Administration PAIN SCALE 4-10(Mod-Sev Albuterol/Ipratropium 3 ml 03/07/25 19:55 03/20/25 04:46 Albuterol/Ipratropium (Duoneb) Rt Luciana 3 Ml Nebu INH 04/06/25 22:59 3 ml Q4HRRT PRN Administration SOB or Wheezing Allopurinol 300 mg 03/11/25 09:00 03/21/25 08:42 Allopurinol 100 Mg Tablet PO 04/10/25 08:59 300 mg QDAY HEIKE Administration Apixaban 2.5 mg 03/15/25 21:00 03/19/25 09:42 Apixaban 2.5 Mg Tablet PO 04/14/25 20:59 2.5 mg BID HEIKE Administration Benzonatate 100 mg 03/09/25 21:57 03/12/25 13:58 Benzonatate 100 Mg Capsule PO 04/08/25 21:56 100 mg Q8HR PRN Administration COUGH Protocol Bumetanide 2 mg 03/19/25 09:52 03/21/25 05:41 Bumetanide Inj 0.25 Mg/Ml Vial 4 Ml IVP 04/16/25 20:59 2 mg BIDD HEIKE Administration Carvedilol 12.5 mg 03/08/25 08:00 03/21/25 08:41 Carvedilol 12.5 Mg Tablet PO 04/07/25 07:59 12.5 mg BIDWM HEIKE Administration Magnesium Sulfate 4 gm in 50 mls @ 12.5 mls/hr 03/21/25 08:14 03/21/25 08:41 Magnesium Sulfate Ivpb IV 03/21/25 12:13 12.5 mls/hr X1 ONE Administration Melatonin 3 mg 03/15/25 21:00 03/20/25 20:05 Melatonin 3 Mg Tablet PO 04/14/25 20:59 3 mg HS HEIKE Administration Montelukast Sodium 10 mg 03/11/25 09:00 03/21/25 08:42 Montelukast Sodium 10 Mg Tablet PO 04/10/25 08:59 10 mg QDAY HEIKE Administration Ondansetron HCl 4 mg 03/07/25 19:55 Ondansetron Inj 2 Mg/Ml Inj 2 Ml IVP 04/06/25 19:54 Q6H PRN NAUSEA OR VOMITING Protocol Pantoprazole Sodium 40 mg 03/08/25 09:00 03/21/25 08:41 Pantoprazole 40 Mg Tablet PO 04/07/25 08:59 40 mg QDAY HEIKE Administration Sodium Chloride 1 gm 03/16/25 09:00 03/21/25 08:42 Sodium Chloride 1 Gm Tablet PO 04/15/25 08:59 1 gm BID HEIKE Administration Tamsulosin HCl 0.4 mg 03/15/25 16:00 03/21/25 08:41 Tamsulosin Hcl 0.4 Mg Capsule PO 04/14/25 15:59 0.4 mg QDAY HEIKE Administration Plan Assessment Shereen is a 84-year-old female with a past medical history of severe aortic stenosis, CAD status post stents, HFpEF (60-65% on 04/2023), A-fib on Eliquis, CVA 2018, polycythemia vera, pulmonary fibrosis on 2 L home O2 (baseline SpO2 95%), pulmonary mass, hypertension, gout, chronic UTIs. #Hypoosmolar hypervolemic hyponatremia #SIADH #CHF Urine sodium normal, urine chloride low, urine potassium normal This is usually unexpected with diuresis with Bumex There could be diuresis resistance or not enough diuretic or the timing of the urine was taken after Bumex was given SIADH as patient's urine sodium is also low Hyponatremia likely related to heart failure and diuresis This could be a combination of water retention with RAAS and heart failure and also diuresis Plan: ? Free water restriction 1200 cc/day ? Daily weights recommended to monitor for volume overload. ? Currently on Bumex 2mg IV BID for management of CHF. ? Salt tabs 1 g twice daily #Acute hypoxic respiratory failure #Community-acquired pneumonia #Pleural effusions, bilateral #Syncopal episode #Acute decompensated heart failure exacerbation #Hx of severe aortic stenosis #Hx of HFpEF (65% EF on 01/2025) #Hx of CAD s/p stents #Hx of A-fib (on Eliquis) #Pulmonary mass, left lung #Hx of polycythemia vera #Hx of pulmonary fibrosis on 2 L home O2 #Hx of gout #Hx of chronic UTIs #Hx of CVA 2017 #Hx of hypertension #Hx of macrocytic anemia Above handeled by primary hospitalist team Patient seen and care discussed with my attending physician, Dr. Last Carmona PGY2 Attending Provider Attestation/Addendum Patient seen and examined with resident physician Dr. Carmona. Note reviewed, agree with findings and recommendations. Patient currently seen in telemetry. Still having some shortness of breath. s/p thoracentesis. Edema improved. Sodium low-salt tablets increased to 2 times daily. 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 Noted white count continues to increase. CHF with hyponatremia portends poor prognosis.
--- NOTE | 2025-03-21 15:23 | CHAP ---
Patient was visited by a Spiritual Care Volunteer on 03/21/2025 between 0900 and 1015 and received comfort, encouragement and/or prayer.
--- NOTE | 2025-03-21 15:24 | PC.NURSE ---
clamped barrios for bladder training
--- NOTE | 2025-03-21 15:36 | ESPR_ITS ---
Documentation for date of: 03/21/25 Subjective Subjective Interval history: No acute overnight events reported. Patient seen and examined at bedside this morning. Patient saturating well on 3 L oxygen. Nasal cannula. Patient states she is doing okay, continues to have mild shortness of breath. Patient is net - 825 with total urine output of 1925. Will try voiding trial today and if able we will remove Barrios catheter. Labs are significant for WBC 24.0 which could be in the setting of malignancy as patient already received course of antibiotics for pneumonia twice in the last 1 month. Patient denies a cough fever or chills. Patient is scheduled to get Pleurx cath tomorrow will send the pleural fluid for cytology. Per cardio recs will continue Bumex 2 mg twice daily and continue fluid restriction with strict I's and O's. Sodium is stable at 126 and electrolytes are repleted. Exam Vital Signs Temp Pulse Resp BP Pulse Ox O2 Del Method O2 Flow Rate 97.5 F 78 16 109/56 L 96 Nasal Cannula 4 03/21/25 12:00 03/21/25 12:43 03/21/25 12:00 03/21/25 12:00 03/21/25 12:00 03/21/25 12:00 03/21/25 12:00 Narrative Exam GENERAL: A&Ox3 . weak, frail, lethargic appearing elderly female, Not in acute distress NEURO: no focal neurological deficits noted HEENT: Atraumatic, Normocephalic. mucous membranes moist. Eyes open, symmetrical, & clear HEART: systolic murmur heard LUNGS: Clear to auscultation with no wheezing or crackles. ABDOMEN: soft, non-distended, non-tender, bowel sounds heard, no guarding or rebound tenderness SKIN: No Rash or ecchymoses EXTREMITIES: non pitting edema bilaterally in LE, tenderness bilaterally in LE , able to move all 4 extremities, pedal pulses palpated Objective Labs 03/21/25 05:23 03/21/25 05:23 Labs: Laboratory Results - last 24 hr 03/21/25 05:23 WBC 24.0 H RBC 3.17 L Hgb 11.2 L Hct 32.6 L MCV 103 H MCH 35.3 H MCHC 34.4 RDW Std Deviation 57.9 H Plt Count 559 H D Neut % (Auto) 90 H Lymph % (Auto) 5 L [facility] % (Auto) 2 Eos % (Auto) 1 Baso % (Auto) 0 Neut # (Auto) 21.6 H Lymph # (Auto) 1.1 [facility] # (Auto) 0.6 Eos # (Auto) 0.1 Baso # (Auto) 0.1 Immature Gran # (Auto) 0.60 H Absolute Nucleated RBC 0.02 H Immature Gran % 3 H Nucleated RBC % 0 Sodium 126 L Potassium 4.2 Chloride 89 L Carbon Dioxide 28.0 Anion Gap 9 BUN 23 Creatinine 0.8 Estim Creat Clear Calc 51.0 L eGFR > 60 BUN/Creatinine Ratio 29 H Glucose 103 Calculated Osmolality 257 L Calcium 8.4 Magnesium 1.8 ABG Interpretation ABG results: 03/07/25 14:41 VBG pH 7.49 VBG pCO2 37 VBG pO2 43 VBG Base Excess 5 H Quality Measures Quality Measures none Advance care planning discussed with:: patient Assessment & Plan Assessment Current Active Medications: Generic Name Dose Route Start Last Admin Trade Name Freq PRN Reason Stop Dose Admin Acetaminophen 650 mg 03/08/25 09:19 03/13/25 16:09 Acetaminophen 325 Mg Tablet PO 04/06/25 19:54 650 mg Q6H PRN Administration pain(1-3) and Fever >100.4 Hydrocodone Bitart/Acetaminophen 1 tab 03/18/25 19:54 03/20/25 11:34 Hydrocodone/Apap 5/325 Tablet PO 03/23/25 19:53 1 tab Q6HR PRN Administration PAIN SCALE 4-10(Mod-Sev Albuterol/Ipratropium 3 ml 03/07/25 19:55 03/20/25 04:46 Albuterol/Ipratropium (Duoneb) Rt Luciana 3 Ml Nebu INH 04/06/25 22:59 3 ml Q4HRRT PRN Administration SOB or Wheezing Allopurinol 300 mg 03/11/25 09:00 03/21/25 08:42 Allopurinol 100 Mg Tablet PO 04/10/25 08:59 300 mg QDAY HEIKE Administration Apixaban 2.5 mg 03/15/25 21:00 03/19/25 09:42 Apixaban 2.5 Mg Tablet PO 04/14/25 20:59 2.5 mg BID HEIKE Administration Benzonatate 100 mg 03/09/25 21:57 03/12/25 13:58 Benzonatate 100 Mg Capsule PO 04/08/25 21:56 100 mg Q8HR PRN Administration COUGH Protocol Bumetanide 2 mg 03/19/25 09:52 03/21/25 05:41 Bumetanide Inj 0.25 Mg/Ml Vial 4 Ml IVP 04/16/25 20:59 2 mg BIDD HEIKE Administration Carvedilol 12.5 mg 03/08/25 08:00 03/21/25 08:41 Carvedilol 12.5 Mg Tablet PO 04/07/25 07:59 12.5 mg BIDWM HEIKE Administration Melatonin 3 mg 03/15/25 21:00 03/20/25 20:05 Melatonin 3 Mg Tablet PO 04/14/25 20:59 3 mg HS HEIKE Administration Montelukast Sodium 10 mg 03/11/25 09:00 03/21/25 08:42 Montelukast Sodium 10 Mg Tablet PO 04/10/25 08:59 10 mg QDAY HEIKE Administration Ondansetron HCl 4 mg 03/07/25 19:55 Ondansetron Inj 2 Mg/Ml Inj 2 Ml IVP 04/06/25 19:54 Q6H PRN NAUSEA OR VOMITING Protocol Pantoprazole Sodium 40 mg 03/08/25 09:00 03/21/25 08:41 Pantoprazole 40 Mg Tablet PO 04/07/25 08:59 40 mg QDAY HEIKE Administration Sodium Chloride 1 gm 03/16/25 09:00 03/21/25 08:42 Sodium Chloride 1 Gm Tablet PO 04/15/25 08:59 1 gm BID HEIKE Administration Tamsulosin HCl 0.4 mg 03/15/25 16:00 03/21/25 08:41 Tamsulosin Hcl 0.4 Mg Capsule PO 04/14/25 15:59 0.4 mg QDAY HEIKE Administration Plan Ms. Mccormack is a 84-year-old female with a past medical history of severe aortic stenosis, CAD status post stents, HFpEF (65% EF on 01/2025), A-fib on Eliquis, CVA 2017, polycythemia vera, pulmonary fibrosis on 2 L home O2 (baseline SpO2 95%), hypertension, gout, chronic UTIs was admitted to the hospital on 03/07/2025 for syncopal episode likely in the setting of severe aortic stenosis and for acute decompensated heart failure exacerbation. #Acute on Chronic hypoxic respiratory failure 2/2 to #Acute decompensated heart failure exacerbation #HFpEF (65% EF in 01/2025) #Pleural effusions, right s/p Thoracentesis, transudative - CXR: Bilateral Pneumonia with right pleural effusions -Pt is s/p Thoracentesis and 1.9L of plural fluid is removed on 03/15/25 -pleural fluid for cell count, protein, LDH transudative, gram stain/culture negative, and cytology pending -Repeat CXR on 03/18 shows Large right and moderate left pleural effusions and Moderate CHF. -Pt continues to have significant dependent edema, and recurrent pleural effusions Plan: -Continue Bumex 2 mg IV BID -Strict ALEX's -Daily weights -Cardiac diet, dysphagia 3 chopped -Fluid restrictions at 1500 -Cardiology following, appreciate recommendations -Patient is scheduled for Pleurx cath placement on -Will continue to monitor #Hypoosmolar Hypervolemic hyponatremia - most likely 2/2 to diuretics versus fluid overload - On admission: Sodium 129, serum osmolality 261 - Patient's diuretics increased to Bumex 2mg twice daily - Urine electrolytes WNL - Nephrology consulted, appreciate recommendations - continue salt tablets BID #Pulmonary mass #Pulmonary nodules #Pulmonary fibrosis - findings concerning for malignancy -chest x-rays reveals 19mm pulmonary mass which appears to be decreasing in size. -CT of chest wo contrast - Heart failure pattern with large right pleural effusion, Pulmonary mass spiculated margins left upper lobe , 6 mm pulmonary nodule right upper lobe, 3 mm pulmonary nodule left upper Plan: -US guided thoracenthesis with cell cytology ordered to rule out malignancy -Per son, family and pt have decided to not undergo lung biopsy as pt is very frail and weak, will wait for cell cytology of the pleural fluid. #Urinary Retention -Pt has urinary retention evident on CT scan of abdomen and pelvis -Bladder scans Q4H showed urinary retention requiring straight cath multiple times a day daily. -On 03/15 trail of tamsulosin was ordered without improvement -Barrios cath is ordered, will do voiding trial to determine if barrios can be removed #Syncopal episode- resolved #Severe aortic stenosis #Hx of CAD s/p stents #Hx A-fib, rate controlled On admission Patient came in after having a syncopal episode today in the rehab center where she went to the bathroom. Patient does have a history of severe aortic stenosis seen on echo on previous admission on January and she was supposed to follow-up with cardiology for possible TAVR, Pt follows Dr. Fountain outpatient EKG showed A-fib [id number] 5 Plan: -Resumed home carvedilol 12.5 mg twice daily -Hold home Eliquis 2.5 mg twice daily for procedure on (03/22) -Keep potassium magnesium above 4 and 2 #Community-acquired pneumonia -Pt completed course of antibiotics with Azithromycin on 03/10- 03/16 and ceftriaxone 03/10- 03/19 #Primary Hypertension -Holding home benazepril due to normotension -Pt is on Coreg 12.5mg BID, BP is stable with systolic < 150, will continue to monitor closely and will add another agent if pt become hypertensive #Hx of Gout -Resumed home allopurinol #Macrocytic anemia -Hgb 11.0, Hct 32.6, MCV 108 No active signs of bleeding and hemoglobin stable #Hx of CVA 2018 -no residual deficit Disposition: Patient originally admitted to telemetry for syncopal episode, currently in AHRF 2/2 CHF exacerbation and bilateral pleural effusions Diet: Cardiac, 1800 ml and high protein ensure GI prophylaxis: protonix daily DVT prophylaxis: Eliquis (on hold for procedure on 03/22) Code:DNR/DNI Assessment and plan discussed with my attending physician Dr. Cookie Ladd (PGY-1)- Internal medicine resident Attending Provider Attestation/Addendum I have discussed and was present for the essential components of the history, physical examination, diagnosis, and treatment plan with the resident. I agree with the patient's care as documented by the resident and amended herein by me. Gabriel Gary DO. Although this document has been carefully reviewed, there may still be some phonetic and other typographical errors. These errors are purely grammatical due to imperfections in the software program and should not be construed in any way to compromise the substance of the patient's medical care during this visit.
--- NOTE | 2025-03-21 17:29 | PC.NURSE ---
unclamped barrios cath for bladder training
--- NOTE | 2025-03-21 17:49 | PC.NURSE ---
clamped barrios cath for bladder training
[2025-03-21] MEDS: HYDROcodone/APAP 5/325 TABLET 1 TAB PO (20:14)
[2025-03-21] MEDS: MELATONIN 3 MG TABLET PO (20:14)
--- NOTE | 2025-03-21 20:26 | ESPR_ITS ---
Documentation for date of: 03/21/25 Subjective Subjective Interval history: Patient is an 84-year-old female with a past medical history of CAD multi-vessel disease status post PCI LAD and RCA (2017), severe aortic stenosis, CHF HFpEF 65% (), chronic atrial fibrillation, history of hypertension, hyperlipidemia, gout history of CVA, interstitial fibrosis, interstitial lung with home oxygen 2 L, disease to the emergency room by EMS on 03/07/2025 with a chief complaint of syncopal episodes and bilateral leg swelling and weakness. Patient was admitted overnight for syncope acute on chronic decompensated heart failure. Nephrology consulted for hyper-osmolar hypo-volemic hyponatremia. Cardiology consulted for CHF exacerbation. 03/20/2025: No overnight events. Patient continues to complain of some shortness of breath and feeling liquid in her lungs. Patient denied palpitations or chest pain. Nephrology recommending salt tablets TID. Continue Bumex 2 mg BID given patient was allowed to drink [address] Melton consulted once again for possible CT biopsy, declined. Pending thoracentesis and cytology. (03/20/2025): Ins and Outs 4200/2950/+1250 03/21/2025 Patient examined at bedside. Patient continues to complain of some shortness of breath. NO pyrexia noted overnight. Eliquis continues to be on hold in the setting of planned thoracentesis tomorrow. Consider cytology send out. Continue Bumex 2 mg IV BID. Ins and Outs 1220/1200/+20. Continue to monitor kidney function. Exam Vital Signs Temp Pulse Resp BP Pulse Ox O2 Del Method O2 Flow Rate 98.1 F 80 17 140/66 H 95 Nasal Cannula 4 03/21/25 16:00 03/21/25 20:00 03/21/25 19:48 03/21/25 17:45 03/21/25 19:48 03/21/25 16:00 03/21/25 19:48 Narrative Exam General Appearance: Alert & Oriented X3, thin female who is lying in bed in no acute distress HEENT: Skull symmetrical and atraumatic. Conjunctivae pale pink and moist. Pupils equal, round, reactive to light and accommodation (PERRL). Cardio: Normal Rate and irregular rhythm with S1 and S2 heart sounds. Systolic Murmur noted. No bruits on carotid auscultation. Trace peripheral edema. Improved upper thigh edema. Lungs: Symmetric with equal expansion. Chest and back non-tender. Breath sound with mild crackles. Abdomen: Non-tender, Non-distended, Normal Reactive Bowel Sounds Neuro: Alert, cooperative, oriented to person, place, and time. Speech clear. CN grossly intact. Upper motor strength 5/5 and Lower motor strength 3/5. Sensation intact. Objective Labs 03/23/25 04:58 03/23/25 04:58 Labs: Laboratory Results - last 24 hr 03/21/25 05:23 WBC 24.0 H RBC 3.17 L Hgb 11.2 L Hct 32.6 L MCV 103 H MCH 35.3 H MCHC 34.4 RDW Std Deviation 57.9 H Plt Count 559 H D Neut % (Auto) 90 H Lymph % (Auto) 5 L [place] % (Auto) 2 Eos % (Auto) 1 Baso % (Auto) 0 Neut # (Auto) 21.6 H Lymph # (Auto) 1.1 [place] # (Auto) 0.6 Eos # (Auto) 0.1 Baso # (Auto) 0.1 Immature Gran # (Auto) 0.60 H Absolute Nucleated RBC 0.02 H Immature Gran % 3 H Nucleated RBC % 0 Sodium 126 L Potassium 4.2 Chloride 89 L Carbon Dioxide 28.0 Anion Gap 9 BUN 23 Creatinine 0.8 Estim Creat Clear Calc 51.0 L eGFR > 60 BUN/Creatinine Ratio 29 H Glucose 103 Calculated Osmolality 257 L Calcium 8.4 Magnesium 1.8 ABG Interpretation ABG results: 03/07/25 14:41 VBG pH 7.49 VBG pCO2 37 VBG pO2 43 VBG Base Excess 5 H Quality Measures Quality Measures none Advance care planning discussed with:: patient Assessment & Plan Assessment Current Active Medications: Generic Name Dose Route Start Last Admin Trade Name Freq PRN Reason Stop Dose Admin Acetaminophen 650 mg 03/08/25 09:19 03/13/25 16:09 Acetaminophen 325 Mg Tablet PO 04/06/25 19:54 650 mg Q6H PRN Administration pain(1-3) and Fever >100.4 Hydrocodone Bitart/Acetaminophen 1 tab 03/18/25 19:54 03/21/25 20:14 Hydrocodone/Apap 5/325 Tablet PO 03/23/25 19:53 1 tab Q6HR PRN Administration PAIN SCALE 4-10(Mod-Sev Albuterol/Ipratropium 3 ml 03/07/25 19:55 03/20/25 04:46 Albuterol/Ipratropium (Duoneb) Rt Luciana 3 Ml Nebu INH 04/06/25 22:59 3 ml Q4HRRT PRN Administration SOB or Wheezing Allopurinol 300 mg 03/11/25 09:00 03/21/25 08:42 Allopurinol 100 Mg Tablet PO 04/10/25 08:59 300 mg QDAY HEIKE Administration Apixaban 2.5 mg 03/15/25 21:00 03/19/25 09:42 Apixaban 2.5 Mg Tablet PO 04/14/25 20:59 2.5 mg BID HEIKE Administration Benzonatate 100 mg 03/09/25 21:57 03/12/25 13:58 Benzonatate 100 Mg Capsule PO 04/08/25 21:56 100 mg Q8HR PRN Administration COUGH Protocol Bumetanide 2 mg 03/19/25 09:52 03/21/25 17:44 Bumetanide Inj 0.25 Mg/Ml Vial 4 Ml IVP 04/16/25 20:59 2 mg BIDD HEIKE Administration Carvedilol 12.5 mg 03/08/25 08:00 03/21/25 17:45 Carvedilol 12.5 Mg Tablet PO 04/07/25 07:59 12.5 mg BIDWM HEIKE Administration Melatonin 3 mg 03/15/25 21:00 03/21/25 20:14 Melatonin 3 Mg Tablet PO 04/14/25 20:59 3 mg HS HEIKE Administration Montelukast Sodium 10 mg 03/11/25 09:00 03/21/25 08:42 Montelukast Sodium 10 Mg Tablet PO 04/10/25 08:59 10 mg QDAY HEIKE Administration Ondansetron HCl 4 mg 03/07/25 19:55 Ondansetron Inj 2 Mg/Ml Inj 2 Ml IVP 04/06/25 19:54 Q6H PRN NAUSEA OR VOMITING Protocol Pantoprazole Sodium 40 mg 03/08/25 09:00 03/21/25 08:41 Pantoprazole 40 Mg Tablet PO 04/07/25 08:59 40 mg QDAY HEIKE Administration Sodium Chloride 1 gm 03/16/25 09:00 03/21/25 20:14 Sodium Chloride 1 Gm Tablet PO 04/15/25 08:59 1 gm BID HEIKE Administration Tamsulosin HCl 0.4 mg 03/15/25 16:00 03/21/25 08:41 Tamsulosin Hcl 0.4 Mg Capsule PO 04/14/25 15:59 0.4 mg QDAY HEIKE Administration Plan Patient is an 84-year-old female with a past medical history of CAD multi-vessel disease status post PCI LAD and RCA (2016), severe aortic stenosis, CHF HFpEF 65% (), chronic atrial fibrillation, history of hypertension, hyperlipidemia, gout history of CVA, interstitial fibrosis, interstitial lung with home oxygen 2 L, disease to the emergency room by EMS on 03/07/2025 with a chief complaint of syncopal episodes who was admitted for acute on chronic CHF exacerbation. #Acute on chronic congestive heart failure #CHF HFrEF EF 65% #Severe calcified aortic stenosis, 3.2 m/s #RSVP 56 mmHg #Pleural effusion status post thoracentesis (03/15/2025) Past medical history of congestive heart failure with sever aortic stenosis and pulmonary arterial hypertension. Patient may not be adherent to fluid restriction and salt restrictions. Patient would benefit from aortic valve replacement given severe aortic stenosis. Peak velocity of 3.2 m/s. Cxr (03/18/2025): Mild to moderate enlargment of cardiac contour Prominent vascular congestion, perihilar basilar edema, consider superimposed pneumonia or right base. Large right and moderate left pleural effusion. Echo (02/10/2025)Aortic root appears mildly dilated.Aortic valve leaflets are heavy calcification appears to have severe calcific aortic stenosis opening appears with only 1 to 2 mm in both parasternal long axis view and apical views.Peak aortic velocity measured 3.2 m/s but was not parallel to the jet most likely Mr. Severe calcific aortic stenosis.Heavy mitral annulus calcification mitral valve thickening with evidence of mild to moderate 1-2+ mitral regurgitation.Normal-sized left ventricle with evidence of concentric left ventricle hypertrophy with normal left ventricle wall motion normal ejection fraction of 65%. RV is normal in size., right ventricle appears to be mildly dilated with RV dysfunction. The estimated right ventricular systolic pressure, 56 mmHg. RAP 15.There is significant biatrial enlargement. Moderate tricuspid regurgitation. current weight 72.37 (increase) kg, dry weight during previous discharge 61.008 BNP 704 Ins and Outs 1220/1200/+20 Cumulative 66229 Plan -Bumex 2 mg IV BID, monitor kidney function -Patient still continues to have significant edema and most of it is in the sacral area. BNP also is 584. Her dry weight also did not change much since admission. Patient's sodium is still 125 and is minimally confused. Heart failure mostly secondary to the severe aortic stenosis in the setting of HFpEF. -Recommend aggressive diuresis for now with Bumex 2 mg IV twice daily and fluid restriction of at least 1.5 L/day. -Needs to be net -1 to 2 L/day. -Carvedilol 12.5 BID -K>4 and Mg >2 -SpO <90%, support PRN -Daily Weights, Strict Ins and Outs, Fluid Strictions (1500), Sodium Restriction 2 grams per day #Severe Aortic Stenosis Regarding the severe aortic stenosis patient recommended to follow-up as outpatient with me for further evaluation of severe aortic stenosis but prior to that patient will need complete workup of her left lung pulmonary mass which is measured at close to 2 cm and appears spiculated raising a suspicion for cancer. Family does not want any kind of biopsy at the present point of time. Recommended to follow-up outpatient with oncology possible PET scan if needed. For now continue to treat the CHF exacerbation and afterload reduction. #Atrial fibrillation, rate controlled Past medical history of atrial fibrillation, rate controlled on carvedilol 12.5 mg BID and Eliquis 2.5 mg BID CHADSVAs 4 points Plan -Eliquis on HOLD given thoracentesis, plan resume after procedure if no amelia bleeding noted. -Continue home medicating of Carvedilol -Monitor for signs of bleeding -K>4 and Mg >2 #CAD s/p PCI #Hyperlipidemia Given patient's past medical history of CAD s/p PCI continue patient would benefit from Aspirin and high intensity statins, age not being aplicable fo ACSVD. Lipid: Triglycerides 95, Choleterol 104, LDL 55, HDL 30 Plan -Continue home Atorvastin 40 mg HS, consider high intensivity of AST/ALTs permit -Asprin 81 mg qday #Hypertension Home medication of Benazepril Plan -continue home medication -Hold inf SBP <120 #Hypo-somolar Hypervolemic Hyponatremia Likely in the setting of congestive heart failure as patient appeared to be fluid overloaded upon admission give urine sodium noted to 31, thus greater than >20 mEq of NA, which would place patient in renal failure, but this is unlikely given no failure noted. CT abdomen note dot have left kidney atrophic. Urine sodium likely off given use of diuretis. Hyponatremia likely in the setting of CHF vs Abdomen US noted for Cirrhosis, Although patient does not appear euvolemic urine Na is in range to SIADH levels. Na 126 osmolarity 257 Plan -Fluid restriction -Per Nephrology -Salt Tablet TID #Syncope On arrival patient complaing of syncopal event. Syncopal event likely secondary to acute on chronic chf exacerbation given pleural effusion noted once again as well as history of atrial fibrillation. CT head netative for acute hemorrhage or mass effect. L. and R. Carotid reported 0-10% stenosis. Plan -Treat underlying, CHF exacerbation -consider orthostatic vitals -continue to monitor BP and heart rate. #CAP, likely GPC #Leukocytosis Bilateral pneumonia noted on chest x-ray Cxr (03/18/2025): Mild to moderate enlargment of cardiac contour Prominent vascular congestion, perihilar basilar edema, consider superimposed pneumonia or right base. Large right and moderate left pleural effusion. Increasing leukocytosis, given pleural effusion, may be contributing. Plan -Ceftriaxone (03/10/2025-03/18/2025) and azithromythin (03/10/2025) -MRSA Negative -Pleural Fluid No growthin, pending anaerobic #Macroytic Anemia Likely in the setting of of hydroxyurea treatment for polycythemia likely secondary to bone marrow supression. Previous Folate >24 (12/28/2022). Plan -consider B12 and Folate levels -Continue Folic Acid #Polycythemia Home medication of Hydroxyurea 1000 mg #Gout Allopurinol 300 mg #History of CVA 2018 #Pulmonary mass left midlung measures actually smaller, 19 mm, compared to 28 mm on February 02, 2025 Health Maintenance: Disp: Pt is currently admitted to floors for further management of CHF exacerbation and hyponatremia, cardiology following FEN: NPO aftermidnight for Planned thoracentesis, Eliquis on hold DVT: compression device Code: DNR - The patient's plan was discussed with attending Dr. Yves Trujillo MD PGY1 Internal Medicine Attending Provider Attestation/Addendum I have personally seen and examined the patient separately on the above date of service and discussed the plan of care with the resident. I reviewed the resident Dr. Allyssa Trujillo consultation progress note and agree with the resident findings and plan in the note above and have also edited the documentation to reflect my findings and plan. Oumar Marinelli M.D. Interventional Cardiology
[2025-03-22] VITALS (16 sets, daily range): BP systolic 115–168; BP diastolic 49–85; PULSE 74–82; RESP 14–21; TEMP 36–36.4; O2SAT 91–100
[2025-03-22] MEDS: BUMETANIDE INJ 0.25 MG/ML VIAL 4 ML 2 MG IVP ×2 (05:26→18:51)
[2025-03-22 06:03] LABS: Basophils # (Auto) 0.1 Thou/mm3 (0.0-0.2); Basophils % (Auto) 0 % (0-2.5); Eosinophils # (Auto) 0.1 Thou/mm3 (0.0-0.5); Eosinophils % (Auto) 1 % (0-10); Hematocrit 30.7 % (36.0-46.0); Hemoglobin 10.7 g/dL (12.0-16.0); Immature Granulocytes % (Auto) 3 % (0-0); Immature Granulocytes Auto 0.65 Thou/mm3 (0.00-0.00); Lymphocytes # (Auto) 1.3 Thou/mm3 (1.0-4.8); Lymphocytes % (Auto) 5 % (10-50); Mean Corpuscular HGB Conc 34.9 g/dl (31.0-37.0); Mean Corpuscular Hemoglobin 35.8 pg (25.0-35.0); Mean Corpuscular Volume 103 fL (80-100); Monocytes # (Auto) 0.6 Thou/mm3 (0.0-0.8); Monocytes % (Auto) 2 % (0-12); Neutrophils # (Auto) 22.6 Thou/mm3 (1.8-7.7); Neutrophils % (Auto) 89 % (37-80); Nucleated Red Blood Cell # 0.04 Thou/mm3 (0.00-0.00); Nucleated Red Blood Cell % 0 /100 WBC (0); Platelet Count 494 Thou/mm3 (140-440); RDW Standard Deviation 57.3 fL (36.4-46.3); Red Blood Count 2.99 Miln/mm3 (4.00-5.20); White Blood Count 25.3 Thou/mm3 (3.6-11.0)
[2025-03-22 06:08] LABS: INR 1.3 (0.9-1.3); Partial Thromboplastin Time 34.7 Seconds (22.0-36.0); Prothrombin Time 13.9 Seconds (9.0-12.2)
[2025-03-22 06:49] LABS: Alanine Aminotransferase < 7 U/L (10-49); Albumin, Serum 2.9 gm/dL (3.4-4.8); Albumin/Globulin Ratio 1.4 (1.2-2.2); Alkaline Phosphatase 50 U/L (46-116); Anion Gap 8 (7-16); Aspartate Amino Transferase 19 U/L (0-34); BUN/Creatinine Ratio 36 Ratio (12-20); Bilirubin,Total 0.6 mg/dL (0.3-1.2); Blood Urea Nitrogen 29 mg/dL (9-23); Calcium 8.3 mg/dL (8.3-10.6); Calcium (Corrected) 9.2 mg/dL (8.5-10.1); Chloride 89 mMol/L (98-107); Creatinine (Component) 0.8 mg/dL (0.6-1.3); Estimated Creatinine Clearance 51.5 mL/min (>60); Globulin 2.1 gm/dL (2.3-3.5); Glucose 109 mg/dL (74-106); Osmolality,Calculated 263 (275-295); Potassium 3.8 mMol/L (3.4-5.1); Sodium 128 mMol/L (136-145); eGFR > 60 See Note
--- NOTE | 2025-03-22 08:00 | XR_ITS ---
Examination: IR fluoroscopically guided Pleurx catheter insertion right hemithorax Ultrasound guided needle access right hemithorax Fluoroscopy AP chest single view Date and time of procedure: March 22, 2025 0902 hours INDICATIONS: Diagnosis large recurrent malignant right pleural effusions Informed consent provided. A timeout was completed verifying correct patient, procedure, site and positioning. Technique: Ultrasound utilized to confirm right pleural fluid Utilizing ultrasonographic guidance successful 21-gauge needle puncture into the right pleural space, ultrasound images recorded and stored. Appropriate area is marked. The patient's site was prepped and draped in sterile fashion Maximal sterile barrier technique utilized, including hand hygiene Local anesthesia was obtained with 1% lidocaine. Low dose protocols were performed. One or more of the following dose reduction techniques were used; automated exposure control, adjustment of the mA and/or KV according to patient size, use of iterative reconstruction technique. Utilizing fluoroscopic guidance 0.35 wire guide is reduced to the needle into the hemithorax followed by dilators and a sheath for placement of a Pleurx catheter Subcutaneous pocket formed in the chest to the entrance site of the sheath Pleurx catheter introduced into the hemithorax in satisfactory position Patient appears in stable condition during this procedure. At completion of the procedure, the patient is in satisfactory condition. Estimated blood loss 2 cc Impression: Successful ultrasound-guided needle access right hemithorax Successful fluoroscopically guided placement Pleurx catheter right hemithorax Fluoroscopy 0.7 minute radiation dose 2.59 milligray, 1 spot fluoroscopic chest film
--- NOTE | 2025-03-22 08:51 | PD.RESPRO ---
Documentation for date of: 03/22/25 Subjective Subjective Interval history: Shereen is a 84-year-old female with a past medical history of severe aortic stenosis, CAD status post stents, HFpEF (60-65% on 04/2023), A-fib on Eliquis, CVA 2017, polycythemia vera, pulmonary fibrosis on 2 L home O2 (baseline SpO2 95%), pulmonary mass, hypertension, gout, chronic UTIs who was admitted to [facility] on 03/07/2025 after a syncopal episode. It was noted that patient was recently discharged from hospital in January 2025 and was supposed to get cardiac catheterization and TAVR for aortic stenosis leading to her recurrent respiratory failure. She was recently admitted into rehab after her hospitalization and came again after her syncopal episode. She was taking her medicines as prescribed. Her manager med surg is Dr. Fountain. She does not want aggressive treatment at this time, and is agreeable to getting a thoracentesis, however does not want cardiac catheterization at this time. She endorses about 130 pound weight loss over the past 3 years (unsure if this is true). She says she was 3 years ago from her . She denies being on any SSRIs. She denies having history of low sodium. No other complaints this time. ED Course: Initially patient came in hypertensive and afebrile. Initial labs were remarkable for leukocytosis, low hemoglobin, hyponatremia, hypomagnesemia, and elevated BNP. Patient's imaging included chest x-ray which showed CHF pattern and some possible superimposed pneumonia of both lungs, but is more consistent with pulmonary edema. Additional imaging can have an x-ray which was significant only for arthritic changes, head CT which was unremarkable, and EKG which showed A-fib. 03/20/2025 Patient evaluated at bedside, reported no acute discomfort. Primary team had talked to the patient regarding biopsy of lung mass, radiation oncologist Dr. Linh Lopez also followed the patient, but patient has decided to hold off on any aggressive interventions and testing. Will get thoracentesis for symptomatic relief and fluid will be sent for cytology. Patient has SIADH and CHF, serum sodium fails to improve after adding salt tabs, chart review shows patient is fluid restricted to 1500 cc, but her fluid intake exceeds the regulated amount. Currently on diuresis and volume overload complicating SIADH, recommended further restricting daily fluid intake to 1200 cc, continue with salt tabs. 03/21/2025: Patient evaluated bedside, noted improvement in serum sodium, serum sodium 126, after fluid restriction to 1200 cc. Patient continues to stay on Bumex 2 mg twice daily, in setting of CHF. Continue salt tabs. Sodium 126, K4.2, chloride 89, bicarb 28 BUN 23, creatinine 0.8 03/22/2025: Patient evaluated bedside, in no acute discomfort, still has persistent lower limb swelling, patient is scheduled to get Pleurx catheter tomorrow. Per her oncologist Dr. Melton's consult note from 03/20/2025 Patient agrees to thoracentesis for comfort but declines biopsy. Patient and son Sammy already has had conversation about receiving just comfort measures via hospice program not wishing cancer treatment or other forms of major care. Continue with fluid restriction, noted improvement in serum sodium with continued fluid restriction. Cardiology following for severe aortic stenosis. Sodium 128, potassium 3.8, BUN 29, creatinine 0.8 Exam Vital Signs Temp Pulse Resp BP Pulse Ox O2 Del Method O2 Flow Rate 97.3 F 80 21 H 140/62 H 95 Nasal Cannula 2 03/22/25 08:00 03/22/25 08:00 03/22/25 08:00 03/22/25 08:00 03/22/25 08:00 03/22/25 08:00 03/22/25 08:00 Narrative Exam General Appearance: Alert & Oriented X3, thin female who is lying in bed in no acute distress HEENT: Skull symmetrical and atraumatic. Conjunctivae pale pink and moist. Pupils equal, round, reactive to light and accommodation (PERRL). Cardio: Normal Rate and irregular rhythm with S1 and S2 heart sounds. Systolic Murmur noted. No bruits on carotid auscultation. Trace peripheral edema. Improved upper thigh edema. Lungs: Symmetric with equal expansion. Chest and back non-tender. Breath sound with mild crackles. Abdomen: Non-tender, Non-distended, Normal Reactive Bowel Sounds Neuro: Alert, cooperative, oriented to person, place, and time. Speech clear. CN grossly intact. Upper motor strength 5/5 and Lower motor strength 3/5. Sensation intact. Objective Labs 03/22/25 05:09 03/22/25 05:09 Labs: Laboratory Results - last 24 hr 03/22/25 05:09 WBC 25.3 H RBC 2.99 L Hgb 10.7 L Hct 30.7 L MCV 103 H MCH 35.8 H MCHC 34.9 RDW Std Deviation 57.3 H Plt Count 494 H D Neut % (Auto) 89 H Lymph % (Auto) 5 L [place] % (Auto) 2 Eos % (Auto) 1 Baso % (Auto) 0 Neut # (Auto) 22.6 H Lymph # (Auto) 1.3 [place] # (Auto) 0.6 Eos # (Auto) 0.1 Baso # (Auto) 0.1 Immature Gran # (Auto) 0.65 H Absolute Nucleated RBC 0.04 H Immature Gran % 3 H Nucleated RBC % 0 PT 13.9 H INR 1.3 APTT 34.7 Sodium 128 L Potassium 3.8 Chloride 89 L Carbon Dioxide 31.0 Anion Gap 8 BUN 29 H Creatinine 0.8 Estim Creat Clear Calc 51.5 L eGFR > 60 BUN/Creatinine Ratio 36 H Glucose 109 H Calculated Osmolality 263 L Calcium 8.3 Corrected Calcium 9.2 Magnesium 2.0 Total Bilirubin 0.6 AST 19 ALT < 7 L Alkaline Phosphatase 50 Total Protein 5.0 L Albumin 2.9 L Globulin 2.1 L Albumin/Globulin Ratio 1.4 ABG Interpretation ABG results: 03/07/25 14:41 VBG pH 7.49 VBG pCO2 37 VBG pO2 43 VBG Base Excess 5 H Quality Measures Quality Measures none Advance care planning discussed with:: patient Assessment & Plan Assessment Current Active Medications: Generic Name Dose Route Start Last Admin Trade Name Freq PRN Reason Stop Dose Admin Acetaminophen 650 mg 03/08/25 09:19 03/13/25 16:09 Acetaminophen 325 Mg Tablet PO 04/06/25 19:54 650 mg Q6H PRN Administration pain(1-3) and Fever >100.4 Hydrocodone Bitart/Acetaminophen 1 tab 03/18/25 19:54 03/21/25 20:14 Hydrocodone/Apap 5/325 Tablet PO 03/23/25 19:53 1 tab Q6HR PRN Administration PAIN SCALE 4-10(Mod-Sev Albuterol/Ipratropium 3 ml 03/07/25 19:55 03/20/25 04:46 Albuterol/Ipratropium (Duoneb) Rt Luciana 3 Ml Nebu INH 04/06/25 22:59 3 ml Q4HRRT PRN Administration SOB or Wheezing Allopurinol 300 mg 03/11/25 09:00 03/21/25 08:42 Allopurinol 100 Mg Tablet PO 04/10/25 08:59 300 mg QDAY HEIKE Administration Apixaban 2.5 mg 03/15/25 21:00 03/19/25 09:42 Apixaban 2.5 Mg Tablet PO 04/14/25 20:59 2.5 mg BID HEIKE Administration Benzonatate 100 mg 03/09/25 21:57 03/12/25 13:58 Benzonatate 100 Mg Capsule PO 04/08/25 21:56 100 mg Q8HR PRN Administration COUGH Protocol Bumetanide 2 mg 03/19/25 09:52 03/22/25 05:26 Bumetanide Inj 0.25 Mg/Ml Vial 4 Ml IVP 04/16/25 20:59 2 mg BIDD HEIKE Administration Carvedilol 12.5 mg 03/08/25 08:00 03/21/25 17:45 Carvedilol 12.5 Mg Tablet PO 04/07/25 07:59 12.5 mg BIDWM HEIKE Administration Melatonin 3 mg 03/15/25 21:00 03/21/25 20:14 Melatonin 3 Mg Tablet PO 04/14/25 20:59 3 mg HS HEIKE Administration Montelukast Sodium 10 mg 03/11/25 09:00 03/21/25 08:42 Montelukast Sodium 10 Mg Tablet PO 04/10/25 08:59 10 mg QDAY HEIKE Administration Ondansetron HCl 4 mg 03/07/25 19:55 Ondansetron Inj 2 Mg/Ml Inj 2 Ml IVP 04/06/25 19:54 Q6H PRN NAUSEA OR VOMITING Protocol Pantoprazole Sodium 40 mg 03/08/25 09:00 03/21/25 08:41 Pantoprazole 40 Mg Tablet PO 04/07/25 08:59 40 mg QDAY HEIKE Administration Sodium Chloride 1 gm 03/16/25 09:00 03/21/25 20:14 Sodium Chloride 1 Gm Tablet PO 04/15/25 08:59 1 gm BID HEIKE Administration Tamsulosin HCl 0.4 mg 03/15/25 16:00 03/21/25 08:41 Tamsulosin Hcl 0.4 Mg Capsule PO 04/14/25 15:59 0.4 mg QDAY HEIKE Administration Plan Assessment Shereen is a 84-year-old female with a past medical history of severe aortic stenosis, CAD status post stents, HFpEF (60-65% on 04/2023), A-fib on Eliquis, CVA 2018, polycythemia vera, pulmonary fibrosis on 2 L home O2 (baseline SpO2 95%), pulmonary mass, hypertension, gout, chronic UTIs. #Hypoosmolar hypervolemic hyponatremia #SIADH #CHF Urine sodium normal, urine chloride low, urine potassium normal This is usually unexpected with diuresis with Bumex There could be diuresis resistance or not enough diuretic or the timing of the urine was taken after Bumex was given SIADH as patient's urine sodium is also low Hyponatremia likely related to heart failure and diuresis This could be a combination of water retention with RAAS and heart failure and also diuresis Plan: ? Free water restriction 1200 cc/day ? Daily weights recommended to monitor for volume overload. ? Currently on Bumex 2mg IV BID for management of CHF. ? Salt tabs 1 g twice daily ? Patient evaluated bedside, in no acute discomfort, still has persistent lower limb swelling, patient is scheduled to get Pleurx catheter tomorrow. Per her oncologist Dr. Melton's consult note from 03/20/2025 Patient agrees to thoracentesis for comfort but declines biopsy. Patient and son Sammy already has had conversation about receiving just comfort measures via hospice program not wishing cancer treatment or other forms of major care. Continue with fluid restriction, noted improvement in serum sodium with continued fluid restriction. Cardiology following for severe aortic stenosis. Sodium 128, potassium 3.8, BUN 29, creatinine 0.8 #Acute hypoxic respiratory failure #Community-acquired pneumonia #Pleural effusions, bilateral #Syncopal episode #Acute decompensated heart failure exacerbation #Hx of severe aortic stenosis #Hx of HFpEF (65% EF on 01/2025) #Hx of CAD s/p stents #Hx of A-fib (on Eliquis) #Pulmonary mass, left lung #Hx of polycythemia vera #Hx of pulmonary fibrosis on 2 L home O2 #Hx of gout #Hx of chronic UTIs #Hx of CVA 2018 #Hx of hypertension #Hx of macrocytic anemia Above handeled by primary hospitalist team Patient seen and care discussed with my attending physician, Dr. Last Carmona PGY2 Attending Provider Attestation/Addendum Patient seen and examined with resident physician Dr. Carmona. Note reviewed, agree with findings and recommendations. Patient currently seen in telemetry. Still having some shortness of breath. s/p thoracentesis. Edema improved. Sodium low-salt tablets increased to 2 times daily. 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 Noted white count continues to increase. Spoke to primary team-patient currently on DNR status. CHF with hyponatremia portends poor prognosis.
--- NOTE | 2025-03-22 09:00 | XR_ITS ---
Examination: Ultrasound-guided needle localization right hemithorax Date and time: March 22, 2025 0937 hours INDICATIONS: Ultrasound access for Pleurx catheter today Technique an findings: Sonographic ultrasound images obtained to confirm right pleural effusion Utilizing ultrasonographic guidance successful 21-gauge needle puncture into the right hemithorax Ultrasound images recorded and stored IMPRESSION: Successful ultrasound-guided needle access right hemithorax pleural fluid
[2025-03-22] MEDS: HEPARIN SOD LOCK SYR 100 UNIT/ML 500 UNIT INTRACATH (09:50)
[2025-03-22] MEDS: fentaNYL CIT INJ 50 mCg/ML AMP 2ML 25 MCG IVP (10:08)
--- NOTE | 2025-03-22 10:35 | PC.SS ---
HUMAN RESOURCES COMMUNICATIONS MANAGER fielded phone call from [facility] resident care manager rn, Diana ; requesting update on patient's status. HUMAN RESOURCES COMMUNICATIONS MANAGER reviewed note and provided update. [facility] confirmed that re-authorization required prior to patient returning to SNF. group rooms coordinator provided number for transportation planner for follow up: .
--- NOTE | 2025-03-22 10:40 | PC.NURSE ---
Pleural drainage system placed in IR. Pt now back in her room. Dressing CDI, no s/s SOB, redness, drainage. Per IR, drained 1400ml out and sent to Cytology.
[2025-03-22] MEDS: POTASSIUM CHLORIDE 20 mEq TABCR PO (10:43)
[2025-03-22] MEDS: allopurinoL 100 MG TABLET 300 MG PO (10:43)
[2025-03-22] MEDS: SODIUM CHLORIDE 1 GM TABLET PO ×2 (10:43→20:40)
[2025-03-22] MEDS: MONTELUKAST SODIUM 10 MG TABLET PO (10:44)
[2025-03-22] MEDS: TAMSULOSIN HCL 0.4 MG CAPSULE PO (10:44)
[2025-03-22] MEDS: PANTOPRAZOLE 40 MG TABLET PO (10:44)
[2025-03-22] MEDS: carVEDILOL 12.5 MG TABLET PO ×2 (10:44→18:50)
--- NOTE | 2025-03-22 11:10 | PC.URM ---
I received a fax from [facility], Linh De La Garza stating she can assist with dc plan. , PH# [phone]. I will em Care Zeg.
[2025-03-22] MEDS: HYDROcodone/APAP 5/325 TABLET 1 TAB PO ×3 (11:52→23:28)
--- NOTE | 2025-03-22 15:08 | PC.SS ---
SS received call from son who explained he has spoken to family and they have decided for pt to return to [facility] for PT and will consider comfort care at a later time. SS has spoken to Debo at [facility] and she is requesting updated inquiry and PT notes for insurance authorization. Insurance authorization is pending.
--- NOTE | 2025-03-22 16:21 | PC.SS ---
LOYD has sent updated inquiry to Debo at [facility] for insurance authorization.
--- NOTE | 2025-03-22 18:29 | PD.RESPRO ---
Documentation for date of: 03/22/25 Subjective Subjective Interval history: No acute overnight events reported. Patient seen and examined at bedside this morning. Patient is status post Pleurx cath placement and 1.4 L of fluid was removed. Patient states she is doing fine and currently has no complaints. Vitals are within normal limits, currently saturating on 2 L oxygen via nasal cannula. Labs are reviewed WBC count is 25.3, hemoglobin is 10.7, hematocrit 30.7. Sodium is 128. Patient continues to tolerate oral diet. Cell cytology of the pleural fluid is pending. Exam Vital Signs Temp Pulse Resp BP Pulse Ox O2 Del Method O2 Flow Rate 97.6 F 82 15 129/49 L 95 Nasal Cannula 2 03/22/25 16:00 03/22/25 16:00 03/22/25 16:00 03/22/25 16:00 03/22/25 16:00 03/22/25 16:00 03/22/25 16:00 Narrative Exam GENERAL: A&Ox3 . weak, frail, lethargic appearing elderly female, Not in acute distress NEURO: no focal neurological deficits noted HEENT: Atraumatic, Normocephalic. mucous membranes moist. Eyes open, symmetrical, & clear HEART: systolic murmur heard LUNGS: Clear to auscultation with no wheezing or crackles. ABDOMEN: soft, non-distended, non-tender, bowel sounds heard, no guarding or rebound tenderness SKIN: No Rash or ecchymoses EXTREMITIES: non pitting edema bilaterally in LE, tenderness bilaterally in LE , able to move all 4 extremities, pedal pulses palpated Objective Labs 03/23/25 04:58 03/23/25 04:58 Labs: Laboratory Results - last 24 hr 03/22/25 05:09 WBC 25.3 H RBC 2.99 L Hgb 10.7 L Hct 30.7 L MCV 103 H MCH 35.8 H MCHC 34.9 RDW Std Deviation 57.3 H Plt Count 494 H D Neut % (Auto) 89 H Lymph % (Auto) 5 L [place] % (Auto) 2 Eos % (Auto) 1 Baso % (Auto) 0 Neut # (Auto) 22.6 H Lymph # (Auto) 1.3 [place] # (Auto) 0.6 Eos # (Auto) 0.1 Baso # (Auto) 0.1 Immature Gran # (Auto) 0.65 H Absolute Nucleated RBC 0.04 H Immature Gran % 3 H Nucleated RBC % 0 PT 13.9 H INR 1.3 APTT 34.7 Sodium 128 L Potassium 3.8 Chloride 89 L Carbon Dioxide 31.0 Anion Gap 8 BUN 29 H Creatinine 0.8 Estim Creat Clear Calc 51.5 L eGFR > 60 BUN/Creatinine Ratio 36 H Glucose 109 H Calculated Osmolality 263 L Calcium 8.3 Corrected Calcium 9.2 Magnesium 2.0 Total Bilirubin 0.6 AST 19 ALT < 7 L Alkaline Phosphatase 50 Total Protein 5.0 L Albumin 2.9 L Globulin 2.1 L Albumin/Globulin Ratio 1.4 ABG Interpretation ABG results: 03/07/25 14:41 VBG pH 7.49 VBG pCO2 37 VBG pO2 43 VBG Base Excess 5 H Quality Measures Quality Measures none Advance care planning discussed with:: patient and child Assessment & Plan Assessment Current Active Medications: Generic Name Dose Route Start Last Admin Trade Name Freq PRN Reason Stop Dose Admin Acetaminophen 650 mg 03/08/25 09:19 03/13/25 16:09 Acetaminophen 325 Mg Tablet PO 04/06/25 19:54 650 mg Q6H PRN Administration pain(1-3) and Fever >100.4 Hydrocodone Bitart/Acetaminophen 1 tab 03/18/25 19:54 03/22/25 17:24 Hydrocodone/Apap 5/325 Tablet PO 03/23/25 19:53 1 tab Q6HR PRN Administration PAIN SCALE 4-10(Mod-Sev Albuterol/Ipratropium 3 ml 03/07/25 19:55 03/20/25 04:46 Albuterol/Ipratropium (Duoneb) Rt Luciana 3 Ml Nebu INH 04/06/25 22:59 3 ml Q4HRRT PRN Administration SOB or Wheezing Allopurinol 300 mg 03/11/25 09:00 03/22/25 10:43 Allopurinol 100 Mg Tablet PO 04/10/25 08:59 300 mg QDAY HEIKE Administration Benzonatate 100 mg 03/09/25 21:57 03/12/25 13:58 Benzonatate 100 Mg Capsule PO 04/08/25 21:56 100 mg Q8HR PRN Administration COUGH Protocol Bumetanide 2 mg 03/19/25 09:52 03/22/25 05:26 Bumetanide Inj 0.25 Mg/Ml Vial 4 Ml IVP 04/16/25 20:59 2 mg BIDD HEIKE Administration Carvedilol 12.5 mg 03/08/25 08:00 03/22/25 10:44 Carvedilol 12.5 Mg Tablet PO 04/07/25 07:59 12.5 mg BIDWM HEIKE Administration Melatonin 3 mg 03/15/25 21:00 03/21/25 20:14 Melatonin 3 Mg Tablet PO 04/14/25 20:59 3 mg HS HEIKE Administration Montelukast Sodium 10 mg 03/11/25 09:00 03/22/25 10:44 Montelukast Sodium 10 Mg Tablet PO 04/10/25 08:59 10 mg QDAY HEIKE Administration Ondansetron HCl 4 mg 03/07/25 19:55 Ondansetron Inj 2 Mg/Ml Inj 2 Ml IVP 04/06/25 19:54 Q6H PRN NAUSEA OR VOMITING Protocol Pantoprazole Sodium 40 mg 03/08/25 09:00 03/22/25 10:44 Pantoprazole 40 Mg Tablet PO 04/07/25 08:59 40 mg QDAY HEIKE Administration Sodium Chloride 1 gm 03/16/25 09:00 03/22/25 10:43 Sodium Chloride 1 Gm Tablet PO 04/15/25 08:59 1 gm BID HEIKE Administration Tamsulosin HCl 0.4 mg 03/15/25 16:00 03/22/25 10:44 Tamsulosin Hcl 0.4 Mg Capsule PO 04/14/25 15:59 0.4 mg QDAY HEIKE Administration Plan Ms. Mccormack is a 84-year-old female with a past medical history of severe aortic stenosis, CAD status post stents, HFpEF (65% EF on 01/2025), A-fib on Eliquis, CVA 2018, polycythemia vera, pulmonary fibrosis on 2 L home O2 (baseline SpO2 95%), hypertension, gout, chronic UTIs was admitted to the hospital on 03/07/2025 for syncopal episode likely in the setting of severe aortic stenosis and for acute decompensated heart failure exacerbation. #Acute on Chronic hypoxic respiratory failure 2/2 to #Acute decompensated heart failure exacerbation #HFpEF (65% EF in 01/2025) #Pleural effusions, right s/p Thoracentesis, transudative - CXR: Bilateral Pneumonia with right pleural effusions -Pt is s/p Thoracentesis and 1.9L of plural fluid is removed on 03/15/25 -pleural fluid for cell count, protein, LDH transudative, gram stain/culture negative, and cytology pending -Repeat CXR on 03/18 shows Large right and moderate left pleural effusions and Moderate CHF. -Pt continues to have significant dependent edema, and recurrent pleural effusions Plan: -Continue Bumex 2 mg IV BID -Strict ALEX's -Daily weights -Cardiac diet, dysphagia 3 chopped -Fluid restrictions at 1500 -Cardiology following, appreciate recommendations -Pleurx cath placement on 03/22 -Pleural fluid cytology pending -Will continue to monitor #Hypoosmolar Hypervolemic hyponatremia - most likely 2/2 to diuretics versus fluid overload - On admission: Sodium 129, serum osmolality 261 - Patient's diuretics increased to Bumex 2mg twice daily - Urine electrolytes WNL - Nephrology consulted, appreciate recommendations - continue salt tablets BID #Pulmonary mass #Pulmonary nodules #Pulmonary fibrosis - findings concerning for malignancy -chest x-rays reveals 19mm pulmonary mass which appears to be decreasing in size. -CT of chest wo contrast - Heart failure pattern with large right pleural effusion, Pulmonary mass spiculated margins left upper lobe , 6 mm pulmonary nodule right upper lobe, 3 mm pulmonary nodule left upper Plan: -US guided thoracenthesis with cell cytology ordered to rule out malignancy -Per son, family and pt have decided to not undergo lung biopsy as pt is very frail and weak, will wait for cell cytology of the pleural fluid. #Urinary Retention -Pt has urinary retention evident on CT scan of abdomen and pelvis -Bladder scans Q4H showed urinary retention requiring straight cath multiple times a day daily. -On 03/15 trail of tamsulosin was ordered without improvement -Barrios cath is ordered, will do voiding trial to determine if barrios can be removed #Syncopal episode- resolved #Severe aortic stenosis #Hx of CAD s/p stents #Hx A-fib, rate controlled On admission Patient came in after having a syncopal episode today in the rehab center where she went to the bathroom. Patient does have a history of severe aortic stenosis seen on echo on previous admission on January and she was supposed to follow-up with cardiology for possible TAVR, Pt follows Dr. Fountain outpatient EKG showed A-fib CHADsVASc 5 Plan: -Resumed home carvedilol 12.5 mg twice daily -Hold home Eliquis 2.5 mg twice daily for procedure on (03/22) -Keep potassium magnesium above 4 and 2 #Community-acquired pneumonia -Pt completed course of antibiotics with Azithromycin on 03/10- 03/16 and ceftriaxone 03/10- 03/19 #Primary Hypertension -Holding home benazepril due to normotension -Pt is on Coreg 12.5mg BID, BP is stable with systolic < 150, will continue to monitor closely and will add another agent if pt become hypertensive #Hx of Gout -Resumed home allopurinol #Macrocytic anemia -Hgb 11.0, Hct 32.6, MCV 108 No active signs of bleeding and hemoglobin stable #Hx of CVA 2018 -no residual deficit Disposition: Patient originally admitted to telemetry for syncopal episode, currently in AHRF 2/2 CHF exacerbation and bilateral pleural effusions Diet: Cardiac, 1800 ml and high protein ensure GI prophylaxis: protonix daily DVT prophylaxis: Eliquis (on hold for procedure on 03/22) Code:DNR/DNI Assessment and plan discussed with my attending physician Dr. Cookie Ladd (PGY-1)- Internal medicine resident Attending Provider Attestation/Addendum I have discussed and was present for the essential components of the history, physical examination, diagnosis, and treatment plan with the resident. I agree with the patient's care as documented by the resident and amended herein by me. Gabriel Gary DO. Patient seen and evaluated in the a.m., no acute events overnight, vital signs stable, patient afebrile, presently on 2 L, SpO2 96%. Pleurx catheter placed today, functioning well, no complications, the patient is experiencing a moderate amount of pain after the procedure. Patient euvolemic, likely discharge tomorrow to SNF if patient continues to improve. Although this document has been carefully reviewed, there may still be some phonetic and other typographical errors. These errors are purely grammatical due to imperfections in the software program and should not be construed in any way to compromise the substance of the patient's medical care during this visit.
--- NOTE | 2025-03-22 20:36 | ESPR_ITS ---
Documentation for date of: 03/22/25 Subjective Subjective Interval history: Patient is an 84-year-old female with a past medical history of CAD multi-vessel disease status post PCI LAD and RCA (2017), severe aortic stenosis, CHF HFpEF 65% (), chronic atrial fibrillation, history of hypertension, hyperlipidemia, gout history of CVA, interstitial fibrosis, interstitial lung with home oxygen 2 L, disease to the emergency room by EMS on 03/07/2025 with a chief complaint of syncopal episodes and bilateral leg swelling and weakness. Patient was admitted overnight for syncope acute on chronic decompensated heart failure. Nephrology consulted for hyper-osmolar hypo-volemic hyponatremia. Cardiology consulted for CHF exacerbation. 03/20/2025: No overnight events. Patient continues to complain of some shortness of breath and feeling liquid in her lungs. Patient denied palpitations or chest pain. Nephrology recommending salt tablets TID. Continue Bumex 2 mg BID given patient was allowed to drink [address] Melton consulted once again for possible CT biopsy, declined. Pending thoracentesis and cytology. (03/20/2025): Ins and Outs 4200/2950/+1250 03/21/2025 Patient examined at bedside. Patient continues to complain of some shortness of breath. NO pyrexia noted overnight. Eliquis continues to be on hold in the setting of planned thoracentesis tomorrow. Consider cytology send out. Continue Bumex 2 mg IV BID. Ins and Outs 1220/1200/+20. Continue to monitor kidney function. 03/22/2025: Patient examined at bedside. Patient continues improve, with trace pheripheral edema and improved upper thigh edema improvement. No chest pain and improved shortness of breath. Patinet scheduled for thoracentesis now s/p pigtail pleural catheter. Consider repeat chest x-ray AM. Exam Vital Signs Temp Pulse Resp BP Pulse Ox O2 Del Method O2 Flow Rate 97.6 F 82 15 129/49 L 95 Nasal Cannula 2 03/22/25 16:00 03/22/25 18:51 03/22/25 16:00 03/22/25 18:51 03/22/25 16:00 03/22/25 16:00 03/22/25 16:00 Narrative Exam General Appearance: Alert & Oriented X3, thin female who is lying in bed in no acute distress HEENT: Skull symmetrical and atraumatic. Conjunctivae pale pink and moist. Pupils equal, round, reactive to light and accommodation (PERRL). Cardio: Normal Rate and irregular rhythm with S1 and S2 heart sounds. Systolic Murmur noted. No bruits on carotid auscultation. Trace peripheral edema. Improved upper thigh edema. Lungs: Symmetric with equal expansion. Chest and back non-tender. Breath sound with mild crackles. Abdomen: Non-tender, Non-distended, Normal Reactive Bowel Sounds Neuro: Alert, cooperative, oriented to person, place, and time. Speech clear. CN grossly intact. Upper motor strength 5/5 and Lower motor strength 3/5. Sensation intact. Objective Labs 03/23/25 04:58 03/23/25 04:58 Labs: Laboratory Results - last 24 hr 03/22/25 05:09 WBC 25.3 H RBC 2.99 L Hgb 10.7 L Hct 30.7 L MCV 103 H MCH 35.8 H MCHC 34.9 RDW Std Deviation 57.3 H Plt Count 494 H D Neut % (Auto) 89 H Lymph % (Auto) 5 L Lewis % (Auto) 2 Eos % (Auto) 1 Baso % (Auto) 0 Neut # (Auto) 22.6 H Lymph # (Auto) 1.3 Lewis # (Auto) 0.6 Eos # (Auto) 0.1 Baso # (Auto) 0.1 Immature Gran # (Auto) 0.65 H Absolute Nucleated RBC 0.04 H Immature Gran % 3 H Nucleated RBC % 0 PT 13.9 H INR 1.3 APTT 34.7 Sodium 128 L Potassium 3.8 Chloride 89 L Carbon Dioxide 31.0 Anion Gap 8 BUN 29 H Creatinine 0.8 Estim Creat Clear Calc 51.5 L eGFR > 60 BUN/Creatinine Ratio 36 H Glucose 109 H Calculated Osmolality 263 L Calcium 8.3 Corrected Calcium 9.2 Magnesium 2.0 Total Bilirubin 0.6 AST 19 ALT < 7 L Alkaline Phosphatase 50 Total Protein 5.0 L Albumin 2.9 L Globulin 2.1 L Albumin/Globulin Ratio 1.4 ABG Interpretation ABG results: 03/07/25 14:41 VBG pH 7.49 VBG pCO2 37 VBG pO2 43 VBG Base Excess 5 H Quality Measures Quality Measures none Advance care planning discussed with:: patient Assessment & Plan Assessment Current Active Medications: Generic Name Dose Route Start Last Admin Trade Name Freq PRN Reason Stop Dose Admin Acetaminophen 650 mg 03/08/25 09:19 03/13/25 16:09 Acetaminophen 325 Mg Tablet PO 04/06/25 19:54 650 mg Q6H PRN Administration pain(1-3) and Fever >100.4 Hydrocodone Bitart/Acetaminophen 1 tab 03/18/25 19:54 03/22/25 17:24 Hydrocodone/Apap 5/325 Tablet PO 03/23/25 19:53 1 tab Q6HR PRN Administration PAIN SCALE 4-10(Mod-Sev Albuterol/Ipratropium 3 ml 03/07/25 19:55 03/20/25 04:46 Albuterol/Ipratropium (Duoneb) Rt Luciana 3 Ml Nebu INH 04/06/25 22:59 3 ml Q4HRRT PRN Administration SOB or Wheezing Allopurinol 300 mg 03/11/25 09:00 03/22/25 10:43 Allopurinol 100 Mg Tablet PO 04/10/25 08:59 300 mg QDAY HEIKE Administration Benzonatate 100 mg 03/09/25 21:57 03/12/25 13:58 Benzonatate 100 Mg Capsule PO 04/08/25 21:56 100 mg Q8HR PRN Administration COUGH Protocol Bumetanide 2 mg 03/19/25 09:52 03/22/25 18:51 Bumetanide Inj 0.25 Mg/Ml Vial 4 Ml IVP 04/16/25 20:59 2 mg BIDD HEIKE Administration Carvedilol 12.5 mg 03/08/25 08:00 03/22/25 18:50 Carvedilol 12.5 Mg Tablet PO 04/07/25 07:59 12.5 mg BIDWM HEIKE Administration Melatonin 3 mg 03/15/25 21:00 03/21/25 20:14 Melatonin 3 Mg Tablet PO 04/14/25 20:59 3 mg HS HEIKE Administration Montelukast Sodium 10 mg 03/11/25 09:00 03/22/25 10:44 Montelukast Sodium 10 Mg Tablet PO 04/10/25 08:59 10 mg QDAY HEIKE Administration Ondansetron HCl 4 mg 03/07/25 19:55 Ondansetron Inj 2 Mg/Ml Inj 2 Ml IVP 04/06/25 19:54 Q6H PRN NAUSEA OR VOMITING Protocol Pantoprazole Sodium 40 mg 03/08/25 09:00 03/22/25 10:44 Pantoprazole 40 Mg Tablet PO 04/07/25 08:59 40 mg QDAY HEIKE Administration Sodium Chloride 1 gm 03/16/25 09:00 03/22/25 10:43 Sodium Chloride 1 Gm Tablet PO 04/15/25 08:59 1 gm BID HEIKE Administration Tamsulosin HCl 0.4 mg 03/15/25 16:00 03/22/25 10:44 Tamsulosin Hcl 0.4 Mg Capsule PO 04/14/25 15:59 0.4 mg QDAY HEIKE Administration Plan Patient is an 84-year-old female with a past medical history of CAD multi-vessel disease status post PCI LAD and RCA (2016), severe aortic stenosis, CHF HFpEF 65% (), chronic atrial fibrillation, history of hypertension, hyperlipidemia, gout history of CVA, interstitial fibrosis, interstitial lung with home oxygen 2 L, disease to the emergency room by EMS on 03/07/2025 with a chief complaint of syncopal episodes who was admitted for acute on chronic CHF exacerbation. #Acute on chronic congestive heart failure #CHF HFrEF EF 65% #Severe calcified aortic stenosis, 3.2 m/s #RSVP 56 mmHg #Pleural effusion status post thoracentesis (03/15/2025) s/p pigtail pleural cath (03/22/2025) Past medical history of congestive heart failure with sever aortic stenosis and pulmonary arterial hypertension. Patient may not be adherent to fluid restriction and salt restrictions. Patient would benefit from aortic valve replacement given severe aortic stenosis. Peak velocity of 3.2 m/s. Cxr (03/18/2025): Mild to moderate enlargment of cardiac contour Prominent vascular congestion, perihilar basilar edema, consider superimposed pneumonia or right base. Large right and moderate left pleural effusion. Echo (02/10/2025)Aortic root appears mildly dilated.Aortic valve leaflets are heavy calcification appears to have severe calcific aortic stenosis opening appears with only 1 to 2 mm in both parasternal long axis view and apical views.Peak aortic velocity measured 3.2 m/s but was not parallel to the jet most likely Mr. Severe calcific aortic stenosis.Heavy mitral annulus calcification mitral valve thickening with evidence of mild to moderate 1-2+ mitral regurgitation.Normal-sized left ventricle with evidence of concentric left ventricle hypertrophy with normal left ventricle wall motion normal ejection fraction of 65%. RV is normal in size., right ventricle appears to be mildly dilated with RV dysfunction. The estimated right ventricular systolic pressure, 56 mmHg. RAP 15.There is significant biatrial enlargement. Moderate tricuspid regurgitation. current weight 72.37 (increase) kg, dry weight during previous discharge 61.008 BNP 704 03/22/2025: 770/1775/-1005 Cumulative 9470 Plan -consider repeat chest X-ray AM -Bumex 2 mg IV BID, monitor kidney function -Patient still continues to have significant edema and most of it is in the sacral area. BNP also is 584. Her dry weight also did not change much since admission. Patient's sodium is still 125 and is minimally confused. Heart failure mostly secondary to the severe aortic stenosis in the setting of HFpEF. -Recommend aggressive diuresis for now with Bumex 2 mg IV twice daily and fluid restriction of at least 1.5 L/day. -Needs to be net -1 to 2 L/day. -Carvedilol 12.5 BID -K>4 and Mg >2 -SpO <90%, support PRN -Daily Weights, Strict Ins and Outs, Fluid Strictions (1500), Sodium Restriction 2 grams per day #Severe Aortic Stenosis Regarding the severe aortic stenosis patient recommended to follow-up as outpatient with me for further evaluation of severe aortic stenosis but prior to that patient will need complete workup of her left lung pulmonary mass which is measured at close to 2 cm and appears spiculated raising a suspicion for cancer. Family does not want any kind of biopsy at the present point of time. Recommended to follow-up outpatient with oncology possible PET scan if needed. For now continue to treat the CHF exacerbation and afterload reduction. #Atrial fibrillation, rate controlled Past medical history of atrial fibrillation, rate controlled on carvedilol 12.5 mg BID and Eliquis 2.5 mg BID CHADSVAs 4 points Plan -Eliquis, consider resuming if no amelia bleeding noted. -Continue home medicating of Carvedilol -Monitor for signs of bleeding -K>4 and Mg >2 #CAD s/p PCI #Hyperlipidemia Given patient's past medical history of CAD s/p PCI continue patient would benefit from Aspirin and high intensity statins, age not being aplicable fo ACSVD. Lipid: Triglycerides 95, Choleterol 104, LDL 55, HDL 30 Plan -Continue home Atorvastin 40 mg HS, consider high intensivity of AST/ALTs permit -Asprin 81 mg qday #Hypertension Home medication of Benazepril Plan -continue home medication -Hold inf SBP <120 #Hypo-somolar Hypervolemic Hyponatremia Likely in the setting of congestive heart failure as patient appeared to be fluid overloaded upon admission give urine sodium noted to 31, thus greater than >20 mEq of NA, which would place patient in renal failure, but this is unlikely given no failure noted. CT abdomen note dot have left kidney atrophic. Urine sodium likely off given use of diuretis. Hyponatremia likely in the setting of CHF vs Abdomen US noted for Cirrhosis, Although patient does not appear euvolemic urine Na is in range to SIADH levels. Per nephrology, salt tablet decreased to BID. (03/21/2025): Na 126 Osmolarity 263 (03/22/2025) Na 128, Osmolarity 263 BUN 29, Cr 0.8, BUN/Cr 36 Plan -Fluid restriction -Per Nephrology -Salt Tablet BID #Syncope, improved On arrival patient complaing of syncopal event. Syncopal event likely secondary to acute on chronic chf exacerbation given pleural effusion noted once again as well as history of atrial fibrillation. CT head netative for acute hemorrhage or mass effect. L. and R. Carotid reported 0-10% stenosis. Plan -Treat underlying, CHF exacerbation -consider orthostatic vitals -continue to monitor BP and heart rate. #CAP, likely GPC #Leukocytosis Bilateral pneumonia noted on chest x-ray Cxr (03/18/2025): Mild to moderate enlargment of cardiac contour Prominent vascular congestion, perihilar basilar edema, consider superimposed pneumonia or right base. Large right and moderate left pleural effusion. Increasing leukocytosis, given pleural effusion, may be contributing. Plan -Ceftriaxone (03/10/2025-03/18/2025) and azithromythin (03/10/2025) -MRSA Negative -Pleural Culture Negative. #Macroytic Anemia Likely in the setting of of hydroxyurea treatment for polycythemia likely secondary to bone marrow supression. Previous Folate >24 (12/28/2022). Plan -consider B12 and Folate levels -Continue Folic Acid #Polycythemia Home medication of Hydroxyurea 1000 mg #Gout Allopurinol 300 mg #History of CVA 2018 #Pulmonary mass left midlung measures actually smaller, 19 mm, compared to 28 mm on February 02, 2025 Health Maintenance: Disp: Pt is currently admitted to floors for further management of CHF exacerbation and hyponatremia, cardiology following FEN: NPO aftermidnight for Planned thoracentesis, Eliquis on hold DVT: compression device Code: DNR - The patient's plan was discussed with attending Dr. Yves Trujillo MD PGY1 Internal Medicine Attending Provider Attestation/Addendum I have personally seen and examined the patient separately on the above date of service and discussed the plan of care with the resident. I reviewed the resident Dr. Allyssa Trujillo consultation progress note and agree with the resident findings and plan in the note above and have also edited the documentation to reflect my findings and plan. Oumar Marinelli M.D. Interventional Cardiology
[2025-03-22] MEDS: MELATONIN 3 MG TABLET PO (20:41)
[2025-03-23] VITALS (12 sets, daily range): BP systolic 98–131; BP diastolic 54–71; PULSE 60–89; RESP 16–18; TEMP 36.1–36.6; O2SAT 92–99; BMI 27.0
[2025-03-23 05:26] LABS: Basophils # (Auto) 0.1 Thou/mm3 (0.0-0.2); Basophils % (Auto) 0 % (0-2.5); Eosinophils # (Auto) 0.1 Thou/mm3 (0.0-0.5); Eosinophils % (Auto) 0 % (0-10); Hematocrit 34.5 % (36.0-46.0); Hemoglobin 11.5 g/dL (12.0-16.0); Immature Granulocytes % (Auto) 3 % (0-0); Immature Granulocytes Auto 0.94 Thou/mm3 (0.00-0.00); Lymphocytes # (Auto) 1.2 Thou/mm3 (1.0-4.8); Lymphocytes % (Auto) 4 % (10-50); Mean Corpuscular HGB Conc 33.3 g/dl (31.0-37.0); Mean Corpuscular Hemoglobin 35.4 pg (25.0-35.0); Mean Corpuscular Volume 106 fL (80-100); Monocytes # (Auto) 0.6 Thou/mm3 (0.0-0.8); Monocytes % (Auto) 2 % (0-12); Neutrophils # (Auto) 29.5 Thou/mm3 (1.8-7.7); Neutrophils % (Auto) 91 % (37-80); Nucleated Red Blood Cell # 0.02 Thou/mm3 (0.00-0.00); Nucleated Red Blood Cell % 0 /100 WBC (0); Platelet Count 571 Thou/mm3 (140-440); RDW Standard Deviation 60.4 fL (36.4-46.3); Red Blood Count 3.25 Miln/mm3 (4.00-5.20); White Blood Count 32.3 Thou/mm3 (3.6-11.0)
[2025-03-23] MEDS: BUMETANIDE INJ 0.25 MG/ML VIAL 4 ML 2 MG IVP (05:32)
[2025-03-23] MEDS: HYDROcodone/APAP 5/325 TABLET 1 TAB PO ×3 (05:41→18:28)
[2025-03-23 05:53] LABS: Alanine Aminotransferase < 7 U/L (10-49); Albumin/Globulin Ratio 1.3 (1.2-2.2); Alkaline Phosphatase 51 U/L (46-116); Anion Gap 8 (7-16); Aspartate Amino Transferase 18 U/L (0-34); BUN/Creatinine Ratio 36 Ratio (12-20); Bilirubin,Total 0.7 mg/dL (0.3-1.2); Blood Urea Nitrogen 29 mg/dL (9-23); Calcium 8.5 mg/dL (8.3-10.6); Calcium (Corrected) 9.3 mg/dL (8.5-10.1); Carbon Dioxide 31.4 mMol/L (20.0-31.0); Chloride 91 mMol/L (98-107); Creatinine (Component) 0.8 mg/dL (0.6-1.3); Estimated Creatinine Clearance 51.5 mL/min (>60); Globulin 2.4 gm/dL (2.3-3.5); Glucose 120 mg/dL (74-106); Magnesium 1.8 mg/dL (1.6-2.6); Osmolality,Calculated 267 (275-295); Potassium 4.3 mMol/L (3.4-5.1); Sodium 130 mMol/L (136-145); Total Protein 5.4 gm/dL (5.7-8.2); eGFR > 60 See Note
[2025-03-23] MEDS: SODIUM CHLORIDE 1 GM TABLET PO (08:48)
[2025-03-23] MEDS: PANTOPRAZOLE 40 MG TABLET PO (08:48)
[2025-03-23] MEDS: MONTELUKAST SODIUM 10 MG TABLET PO (08:48)
[2025-03-23] MEDS: TAMSULOSIN HCL 0.4 MG CAPSULE PO (08:48)
[2025-03-23] MEDS: carVEDILOL 12.5 MG TABLET PO ×2 (08:48→17:12)
[2025-03-23] MEDS: allopurinoL 100 MG TABLET 300 MG PO (08:48)
--- NOTE | 2025-03-23 08:53 | PC.SS ---
Follow up note: Spoke to Debo Edmondson at [facility] insurance is still pending.
--- NOTE | 2025-03-23 09:01 | PC.SS ---
Addendum entered by Marci Villanueva 03/23/25 11:24: SS was informed by Debo at [facility] they have received insurance authorization and can accept pt. SS has spoken to patient's son, Sammy who states he is having difficulty locating his sister who is in charge of patient's finances and is unable to pay for transport. SS has called [employer] who explained pt has to have her own O2 for transportation. Pt is requiring 2 liters of O2. SS has sent OC, patient's facesheet, and ambulance form to [facility]. Transport is setup for 1pm to [facility]. Pt is aware. Bedside nurse, Tiffanie is aware. Shayna DERAS is aware. Sammy, son is aware. Debo from [facility] is aware. Original Note: SS spoke to Keisha from patient's health insurance, who explained inquiry is under review and the medical dermatologist has still not reviewed clinicals. Keisha is aware pt is ready for d/c to [facility] at this time. Insurance authorization is pending.
--- NOTE | 2025-03-23 10:09 | PD.RESPRO ---
Documentation for date of: 03/23/25 Subjective Subjective Interval history: Shereen is a 84-year-old female with a past medical history of severe aortic stenosis, CAD status post stents, HFpEF (60-65% on 04/2023), A-fib on Eliquis, CVA 2017, polycythemia vera, pulmonary fibrosis on 2 L home O2 (baseline SpO2 95%), pulmonary mass, hypertension, gout, chronic UTIs who was admitted to [facility] on 03/07/2025 after a syncopal episode. It was noted that patient was recently discharged from hospital in January 2025 and was supposed to get cardiac catheterization and TAVR for aortic stenosis leading to her recurrent respiratory failure. She was recently admitted into rehab after her hospitalization and came again after her syncopal episode. She was taking her medicines as prescribed. Her bevel gear generator operator is Dr. Fountain. She does not want aggressive treatment at this time, and is agreeable to getting a thoracentesis, however does not want cardiac catheterization at this time. She endorses about 130 pound weight loss over the past 3 years (unsure if this is true). She says she was 3 years ago from her . She denies being on any SSRIs. She denies having history of low sodium. No other complaints this time. ED Course: Initially patient came in hypertensive and afebrile. Initial labs were remarkable for leukocytosis, low hemoglobin, hyponatremia, hypomagnesemia, and elevated BNP. Patient's imaging included chest x-ray which showed CHF pattern and some possible superimposed pneumonia of both lungs, but is more consistent with pulmonary edema. Additional imaging can have an x-ray which was significant only for arthritic changes, head CT which was unremarkable, and EKG which showed A-fib. 03/20/2025 Patient evaluated at bedside, reported no acute discomfort. Primary team had talked to the patient regarding biopsy of lung mass, radiation oncologist Dr. Linh Lopez also followed the patient, but patient has decided to hold off on any aggressive interventions and testing. Will get thoracentesis for symptomatic relief and fluid will be sent for cytology. Patient has SIADH and CHF, serum sodium fails to improve after adding salt tabs, chart review shows patient is fluid restricted to 1500 cc, but her fluid intake exceeds the regulated amount. Currently on diuresis and volume overload complicating SIADH, recommended further restricting daily fluid intake to 1200 cc, continue with salt tabs. 03/21/2025: Patient evaluated bedside, noted improvement in serum sodium, serum sodium 126, after fluid restriction to 1200 cc. Patient continues to stay on Bumex 2 mg twice daily, in setting of CHF. Continue salt tabs. Sodium 126, K4.2, chloride 89, bicarb 28 BUN 23, creatinine 0.8 03/22/2025: Patient evaluated bedside, in no acute discomfort, still has persistent lower limb swelling, patient is scheduled to get Pleurx catheter tomorrow. Per her oncologist Dr. Melton's consult note from 03/20/2025 Patient agrees to thoracentesis for comfort but declines biopsy. Patient and son Sammy already has had conversation about receiving just comfort measures via hospice program not wishing cancer treatment or other forms of major care. Continue with fluid restriction, noted improvement in serum sodium with continued fluid restriction. Cardiology following for severe aortic stenosis. Sodium 128, potassium 3.8, BUN 29, creatinine 0.8 03/23/2025 patient evaluated at the bedside, daughter also present in the room, continued improvement in serum sodium after fluid restriction, patient had only 800 mL of fluid intake yesterday, the patient wanted to have coffee but was hesitating, told the patient she can be a little more liberal with IV fluids, up to 1200 cc/day including all fluids. Urine output adequate. Serum sodium 130, renal function normal BUN 29, creatinine 0.8. Patient does have poor prognosis, currently waiting on cytology report from pleural fluid. Nephrology will sign off on the case at this point. Exam Vital Signs Temp Pulse Resp BP Pulse Ox O2 Del Method O2 Flow Rate 97.3 F 82 18 98/63 95 Room Air 2 03/23/25 08:00 03/23/25 08:48 03/23/25 08:00 03/23/25 08:48 03/23/25 08:00 03/23/25 08:00 03/23/25 07:20 Narrative Exam General Appearance: Alert & Oriented X3, thin female who is lying in bed in no acute distress HEENT: Skull symmetrical and atraumatic. Conjunctivae pale pink and moist. Pupils equal, round, reactive to light and accommodation (PERRL). Cardio: Normal Rate and irregular rhythm with S1 and S2 heart sounds. Systolic Murmur noted. No bruits on carotid auscultation. Trace peripheral edema. Improved upper thigh edema. Lungs: Symmetric with equal expansion. Chest and back non-tender. Breath sound with mild crackles. Abdomen: Non-tender, Non-distended, Normal Reactive Bowel Sounds Neuro: Alert, cooperative, oriented to person, place, and time. Speech clear. CN grossly intact. Upper motor strength 5/5 and Lower motor strength 3/5. Sensation intact. Objective Labs 03/23/25 04:58 03/23/25 04:58 Labs: Laboratory Results - last 24 hr 03/23/25 04:58 WBC 32.3 H D RBC 3.25 L Hgb 11.5 L Hct 34.5 L MCV 106 H MCH 35.4 H MCHC 33.3 RDW Std Deviation 60.4 H Plt Count 571 H D Neut % (Auto) 91 H Lymph % (Auto) 4 L [place] % (Auto) 2 Eos % (Auto) 0 Baso % (Auto) 0 Neut # (Auto) 29.5 H Lymph # (Auto) 1.2 [place] # (Auto) 0.6 Eos # (Auto) 0.1 Baso # (Auto) 0.1 Immature Gran # (Auto) 0.94 H Absolute Nucleated RBC 0.02 H Immature Gran % 3 H Nucleated RBC % 0 Sodium 130 L Potassium 4.3 D Chloride 91 L Carbon Dioxide 31.4 H Anion Gap 8 BUN 29 H Creatinine 0.8 Estim Creat Clear Calc 51.5 L eGFR > 60 BUN/Creatinine Ratio 36 H Glucose 120 H Calculated Osmolality 267 L Calcium 8.5 Corrected Calcium 9.3 Magnesium 1.8 Total Bilirubin 0.7 AST 18 ALT < 7 L Alkaline Phosphatase 51 Total Protein 5.4 L Albumin 3.0 L Globulin 2.4 Albumin/Globulin Ratio 1.3 ABG Interpretation ABG results: 03/07/25 14:41 VBG pH 7.49 VBG pCO2 37 VBG pO2 43 VBG Base Excess 5 H Quality Measures Quality Measures none Advance care planning discussed with:: patient Assessment & Plan Assessment Current Active Medications: Generic Name Dose Route Start Last Admin Trade Name Freq PRN Reason Stop Dose Admin Acetaminophen 650 mg 03/08/25 09:19 03/13/25 16:09 Acetaminophen 325 Mg Tablet PO 04/06/25 19:54 650 mg Q6H PRN Administration pain(1-3) and Fever >100.4 Hydrocodone Bitart/Acetaminophen 1 tab 03/18/25 19:54 03/23/25 05:41 Hydrocodone/Apap 5/325 Tablet PO 03/23/25 19:53 1 tab Q6HR PRN Administration PAIN SCALE 4-10(Mod-Sev Albuterol/Ipratropium 3 ml 03/07/25 19:55 03/20/25 04:46 Albuterol/Ipratropium (Duoneb) Rt Luciana 3 Ml Nebu INH 04/06/25 22:59 3 ml Q4HRRT PRN Administration SOB or Wheezing Allopurinol 300 mg 03/11/25 09:00 03/23/25 08:48 Allopurinol 100 Mg Tablet PO 04/10/25 08:59 300 mg QDAY HEIKE Administration Benzonatate 100 mg 03/09/25 21:57 03/12/25 13:58 Benzonatate 100 Mg Capsule PO 04/08/25 21:56 100 mg Q8HR PRN Administration COUGH Protocol Bumetanide 2 mg 03/19/25 09:52 03/23/25 05:32 Bumetanide Inj 0.25 Mg/Ml Vial 4 Ml IVP 04/16/25 20:59 2 mg BIDD HEIKE Administration Carvedilol 12.5 mg 03/08/25 08:00 03/23/25 08:48 Carvedilol 12.5 Mg Tablet PO 04/07/25 07:59 12.5 mg BIDWM HEIKE Administration Melatonin 3 mg 03/15/25 21:00 03/22/25 20:41 Melatonin 3 Mg Tablet PO 04/14/25 20:59 3 mg HS HEIKE Administration Montelukast Sodium 10 mg 03/11/25 09:00 03/23/25 08:48 Montelukast Sodium 10 Mg Tablet PO 04/10/25 08:59 10 mg QDAY HEIKE Administration Ondansetron HCl 4 mg 03/07/25 19:55 Ondansetron Inj 2 Mg/Ml Inj 2 Ml IVP 04/06/25 19:54 Q6H PRN NAUSEA OR VOMITING Protocol Pantoprazole Sodium 40 mg 03/08/25 09:00 03/23/25 08:48 Pantoprazole 40 Mg Tablet PO 04/07/25 08:59 40 mg QDAY HEIKE Administration Sodium Chloride 1 gm 03/16/25 09:00 03/23/25 08:48 Sodium Chloride 1 Gm Tablet PO 04/15/25 08:59 1 gm BID HEIKE Administration Tamsulosin HCl 0.4 mg 03/15/25 16:00 03/23/25 08:48 Tamsulosin Hcl 0.4 Mg Capsule PO 04/14/25 15:59 0.4 mg QDAY HEIKE Administration Plan Assessment Shereen is a 84-year-old female with a past medical history of severe aortic stenosis, CAD status post stents, HFpEF (60-65% on 04/2023), A-fib on Eliquis, CVA 2017, polycythemia vera, pulmonary fibrosis on 2 L home O2 (baseline SpO2 95%), pulmonary mass, hypertension, gout, chronic UTIs. #Hypoosmolar hypervolemic hyponatremia #SIADH #CHF Urine sodium normal, urine chloride low, urine potassium normal This is usually unexpected with diuresis with Bumex There could be diuresis resistance or not enough diuretic or the timing of the urine was taken after Bumex was given SIADH as patient's urine sodium is also low Hyponatremia likely related to heart failure and diuresis This could be a combination of water retention with RAAS and heart failure and also diuresis Plan: ? Free water restriction 1200 cc/day ? Daily weights recommended to monitor for volume overload. ? Currently on Bumex 2mg IV BID for management of CHF. ? Salt tabs 1 g twice daily - continued improvement in serum sodium after fluid restriction, patient had only 800 mL of fluid intake yesterday, the patient wanted to have coffee but was hesitating, told the patient she can be a little more liberal with IV fluids, up to 1200 cc/day including all fluids. Urine output adequate. Serum sodium 130, renal function normal BUN 29, creatinine 0.8. Patient does have poor prognosis, currently waiting on cytology report from pleural fluid. Nephrology will sign off on the case at this point. #Acute hypoxic respiratory failure #Community-acquired pneumonia #Pleural effusions, bilateral #Syncopal episode #Acute decompensated heart failure exacerbation #Hx of severe aortic stenosis #Hx of HFpEF (65% EF on 01/2025) #Hx of CAD s/p stents #Hx of A-fib (on Eliquis) #Pulmonary mass, left lung #Hx of polycythemia vera #Hx of pulmonary fibrosis on 2 L home O2 #Hx of gout #Hx of chronic UTIs #Hx of CVA 2017 #Hx of hypertension #Hx of macrocytic anemia Above handeled by primary hospitalist team Patient seen and care discussed with my attending physician, Dr. Last Carmona PGY2
--- NOTE | 2025-03-23 10:34 | CHAP ---
Patient was visited by the Spiritual Care Volunteer who prayed for them. (Volunteer was in the hospital from 09:30-10:34).
--- NOTE | 2025-03-23 13:00 | PC.NURSE ---
Report given to ambulance personnel, all v/s stable, pt on 2L nc at time of discharge but has PRN orders, identified that pt had pleurx supplies in room to be taken with pt to SNF.
--- NOTE | 2025-03-23 13:47 | PC.NURSE ---
EVS notified fire extinguisher charger that there were pleurx supplies in room, pleurx supplies placed at nurses station, facility to be contacted.
--- NOTE | 2025-03-23 14:45 | PC.NURSE ---
pt presented to ED via ems for SOB. pt was just dc'd back to [facility] from 3[facility] floor for same issue less than 1 hour ago per ems. pt stable and in no apparent distress. respirations even and unlabored. 02 sats 98% on 02, 20 respirations, bp 116/67, hr 88 and temp 98.1. spoke with med/surg charge nurse and was told pt can go back to room [id number]. no need for ER evaluation.
--- NOTE | 2025-03-23 15:53 | PC.SS ---
Pt was brought back to the hospital due to being on 5 liters and de sating around 70% at [facility], per son. SS spoke to Debo at [facility] who explained pt was de sating on 5 liters of O2 and SNF is only able to accommodate up to 5 liters. Debo explained they can accept pt back once O2 is stable. SS arranged a family meeting with patient's son and physicians. Son is agreeable for pt to be on [facility]. Debo from [facility] is aware. Pt is possible d/c back to [facility] tomorrow. Pt and family are aware.
[2025-03-23] MEDS: BUMETANIDE 0.5 MG TABLET 2 MG PO (17:12)
--- NOTE | 2025-03-23 17:33 | ESPR_ITS ---
Documentation for date of: 03/23/25 Subjective Subjective Interval history: No acute overnight events reported. Patient seen and examined at bedside this morning. Patient continues to use 2 L of oxygen saturating 96 to 97%. Bumex IV was transitioned to oral. Patient was stable to be discharged back to the facility. Ms. Mccormack, was stable for discharge after transitioning, with oxygen saturation levels ranging from 96-97% on 2 L of oxygen, which is her home oxygen. However, after reaching the [facility] ([facility]), her oxygen saturation dropped into the 70s, prompting a return to the hospital. Despite this, her granddaughter, who accompanied her, reported that her saturation improved to the 90s. Ms. Mccormack has consistently communicated her preference to avoid hospitalizations and invasive interventions, including biopsies. She expressed a desire for comfort measures only and requested not to return to the hospital. Goals of care discussion is held with son Sammy, the hospitalist team and social media marketing manager. Following a detailed discussion with her son, [id number], and granddaughter, we reviewed her medical history, prognosis, and the risks and benefits of further aggressive treatments. Given Ms. Mccormack?s wishes and her poor prognosis with multiple complex medical conditions, the family agreed to transition to comfort measures. A POLST form was signed, and the decision was made to keep Ms. Mccormack for observation today in the hospital and will be discharged to SNF tomorrow, focusing on comfort measures only and avoiding any further hospital visits. Exam Vital Signs Temp Pulse Resp BP Pulse Ox O2 Del Method O2 Flow Rate 97.3 F 75 18 112/54 L 95 Room Air 2 03/23/25 08:00 03/23/25 17:12 03/23/25 08:00 03/23/25 17:12 03/23/25 08:00 03/23/25 08:00 03/23/25 07:20 Narrative Exam GENERAL: A&Ox3 . weak, frail, lethargic appearing elderly female, Not in acute distress NEURO: no focal neurological deficits noted HEENT: Atraumatic, Normocephalic. mucous membranes moist. Eyes open, symmetrical, & clear HEART: systolic murmur heard LUNGS: Clear to auscultation with no wheezing or crackles. Right Pleurx cath in place ABDOMEN: soft, non-distended, non-tender, bowel sounds heard, no guarding or rebound tenderness SKIN: No Rash or ecchymoses EXTREMITIES: non pitting edema bilaterally in LE, tenderness bilaterally in LE , able to move all 4 extremities, pedal pulses palpated Objective Labs 03/23/25 04:58 03/23/25 04:58 Labs: Laboratory Results - last 24 hr 03/23/25 04:58 WBC 32.3 H D RBC 3.25 L Hgb 11.5 L Hct 34.5 L MCV 106 H MCH 35.4 H MCHC 33.3 RDW Std Deviation 60.4 H Plt Count 571 H D Neut % (Auto) 91 H Lymph % (Auto) 4 L [place] % (Auto) 2 Eos % (Auto) 0 Baso % (Auto) 0 Neut # (Auto) 29.5 H Lymph # (Auto) 1.2 [place] # (Auto) 0.6 Eos # (Auto) 0.1 Baso # (Auto) 0.1 Immature Gran # (Auto) 0.94 H Absolute Nucleated RBC 0.02 H Immature Gran % 3 H Nucleated RBC % 0 Sodium 130 L Potassium 4.3 D Chloride 91 L Carbon Dioxide 31.4 H Anion Gap 8 BUN 29 H Creatinine 0.8 Estim Creat Clear Calc 51.5 L eGFR > 60 BUN/Creatinine Ratio 36 H Glucose 120 H Calculated Osmolality 267 L Calcium 8.5 Corrected Calcium 9.3 Magnesium 1.8 Total Bilirubin 0.7 AST 18 ALT < 7 L Alkaline Phosphatase 51 Total Protein 5.4 L Albumin 3.0 L Globulin 2.4 Albumin/Globulin Ratio 1.3 ABG Interpretation ABG results: 03/07/25 14:41 VBG pH 7.49 VBG pCO2 37 VBG pO2 43 VBG Base Excess 5 H Quality Measures Quality Measures none Advance care planning discussed with:: patient and child Assessment & Plan Assessment Current Active Medications: Generic Name Dose Route Start Last Admin Trade Name Freq PRN Reason Stop Dose Admin Hydrocodone Bitart/Acetaminophen 1 tab 03/18/25 19:54 03/23/25 12:27 Hydrocodone/Apap 5/325 Tablet PO 03/23/25 19:53 1 tab Q6HR PRN Administration PAIN SCALE 4-10(Mod-Sev Albuterol/Ipratropium 3 ml 03/07/25 19:55 03/20/25 04:46 Albuterol/Ipratropium (Duoneb) Rt Luciana 3 Ml Nebu INH 04/06/25 22:59 3 ml Q4HRRT PRN Administration SOB or Wheezing Allopurinol 300 mg 03/11/25 09:00 03/23/25 08:48 Allopurinol 100 Mg Tablet PO 04/10/25 08:59 300 mg QDAY HEIKE Administration Benzonatate 100 mg 03/09/25 21:57 03/12/25 13:58 Benzonatate 100 Mg Capsule PO 04/08/25 21:56 100 mg Q8HR PRN Administration COUGH Protocol Bumetanide 2 mg 03/23/25 15:45 03/23/25 17:12 Bumetanide 0.5 Mg Tablet PO 04/22/25 15:44 2 mg QDAY HEIKE Administration Carvedilol 12.5 mg 03/08/25 08:00 03/23/25 17:12 Carvedilol 12.5 Mg Tablet PO 04/07/25 07:59 12.5 mg BIDWM HEIKE Administration Melatonin 3 mg 03/15/25 21:00 03/22/25 20:41 Melatonin 3 Mg Tablet PO 04/14/25 20:59 3 mg HS HEIKE Administration Montelukast Sodium 10 mg 03/11/25 09:00 03/23/25 08:48 Montelukast Sodium 10 Mg Tablet PO 04/10/25 08:59 10 mg QDAY HEIKE Administration Pantoprazole Sodium 40 mg 03/08/25 09:00 03/23/25 08:48 Pantoprazole 40 Mg Tablet PO 04/07/25 08:59 40 mg QDAY HEIKE Administration Sodium Chloride 1 gm 03/16/25 09:00 03/23/25 08:48 Sodium Chloride 1 Gm Tablet PO 04/15/25 08:59 1 gm BID HEIKE Administration Tamsulosin HCl 0.4 mg 03/15/25 16:00 03/23/25 08:48 Tamsulosin Hcl 0.4 Mg Capsule PO 04/14/25 15:59 0.4 mg QDAY HEIKE Administration Plan Ms. Mccormack is a 84-year-old female with a past medical history of severe aortic stenosis, CAD status post stents, HFpEF (65% EF on 01/2025), A-fib on Eliquis, CVA 2017, polycythemia vera, pulmonary fibrosis on 2 L home O2 (baseline SpO2 95%), hypertension, gout, chronic UTIs was admitted to the hospital on 03/07/2025 for syncopal episode likely in the setting of severe aortic stenosis and for acute decompensated heart failure exacerbation. #Acute on Chronic hypoxic respiratory failure 2/2 to #Acute decompensated heart failure exacerbation #HFpEF (65% EF in 01/2025) #Pleural effusions, right s/p Thoracentesis, transudative - CXR: Bilateral Pneumonia with right pleural effusions -Pt is s/p Thoracentesis and 1.9L of plural fluid is removed on 03/15/25 -pleural fluid for cell count, protein, LDH transudative, gram stain/culture negative, and cytology pending -Repeat CXR on 03/18 shows Large right and moderate left pleural effusions and Moderate CHF. -Pt continues to have significant dependent edema, and recurrent pleural effusions Plan: -Continue Bumex 2 mg IV BID -Strict ALEX's -Daily weights -Cardiac diet, dysphagia 3 chopped -Fluid restrictions at 1500 -Cardiology following, appreciate recommendations -Pleurx cath placement on 03/22 -Pleural fluid cytology pending -Will continue to monitor #Hypoosmolar Hypervolemic hyponatremia- improved - most likely 2/2 to diuretics versus fluid overload - On admission: Sodium 129, serum osmolality 261 - Patient's diuretics increased to Bumex 2mg twice daily - Urine electrolytes WNL - Nephrology consulted, appreciate recommendations - continue salt tablets BID #Pulmonary mass #Pulmonary nodules #Pulmonary fibrosis - findings concerning for malignancy -chest x-rays reveals 19mm pulmonary mass which appears to be decreasing in size. -CT of chest wo contrast - Heart failure pattern with large right pleural effusion, Pulmonary mass spiculated margins left upper lobe , 6 mm pulmonary nodule right upper lobe, 3 mm pulmonary nodule left upper Plan: -US guided thoracenthesis with cell cytology ordered to rule out malignancy -Per son, family and pt have decided to not undergo lung biopsy as pt is very frail and weak, will wait for cell cytology of the pleural fluid. #Urinary Retention - resolved -Pt has urinary retention evident on CT scan of abdomen and pelvis -Bladder scans Q4H showed urinary retention requiring straight cath multiple times a day daily. -On 03/15 trail of tamsulosin was ordered without improvement -Barrios cath is ordered, will do voiding trial to determine if barrios can be removed #Syncopal episode- resolved #Severe aortic stenosis #Hx of CAD s/p stents #Hx A-fib, rate controlled On admission Patient came in after having a syncopal episode today in the rehab center where she went to the bathroom. Patient does have a history of severe aortic stenosis seen on echo on previous admission on January and she was supposed to follow-up with cardiology for possible TAVR, Pt follows Dr. Fountain outpatient EKG showed A-fib CHADsVASc 5 Plan: -Resumed home carvedilol 12.5 mg twice daily -Hold home Eliquis 2.5 mg twice daily for procedure on (03/22) -Keep potassium magnesium above 4 and 2 #Community-acquired pneumonia -Pt completed course of antibiotics with Azithromycin on 03/10- 03/16 and ceftriaxone 03/10- 03/19 #Primary Hypertension -Holding home benazepril due to normotension -Pt is on Coreg 12.5mg BID, BP is stable with systolic < 150, will continue to monitor closely and will add another agent if pt become hypertensive #Hx of Gout -Resumed home allopurinol #Macrocytic anemia -Hgb 11.0, Hct 32.6, MCV 108 No active signs of bleeding and hemoglobin stable #Hx of CVA 2017 -no residual deficit Disposition: Patient originally admitted to telemetry for syncopal episode, currently in AHRF 2/2 CHF exacerbation and bilateral pleural effusions Diet: Cardiac, 1800 ml and high protein ensure GI prophylaxis: protonix daily DVT prophylaxis: Eliquis Code:DNR/DNI Assessment and plan discussed with my attending physician Dr. Cookie Ladd ([id number]-[id number])- Internal medicine resident Attending Provider Attestation/Addendum I have discussed and was present for the essential components of the history, physical examination, diagnosis, and treatment plan with the resident. I agree with the patient's care as documented by the resident and amended herein by me. Gabriel Gary DO. No acute events overnight, vital signs stable, patient afebrile patient on room air this morning 95%. Pleurx catheter placed yesterday, functioning well, patient's pain well-controlled. The plan today was to discharge the patient to nursing facility which she was on room air however once the patient arrived at SNF after transport, the patient was apparently saturating in the mid 70s needing 5 L of O2. Per the patient's niece who was at the nursing facility, once the patient was placed on the oxygen concentrator and sat up in bed, her O2 requirements decreased, she was on minimal oxygen saturating in the mid 90s, approximately 2 L per the niece, however considering the patient was on 5 L after transport, the nursing facility called EMS to transport the patient right back to the emergency department. The patient's niece apparently asked why and asked if she could stay at the nurse facility however they refused and sent her back. The patient was brought up to her original room, again placed on O2, she was on 4 L at time of arrival however her O2 was readily down titrated to 2 L again with her SpO2 at 99%. We did meet with the family after the patient arrived back to the hospital, the patient's family and the patient herself does not wish to return to the hospital, agreed to comfort measures only status, and a POLST form was signed. The patient has told his numerous times herself that she does not wish to return back to the hospital she does not want any invasive treatment which for her conditions would include a lung biopsy and TAVR, she just wants to be made comfortable. We did fill out a POLST form for the patient, the son agreed, we could have very well sent the patient back to SNF today as she was on room air again at the end of the day however we will wait till tomorrow as the patient has been through a lot today with transport. Of note, per social media marketing manager, the SNF did state they could accommodate up to 10 L with 2 oxygen concentrator's connected together with some type of pigtail connector however we have yet to find one in the hospital. I am worried again once we attempt transport tomorrow, the patient may require more oxygen as her son endorsed that she does get very anxious when moving, even when moving between hospital floors and requiring O2 for short period of time. Will reassess in the morning however the patient is not presently at room air, we will continue diuresis, Bumex 1 mg p.o. twice daily, will likely discharge back to SNF tomorrow Although this document has been carefully reviewed, there may still be some phonetic and other typographical errors. These errors are purely grammatical due to imperfections in the software program and should not be construed in any way to compromise the substance of the patient's medical care during this visit.
--- NOTE | 2025-03-23 22:54 | ESPR_ITS ---
Documentation for date of: 03/23/25 Subjective Subjective Interval history: Patient seen and examined at the bedside. Her oxygen requirement was decreased from 5 L to 2 L via oxygen via nasal cannula after the thoracocentesis. Patient did feel better and primary team did discharge the patient to the SNF. Patient was hypoxic again, hence she was sent back to the hospital for further evaluation. Patient still does have sacral edema which has been noted before and recommend to continue diuresis with 2 mg Bumex twice daily for now and continue fluid restriction of 1.2 L/min. As per the primary team patient and the family do not want any further workup for possible malignancy and which is lung mass measuring 2 cm. Cytology from the pleural fluid is still pending. Discussed with the primary team that patient it will not be a candidate for TAVR also if she is not pursuing any further treatment for her possible malignancy as she will need a full workup and at least need to have a survival rate of 2 years for the TAVR. They do not wish to pursue any kind of oncology consultation for evaluation and prognosis. Patient and family's wishes should be respected and the goal of treatment is now only to help with her breathing and hypoxia and hence recommend to continue the aggressive diuresis. Exam Vital Signs Temp Pulse Resp BP Pulse Ox O2 Del Method O2 Flow Rate 97.2 F 75 18 112/54 L 99 Room Air 2 03/23/25 20:00 03/23/25 20:00 03/23/25 20:00 03/23/25 20:00 03/23/25 20:00 03/23/25 20:00 03/23/25 18:48 Objective Labs 03/23/25 04:58 03/23/25 04:58 Labs: Laboratory Results - last 24 hr 03/23/25 04:58 WBC 32.3 H D RBC 3.25 L Hgb 11.5 L Hct 34.5 L MCV 106 H MCH 35.4 H MCHC 33.3 RDW Std Deviation 60.4 H Plt Count 571 H D Neut % (Auto) 91 H Lymph % (Auto) 4 L [place] % (Auto) 2 Eos % (Auto) 0 Baso % (Auto) 0 Neut # (Auto) 29.5 H Lymph # (Auto) 1.2 [place] # (Auto) 0.6 Eos # (Auto) 0.1 Baso # (Auto) 0.1 Immature Gran # (Auto) 0.94 H Absolute Nucleated RBC 0.02 H Immature Gran % 3 H Nucleated RBC % 0 Sodium 130 L Potassium 4.3 D Chloride 91 L Carbon Dioxide 31.4 H Anion Gap 8 BUN 29 H Creatinine 0.8 Estim Creat Clear Calc 51.5 L eGFR > 60 BUN/Creatinine Ratio 36 H Glucose 120 H Calculated Osmolality 267 L Calcium 8.5 Corrected Calcium 9.3 Magnesium 1.8 Total Bilirubin 0.7 AST 18 ALT < 7 L Alkaline Phosphatase 51 Total Protein 5.4 L Albumin 3.0 L Globulin 2.4 Albumin/Globulin Ratio 1.3 ABG Interpretation ABG results: 03/07/25 14:41 VBG pH 7.49 VBG pCO2 37 VBG pO2 43 VBG Base Excess 5 H Assessment & Plan A&P Narrative 84-year-old female with a past medical history of CAD multi-vessel disease status post PCI LAD and RCA (2016), severe aortic stenosis, CHF HFpEF 65% (), chronic atrial fibrillation, history of hypertension, hyperlipidemia, gout history of CVA, interstitial fibrosis, interstitial lung with home oxygen 2 L, disease to the emergency room by EMS on 03/07/2025 with a chief complaint of syncopal episodes who was admitted for acute on chronic CHF exacerbation. #Acute on chronic congestive heart failure #CHF HFrEF EF 65% #Severe calcified aortic stenosis, 3.2 m/s #RSVP 56 mmHg #Pleural effusion status post thoracentesis (03/15/2025) s/p pigtail pleural cath (03/22/2025) Past medical history of congestive heart failure with sever aortic stenosis and pulmonary arterial hypertension. Patient may not be adherent to fluid restriction and salt restrictions. Patient would benefit from aortic valve replacement given severe aortic stenosis. Peak velocity of 3.2 m/s. Cxr (03/18/2025): Mild to moderate enlargment of cardiac contour Prominent vascular congestion, perihilar basilar edema, consider superimposed pneumonia or right base. Large right and moderate left pleural effusion. Echo (02/10/2025)Aortic root appears mildly dilated.Aortic valve leaflets are heavy calcification appears to have severe calcific aortic stenosis opening appears with only 1 to 2 mm in both parasternal long axis view and apical views.Peak aortic velocity measured 3.2 m/s but was not parallel to the jet most likely Mr. Severe calcific aortic stenosis.Heavy mitral annulus calcification mitral valve thickening with evidence of mild to moderate 1-2+ mitral regurgitation.Normal-sized left ventricle with evidence of concentric left ventricle hypertrophy with normal left ventricle wall motion normal ejection fraction of 65%. RV is normal in size., right ventricle appears to be mildly dilated with RV dysfunction. The estimated right ventricular systolic pressure, 56 mmHg. RAP 15.There is significant biatrial enlargement. Moderate tricuspid regurgitation. current weight 72.37 (increase) kg, dry weight during previous discharge 61.008 BNP 704 03/22/2025: 770/1775/-1005 Cumulative 9470 Plan -consider repeat chest X-ray AM -Bumex 2 mg IV BID, monitor kidney function -Patient still continues to have significant edema and most of it is in the sacral area. BNP also is 584. Her dry weight also did not change much since admission. Patient's sodium is still 125 and is minimally confused. Heart failure mostly secondary to the severe aortic stenosis in the setting of HFpEF. -Recommend aggressive diuresis for now with Bumex 2 mg IV twice daily and fluid restriction of at least 1.2 L/day. -Needs to be net -1 to 2 L/day. -Carvedilol 12.5 BID -K>4 and Mg >2 -SpO <90%, support PRN -Daily Weights, Strict Ins and Outs, Fluid Strictions (1500), Sodium Restriction 2 grams per day #Severe Aortic Stenosis Discussed with the primary team that patient it will not be a candidate for TAVR also if she is not pursuing any further treatment for her possible malignancy as she will need a full workup and at least need to have a survival rate of 2 years for the TAVR. They do not wish to pursue any kind of oncology consultation for evaluation and prognosis. Patient and family's wishes should be respected and the goal of treatment is now only to help with her breathing and hypoxia and hence recommend to continue the aggressive diuresis. #Atrial fibrillation, rate controlled Past medical history of atrial fibrillation, rate controlled on carvedilol 12.5 mg BID and Eliquis 2.5 mg BID CHADSVAs 4 points Plan -Eliquis, consider resuming if no amelia bleeding noted. -Continue home medicating of Carvedilol -Monitor for signs of bleeding -K>4 and Mg >2 #CAD s/p PCI #Hyperlipidemia Given patient's past medical history of CAD s/p PCI continue patient would benefit from Aspirin and high intensity statins, age not being aplicable fo ACSVD. Lipid: Triglycerides 95, Choleterol 104, LDL 55, HDL 30 Plan -Continue home Atorvastin 40 mg HS, consider high intensivity of AST/ALTs permit -Asprin 81 mg qday #Hypertension Home medication of Benazepril Plan -continue home medication -Hold inf SBP <120 #Hypo-somolar Hypervolemic Hyponatremia Likely in the setting of congestive heart failure as patient appeared to be fluid overloaded upon admission give urine sodium noted to 31, thus greater than >20 mEq of NA, which would place patient in renal failure, but this is unlikely given no failure noted. CT abdomen note dot have left kidney atrophic. Urine sodium likely off given use of diuretis. Hyponatremia likely in the setting of CHF vs Abdomen US noted for Cirrhosis, Although patient does not appear euvolemic urine Na is in range to SIADH levels. Per nephrology, salt tablet decreased to BID. (03/21/2025): Na 126 Osmolarity 263 (03/22/2025) Na 128, Osmolarity 263 BUN 29, Cr 0.8, BUN/Cr 36 Plan -Fluid restriction -Per Nephrology -Salt Tablet BID #Syncope, improved On arrival patient complaing of syncopal event. Syncopal event likely secondary to acute on chronic chf exacerbation given pleural effusion noted once again as well as history of atrial fibrillation. CT head netative for acute hemorrhage or mass effect. L. and R. Carotid reported 0-10% stenosis. Plan -Treat underlying, CHF exacerbation -consider orthostatic vitals -continue to monitor BP and heart rate. #CAP, likely GPC #Leukocytosis Bilateral pneumonia noted on chest x-ray Cxr (03/18/2025): Mild to moderate enlargment of cardiac contour Prominent vascular congestion, perihilar basilar edema, consider superimposed pneumonia or right base. Large right and moderate left pleural effusion. Increasing leukocytosis, given pleural effusion, may be contributing. Plan -Ceftriaxone (03/10/2025-03/18/2025) and azithromythin (03/10/2025) -MRSA Negative -Pleural Culture Negative. #Macroytic Anemia Likely in the setting of of hydroxyurea treatment for polycythemia likely secondary to bone marrow supression. Previous Folate >24 (12/28/2022). Plan -consider B12 and Folate levels -Continue Folic Acid #Polycythemia Home medication of Hydroxyurea 1000 mg #Gout Allopurinol 300 mg #History of CVA 2017 #Pulmonary mass left midlung measures actually smaller, 19 mm, compared to 28 mm on February 02, 2025 Health Maintenance: Disp: Pt is currently admitted to floors for further management of CHF exacerbation and hyponatremia, cardiology following FEN: NPO aftermidnight for Planned thoracentesis, Eliquis on hold DVT: compression device Code: DNR Management of rest of the medical conditions as per primary team and other consultants. Thank you for the consult and allowing me to participate in the care of the patient. Cardiology will continue to follow. Oumar Marinelli M.D. Interventional Cardiology Time Spent With Patient Time: Total time spent is greater than 50% in coordination of care (as documented) at patient's floor/unit and/or counseling patient:
[2025-03-24] VITALS (8 sets, daily range): BP systolic 119–137; BP diastolic 52–78; PULSE 76–82; RESP 16–17; TEMP 36.1–36.4; O2SAT 94–99; BMI 27.0
[2025-03-24] MEDS: BUMETANIDE 0.5 MG TABLET 2 MG PO (08:22)
[2025-03-24] MEDS: TAMSULOSIN HCL 0.4 MG CAPSULE PO (08:22)
[2025-03-24] MEDS: allopurinoL 100 MG TABLET 300 MG PO (08:22)
[2025-03-24] MEDS: PANTOPRAZOLE 40 MG TABLET PO (08:23)
[2025-03-24] MEDS: SODIUM CHLORIDE 1 GM TABLET PO (08:23)
[2025-03-24] MEDS: carVEDILOL 12.5 MG TABLET PO (08:23)
[2025-03-24] MEDS: MONTELUKAST SODIUM 10 MG TABLET PO (08:23)
--- NOTE | 2025-03-24 11:14 | PC.NURSE ---
Gave report to [facility]
[2025-03-24] MEDS: ACETAMINOPHEN 325 MG TABLET 650 MG PO (11:44)
--- NOTE | 2025-03-24 12:11 | ESDS_ITS ---
Planned Discharge Date 03/24/25 DS: Providers Provider Date of admission: 03/07/25 19:55 Primary care physician: Burak Hebert MD Admitting Provider: Derick Gamez MD Attending Provider on Admission: Ralph Gary DO Consults: 03/07/25 20:00 Consult to Cardiology Routine Comment: Consulting Provider: Tiffani Fountain 03/08/25 00:04 Referral [place] Routine Comment: 03/08/25 11:03 Referral Physical Therapy Routine Comment: Physician Instructions: 03/10/25 10:27 Referral Physical Therapy Routine Comment: Physician Instructions: 03/12/25 10:19 Referral Physical Therapy Routine Comment: Physician Instructions: 03/13/25 10:51 Consult to Nephrology Routine Comment: Consulting Provider: Jarrett Ni 03/15/25 09:50 Consult to [employer]bearer Routine Comment: US guided right thoracenthesis Consulting Provider: Nando Barrett I 03/20/25 10:28 Consult to Oncology Routine Comment: pulmonary mass and nodules w/ recurrent effusions Consulting Provider: John Melton Attending Provider on DC: Larry Ladd MD Discharging Provider: Larry Ladd MD DS: Diagnosis Problem List Completed Was Problem List Reviewed/Reconciled?: Yes Hospital Course Hospital Course Hospital course: Ms. Mccormack is an 84-year-old female with a past medical history of CAD status post stents, HFpEF (EF 65% on 02/11), A-fib on Eliquis, CVA 2018, polycythemia vera, pulmonary fibrosis on 2 L home O2, hypertension, gout, chronic UTIs presented to [facility] ED on 03/07/2025 after syncopal episode at the nursing facility. Patient was admitted to the hospital for further workup for the syncopal episode likely in the setting of CHF exacerbation and severe aortic stenosis. Patient has an extensive cardiac history for which she follows heel sprayer Dr. Fountain outpatient. Patient initially was deciding on whether to or not undergo TAVR procedure. However during hospitalization Pt did not make any significant improvement despite continuing IV antibiotics for possible recurrent pneumonia or diuretics for CHF exacerbation. Chest x-ray revealed significant pleural effusions for which patient underwent thoracentesis on 03/15/25, and total 1.9 L of fluid was removed and sent for cytology (Pending results). Imaging also revealed a pulmonary mass which patient was aware of however further imaging showed mul tiple pulmonary nodules for which patient and decision maker son Sammy declined to biopsy the masses. Patient continued to have shortness of breath and repeat chest x-ray showed recurrence of the pleural fluids, medicinal chemist is consulted who recommended due to high suspicion of malignancy due to patient's exposure to asbestos for 30 years the pleural effusions would reaccumulate. Patient's family is agreeable and a Pleurx cath was inserted on 03/22/2025. Patient's oxygen requirement is back to her baseline however patient at this time has declined any invasive interventions to continue treatments and declines return to the hospital. Patient is at her baseline of oxygen requirement which is 2 L via nasal cannula saturating above 95%. Patient can be discharged back to SNF. Goals of care is held with patient and family to adhere to patient's wishes. patient does not want to return back to the hospital and would like to be discharged to SNF. POLST form is signed which indicates patient is DNR/DNI and wants comfort measures only without any invasive intervention or hospitalizations. Hospitalization Diagnosis #Acute on Chronic hypoxic respiratory failure 2/ to #Acute decompensated heart failure exacerbation #HFpEF (65% EF in 01/2025) #Pleural effusions, right s/p Thoracentesis, transudative #Hypoosmolar Hypervolemic hyponatremia- improved #Pulmonary mass #Pulmonary nodules #Pulmonary fibrosis #Urinary Retention - resolved #Syncopal episode- resolved #Severe aortic stenosis #Hx of CAD s/p stents #Hx A-fib, rate controlled #Community-acquired pneumonia #Primary Hypertension #Hx of Gout #Macrocytic anemia #Hx of CVA 2018 Assessment and plan discussed with my attending physician Dr. Cookie Ladd (PGY-1)- Internal medicine resident Time Spent with Patient Time attestation: Total time spent providing and/or coordinating discharge services: Time spent: Greater than 30 minutes Exam Vital Signs Temp Pulse Resp BP Pulse Ox O2 Del Method O2 Flow Rate 97.5 F 80 17 137/72 H 98 Room Air 3 03/24/25 08:00 03/24/25 08:23 03/24/25 08:00 03/24/25 08:23 03/24/25 08:00 03/24/25 08:00 03/24/25 07:35 Narrative Exam GENERAL: A&Ox3 . weak, frail, lethargic appearing elderly female, Not in acute distress NEURO: no focal neurological deficits noted HEENT: Atraumatic, Normocephalic. mucous membranes moist. Eyes open, symmetrical, & clear HEART: systolic murmur heard LUNGS: Clear to auscultation with no wheezing or crackles. Right Pleurx cath in place ABDOMEN: soft, non-distended, non-tender, bowel sounds heard, no guarding or rebound tenderness SKIN: No Rash or ecchymoses EXTREMITIES: non pitting edema bilaterally in LE, tenderness bilaterally in LE , able to move all 4 extremities, pedal pulses palpated Discharge Plan Plan Patient Disposition: Xfer Skilled Nsg Fac (SNF) Disposition Comment: [facility] Patient condition on transfer: Stable Care Plan Goals: Discharge recommendations: -Follow up with PCP within 1 week of discharge -Follow up with your Diesel Technology Instructor Dr. Fountain within 2-3 weeks of discharge -Follow up with your Education Coordinator Dr. Robison within 3-4 weeks of discharge -Please have a renal panel bloodwork drawn in 1 week from discharge to monitor electrolyte levels PleurX catheter instructions: -Perform drainage when symptomatic, for example O2 needs are increased -The PleurX catheter is prone to infections, please keep the catheter site cleaned and sanitized -Refer to the following instructions for drainage: [email or web address] Reynolds catheter instructions: -Patient will have Reynolds upon discharge due to bladder retention -Patient has been started on tamsulosin 0.4 mg qday to help with urination -On 03/26, perform bladder training on the patient for about 1 day by clamping for 1 hour, allowing the patient to void by unclamping, then increase clamp to 2 hours, then increase to 4 hours. Ask patient at each interval if they feel bladder fullness before unclamping to let void. Continue with 4 hour clamp intervals and after 24 hours total have passed, remove the Reynolds. Do not continue process more than 24 hours as this puts the patient at risk for UTIs and infections. The Reynolds should be removed by 03/27. -Reynolds can be removed earlier if there is any reason otherwise for removal -If patient continues to have urinary retention, have patient referred to a Urologist Hospital course: -Patient has completed a 1-week course of antibiotics for possible pneumonia -Please follow up with fluid cytology results from [facility] Pathology Medications: -Stop taking mirabegron as this can cause urinary retention -Continue rest of medications as previously prescribed CHF instructions: -Please ensure 1.5L fluid restriction -Please note your weight on the discharge paperwork prior to leaving -Please note weight daily. -If your weight increases by 2 pounds in 1 day or by 5 pounds in a week, call your Diesel Technology Instructor. -If you notice shortness of breath, having to use more pillows to prop your head up when you sleep, waking up short of breath, clothes fitting tighter, swelling your legs, decreased urination, please call. If any symptoms are severe, go to the Emergency Department. -Avoid using medications called NSAIDs (also known as nonsteroidal anti- inflammatory drugs), such as ibuprofen, Motrin, Aleve, Advil, naproxen. Prescriptions/Referrals Prescriptions/Med Rec: Continued allopurinol 300 mg Tablet 300 mg PO QDAY alpha lipoic acid 600 mg Capsule 600 mg PO QDAY omeprazole 40 mg capsule,delayed release(DR/EC) 40 mg PO QDAY cetirizine 10 mg Tablet 10 mg PO QDAY folic acid 1 mg tablet 1 mg PO TID montelukast 10 mg tablet 10 mg PO QDAY benazepril 10 mg tablet 10 mg PO BID PRN (Reason: hypertension) Rx Instructions: sbp >145 cholecalciferol (vitamin D3) [Vitamin D3] 125 mcg (5,000 unit) Tablet 5,000 unit PO QDAY carvedilol 12.5 mg tablet 12.5 mg PO BID nitroglycerin 0.4 mg tablet, sublingual 0.4 mg BUCCAL Q5M PRN (Reason: Chest Pain) Patient Comments: 1 TABLET SUBLINGUAL EVERY 5 MINUTES NEEDED CHEST PAIN MAXIMUM OF 3 DOSES 30 DAYS Eliquis 2.5 mg tablet 2.5 mg PO BID hydroxyurea 500 mg capsule 1,000 mg PO HS guaifenesin 600 mg Tablet Extended Release 600 mg PO BID bumetanide 1 mg tablet 1 mg PO QDAY albuterol sulfate 90 mcg/actuation Hfa Aerosol Inhaler 1 inh INHALATION BID Breztri Aerosphere 160-9-4.8 mcg/actuation HFA aerosol inhaler 2 inh inhalation BID Discontinued mirabegron [Myrbetriq] 50 mg tablet extended release 24 hr 50 mg PO QDAY Referrals: Burak Hebert MD [Primary Care Provider] - Patient/Caregiver Discharge Instructions Discharge Activity: as per physical therapy, activity as tolerated and wear oxygen at all times Other Discharge Activity Instructions:: Please print the following PleurX catheter drainage instructions for the SNF: [email or web address] Education Materials: Chest Lung Problems Dx, Reynolds Catheter Removal, Thoracentesis Dc, Aortic Stenosis, Pulmonary Fibrosis, ED Reynolds Catheter, Care, ED Pulmonary Nodule, Solitary Print Language: Israeli Stand Alone Forms: [facility] Award Info., Patient Portal Info Letter Discharge Order Discharge Orders: Discharge (Routine); Ordered 03/23/25 Ordered By: Larry Ladd Quality Discharge Quality Measures VTE prophylaxis Attestestation Attestation I have discussed and was present for the essential components of the discharge history, physical examination, diagnosis, and discharge treatment plan with the resident. I agree with the patient's discharge care as documented by the resident and amended herein by me. Gabriel Gary, DO. Patient stable today, states she feels well only mild amount of pain from the Pleurx catheter. She was eating breakfast normally on day of discharge. It was documented she was on room air most of the night, and was on 2 L this morning with an SpO2 ranging from 93 to 98%. If the patient gets agitated and her SpO2 drops, is recommended to sit her up in bed, keep her on the oxygen concentrator and she most likely recover with SpO2 in the mid 90s which is where she has resided in the hospital on minimal O2.. We did sign a POLST form yesterday per the patient and her family's request, she will be comfort measures only. Unfortunately inpatient hospice care is not an option due to insurance reasons per our medical social worker. Patient will be discharged on Bumex 1 mg twice daily to manage fluid overload. Patient was stable, on minimal oxygen, tolerating p.o. intake, and afebrile at time of discharge to SNF. The patient understood all discharge instructions, all questions were answered satisfactorily. The patient was instructed to return to the Emergency Department is symptoms worsened or persisted. Although this document has been carefully reviewed, there may still be some phonetic and other typographical errors. These errors are purely grammatical due to imperfections in the software program and should not be construed in any way to compromise the substance of the patient's medical care during this visit.
[2025-03-24] MEDS: hydrOXYzine HCL 25 MG TABLET PO (13:25)
--- NOTE | 2025-03-24 15:05 | PC.SS ---
SS spoke with [employer] Edmondson, confirmed transportation time SS informed medical team transport moved to 1700 SS received call from [place]; moved transportation back to 1700 SS informed medical team SS completed [facility] for [place] transportation; transportation time set for 1600 SS spoke with [facility], fax was not received via [facility] as they do not have access to the upload documents on instant messaging SS spoke wtih CESAR Edmondson, confirmed pt discharge SS spoke to eric Christianson, confirmed pt will discharge to [facility] SS confirmed pt to discharge
== END 2025-03-24 17:31 | disposition skilled nursing facility (03) | DRG 291 ==
LOC: SERX 17:38 → SERHOLD 20:17 → S3NX 23:38 → S3SX 03-08 06:08 → S3NX 03-14 17:54 → S2NX 03-15 05:23 → S3NX 03-16 16:38
PROVIDERS: Internal Medicine; Internal Medicine Cardiovascular Disease; Student in an Organized Health Care Education/Training Program; Admitting Provider Student in an Organized Health Care Education/Training Program; Emergency Provider Emergency Medicine; PCP Specialist; Visit Provider Student in an Organized Health Care Education/Training Program
DX: I11.0 Hypertensive heart disease with heart failure (principal); I50.43 Acute on chronic combined systolic (congestive) and diastolic (congestive) heart failure; J18.9 Pneumonia, unspecified organism; J96.21 Acute and chronic respiratory failure with hypoxia; E22.2 Syndrome of inappropriate secretion of antidiuretic hormone; I48.20 Chronic atrial fibrillation, unspecified; N13.30 Unspecified hydronephrosis; N17.9 Acute kidney failure, unspecified; J91.8 Pleural effusion in other conditions classified elsewhere; M10.9 Gout, unspecified; R55 Syncope and collapse; J84.10 Pulmonary fibrosis, unspecified; I35.0 Nonrheumatic aortic (valve) stenosis; Z95.5 Presence of coronary angioplasty implant and graft; I25.10 Atherosclerotic heart disease of native coronary artery without angina pectoris; Z99.81 Dependence on supplemental oxygen; Z86.73 Personal history of transient ischemic attack (TIA), and cerebral infarction without residual deficits; D45 Polycythemia vera; Z79.01 Long term (current) use of anticoagulants; I48.91 Unspecified atrial fibrillation; E83.42 Hypomagnesemia; D53.9 Nutritional anemia, unspecified; W19.XXXA Unspecified fall, initial encounter; E78.5 Hyperlipidemia, unspecified; I27.21 Secondary pulmonary arterial hypertension; K57.30 Diverticulosis of large intestine without perforation or abscess without bleeding; K76.9 Liver disease, unspecified; R13.10 Dysphagia, unspecified; R29.6 Repeated falls; R62.7 Adult failure to thrive; Z87.440 Personal history of urinary (tract) infections; R91.8 Other nonspecific abnormal finding of lung field; Z66 Do not resuscitate; I07.1 Rheumatic tricuspid insufficiency; I34.81 Nonrheumatic mitral (valve) annulus calcification; N26.1 Atrophy of kidney (terminal); Z51.5 Encounter for palliative care; Z79.899 Other long term (current) drug therapy; Z77.090 Contact with and (suspected) exposure to asbestos; Z91.041 Radiographic dye allergy status
CPT/HCPCS: 36415; 70450; 71045; 71046; 71250; 73130; 74176; 75989; 76700; 76942; 80048; 80053; 80307; 81001; 82436; 82803; 82945; 83605; 83615; 83690; 83735; 83880; 84100; 84133; 84145; 84157; 84295; 84300; 84484; 85025; 85610; 85730; 86331; 86635; 87040; 87070; 87075; 87081; 87086; 87205; 87811; 89051; 93005; 93225; 93880; 94640; 96374; 96375; 97162; 99285; 99308; A4300; A7048; A9270; J0456; J0696; J1642; J1644; J1938; J3010; J3475; J3480; J3490; J7050

== ENCOUNTER 2025-03-23 14:09 | Emergency (ER) | payer MEDICARE, SELFPAY ==
--- NOTE | 2025-03-24 09:00 | ESPR_ITS ---
Documentation for date of: 03/24/25 Subjective Subjective Interval history: Patient seen and examined at the bedside. Her oxygen requirement was decreased from 5 L to 2 L via oxygen via nasal cannula after the thoracocentesis. Patient did feel better and primary team did discharge the patient to the SNF. Patient was hypoxic again, hence she was sent back to the hospital for further evaluation. Patient still does have sacral edema which has been noted before and recommend to continue diuresis with 2 mg Bumex twice daily for now and continue fluid restriction of 1.2 L/min. As per the primary team patient and the family do not want any further workup for possible malignancy and which is lung mass measuring 2 cm. Cytology from the pleural fluid is still pending. Discussed with the primary team that patient it will not be a candidate for TAVR also if she is not pursuing any further treatment for her possible malignancy as she will need a full workup and at least need to have a survival rate of 2 years for the TAVR. They do not wish to pursue any kind of oncology consultation for evaluation and prognosis. Patient and family's wishes should be respected and the goal of treatment is now only to help with her breathing and hypoxia and hence recommend to continue the aggressive diuresis. Today pt family expressed wishes to make the pt DNR/ DNI and completed comfort care with possible hospice. Cardiology will sign off now. Exam Narrative Exam General Appearance: Alert & Oriented X3, thin female who is lying in bed in no acute distress but a bit lethargic HEENT: Skull symmetrical and atraumatic. Conjunctivae pale pink and moist. Pupils equal, round, reactive to light and accommodation (PERRL). Cardio: Normal Rate and irregular rhythm with S1 and S2 heart sounds. Systolic Murmur noted. No bruits on carotid auscultation. Trace peripheral edema. Improving upper thigh edema. Lungs: Symmetric with equal expansion. Chest and back non-tender. Breath sound with mild crackles and some sob. Abdomen: Non-tender, Non-distended, Normal Reactive Bowel Sounds Neuro: Alert, cooperative, oriented to person, place, and time. lethargic Assessment & Plan A&P Narrative 84-year-old female with a past medical history of CAD multi-vessel disease status post PCI LAD and RCA (2017), severe aortic stenosis, CHF HFpEF 65% (), chronic atrial fibrillation, history of hypertension, hyperlipidemia, gout history of CVA, interstitial fibrosis, interstitial lung with home oxygen 2 L, disease to the emergency room by EMS on 03/07/2025 with a chief complaint of syncopal episodes who was admitted for acute on chronic CHF exacerbation. #Acute on chronic congestive heart failure #CHF HFrEF EF 65% #Severe calcified aortic stenosis, 3.2 m/s #RSVP 56 mmHg #Pleural effusion status post thoracentesis (03/15/2025) s/p pigtail pleural cath (03/22/2025) Past medical history of congestive heart failure with sever aortic stenosis and pulmonary arterial hypertension. Patient may not be adherent to fluid restriction and salt restrictions. Patient would benefit from aortic valve repla cement given severe aortic stenosis. Peak velocity of 3.2 m/s. Cxr (03/18/2025): Mild to moderate enlargment of cardiac contour Prominent vascular congestion, perihilar basilar edema, consider superimposed pneumonia or right base. Large right and moderate left pleural effusion. Echo (02/10/2025)Aortic root appears mildly dilated.Aortic valve leaflets are heavy calcification appears to have severe calcific aortic stenosis opening appears with only 1 to 2 mm in both parasternal long axis view and apical views.Peak aortic velocity measured 3.2 m/s but was not parallel to the jet most likely Mr. Severe calcific aortic stenosis.Heavy mitral annulus calcification mitral valve thickening with evidence of mild to moderate 1-2+ mitral regurgitation.Normal-sized left ventricle with evidence of concentric left ventricle hypertrophy with normal left ventricle wall motion normal ejection fraction of 65%. RV is normal in size., right ventricle appears to be mildly dilated with RV dysfunction. The estimated right ventricular systolic pressure, 56 mmHg. RAP 15.There is significant biatrial enlargement. Moderate tricuspid regurgitation. current weight 72.37 (increase) kg, dry weight during previous discharge 61.008 BNP 704 03/22/2025: 770/1775/-1005 Cumulative 9470 Plan -consider repeat chest X-ray AM -Bumex 2 mg IV BID, monitor kidney function -Patient still continues to have significant edema and most of it is in the sacral area. BNP also is 584. Her dry weight also did not change much since admission. Patient's sodium is still 125 and is minimally confused. Heart failure mostly secondary to the severe aortic stenosis in the setting of HFpEF. -Recommend aggressive diuresis for now with Bumex 2 mg IV twice daily and fluid restriction of at least 1.2 L/day. -Needs to be net -1 to 2 L/day. -Carvedilol 12.5 BID -K>4 and Mg >2 -SpO <90%, support PRN -Daily Weights, Strict Ins and Outs, Fluid Strictions (1500), Sodium Restriction 2 grams per day #Severe Aortic Stenosis Discussed with the primary team that patient it will not be a candidate for TAVR also if she is not pursuing any further treatment for her possible malignancy as she will need a full workup and at least need to have a survival rate of 2 years for the TAVR. They do not wish to pursue any kind of oncology consultation for evaluation and prognosis. Patient and family's wishes should be respected and the goal of treatment is now only to help with her breathing and hypoxia and hence recommend to continue the aggressive diuresis. Today pt family expressed wishes to make the pt DNR/ DNI and completed comfort care with possible hospice. Cardiology will sign off now. #Atrial fibrillation, rate controlled Past medical history of atrial fibrillation, rate controlled on carvedilol 12.5 mg BID and Eliquis 2.5 mg BID CHADSVAs 4 points Plan -Eliquis, consider resuming if no amelia bleeding noted. -Continue home medicating of Carvedilol -Monitor for signs of bleeding -K>4 and Mg >2 #CAD s/p PCI #Hyperlipidemia Given patient's past medical history of CAD s/p PCI continue patient would bene fit from Aspirin and high intensity statins, age not being aplicable fo ACSVD. Lipid: Triglycerides 95, Choleterol 104, LDL 55, HDL 30 Plan -Continue home Atorvastin 40 mg HS, consider high intensivity of AST/ALTs permit -Asprin 81 mg qday #Hypertension Home medication of Benazepril Plan -continue home medication -Hold inf SBP <120 #Hypo-somolar Hypervolemic Hyponatremia Likely in the setting of congestive heart failure as patient appeared to be fluid overloaded upon admission give urine sodium noted to 31, thus greater than >20 mEq of NA, which would place patient in renal failure, but this is unlikely given no failure noted. CT abdomen note dot have left kidney atrophic. Urine sodium likely off given use of diuretis. Hyponatremia likely in the setting of CHF vs Abdomen US noted for Cirrhosis, Although patient does not appear euvolemic urine Na is in range to SIADH levels. Per nephrology, salt tablet decreased to BID. (03/21/2025): Na 126 Osmolarity 263 (03/22/2025) Na 128, Osmolarity 263 BUN 29, Cr 0.8, BUN/Cr 36 Plan -Fluid restriction -Per Nephrology -Salt Tablet BID #Syncope, improved On arrival patient complaing of syncopal event. Syncopal event likely secondary to acute on chronic chf exacerbation given pleural effusion noted once again as well as history of atrial fibrillation. CT head netative for acute hemorrhage or mass effect. L. and R. Carotid reported 0-10% stenosis. Plan -Treat underlying, CHF exacerbation -consider orthostatic vitals -continue to monitor BP and heart rate. #CAP, likely GPC #Leukocytosis Bilateral pneumonia noted on chest x-ray Cxr (03/18/2025): Mild to moderate enlargment of cardiac contour Prominent vascular congestion, perihilar basilar edema, consider superimposed pneumonia or right base. Large right and moderate left pleural effusion. Increasing leukocytosis, given pleural effusion, may be contributing. Plan -Ceftriaxone (03/10/2025-03/18/2025) and azithromythin (03/10/2025) -MRSA Negative -Pleural Culture Negative. #Macroytic Anemia Likely in the setting of of hydroxyurea treatment for polycythemia likely secondary to bone marrow supression. Previous Folate >24 (12/28/2022). Plan -consider B12 and Folate levels -Continue Folic Acid #Polycythemia Home medication of Hydroxyurea 1000 mg #Gout Allopurinol 300 mg #History of CVA 2017 #Pulmonary mass left midlung measures actually smaller, 19 mm, compared to 28 mm on February 02, 2025 Health Maintenance: Disp: Pt is currently admitted to floors for further management of CHF exacerbation and hyponatremia, cardiology following FEN: NPO aftermidnight for Planned thoracentesis, Eliquis on hold DVT: compression device Code: DNR Management of rest of the medical conditions as per primary team and other consultants. Today pt family expressed wishes to make the pt DNR/ DNI and completed comfort care with possible hospice. Cardiology will sign off now. Oumar Marinelli M.D. Interventional Cardiology Time Spent With Patient Time: Total time spent is greater than 50% in coordination of care (as documented) at patient's floor/unit and/or counseling patient:
== END 2025-03-23 16:00 | disposition home or self-care (01) ==
LOC: SERX 14:41 → SERHOLD 15:05
PROVIDERS: Emergency Provider Emergency Medicine; PCP Specialist; Referring Provider Emergency Medicine; Visit Provider Student in an Organized Health Care Education/Training Program
DX: I11.0 Hypertensive heart disease with heart failure (principal); J18.9 Pneumonia, unspecified organism; D64.9 Anemia, unspecified; D75.1 Secondary polycythemia; M10.9 Gout, unspecified; Z86.73 Personal history of transient ischemic attack (TIA), and cerebral infarction without residual deficits; Z66 Do not resuscitate; Z51.5 Encounter for palliative care